=== PATIENT | female | born 1950 | race Two or more races ===

== ENCOUNTER → 2018-03-08 | Outpatient (CLI) | payer MEDICARE | END | disposition home or self-care (01) | LOC: MAMMO 09:37 | DX: Z12.31 Encounter for screening mammogram for malignant neoplasm of breast (principal) | CPT/HCPCS: 77063; 77067 ==

== ENCOUNTER → 2018-04-09 | Outpatient (CLI) | payer MEDICARE ==
[2018-04-09] MEDS: REGADENOSON 0.4 MG/5 ML DISP.SYRIN. IV (09:55)
== END | disposition home or self-care (01) ==
LOC: NM 07:47
DX: I08.1 Rheumatic disorders of both mitral and tricuspid valves (principal); I27.20 Pulmonary hypertension, unspecified; I10 Essential (primary) hypertension; E11.9 Type 2 diabetes mellitus without complications; I73.9 Peripheral vascular disease, unspecified
CPT/HCPCS: 78452; 93017; 93306; 93925; 96374; 96375; 96376; A9500; J2785

== ENCOUNTER 2020-05-18 08:32 | Inpatient (IN) | payer MEDICARE ==
[~2020-05-18] VITALS: Ht 152.4 cm; Wt 82.6 kg
[2020-05-18 09:06] LABS: BASO % 0 % (0-3); EOS # 0.1 x10^3/uL (0.0-0.7); EOS % 1 % (0-3); HEMATOCRIT 28.6 % (36.0-47.0); HEMOGLOBIN 9.5 g/dL (12.0-15.5); LYMPH # 0.8 x10^3/uL (1.0-4.8); LYMPH % 7 % (24-48); MEAN CORPUSCULAR HEMOGLOBIN 28 pg (25-35); MEAN CORPUSCULAR HGB CONC 33 g/dL (31-37); MEAN CORPUSCULAR VOLUME 84 fL (79-100); MONO # 0.7 x10^3/uL (0.0-1.1); MONO % 7 % (0-9); NEUT # 8.8 x10^3/uL (1.8-7.7); NEUT % 85 % (31-73); PLATELET COUNT 230 x10^3/uL (140-400); RED CELL DISTRIBUTION WIDTH 16.3 % (11.5-14.5); WHITE BLOOD COUNT 10.4 x10^3/uL (4.0-11.0)
[2020-05-18 09:10] LABS: CALCIUM 8.6 mg/dL (8.5-10.1); CREATININE 1.2 mg/dL (0.6-1.0); GFR 44.7; POTASSIUM 3.5 mmol/L (3.5-5.1)
[2020-05-18 09:11] LABS: BILIRUBIN,URINE NEGATIVE (NEG); CLARITY,URINE CLEAR; COLOR,URINE YELLOW; NITRITE,URINE NEGATIVE (NEG); PROTEIN,URINE 30 mg/dL (NEG-TRACE); UROBILINOGEN,URINE 0.2 mg/dL (0.2 mg/dL)
[2020-05-18] MEDS ORDERED: cefTRIAXone IV Push 1 GM VIAL. IVP ONE (09:15)
[2020-05-18] MEDS ORDERED: IV NORMAL SALINE 1000ML BAG 1,000 ML IV ONE (09:15)
[2020-05-18 09:16] LABS: PROTHROMBIN TIME PATIENT 14.7 SEC (11.7-14.0)
[2020-05-18 09:17] LABS: BARBITURATES NEG (NEG); BENZODIAZEPINES NEG (NEG); CANNABINOIDS NEG (NEG); COCAINE NEG (NEG); METHADONE NEG (NEG); OPIATES NEG (NEG); PHENCYCLIDINE NEG (NEG)
[2020-05-18 09:19] LABS: AMPHETAMINE/METHAMPHETAMINE NEG (NEG)
[2020-05-18 09:20] LABS: ALBUMIN 2.3 g/dL (3.4-5.0); ALBUMIN/GLOBULIN RATIO 0.5 (1.0-1.7); TOTAL BILIRUBIN 0.4 mg/dL (0.2-1.0); TOTAL PROTEIN 6.9 g/dL (6.4-8.2)
--- NOTE | 2020-05-18 09:23 | RAD ---
PORTABLE CHEST 1V History: Altered mental status. CVA / Spl. Instructions: / History: Comparison: None. Findings: Multifocal interstitial and alveolar opacities. Small left pleural effusion. No pneumothorax. Normal heart size. Impression: 1. Multifocal interstitial and alveolar opacities, may represent multifocal pneumonia including viral pneumonia or pulmonary edema. 2. Small left pleural effusion. Electronically signed by: Mikel Betancur DO (05/18/2020 9:20 AM) [id number]
--- NOTE | 2020-05-18 09:28 | RAD ---
CT HEAD WO CONTRAST History: Reason: altered mental status Comparison: None. Technique: Noncontrast CT imaging was performed of the head. Exposure: One or more of the following individualized dose reduction techniques were utilized for this examination: 1. Automated exposure control 2. Adjustment of the mA and/or kV according to patient size 3. Use of iterative reconstruction technique. Findings: No intracranial hemorrhage. No mass effect. No hydrocephalus. Mild foci of decreased attenuation within the hemispheric white matter, most often due to chronic microvascular ischemia. Imaged orbits are unremarkable. Tiny left sphenoid fluid. Mastoid air cells are clear. No acute calvarial fracture. Impression: 1. No acute intracranial hemorrhage. 2. Hypoattenuation within the left external capsule, may relate to prior insult although age indeterminate. If persistent concern for acute ischemia, MRI can better evaluate. 3. Mild sequelae of chronic microvascular ischemia. Electronically signed by: Mikel Betancur DO (05/18/2020 9:25 AM) [id number]
[2020-05-18 09:32] LABS: AMORPHOUS SEDIMENT,UR PRESENT /HPF; BACTERIA,URINE 0 /HPF (0-FEW); RBC,URINE 0 /HPF (0-2); SQUAMOUS EPITHELIAL CELL,UR FEW /LPF
--- NOTE | 2020-05-18 09:39 | PHYS DOC ---
Past Medical History Past Medical History: Diabetes-Type II, Hypertension Past Surgical History: Other Additional Past Surgical Histo: UNKNOWN SURGICAL HISTORY Smoking Status: Never Smoker Alcohol Use: None General Adult EDM: Chief Complaint: ALTERED MENTAL STATUS HPI: HPI: Patient is a 70-year-old female who presents via EMS this morning secondary to being unresponsive. Apparently the patient was last known normal approximately 9 PM last night. Her son called this morning and she did not respond therefore when checked on her and she was unresponsive. EMS arrived and noted that her blood sugar was 17. Patient is unable to provide any history given her altered mental status. [] Review of Systems: Review of Systems: Review of systems is unobtainable secondary to altered mental status [] Heart Score: Risk Factors: Risk Factors: DM, Current or recent (<one month) smoker, HTN, HLP, family history of CAD, obesity. Risk Scores: Score 0 - 3: 2.5% MACE over next 6 weeks - Discharge Home Score 4 - 6: 20.3% MACE over next 6 weeks - Admit for Clinical Observation Score 7 - 10: 72.7% MACE over next 6 weeks - Early Invasive Strategies Current Medications: Current Medications Medications (Trade) Dose Ordered Sig/Nini Start Time Stop Time Status Last Admin Dose Admin Ceftriaxone Sodium (Rocephin) 1 gm 1X ONCE 05/18/20 09:15 05/18/20 09:16 DC 05/18/20 09:28 1 GM Sodium Chloride 1,000 ml @ 1,000 mls/hr 1X ONCE 05/18/20 09:15 05/18/20 10:14 05/18/20 09:29 1,000 MLS/HR Allergies: Allergies: Allergies Coded Allergies Type Severity Reaction Last Updated Verified No Known Drug Allergies 04/09/18 No Physical Exam: PE: Constitutional: Well developed, well nourished, no acute distress, non-toxic appearance. [] HENT: Normocephalic, atraumatic, bilateral external ears normal, oropharynx moist, no oral exudates, nose normal. [] Eyes: PERRLA, EOMI, conjunctiva normal, no discharge. [] Neck: Normal range of motion, no tenderness, supple, no stridor. [] Cardiovascular:Heart rate regular rhythm, no murmur [] Lungs & Thorax: Bilateral breath sounds clear to auscultation [] Abdomen: Bowel sounds normal, soft, no tenderness, no masses, no pulsatile masses. [] Skin: Warm, dry, no erythema, no rash. [] Back: No tenderness, no CVA tenderness. [] Extremities: No tenderness, no cyanosis, no clubbing, ROM intact, no edema. [] Neurologic: Alert and oriented X 3, normal motor function, normal sensory function, no focal deficits noted. [] Psychologic: Affect normal, judgement normal, mood normal. [] Current Patient Data: Labs: Laboratory Tests Test 05/18/20 08:40 05/18/20 08:50 White Blood Count 10.4 x10^3/uL (4.0-11.0) Red Blood Count 3.40 x10^6/uL (3.50-5.40) L Hemoglobin 9.5 g/dL (12.0-15.5) L Hematocrit 28.6 % (36.0-47.0) L Mean Corpuscular Volume 84 fL (79-100) Mean Corpuscular Hemoglobin 28 pg (25-35) Mean Corpuscular Hemoglobin Concent 33 g/dL (31-37) Red Cell Distribution Width 16.3 % (11.5-14.5) H Platelet Count 230 x10^3/uL (140-400) Neutrophils (%) (Auto) 85 % (31-73) H Lymphocytes (%) (Auto) 7 % (24-48) L Monocytes (%) (Auto) 7 % (0-9) Eosinophils (%) (Auto) 1 % (0-3) Basophils (%) (Auto) 0 % (0-3) Neutrophils # (Auto) 8.8 x10^3/uL (1.8-7.7) H Lymphocytes # (Auto) 0.8 x10^3/uL (1.0-4.8) L Monocytes # (Auto) 0.7 x10^3/uL (0.0-1.1) Eosinophils # (Auto) 0.1 x10^3/uL (0.0-0.7) Basophils # (Auto) 0.0 x10^3/uL (0.0-0.2) Platelet Estimate Pending Prothrombin Time 14.7 SEC (11.7-14.0) H Prothrombin Time INR 1.2 (0.8-1.1) H Activated Partial Thromboplast Time 37 SEC (24-38) Sodium Level 138 mmol/L (136-145) Potassium Level 3.5 mmol/L (3.5-5.1) Chloride Level 104 mmol/L (98-107) Carbon Dioxide Level 22 mmol/L (21-32) Anion Gap 12 (6-14) Blood Urea Nitrogen 40 mg/dL (7-20) H Creatinine 1.2 mg/dL (0.6-1.0) H Estimated GFR (Cockcroft-Gault) 44.7 BUN/Creatinine Ratio 33 (6-20) H Glucose Level 130 mg/dL (70-99) H Lactic Acid Level 0.9 mmol/L (0.4-2.0) Calcium Level 8.6 mg/dL (8.5-10.1) Magnesium Level 2.0 mg/dL (1.8-2.4) Total Bilirubin 0.4 mg/dL (0.2-1.0) Aspartate Amino Transferase (AST) 93 U/L (15-37) H Alanine Aminotransferase (ALT) 54 U/L (14-59) Alkaline Phosphatase 383 U/L (46-116) H Ammonia < 10 mcmol/L (11-34) L Creatine Kinase 45 U/L (26-192) Troponin I Quantitative < 0.017 ng/mL (0.000-0.055) Total Protein 6.9 g/dL (6.4-8.2) Albumin 2.3 g/dL (3.4-5.0) L Albumin/Globulin Ratio 0.5 (1.0-1.7) L Thyroid Stimulating Hormone (TSH) 0.188 uIU/mL (0.358-3.74) L Ethyl Alcohol Level < 10 mg/dL (0-10) Urine Collection Type U cath Urine Color Yellow Urine Clarity Clear Urine pH 5.0 (<5.0-8.0) Urine Specific [place] 1.020 (1.000-1.030) Urine Protein 30 mg/dL (NEG-TRACE) Urine Glucose (UA) Negative mg/dL (NEG) Urine Ketones (Stick) Negative mg/dL (NEG) Urine Blood Negative (NEG) Urine Nitrite Negative (NEG) Urine Bilirubin Negative (NEG) Urine Urobilinogen Dipstick 0.2 mg/dL (0.2 mg/dL) Urine Leukocyte Esterase Small (NEG) Urine RBC 0 /HPF (0-2) Urine WBC 1-4 /HPF (0-4) Urine Squamous Epithelial Cells Few /LPF Urine Amorphous Sediment Present /HPF Urine Bacteria 0 /HPF (0-FEW) Urine Mucus Mod /LPF Urine Opiates Screen Neg (NEG) Urine Methadone Screen Neg (NEG) Urine Barbiturates Neg (NEG) Urine Phencyclidine Screen Neg (NEG) Urine Amphetamine/Methamphetamine Neg (NEG) Urine Benzodiazepines Screen Neg (NEG) Urine Cocaine Screen Neg (NEG) Urine Cannabinoids Screen Neg (NEG) Urine Ethyl Alcohol Neg (NEG) Laboratory Tests 05/18/20 08:40 Laboratory Tests 05/18/20 08:40 Vital Signs: Vital Signs Date Time Temp Pulse Resp B/P (MAP) Pulse Ox O2 Delivery O2 Flow Rate FiO2 05/18/20 09:00 91.3 54 20 114/48 (70) 90 Room Air 91.3 EKG: EKG: [EKG: Normal sinus rhythm rate of [address]-T changes] Radiology/Procedures: Radiology/Procedures: []PROCEDURE: CT HEAD WO CONTRAST CT HEAD WO CONTRAST History: Reason: altered mental status Comparison: None. Technique: Noncontrast CT imaging was performed of the head. Exposure: One or more of the following individualized dose reduction techniques were utilized for this examination: 1. Automated exposure control 2. Adjustment of the mA and/or kV according to patient size 3. Use of iterative reconstruction technique. Findings: No intracranial hemorrhage. No mass effect. No hydrocephalus. Mild foci of decreased attenuation within the hemispheric white matter, most often due to chronic microvascular ischemia. Imaged orbits are unremarkable. Tiny left sphenoid fluid. Mastoid air cells are clear. No acute calvarial fracture. Impression: 1. No acute intracranial hemorrhage. 2. Hypoattenuation within the left external capsule, may relate to prior insult although age indeterminate. If persistent concern for acute ischemia, MRI can better evaluate. 3. Mild sequelae of chronic microvascular ischemia. Course & Med Decision Making: Course & Med Decision Making Pertinent Labs and Imaging studies reviewed. (See chart for details) [ED course: Evaluation reveals a 70-year-old female with altered mental status and hypoglycemia. EMS did give her an amp of D50 in route and her blood sugar on arrival here was in the 160s and slowly her mental status returned. Of note, her core temperature was 91 so a bear hugger was placed.] Dragon Disclaimer: Dragon Disclaimer: This electronic medical record was generated, in whole or in part, using a voice recognition dictation system. Departure Departure Impression: Primary Impression: Altered mental status Qualified Codes: R41.82 - Altered mental status, unspecified Additional Impressions: Hypoglycemia Hypothermia Qualified Codes: T68.XXXA - Hypothermia, initial encounter Disposition: ADMITTED INPATIENT Condition: GUARDED Referrals: GISSELLE EDMONDS MD (PCP) Justicifation of Admission Dx: Justifications for Admission: Justification of Admission Dx: Yes Diabetic Urgency: Diabetic Urgency LISA VELARDE DO May 18, 2020 09:39
[2020-05-18] MEDS ORDERED: ONDANSETRON PF 4 MG/2 ML VIAL. IV PRN ×2 (10:15→16:30)
[2020-05-18] MEDS ORDERED: ACETAMINOPHEN 325 MG TABLET. PO PRN (10:15)
[2020-05-18 10:17] LABS: % BANDS 3 % (0-9); % EOS 1 % (0-5); % LYMPHS 7 % (24-48); % MONOS 4 % (0-10); % SEGS 85 % (35-66); NUCLEATED RBC 1; PLT ESTIMATE ADEQUATE (ADEQUATE)
--- NOTE | 2020-05-18 10:21 | EKG ---
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
[2020-05-18 10:22] LABS: POLYCHROMASIA SLIGHT
--- NOTE | 2020-05-18 10:23 | PDOC1 ---
History and Physical Date of Admission Date of Admission DATE: 05/18/20 TIME: 10:23 Identification/Chief Complaint Chief Complaint SEEN IN ER WITH HYPOTHERMIA, HYPOGLYCEMIA 70-year-old female who presents via EMS this morning secondary to being unresponsive. last known normal approximately 9 PM last night. Her son called this morning and she did not respond therefore when checked on her and she was unresponsive. EMS arrived and noted that her blood sugar was 17. //unable to provide any history given her altered mental status. [ Past Medical History Past Medical History Past Medical History Past Medical History Past Medical History: Diabetes-Type II, Hypertension Past Surgical History: Other Additional Past Surgical Histo: UNKNOWN SURGICAL HISTORY Smoking Status: Never Smoker Alcohol Use: None fhx obesity Family History Family History: Hypertension Social History Smoke: No ALCOHOL: none Drugs: None Current Problem List Problem List Problems Medical Problems: (1) Altered mental status Status: Acute (2) Hypoglycemia Status: Acute (3) Hypothermia Status: Acute Current Medications Current Medications Current Medications Sodium Chloride 1,000 ml @ 1,000 mls/hr 1X ONCE IV Last administered on 05/18/20at 09:29; Start 05/18/20 at 09:15; Stop 05/18/20 at 10:14; Status DC Ceftriaxone Sodium (Rocephin) 1 gm 1X ONCE IVP Last administered on 05/18/20at 09:28; Start 05/18/20 at 09:15; Stop 05/18/20 at 09:16; Status DC Ondansetron HCl (Zofran) 4 mg PRN Q8HRS PRN IV NAUSEA/VOMITING; Start 05/18/20 at 10:15; Stop 05/19/20 at 10:14 Acetaminophen (Tylenol) 650 mg PRN Q4HRS PRN PO FEVER > 100.3'F; Start 05/18/20 at 10:15; Stop 05/19/20 at 10:14 Allergies Allergies: Coded Allergies: No Known Drug Allergies (Unverified , 04/09/18) Physical Exam Physical Exam HENT: Normocephalic, atraumatic, bilateral external ears normal, oropharynx moist, no oral exudates, nose normal. [] Eyes: PERRLA, EOMI, conjunctiva normal, no discharge. [] Neck: Normal range of motion, no tenderness, supple, no stridor. [] Cardiovascular:Heart rate regular rhythm, no murmur [] Lungs & Thorax: Bilateral breath sounds clear to auscultation [] Abdomen: Bowel sounds normal, soft, no tenderness, no masses, no pulsatile masses. [] Skin: Warm, dry, no erythema, no rash. [] Back: No tenderness, no CVA tenderness. [] General: Cooperative, No acute distress HEENT: EOMI, Mucous membr. moist/pink Abdomen: Soft Neuro: Normal speech, Cranial nerves 3-12 NL Psych/Mental Status: Mood NL Vitals Vitals Vital Signs Date Time Temp Pulse Resp B/P (MAP) Pulse Ox O2 Delivery O2 Flow Rate FiO2 05/18/20 09:00 91.3 54 20 114/48 (70) 90 Room Air 91.3 Labs Labs Laboratory Tests Test 05/18/20 08:40 05/18/20 08:50 White Blood Count 10.4 x10^3/uL (4.0-11.0) Red Blood Count 3.40 x10^6/uL (3.50-5.40) Hemoglobin 9.5 g/dL (12.0-15.5) Hematocrit 28.6 % (36.0-47.0) Mean Corpuscular Volume 84 fL (79-100) Mean Corpuscular Hemoglobin 28 pg (25-35) Mean Corpuscular Hemoglobin Concent 33 g/dL (31-37) Red Cell Distribution Width 16.3 % (11.5-14.5) Platelet Count 230 x10^3/uL (140-400) Neutrophils (%) (Auto) 85 % (31-73) Lymphocytes (%) (Auto) 7 % (24-48) Monocytes (%) (Auto) 7 % (0-9) Eosinophils (%) (Auto) 1 % (0-3) Basophils (%) (Auto) 0 % (0-3) Neutrophils # (Auto) 8.8 x10^3/uL (1.8-7.7) Lymphocytes # (Auto) 0.8 x10^3/uL (1.0-4.8) Monocytes # (Auto) 0.7 x10^3/uL (0.0-1.1) Eosinophils # (Auto) 0.1 x10^3/uL (0.0-0.7) Basophils # (Auto) 0.0 x10^3/uL (0.0-0.2) Segmented Neutrophils % 85 % (35-66) Band Neutrophils % 3 % (0-9) Lymphocytes % 7 % (24-48) Monocytes % 4 % (0-10) Eosinophils % 1 % (0-5) Nucleated Red Blood Cells 1 Dohle Bodies Few Platelet Estimate Adequate (ADEQUATE) Polychromasia Slight Prothrombin Time 14.7 SEC (11.7-14.0) Prothromb Time International Ratio 1.2 (0.8-1.1) Activated Partial Thromboplast Time 37 SEC (24-38) Sodium Level 138 mmol/L (136-145) Potassium Level 3.5 mmol/L (3.5-5.1) Chloride Level 104 mmol/L (98-107) Carbon Dioxide Level 22 mmol/L (21-32) Anion Gap 12 (6-14) Blood Urea Nitrogen 40 mg/dL (7-20) Creatinine 1.2 mg/dL (0.6-1.0) Estimated GFR (Cockcroft-Gault) 44.7 BUN/Creatinine Ratio 33 (6-20) Glucose Level 130 mg/dL (70-99) Lactic Acid Level 0.9 mmol/L (0.4-2.0) Calcium Level 8.6 mg/dL (8.5-10.1) Magnesium Level 2.0 mg/dL (1.8-2.4) Total Bilirubin 0.4 mg/dL (0.2-1.0) Aspartate Amino Transf (AST/SGOT) 93 U/L (15-37) Alanine Aminotransferase (ALT/SGPT) 54 U/L (14-59) Alkaline Phosphatase 383 U/L (46-116) Ammonia < 10 mcmol/L (11-34) Creatine Kinase 45 U/L (26-192) Troponin I Quantitative < 0.017 ng/mL (0.000-0.055) Total Protein 6.9 g/dL (6.4-8.2) Albumin 2.3 g/dL (3.4-5.0) Albumin/Globulin Ratio 0.5 (1.0-1.7) Thyroid Stimulating Hormone (TSH) 0.188 uIU/mL (0.358-3.74) Ethyl Alcohol Level < 10 mg/dL (0-10) Urine Collection Type U cath Urine Color Yellow Urine Clarity Clear Urine pH 5.0 (<5.0-8.0) Urine Specific [place] 1.020 (1.000-1.030) Urine Protein 30 mg/dL (NEG-TRACE) Urine Glucose (UA) Negative mg/dL (NEG) Urine Ketones (Stick) Negative mg/dL (NEG) Urine Blood Negative (NEG) Urine Nitrite Negative (NEG) Urine Bilirubin Negative (NEG) Urine Urobilinogen Dipstick 0.2 mg/dL (0.2 mg/dL) Urine Leukocyte Esterase Small (NEG) Urine RBC 0 /HPF (0-2) Urine WBC 1-4 /HPF (0-4) Urine Squamous Epithelial Cells Few /LPF Urine Amorphous Sediment Present /HPF Urine Bacteria 0 /HPF (0-FEW) Urine Mucus Mod /LPF Urine Opiates Screen Neg (NEG) Urine Methadone Screen Neg (NEG) Urine Barbiturates Neg (NEG) Urine Phencyclidine Screen Neg (NEG) Urine Amphetamine/Methamphetamine Neg (NEG) Urine Benzodiazepines Screen Neg (NEG) Urine Cocaine Screen Neg (NEG) Urine Cannabinoids Screen Neg (NEG) Urine Ethyl Alcohol Neg (NEG) Laboratory Tests Test 05/18/20 08:40 05/18/20 08:50 White Blood Count 10.4 x10^3/uL (4.0-11.0) Red Blood Count 3.40 x10^6/uL (3.50-5.40) Hemoglobin 9.5 g/dL (12.0-15.5) Hematocrit 28.6 % (36.0-47.0) Mean Corpuscular Volume 84 fL (79-100) Mean Corpuscular Hemoglobin 28 pg (25-35) Mean Corpuscular Hemoglobin Concent 33 g/dL (31-37) Red Cell Distribution Width 16.3 % (11.5-14.5) Platelet Count 230 x10^3/uL (140-400) Neutrophils (%) (Auto) 85 % (31-73) Lymphocytes (%) (Auto) 7 % (24-48) Monocytes (%) (Auto) 7 % (0-9) Eosinophils (%) (Auto) 1 % (0-3) Basophils (%) (Auto) 0 % (0-3) Neutrophils # (Auto) 8.8 x10^3/uL (1.8-7.7) Lymphocytes # (Auto) 0.8 x10^3/uL (1.0-4.8) Monocytes # (Auto) 0.7 x10^3/uL (0.0-1.1) Eosinophils # (Auto) 0.1 x10^3/uL (0.0-0.7) Basophils # (Auto) 0.0 x10^3/uL (0.0-0.2) Segmented Neutrophils % 85 % (35-66) Band Neutrophils % 3 % (0-9) Lymphocytes % 7 % (24-48) Monocytes % 4 % (0-10) Eosinophils % 1 % (0-5) Nucleated Red Blood Cells 1 Dohle Bodies Few Platelet Estimate Adequate (ADEQUATE) Polychromasia Slight Prothrombin Time 14.7 SEC (11.7-14.0) Prothromb Time International Ratio 1.2 (0.8-1.1) Activated Partial Thromboplast Time 37 SEC (24-38) Sodium Level 138 mmol/L (136-145) Potassium Level 3.5 mmol/L (3.5-5.1) Chloride Level 104 mmol/L (98-107) Carbon Dioxide Level 22 mmol/L (21-32) Anion Gap 12 (6-14) Blood Urea Nitrogen 40 mg/dL (7-20) Creatinine 1.2 mg/dL (0.6-1.0) Estimated GFR (Cockcroft-Gault) 44.7 BUN/Creatinine Ratio 33 (6-20) Glucose Level 130 mg/dL (70-99) Lactic Acid Level 0.9 mmol/L (0.4-2.0) Calcium Level 8.6 mg/dL (8.5-10.1) Magnesium Level 2.0 mg/dL (1.8-2.4) Total Bilirubin 0.4 mg/dL (0.2-1.0) Aspartate Amino Transf (AST/SGOT) 93 U/L (15-37) Alanine Aminotransferase (ALT/SGPT) 54 U/L (14-59) Alkaline Phosphatase 383 U/L (46-116) Ammonia < 10 mcmol/L (11-34) Creatine Kinase 45 U/L (26-192) Troponin I Quantitative < 0.017 ng/mL (0.000-0.055) Total Protein 6.9 g/dL (6.4-8.2) Albumin 2.3 g/dL (3.4-5.0) Albumin/Globulin Ratio 0.5 (1.0-1.7) Thyroid Stimulating Hormone (TSH) 0.188 uIU/mL (0.358-3.74) Ethyl Alcohol Level < 10 mg/dL (0-10) Urine Collection Type U cath Urine Color Yellow Urine Clarity Clear Urine pH 5.0 (<5.0-8.0) Urine Specific [place] 1.020 (1.000-1.030) Urine Protein 30 mg/dL (NEG-TRACE) Urine Glucose (UA) Negative mg/dL (NEG) Urine Ketones (Stick) Negative mg/dL (NEG) Urine Blood Negative (NEG) Urine Nitrite Negative (NEG) Urine Bilirubin Negative (NEG) Urine Urobilinogen Dipstick 0.2 mg/dL (0.2 mg/dL) Urine Leukocyte Esterase Small (NEG) Urine RBC 0 /HPF (0-2) Urine WBC 1-4 /HPF (0-4) Urine Squamous Epithelial Cells Few /LPF Urine Amorphous Sediment Present /HPF Urine Bacteria 0 /HPF (0-FEW) Urine Mucus Mod /LPF Urine Opiates Screen Neg (NEG) Urine Methadone Screen Neg (NEG) Urine Barbiturates Neg (NEG) Urine Phencyclidine Screen Neg (NEG) Urine Amphetamine/Methamphetamine Neg (NEG) Urine Benzodiazepines Screen Neg (NEG) Urine Cocaine Screen Neg (NEG) Urine Cannabinoids Screen Neg (NEG) Urine Ethyl Alcohol Neg (NEG) Images Images PORTABLE CHEST 1V History: Altered mental status. CVA / Spl. Instructions: / History: Comparison: None. Findings: Multifocal interstitial and alveolar opacities. Small left pleural effusion. No pneumothorax. Normal heart size. Impression: 1. Multifocal interstitial and alveolar opacities, may represent multifocal pneumonia including viral pneumonia or pulmonary edema. 2. Small left pleural effusion. Electronically signed by: Mikel Betancur DO (05/18/2020 9:20 AM) [id number] CT HEAD WO CONTRAST History: Reason: altered mental status Comparison: None. Technique: Noncontrast CT imaging was performed of the head. Exposure: One or more of the following individualized dose reduction techniques were utilized for this examination: 1. Automated exposure control 2. Adjustment of the mA and/or kV according to patient size 3. Use of iterative reconstruction technique. Findings: No intracranial hemorrhage. No mass effect. No hydrocephalus. Mild foci of decreased attenuation within the hemispheric white matter, most often due to chronic microvascular ischemia. Imaged orbits are unremarkable. Tiny left sphenoid fluid. Mastoid air cells are clear. No acute calvarial fracture. Impression: 1. No acute intracranial hemorrhage. 2. Hypoattenuation within the left external capsule, may relate to prior insult although age indeterminate. If persistent concern for acute ischemia, MRI can better evaluate. 3. Mild sequelae of chronic microvascular ischemia. Electronically signed by: Mikel Betancur DO (05/18/2020 9:25 AM) [id number] VTE Prophylaxis Ordered VTE Prophylaxis Devices: Yes VTE Pharmacological Prophylaxi: Yes Assessment/Plan Assessment/Plan Impression: 1. ALTERED MENTAL STATUS sec to severe hypoglycemia No acute intracranial hemorrhage. 2. Hypoattenuation within the left external capsule, may relate to prior insult although age indeterminate. If persistent concern for acute ischemia, MRI can better evaluate. 3. Mild sequelae of chronic microvascular ischemia. 4. acute metabolic encephalopathy, IMPROVING 5. hypothermia 6. JAKE 7. Multifocal interstitial and alveolar opacities, may represent multifocal pneumonia including viral pneumonia or pulmonary edema. 8. SEVERE protein-caloric malnutrition plan admit icu bed hypoglycemia protocol warm patient neurology consult IV FLUID SUPPORT COVID 19 SCREEN PULM CONSULT 44 MIN CC TIME Justicifation of Admission Dx: Justifications for Admission: Justification of Admission Dx: Yes Altered Mental Status: Altered Mental Status Diabetic Urgency: Diabetic Urgency Comments: admitted with severe hypoglycemia, hypothermia, severe, possible covid-19 SHIVA GILLILAND MD May 18, 2020 10:23
[2020-05-18] MEDS ORDERED: SODIUM PHOSPHATES 19/7GM 133 ML ENEMA. PR PRN (16:30)
[2020-05-18] MEDS ORDERED: ALBUTEROL SULFATE 2.5 MG/3 ML NEBU. NEB PRN (16:30)
[2020-05-18] MEDS ORDERED: 0.9 % SODIUM CHLORIDE 10 ML DISP.SYRIN. IV PRN (16:30)
[2020-05-18] MEDS ORDERED: ACETAMINOPHEN 650 MG SUPP.RECT. PR PRN (16:30)
--- NOTE | 2020-05-18 16:33 | PDOC2 ---
NEUROLOGY CONSULT Date of Admission Date of Admission DATE: 05/18/20 TIME: 16:28 Reason for Consult Reason for Consult: altered mental status, old stroke Referring Physician Referring Physician: Dr. Merlos Source Source: Chart review, Patient History of Present Illness History of Present Illness Patient is a 70-year-old right-handed female admitted with altered mental status found to have hypothermia, temperature 91, and hypoglycemia, sugar level 17. Bud collins is feeling fine now. She does not know what happened to her. She was last seen normal last night. There is no history of stroke, seizure, or head injury. Past Medical History Cardiovascular: HTN Endocrine: Diabetes Past Surgical History Past Surgical History: No pertinent history Family History Family History: DM Social History Social History , retired, no alcohol or tobacco Current Medications Current Medications Current Medications Sodium Chloride 1,000 ml @ 1,000 mls/hr 1X ONCE IV Last administered on 05/18/20at 09:29; Start 05/18/20 at 09:15; Stop 05/18/20 at 10:14; Status DC Ceftriaxone Sodium (Rocephin) 1 gm 1X ONCE IVP Last administered on 05/18/20at 09:28; Start 05/18/20 at 09:15; Stop 05/18/20 at 09:16; Status DC Ondansetron HCl (Zofran) 4 mg PRN Q8HRS PRN IV NAUSEA/VOMITING; Start 05/18/20 at 10:15; Stop 05/18/20 at 16:24; Status DC Acetaminophen (Tylenol) 650 mg PRN Q4HRS PRN PO FEVER > 100.3'F; Start 05/18/20 at 10:15; Stop 05/18/20 at 16:24; Status DC Ceftriaxone Sodium (Rocephin) 1 gm Q24H IVP ; Start 05/19/20 at 09:00 Sodium Chloride (Normal Saline Flush) 3 ml QSHIFT PRN IV AFTER MEDS AND BLOOD DRAWS; Start 05/18/20 at 16:30 Sodium Chloride 1,000 ml @ 85 mls/hr [id number] IV ; Start 05/18/20 at 16:20 Ondansetron HCl (Zofran) 4 mg PRN Q4HRS PRN IV NAUSEA/VOMITING; Start 05/18/20 at 16:30 Acetaminophen (Tylenol) 650 mg PRN Q4HRS PRN PO TEMP OVER 100.4F OR MILD PAIN; Start 05/18/20 at 16:30 Acetaminophen (Tylenol Supp) 650 mg PRN Q4HRS PRN AL TEMP OVER 100.4F OR MILD PAIN; Start 05/18/20 at 16:30 Sodium Monofluorophosphate (Fleet Adult) 133 ml PRN DAILY PRN AL CONSTIPATION; Start 05/18/20 at 16:30 Docusate Sodium (Colace) 100 mg PRN BID PRN PO HARD STOOLS; Start 05/18/20 at 16:30 Albuterol Sulfate (Ventolin Neb Soln) 2.5 mg PRN Q4HRS PRN NEB SHORTNESS OF BREATH; Start 05/18/20 at 16:30 Guaifenesin (Robitussin) 200 mg PRN Q4HRS PRN PO COUGH; Start 05/18/20 at 16:30 Enoxaparin Sodium (Lovenox 40mg Syringe) 40 mg Q24H SQ ; Start 05/18/20 at 17:00 Allergies Allergies: Coded Allergies: No Known Drug Allergies (Unverified , 04/09/18) ROS Review of System Negative for fever, chills, weight loss, shortness of breath, chest pain, indigestion, hematochezia, melena, and dysuria. Full 14-point review of systems is negative. Physical Exam Physical Examination General: Well-developed, well-nourished female in no acute distress HEENT: Normocephalic andatraumatic. Temporal arteriespulsatile and nontender. Neck: Supple without bruit, no meningismus Musculoskeletal: Stability:see neurologic. Gait exam:see neurologic. Tone:see neurologi c.Strength:see neurologic. Neurological: Mental Status:intact, orientation, memory, attention span/concentration, language, fund of knowledge normal, speaks only [place], is only 1 day off on the date. Cranial Nerves:Pupils equal and reactive to light, extraocular movements areintact, visual silvestre are full to confrontation. Facial sensation is normal. There is no facial asymmetry. Vestibulo-ocular reflex is intact. Palate elevates and tongue protrudes in midline. All other cranial related problems are negative except as mentioned before.Reflexes:2+ and symmetric with flexor plantar responses. Motor:5/5 strength with normal tone and bulk. Coordination:Finger-nose finger and [id number] testing are normal. Rapid alternating movements and fine finger movements are intact. Gait:Not tested. Sensory:Normal pinprick, vibration, light touch, proprioception. Vitals VITALS Vital Signs Date Time Temp Pulse Resp B/P (MAP) Pulse Ox O2 Delivery O2 Flow Rate FiO2 05/18/20 16:16 98.3 98.3 05/18/20 15:00 72 18 95 05/18/20 09:00 114/48 (70) Room Air Labs Labs Laboratory Tests Test 05/18/20 08:36 05/18/20 08:40 05/18/20 08:50 Glucose (Fingerstick) 115 mg/dL (70-99) White Blood Count 10.4 x10^3/uL (4.0-11.0) Red Blood Count 3.40 x10^6/uL (3.50-5.40) Hemoglobin 9.5 g/dL (12.0-15.5) Hematocrit 28.6 % (36.0-47.0) Mean Corpuscular Volume 84 fL (79-100) Mean Corpuscular Hemoglobin 28 pg (25-35) Mean Corpuscular Hemoglobin Concent 33 g/dL (31-37) Red Cell Distribution Width 16.3 % (11.5-14.5) Platelet Count 230 x10^3/uL (140-400) Neutrophils (%) (Auto) 85 % (31-73) Lymphocytes (%) (Auto) 7 % (24-48) Monocytes (%) (Auto) 7 % (0-9) Eosinophils (%) (Auto) 1 % (0-3) Basophils (%) (Auto) 0 % (0-3) Neutrophils # (Auto) 8.8 x10^3/uL (1.8-7.7) Lymphocytes # (Auto) 0.8 x10^3/uL (1.0-4.8) Monocytes # (Auto) 0.7 x10^3/uL (0.0-1.1) Eosinophils # (Auto) 0.1 x10^3/uL (0.0-0.7) Basophils # (Auto) 0.0 x10^3/uL (0.0-0.2) Segmented Neutrophils % 85 % (35-66) Band Neutrophils % 3 % (0-9) Lymphocytes % 7 % (24-48) Monocytes % 4 % (0-10) Eosinophils % 1 % (0-5) Nucleated Red Blood Cells 1 Dohle Bodies Few Platelet Estimate Adequate (ADEQUATE) Polychromasia Slight Prothrombin Time 14.7 SEC (11.7-14.0) Prothromb Time International Ratio 1.2 (0.8-1.1) Activated Partial Thromboplast Time 37 SEC (24-38) Sodium Level 138 mmol/L (136-145) Potassium Level 3.5 mmol/L (3.5-5.1) Chloride Level 104 mmol/L (98-107) Carbon Dioxide Level 22 mmol/L (21-32) Anion Gap 12 (6-14) Blood Urea Nitrogen 40 mg/dL (7-20) Creatinine 1.2 mg/dL (0.6-1.0) Estimated GFR (Cockcroft-Gault) 44.7 BUN/Creatinine Ratio 33 (6-20) Glucose Level 130 mg/dL (70-99) Lactic Acid Level 0.9 mmol/L (0.4-2.0) Calcium Level 8.6 mg/dL (8.5-10.1) Magnesium Level 2.0 mg/dL (1.8-2.4) Total Bilirubin 0.4 mg/dL (0.2-1.0) Aspartate Amino Transf (AST/SGOT) 93 U/L (15-37) Alanine Aminotransferase (ALT/SGPT) 54 U/L (14-59) Alkaline Phosphatase 383 U/L (46-116) Ammonia < 10 mcmol/L (11-34) Creatine Kinase 45 U/L (26-192) Troponin I Quantitative < 0.017 ng/mL (0.000-0.055) Total Protein 6.9 g/dL (6.4-8.2) Albumin 2.3 g/dL (3.4-5.0) Albumin/Globulin Ratio 0.5 (1.0-1.7) Thyroid Stimulating Hormone (TSH) 0.188 uIU/mL (0.358-3.74) Ethyl Alcohol Level < 10 mg/dL (0-10) Urine Collection Type U cath Urine Color Yellow Urine Clarity Clear Urine pH 5.0 (<5.0-8.0) Urine Specific [place] 1.020 (1.000-1.030) Urine Protein 30 mg/dL (NEG-TRACE) Urine Glucose (UA) Negative mg/dL (NEG) Urine Ketones (Stick) Negative mg/dL (NEG) Urine Blood Negative (NEG) Urine Nitrite Negative (NEG) Urine Bilirubin Negative (NEG) Urine Urobilinogen Dipstick 0.2 mg/dL (0.2 mg/dL) Urine Leukocyte Esterase Small (NEG) Urine RBC 0 /HPF (0-2) Urine WBC 1-4 /HPF (0-4) Urine Squamous Epithelial Cells Few /LPF Urine Amorphous Sediment Present /HPF Urine Bacteria 0 /HPF (0-FEW) Urine Mucus Mod /LPF Urine Opiates Screen Neg (NEG) Urine Methadone Screen Neg (NEG) Urine Barbiturates Neg (NEG) Urine Phencyclidine Screen Neg (NEG) Urine Amphetamine/Methamphetamine Neg (NEG) Urine Benzodiazepines Screen Neg (NEG) Urine Cocaine Screen Neg (NEG) Urine Cannabinoids Screen Neg (NEG) Urine Ethyl Alcohol Neg (NEG) Laboratory Tests Test 05/18/20 08:36 05/18/20 08:40 05/18/20 08:50 Glucose (Fingerstick) 115 mg/dL (70-99) White Blood Count 10.4 x10^3/uL (4.0-11.0) Red Blood Count 3.40 x10^6/uL (3.50-5.40) Hemoglobin 9.5 g/dL (12.0-15.5) Hematocrit 28.6 % (36.0-47.0) Mean Corpuscular Volume 84 fL (79-100) Mean Corpuscular Hemoglobin 28 pg (25-35) Mean Corpuscular Hemoglobin Concent 33 g/dL (31-37) Red Cell Distribution Width 16.3 % (11.5-14.5) Platelet Count 230 x10^3/uL (140-400) Neutrophils (%) (Auto) 85 % (31-73) Lymphocytes (%) (Auto) 7 % (24-48) Monocytes (%) (Auto) 7 % (0-9) Eosinophils (%) (Auto) 1 % (0-3) Basophils (%) (Auto) 0 % (0-3) Neutrophils # (Auto) 8.8 x10^3/uL (1.8-7.7) Lymphocytes # (Auto) 0.8 x10^3/uL (1.0-4.8) Monocytes # (Auto) 0.7 x10^3/uL (0.0-1.1) Eosinophils # (Auto) 0.1 x10^3/uL (0.0-0.7) Basophils # (Auto) 0.0 x10^3/uL (0.0-0.2) Segmented Neutrophils % 85 % (35-66) Band Neutrophils % 3 % (0-9) Lymphocytes % 7 % (24-48) Monocytes % 4 % (0-10) Eosinophils % 1 % (0-5) Nucleated Red Blood Cells 1 Dohle Bodies Few Platelet Estimate Adequate (ADEQUATE) Polychromasia Slight Prothrombin Time 14.7 SEC (11.7-14.0) Prothromb Time International Ratio 1.2 (0.8-1.1) Activated Partial Thromboplast Time 37 SEC (24-38) Sodium Level 138 mmol/L (136-145) Potassium Level 3.5 mmol/L (3.5-5.1) Chloride Level 104 mmol/L (98-107) Carbon Dioxide Level 22 mmol/L (21-32) Anion Gap 12 (6-14) Blood Urea Nitrogen 40 mg/dL (7-20) Creatinine 1.2 mg/dL (0.6-1.0) Estimated GFR (Cockcroft-Gault) 44.7 BUN/Creatinine Ratio 33 (6-20) Glucose Level 130 mg/dL (70-99) Lactic Acid Level 0.9 mmol/L (0.4-2.0) Calcium Level 8.6 mg/dL (8.5-10.1) Magnesium Level 2.0 mg/dL (1.8-2.4) Total Bilirubin 0.4 mg/dL (0.2-1.0) Aspartate Amino Transf (AST/SGOT) 93 U/L (15-37) Alanine Aminotransferase (ALT/SGPT) 54 U/L (14-59) Alkaline Phosphatase 383 U/L (46-116) Ammonia < 10 mcmol/L (11-34) Creatine Kinase 45 U/L (26-192) Troponin I Quantitative < 0.017 ng/mL (0.000-0.055) Total Protein 6.9 g/dL (6.4-8.2) Albumin 2.3 g/dL (3.4-5.0) Albumin/Globulin Ratio 0.5 (1.0-1.7) Thyroid Stimulating Hormone (TSH) 0.188 uIU/mL (0.358-3.74) Ethyl Alcohol Level < 10 mg/dL (0-10) Urine Collection Type U cath Urine Color Yellow Urine Clarity Clear Urine pH 5.0 (<5.0-8.0) Urine Specific [place] 1.020 (1.000-1.030) Urine Protein 30 mg/dL (NEG-TRACE) Urine Glucose (UA) Negative mg/dL (NEG) Urine Ketones (Stick) Negative mg/dL (NEG) Urine Blood Negative (NEG) Urine Nitrite Negative (NEG) Urine Bilirubin Negative (NEG) Urine Urobilinogen Dipstick 0.2 mg/dL (0.2 mg/dL) Urine Leukocyte Esterase Small (NEG) Urine RBC 0 /HPF (0-2) Urine WBC 1-4 /HPF (0-4) Urine Squamous Epithelial Cells Few /LPF Urine Amorphous Sediment Present /HPF Urine Bacteria 0 /HPF (0-FEW) Urine Mucus Mod /LPF Urine Opiates Screen Neg (NEG) Urine Methadone Screen Neg (NEG) Urine Barbiturates Neg (NEG) Urine Phencyclidine Screen Neg (NEG) Urine Amphetamine/Methamphetamine Neg (NEG) Urine Benzodiazepines Screen Neg (NEG) Urine Cocaine Screen Neg (NEG) Urine Cannabinoids Screen Neg (NEG) Urine Ethyl Alcohol Neg (NEG) Images Images CT HEAD WO CONTRAST History: Reason: altered mental status Comparison: None. Technique: Noncontrast CT imaging was performed of the head. Exposure: One or more of the following individualized dose reduction techniques were utilized for this examination: 1. Automated exposure control 2. Adjustment of the mA and/or kV according to patient size 3. Use of iterative reconstruction technique. Findings: No intracranial hemorrhage. No mass effect. No hydrocephalus. Mild foci of decreased attenuation within the hemispheric white matter, most often due to chronic microvascular ischemia. Imaged orbits are unremarkable. Tiny left sphenoid fluid. Mastoid air cells are clear. No acute calvarial fracture. Impression: 1. No acute intracranial hemorrhage. 2. Hypoattenuation within the left external capsule, may relate to prior insult although age indeterminate. If persistent concern for acute ischemia, MRI can better evaluate. 3. Mild sequelae of chronic microvascular ischemia. Assessment/Plan Assessment/Plan Impression: Encephalopathy due to hypoglycemia and hypothermia, no evidence of any acute stroke, the CT finding is not clinically relevant and does not merit any additional attention especially with her lack of symptoms and normal examination. Moreover, this would be expected in someone who has had hypertension and diabetes for several years. Recommendations: Aspirin and statin when able to take orally safely Treat hypoglycemia and hypothermia as has already been done. No additional neurological studies needed. Thank you for letting me help with the patient's care. DARREL CASTRO MD May 18, 2020 16:33
[2020-05-18 16:45] VITALS: BP 135/69
[2020-05-18] MEDS ORDERED: ASPI-886 PO (17:31)
[2020-05-18] MEDS ORDERED: LISI1TAB20 PO (17:31)
[2020-05-18] MEDS ORDERED: METO50TA6 PO (17:31)
[2020-05-18] MEDS ORDERED: HYDR100T24 PO (17:31)
[2020-05-18] MEDS ORDERED: ROSU10TA26 PO (17:31)
[2020-05-18] MEDS ORDERED: POTA10TA6 PO (17:37)
[2020-05-18] MEDS ORDERED: PIOG45TA40 PO (17:37)
[2020-05-18] MEDS ORDERED: OMEP20CA16 PO (17:37)
[2020-05-18] MEDS ORDERED: DICL75TA PO (17:37)
[2020-05-18] MEDS ORDERED: METF10007 PO (17:37)
[2020-05-18] MEDS: IV NORMAL SALINE 1000ML BAG 1,000 ML IV SCH (18:33)
[2020-05-18] MEDS: ENOXAPARIN 40 MG/0.4 ML SYRINGE. SQ SCH (18:34)
[2020-05-18 19:00] VITALS: BP 136/63
[2020-05-18 23:00] VITALS: BP 142/62
[2020-05-18] MEDS: ACETAMINOPHEN 325 MG TABLET. PO PRN (23:20)
[2020-05-19 03:00] VITALS: BP 128/58
[2020-05-19 04:55] LABS: BASO % 0 % (0-3); EOS % 0 % (0-3); HEMATOCRIT 27.2 % (36.0-47.0); HEMOGLOBIN 9.1 g/dL (12.0-15.5); LYMPH % 7 % (24-48); MEAN CORPUSCULAR HEMOGLOBIN 27 pg (25-35); MEAN CORPUSCULAR HGB CONC 33 g/dL (31-37); MEAN CORPUSCULAR VOLUME 82 fL (79-100); MONO # 0.8 x10^3/uL (0.0-1.1); MONO % 5 % (0-9); NEUT # 12.8 x10^3/uL (1.8-7.7); NEUT % 88 % (31-73); PLATELET COUNT 266 x10^3/uL (140-400); RED BLOOD COUNT 3.31 x10^6/uL (3.50-5.40); WHITE BLOOD COUNT 14.6 x10^3/uL (4.0-11.0)
[2020-05-19 05:21] LABS: ALBUMIN 1.9 g/dL (3.4-5.0); ALBUMIN/GLOBULIN RATIO 0.4 (1.0-1.7); CALCIUM 8.2 mg/dL (8.5-10.1); GFR 55.1; POTASSIUM 3.6 mmol/L (3.5-5.1); TOTAL BILIRUBIN 0.4 mg/dL (0.2-1.0); TOTAL PROTEIN 6.3 g/dL (6.4-8.2)
[2020-05-19] MEDS: IV NORMAL SALINE 1000ML BAG 1,000 ML IV SCH ×3 (05:42→21:28)
[2020-05-19 07:00] VITALS: BP_SYST 114; BP_SYST 136; BP_DIAS 56; BP_DIAS 58
[2020-05-19] MEDS: cefTRIAXone IV Push 1 GM VIAL. IVP SCH (08:01)
[2020-05-19] MEDS: ACETAMINOPHEN 325 MG TABLET. PO PRN (08:36)
--- NOTE | 2020-05-19 09:20 | NUR ---
SW following. Discussed with RN, pt from home alone, AMS has cleared. COVID-19 test pending, pt is on 4L oxygen, which she does not use at home. SW will continue to follow.
[2020-05-19 09:41] LABS: C-REACTIVE PROTEIN 308.1 mg/L (0-3.3)
--- NOTE | 2020-05-19 10:06 | PDOC ---
PROGRESS NOTES Assessment Problems Medical Problems: (1) Altered mental status Status: Acute (2) Hypoglycemia Status: Acute (3) Hypothermia Status: Acute Encephalopathy due to hypoglycemia and hypothermia, no evidence of any acute stroke, the CT finding is not clinically relevant and does not merit any additional attention especially with her lack of symptoms and normal examination. Moreover, this would be expected in someone who has had hypertension and diabetes for several years. Plan Aspirin and statin Treat hypoglycemia and hypothermia as has already been done. No additional neurological studies needed. Okay for discharge Follow-up with neurology as needed Subjective No complaints Objective Vital Signs Date Time Temp Pulse Resp B/P (MAP) Pulse Ox O2 Delivery O2 Flow Rate FiO2 05/19/20 07:00 102.4 108 20 136/58 (84) 90 Nasal Cannula 2.0 102.4 Intake and Output 05/19/20 07:00 Intake Total 0 ml Balance 0 ml Intake Oral 0 ml # Voids 3 PHYSICAL EXAM Alert. Oriented to time, place and person. Speaks only [place]. PERRL. EOMI. CN: no focal findings. Muscle tone: normal. Muscle strength: 5/5 DTR: 2+ Plantar reflex: flexor Gait: not examined in bed. Sensory exam: no abnormal findings. No cerebellar signs elicited. Review of Relevant I have reviewed the following items kavya (where applicable) has been applied. Labs Laboratory Tests Test 05/18/20 08:36 05/18/20 08:40 05/18/20 08:50 05/19/20 00:31 Glucose (Fingerstick) 115 mg/dL (70-99) 69 mg/dL (70-99) White Blood Count 10.4 x10^3/uL (4.0-11.0) Red Blood Count 3.40 x10^6/uL (3.50-5.40) Hemoglobin 9.5 g/dL (12.0-15.5) Hematocrit 28.6 % (36.0-47.0) Mean Corpuscular Volume 84 fL (79-100) Mean Corpuscular Hemoglobin 28 pg (25-35) Mean Corpuscular Hemoglobin Concent 33 g/dL (31-37) Red Cell Distribution Width 16.3 % (11.5-14.5) Platelet Count 230 x10^3/uL (140-400) Neutrophils (%) (Auto) 85 % (31-73) Lymphocytes (%) (Auto) 7 % (24-48) Monocytes (%) (Auto) 7 % (0-9) Eosinophils (%) (Auto) 1 % (0-3) Basophils (%) (Auto) 0 % (0-3) Neutrophils # (Auto) 8.8 x10^3/uL (1.8-7.7) Lymphocytes # (Auto) 0.8 x10^3/uL (1.0-4.8) Monocytes # (Auto) 0.7 x10^3/uL (0.0-1.1) Eosinophils # (Auto) 0.1 x10^3/uL (0.0-0.7) Basophils # (Auto) 0.0 x10^3/uL (0.0-0.2) Segmented Neutrophils % 85 % (35-66) Band Neutrophils % 3 % (0-9) Lymphocytes % 7 % (24-48) Monocytes % 4 % (0-10) Eosinophils % 1 % (0-5) Nucleated Red Blood Cells 1 Dohle Bodies Few Platelet Estimate Adequate (ADEQUATE) Polychromasia Slight Prothrombin Time 14.7 SEC (11.7-14.0) Prothromb Time International Ratio 1.2 (0.8-1.1) Activated Partial Thromboplast Time 37 SEC (24-38) Sodium Level 138 mmol/L (136-145) Potassium Level 3.5 mmol/L (3.5-5.1) Chloride Level 104 mmol/L (98-107) Carbon Dioxide Level 22 mmol/L (21-32) Anion Gap 12 (6-14) Blood Urea Nitrogen 40 mg/dL (7-20) Creatinine 1.2 mg/dL (0.6-1.0) Estimated GFR (Cockcroft-Gault) 44.7 BUN/Creatinine Ratio 33 (6-20) Glucose Level 130 mg/dL (70-99) Lactic Acid Level 0.9 mmol/L (0.4-2.0) Calcium Level 8.6 mg/dL (8.5-10.1) Magnesium Level 2.0 mg/dL (1.8-2.4) Total Bilirubin 0.4 mg/dL (0.2-1.0) Aspartate Amino Transf (AST/SGOT) 93 U/L (15-37) Alanine Aminotransferase (ALT/SGPT) 54 U/L (14-59) Alkaline Phosphatase 383 U/L (46-116) Ammonia < 10 mcmol/L (11-34) Creatine Kinase 45 U/L (26-192) Troponin I Quantitative < 0.017 ng/mL (0.000-0.055) Total Protein 6.9 g/dL (6.4-8.2) Albumin 2.3 g/dL (3.4-5.0) Albumin/Globulin Ratio 0.5 (1.0-1.7) Thyroid Stimulating Hormone (TSH) 0.188 uIU/mL (0.358-3.74) Ethyl Alcohol Level < 10 mg/dL (0-10) Urine Collection Type U cath Urine Color Yellow Urine Clarity Clear Urine pH 5.0 (<5.0-8.0) Urine Specific [place] 1.020 (1.000-1.030) Urine Protein 30 mg/dL (NEG-TRACE) Urine Glucose (UA) Negative mg/dL (NEG) Urine Ketones (Stick) Negative mg/dL (NEG) Urine Blood Negative (NEG) Urine Nitrite Negative (NEG) Urine Bilirubin Negative (NEG) Urine Urobilinogen Dipstick 0.2 mg/dL (0.2 mg/dL) Urine Leukocyte Esterase Small (NEG) Urine RBC 0 /HPF (0-2) Urine WBC 1-4 /HPF (0-4) Urine Squamous Epithelial Cells Few /LPF Urine Amorphous Sediment Present /HPF Urine Bacteria 0 /HPF (0-FEW) Urine Mucus Mod /LPF Urine Opiates Screen Neg (NEG) Urine Methadone Screen Neg (NEG) Urine Barbiturates Neg (NEG) Urine Phencyclidine Screen Neg (NEG) Urine Amphetamine/Methamphetamine Neg (NEG) Urine Benzodiazepines Screen Neg (NEG) Urine Cocaine Screen Neg (NEG) Urine Cannabinoids Screen Neg (NEG) Urine Ethyl Alcohol Neg (NEG) Test 05/19/20 01:10 05/19/20 03:45 05/19/20 08:08 Glucose (Fingerstick) 130 mg/dL (70-99) 134 mg/dL (70-99) White Blood Count 14.6 x10^3/uL (4.0-11.0) Red Blood Count 3.31 x10^6/uL (3.50-5.40) Hemoglobin 9.1 g/dL (12.0-15.5) Hematocrit 27.2 % (36.0-47.0) Mean Corpuscular Volume 82 fL (79-100) Mean Corpuscular Hemoglobin 27 pg (25-35) Mean Corpuscular Hemoglobin Concent 33 g/dL (31-37) Red Cell Distribution Width 16.0 % (11.5-14.5) Platelet Count 266 x10^3/uL (140-400) Neutrophils (%) (Auto) 88 % (31-73) Lymphocytes (%) (Auto) 7 % (24-48) Monocytes (%) (Auto) 5 % (0-9) Eosinophils (%) (Auto) 0 % (0-3) Basophils (%) (Auto) 0 % (0-3) Neutrophils # (Auto) 12.8 x10^3/uL (1.8-7.7) Lymphocytes # (Auto) 1.0 x10^3/uL (1.0-4.8) Monocytes # (Auto) 0.8 x10^3/uL (0.0-1.1) Eosinophils # (Auto) 0.0 x10^3/uL (0.0-0.7) Basophils # (Auto) 0.0 x10^3/uL (0.0-0.2) Sodium Level 138 mmol/L (136-145) Potassium Level 3.6 mmol/L (3.5-5.1) Chloride Level 105 mmol/L (98-107) Carbon Dioxide Level 20 mmol/L (21-32) Anion Gap 13 (6-14) Blood Urea Nitrogen 23 mg/dL (7-20) Creatinine 1.0 mg/dL (0.6-1.0) Estimated GFR (Cockcroft-Gault) 55.1 BUN/Creatinine Ratio 23 (6-20) Glucose Level 119 mg/dL (70-99) Calcium Level 8.2 mg/dL (8.5-10.1) Ferritin 130 ng/mL (8-252) Total Bilirubin 0.4 mg/dL (0.2-1.0) Aspartate Amino Transf (AST/SGOT) 56 U/L (15-37) Alanine Aminotransferase (ALT/SGPT) 38 U/L (14-59) Alkaline Phosphatase 362 U/L (46-116) C-Reactive Protein, Quantitative 308.1 mg/L (0-3.3) Total Protein 6.3 g/dL (6.4-8.2) Albumin 1.9 g/dL (3.4-5.0) Albumin/Globulin Ratio 0.4 (1.0-1.7) Thyroid Stimulating Hormone (TSH) 0.111 uIU/mL (0.358-3.74) Laboratory Tests Test 05/19/20 00:31 05/19/20 01:10 05/19/20 03:45 05/19/20 08:08 Glucose (Fingerstick) 69 mg/dL (70-99) 130 mg/dL (70-99) 134 mg/dL (70-99) White Blood Count 14.6 x10^3/uL (4.0-11.0) Red Blood Count 3.31 x10^6/uL (3.50-5.40) Hemoglobin 9.1 g/dL (12.0-15.5) Hematocrit 27.2 % (36.0-47.0) Mean Corpuscular Volume 82 fL (79-100) Mean Corpuscular Hemoglobin 27 pg (25-35) Mean Corpuscular Hemoglobin Concent 33 g/dL (31-37) Red Cell Distribution Width 16.0 % (11.5-14.5) Platelet Count 266 x10^3/uL (140-400) Neutrophils (%) (Auto) 88 % (31-73) Lymphocytes (%) (Auto) 7 % (24-48) Monocytes (%) (Auto) 5 % (0-9) Eosinophils (%) (Auto) 0 % (0-3) Basophils (%) (Auto) 0 % (0-3) Neutrophils # (Auto) 12.8 x10^3/uL (1.8-7.7) Lymphocytes # (Auto) 1.0 x10^3/uL (1.0-4.8) Monocytes # (Auto) 0.8 x10^3/uL (0.0-1.1) Eosinophils # (Auto) 0.0 x10^3/uL (0.0-0.7) Basophils # (Auto) 0.0 x10^3/uL (0.0-0.2) Sodium Level 138 mmol/L (136-145) Potassium Level 3.6 mmol/L (3.5-5.1) Chloride Level 105 mmol/L (98-107) Carbon Dioxide Level 20 mmol/L (21-32) Anion Gap 13 (6-14) Blood Urea Nitrogen 23 mg/dL (7-20) Creatinine 1.0 mg/dL (0.6-1.0) Estimated GFR (Cockcroft-Gault) 55.1 BUN/Creatinine Ratio 23 (6-20) Glucose Level 119 mg/dL (70-99) Calcium Level 8.2 mg/dL (8.5-10.1) Ferritin 130 ng/mL (8-252) Total Bilirubin 0.4 mg/dL (0.2-1.0) Aspartate Amino Transf (AST/SGOT) 56 U/L (15-37) Alanine Aminotransferase (ALT/SGPT) 38 U/L (14-59) Alkaline Phosphatase 362 U/L (46-116) C-Reactive Protein, Quantitative 308.1 mg/L (0-3.3) Total Protein 6.3 g/dL (6.4-8.2) Albumin 1.9 g/dL (3.4-5.0) Albumin/Globulin Ratio 0.4 (1.0-1.7) Thyroid Stimulating Hormone (TSH) 0.111 uIU/mL (0.358-3.74) Microbiology 05/18/20 Blood Culture - Preliminary, Resulted NO GROWTH AFTER 1 DAY Medications Current Medications Sodium Chloride 1,000 ml @ 1,000 mls/hr 1X ONCE IV Last administered on 05/18/20at 09:29; Start 05/18/20 at 09:15; Stop 05/18/20 at 10:14; Status DC Ceftriaxone Sodium (Rocephin) 1 gm 1X ONCE IVP Last administered on 05/18/20at 09:28; Start 05/18/20 at 09:15; Stop 05/18/20 at 09:16; Status DC Ondansetron HCl (Zofran) 4 mg PRN Q8HRS PRN IV NAUSEA/VOMITING; Start 05/18/20 at 10:15; Stop 05/18/20 at 16:24; Status DC Acetaminophen (Tylenol) 650 mg PRN Q4HRS PRN PO FEVER > 100.3'F; Start 05/18/20 at 10:15; Stop 05/18/20 at 16:24; Status DC Ceftriaxone Sodium (Rocephin) 1 gm Q24H IVP Last administered on 05/19/20at 08:01; Start 05/19/20 at 09:00 Sodium Chloride (Normal Saline Flush) 3 ml QSHIFT PRN IV AFTER MEDS AND BLOOD DRAWS; Start 05/18/20 at 16:30 Sodium Chloride 1,000 ml @ 85 mls/hr [id number] IV Last administered on 05/19/20at 05:42; Start 05/18/20 at 16:20 Ondansetron HCl (Zofran) 4 mg PRN Q4HRS PRN IV NAUSEA/VOMITING; Start 05/18/20 at 16:30 Acetaminophen (Tylenol) 650 mg PRN Q4HRS PRN PO TEMP OVER 100.4F OR MILD PAIN Last administered on 05/19/20at 08:36; Start 05/18/20 at 16:30 Acetaminophen (Tylenol Supp) 650 mg PRN Q4HRS PRN [place] TEMP OVER 100.4F OR MILD PAIN; Start 05/18/20 at 16:30 Sodium Monofluorophosphate (Fleet Adult) 133 ml PRN DAILY PRN [place] CONSTIPATION; Start 05/18/20 at 16:30 Docusate Sodium (Colace) 100 mg PRN BID PRN PO HARD STOOLS; Start 05/18/20 at 16:30 Albuterol Sulfate (Ventolin Neb Soln) 2.5 mg PRN Q4HRS PRN NEB SHORTNESS OF BREATH; Start 05/18/20 at 16:30 Guaifenesin (Robitussin) 200 mg PRN Q4HRS PRN PO COUGH; Start 05/18/20 at 16:30 Enoxaparin Sodium (Lovenox 40mg Syringe) 40 mg Q24H SQ Last administered on 05/18/20at 18:34; Start 05/18/20 at 17:00 Aspirin (Ecotrin) 81 mg DAILY PO ; Start 05/19/20 at 09:00 Metoprolol Tartrate (Lopressor) 50 mg BID PO ; Start 05/19/20 at 09:00 Diclofenac Sodium (Voltaren) 75 mg BID PO ; Start 05/19/20 at 10:00 Hydralazine HCl (Apresoline) 100 mg BID PO ; Start 05/19/20 at 09:00 Lisinopril (Prinivil) 20 mg DAILY PO ; Start 05/19/20 at 10:00 Pantoprazole Sodium (Protonix) 40 mg DAILYAC PO ; Start 05/19/20 at 10:00 Atorvastatin Calcium (Lipitor) 40 mg QHS PO ; Start 05/19/20 at 21:00 Hydrochlorothiazide (Hydrodiuril) 25 mg DAILY PO ; Start 05/19/20 at 10:00 Active Scripts Active Reported Actos (Pioglitazone Hcl) 45 Mg Tablet 1 Tab PO DAILY 30 Days Diclofenac Sodium 75 Mg Tablet.dr 1 Tab PO BID Klor-Con 10 (Potassium Chloride) 10 Meq Tablet.er 1 Tab PO DAILY 30 Days Metformin Hcl 1,000 Mg Tablet 1,000 Mg PO BIDWMEALS Omeprazole 20 Mg Capsule.dr 1 Cap PO DAILY Lisinopril-Hctz 20-25 Mg Tab (Lisinopril/Hydrochlorothiazide) 1 Each Tablet 1 Tab PO DAILY Aspirin Ec (Aspirin) 81 Mg Tablet.dr 1 Tab PO DAILY Hydralazine Hcl 100 Mg Tablet 1 Tab PO BID Metoprolol Tartrate 50 Mg Tablet 1 Tab PO BID Rosuvastatin Calcium 10 Mg Tablet 10 Mg PO DAILY Vitals/I & O Vital Sign - Last 24 Hours 05/18/20 05/18/20 05/18/20 05/18/20 11:00 12:00 13:00 14:00 Pulse 58 62 62 64 Resp 18 18 18 18 Pulse Ox 95 98 98 95 05/18/20 05/18/20 05/18/20 05/18/20 15:00 16:16 16:45 16:45 Temp 98.3 98.8 98.3 98.8 Pulse 72 90 Resp 18 19 B/P (MAP) 135/69 (91) Pulse Ox 95 91 O2 Delivery Room Air Nasal Cannula O2 Flow Rate 2.0 05/18/20 05/18/20 05/18/20 05/18/20 19:00 20:00 22:55 23:00 Temp 101.5 102.7 101.5 102.7 Pulse 101 107 Resp 22 18 B/P (MAP) 136/63 (87) 142/62 (88) Pulse Ox 91 94 90 O2 Delivery Room Air O2 Flow Rate 2.0 05/19/20 05/19/20 03:00 07:00 Temp 99.7 102.4 99.7 102.4 Pulse 83 108 Resp 16 20 B/P (MAP) 128/58 (81) 136/58 (84) Pulse Ox 91 90 O2 Delivery Nasal Cannula O2 Flow Rate 2.0 Intake and Output 05/18/20 05/18/20 05/19/20 15:00 23:00 07:00 Intake Total 0 ml Balance 0 ml Justicifation of Admission Dx: Justifications for Admission: Justification of Admission Dx: Yes Altered Mental Status: Altered Mental Status DARREL CASTRO MD May 19, 2020 10:06
[2020-05-19] MEDS: PANTOPRAZOLE 40 MG TABLET.DR. PO SCH (10:23)
[2020-05-19] MEDS: ASPIRIN ENTERIC COATED 81 MG TABLET.DR. PO SCH (10:24)
[2020-05-19] MEDS: DICLOFENAC SODIUM 25 MG TABLET.DR PO SCH ×2 (10:24→21:26)
[2020-05-19] MEDS: LISINOPRIL 20 MG TABLET PO SCH (10:25)
[2020-05-19] MEDS: hydroCHLOROthiazide 25 MG TABLET PO SCH (10:25)
[2020-05-19] MEDS: METOPROLOL TART IMMED RELEASE 50 MG TABLET. PO SCH ×2 (10:26→21:27)
[2020-05-19 11:00] VITALS: BP 149/66
--- NOTE | 2020-05-19 11:42 | CONS ---
DATE OF CONSULTATION: PULMONARY CONSULTATION ATTENDING PHYSICIAN: Brent Merlos MD REASON FOR CONSULTATION: Pneumonia, hypoxia. HISTORY OF PRESENT ILLNESS: The patient is an 70-year-old female who does not speak Bulgarian. She was brought into the hospital with altered mental status. The patient has been seen by Neurology. Her blood sugar was 17. She also had been having fevers with T-max of 102.7 on admission. Chest x-ray revealed bilateral multifocal infiltrates. She is under COVID isolation. Due to language barrier, I am unable to obtain much history from the patient. PAST MEDICAL HISTORY: Significant for type 2 diabetes, hypertension. PAST SURGICAL HISTORY: None. ALLERGIES: None. SOCIAL HISTORY: Nonsmoker. MEDICATIONS: Reviewed as listed in the MRAD including antibiotics. REVIEW OF SYSTEMS: Unable to obtain from the patient. PHYSICAL EXAMINATION: GENERAL: She is in no obvious respiratory distress. Pulse ox 90% on 2 liters. VITAL SIGNS: T-max of 102.7. NECK: Supple. LUNGS: Clear. CARDIOVASCULAR: With a regular rate. ABDOMEN: Soft, obese. EXTREMITIES: With no pitting edema. LABORATORY DATA: Reviewed. White cell count 14.6, hemoglobin 9.1, and platelets are 266. BUN 23, creatinine 1.0. IMPRESSION: 1. Acute hypoxic respiratory failure secondary to highly suspected COVID-19 pneumonia. 2. Abnormal chest x-ray with bilateral infiltrates suggesting COVID pneumonia. 3. Fever 102, likely related to COVID pneumonia. Need to rule out other sources of infection as well. 4. Hypoglycemic encephalopathy, resolved. 5. Severe protein-calorie malnutrition. 6. Mild azotemia. RECOMMENDATIONS: 1. Discussed with RN. We will continue present oxygen at 2 liters, keep saturation 92 and above. 2. COVID-19 isolation. 3. If COVID positive, then we will consider plasma/remdesivir. 4. Monitor clinical parameters of systemic inflammation if COVID positive. 5. Follow Neurology recommendations. 6. Continue empiric antibiotics. 7. Discussed with RN. We will follow along with you. DAMION WELLS MD DR: CORDELL/enedina JOB#: [id number] / [id number]
[2020-05-19] MEDS ORDERED: DEXTROSE 50% 25 GM / 50ML DISP.SYRIN. IV PRN (14:15)
[2020-05-19 15:00] VITALS: BP 118/56
--- NOTE | 2020-05-19 15:09 | PDOC ---
PROGRESS NOTES Chief Complaint Chief Complaint ASSESSMENT Acute hypoxic respiratory failure secondary to Suspected COVID-19pneumonia. Abnormal chest x-ray FEVER Hypoglycemic encephalopathy Severe protein-calorie malnutrition. DM2 PLAN follow on covid unit await covid test follow blood cultures monitor inflammatory markers apprec neuro and pulm supplemental 02 Continue empiric antibiotics. check a1c, start SSI as sugars now elevated. holding home diabetic meds dvt ppx History of Present Illness History of Present Illness doing well. wants to eat. remains febrile however. Vitals Vitals Vital Signs Date Time Temp Pulse Resp B/P (MAP) Pulse Ox O2 Delivery O2 Flow Rate FiO2 05/19/20 11:00 100.1 94 22 149/66 (93) 92 Nasal Cannula 4.0 100.1 Physical Exam General: Cooperative, No acute distress Abdomen: Soft Labs LABS Laboratory Tests Test 05/19/20 00:31 05/19/20 01:10 05/19/20 03:45 05/19/20 08:08 Glucose (Fingerstick) 69 mg/dL (70-99) 130 mg/dL (70-99) 134 mg/dL (70-99) White Blood Count 14.6 x10^3/uL (4.0-11.0) Red Blood Count 3.31 x10^6/uL (3.50-5.40) Hemoglobin 9.1 g/dL (12.0-15.5) Hematocrit 27.2 % (36.0-47.0) Mean Corpuscular Volume 82 fL (79-100) Mean Corpuscular Hemoglobin 27 pg (25-35) Mean Corpuscular Hemoglobin Concent 33 g/dL (31-37) Red Cell Distribution Width 16.0 % (11.5-14.5) Platelet Count 266 x10^3/uL (140-400) Neutrophils (%) (Auto) 88 % (31-73) Lymphocytes (%) (Auto) 7 % (24-48) Monocytes (%) (Auto) 5 % (0-9) Eosinophils (%) (Auto) 0 % (0-3) Basophils (%) (Auto) 0 % (0-3) Neutrophils # (Auto) 12.8 x10^3/uL (1.8-7.7) Lymphocytes # (Auto) 1.0 x10^3/uL (1.0-4.8) Monocytes # (Auto) 0.8 x10^3/uL (0.0-1.1) Eosinophils # (Auto) 0.0 x10^3/uL (0.0-0.7) Basophils # (Auto) 0.0 x10^3/uL (0.0-0.2) Sodium Level 138 mmol/L (136-145) Potassium Level 3.6 mmol/L (3.5-5.1) Chloride Level 105 mmol/L (98-107) Carbon Dioxide Level 20 mmol/L (21-32) Anion Gap 13 (6-14) Blood Urea Nitrogen 23 mg/dL (7-20) Creatinine 1.0 mg/dL (0.6-1.0) Estimated GFR (Cockcroft-Gault) 55.1 BUN/Creatinine Ratio 23 (6-20) Glucose Level 119 mg/dL (70-99) Calcium Level 8.2 mg/dL (8.5-10.1) Ferritin 130 ng/mL (8-252) Total Bilirubin 0.4 mg/dL (0.2-1.0) Aspartate Amino Transf (AST/SGOT) 56 U/L (15-37) Alanine Aminotransferase (ALT/SGPT) 38 U/L (14-59) Alkaline Phosphatase 362 U/L (46-116) C-Reactive Protein, Quantitative 308.1 mg/L (0-3.3) Total Protein 6.3 g/dL (6.4-8.2) Albumin 1.9 g/dL (3.4-5.0) Albumin/Globulin Ratio 0.4 (1.0-1.7) Thyroid Stimulating Hormone (TSH) 0.111 uIU/mL (0.358-3.74) Test 05/19/20 11:50 Glucose (Fingerstick) 288 mg/dL (70-99) Assessment and Plan Assessmemt and Plan Problems Medical Problems: (1) Altered mental status Status: Acute (2) Hypoglycemia Status: Acute (3) Hypothermia Status: Acute Comment Review of Relevant I have reviewed the following items kavya (where applicable) has been applied. Labs Laboratory Tests Test 05/18/20 08:36 05/18/20 08:40 05/18/20 08:50 05/18/20 10:00 Glucose (Fingerstick) 115 mg/dL (70-99) White Blood Count 10.4 x10^3/uL (4.0-11.0) Red Blood Count 3.40 x10^6/uL (3.50-5.40) Hemoglobin 9.5 g/dL (12.0-15.5) Hematocrit 28.6 % (36.0-47.0) Mean Corpuscular Volume 84 fL (79-100) Mean Corpuscular Hemoglobin 28 pg (25-35) Mean Corpuscular Hemoglobin Concent 33 g/dL (31-37) Red Cell Distribution Width 16.3 % (11.5-14.5) Platelet Count 230 x10^3/uL (140-400) Neutrophils (%) (Auto) 85 % (31-73) Lymphocytes (%) (Auto) 7 % (24-48) Monocytes (%) (Auto) 7 % (0-9) Eosinophils (%) (Auto) 1 % (0-3) Basophils (%) (Auto) 0 % (0-3) Neutrophils # (Auto) 8.8 x10^3/uL (1.8-7.7) Lymphocytes # (Auto) 0.8 x10^3/uL (1.0-4.8) Monocytes # (Auto) 0.7 x10^3/uL (0.0-1.1) Eosinophils # (Auto) 0.1 x10^3/uL (0.0-0.7) Basophils # (Auto) 0.0 x10^3/uL (0.0-0.2) Segmented Neutrophils % 85 % (35-66) Band Neutrophils % 3 % (0-9) Lymphocytes % 7 % (24-48) Monocytes % 4 % (0-10) Eosinophils % 1 % (0-5) Nucleated Red Blood Cells 1 Dohle Bodies Few Platelet Estimate Adequate (ADEQUATE) Polychromasia Slight Prothrombin Time 14.7 SEC (11.7-14.0) Prothromb Time International Ratio 1.2 (0.8-1.1) Activated Partial Thromboplast Time 37 SEC (24-38) Sodium Level 138 mmol/L (136-145) Potassium Level 3.5 mmol/L (3.5-5.1) Chloride Level 104 mmol/L (98-107) Carbon Dioxide Level 22 mmol/L (21-32) Anion Gap 12 (6-14) Blood Urea Nitrogen 40 mg/dL (7-20) Creatinine 1.2 mg/dL (0.6-1.0) Estimated GFR (Cockcroft-Gault) 44.7 BUN/Creatinine Ratio 33 (6-20) Glucose Level 130 mg/dL (70-99) Lactic Acid Level 0.9 mmol/L (0.4-2.0) Calcium Level 8.6 mg/dL (8.5-10.1) Magnesium Level 2.0 mg/dL (1.8-2.4) Total Bilirubin 0.4 mg/dL (0.2-1.0) Aspartate Amino Transf (AST/SGOT) 93 U/L (15-37) Alanine Aminotransferase (ALT/SGPT) 54 U/L (14-59) Alkaline Phosphatase 383 U/L (46-116) Ammonia < 10 mcmol/L (11-34) Creatine Kinase 45 U/L (26-192) Troponin I Quantitative < 0.017 ng/mL (0.000-0.055) Total Protein 6.9 g/dL (6.4-8.2) Albumin 2.3 g/dL (3.4-5.0) Albumin/Globulin Ratio 0.5 (1.0-1.7) Thyroid Stimulating Hormone (TSH) 0.188 uIU/mL (0.358-3.74) Ethyl Alcohol Level < 10 mg/dL (0-10) Urine Collection Type U cath Urine Color Yellow Urine Clarity Clear Urine pH 5.0 (<5.0-8.0) Urine Specific [place] 1.020 (1.000-1.030) Urine Protein 30 mg/dL (NEG-TRACE) Urine Glucose (UA) Negative mg/dL (NEG) Urine Ketones (Stick) Negative mg/dL (NEG) Urine Blood Negative (NEG) Urine Nitrite Negative (NEG) Urine Bilirubin Negative (NEG) Urine Urobilinogen Dipstick 0.2 mg/dL (0.2 mg/dL) Urine Leukocyte Esterase Small (NEG) Urine RBC 0 /HPF (0-2) Urine WBC 1-4 /HPF (0-4) Urine Squamous Epithelial Cells Few /LPF Urine Amorphous Sediment Present /HPF Urine Bacteria 0 /HPF (0-FEW) Urine Mucus Mod /LPF Urine Opiates Screen Neg (NEG) Urine Methadone Screen Neg (NEG) Urine Barbiturates Neg (NEG) Urine Phencyclidine Screen Neg (NEG) Urine Amphetamine/Methamphetamine Neg (NEG) Urine Benzodiazepines Screen Neg (NEG) Urine Cocaine Screen Neg (NEG) Urine Cannabinoids Screen Neg (NEG) Urine Ethyl Alcohol Neg (NEG) Coronavirus (COVID-19)(PCR) Not detected (NOT DETECT.) Test 05/19/20 00:31 05/19/20 01:10 05/19/20 03:45 05/19/20 08:08 Glucose (Fingerstick) 69 mg/dL (70-99) 130 mg/dL (70-99) 134 mg/dL (70-99) White Blood Count 14.6 x10^3/uL (4.0-11.0) Red Blood Count 3.31 x10^6/uL (3.50-5.40) Hemoglobin 9.1 g/dL (12.0-15.5) Hematocrit 27.2 % (36.0-47.0) Mean Corpuscular Volume 82 fL (79-100) Mean Corpuscular Hemoglobin 27 pg (25-35) Mean Corpuscular Hemoglobin Concent 33 g/dL (31-37) Red Cell Distribution Width 16.0 % (11.5-14.5) Platelet Count 266 x10^3/uL (140-400) Neutrophils (%) (Auto) 88 % (31-73) Lymphocytes (%) (Auto) 7 % (24-48) Monocytes (%) (Auto) 5 % (0-9) Eosinophils (%) (Auto) 0 % (0-3) Basophils (%) (Auto) 0 % (0-3) Neutrophils # (Auto) 12.8 x10^3/uL (1.8-7.7) Lymphocytes # (Auto) 1.0 x10^3/uL (1.0-4.8) Monocytes # (Auto) 0.8 x10^3/uL (0.0-1.1) Eosinophils # (Auto) 0.0 x10^3/uL (0.0-0.7) Basophils # (Auto) 0.0 x10^3/uL (0.0-0.2) Sodium Level 138 mmol/L (136-145) Potassium Level 3.6 mmol/L (3.5-5.1) Chloride Level 105 mmol/L (98-107) Carbon Dioxide Level 20 mmol/L (21-32) Anion Gap 13 (6-14) Blood Urea Nitrogen 23 mg/dL (7-20) Creatinine 1.0 mg/dL (0.6-1.0) Estimated GFR (Cockcroft-Gault) 55.1 BUN/Creatinine Ratio 23 (6-20) Glucose Level 119 mg/dL (70-99) Calcium Level 8.2 mg/dL (8.5-10.1) Ferritin 130 ng/mL (8-252) Total Bilirubin 0.4 mg/dL (0.2-1.0) Aspartate Amino Transf (AST/SGOT) 56 U/L (15-37) Alanine Aminotransferase (ALT/SGPT) 38 U/L (14-59) Alkaline Phosphatase 362 U/L (46-116) C-Reactive Protein, Quantitative 308.1 mg/L (0-3.3) Total Protein 6.3 g/dL (6.4-8.2) Albumin 1.9 g/dL (3.4-5.0) Albumin/Globulin Ratio 0.4 (1.0-1.7) Thyroid Stimulating Hormone (TSH) 0.111 uIU/mL (0.358-3.74) Test 05/19/20 11:50 Glucose (Fingerstick) 288 mg/dL (70-99) Laboratory Tests Test 05/19/20 00:31 05/19/20 01:10 05/19/20 03:45 05/19/20 08:08 Glucose (Fingerstick) 69 mg/dL (70-99) 130 mg/dL (70-99) 134 mg/dL (70-99) White Blood Count 14.6 x10^3/uL (4.0-11.0) Red Blood Count 3.31 x10^6/uL (3.50-5.40) Hemoglobin 9.1 g/dL (12.0-15.5) Hematocrit 27.2 % (36.0-47.0) Mean Corpuscular Volume 82 fL (79-100) Mean Corpuscular Hemoglobin 27 pg (25-35) Mean Corpuscular Hemoglobin Concent 33 g/dL (31-37) Red Cell Distribution Width 16.0 % (11.5-14.5) Platelet Count 266 x10^3/uL (140-400) Neutrophils (%) (Auto) 88 % (31-73) Lymphocytes (%) (Auto) 7 % (24-48) Monocytes (%) (Auto) 5 % (0-9) Eosinophils (%) (Auto) 0 % (0-3) Basophils (%) (Auto) 0 % (0-3) Neutrophils # (Auto) 12.8 x10^3/uL (1.8-7.7) Lymphocytes # (Auto) 1.0 x10^3/uL (1.0-4.8) Monocytes # (Auto) 0.8 x10^3/uL (0.0-1.1) Eosinophils # (Auto) 0.0 x10^3/uL (0.0-0.7) Basophils # (Auto) 0.0 x10^3/uL (0.0-0.2) Sodium Level 138 mmol/L (136-145) Potassium Level 3.6 mmol/L (3.5-5.1) Chloride Level 105 mmol/L (98-107) Carbon Dioxide Level 20 mmol/L (21-32) Anion Gap 13 (6-14) Blood Urea Nitrogen 23 mg/dL (7-20) Creatinine 1.0 mg/dL (0.6-1.0) Estimated GFR (Cockcroft-Gault) 55.1 BUN/Creatinine Ratio 23 (6-20) Glucose Level 119 mg/dL (70-99) Calcium Level 8.2 mg/dL (8.5-10.1) Ferritin 130 ng/mL (8-252) Total Bilirubin 0.4 mg/dL (0.2-1.0) Aspartate Amino Transf (AST/SGOT) 56 U/L (15-37) Alanine Aminotransferase (ALT/SGPT) 38 U/L (14-59) Alkaline Phosphatase 362 U/L (46-116) C-Reactive Protein, Quantitative 308.1 mg/L (0-3.3) Total Protein 6.3 g/dL (6.4-8.2) Albumin 1.9 g/dL (3.4-5.0) Albumin/Globulin Ratio 0.4 (1.0-1.7) Thyroid Stimulating Hormone (TSH) 0.111 uIU/mL (0.358-3.74) Test 05/19/20 11:50 Glucose (Fingerstick) 288 mg/dL (70-99) Microbiology 05/18/20 Urine Culture - Final, Complete 05/18/20 Blood Culture - Preliminary, Resulted NO GROWTH AFTER 1 DAY Medications Current Medications Sodium Chloride 1,000 ml @ 1,000 mls/hr 1X ONCE IV Last administered on 05/18/20at 09:29; Start 05/18/20 at 09:15; Stop 05/18/20 at 10:14; Status DC Ceftriaxone Sodium (Rocephin) 1 gm 1X ONCE IVP Last administered on 05/18/20at 09:28; Start 05/18/20 at 09:15; Stop 05/18/20 at 09:16; Status DC Ondansetron HCl (Zofran) 4 mg PRN Q8HRS PRN IV NAUSEA/VOMITING; Start 05/18/20 at 10:15; Stop 05/18/20 at 16:24; Status DC Acetaminophen (Tylenol) 650 mg PRN Q4HRS PRN PO FEVER > 100.3'F; Start 05/18/20 at 10:15; Stop 05/18/20 at 16:24; Status DC Ceftriaxone Sodium (Rocephin) 1 gm Q24H IVP Last administered on 05/19/20at 08:01; Start 05/19/20 at 09:00 Sodium Chloride (Normal Saline Flush) 3 ml QSHIFT PRN IV AFTER MEDS AND BLOOD DRAWS; Start 05/18/20 at 16:30 Sodium Chloride 1,000 ml @ 85 mls/hr [id number] IV Last administered on 05/19/20at 14:57; Start 05/18/20 at 16:20 Ondansetron HCl (Zofran) 4 mg PRN Q4HRS PRN IV NAUSEA/VOMITING; Start 05/18/20 at 16:30 Acetaminophen (Tylenol) 650 mg PRN Q4HRS PRN PO TEMP OVER 100.4F OR MILD PAIN Last administered on 05/19/20at 08:36; Start 05/18/20 at 16:30 Acetaminophen (Tylenol Supp) 650 mg PRN Q4HRS PRN RI TEMP OVER 100.4F OR MILD PAIN; Start 05/18/20 at 16:30 Sodium Monofluorophosphate (Fleet Adult) 133 ml PRN DAILY PRN RI CONSTIPATION; Start 05/18/20 at 16:30 Docusate Sodium (Colace) 100 mg PRN BID PRN PO HARD STOOLS; Start 05/18/20 at 16:30 Albuterol Sulfate (Ventolin Neb Soln) 2.5 mg PRN Q4HRS PRN NEB SHORTNESS OF BREATH; Start 05/18/20 at 16:30 Guaifenesin (Robitussin) 200 mg PRN Q4HRS PRN PO COUGH; Start 05/18/20 at 16:30 Enoxaparin Sodium (Lovenox 40mg Syringe) 40 mg Q24H SQ Last administered on 05/18/20at 18:34; Start 05/18/20 at 17:00 Aspirin (Ecotrin) 81 mg DAILY PO Last administered on 05/19/20at 10:24; Start 05/19/20 at 09:00 Metoprolol Tartrate (Lopressor) 50 mg BID PO Last administered on 05/19/20at 10:26; Start 05/19/20 at 09:00 Diclofenac Sodium (Voltaren) 75 mg BID PO Last administered on 05/19/20at 10:24; Start 05/19/20 at 10:00 Hydralazine HCl (Apresoline) 100 mg BID PO Last administered on 05/19/20at 10:25; Start 05/19/20 at 09:00 Lisinopril (Prinivil) 20 mg DAILY PO Last administered on 05/19/20at 10:25; Start 05/19/20 at 10:00 Pantoprazole Sodium (Protonix) 40 mg DAILYAC PO Last administered on 05/19/20at 10:23; Start 05/19/20 at 10:00 Atorvastatin Calcium (Lipitor) 40 mg QHS PO ; Start 05/19/20 at 21:00 Hydrochlorothiazide (Hydrodiuril) 25 mg DAILY PO Last administered on 05/19/20at 10:25; Start 05/19/20 at 10:00 Lactobacillus Rhamnosus (Culturelle) 1 cap BID PO ; Start 05/19/20 at 21:00 Insulin Human Lispro (HumaLOG) 0-7 UNITS TIDWMEALS SQ ; Start 05/19/20 at 17:00 Dextrose (Dextrose 50%-Water Syringe) 12.5 gm PRN Q15MIN PRN IV SEE COMMENTS; Start 05/19/20 at 14:15 Active Scripts Active Reported Actos (Pioglitazone Hcl) 45 Mg Tablet 1 Tab PO DAILY 30 Days Diclofenac Sodium 75 Mg Tablet.dr 1 Tab PO BID Klor-Con 10 (Potassium Chloride) 10 Meq Tablet.er 1 Tab PO DAILY 30 Days Metformin Hcl 1,000 Mg Tablet 1,000 Mg PO BIDWMEALS Omeprazole 20 Mg Capsule. 1 Cap PO DAILY Lisinopril-Hctz 20-25 Mg Tab (Lisinopril/Hydrochlorothiazide) 1 Each Tablet 1 T ab PO DAILY Aspirin Ec (Aspirin) 81 Mg Tablet.dr 1 Tab PO DAILY Hydralazine Hcl 100 Mg Tablet 1 Tab PO BID Metoprolol Tartrate 50 Mg Tablet 1 Tab PO BID Rosuvastatin Calcium 10 Mg Tablet 10 Mg PO DAILY Vitals/I & O Vital Sign - Last 24 Hours 05/18/20 05/18/20 05/18/20 05/18/20 16:16 16:45 16:45 19:00 Temp 98.3 98.8 101.5 98.3 98.8 101.5 Pulse 90 101 Resp 19 22 B/P (MAP) 135/69 (91) 136/63 (87) Pulse Ox 91 91 O2 Delivery Room Air Nasal Cannula O2 Flow Rate 2.0 05/18/20 05/18/20 05/18/20 05/19/20 20:00 22:55 23:00 03:00 Temp 102.7 99.7 102.7 99.7 Pulse 107 83 Resp 18 16 B/P (MAP) 142/62 (88) 128/58 (81) Pulse Ox 94 90 91 O2 Delivery Room Air O2 Flow Rate 2.0 05/19/20 05/19/20 05/19/20 05/19/20 07:00 08:00 10:25 10:25 Temp 102.4 102.4 Pulse 108 108 108 Resp 20 B/P (MAP) 136/58 (84) 136/58 136/58 Pulse Ox 90 O2 Delivery Nasal Cannula Nasal Cannula O2 Flow Rate 2.0 4.0 05/19/20 05/19/20 10:26 11:00 Temp 100.1 100.1 Pulse 108 94 Resp 22 B/P (MAP) 136/58 149/66 (93) Pulse Ox 92 O2 Delivery Nasal Cannula O2 Flow Rate 4.0 Intake and Output 05/18/20 05/18/20 05/19/20 15:00 23:00 07:00 Intake Total 0 ml Balance 0 ml SUYAPA MCCORMICK MD May 19, 2020 15:09
--- NOTE | 2020-05-19 15:38 | NUR ---
Notified Dr. Gao of negative COVID 19 result, this nurse was instructed to reswab patient due to high suspicion for COVID 19.
[2020-05-19] MEDS: ENOXAPARIN 40 MG/0.4 ML SYRINGE. SQ SCH (16:06)
[2020-05-19] MEDS: INSULIN LISPRO 300 UNITS/3 ML VIAL. SQ SCH (17:18)
[2020-05-19 19:00] VITALS: BP 115/56
[2020-05-19] MEDS: ATORVASTATIN CALCIUM 40 MG TABLET. PO SCH (21:27)
[2020-05-19] MEDS: LACTOBACILLUS RHAMNOSUS GG 1 CAPSULE. PO SCH (21:27)
[2020-05-19 23:00] VITALS: BP 129/62
[2020-05-20 03:00] VITALS: BP 116/56
[2020-05-20 05:25] LABS: BASO # 0.1 x10^3/uL (0.0-0.2); BASO % 0 % (0-3); EOS # 0.1 x10^3/uL (0.0-0.7); EOS % 1 % (0-3); HEMOGLOBIN 8.7 g/dL (12.0-15.5); LYMPH # 1.1 x10^3/uL (1.0-4.8); LYMPH % 8 % (24-48); MEAN CORPUSCULAR HEMOGLOBIN 27 pg (25-35); MEAN CORPUSCULAR HGB CONC 33 g/dL (31-37); MEAN CORPUSCULAR VOLUME 82 fL (79-100); MONO % 7 % (0-9); NEUT # 11.8 x10^3/uL (1.8-7.7); NEUT % 84 % (31-73); PLATELET COUNT 251 x10^3/uL (140-400); RED BLOOD COUNT 3.16 x10^6/uL (3.50-5.40); RED CELL DISTRIBUTION WIDTH 16.3 % (11.5-14.5); WHITE BLOOD COUNT 14.2 x10^3/uL (4.0-11.0)
[2020-05-20 05:48] LABS: ALBUMIN 1.8 g/dL (3.4-5.0); CALCIUM 7.5 mg/dL (8.5-10.1); DIRECT BILIRUBIN 0.2 mg/dL (0.0-0.2); GFR 55.1; POTASSIUM 3.5 mmol/L (3.5-5.1); TOTAL BILIRUBIN 0.3 mg/dL (0.2-1.0); TOTAL PROTEIN 6.2 g/dL (6.4-8.2)
[2020-05-20 07:30] VITALS: BP 149/68
[2020-05-20 08:30] LABS: FREE T4 1.54 ng/dL (0.76-1.46)
[2020-05-20] MEDS: ACETAMINOPHEN 325 MG TABLET. PO PRN ×2 (08:37→23:02)
[2020-05-20] MEDS: ASPIRIN ENTERIC COATED 81 MG TABLET.DR. PO SCH (08:37)
[2020-05-20] MEDS: LISINOPRIL 20 MG TABLET PO SCH (08:37)
[2020-05-20] MEDS: LACTOBACILLUS RHAMNOSUS GG 1 CAPSULE. PO SCH ×2 (08:38→20:14)
[2020-05-20] MEDS: hydroCHLOROthiazide 25 MG TABLET PO SCH (08:38)
[2020-05-20] MEDS: DICLOFENAC SODIUM 25 MG TABLET.DR PO SCH ×2 (08:38→20:14)
[2020-05-20] MEDS: METOPROLOL TART IMMED RELEASE 50 MG TABLET. PO SCH ×2 (08:38→20:14)
[2020-05-20] MEDS: cefTRIAXone IV Push 1 GM VIAL. IVP SCH (08:39)
[2020-05-20] MEDS: PANTOPRAZOLE 40 MG TABLET.DR. PO SCH (08:41)
--- NOTE | 2020-05-20 09:40 | NUR ---
Nursing: Head Baker telephone used for morning assessment and medication pass. Patient [place] speaking. #[phone]
--- NOTE | 2020-05-20 09:42 | PDOC ---
PROGRESS NOTES Chief Complaint Chief Complaint ASSESSMENT Acute hypoxic respiratory failure secondary to Suspected COVID-19pneumonia, inital test negative Abnormal chest x-ray FEVER, resolved Hyperthyroidism likely Graves Dz Hypoglycemic encephalopathy, resolved Severe protein-calorie malnutrition. DM2, a1c on admission 7% HTN PLAN follow on covid unit. consider repeat test given abnormal cxr follow blood cultures monitor inflammatory markers supplemental 02 Continue empiric antibiotics. continue home BP meds T4 elevated, TSH low. check TSI. HR stable. already on BB therapy. start methimazole. refer to outpatient endocrine at discharge SSI. holding home diabetic meds. a1c only 7% dvt ppx apprec neuro and pulm History of Present Illness History of Present Illness feels better today. no fever today so far Vitals Vitals Vital Signs Date Time Temp Pulse Resp B/P (MAP) Pulse Ox O2 Delivery O2 Flow Rate FiO2 05/20/20 08:39 70 05/20/20 03:00 97.6 16 116/56 (76) 91 Nasal Cannula 4.0 97.6 Physical Exam General: Cooperative, No acute distress Abdomen: Soft Labs LABS Laboratory Tests Test 05/19/20 11:50 05/19/20 15:20 05/19/20 16:11 05/19/20 20:44 Glucose (Fingerstick) 288 mg/dL (70-99) 304 mg/dL (70-99) 237 mg/dL (70-99) Coronavirus (COVID-19)(PCR) Not detected (NOT DETECT.) Test 05/20/20 04:55 05/20/20 08:51 White Blood Count 14.2 x10^3/uL (4.0-11.0) Red Blood Count 3.16 x10^6/uL (3.50-5.40) Hemoglobin 8.7 g/dL (12.0-15.5) Hematocrit 26.0 % (36.0-47.0) Mean Corpuscular Volume 82 fL (79-100) Mean Corpuscular Hemoglobin 27 pg (25-35) Mean Corpuscular Hemoglobin Concent 33 g/dL (31-37) Red Cell Distribution Width 16.3 % (11.5-14.5) Platelet Count 251 x10^3/uL (140-400) Neutrophils (%) (Auto) 84 % (31-73) Lymphocytes (%) (Auto) 8 % (24-48) Monocytes (%) (Auto) 7 % (0-9) Eosinophils (%) (Auto) 1 % (0-3) Basophils (%) (Auto) 0 % (0-3) Neutrophils # (Auto) 11.8 x10^3/uL (1.8-7.7) Lymphocytes # (Auto) 1.1 x10^3/uL (1.0-4.8) Monocytes # (Auto) 1.0 x10^3/uL (0.0-1.1) Eosinophils # (Auto) 0.1 x10^3/uL (0.0-0.7) Basophils # (Auto) 0.1 x10^3/uL (0.0-0.2) Sodium Level 141 mmol/L (136-145) Potassium Level 3.5 mmol/L (3.5-5.1) Chloride Level 107 mmol/L (98-107) Carbon Dioxide Level 21 mmol/L (21-32) Anion Gap 13 (6-14) Blood Urea Nitrogen 31 mg/dL (7-20) Creatinine 1.0 mg/dL (0.6-1.0) Estimated GFR (Cockcroft-Gault) 55.1 Glucose Level 237 mg/dL (70-99) Calcium Level 7.5 mg/dL (8.5-10.1) Total Bilirubin 0.3 mg/dL (0.2-1.0) Direct Bilirubin 0.2 mg/dL (0.0-0.2) Aspartate Amino Transf (AST/SGOT) 28 U/L (15-37) Alanine Aminotransferase (ALT/SGPT) 32 U/L (14-59) Alkaline Phosphatase 306 U/L (46-116) Total Protein 6.2 g/dL (6.4-8.2) Albumin 1.8 g/dL (3.4-5.0) Free Thyroxine 1.54 ng/dL (0.76-1.46) Free Triiodothyronine (T3) pg/mL < 0.50 pg/mL (2.18-3.98) Glucose (Fingerstick) 190 mg/dL (70-99) Assessment and Plan Assessmemt and Plan Problems Medical Problems: (1) Altered mental status Status: Acute (2) Hypoglycemia Status: Acute (3) Hypothermia Status: Acute Comment Review of Relevant I have reviewed the following items kavya (where applicable) has been applied. Labs Laboratory Tests Test 05/18/20 10:00 05/19/20 00:31 05/19/20 01:10 05/19/20 03:45 Coronavirus (COVID-19)(PCR) Not detected (NOT DETECT.) Glucose (Fingerstick) 69 mg/dL (70-99) 130 mg/dL (70-99) White Blood Count 14.6 x10^3/uL (4.0-11.0) Red Blood Count 3.31 x10^6/uL (3.50-5.40) Hemoglobin 9.1 g/dL (12.0-15.5) Hematocrit 27.2 % (36.0-47.0) Mean Corpuscular Volume 82 fL (79-100) Mean Corpuscular Hemoglobin 27 pg (25-35) Mean Corpuscular Hemoglobin Concent 33 g/dL (31-37) Red Cell Distribution Width 16.0 % (11.5-14.5) Platelet Count 266 x10^3/uL (140-400) Neutrophils (%) (Auto) 88 % (31-73) Lymphocytes (%) (Auto) 7 % (24-48) Monocytes (%) (Auto) 5 % (0-9) Eosinophils (%) (Auto) 0 % (0-3) Basophils (%) (Auto) 0 % (0-3) Neutrophils # (Auto) 12.8 x10^3/uL (1.8-7.7) Lymphocytes # (Auto) 1.0 x10^3/uL (1.0-4.8) Monocytes # (Auto) 0.8 x10^3/uL (0.0-1.1) Eosinophils # (Auto) 0.0 x10^3/uL (0.0-0.7) Basophils # (Auto) 0.0 x10^3/uL (0.0-0.2) Sodium Level 138 mmol/L (136-145) Potassium Level 3.6 mmol/L (3.5-5.1) Chloride Level 105 mmol/L (98-107) Carbon Dioxide Level 20 mmol/L (21-32) Anion Gap 13 (6-14) Blood Urea Nitrogen 23 mg/dL (7-20) Creatinine 1.0 mg/dL (0.6-1.0) Estimated GFR (Cockcroft-Gault) 55.1 BUN/Creatinine Ratio 23 (6-20) Glucose Level 119 mg/dL (70-99) Hemoglobin A1c 7.0 % (4.8-5.6) Calcium Level 8.2 mg/dL (8.5-10.1) Ferritin 130 ng/mL (8-252) Total Bilirubin 0.4 mg/dL (0.2-1.0) Aspartate Amino Transf (AST/SGOT) 56 U/L (15-37) Alanine Aminotransferase (ALT/SGPT) 38 U/L (14-59) Alkaline Phosphatase 362 U/L (46-116) C-Reactive Protein, Quantitative 308.1 mg/L (0-3.3) Total Protein 6.3 g/dL (6.4-8.2) Albumin 1.9 g/dL (3.4-5.0) Albumin/Globulin Ratio 0.4 (1.0-1.7) Thyroid Stimulating Hormone (TSH) 0.111 uIU/mL (0.358-3.74) Test 05/19/20 08:08 05/19/20 11:50 05/19/20 15:20 05/19/20 16:11 Glucose (Fingerstick) 134 mg/dL (70-99) 288 mg/dL (70-99) 304 mg/dL (70-99) Coronavirus (COVID-19)(PCR) Not detected (NOT DETECT.) Test 05/19/20 20:44 05/20/20 04:55 05/20/20 08:51 Glucose (Fingerstick) 237 mg/dL (70-99) 190 mg/dL (70-99) White Blood Count 14.2 x10^3/uL (4.0-11.0) Red Blood Count 3.16 x10^6/uL (3.50-5.40) Hemoglobin 8.7 g/dL (12.0-15.5) Hematocrit 26.0 % (36.0-47.0) Mean Corpuscular Volume 82 fL (79-100) Mean Corpuscular Hemoglobin 27 pg (25-35) Mean Corpuscular Hemoglobin Concent 33 g/dL (31-37) Red Cell Distribution Width 16.3 % (11.5-14.5) Platelet Count 251 x10^3/uL (140-400) Neutrophils (%) (Auto) 84 % (31-73) Lymphocytes (%) (Auto) 8 % (24-48) Monocytes (%) (Auto) 7 % (0-9) Eosinophils (%) (Auto) 1 % (0-3) Basophils (%) (Auto) 0 % (0-3) Neutrophils # (Auto) 11.8 x10^3/uL (1.8-7.7) Lymphocytes # (Auto) 1.1 x10^3/uL (1.0-4.8) Monocytes # (Auto) 1.0 x10^3/uL (0.0-1.1) Eosinophils # (Auto) 0.1 x10^3/uL (0.0-0.7) Basophils # (Auto) 0.1 x10^3/uL (0.0-0.2) Sodium Level 141 mmol/L (136-145) Potassium Level 3.5 mmol/L (3.5-5.1) Chloride Level 107 mmol/L (98-107) Carbon Dioxide Level 21 mmol/L (21-32) Anion Gap 13 (6-14) Blood Urea Nitrogen 31 mg/dL (7-20) Creatinine 1.0 mg/dL (0.6-1.0) Estimated GFR (Cockcroft-Gault) 55.1 Glucose Level 237 mg/dL (70-99) Calcium Level 7.5 mg/dL (8.5-10.1) Total Bilirubin 0.3 mg/dL (0.2-1.0) Direct Bilirubin 0.2 mg/dL (0.0-0.2) Aspartate Amino Transf (AST/SGOT) 28 U/L (15-37) Alanine Aminotransferase (ALT/SGPT) 32 U/L (14-59) Alkaline Phosphatase 306 U/L (46-116) Total Protein 6.2 g/dL (6.4-8.2) Albumin 1.8 g/dL (3.4-5.0) Free Thyroxine 1.54 ng/dL (0.76-1.46) Free Triiodothyronine (T3) pg/mL < 0.50 pg/mL (2.18-3.98) Laboratory Tests Test 05/19/20 11:50 05/19/20 15:20 05/19/20 16:11 05/19/20 20:44 Glucose (Fingerstick) 288 mg/dL (70-99) 304 mg/dL (70-99) 237 mg/dL (70-99) Coronavirus (COVID-19)(PCR) Not detected (NOT DETECT.) Test 05/20/20 04:55 05/20/20 08:51 White Blood Count 14.2 x10^3/uL (4.0-11.0) Red Blood Count 3.16 x10^6/uL (3.50-5.40) Hemoglobin 8.7 g/dL (12.0-15.5) Hematocrit 26.0 % (36.0-47.0) Mean Corpuscular Volume 82 fL (79-100) Mean Corpuscular Hemoglobin 27 pg (25-35) Mean Corpuscular Hemoglobin Concent 33 g/dL (31-37) Red Cell Distribution Width 16.3 % (11.5-14.5) Platelet Count 251 x10^3/uL (140-400) Neutrophils (%) (Auto) 84 % (31-73) Lymphocytes (%) (Auto) 8 % (24-48) Monocytes (%) (Auto) 7 % (0-9) Eosinophils (%) (Auto) 1 % (0-3) Basophils (%) (Auto) 0 % (0-3) Neutrophils # (Auto) 11.8 x10^3/uL (1.8-7.7) Lymphocytes # (Auto) 1.1 x10^3/uL (1.0-4.8) Monocytes # (Auto) 1.0 x10^3/uL (0.0-1.1) Eosinophils # (Auto) 0.1 x10^3/uL (0.0-0.7) Basophils # (Auto) 0.1 x10^3/uL (0.0-0.2) Sodium Level 141 mmol/L (136-145) Potassium Level 3.5 mmol/L (3.5-5.1) Chloride Level 107 mmol/L (98-107) Carbon Dioxide Level 21 mmol/L (21-32) Anion Gap 13 (6-14) Blood Urea Nitrogen 31 mg/dL (7-20) Creatinine 1.0 mg/dL (0.6-1.0) Estimated GFR (Cockcroft-Gault) 55.1 Glucose Level 237 mg/dL (70-99) Calcium Level 7.5 mg/dL (8.5-10.1) Total Bilirubin 0.3 mg/dL (0.2-1.0) Direct Bilirubin 0.2 mg/dL (0.0-0.2) Aspartate Amino Transf (AST/SGOT) 28 U/L (15-37) Alanine Aminotransferase (ALT/SGPT) 32 U/L (14-59) Alkaline Phosphatase 306 U/L (46-116) Total Protein 6.2 g/dL (6.4-8.2) Albumin 1.8 g/dL (3.4-5.0) Free Thyroxine 1.54 ng/dL (0.76-1.46) Free Triiodothyronine (T3) pg/mL < 0.50 pg/mL (2.18-3.98) Glucose (Fingerstick) 190 mg/dL (70-99) Microbiology 05/18/20 Urine Culture - Final, Complete 05/18/20 Blood Culture - Preliminary, Resulted NO GROWTH AFTER 2 DAYS Medications Current Medications Sodium Chloride 1,000 ml @ 1,000 mls/hr 1X ONCE IV Last administered on 05/18/20at 09:29; Start 05/18/20 at 09:15; Stop 05/18/20 at 10:14; Status DC Ceftriaxone Sodium (Rocephin) 1 gm 1X ONCE IVP Last administered on 05/18/20at 09:28; Start 05/18/20 at 09:15; Stop 05/18/20 at 09:16; Status DC Ondansetron HCl (Zofran) 4 mg PRN Q8HRS PRN IV NAUSEA/VOMITING; Start 05/18/20 at 10:15; Stop 05/18/20 at 16:24; Status DC Acetaminophen (Tylenol) 650 mg PRN Q4HRS PRN PO FEVER > 100.3'F; Start 05/18/20 at 10:15; Stop 05/18/20 at 16:24; Status DC Ceftriaxone Sodium (Rocephin) 1 gm Q24H IVP Last administered on 05/20/20at 08:39; Start 05/19/20 at 09:00 Sodium Chloride (Normal Saline Flush) 3 ml QSHIFT PRN IV AFTER MEDS AND BLOOD DRAWS; Start 05/18/20 at 16:30 Sodium Chloride 1,000 ml @ 85 mls/hr [id number] IV Last administered on 05/19/20at 21:28; Start 05/18/20 at 16:20 Ondansetron HCl (Zofran) 4 mg PRN Q4HRS PRN IV NAUSEA/VOMITING; Start 05/18/20 at 16:30 Acetaminophen (Tylenol) 650 mg PRN Q4HRS PRN PO TEMP OVER 100.4F OR MILD PAIN Last administered on 05/20/20at 08:37; Start 05/18/20 at 16:30 Acetaminophen (Tylenol Supp) 650 mg PRN Q4HRS PRN CA TEMP OVER 100.4F OR MILD PAIN; Start 05/18/20 at 16:30 Sodium Monofluorophosphate (Fleet Adult) 133 ml PRN DAILY PRN CA CONSTIPATION; Start 05/18/20 at 16:30 Docusate Sodium (Colace) 100 mg PRN BID PRN PO HARD STOOLS; Start 05/18/20 at 16:30 Albuterol Sulfate (Ventolin Neb Soln) 2.5 mg PRN Q4HRS PRN NEB SHORTNESS OF BREATH; Start 05/18/20 at 16:30 Guaifenesin (Robitussin) 200 mg PRN Q4HRS PRN PO COUGH; Start 05/18/20 at 16:30 Enoxaparin Sodium (Lovenox 40mg Syringe) 40 mg Q24H SQ Last administered on 05/19/20at 16:06; Start 05/18/20 at 17:00 Aspirin (Ecotrin) 81 mg DAILY PO Last administered on 05/20/20at 08:37; Start 05/19/20 at 09:00 Metoprolol Tartrate (Lopressor) 50 mg BID PO Last administered on 05/20/20at 08:38; Start 05/19/20 at 09:00 Diclofenac Sodium (Voltaren) 75 mg BID PO Last administered on 05/20/20at 08:38; Start 05/19/20 at 10:00 Hydralazine HCl (Apresoline) 100 mg BID PO Last administered on 05/20/20at 08:39; Start 05/19/20 at 09:00 Lisinopril (Prinivil) 20 mg DAILY PO Last administered on 05/20/20at 08:37; Start 05/19/20 at 10:00 Pantoprazole Sodium (Protonix) 40 mg DAILYAC PO Last administered on 05/20/20at 08:41; Start 05/19/20 at 10:00 Atorvastatin Calcium (Lipitor) 40 mg QHS PO Last administered on 05/19/20at 21:27; Start 05/19/20 at 21:00 Hydrochlorothiazide (Hydrodiuril) 25 mg DAILY PO Last administered on 05/20/20at 08:38; Start 05/19/20 at 10:00 Lactobacillus Rhamnosus (Culturelle) 1 cap BID PO Last administered on 05/20/20at 08:38; Start 05/19/20 at 21:00 Insulin Human Lispro (HumaLOG) 0-7 UNITS TIDWMEALS SQ Last administered on 05/19/20at 17:18; Start 05/19/20 at 17:00 Dextrose (Dextrose 50%-Water Syringe) 12.5 gm PRN Q15MIN PRN IV SEE COMMENTS; Start 05/19/20 at 14:15 Active Scripts Active Reported Actos (Pioglitazone Hcl) 45 Mg Tablet 1 Tab PO DAILY 30 Days Diclofenac Sodium 75 Mg Tablet.dr 1 Tab PO BID Klor-Con 10 (Potassium Chloride) 10 Meq Tablet.er 1 Tab PO DAILY 30 Days Metformin Hcl 1,000 Mg Tablet 1,000 Mg PO BIDWMEALS Omeprazole 20 Mg Capsule.dr 1 Cap PO DAILY Lisinopril-Hctz 20-25 Mg Tab (Lisinopril/Hydrochlorothiazide) 1 Each Tablet 1 Tab PO DAILY Aspirin Ec (Aspirin) 81 Mg Tablet.dr 1 Tab PO DAILY Hydralazine Hcl 100 Mg Tablet 1 Tab PO BID Metoprolol Tartrate 50 Mg Tablet 1 Tab PO BID Rosuvastatin Calcium 10 Mg Tablet 10 Mg PO DAILY Vitals/I & O Vital Sign - Last 24 Hours 05/19/20 05/19/20 05/19/20 05/19/20 10:25 10:25 10:26 11:00 Temp 100.1 100.1 Pulse 108 108 108 94 Resp 22 B/P (MAP) 136/58 136/58 136/58 149/66 (93) Pulse Ox 92 O2 Delivery Nasal Cannula O2 Flow Rate 4.0 05/19/20 05/19/20 05/19/20 05/19/20 15:00 19:00 20:00 21:26 Temp 98.6 98.0 98.6 98.0 Pulse 71 68 68 Resp 20 20 B/P (MAP) 118/56 (76) 115/56 (75) 115/56 Pulse Ox 92 93 O2 Delivery Nasal Cannula Nasal Cannula Nasal Cannula O2 Flow Rate 4.0 4.0 4.0 05/19/20 05/19/20 05/20/20 05/20/20 21:27 23:00 03:00 08:37 Temp 98.3 97.6 98.3 97.6 Pulse 68 67 52 70 Resp 20 16 B/P (MAP) 115/56 129/62 (84) 116/56 (76) Pulse Ox 91 91 O2 Delivery Nasal Cannula Nasal Cannula O2 Flow Rate 4.0 4.0 05/20/20 05/20/20 08:38 08:39 Pulse 70 70 Intake and Output 05/19/20 05/19/20 05/20/20 15:00 23:00 07:00 Intake Total 300 ml 290 ml 0 ml Balance 300 ml 290 ml 0 ml SUYAPA MCCORMICK MD May 20, 2020 09:42
[2020-05-20] MEDS: INSULIN LISPRO 300 UNITS/3 ML VIAL. SQ SCH ×3 (09:50→17:36)
[2020-05-20] MEDS: methIMAzole 10 MG TABLET PO SCH ×2 (10:28→20:15)
[2020-05-20 10:37] VITALS: BP 148/66
--- NOTE | 2020-05-20 10:56 | PDOC ---
PULMONARY PROGRESS NOTES Subjective Patient feels better not more short of Vitals Vital Signs Date Time Temp Pulse Resp B/P (MAP) Pulse Ox O2 Delivery O2 Flow Rate FiO2 05/20/20 10:37 97.6 73 20 148/66 (93) 91 Nasal Cannula 4.0 97.6 ROS: No Nausea, No Chest Pain, No Abdominal Pain, No Increase Cough Lungs: Clear Cardiovascular: S1 Abdomen: Soft Neuro Exam: Alert Extremities: No Edema Skin: Warm Labs Laboratory Tests Test 05/19/20 00:31 05/19/20 01:10 05/19/20 03:45 05/19/20 08:08 Glucose (Fingerstick) 69 mg/dL (70-99) 130 mg/dL (70-99) 134 mg/dL (70-99) White Blood Count 14.6 x10^3/uL (4.0-11.0) Red Blood Count 3.31 x10^6/uL (3.50-5.40) Hemoglobin 9.1 g/dL (12.0-15.5) Hematocrit 27.2 % (36.0-47.0) Mean Corpuscular Volume 82 fL (79-100) Mean Corpuscular Hemoglobin 27 pg (25-35) Mean Corpuscular Hemoglobin Concent 33 g/dL (31-37) Red Cell Distribution Width 16.0 % (11.5-14.5) Platelet Count 266 x10^3/uL (140-400) Neutrophils (%) (Auto) 88 % (31-73) Lymphocytes (%) (Auto) 7 % (24-48) Monocytes (%) (Auto) 5 % (0-9) Eosinophils (%) (Auto) 0 % (0-3) Basophils (%) (Auto) 0 % (0-3) Neutrophils # (Auto) 12.8 x10^3/uL (1.8-7.7) Lymphocytes # (Auto) 1.0 x10^3/uL (1.0-4.8) Monocytes # (Auto) 0.8 x10^3/uL (0.0-1.1) Eosinophils # (Auto) 0.0 x10^3/uL (0.0-0.7) Basophils # (Auto) 0.0 x10^3/uL (0.0-0.2) Sodium Level 138 mmol/L (136-145) Potassium Level 3.6 mmol/L (3.5-5.1) Chloride Level 105 mmol/L (98-107) Carbon Dioxide Level 20 mmol/L (21-32) Anion Gap 13 (6-14) Blood Urea Nitrogen 23 mg/dL (7-20) Creatinine 1.0 mg/dL (0.6-1.0) Estimated GFR (Cockcroft-Gault) 55.1 BUN/Creatinine Ratio 23 (6-20) Glucose Level 119 mg/dL (70-99) Hemoglobin A1c 7.0 % (4.8-5.6) Calcium Level 8.2 mg/dL (8.5-10.1) Ferritin 130 ng/mL (8-252) Total Bilirubin 0.4 mg/dL (0.2-1.0) Aspartate Amino Transf (AST/SGOT) 56 U/L (15-37) Alanine Aminotransferase (ALT/SGPT) 38 U/L (14-59) Alkaline Phosphatase 362 U/L (46-116) C-Reactive Protein, Quantitative 308.1 mg/L (0-3.3) Total Protein 6.3 g/dL (6.4-8.2) Albumin 1.9 g/dL (3.4-5.0) Albumin/Globulin Ratio 0.4 (1.0-1.7) Thyroid Stimulating Hormone (TSH) 0.111 uIU/mL (0.358-3.74) Test 05/19/20 11:50 05/19/20 15:20 05/19/20 16:11 05/19/20 20:44 Glucose (Fingerstick) 288 mg/dL (70-99) 304 mg/dL (70-99) 237 mg/dL (70-99) Coronavirus (COVID-19)(PCR) Not detected (NOT DETECT.) Test 05/20/20 04:55 05/20/20 08:51 White Blood Count 14.2 x10^3/uL (4.0-11.0) Red Blood Count 3.16 x10^6/uL (3.50-5.40) Hemoglobin 8.7 g/dL (12.0-15.5) Hematocrit 26.0 % (36.0-47.0) Mean Corpuscular Volume 82 fL (79-100) Mean Corpuscular Hemoglobin 27 pg (25-35) Mean Corpuscular Hemoglobin Concent 33 g/dL (31-37) Red Cell Distribution Width 16.3 % (11.5-14.5) Platelet Count 251 x10^3/uL (140-400) Neutrophils (%) (Auto) 84 % (31-73) Lymphocytes (%) (Auto) 8 % (24-48) Monocytes (%) (Auto) 7 % (0-9) Eosinophils (%) (Auto) 1 % (0-3) Basophils (%) (Auto) 0 % (0-3) Neutrophils # (Auto) 11.8 x10^3/uL (1.8-7.7) Lymphocytes # (Auto) 1.1 x10^3/uL (1.0-4.8) Monocytes # (Auto) 1.0 x10^3/uL (0.0-1.1) Eosinophils # (Auto) 0.1 x10^3/uL (0.0-0.7) Basophils # (Auto) 0.1 x10^3/uL (0.0-0.2) Sodium Level 141 mmol/L (136-145) Potassium Level 3.5 mmol/L (3.5-5.1) Chloride Level 107 mmol/L (98-107) Carbon Dioxide Level 21 mmol/L (21-32) Anion Gap 13 (6-14) Blood Urea Nitrogen 31 mg/dL (7-20) Creatinine 1.0 mg/dL (0.6-1.0) Estimated GFR (Cockcroft-Gault) 55.1 Glucose Level 237 mg/dL (70-99) Calcium Level 7.5 mg/dL (8.5-10.1) Total Bilirubin 0.3 mg/dL (0.2-1.0) Direct Bilirubin 0.2 mg/dL (0.0-0.2) Aspartate Amino Transf (AST/SGOT) 28 U/L (15-37) Alanine Aminotransferase (ALT/SGPT) 32 U/L (14-59) Alkaline Phosphatase 306 U/L (46-116) Total Protein 6.2 g/dL (6.4-8.2) Albumin 1.8 g/dL (3.4-5.0) Free Thyroxine 1.54 ng/dL (0.76-1.46) Free Triiodothyronine (T3) pg/mL < 0.50 pg/mL (2.18-3.98) Glucose (Fingerstick) 190 mg/dL (70-99) Laboratory Tests Test 05/19/20 11:50 05/19/20 15:20 05/19/20 16:11 05/19/20 20:44 Glucose (Fingerstick) 288 mg/dL (70-99) 304 mg/dL (70-99) 237 mg/dL (70-99) Coronavirus (COVID-19)(PCR) Not detected (NOT DETECT.) Test 05/20/20 04:55 05/20/20 08:51 White Blood Count 14.2 x10^3/uL (4.0-11.0) Red Blood Count 3.16 x10^6/uL (3.50-5.40) Hemoglobin 8.7 g/dL (12.0-15.5) Hematocrit 26.0 % (36.0-47.0) Mean Corpuscular Volume 82 fL (79-100) Mean Corpuscular Hemoglobin 27 pg (25-35) Mean Corpuscular Hemoglobin Concent 33 g/dL (31-37) Red Cell Distribution Width 16.3 % (11.5-14.5) Platelet Count 251 x10^3/uL (140-400) Neutrophils (%) (Auto) 84 % (31-73) Lymphocytes (%) (Auto) 8 % (24-48) Monocytes (%) (Auto) 7 % (0-9) Eosinophils (%) (Auto) 1 % (0-3) Basophils (%) (Auto) 0 % (0-3) Neutrophils # (Auto) 11.8 x10^3/uL (1.8-7.7) Lymphocytes # (Auto) 1.1 x10^3/uL (1.0-4.8) Monocytes # (Auto) 1.0 x10^3/uL (0.0-1.1) Eosinophils # (Auto) 0.1 x10^3/uL (0.0-0.7) Basophils # (Auto) 0.1 x10^3/uL (0.0-0.2) Sodium Level 141 mmol/L (136-145) Potassium Level 3.5 mmol/L (3.5-5.1) Chloride Level 107 mmol/L (98-107) Carbon Dioxide Level 21 mmol/L (21-32) Anion Gap 13 (6-14) Blood Urea Nitrogen 31 mg/dL (7-20) Creatinine 1.0 mg/dL (0.6-1.0) Estimated GFR (Cockcroft-Gault) 55.1 Glucose Level 237 mg/dL (70-99) Calcium Level 7.5 mg/dL (8.5-10.1) Total Bilirubin 0.3 mg/dL (0.2-1.0) Direct Bilirubin 0.2 mg/dL (0.0-0.2) Aspartate Amino Transf (AST/SGOT) 28 U/L (15-37) Alanine Aminotransferase (ALT/SGPT) 32 U/L (14-59) Alkaline Phosphatase 306 U/L (46-116) Total Protein 6.2 g/dL (6.4-8.2) Albumin 1.8 g/dL (3.4-5.0) Free Thyroxine 1.54 ng/dL (0.76-1.46) Free Triiodothyronine (T3) pg/mL < 0.50 pg/mL (2.18-3.98) Glucose (Fingerstick) 190 mg/dL (70-99) Medications Active Scripts Medications Dose Route/Sig Max Daily Dose Days Date Category Actos (Pioglitazone Hcl) 45 Mg Tablet 1 Tab PO DAILY 30 05/18/20 Reported Diclofenac Sodium 75 Mg Tablet.dr 1 Tab PO BID 05/18/20 Reported Klor-Con 10 (Potassium Chloride) 10 Meq Tablet.er 1 Tab PO DAILY 30 05/18/20 Reported Metformin Hcl 1,000 Mg Tablet 1,000 Mg PO BIDWMEALS 05/18/20 Reported Omeprazole 20 Mg Capsule.dr 1 Cap PO DAILY 05/18/20 Reported Lisinopril-Hctz 20-25 Mg Tab (Lisinopril/Hydrochlorothiazide) 1 Each Tablet 1 Tab PO DAILY 05/18/20 Reported Aspirin Ec (Aspirin) 81 Mg Tablet.dr 1 Tab PO DAILY 05/18/20 Reported Hydralazine Hcl 100 Mg Tablet 1 Tab PO BID 05/18/20 Reported Metoprolol Tartrate 50 Mg Tablet 1 Tab PO BID 05/18/20 Reported Rosuvastatin Calcium 10 Mg Tablet 10 Mg PO DAILY 05/18/20 Reported Impression . IMPRESSION: 1. Acute hypoxic respiratory failure 2. Abnormal chest x-ray with bilateral infiltrates 3. Fever 102, 4. Hypoglycemic encephalopathy, resolved. 5. Severe protein-calorie malnutrition. 6. Mild azotemia. 7. SARS-CoV-2 negative x2 Plan . SARS-CoV-2 negative x2 transfer out of isolation Empiric antibiotics Oxygen supplementation KING WHITTINGTON MD May 20, 2020 10:56
--- NOTE | 2020-05-20 10:58 | NUR ---
Nursing: Covid result negative. Spoke with Dr. Gonzales and Dr. Borden. Ok to transfer patient to telemetry floor.
[2020-05-20 15:00] VITALS: BP 163/74
[2020-05-20] MEDS: IV NORMAL SALINE 1000ML BAG 1,000 ML IV SCH (15:19)
[2020-05-20] MEDS: ENOXAPARIN 40 MG/0.4 ML SYRINGE. SQ SCH (15:20)
--- NOTE | 2020-05-20 17:20 | NUR ---
SW following. Coordinated care with RN and reviewed chart. Pt from home alone with 4l 02. Pt does not have 02 at home. Pt has had two COVID tests and both are negative. SW reviewed PT/OT notes and the plan is for pt to discharge home independent. Pt is on IV Rocephin. SW to continue following.
[2020-05-20 19:35] VITALS: BP 149/61
[2020-05-20] MEDS: ATORVASTATIN CALCIUM 40 MG TABLET. PO SCH (20:14)
[2020-05-20 23:15] VITALS: BP 132/62
[2020-05-21] VITALS (8 sets, daily range): BP systolic 118–158; BP diastolic 51–73
[2020-05-21] MEDS: IV NORMAL SALINE 1000ML BAG 1,000 ML IV SCH ×2 (03:48→15:55)
[2020-05-21] MEDS: INSULIN GLARGINE SYRINGE. SQ SCH (09:00)
[2020-05-21] MEDS: ASPIRIN ENTERIC COATED 81 MG TABLET.DR. PO SCH (09:14)
[2020-05-21] MEDS: DICLOFENAC SODIUM 25 MG TABLET.DR PO SCH ×2 (09:15→21:12)
[2020-05-21] MEDS: PANTOPRAZOLE 40 MG TABLET.DR. PO SCH (09:15)
[2020-05-21] MEDS: methIMAzole 10 MG TABLET PO SCH ×2 (09:15→21:10)
[2020-05-21] MEDS: LACTOBACILLUS RHAMNOSUS GG 1 CAPSULE. PO SCH ×2 (09:15→21:12)
[2020-05-21] MEDS: hydroCHLOROthiazide 25 MG TABLET PO SCH (09:15)
[2020-05-21] MEDS: METOPROLOL TART IMMED RELEASE 50 MG TABLET. PO SCH (09:16)
[2020-05-21] MEDS: LISINOPRIL 20 MG TABLET PO SCH (09:16)
--- NOTE | 2020-05-21 09:30 | RAD ---
EXAM: Chest, single view. HISTORY: Pneumonia. COMPARISON: 05/18/2020 FINDINGS: A frontal view of the chest obtained. There has been slight interval increase in partially consolidated multifocal infiltrate and small left greater than right pleural effusions. There is a stable cardiac silhouette. There is no pneumothorax. IMPRESSION: Slight interval increase in partially consolidated multifocal infiltrate and small left greater than right pleural effusions. Electronically signed by: Winifred Chen MD (05/21/2020 9:27 AM) [id number]
--- NOTE | 2020-05-21 09:39 | PDOC ---
PULMONARY PROGRESS NOTES Subjective Patient feels better not more short of Vitals Vital Signs Date Time Temp Pulse Resp B/P (MAP) Pulse Ox O2 Delivery O2 Flow Rate FiO2 05/21/20 09:16 73 139/54 05/21/20 07:46 97.9 18 93 Nasal Cannula 4.0 97.9 ROS: No Nausea, No Chest Pain, No Abdominal Pain, No Increase Cough Lungs: Clear Cardiovascular: S1 Abdomen: Soft Neuro Exam: Alert Extremities: No Edema Skin: Warm Labs Laboratory Tests Test 05/19/20 11:50 05/19/20 15:20 05/19/20 16:11 05/19/20 20:44 Glucose (Fingerstick) 288 mg/dL (70-99) 304 mg/dL (70-99) 237 mg/dL (70-99) Coronavirus (COVID-19)(PCR) Not detected (NOT DETECT.) Test 05/20/20 04:55 05/20/20 08:51 05/20/20 12:17 05/20/20 17:14 White Blood Count 14.2 x10^3/uL (4.0-11.0) Red Blood Count 3.16 x10^6/uL (3.50-5.40) Hemoglobin 8.7 g/dL (12.0-15.5) Hematocrit 26.0 % (36.0-47.0) Mean Corpuscular Volume 82 fL (79-100) Mean Corpuscular Hemoglobin 27 pg (25-35) Mean Corpuscular Hemoglobin Concent 33 g/dL (31-37) Red Cell Distribution Width 16.3 % (11.5-14.5) Platelet Count 251 x10^3/uL (140-400) Neutrophils (%) (Auto) 84 % (31-73) Lymphocytes (%) (Auto) 8 % (24-48) Monocytes (%) (Auto) 7 % (0-9) Eosinophils (%) (Auto) 1 % (0-3) Basophils (%) (Auto) 0 % (0-3) Neutrophils # (Auto) 11.8 x10^3/uL (1.8-7.7) Lymphocytes # (Auto) 1.1 x10^3/uL (1.0-4.8) Monocytes # (Auto) 1.0 x10^3/uL (0.0-1.1) Eosinophils # (Auto) 0.1 x10^3/uL (0.0-0.7) Basophils # (Auto) 0.1 x10^3/uL (0.0-0.2) Sodium Level 141 mmol/L (136-145) Potassium Level 3.5 mmol/L (3.5-5.1) Chloride Level 107 mmol/L (98-107) Carbon Dioxide Level 21 mmol/L (21-32) Anion Gap 13 (6-14) Blood Urea Nitrogen 31 mg/dL (7-20) Creatinine 1.0 mg/dL (0.6-1.0) Estimated GFR (Cockcroft-Gault) 55.1 Glucose Level 237 mg/dL (70-99) Calcium Level 7.5 mg/dL (8.5-10.1) Total Bilirubin 0.3 mg/dL (0.2-1.0) Direct Bilirubin 0.2 mg/dL (0.0-0.2) Aspartate Amino Transf (AST/SGOT) 28 U/L (15-37) Alanine Aminotransferase (ALT/SGPT) 32 U/L (14-59) Alkaline Phosphatase 306 U/L (46-116) Total Protein 6.2 g/dL (6.4-8.2) Albumin 1.8 g/dL (3.4-5.0) Free Thyroxine 1.54 ng/dL (0.76-1.46) Free Triiodothyronine (T3) pg/mL < 0.50 pg/mL (2.18-3.98) Glucose (Fingerstick) 190 mg/dL (70-99) 272 mg/dL (70-99) 264 mg/dL (70-99) Test 05/20/20 20:45 05/21/20 07:22 Glucose (Fingerstick) 316 mg/dL (70-99) 260 mg/dL (70-99) Laboratory Tests Test 05/20/20 12:17 05/20/20 17:14 05/20/20 20:45 05/21/20 07:22 Glucose (Fingerstick) 272 mg/dL (70-99) 264 mg/dL (70-99) 316 mg/dL (70-99) 260 mg/dL (70-99) Medications Active Scripts Medications Dose Route/Sig Max Daily Dose Days Date Category Actos (Pioglitazone Hcl) 45 Mg Tablet 1 Tab PO DAILY 30 05/18/20 Reported Diclofenac Sodium 75 Mg Tablet.dr 1 Tab PO BID 05/18/20 Reported Klor-Con 10 (Potassium Chloride) 10 Meq Tablet.er 1 Tab PO DAILY 30 05/18/20 Reported Metformin Hcl 1,000 Mg Tablet 1,000 Mg PO BIDWMEALS 05/18/20 Reported Omeprazole 20 Mg Capsule.dr 1 Cap PO DAILY 05/18/20 Reported Lisinopril-Hctz 20-25 Mg Tab (Lisinopril/Hydrochlorothiazide) 1 Each Tablet 1 Tab PO DAILY 05/18/20 Reported Aspirin Ec (Aspirin) 81 Mg Tablet.dr 1 Tab PO DAILY 05/18/20 Reported Hydralazine Hcl 100 Mg Tablet 1 Tab PO BID 05/18/20 Reported Metoprolol Tartrate 50 Mg Tablet 1 Tab PO BID 05/18/20 Reported Rosuvastatin Calcium 10 Mg Tablet 10 Mg PO DAILY 05/18/20 Reported Impression . IMPRESSION: 1. Acute hypoxic respiratory failure 2. Abnormal chest x-ray with bilateral infiltrates 3. Fever 102, 4. Hypoglycemic encephalopathy, resolved. 5. Severe protein-calorie malnutrition. 6. Mild azotemia. 7. SARS-CoV-2 negative x2 Plan . Spoke with family will continue current support SARS-CoV-2 negative x2 Empiric antibiotics Oxygen supplementation KING WHITTINGTON MD May 21, 2020 09:39
[2020-05-21] MEDS: INSULIN LISPRO 300 UNITS/3 ML VIAL. SQ SCH ×3 (09:44→17:00)
--- NOTE | 2020-05-21 10:14 | PDOC ---
PROGRESS NOTES Assessment Problems Medical Problems: (1) Altered mental status Status: Acute (2) Hypoglycemia Status: Acute (3) Hypothermia Status: Acute Encephalopathy due to hypoglycemia and hypothermia, no evidence of any acute stroke, the CT finding is not clinically relevant and does not merit any additional attention especially with her lack of symptoms and normal examination. Moreover, this would be expected in someone who has had hypertension and diabetes for several years. Ruled out for COVID Plan Aspirin and statin Treat hypoglycemia and hypothermia as has already been done. No additional neurological studies needed. Okay for discharge Follow-up with neurology as needed Neurology signs off Subjective No complaints, wants to go home Objective Vital Signs Date Time Temp Pulse Resp B/P (MAP) Pulse Ox O2 Delivery O2 Flow Rate FiO2 05/21/20 09:16 73 139/54 05/21/20 08:30 Nasal Cannula 4.0 05/21/20 07:46 97.9 18 93 97.9 Intake and Output 05/21/20 07:00 Intake Total 450 ml Balance 450 ml Intake Oral 450 ml # Voids 5 # Bowel Movements 1 PHYSICAL EXAM Alert. Oriented to time, place and person. Speaks only Malay. PERRL. EOMI. CN: no focal findings. Muscle tone: normal. Muscle strength: 5/5 DTR: 2+ Plantar reflex: flexor Gait: not examined in bed. Sensory exam: no abnormal findings. No cerebellar signs elicited. Review of Relevant I have reviewed the following items kavya (where applicable) has been applied. Labs Laboratory Tests Test 05/19/20 11:50 05/19/20 15:20 05/19/20 16:11 05/19/20 20:44 Glucose (Fingerstick) 288 mg/dL (70-99) 304 mg/dL (70-99) 237 mg/dL (70-99) Coronavirus (COVID-19)(PCR) Not detected (NOT DETECT.) Test 05/20/20 04:55 05/20/20 08:51 05/20/20 12:17 05/20/20 17:14 White Blood Count 14.2 x10^3/uL (4.0-11.0) Red Blood Count 3.16 x10^6/uL (3.50-5.40) Hemoglobin 8.7 g/dL (12.0-15.5) Hematocrit 26.0 % (36.0-47.0) Mean Corpuscular Volume 82 fL (79-100) Mean Corpuscular Hemoglobin 27 pg (25-35) Mean Corpuscular Hemoglobin Concent 33 g/dL (31-37) Red Cell Distribution Width 16.3 % (11.5-14.5) Platelet Count 251 x10^3/uL (140-400) Neutrophils (%) (Auto) 84 % (31-73) Lymphocytes (%) (Auto) 8 % (24-48) Monocytes (%) (Auto) 7 % (0-9) Eosinophils (%) (Auto) 1 % (0-3) Basophils (%) (Auto) 0 % (0-3) Neutrophils # (Auto) 11.8 x10^3/uL (1.8-7.7) Lymphocytes # (Auto) 1.1 x10^3/uL (1.0-4.8) Monocytes # (Auto) 1.0 x10^3/uL (0.0-1.1) Eosinophils # (Auto) 0.1 x10^3/uL (0.0-0.7) Basophils # (Auto) 0.1 x10^3/uL (0.0-0.2) Sodium Level 141 mmol/L (136-145) Potassium Level 3.5 mmol/L (3.5-5.1) Chloride Level 107 mmol/L (98-107) Carbon Dioxide Level 21 mmol/L (21-32) Anion Gap 13 (6-14) Blood Urea Nitrogen 31 mg/dL (7-20) Creatinine 1.0 mg/dL (0.6-1.0) Estimated GFR (Cockcroft-Gault) 55.1 Glucose Level 237 mg/dL (70-99) Calcium Level 7.5 mg/dL (8.5-10.1) Total Bilirubin 0.3 mg/dL (0.2-1.0) Direct Bilirubin 0.2 mg/dL (0.0-0.2) Aspartate Amino Transf (AST/SGOT) 28 U/L (15-37) Alanine Aminotransferase (ALT/SGPT) 32 U/L (14-59) Alkaline Phosphatase 306 U/L (46-116) Total Protein 6.2 g/dL (6.4-8.2) Albumin 1.8 g/dL (3.4-5.0) Free Thyroxine 1.54 ng/dL (0.76-1.46) Free Triiodothyronine (T3) pg/mL < 0.50 pg/mL (2.18-3.98) Glucose (Fingerstick) 190 mg/dL (70-99) 272 mg/dL (70-99) 264 mg/dL (70-99) Test 05/20/20 20:45 05/21/20 07:22 Glucose (Fingerstick) 316 mg/dL (70-99) 260 mg/dL (70-99) Laboratory Tests Test 05/20/20 12:17 05/20/20 17:14 05/20/20 20:45 05/21/20 07:22 Glucose (Fingerstick) 272 mg/dL (70-99) 264 mg/dL (70-99) 316 mg/dL (70-99) 260 mg/dL (70-99) Microbiology 05/18/20 Urine Culture - Final, Complete 05/18/20 Blood Culture - Preliminary, Resulted NO GROWTH AFTER 3 DAYS Medications Current Medications Sodium Chloride 1,000 ml @ 1,000 mls/hr 1X ONCE IV Last administered on 05/18/20at 09:29; Start 05/18/20 at 09:15; Stop 05/18/20 at 10:14; Status DC Ceftriaxone Sodium (Rocephin) 1 gm 1X ONCE IVP Last administered on 05/18/20at 09:28; Start 05/18/20 at 09:15; Stop 05/18/20 at 09:16; Status DC Ondansetron HCl (Zofran) 4 mg PRN Q8HRS PRN IV NAUSEA/VOMITING; Start 05/18/20 at 10:15; Stop 05/18/20 at 16:24; Status DC Acetaminophen (Tylenol) 650 mg PRN Q4HRS PRN PO FEVER > 100.3'F; Start 05/18/20 at 10:15; Stop 05/18/20 at 16:24; Status DC Ceftriaxone Sodium (Rocephin) 1 gm Q24H IVP Last administered on 05/20/20at 08 :39; Start 05/19/20 at 09:00 Sodium Chloride (Normal Saline Flush) 3 ml QSHIFT PRN IV AFTER MEDS AND BLOOD DRAWS; Start 05/18/20 at 16:30 Sodium Chloride 1,000 ml @ 85 mls/hr [id number] IV Last administered on 05/21/20at 03:48; Start 05/18/20 at 16:20 Ondansetron HCl (Zofran) 4 mg PRN Q4HRS PRN IV NAUSEA/VOMITING; Start 05/18/20 at 16:30 Acetaminophen (Tylenol) 650 mg PRN Q4HRS PRN PO TEMP OVER 100.4F OR MILD PAIN Last administered on 05/20/20at 23:02; Start 05/18/20 at 16:30 Acetaminophen (Tylenol Supp) 650 mg PRN Q4HRS PRN [place] TEMP OVER 100.4F OR MILD PAIN; Start 05/18/20 at 16:30 Sodium Monofluorophosphate (Fleet Adult) 133 ml PRN DAILY PRN [place] CONSTIPATION; Start 05/18/20 at 16:30 Docusate Sodium (Colace) 100 mg PRN BID PRN PO HARD STOOLS; Start 05/18/20 at 16:30 Albuterol Sulfate (Ventolin Neb Soln) 2.5 mg PRN Q4HRS PRN NEB SHORTNESS OF BREATH; Start 05/18/20 at 16:30 Guaifenesin (Robitussin) 200 mg PRN Q4HRS PRN PO COUGH; Start 05/18/20 at 16:30 Enoxaparin Sodium (Lovenox 40mg Syringe) 40 mg Q24H SQ Last administered on 05/20/20at 15:20; Start 05/18/20 at 17:00 Aspirin (Ecotrin) 81 mg DAILY PO Last administered on 05/21/20at 09:14; Start 05/19/20 at 09:00 Metoprolol Tartrate (Lopressor) 50 mg BID PO Last administered on 05/21/20at 09:16; Start 05/19/20 at 09:00 Diclofenac Sodium (Voltaren) 75 mg BID PO Last administered on 05/21/20at 09:15; Start 05/19/20 at 10:00 Hydralazine HCl (Apresoline) 100 mg BID PO Last administered on 05/21/20at 09:15; Start 05/19/20 at 09:00 Lisinopril (Prinivil) 20 mg DAILY PO Last administered on 05/21/20at 09:16; Start 05/19/20 at 10:00 Pantoprazole Sodium (Protonix) 40 mg DAILYAC PO Last administered on 05/21/20 09:15; Start 05/19/20 at 10:00 Atorvastatin Calcium (Lipitor) 40 mg QHS PO Last administered on 05/20/20 20: 14; Start 05/19/20 at 21:00 Hydrochlorothiazide (Hydrodiuril) 25 mg DAILY PO Last administered on 05/21/20 09:15; Start 05/19/20 at 10:00 Lactobacillus Rhamnosus (Culturelle) 1 cap BID PO Last administered on 05/21/20 09:15; Start 05/19/20 at 21:00 Insulin Human Lispro (HumaLOG) 0-7 UNITS TIDWMEALS SQ Last administered on 05/21/20at 09:44; Start 05/19/20 at 17:00 Dextrose (Dextrose 50%-Water Syringe) 12.5 gm PRN Q15MIN PRN IV SEE COMMENTS; Start 05/19/20 at 14:15 Methimazole (Tapazole) 5 mg BID PO Last administered on 05/21/20at 09:15; Start 05/20/20 at 10:00 Insulin Glargine (Lantus Syringe) 5 unit DAILY SQ Last administered on 05/21/20at 09:00; Start 05/21/20 at 09:00 Active Scripts Active Reported Actos (Pioglitazone Hcl) 45 Mg Tablet 1 Tab PO DAILY 30 Days Diclofenac Sodium 75 Mg Tablet.dr 1 Tab PO BID Klor-Con 10 (Potassium Chloride) 10 Meq Tablet.er 1 Tab PO DAILY 30 Days Metformin Hcl 1,000 Mg Tablet 1,000 Mg PO BIDWMEALS Omeprazole 20 Mg Capsule.dr 1 Cap PO DAILY Lisinopril-Hctz 20-25 Mg Tab (Lisinopril/Hydrochlorothiazide) 1 Each Tablet 1 Tab PO DAILY Aspirin Ec (Aspirin) 81 Mg Tablet.dr 1 Tab PO DAILY Hydralazine Hcl 100 Mg Tablet 1 Tab PO BID Metoprolol Tartrate 50 Mg Tablet 1 Tab PO BID Rosuvastatin Calcium 10 Mg Tablet 10 Mg PO DAILY Vitals/I & O Vital Sign - Last 24 Hours 05/20/20 05/20/20 05/20/20 05/20/20 10:37 15:00 19:35 20:00 Temp 97.6 97.5 98.9 97.6 97.5 98.9 Pulse 73 54 86 Resp 20 16 16 B/P (MAP) 148/66 (93) 163/74 (103) 149/61 (90) Pulse Ox 91 97 89 O2 Delivery Nasal Cannula Nasal Cannula Nasal Cannula Nasal Cannula O2 Flow Rate 4.0 4.0 4.0 4.0 05/20/20 05/20/20 05/20/20 05/21/20 20:13 20:14 23:15 03:51 Temp 101.5 99.6 101.5 99.6 Pulse 86 86 78 73 Resp 16 16 B/P (MAP) 149/61 149/61 132/62 (85) 118/53 (74) Pulse Ox 90 90 O2 Delivery Nasal Cannula Nasal Cannula O2 Flow Rate 4.0 4.0 05/21/20 05/21/20 05/21/20 05/21/20 07:46 08:30 09:15 09:16 Temp 97.9 97.9 Pulse 73 73 73 Resp 18 B/P (MAP) 139/54 (82) 139/54 139/54 Pulse Ox 93 O2 Delivery Nasal Cannula Nasal Cannula O2 Flow Rate 4.0 4.0 05/21/20 09:16 Pulse 73 B/P (MAP) 139/54 Intake and Output 05/20/20 05/20/20 05/21/20 15:00 23:00 07:00 Intake Total 250 ml 200 ml Balance 250 ml 200 ml Justicifation of Admission Dx: Justifications for Admission: Justification of Admission Dx: Yes Altered Mental Status: Altered Mental Status DARREL CASTRO MD May 21, 2020 10:14
[2020-05-21] MEDS: cefTRIAXone IV Push 1 GM VIAL. IVP SCH (11:21)
--- NOTE | 2020-05-21 11:52 | PDOC ---
PROGRESS NOTES Chief Complaint Chief Complaint ASSESSMENT Acute hypoxic respiratory failure secondary to multifocal infiltrate/pleural effusions FEVER Hyperthyroidism likely Graves Dz Hypoglycemic encephalopathy, resolved Severe protein-calorie malnutrition. DM2, a1c on admission 7% HTN PLAN repeat cxr: IMPRESSION: Slight interval increase in partially consolidated multifocal infiltrate and small left greater than right pleural effusions. sars cov 2 - x2 follow blood cultures supplemental 02 Continue empiric antibiotics. continue home BP meds T4 elevated, TSH low. check TSI. HR stable. already on BB therapy. start methimazole. refer to outpatient endocrine at discharge SSI. holding home diabetic meds. a1c only 7% dvt ppx apprec neuro and pulm History of Present Illness History of Present Illness feels better today. no fever today so far Vitals Vitals Vital Signs Date Time Temp Pulse Resp B/P (MAP) Pulse Ox O2 Delivery O2 Flow Rate FiO2 05/21/20 11:44 98.4 69 18 145/64 (91) 86 Nasal Cannula 4.0 98.4 Physical Exam General: Cooperative, No acute distress Lungs: Clear Abdomen: Soft Labs LABS Laboratory Tests Test 05/20/20 12:17 05/20/20 17:14 05/20/20 20:45 05/21/20 07:22 Glucose (Fingerstick) 272 mg/dL (70-99) 264 mg/dL (70-99) 316 mg/dL (70-99) 260 mg/dL (70-99) Test 05/21/20 11:11 Glucose (Fingerstick) 234 mg/dL (70-99) Assessment and Plan Assessmemt and Plan Problems Medical Problems: (1) Altered mental status Status: Acute (2) Hypoglycemia Status: Acute (3) Hypothermia Status: Acute Comment Review of Relevant I have reviewed the following items kavya (where applicable) has been applied. Labs Laboratory Tests Test 05/19/20 15:20 05/19/20 16:11 05/19/20 20:44 05/20/20 04:55 Coronavirus (COVID-19)(PCR) Not detected (NOT DETECT.) Glucose (Fingerstick) 304 mg/dL (70-99) 237 mg/dL (70-99) White Blood Count 14.2 x10^3/uL (4.0-11.0) Red Blood Count 3.16 x10^6/uL (3.50-5.40) Hemoglobin 8.7 g/dL (12.0-15.5) Hematocrit 26.0 % (36.0-47.0) Mean Corpuscular Volume 82 fL (79-100) Mean Corpuscular Hemoglobin 27 pg (25-35) Mean Corpuscular Hemoglobin Concent 33 g/dL (31-37) Red Cell Distribution Width 16.3 % (11.5-14.5) Platelet Count 251 x10^3/uL (140-400) Neutrophils (%) (Auto) 84 % (31-73) Lymphocytes (%) (Auto) 8 % (24-48) Monocytes (%) (Auto) 7 % (0-9) Eosinophils (%) (Auto) 1 % (0-3) Basophils (%) (Auto) 0 % (0-3) Neutrophils # (Auto) 11.8 x10^3/uL (1.8-7.7) Lymphocytes # (Auto) 1.1 x10^3/uL (1.0-4.8) Monocytes # (Auto) 1.0 x10^3/uL (0.0-1.1) Eosinophils # (Auto) 0.1 x10^3/uL (0.0-0.7) Basophils # (Auto) 0.1 x10^3/uL (0.0-0.2) Sodium Level 141 mmol/L (136-145) Potassium Level 3.5 mmol/L (3.5-5.1) Chloride Level 107 mmol/L (98-107) Carbon Dioxide Level 21 mmol/L (21-32) Anion Gap 13 (6-14) Blood Urea Nitrogen 31 mg/dL (7-20) Creatinine 1.0 mg/dL (0.6-1.0) Estimated GFR (Cockcroft-Gault) 55.1 Glucose Level 237 mg/dL (70-99) Calcium Level 7.5 mg/dL (8.5-10.1) Total Bilirubin 0.3 mg/dL (0.2-1.0) Direct Bilirubin 0.2 mg/dL (0.0-0.2) Aspartate Amino Transf (AST/SGOT) 28 U/L (15-37) Alanine Aminotransferase (ALT/SGPT) 32 U/L (14-59) Alkaline Phosphatase 306 U/L (46-116) Total Protein 6.2 g/dL (6.4-8.2) Albumin 1.8 g/dL (3.4-5.0) Free Thyroxine 1.54 ng/dL (0.76-1.46) Free Triiodothyronine (T3) pg/mL < 0.50 pg/mL (2.18-3.98) Test 05/20/20 08:51 05/20/20 12:17 05/20/20 17:14 05/20/20 20:45 Glucose (Fingerstick) 190 mg/dL (70-99) 272 mg/dL (70-99) 264 mg/dL (70-99) 316 mg/dL (70-99) Test 05/21/20 07:22 05/21/20 11:11 Glucose (Fingerstick) 260 mg/dL (70-99) 234 mg/dL (70-99) Laboratory Tests Test 05/20/20 12:17 05/20/20 17:14 05/20/20 20:45 05/21/20 07:22 Glucose (Fingerstick) 272 mg/dL (70-99) 264 mg/dL (70-99) 316 mg/dL (70-99) 260 mg/dL (70-99) Test 05/21/20 11:11 Glucose (Fingerstick) 234 mg/dL (70-99) Microbiology 05/18/20 Urine Culture - Final, Complete 05/18/20 Blood Culture - Preliminary, Resulted NO GROWTH AFTER 3 DAYS Medications Current Medications Sodium Chloride 1,000 ml @ 1,000 mls/hr 1X ONCE IV Last administered on 05/18/20at 09:29; Start 05/18/20 at 09:15; Stop 05/18/20 at 10:14; Status DC Ceftriaxone Sodium (Rocephin) 1 gm 1X ONCE IVP Last administered on 05/18/20at 09:28; Start 05/18/20 at 09:15; Stop 05/18/20 at 09:16; Status DC Ondansetron HCl (Zofran) 4 mg PRN Q8HRS PRN IV NAUSEA/VOMITING; Start 05/18/20 at 10:15; Stop 05/18/20 at 16:24; Status DC Acetaminophen (Tylenol) 650 mg PRN Q4HRS PRN PO FEVER > 100.3'F; Start 05/18/20 at 10:15; Stop 05/18/20 at 16:24; Status DC Ceftriaxone Sodium (Rocephin) 1 gm Q24H IVP Last administered on 05/21/20at 11:21; Start 05/19/20 at 09:00 Sodium Chloride (Normal Saline Flush) 3 ml QSHIFT PRN IV AFTER MEDS AND BLOOD DRAWS; Start 05/18/20 at 16:30 Sodium Chloride 1,000 ml @ 85 mls/hr [id number] IV Last administered on 05/21/20at 03:48; Start 05/18/20 at 16:20 Ondansetron HCl (Zofran) 4 mg PRN Q4HRS PRN IV NAUSEA/VOMITING; Start 05/18/20 at 16:30 Acetaminophen (Tylenol) 650 mg PRN Q4HRS PRN PO TEMP OVER 100.4F OR MILD PAIN Last administered on 05/20/20at 23:02; Start 05/18/20 at 16:30 Acetaminophen (Tylenol Supp) 650 mg PRN Q4HRS PRN [place] TEMP OVER 100.4F OR MILD PAIN; Start 05/18/20 at 16:30 Sodium Monofluorophosphate (Fleet Adult) 133 ml PRN DAILY PRN [place] CONSTIPATION; Start 05/18/20 at 16:30 Docusate Sodium (Colace) 100 mg PRN BID PRN PO HARD STOOLS; Start 05/18/20 at 16:30 Albuterol Sulfate (Ventolin Neb Soln) 2.5 mg PRN Q4HRS PRN NEB SHORTNESS OF BREATH; Start 05/18/20 at 16:30 Guaifenesin (Robitussin) 200 mg PRN Q4HRS PRN PO COUGH; Start 05/18/20 at 16:30 Enoxaparin Sodium (Lovenox 40mg Syringe) 40 mg Q24H SQ Last administered on 05/20/20at 15:20; Start 05/18/20 at 17:00 Aspirin (Ecotrin) 81 mg DAILY PO Last administered on 05/21/20at 09:14; Start 05/19/20 at 09:00 Metoprolol Tartrate (Lopressor) 50 mg BID PO Last administered on 05/21/20at 09:16; Start 05/19/20 at 09:00 Diclofenac Sodium (Voltaren) 75 mg BID PO Last administered on 05/21/20 09:15; Start 05/19/20 at 10:00 Hydralazine HCl (Apresoline) 100 mg BID PO Last administered on 05/21/20 09:15; Start 05/19/20 at 09:00 Lisinopril (Prinivil) 20 mg DAILY PO Last administered on 05/21/20 09:16; Start 05/19/20 at 10:00 Pantoprazole Sodium (Protonix) 40 mg DAILYAC PO Last administered on 05/21/20 09:15; Start 05/19/20 at 10:00 Atorvastatin Calcium (Lipitor) 40 mg QHS PO Last administered on 05/20/20 20:14; Start 05/19/20 at 21:00 Hydrochlorothiazide (Hydrodiuril) 25 mg DAILY PO Last administered on 05/21/20 09:15; Start 05/19/20 at 10:00 Lactobacillus Rhamnosus (Culturelle) 1 cap BID PO Last administered on 05/21/20 09:15; Start 05/19/20 at 21:00 Insulin Human Lispro (HumaLOG) 0-7 UNITS TIDWMEALS SQ Last administered on 05/21/20 11:40; Start 05/19/20 at 17:00 Dextrose (Dextrose 50%-Water Syringe) 12.5 gm PRN Q15MIN PRN IV SEE COMMENTS; Start 05/19/20 at 14:15 Methimazole (Tapazole) 5 mg BID PO Last administered on 05/21/20 09:15; Start 05/20/20 at 10:00 Insulin Glargine (Lantus Syringe) 5 unit DAILY SQ Last administered on 05/21/20at 09:00; Start 05/21/20 at 09:00 Active Scripts Active Reported Actos (Pioglitazone Hcl) 45 Mg Tablet 1 Tab PO DAILY 30 Days Diclofenac Sodium 75 Mg Tablet.dr 1 Tab PO BID Klor-Con 10 (Potassium Chloride) 10 Meq Tablet.er 1 Tab PO DAILY 30 Days Metformin Hcl 1,000 Mg Tablet 1,000 Mg PO BIDWMEALS Omeprazole 20 Mg Capsule.dr 1 Cap PO DAILY Lisinopril-Hctz 20-25 Mg Tab (Lisinopril/Hydrochlorothiazide) 1 Each Tablet 1 Tab PO DAILY Aspirin Ec (Aspirin) 81 Mg Tablet.dr 1 Tab PO DAILY Hydralazine Hcl 100 Mg Tablet 1 Tab PO BID Metoprolol Tartrate 50 Mg Tablet 1 Tab PO BID Rosuvastatin Calcium 10 Mg Tablet 10 Mg PO DAILY Vitals/I & O Vital Sign - Last 24 Hours 05/20/20 05/20/20 05/20/20 05/20/20 15:00 19:35 20:00 20:13 Temp 97.5 98.9 97.5 98.9 Pulse 54 86 86 Resp 16 16 B/P (MAP) 163/74 (103) 149/61 (90) 149/61 Pulse Ox 97 89 O2 Delivery Nasal Cannula Nasal Cannula Nasal Cannula O2 Flow Rate 4.0 4.0 4.0 05/20/20 05/20/20 05/21/20 05/21/20 20:14 23:15 03:51 07:46 Temp 101.5 99.6 97.9 101.5 99.6 97.9 Pulse 86 78 73 73 Resp 16 16 18 B/P (MAP) 149/61 132/62 (85) 118/53 (74) 139/54 (82) Pulse Ox 90 90 93 O2 Delivery Nasal Cannula Nasal Cannula Nasal Cannula O2 Flow Rate 4.0 4.0 4.0 05/21/20 05/21/20 05/21/20 05/21/20 08:30 09:15 09:16 09:16 Pulse 73 73 73 B/P (MAP) 139/54 139/54 139/54 O2 Delivery Nasal Cannula O2 Flow Rate 4.0 05/21/20 11:44 Temp 98.4 98.4 Pulse 69 Resp 18 B/P (MAP) 145/64 (91) Pulse Ox 86 O2 Delivery Nasal Cannula O2 Flow Rate 4.0 Intake and Output 05/20/20 05/20/20 05/21/20 15:00 23:00 07:00 Intake Total 250 ml 200 ml Balance 250 ml 200 ml SUYAPA MCCORMICK MD May 21, 2020 11:52
--- NOTE | 2020-05-21 12:03 | NUR ---
SW following. Coordinated care with RN and reviewed chart. Discharge remains home when stable. Pt hypoxic today and going for a chest x-ray. Pt has a fever and is not ready for discharge. Pt on 4l 02. 02 setup will be needed if pt requires 02 at discharge. SW to continue following.
[2020-05-21] MEDS: DOXYCYCLINE HYCLATE 100 MG TABLET PO SCH ×2 (15:56→21:12)
[2020-05-21] MEDS: ENOXAPARIN 40 MG/0.4 ML SYRINGE. SQ SCH (15:56)
--- NOTE | 2020-05-21 15:59 | NUR ---
Patient is hypoxic : O2 Sat 86-89 with 4L NC ; Oxygen increased to 8L simple mask - O2 increased 92-93% . Patient HR 48-55 Sinus Jerry. Currently SR, BP 125/[address] Gonzales. Orders received. RT Q4 Treatments, ABG, Hold Lisinopril, Metoprolol and Hydralazine.
[2020-05-21 16:40] LABS: BASE EXCESS ABG -2 mmol/L (-3-3); HCO3 ABG 22 mmol/L (21-28); PCO2 ABG 33 mmHg (35-46); PO2 ABG 63 mmHg (65-108); SAT O2 ABG 92 % (92-99)
[2020-05-21 16:42] LABS: FIO2 ABG 8 lpm mask
[2020-05-21] MEDS ORDERED: FUROSEMIDE 20 MG/2 ML VIAL. IVP ONE (17:00)
--- NOTE | 2020-05-21 18:15 | NUR ---
Pt transferred to room 106 from 6S via bed and oxygen. Pt assisted to the ICU bed and connected to monitoring equipment. Pt is in SR, placed on vapotherm with oxygen at 25L and FiO2 at 100%. O2 sats are now up to 95%. Head of bed elevated and call light with in reach.
[2020-05-21] MEDS: STERILE WATER for RESP 1,000 ML BAG. INH PRN (18:18)
[2020-05-21] MEDS: ALBUTEROL SULFATE 2.5 MG/3 ML NEBU. NEB SCH ×2 (20:09→23:55)
[2020-05-21] MEDS: ACETAMINOPHEN 325 MG TABLET. PO PRN (21:10)
[2020-05-21] MEDS: ATORVASTATIN CALCIUM 40 MG TABLET. PO SCH (21:12)
[2020-05-22] VITALS (20 sets, daily range): BP systolic 124–170; BP diastolic 54–77
[2020-05-22] MEDS: ALBUTEROL SULFATE 2.5 MG/3 ML NEBU. NEB SCH ×6 (04:00→23:17)
[2020-05-22] MEDS: STERILE WATER for RESP 1,000 ML BAG. INH PRN (05:23)
[2020-05-22 05:28] LABS: BASO # 0.1 x10^3/uL (0.0-0.2); BASO % 1 % (0-3); EOS # 0.2 x10^3/uL (0.0-0.7); EOS % 1 % (0-3); HEMATOCRIT 24.2 % (36.0-47.0); HEMOGLOBIN 8.1 g/dL (12.0-15.5); LYMPH # 1.6 x10^3/uL (1.0-4.8); LYMPH % 13 % (24-48); MEAN CORPUSCULAR HEMOGLOBIN 27 pg (25-35); MEAN CORPUSCULAR HGB CONC 33 g/dL (31-37); MEAN CORPUSCULAR VOLUME 81 fL (79-100); MONO # 0.9 x10^3/uL (0.0-1.1); MONO % 8 % (0-9); NEUT # 9.8 x10^3/uL (1.8-7.7); NEUT % 78 % (31-73); PLATELET COUNT 263 x10^3/uL (140-400); RED BLOOD COUNT 2.99 x10^6/uL (3.50-5.40); RED CELL DISTRIBUTION WIDTH 16.3 % (11.5-14.5); WHITE BLOOD COUNT 12.5 x10^3/uL (4.0-11.0)
[2020-05-22 05:59] LABS: ALBUMIN 1.7 g/dL (3.4-5.0); CALCIUM 7.3 mg/dL (8.5-10.1); CREATININE 0.8 mg/dL (0.6-1.0); DIRECT BILIRUBIN 0.3 mg/dL (0.0-0.2); GFR 71.3; POTASSIUM 3.1 mmol/L (3.5-5.1); TOTAL BILIRUBIN 0.4 mg/dL (0.2-1.0); TOTAL PROTEIN 6.3 g/dL (6.4-8.2)
[2020-05-22] MEDS: PANTOPRAZOLE 40 MG TABLET.DR. PO SCH (06:01)
[2020-05-22] MEDS: IV NORMAL SALINE 1000ML BAG 1,000 ML IV SCH ×2 (06:08→19:32)
[2020-05-22] MEDS: INSULIN LISPRO 300 UNITS/3 ML VIAL. SQ SCH ×3 (08:19→17:22)
[2020-05-22 08:59] LABS: BASE EXCESS ABG 0 mmol/L (-3-3); HCO3 ABG 24 mmol/L (21-28); PCO2 ABG 34 mmHg (35-46); PO2 ABG 82 mmHg (65-108); SAT O2 ABG 95 % (92-99)
[2020-05-22] MEDS ORDERED: VANCOMYCIN 2 GM in IV NORMAL SALINE 500ML BAG 500 ML IV ONE (09:00)
[2020-05-22] MEDS: LACTOBACILLUS RHAMNOSUS GG 1 CAPSULE. PO SCH ×2 (09:02→20:26)
[2020-05-22] MEDS: ASPIRIN ENTERIC COATED 81 MG TABLET.DR. PO SCH (09:03)
[2020-05-22] MEDS: DICLOFENAC SODIUM 25 MG TABLET.DR PO SCH ×2 (09:04→20:27)
[2020-05-22] MEDS: DOXYCYCLINE HYCLATE 100 MG TABLET PO SCH ×2 (09:04→20:26)
[2020-05-22] MEDS: hydroCHLOROthiazide 25 MG TABLET PO SCH (09:04)
[2020-05-22 09:05] LABS: FIO2 ABG vapotherm 25 lpm
[2020-05-22] MEDS: methIMAzole 10 MG TABLET PO SCH ×2 (09:05→20:26)
[2020-05-22] MEDS: cefTRIAXone IV Push 1 GM VIAL. IVP SCH (09:05)
[2020-05-22] MEDS: INSULIN GLARGINE SYRINGE. SQ SCH ×2 (09:15→21:26)
[2020-05-22] MEDS: VANCOMYCIN PER PHARMACY MC PRN (09:20)
--- NOTE | 2020-05-22 09:24 | NUR ---
Pharmacy Vancomycin Dosing Note S:Consulted to monitor and dose vancomycin started 05/22/20. O:DANDRE ROCKWELL is a 70 year old F with Bacteremia. Height: 5 feet, 0 inches Weight: 86.0 kg Dosing Weight: Actual Other Antibiotics: ceftriaxone 1 gm q24h LABS: Last BUN: 19 Last Creatinine: 0.8 Creatinine Clearance: 52 mL/min Last WBC: 12.5 Last Procalcitonin: -- Tmax (past 24 hours): 99.6 Microbiology: 05/18: blood cx: gram positive cocci in clusers (1/2 bottles) 05/18: urine cx: No growth final I/O: 550 / -- (5 voids) Drug Levels: Last dose given 05/22/20 at 0905 Vancomycin Dosing: Loading Dose: 2000 mg x1 Dosing Weight: Actual Target Trough: 15-20 A: Based on: patient's age, weight and renal function. P: 1. Begin vancomycin 1.25 gm q24h starting after initial vancomycin 2 gm loading dose. 2. Follow up Trough level on 05/24/20 at 0830 3. Pharmacy will continue to monitor, follow and adjust therapy as needed. JESE ZAMORA RPH, 05/22/20 [id number]
--- NOTE | 2020-05-22 11:07 | PDOC ---
PULMONARY PROGRESS NOTES Subjective Patient feels better, still having some intermittent shortness of breath off Vapo therm on 10 liters N/C Romanian speaking only, family at bedside Vitals Vital Signs Date Time Temp Pulse Resp B/P (MAP) Pulse Ox O2 Delivery O2 Flow Rate FiO2 05/22/20 09:42 82 26 140/71 (94) 92 Nasal Cannula 10.0 05/22/20 07:43 99.6 99.6 ROS: No Nausea, No Chest Pain, No Abdominal Pain, No Increase Cough General: Alert, Oriented X4 Lungs: Clear Cardiovascular: S1, S2 Abdomen: Soft Neuro Exam: Alert Extremities: Other (+1 BLE edema and +@ RUE ) Skin: Warm Labs Laboratory Tests Test 05/20/20 12:17 05/20/20 17:14 05/20/20 20:45 05/21/20 07:22 Glucose (Fingerstick) 272 mg/dL (70-99) 264 mg/dL (70-99) 316 mg/dL (70-99) 260 mg/dL (70-99) Test 05/21/20 11:11 05/21/20 16:30 05/21/20 16:38 05/21/20 22:15 Glucose (Fingerstick) 234 mg/dL (70-99) 255 mg/dL (70-99) 244 mg/dL (70-99) O2 Saturation 92 % (92-99) Arterial Blood pH 7.44 (7.35-7.45) Arterial Blood pCO2 at Patient Temp 33 mmHg (35-46) Arterial Blood pO2 at Patient Temp 63 mmHg (65-108) Arterial Blood HCO3 22 mmol/L (21-28) Arterial Blood Base Excess -2 mmol/L (-3-3) FiO2 8 lpm mask Test 05/22/20 05:08 05/22/20 08:50 White Blood Count 12.5 x10^3/uL (4.0-11.0) Red Blood Count 2.99 x10^6/uL (3.50-5.40) Hemoglobin 8.1 g/dL (12.0-15.5) Hematocrit 24.2 % (36.0-47.0) Mean Corpuscular Volume 81 fL (79-100) Mean Corpuscular Hemoglobin 27 pg (25-35) Mean Corpuscular Hemoglobin Concent 33 g/dL (31-37) Red Cell Distribution Width 16.3 % (11.5-14.5) Platelet Count 263 x10^3/uL (140-400) Neutrophils (%) (Auto) 78 % (31-73) Lymphocytes (%) (Auto) 13 % (24-48) Monocytes (%) (Auto) 8 % (0-9) Eosinophils (%) (Auto) 1 % (0-3) Basophils (%) (Auto) 1 % (0-3) Neutrophils # (Auto) 9.8 x10^3/uL (1.8-7.7) Lymphocytes # (Auto) 1.6 x10^3/uL (1.0-4.8) Monocytes # (Auto) 0.9 x10^3/uL (0.0-1.1) Eosinophils # (Auto) 0.2 x10^3/uL (0.0-0.7) Basophils # (Auto) 0.1 x10^3/uL (0.0-0.2) Sodium Level 142 mmol/L (136-145) Potassium Level 3.1 mmol/L (3.5-5.1) Chloride Level 106 mmol/L (98-107) Carbon Dioxide Level 25 mmol/L (21-32) Anion Gap 11 (6-14) Blood Urea Nitrogen 19 mg/dL (7-20) Creatinine 0.8 mg/dL (0.6-1.0) Estimated GFR (Cockcroft-Gault) 71.3 Glucose Level 239 mg/dL (70-99) Calcium Level 7.3 mg/dL (8.5-10.1) Total Bilirubin 0.4 mg/dL (0.2-1.0) Direct Bilirubin 0.3 mg/dL (0.0-0.2) Aspartate Amino Transf (AST/SGOT) 54 U/L (15-37) Alanine Aminotransferase (ALT/SGPT) 42 U/L (14-59) Alkaline Phosphatase 416 U/L (46-116) Total Protein 6.3 g/dL (6.4-8.2) Albumin 1.7 g/dL (3.4-5.0) O2 Saturation 95 % (92-99) Arterial Blood pH 7.46 (7.35-7.45) Arterial Blood pCO2 at Patient Temp 34 mmHg (35-46) Arterial Blood pO2 at Patient Temp 82 mmHg (65-108) Arterial Blood HCO3 24 mmol/L (21-28) Arterial Blood Base Excess 0 mmol/L (-3-3) FiO2 vapotherm 25 lpm Laboratory Tests Test 05/21/20 11:11 05/21/20 16:30 05/21/20 16:38 05/21/20 22:15 Glucose (Fingerstick) 234 mg/dL (70-99) 255 mg/dL (70-99) 244 mg/dL (70-99) O2 Saturation 92 % (92-99) Arterial Blood pH 7.44 (7.35-7.45) Arterial Blood pCO2 at Patient Temp 33 mmHg (35-46) Arterial Blood pO2 at Patient Temp 63 mmHg (65-108) Arterial Blood HCO3 22 mmol/L (21-28) Arterial Blood Base Excess -2 mmol/L (-3-3) FiO2 8 lpm mask Test 05/22/20 05:08 05/22/20 08:50 White Blood Count 12.5 x10^3/uL (4.0-11.0) Red Blood Count 2.99 x10^6/uL (3.50-5.40) Hemoglobin 8.1 g/dL (12.0-15.5) Hematocrit 24.2 % (36.0-47.0) Mean Corpuscular Volume 81 fL (79-100) Mean Corpuscular Hemoglobin 27 pg (25-35) Mean Corpuscular Hemoglobin Concent 33 g/dL (31-37) Red Cell Distribution Width 16.3 % (11.5-14.5) Platelet Count 263 x10^3/uL (140-400) Neutrophils (%) (Auto) 78 % (31-73) Lymphocytes (%) (Auto) 13 % (24-48) Monocytes (%) (Auto) 8 % (0-9) Eosinophils (%) (Auto) 1 % (0-3) Basophils (%) (Auto) 1 % (0-3) Neutrophils # (Auto) 9.8 x10^3/uL (1.8-7.7) Lymphocytes # (Auto) 1.6 x10^3/uL (1.0-4.8) Monocytes # (Auto) 0.9 x10^3/uL (0.0-1.1) Eosinophils # (Auto) 0.2 x10^3/uL (0.0-0.7) Basophils # (Auto) 0.1 x10^3/uL (0.0-0.2) Sodium Level 142 mmol/L (136-145) Potassium Level 3.1 mmol/L (3.5-5.1) Chloride Level 106 mmol/L (98-107) Carbon Dioxide Level 25 mmol/L (21-32) Anion Gap 11 (6-14) Blood Urea Nitrogen 19 mg/dL (7-20) Creatinine 0.8 mg/dL (0.6-1.0) Estimated GFR (Cockcroft-Gault) 71.3 Glucose Level 239 mg/dL (70-99) Calcium Level 7.3 mg/dL (8.5-10.1) Total Bilirubin 0.4 mg/dL (0.2-1.0) Direct Bilirubin 0.3 mg/dL (0.0-0.2) Aspartate Amino Transf (AST/SGOT) 54 U/L (15-37) Alanine Aminotransferase (ALT/SGPT) 42 U/L (14-59) Alkaline Phosphatase 416 U/L (46-116) Total Protein 6.3 g/dL (6.4-8.2) Albumin 1.7 g/dL (3.4-5.0) O2 Saturation 95 % (92-99) Arterial Blood pH 7.46 (7.35-7.45) Arterial Blood pCO2 at Patient Temp 34 mmHg (35-46) Arterial Blood pO2 at Patient Temp 82 mmHg (65-108) Arterial Blood HCO3 24 mmol/L (21-28) Arterial Blood Base Excess 0 mmol/L (-3-3) FiO2 vapotherm 25 lpm Medications Active Scripts Medications Dose Route/Sig Max Daily Dose Days Date Category Actos (Pioglitazone Hcl) 45 Mg Tablet 1 Tab PO DAILY 05/18/20 Reported Diclofenac Sodium 75 Mg Tablet.dr 1 Tab PO BID 05/18/20 Reported Klor-Con 10 (Potassium Chloride) 10 Meq Tablet.er 1 Tab PO DAILY 30 05/18/20 Reported Metformin Hcl 1,000 Mg Tablet 1,000 Mg PO BIDWMEALS 05/18/20 Reported Omeprazole 20 Mg Capsule.dr 1 Cap PO DAILY 05/18/20 Reported Lisinopril-Hctz 20-25 Mg Tab (Lisinopril/Hydrochlorothiazide) 1 Each Tablet 1 Tab PO DAILY 05/18/20 Reported Aspirin Ec (Aspirin) 81 Mg Tablet.dr 1 Tab PO DAILY 05/18/20 Reported Hydralazine Hcl 100 Mg Tablet 1 Tab PO BID 05/18/20 Reported Metoprolol Tartrate 50 Mg Tablet 1 Tab PO BID 05/18/20 Reported Rosuvastatin Calcium 10 Mg Tablet 10 Mg PO DAILY 05/18/20 Reported Comments CXR- IMPRESSION: Slight interval increase in partially consolidated multifocal infiltrate and small left greater than right pleural effusions. Impression . IMPRESSION: 1. Acute hypoxic respiratory failure --improving 2. Abnormal chest x-ray with bilateral infiltrates 3. Fever 102, --improving 4. Hypoglycemic encephalopathy, resolved. 5. Severe protein-calorie malnutrition. 6. Mild azotemia. 7. SARS-CoV-2 negative x2 Plan . Supplemental oxygen to keep sats above 92%, now off vapotherm on 10 liters N/C Contiue ABX SARS-CoV-2 negative x2 DM per IM HTN per IM Fever- low grade overnight and this am-- Tylenol PRN PT/OT D/W RN CC time 30 minutes KING WHITTINGTON MD May 22, 2020 11:07
[2020-05-22] MEDS: methylPREDNISolone SOD SUCC PF 125 MG/2 ML VIAL. IV SCH ×2 (14:18→21:27)
[2020-05-22] MEDS: ENOXAPARIN 40 MG/0.4 ML SYRINGE. SQ SCH (17:20)
[2020-05-22] MEDS: ATORVASTATIN CALCIUM 40 MG TABLET. PO SCH (20:27)
[2020-05-22] MEDS: guaiFENesin ORAL 200 MG/10 ML LIQUID. PO PRN (20:27)
[2020-05-23] VITALS (20 sets, daily range): BP systolic 139–173; BP diastolic 61–80
[2020-05-23 04:38] LABS: CREATININE 0.8 mg/dL (0.6-1.0); GFR 71.3
[2020-05-23] MEDS: ALBUTEROL SULFATE 2.5 MG/3 ML NEBU. NEB SCH ×6 (04:45→23:49)
[2020-05-23] MEDS: IV NORMAL SALINE 1000ML BAG 1,000 ML IV SCH ×2 (05:44→17:51)
--- NOTE | 2020-05-23 05:45 | RAD ---
AP chest. HISTORY: Short of breath AP view was taken of the chest. There are diffuse bilateral infiltrates. Heart is upper normal in size. There is a possible left effusion. IMPRESSION: 1. Persistent infiltrates with little change. Electronically signed by: Kody Almazan MD (05/23/2020 5:42 AM) [id number]
[2020-05-23] MEDS: methylPREDNISolone SOD SUCC PF 125 MG/2 ML VIAL. IV SCH ×3 (06:25→20:59)
[2020-05-23] MEDS: VANCOMYCIN PER PHARMACY MC PRN (07:36)
[2020-05-23] MEDS: PANTOPRAZOLE 40 MG TABLET.DR. PO SCH (07:54)
[2020-05-23] MEDS: INSULIN LISPRO 300 UNITS/3 ML VIAL. SQ SCH ×3 (07:58→17:22)
[2020-05-23] MEDS: DICLOFENAC SODIUM 25 MG TABLET.DR PO SCH ×2 (08:58→19:58)
[2020-05-23] MEDS: LACTOBACILLUS RHAMNOSUS GG 1 CAPSULE. PO SCH ×2 (08:59→19:58)
[2020-05-23] MEDS: hydroCHLOROthiazide 25 MG TABLET PO SCH (08:59)
[2020-05-23] MEDS: ASPIRIN ENTERIC COATED 81 MG TABLET.DR. PO SCH (08:59)
[2020-05-23] MEDS: DOXYCYCLINE HYCLATE 100 MG TABLET PO SCH ×2 (08:59→19:58)
[2020-05-23] MEDS: cefTRIAXone IV Push 1 GM VIAL. IVP SCH (09:00)
[2020-05-23] MEDS ORDERED: VANCOMYCIN 1.25 GM in IV NORMAL SALINE 250ML 250 ML IV SCH (09:00)
[2020-05-23] MEDS: methIMAzole 10 MG TABLET PO SCH ×2 (09:00→19:58)
[2020-05-23] MEDS: INSULIN GLARGINE SYRINGE. SQ SCH ×2 (09:11→20:11)
--- NOTE | 2020-05-23 10:08 | PDOC ---
PULMONARY PROGRESS NOTES Subjective Patient feeling good today, reports SOB , denies increase in cough Nursing report overnight hypoxia and now back on Vapotherm 16 L and 100% Vitals Vital Signs Date Time Temp Pulse Resp B/P (MAP) Pulse Ox O2 Delivery O2 Flow Rate FiO2 05/23/20 08:45 96 35 156/63 (94) 96 Nasal Cannula 16.0 05/23/20 06:45 98.2 98.2 ROS: No Nausea, No Chest Pain, No Abdominal Pain, No Increase Cough General: Alert, Oriented X4 Lungs: Clear Cardiovascular: S1, S2 Abdomen: Soft Neuro Exam: Alert Extremities: Other (+1 BLE edema and +@ RUE ) Skin: Warm Labs Laboratory Tests Test 05/21/20 11:11 05/21/20 16:30 05/21/20 16:38 05/21/20 22:15 Glucose (Fingerstick) 234 mg/dL (70-99) 255 mg/dL (70-99) 244 mg/dL (70-99) O2 Saturation 92 % (92-99) Arterial Blood pH 7.44 (7.35-7.45) Arterial Blood pCO2 at Patient Temp 33 mmHg (35-46) Arterial Blood pO2 at Patient Temp 63 mmHg (65-108) Arterial Blood HCO3 22 mmol/L (21-28) Arterial Blood Base Excess -2 mmol/L (-3-3) FiO2 8 lpm mask Test 05/22/20 05:08 05/22/20 08:50 05/22/20 11:21 05/22/20 17:02 White Blood Count 12.5 x10^3/uL (4.0-11.0) Red Blood Count 2.99 x10^6/uL (3.50-5.40) Hemoglobin 8.1 g/dL (12.0-15.5) Hematocrit 24.2 % (36.0-47.0) Mean Corpuscular Volume 81 fL (79-100) Mean Corpuscular Hemoglobin 27 pg (25-35) Mean Corpuscular Hemoglobin Concent 33 g/dL (31-37) Red Cell Distribution Width 16.3 % (11.5-14.5) Platelet Count 263 x10^3/uL (140-400) Neutrophils (%) (Auto) 78 % (31-73) Lymphocytes (%) (Auto) 13 % (24-48) Monocytes (%) (Auto) 8 % (0-9) Eosinophils (%) (Auto) 1 % (0-3) Basophils (%) (Auto) 1 % (0-3) Neutrophils # (Auto) 9.8 x10^3/uL (1.8-7.7) Lymphocytes # (Auto) 1.6 x10^3/uL (1.0-4.8) Monocytes # (Auto) 0.9 x10^3/uL (0.0-1.1) Eosinophils # (Auto) 0.2 x10^3/uL (0.0-0.7) Basophils # (Auto) 0.1 x10^3/uL (0.0-0.2) Sodium Level 142 mmol/L (136-145) Potassium Level 3.1 mmol/L (3.5-5.1) Chloride Level 106 mmol/L (98-107) Carbon Dioxide Level 25 mmol/L (21-32) Anion Gap 11 (6-14) Blood Urea Nitrogen 19 mg/dL (7-20) Creatinine 0.8 mg/dL (0.6-1.0) Estimated GFR (Cockcroft-Gault) 71.3 Glucose Level 239 mg/dL (70-99) Calcium Level 7.3 mg/dL (8.5-10.1) Total Bilirubin 0.4 mg/dL (0.2-1.0) Direct Bilirubin 0.3 mg/dL (0.0-0.2) Aspartate Amino Transf (AST/SGOT) 54 U/L (15-37) Alanine Aminotransferase (ALT/SGPT) 42 U/L (14-59) Alkaline Phosphatase 416 U/L (46-116) Total Protein 6.3 g/dL (6.4-8.2) Albumin 1.7 g/dL (3.4-5.0) O2 Saturation 95 % (92-99) Arterial Blood pH 7.46 (7.35-7.45) Arterial Blood pCO2 at Patient Temp 34 mmHg (35-46) Arterial Blood pO2 at Patient Temp 82 mmHg (65-108) Arterial Blood HCO3 24 mmol/L (21-28) Arterial Blood Base Excess 0 mmol/L (-3-3) FiO2 vapotherm 25 lpm Glucose (Fingerstick) 281 mg/dL (70-99) 309 mg/dL (70-99) Test 05/22/20 20:34 05/23/20 03:45 05/23/20 07:53 Glucose (Fingerstick) 371 mg/dL (70-99) 314 mg/dL (70-99) Creatinine 0.8 mg/dL (0.6-1.0) Estimated GFR (Cockcroft-Gault) 71.3 Laboratory Tests Test 05/22/20 11:21 05/22/20 17:02 05/22/20 20:34 05/23/20 03:45 Glucose (Fingerstick) 281 mg/dL (70-99) 309 mg/dL (70-99) 371 mg/dL (70-99) Creatinine 0.8 mg/dL (0.6-1.0) Estimated GFR (Cockcroft-Gault) 71.3 Test 05/23/20 07:53 Glucose (Fingerstick) 314 mg/dL (70-99) Medications Active Scripts Medications Dose Route/Sig Max Daily Dose Days Date Category Actos (Pioglitazone Hcl) 45 Mg Tablet 1 Tab PO DAILY 30 05/18/20 Reported Diclofenac Sodium 75 Mg Tablet.dr 1 Tab PO BID 05/18/20 Reported Klor-Con 10 (Potassium Chloride) 10 Meq Tablet.er 1 Tab PO DAILY 30 05/18/20 Reported Metformin Hcl 1,000 Mg Tablet 1,000 Mg PO BIDWMEALS 05/18/20 Reported Omeprazole 20 Mg Capsule.dr 1 Cap PO DAILY 05/18/20 Reported Lisinopril-Hctz 20-25 Mg Tab (Lisinopril/Hydrochlorothiazide) 1 Each Tablet 1 Tab PO DAILY 05/18/20 Reported Aspirin Ec (Aspirin) 81 Mg Tablet.dr 1 Tab PO DAILY 05/18/20 Reported Hydralazine Hcl 100 Mg Tablet 1 Tab PO BID 05/18/20 Reported Metoprolol Tartrate 50 Mg Tablet 1 Tab PO BID 05/18/20 Reported Rosuvastatin Calcium 10 Mg Tablet 10 Mg PO DAILY 05/18/20 Reported Comments CXR 05/23/2020 IMPRESSION: 1. Persistent infiltrates with little change. Impression . IMPRESSION: 1. Acute hypoxic respiratory failure, back on vapotherm 15 L and 100% 2. Abnormal chest x-ray with bilateral infiltrates-- no change in CXR reviewed 3. Fever 102, --improving 4. Hypoglycemic encephalopathy, resolved. 5. Severe protein-calorie malnutrition. 6. Mild azotemia. 7. SARS-CoV-2 negative x2 Plan . Supplemental oxygen to keep sats above 92%, back on vapotherm 15L and 100% , wean FI02 as tolerated continue ABX SARS-CoV-2 negative x2 DM per IM HTN per IM Fever- --Tylenol PRN PT/OT D/W RN CC time 30 minutes KING WHITTINGTON MD May 23, 2020 10:08
[2020-05-23] MEDS: POTASSIUM CHLORIDE 20 MEQ TABLET.ER. PO SCH ×3 (10:34→14:58)
[2020-05-23] MEDS: METOPROLOL TART IMMED RELEASE 50 MG TABLET. PO SCH ×2 (10:35→19:59)
[2020-05-23] MEDS: LISINOPRIL 20 MG TABLET PO SCH (10:36)
[2020-05-23] MEDS: STERILE WATER for RESP 1,000 ML BAG. INH PRN (16:26)
[2020-05-23] MEDS: ENOXAPARIN 40 MG/0.4 ML SYRINGE. SQ SCH (17:21)
[2020-05-23] MEDS: ATORVASTATIN CALCIUM 40 MG TABLET. PO SCH (19:59)
[2020-05-23] MEDS: guaiFENesin ORAL 200 MG/10 ML LIQUID. PO PRN (20:00)
[2020-05-24] VITALS (23 sets, daily range): BP systolic 125–176; BP diastolic 61–88
[2020-05-24] MEDS: ALBUTEROL SULFATE 2.5 MG/3 ML NEBU. NEB SCH ×6 (04:10→23:44)
[2020-05-24] MEDS: methylPREDNISolone SOD SUCC PF 125 MG/2 ML VIAL. IV SCH ×3 (05:23→22:21)
[2020-05-24] MEDS: IV NORMAL SALINE 1000ML BAG 1,000 ML IV SCH ×2 (05:23→18:31)
[2020-05-24] MEDS: PANTOPRAZOLE 40 MG TABLET.DR. PO SCH (05:23)
[2020-05-24 05:49] LABS: CREATININE 0.9 mg/dL (0.6-1.0); GFR 62.3
--- NOTE | 2020-05-24 08:33 | PDOC ---
PROGRESS NOTES Assessment Problems Medical Problems: (1) Altered mental status Status: Acute (2) Hypoglycemia Status: Acute (3) Hypothermia Status: Acute Encephalopathy due to hypoglycemia and hypothermia, no evidence of any acute stroke, the CT finding is not clinically relevant and does not merit any additional attention especially with her lack of symptoms and normal examination. Moreover, this would be expected in someone who has had hypertension and diabetes for several years. Ruled out for COVID, has pulmonary infiltrate Plan No additional neurological studies needed. I had signed off, but given critical illness, I will keep an eye on her with you Subjective No complaints Objective Vital Signs Date Time Temp Pulse Resp B/P (MAP) Pulse Ox O2 Delivery O2 Flow Rate FiO2 05/24/20 08:00 97 VAPOTHERM 14.0 05/24/20 07:15 98.5 84 148/71 (96) 98.5 05/24/20 06:00 23 Intake and Output 05/24/20 07:00 Intake Total 2230 ml Output Total 475 ml Balance 1755 ml Intake Oral 960 ml IV Total 1270 ml Output Urine Total 475 ml # Voids 5 # Bowel Movements 3 PHYSICAL EXAM Alert. Oriented to time, place and person. Speaks only Belgian. PERRL. EOMI. CN: no focal findings. Muscle tone: normal. Muscle strength: 5/5 DTR: 2+ Plantar reflex: flexor Gait: not examined in bed. Sensory exam: no abnormal findings. No cerebellar signs elicited. Review of Relevant I have reviewed the following items kavya (where applicable) has been applied. Labs Laboratory Tests Test 05/22/20 08:50 05/22/20 11:21 05/22/20 17:02 05/22/20 20:34 O2 Saturation 95 % (92-99) Arterial Blood pH 7.46 (7.35-7.45) Arterial Blood pCO2 at Patient Temp 34 mmHg (35-46) Arterial Blood pO2 at Patient Temp 82 mmHg (65-108) Arterial Blood HCO3 24 mmol/L (21-28) Arterial Blood Base Excess 0 mmol/L (-3-3) FiO2 vapotherm 25 lpm Glucose (Fingerstick) 281 mg/dL (70-99) 309 mg/dL (70-99) 371 mg/dL (70-99) Test 05/23/20 03:45 05/23/20 07:53 05/23/20 12:05 05/23/20 16:51 Creatinine 0.8 mg/dL (0.6-1.0) Estimated GFR (Cockcroft-Gault) 71.3 Glucose (Fingerstick) 314 mg/dL (70-99) 363 mg/dL (70-99) 379 mg/dL (70-99) Test 05/23/20 20:06 05/24/20 04:15 Glucose (Fingerstick) 374 mg/dL (70-99) Creatinine 0.9 mg/dL (0.6-1.0) Estimated GFR (Cockcroft-Gault) 62.3 Laboratory Tests Test 05/23/20 12:05 05/23/20 16:51 05/23/20 20:06 05/24/20 04:15 Glucose (Fingerstick) 363 mg/dL (70-99) 379 mg/dL (70-99) 374 mg/dL (70-99) Creatinine 0.9 mg/dL (0.6-1.0) Estimated GFR (Cockcroft-Gault) 62.3 Microbiology 05/18/20 Urine Culture - Final, Complete 05/18/20 Blood Culture - Final, Complete Medications Current Medications Sodium Chloride 1,000 ml @ 1,000 mls/hr 1X ONCE IV Last administered on 05/18/20at 09:29; Start 05/18/20 at 09:15; Stop 05/18/20 at 10:14; Status DC Ceftriaxone Sodium (Rocephin) 1 gm 1X ONCE IVP Last administered on 05/18/20at 09:28; Start 05/18/20 at 09:15; Stop 05/18/20 at 09:16; Status DC Ondansetron HCl (Zofran) 4 mg PRN Q8HRS PRN IV NAUSEA/VOMITING; Start 05/18/20 at 10:15; Stop 05/18/20 at 16:24; Status DC Acetaminophen (Tylenol) 650 mg PRN Q4HRS PRN PO FEVER > 100.3'F; Start 05/18/20 at 10:15; Stop 05/18/20 at 16:24; Status DC Ceftriaxone Sodium (Rocephin) 1 gm Q24H IVP Last administered on 05/23/20at 09:00; Start 05/19/20 at 09:00 Sodium Chloride (Normal Saline Flush) 3 ml QSHIFT PRN IV AFTER MEDS AND BLOOD DRAWS; Start 05/18/20 at 16:30 Sodium Chloride 1,000 ml @ 85 mls/hr [id number] IV Last administered on 05/24/20at 05:23; Start 05/18/20 at 16:20 Ondansetron HCl (Zofran) 4 mg PRN Q4HRS PRN IV NAUSEA/VOMITING; Start 05/18/20 at 16:30 Acetaminophen (Tylenol) 650 mg PRN Q4HRS PRN PO TEMP OVER 100.4F OR MILD PAIN Last administered on 05/21/20at 21:10; Start 05/18/20 at 16:30 Acetaminophen (Tylenol Supp) 650 mg PRN Q4HRS PRN OR TEMP OVER 100.4F OR MILD PAIN; Start 05/18/20 at 16:30 Sodium Monofluorophosphate (Fleet Adult) 133 ml PRN DAILY PRN OR CONSTIPATION; Start 05/18/20 at 16:30 Docusate Sodium (Colace) 100 mg PRN BID PRN PO HARD STOOLS; Start 05/18/20 at 16:30 Albuterol Sulfate (Ventolin Neb Soln) 2.5 mg PRN Q4HRS PRN NEB SHORTNESS OF BREATH Last administered on 05/21/20at 18:14; Start 05/18/20 at 16:30 Guaifenesin (Robitussin) 200 mg PRN Q4HRS PRN PO COUGH Last administered on 05/23/20at 20:00; Start 05/18/20 at 16:30 Enoxaparin Sodium (Lovenox 40mg Syringe) 40 mg Q24H SQ Last administered on 05/23/20at 17:21; Start 05/18/20 at 17:00 Aspirin (Ecotrin) 81 mg DAILY PO Last administered on 05/23/20at 08:59; Start 05/19/20 at 09:00 Metoprolol Tartrate (Lopressor) 50 mg BID PO Last administered on 05/21/20at 09:16; Start 05/19/20 at 09:00; Stop 05/21/20 at 15:45; Status DC Diclofenac Sodium (Voltaren) 75 mg BID PO Last administered on 05/23/20at 19:58; Start 05/19/20 at 10:00 Hydralazine HCl (Apresoline) 100 mg BID PO Last administered on 05/21/20 09:15; Start 05/19/20 at 09:00; Stop 05/21/20 at 15:45; Status DC Lisinopril (Prinivil) 20 mg DAILY PO Last administered on 05/21/20at 09:16; Start 05/19/20 at 10:00; Stop 05/21/20 at 15:45; Status DC Pantoprazole Sodium (Protonix) 40 mg DAILYAC PO Last administered on 05/24/20at 05:23; Start 05/19/20 at 10:00 Atorvastatin Calcium (Lipitor) 40 mg QHS PO Last administered on 05/23/20at 19:59; Start 05/19/20 at 21:00 Hydrochlorothiazide (Hydrodiuril) 25 mg DAILY PO Last administered on 05/23/20at 08:59; Start 05/19/20 at 10:00; Stop 05/23/20 at 10:22; Status DC Lactobacillus Rhamnosus (Culturelle) 1 cap BID PO Last administered on 05/23/20at 19:58; Start 05/19/20 at 21:00 Insulin Human Lispro (HumaLOG) 0-7 UNITS TIDWMEALS SQ Last administered on 05/23/20at 17:22; Start 05/19/20 at 17:00 Dextrose (Dextrose 50%-Water Syringe) 12.5 gm PRN Q15MIN PRN IV SEE COMMENTS; Start 05/19/20 at 14:15 Methimazole (Tapazole) 5 mg BID PO Last administered on 05/23/20at 19:58; Start 05/20/20 at 10:00 Insulin Glargine (Lantus Syringe) 5 unit DAILY SQ Last administered on 05/22/20at 09:15; Start 05/21/20 at 09:00; Stop 05/22/20 at 21:05; Status DC Doxycycline Hyclate (Vibra-Tab) 100 mg BID PO Last administered on 05/23/20at 19:58; Start 05/21/20 at 15:00 Furosemide (Lasix) 20 mg 1X ONCE IVP Last administered on 05/21/20at 17:05; Start 05/21/20 at 17:00; Stop 05/21/20 at 17:01; Status DC Sterile Water (WATER for RESP) 1,000 ml CONT PRN INH VIA VAPOTHERM DEVICE Last administered on 05/23/20at 16:26; Start 05/21/20 at 17:15 Albuterol Sulfate (Ventolin Neb Soln) 2.5 mg Q4HRS NEB Last administered on 05/24/20at 08:19; Start 05/21/20 at 20:00 Vancomycin HCl (Vanco Per Pharmacy) 1 each PRN DAILY PRN MC SEE COMMENTS Last administered on 05/23/20at 07:36; Start 05/22/20 at 09:00 Vancomycin HCl 2 gm/Sodium Chloride 500 ml @ 250 mls/hr 1X ONCE IV Last administered on 05/22/20at 09:05; Start 05/22/20 at 09:00; Stop 05/22/20 at 10:59; Status DC Vancomycin HCl 1.25 gm/Sodium Chloride 250 ml @ 167 mls/hr Q24H IV Last admi nistered on 05/23/20at 09:00; Start 05/23/20 at 09:00 Vancomycin HCl (Vancomycin Trough Level) 1 each 1X ONCE MC ; Start 05/24/20 at 08:30; Stop 05/24/20 at 08:31 Methylprednisolone Sodium Succinate (SOLU-Medrol 125MG VIAL) 80 mg Q8HRS IV Last administered on 05/24/20at 05:23; Start 05/22/20 at 14:00 Insulin Glargine (Lantus Syringe) 10 unit BID SQ Last administered on 05/23/20at 09:11; Start 05/22/20 at 21:00; Stop 05/23/20 at 20:17; Status DC Metoprolol Tartrate (Lopressor) 50 mg BID PO Last administered on 05/23/20at 19:59; Start 05/23/20 at 10:30 Hydrochlorothiazide (Microzide) 12.5 mg DAILY PO ; Start 05/24/20 at 09:00 Potassium Chloride (Klor-Con) 40 meq Q2H PO Last administered on 05/23/20at 14:58; Start 05/23/20 at 10:30; Stop 05/23/20 at 14:31; Status DC Lisinopril (Prinivil) 40 mg DAILY PO Last administered on 6/28/20at 10:36; Start 05/23/20 at 10:30 Hydralazine HCl (Apresoline) 100 mg BID PO Last administered on 05/23/20at 19:59; Start 05/23/20 at 10:30 Insulin Glargine (Lantus Syringe) 10 unit BID SQ Last administered on 05/23/20at 20:11; Start 05/23/20 at 21:00 Active Scripts Active Reported Actos (Pioglitazone Hcl) 45 Mg Tablet 1 Tab PO DAILY 30 Days Diclofenac Sodium 75 Mg Tablet.dr 1 Tab PO BID Klor-Con 10 (Potassium Chloride) 10 Meq Tablet.er 1 Tab PO DAILY 30 Days Metformin Hcl 1,000 Mg Tablet 1,000 Mg PO BIDWMEALS Omeprazole 20 Mg Capsule.dr 1 Cap PO DAILY Lisinopril-Hctz 20-25 Mg Tab (Lisinopril/Hydrochlorothiazide) 1 Each Tablet 1 Tab PO DAILY Aspirin Ec (Aspirin) 81 Mg Tablet.dr 1 Tab PO DAILY Hydralazine Hcl 100 Mg Tablet 1 Tab PO BID Metoprolol Tartrate 50 Mg Tablet 1 Tab PO BID Rosuvastatin Calcium 10 Mg Tablet 10 Mg PO DAILY Vitals/I & O Vital Sign - Last 24 Hours 05/23/20 05/23/20 05/23/20 05/23/20 08:45 09:45 10:35 10:36 Pulse 96 92 85 85 Resp 35 37 B/P (MAP) 156/63 (94) 165/73 (103) 165/73 165/73 Pulse Ox 96 96 O2 Delivery Nasal Cannula Nasal Cannula O2 Flow Rate 16.0 16.0 05/23/20 05/23/20 05/23/20 05/23/20 10:36 10:53 12:39 13:00 Temp 98.4 97.9 98.4 97.9 Pulse 85 85 87 Resp 33 22 B/P (MAP) 165/73 167/80 (109) 147/67 (93) Pulse Ox 95 95 98 O2 Delivery Nasal Cannula VAPOTHERM vapotherm O2 Flow Rate 16.0 16.0 16.0 05/23/20 05/23/20 05/23/20 05/23/20 15:00 16:00 16:55 17:00 Temp 98.9 97.9 97.9 98.9 97.9 97.9 Pulse 78 69 69 Resp 30 24 26 B/P (MAP) 141/61 (87) 149/68 (95) 156/78 (104) Pulse Ox 96 96 97 100 O2 Delivery vapotherm vapotherm VAPOTHERM vapotherm O2 Flow Rate 16.0 16.0 16.0 16.0 05/23/20 05/23/20 05/23/20 05/23/20 18:00 19:05 19:38 19:45 Temp 97.9 97.5 97.9 97.5 Pulse 85 75 Resp 24 20 B/P (MAP) 146/64 (91) 146/66 (92) Pulse Ox 97 99 100 O2 Delivery vapotherm vapotherm Nasal Cannula VAPOTHERM O2 Flow Rate 16.0 16.0 16.0 14.0 05/23/20 05/23/20 05/23/20 05/23/20 19:55 19:59 19:59 20:55 Temp 97.0 97.3 97.0 97.3 Pulse 72 72 72 69 Resp 21 23 B/P (MAP) 145/71 (95) 145/71 145/71 149/63 (91) Pulse Ox 97 93 O2 Delivery vapotherm vapotherm O2 Flow Rate 16.0 14.0 05/23/20 05/23/20 05/23/20 05/23/20 22:00 22:56 23:01 23:50 Temp 97.7 98.0 97.7 98.0 Pulse 64 62 Resp 22 20 B/P (MAP) 146/62 (90) 139/68 (91) Pulse Ox 98 97 100 O2 Delivery vapotherm Nasal Cannula vapotherm Nasal Cannula O2 Flow Rate 14.0 14.0 14.0 14.0 05/24/20 05/24/20 05/24/20 05/24/20 00:01 00:55 02:00 02:53 Pulse 57 60 66 66 Resp 24 22 24 23 B/P (MAP) 155/65 (95) 137/61 (86) 135/63 (87) 145/66 (92) Pulse Ox 99 96 95 96 O2 Delivery vapotherm vapotherm vapotherm vapotherm O2 Flow Rate 14.0 14.0 14.0 14.0 05/24/20 05/24/20 05/24/20 05/24/20 04:01 04:10 05:00 06:00 Temp 97.6 97.0 97.6 97.0 Pulse 58 63 55 Resp 24 24 23 B/P (MAP) 153/75 (101) 155/75 (101) 148/71 (96) Pulse Ox 95 95 93 95 O2 Delivery vapotherm VAPOTHERM vapotherm vapotherm O2 Flow Rate 14.0 14.0 14.0 14.0 05/24/20 05/24/20 07:15 08:00 Temp 98.5 98.5 Pulse 84 B/P (MAP) 148/71 (96) Pulse Ox 95 97 O2 Delivery Nasal Cannula VAPOTHERM O2 Flow Rate 14.0 14.0 Intake and Output 05/23/20 05/23/20 05/24/20 15:00 23:00 07:00 Intake Total 250 ml 1740 ml 240 ml Output Total 475 ml Balance 250 ml 1265 ml 240 ml Justicifation of Admission Dx: Justifications for Admission: Justification of Admission Dx: Yes Altered Mental Status: Altered Mental Status DARREL CASTRO MD May 24, 2020 08:33
[2020-05-24] MEDS: DOXYCYCLINE HYCLATE 100 MG TABLET PO SCH ×2 (09:07→21:16)
[2020-05-24] MEDS: ASPIRIN ENTERIC COATED 81 MG TABLET.DR. PO SCH (09:07)
[2020-05-24] MEDS: DICLOFENAC SODIUM 25 MG TABLET.DR PO SCH ×2 (09:08→21:13)
[2020-05-24] MEDS: methIMAzole 10 MG TABLET PO SCH ×2 (09:08→21:15)
[2020-05-24] MEDS: LISINOPRIL 20 MG TABLET PO SCH (09:08)
[2020-05-24] MEDS: hydroCHLOROthiazide 12.5 MG CAPSULE PO SCH (09:08)
[2020-05-24] MEDS: cefTRIAXone IV Push 1 GM VIAL. IVP SCH (09:09)
[2020-05-24] MEDS: METOPROLOL TART IMMED RELEASE 50 MG TABLET. PO SCH ×2 (09:09→21:15)
[2020-05-24] MEDS: LACTOBACILLUS RHAMNOSUS GG 1 CAPSULE. PO SCH ×2 (09:09→21:14)
[2020-05-24] MEDS: INSULIN LISPRO 300 UNITS/3 ML VIAL. SQ SCH ×3 (09:13→17:00)
[2020-05-24] MEDS: INSULIN GLARGINE SYRINGE. SQ SCH ×2 (09:14→21:17)
--- NOTE | 2020-05-24 09:15 | PDOC ---
PROGRESS NOTES Chief Complaint Chief Complaint ASSESSMENT Acute hypoxic respiratory failure secondary to multifocal infiltrate/pleural effusions FEVER BLOOD CULTURE Final GRAM POSITIVE COCCI IN CLUSTERS Hyperthyroidism likely Graves Dz Hypoglycemic encephalopathy, IMPROVING Severe protein-calorie malnutrition. DM2, a1c on admission 7% HTN PLAN repeat cxr: IMPRESSION: Slight interval increase in partially consolidated multifocal infiltrate and small left greater than right pleural effusions. IV VANC, PO DOXY sars cov 2 - x2 follow blood cultures supplemental 02 Continue empiric antibiotics. continue home BP meds T4 elevated, TSH low. check TSI. HR stable. already on BB therapy. start methimazole. refer to outpatient endocrine at discharge SSI. holding home diabetic meds. a1c only 7% dvt ppx apprec neuro and pulm consult ID PT/OT DENIES PAIN //ID CONSULT, PROCALCITONIN 33 MIN CC TIME History of Present Illness History of Present Illness feels better today. no fever today so far BLOOD CULTURE Final GRAM POSITIVE COCCI IN CLUSTERS THYROID SONO Vitals Vitals Vital Signs Date Time Temp Pulse Resp B/P (MAP) Pulse Ox O2 Delivery O2 Flow Rate FiO2 05/24/20 08:00 97 VAPOTHERM 14.0 05/24/20 07:15 98.5 84 148/71 (96) 98.5 05/24/20 06:00 23 Physical Exam General: Alert, Cooperative, No acute distress Heart: Regular rate, Normal S1, Normal S2, No murmurs Lungs: Clear Abdomen: Normal bowel sounds, Soft, No tenderness, No hepatosplenomegaly Labs LABS CT HEAD WO CONTRAST History: Reason: altered mental status Comparison: None. Technique: Noncontrast CT imaging was performed of the head. Exposure: One or more of the following individualized dose reduction techniques were utilized for this examination: 1. Automated exposure control 2. Adjustment of the mA and/or kV according to patient size 3. Use of iterative reconstruction technique. Findings: No intracranial hemorrhage. No mass effect. No hydrocephalus. Mild foci of decreased attenuation within the hemispheric white matter, most often due to chronic microvascular ischemia. Imaged orbits are unremarkable. Tiny left sphenoid fluid. Mastoid air cells are clear. No acute calvarial fracture. Impression: 1. No acute intracranial hemorrhage. 2. Hypoattenuation within the left external capsule, may relate to prior insult although age indeterminate. If persistent concern for acute ischemia, MRI can better evaluate. 3. Mild sequelae of chronic microvascular ischemia. Electronically signed by: Mikel Betancur DO (05/18/2020 9:25 AM) [id number] DICTATED and SIGNED BY: MIKEL BETANCUR DO DATE: 05/18/20924 AP chest. HISTORY: Short of breath AP view was taken of the chest. There are diffuse bilateral infiltrates. Heart is upper normal in size. There is a possible left effusion. IMPRESSION: 1. Persistent infiltrates with little change. Electronically signed by: Kody Almazan MD (05/23/2020 5:42 AM) [id number] DICTATED and SIGNED BY: KODY ALMAZAN MD Procedure Result BLOOD CULTURE Final GRAM POSITIVE COCCI IN CLUSTERS 1 SET DRAWN, 1 OF 2 POSITIVE CALLED TO EMANUEL MORGAN RN IN ICU BY Maite CAMPBELL, 05/22/20,0800 SPECIMEN SENDING TO [facility] FOR FURTHER WORK UP Laboratory Tests Test 05/23/20 12:05 05/23/20 16:51 05/23/20 20:06 05/24/20 04:15 Glucose (Fingerstick) 363 mg/dL (70-99) 379 mg/dL (70-99) 374 mg/dL (70-99) Creatinine 0.9 mg/dL (0.6-1.0) Estimated GFR (Cockcroft-Gault) 62.3 Test 05/24/20 08:38 Glucose (Fingerstick) 334 mg/dL (70-99) Assessment and Plan Assessmemt and Plan Problems Medical Problems: (1) Altered mental status Status: Acute (2) Hypoglycemia Status: Acute (3) Hypothermia Status: Acute Comment Review of Relevant I have reviewed the following items kavya (where applicable) has been applied. Labs Laboratory Tests Test 05/22/20 11:21 05/22/20 17:02 05/22/20 20:34 05/23/20 03:45 Glucose (Fingerstick) 281 mg/dL (70-99) 309 mg/dL (70-99) 371 mg/dL (70-99) Creatinine 0.8 mg/dL (0.6-1.0) Estimated GFR (Cockcroft-Gault) 71.3 Test 05/23/20 07:53 05/23/20 12:05 05/23/20 16:51 05/23/20 20:06 Glucose (Fingerstick) 314 mg/dL (70-99) 363 mg/dL (70-99) 379 mg/dL (70-99) 374 mg/dL (70-99) Test 05/24/20 04:15 05/24/20 08:38 Creatinine 0.9 mg/dL (0.6-1.0) Estimated GFR (Cockcroft-Gault) 62.3 Glucose (Fingerstick) 334 mg/dL (70-99) Laboratory Tests Test 05/23/20 12:05 05/23/20 16:51 05/23/20 20:06 05/24/20 04:15 Glucose (Fingerstick) 363 mg/dL (70-99) 379 mg/dL (70-99) 374 mg/dL (70-99) Creatinine 0.9 mg/dL (0.6-1.0) Estimated GFR (Cockcroft-Gault) 62.3 Test 05/24/20 08:38 Glucose (Fingerstick) 334 mg/dL (70-99) Microbiology 05/18/20 Urine Culture - Final, Complete 05/18/20 Blood Culture - Final, Complete Medications Current Medications Sodium Chloride 1,000 ml @ 1,000 mls/hr 1X ONCE IV Last administered on 05/18/20at 09:29; Start 05/18/20 at 09:15; Stop 05/18/20 at 10:14; Status DC Ceftriaxone Sodium (Rocephin) 1 gm 1X ONCE IVP Last administered on 05/18/20at 09:28; Start 05/18/20 at 09:15; Stop 05/18/20 at 09:16; Status DC Ondansetron HCl (Zofran) 4 mg PRN Q8HRS PRN IV NAUSEA/VOMITING; Start 05/18/20 at 10:15; Stop 05/18/20 at 16:24; Status DC Acetaminophen (Tylenol) 650 mg PRN Q4HRS PRN PO FEVER > 100.3'F; Start 05/18/20 at 10:15; Stop 05/18/20 at 16:24; Status DC Ceftriaxone Sodium (Rocephin) 1 gm Q24H IVP Last administered on 05/23/20at 09:00; Start 05/19/20 at 09:00 Sodium Chloride (Normal Saline Flush) 3 ml QSHIFT PRN IV AFTER MEDS AND BLOOD DRAWS; Start 05/18/20 at 16:30 Sodium Chloride 1,000 ml @ 85 mls/hr [id number] IV Last administered on 05/24/20at 05:23; Start 05/18/20 at 16:20 Ondansetron HCl (Zofran) 4 mg PRN Q4HRS PRN IV NAUSEA/VOMITING; Start 05/18/20 at 16:30 Acetaminophen (Tylenol) 650 mg PRN Q4HRS PRN PO TEMP OVER 100.4F OR MILD PAIN Last administered on 05/21/20at 21:10; Start 05/18/20 at 16:30 Acetaminophen (Tylenol Supp) 650 mg PRN Q4HRS PRN ND TEMP OVER 100.4F OR MILD PAIN; Start 05/18/20 at 16:30 Sodium Monofluorophosphate (Fleet Adult) 133 ml PRN DAILY PRN ND CONSTIPATION; Start 05/18/20 at 16:30 Docusate Sodium (Colace) 100 mg PRN BID PRN PO HARD STOOLS; Start 05/18/20 at 16:30 Albuterol Sulfate (Ventolin Neb Soln) 2.5 mg PRN Q4HRS PRN NEB SHORTNESS OF BREATH Last administered on 05/21/20at 18:14; Start 05/18/20 at 16:30 Guaifenesin (Robitussin) 200 mg PRN Q4HRS PRN PO COUGH Last administered on 05/23/20 20:00; Start 05/18/20 at 16:30 Enoxaparin Sodium (Lovenox 40mg Syringe) 40 mg Q24H SQ Last administered on 05/23/20 17:21; Start 05/18/20 at 17:00 Aspirin (Ecotrin) 81 mg DAILY PO Last administered on 05/23/20 08:59; Start 05/19/20 at 09:00 Metoprolol Tartrate (Lopressor) 50 mg BID PO Last administered on 05/21/20 09:16; Start 05/19/20 at 09:00; Stop 05/21/20 at 15:45; Status DC Diclofenac Sodium (Voltaren) 75 mg BID PO Last administered on 05/23/20 19:58; Start 05/19/20 at 10:00 Hydralazine HCl (Apresoline) 100 mg BID PO Last administered on 05/21/20 09:15; Start 05/19/20 at 09:00; Stop 05/21/20 at 15:45; Status DC Lisinopril (Prinivil) 20 mg DAILY PO Last administered on 05/21/20 09:16; Start 05/19/20 at 10:00; Stop 05/21/20 at 15:45; Status DC Pantoprazole Sodium (Protonix) 40 mg DAILYAC PO Last administered on 05/24/20 05:23; Start 05/19/20 at 10:00 Atorvastatin Calcium (Lipitor) 40 mg QHS PO Last administered on 05/23/20 19:59; Start 05/19/20 at 21:00 Hydrochlorothiazide (Hydrodiuril) 25 mg DAILY PO Last administered on 05/23/20 08:59; Start 05/19/20 at 10:00; Stop 05/23/20 at 10:22; Status DC Lactobacillus Rhamnosus (Culturelle) 1 cap BID PO Last administered on 6/28/20at 19:58; Start 05/19/20 at 21:00 Insulin Human Lispro (HumaLOG) 0-7 UNITS TIDWMEALS SQ Last administered on 05/23/20at 17:22; Start 05/19/20 at 17:00 Dextrose (Dextrose 50%-Water Syringe) 12.5 gm PRN Q15MIN PRN IV SEE COMMENTS; Start 05/19/20 at 14:15 Methimazole (Tapazole) 5 mg BID PO Last administered on 05/23/20at 19:58; Start 05/20/20 at 10:00 Insulin Glargine (Lantus Syringe) 5 unit DAILY SQ Last administered on 04/27 09:15; Start 05/21/20 at 09:00; Stop 05/22/20 at 21:05; Status DC Doxycycline Hyclate (Vibra-Tab) 100 mg BID PO Last administered on 05/23/20 19:58; Start 05/21/20 at 15:00 Furosemide (Lasix) 20 mg 1X ONCE IVP Last administered on 05/21/20at 17:05; Start 05/21/20 at 17:00; Stop 05/21/20 at 17:01; Status DC Sterile Water (WATER for RESP) 1,000 ml CONT PRN INH VIA VAPOTHERM DEVICE Last administered on 05/23/20 16:26; Start 05/21/20 at 17:15 Albuterol Sulfate (Ventolin Neb Soln) 2.5 mg Q4HRS NEB Last administered on 05/24/20at 08:19; Start 05/21/20 at 20:00 Vancomycin HCl (Vanco Per Pharmacy) 1 each PRN DAILY PRN MC SEE COMMENTS Last administered on 05/23/20at 07:36; Start 05/22/20 at 09:00 Vancomycin HCl 2 gm/Sodium Chloride 500 ml @ 250 mls/hr 1X ONCE IV Last administered on 05/22/20at 09:05; Start 05/22/20 at 09:00; Stop 05/22/20 at 10:59; Status DC Vancomycin HCl 1.25 gm/Sodium Chloride 250 ml @ 167 mls/hr Q24H IV Last administered on 05/23/20at 09:00; Start 05/23/20 at 09:00 Vancomycin HCl (Vancomycin Trough Level) 1 each 1X ONCE MC ; Start 05/24/20 at 08:30; Stop 05/24/20 at 08:31; Status DC Methylprednisolone Sodium Succinate (SOLU-Medrol 125MG VIAL) 80 mg Q8HRS IV Last administered on 05/24/20at 05:23; Start 05/22/20 at 14:00 Insulin Glargine (Lantus Syringe) 10 unit BID SQ Last administered on 05/23/20at 09:11; Start 05/22/20 at 21:00; Stop 05/23/20 at 20:17; Status DC Metoprolol Tartrate (Lopressor) 50 mg BID PO Last administered on 05/23/20at 19:59; Start 05/23/20 at 10:30 Hydrochlorothiazide (Microzide) 12.5 mg DAILY PO ; Start 05/24/20 at 09:00 Potassium Chloride (Klor-Con) 40 meq Q2H PO Last administered on 05/23/20at 14:58; Start 05/23/20 at 10:30; Stop 05/23/20 at 14:31; Status DC Lisinopril (Prinivil) 40 mg DAILY PO Last administered on 05/23/20at 10:36; Start 05/23/20 at 10:30 Hydralazine HCl (Apresoline) 100 mg BID PO Last administered on 05/23/20at 19:59; Start 05/23/20 at 10:30 Insulin Glargine (Lantus Syringe) 10 unit BID SQ Last administered on 05/23/20at 20:11; Start 05/23/20 at 21:00 Active Scripts Active Reported Actos (Pioglitazone Hcl) 45 Mg Tablet 1 Tab PO DAILY 30 Days Diclofenac Sodium 75 Mg Tablet.dr 1 Tab PO BID Klor-Con 10 (Potassium Chloride) 10 Meq Tablet.er 1 Tab PO DAILY 30 Days Metformin Hcl 1,000 Mg Tablet 1,000 Mg PO BIDWMEALS Omeprazole 20 Mg Capsule.dr 1 Cap PO DAILY Lisinopril-Hctz 20-25 Mg Tab (Lisinopril/Hydrochlorothiazide) 1 Each Tablet 1 Tab PO DAILY Aspirin Ec (Aspirin) 81 Mg Tablet.dr 1 Tab PO DAILY Hydralazine Hcl 100 Mg Tablet 1 Tab PO BID Metoprolol Tartrate 50 Mg Tablet 1 Tab PO BID Rosuvastatin Calcium 10 Mg Tablet 10 Mg PO DAILY Vitals/I & O Vital Sign - Last 24 Hours 05/23/20 05/23/20 05/23/20 05/23/20 09:45 10:35 10:36 10:36 Pulse 92 85 85 85 Resp 37 B/P (MAP) 165/73 (103) 165/73 165/73 165/73 Pulse Ox 96 O2 Delivery Nasal Cannula O2 Flow Rate 16.0 05/23/20 05/23/20 05/23/20 05/23/20 10:53 12:39 13:00 15:00 Temp 98.4 97.9 98.9 98.4 97.9 98.9 Pulse 85 87 78 Resp 33 22 30 B/P (MAP) 167/80 (109) 147/67 (93) 141/61 (87) Pulse Ox 95 95 98 96 O2 Delivery Nasal Cannula VAPOTHERM vapotherm vapotherm O2 Flow Rate 16.0 16.0 16.0 16.0 05/23/20 05/23/20 05/23/20 05/23/20 16:00 16:55 17:00 18:00 Temp 97.9 97.9 97.9 97.9 97.9 97.9 Pulse 69 69 85 Resp 24 26 24 B/P (MAP) 149/68 (95) 156/78 (104) 146/64 (91) Pulse Ox 96 97 100 97 O2 Delivery vapotherm VAPOTHERM vapotherm vapotherm O2 Flow Rate 16.0 16.0 16.0 16.0 05/23/20 05/23/20 05/23/20 05/23/20 19:05 19:38 19:45 19:55 Temp 97.5 97.0 97.5 97.0 Pulse 75 72 Resp 20 21 B/P (MAP) 146/66 (92) 145/71 (95) Pulse Ox 99 100 97 O2 Delivery vapotherm Nasal Cannula VAPOTHERM vapotherm O2 Flow Rate 16.0 16.0 14.0 16.0 05/23/20 05/23/20 05/23/20 05/23/20 19:59 19:59 20:55 22:00 Temp 97.3 97.7 97.3 97.7 Pulse 72 72 69 64 Resp 23 22 B/P (MAP) 145/71 145/71 149/63 (91) 146/62 (90) Pulse Ox 93 98 O2 Delivery vapotherm vapotherm O2 Flow Rate 14.0 14.0 05/23/20 05/23/20 05/23/20 05/24/20 22:56 23:01 23:50 00:01 Temp 98.0 98.0 Pulse 62 57 Resp 20 24 B/P (MAP) 139/68 (91) 155/65 (95) Pulse Ox 97 100 99 O2 Delivery Nasal Cannula vapotherm Nasal Cannula vapotherm O2 Flow Rate 14.0 14.0 14.0 14.0 05/24/20 05/24/20 05/24/20 05/24/20 00:55 02:00 02:53 04:01 Pulse 60 66 66 58 Resp 22 24 23 24 B/P (MAP) 137/61 (86) 135/63 (87) 145/66 (92) 153/75 (101) Pulse Ox 96 95 96 95 O2 Delivery vapotherm vapotherm vapotherm vapotherm O2 Flow Rate 14.0 14.0 14.0 14.0 05/24/20 05/24/20 05/24/20 05/24/20 04:10 05:00 06:00 07:15 Temp 97.6 97.0 98.5 97.6 97.0 98.5 Pulse 63 55 84 Resp 24 23 B/P (MAP) 155/75 (101) 148/71 (96) 148/71 (96) Pulse Ox 95 93 95 95 O2 Delivery VAPOTHERM vapotherm vapotherm Nasal Cannula O2 Flow Rate 14.0 14.0 14.0 14.0 05/24/20 08:00 Pulse Ox 97 O2 Delivery VAPOTHERM O2 Flow Rate 14.0 Intake and Output 05/23/20 05/23/20 05/24/20 15:00 23:00 07:00 Intake Total 250 ml 1740 ml 240 ml Output Total 475 ml Balance 250 ml 1265 ml 240 ml SHIVA GILLILAND MD May 24, 2020 09:15
[2020-05-24 09:49] LABS: VANC TR 6.6 mcg/mL (10.0-20.0)
[2020-05-24] MEDS: VANCOMYCIN PER PHARMACY MC PRN ×2 (10:17→10:26)
[2020-05-24] MEDS: VANCOMYCIN 1.25 GM in IV NORMAL SALINE 250ML 250 ML IV SCH ×2 (10:22→22:30)
--- NOTE | 2020-05-24 10:26 | NUR ---
Pharmacy Vancomycin Dosing Note S:Consulted to monitor and dose vancomycin started 05/22/20. O:DANDRE ROCKWELL is a 70 year old F with Bacteremia . Height: 5 feet, 0 inches Weight: 86.0 kg Lindsay Body Weight: 183.50 Adjusted Body Weight: 144.50 Dosing Weight: Actual Other Antibiotics: ceftriaxone 1 gm q24h LABS: Last BUN: 19 Last Creatinine: 0.9 Creatinine Clearance: 52 mL/min Last WBC: 12.5 Last Procalcitonin: -- Tmax (past 24 hours): 98.5 Microbiology: 05/18: blood cx: gram positive cocci in clusers (1/2 bottles) 05/18: urine cx: No growth final I/O: 2230/ -- (5 voids) Drug Levels: Last Trough level: 6.6 on 05/24/20 at 0840 Last dose given 05/23/20 at 0905 Vancomycin Dosing: Loading Dose: 2000 mg x1 Dosing Weight: Actual Target Trough: 15-20 A: Based on: LOW TROUGH, P: 1. INITIATE NEW DOSE OF Vancomycin 1250 mg IV q12h 2. Follow up Trough level on 05/25/20 at 2200 3. Pharmacy will continue to monitor, follow and adjust therapy as needed. [facility], 05/24/20 [id number]
--- NOTE | 2020-05-24 11:15 | NUR ---
SS following up with discharge planning. SS reviewed pt chart and discussed with pt RN. Pt transferred to ICU for respiratory needs. Pt on Vapotherm. Pt is from home and is currently on IV Vancomycin and Rocephin. PT/OT had recommended home independent. Pt COVID19 negative. SS will continue to follow for discharge planning.
--- NOTE | 2020-05-24 12:20 | PDOC ---
PULMONARY PROGRESS NOTES Subjective Patient feels better cough minimally productive Vitals Vital Signs Date Time Temp Pulse Resp B/P (MAP) Pulse Ox O2 Delivery O2 Flow Rate FiO2 05/24/20 11:00 80 165/79 (107) 100 Nasal Cannula 14.0 05/24/20 09:22 98.2 17 98.2 ROS: No Nausea, No Chest Pain, No Abdominal Pain, No Increase Cough General: Alert, Oriented X4 Lungs: Clear Cardiovascular: S1, S2 Abdomen: Soft Neuro Exam: Alert Extremities: Other (+1 BLE edema and +@ RUE ) Skin: Warm Labs Laboratory Tests Test 05/22/20 17:02 05/22/20 20:34 05/23/20 03:45 05/23/20 07:53 Glucose (Fingerstick) 309 mg/dL (70-99) 371 mg/dL (70-99) 314 mg/dL (70-99) Creatinine 0.8 mg/dL (0.6-1.0) Estimated GFR (Cockcroft-Gault) 71.3 Test 05/23/20 12:05 05/23/20 16:51 05/23/20 20:06 05/24/20 04:15 Glucose (Fingerstick) 363 mg/dL (70-99) 379 mg/dL (70-99) 374 mg/dL (70-99) Creatinine 0.9 mg/dL (0.6-1.0) Estimated GFR (Cockcroft-Gault) 62.3 Test 05/24/20 08:38 05/24/20 08:40 Glucose (Fingerstick) 334 mg/dL (70-99) Vancomycin Level Trough 6.6 mcg/mL (10.0-20.0) Vancomycin Last Dose Date 05/23/20 Vancomycin Last Dose Time 0900 Laboratory Tests Test 05/23/20 16:51 05/23/20 20:06 05/24/20 04:15 05/24/20 08:38 Glucose (Fingerstick) 379 mg/dL (70-99) 374 mg/dL (70-99) 334 mg/dL (70-99) Creatinine 0.9 mg/dL (0.6-1.0) Estimated GFR (Cockcroft-Gault) 62.3 Test 05/24/20 08:40 Vancomycin Level Trough 6.6 mcg/mL (10.0-20.0) Vancomycin Last Dose Date 05/23/20 Vancomycin Last Dose Time 0900 Medications Active Scripts Medications Dose Route/Sig Max Daily Dose Days Date Category Actos (Pioglitazone Hcl) 45 Mg Tablet 1 Tab PO DAILY 30 05/18/20 Reported Diclofenac Sodium 75 Mg Tablet.dr 1 Tab PO BID 05/18/20 Reported Klor-Con 10 (Potassium Chloride) 10 Meq Tablet.er 1 Tab PO DAILY 30 05/18/20 Reported Metformin Hcl 1,000 Mg Tablet 1,000 Mg PO BIDWMEALS 05/18/20 Reported Omeprazole 20 Mg Capsule.dr 1 Cap PO DAILY 05/18/20 Reported Lisinopril-Hctz 20-25 Mg Tab (Lisinopril/Hydrochlorothiazide) 1 Each Tablet 1 Tab PO DAILY 05/18/20 Reported Aspirin Ec (Aspirin) 81 Mg Tablet.dr 1 Tab PO DAILY 05/18/20 Reported Hydralazine Hcl 100 Mg Tablet 1 Tab PO BID 05/18/20 Reported Metoprolol Tartrate 50 Mg Tablet 1 Tab PO BID 05/18/20 Reported Rosuvastatin Calcium 10 Mg Tablet 10 Mg PO DAILY 05/18/20 Reported Comments CXR 05/23/2020 IMPRESSION: 1. Persistent infiltrates with little change. Impression . IMPRESSION: 1. Acute hypoxic respiratory failure 2. Abnormal chest x-ray with bilateral infiltrates- 3. Fever, improved 4. Hypoglycemic encephalopathy, resolved. 5. Severe protein-calorie malnutrition. 6. Mild azotemia. 7. SARS-CoV-2 negative x2 Plan . Spoke with RT, trial of nasal cannula oxygen Transfer out of the intensive care unit continue ABX SARS-CoV-2 negative x2 DM per IM HTN per IM Fever- --Tylenol PRN PT/OT D/W RN CC time 30 minutes KING WHITTINGTON MD May 24, 2020 12:20
--- NOTE | 2020-05-24 12:26 | PDOC ---
Provider Note Provider Note Pt seen and examined ID consult dictated [id number] Thank you Justicifation of Admission Dx: Justifications for Admission: Justification of Admission Dx: Yes Altered Mental Status: Altered Mental Status MARYBETH REDMOND MD May 24, 2020 12:26
--- NOTE | 2020-05-24 12:55 | CONS ---
DATE OF CONSULTATION: REFERRING PHYSICIAN: Dr. Merlos. REASON FOR CONSULTATION: Pneumonia. HISTORY OF PRESENT ILLNESS: A 70-year-old female who does not speak Korean was brought to the ER on 05/18/2020 secondary to being unresponsive. Blood sugar was found around 17. Due to language barrier, I am not able to obtain much history from the patient. The patient also had hypothermia, hypoglycemia. Subsequently, the patient felt well. Neurology had evaluated the patient. The patient earlier was on 2 liters of oxygen by nasal cannula. T-max was 102.7. COVID-19 was suspected due to acute hypoxic respiratory failure with abnormal chest x-ray showing bilateral infiltrates. COVID was negative x 2. Pulmonary was consulted. The patient has been on ceftriaxone and doxycycline. Blood cultures returned positive for gram-positive cocci in clusters. The patient was started on IV vancomycin. ID consult has been requested for further assistance. The patient remains on Vapotherm, 100% FiO2, remains afebrile. Says has some shortness of breath, but no worsening. No increase in cough. No headache, sore throat, nausea, vomiting, diarrhea, abdominal pain. Does have swelling in both upper and lower extremity. PAST MEDICAL HISTORY: Diabetes, hypertension. PAST SURGICAL HISTORY: None. ALLERGIES: None. SOCIAL HISTORY: Nonsmoker. CURRENT MEDICATION: IV vancomycin, Rocephin and doxycycline. REVIEW OF SYSTEMS: Limited, but negative except for above. PHYSICAL EXAMINATION: VITAL SIGNS: Temperature 98.2, pulse 80, respiratory rate 17, blood pressure 165/79, oxygen saturation 100% FiO2 with 14 liters. HEENT: Anicteric. Pupils equal, reactive, on high flow oxygen. NECK: Supple. LUNGS: Clear. HEART: S1, S2. ABDOMEN: Soft, bowel sounds present, nontender, nondistended. EXTREMITIES: Bilateral lower and upper extremity edema. DERMATOLOGIC: Warm, dry. No generalized rash. NEUROLOGIC: Alert and oriented x 3, grossly nonfocal. PSYCHIATRIC: Cooperative. LABORATORY DATA: WBC 12.5, hemoglobin 8.1, hematocrit 24.2, platelets 263. Creatinine 0.9. Last CMP noted, AST 54, ALT 42, alkaline phosphatase 416, total bilirubin 0.4, total protein 6.3. COVID-19 negative on 05/18/2020 and 05/19/2020. IMAGING: Chest x-ray, persistent infiltrates with little change. IMPRESSION: 1. Acute hypoxic respiratory failure secondary to highly suspected COVID-19 pneumonia. COVID-19 negative on 05/18/2020 and 05/19/2020. 2. Fever on admission, again reported last night per team, 3. Leukocytosis, on steroids. 4. Hypoglycemic encephalopathy, resolved. 5. Diabetes. 6. Hypertension. 7. Severe protein-calorie malnutrition. 8. Gram-positive cocci bacteremia, 05/18/2020, 1 out of 2 bottles, ID and NELDA still pending at this time, could be a contaminant. RECOMMENDATIONS: 1. Continue empiric IV vancomycin. 2. Change ceftriaxone to Zosyn. 3. Continue empiric doxycycline. 4. Follow up GPC in blood cultures. 5. Continue supportive care. Discussed with RN Thank you for allowing me to participate in this patient's care. If you have any questions, do not hesitate to contact me. MARYBETH REDMOND MD DR: KIRSTEN/enedina JOB#: [id number] / [id number] GRAYSON
[2020-05-24] MEDS ORDERED: INSULIN LISPRO 300 UNITS/3 ML VIAL. SQ ONE ×2 (17:30→22:00)
[2020-05-24] MEDS: ENOXAPARIN 40 MG/0.4 ML SYRINGE. SQ SCH (17:58)
[2020-05-24] MEDS: PIPERACILLIN/TAZOBACTAM 3.375 GM in IV NORMAL SALINE 50ML 50 ML IV SCH (18:31)
--- NOTE | 2020-05-24 20:05 | RAD ---
Neck soft tissue ultrasound HISTORY: Thyroid nodule. FINDINGS: Right thyroid lobe measures 5.4 x 3.0 x 2.6 cm. Left thyroid lobe measures 4.4 x 2.6 x 2.2 cm. Isthmus thickness 1.1 cm. Right thyroid lobe 0.5 cm wider than tall solid and cystic anechoic nodule per ACR criteria this is TI RADS 1, benign. No additional thyroid nodules. No thyroid calcifications. IMPRESSION: No suspicious abnormality. See above. Electronically signed by: Rylan Licea MD (05/24/2020 8:02 PM) [facility]
[2020-05-24] MEDS ORDERED: INSULIN GLARGINE SYRINGE. SQ SCH (21:00)
[2020-05-24] MEDS: ATORVASTATIN CALCIUM 40 MG TABLET. PO SCH (21:14)
[2020-05-24] MEDS ORDERED: INSULIN LISPRO 300 UNITS/3 ML VIAL. SQ SCH (21:30)
[2020-05-25] VITALS (21 sets, daily range): BP systolic 86–203; BP diastolic 58–86
[2020-05-25] MEDS: PIPERACILLIN/TAZOBACTAM 3.375 GM in IV NORMAL SALINE 50ML 50 ML IV SCH ×4 (00:26→17:23)
[2020-05-25] MEDS: methylPREDNISolone SOD SUCC PF 125 MG/2 ML VIAL. IV SCH ×3 (06:11→22:21)
--- NOTE | 2020-05-25 08:08 | PDOC ---
PULMONARY PROGRESS NOTES Subjective Patient feels better cough minimally productive Vitals Vital Signs Date Time Temp Pulse Resp B/P (MAP) Pulse Ox O2 Delivery O2 Flow Rate FiO2 05/25/20 07:00 97.8 54 168/78 (108) 95 Nasal Cannula 5.0 97.8 05/25/20 06:00 24 ROS: No Nausea, No Chest Pain, No Abdominal Pain, No Increase Cough General: Alert, Oriented X4 Lungs: Clear Cardiovascular: S1, S2 Abdomen: Soft Neuro Exam: Alert Extremities: Other (+1 BLE edema and +@ RUE ) Skin: Warm Labs Laboratory Tests Test 05/23/20 12:05 05/23/20 16:51 05/23/20 20:06 05/24/20 04:15 Glucose (Fingerstick) 363 mg/dL (70-99) 379 mg/dL (70-99) 374 mg/dL (70-99) Creatinine 0.9 mg/dL (0.6-1.0) Estimated GFR (Cockcroft-Gault) 62.3 Test 05/24/20 08:38 05/24/20 08:40 05/24/20 12:16 05/24/20 17:21 Glucose (Fingerstick) 334 mg/dL (70-99) 315 mg/dL (70-99) 398 mg/dL (70-99) Procalcitonin 0.36 ng/mL (0.00-0.10) Vancomycin Level Trough 6.6 mcg/mL (10.0-20.0) Vancomycin Last Dose Date 05/23/20 Vancomycin Last Dose Time 0900 Test 05/24/20 21:10 05/24/20 22:33 05/25/20 07:18 Glucose (Fingerstick) 411 mg/dL (70-99) 348 mg/dL (70-99) 293 mg/dL (70-99) Laboratory Tests Test 05/24/20 08:38 05/24/20 08:40 05/24/20 12:16 05/24/20 17:21 Glucose (Fingerstick) 334 mg/dL (70-99) 315 mg/dL (70-99) 398 mg/dL (70-99) Procalcitonin 0.36 ng/mL (0.00-0.10) Vancomycin Level Trough 6.6 mcg/mL (10.0-20.0) Vancomycin Last Dose Date 05/23/20 Vancomycin Last Dose Time 0900 Test 05/24/20 21:10 05/24/20 22:33 05/25/20 07:18 Glucose (Fingerstick) 411 mg/dL (70-99) 348 mg/dL (70-99) 293 mg/dL (70-99) Medications Active Scripts Medications Dose Route/Sig Max Daily Dose Days Date Category Actos (Pioglitazone Hcl) 45 Mg Tablet 1 Tab PO DAILY 30 05/18/20 Reported Diclofenac Sodium 75 Mg Tablet.dr 1 Tab PO BID 05/18/20 Reported Klor-Con 10 (Potassium Chloride) 10 Meq Tablet.er 1 Tab PO DAILY 30 05/18/20 Reported Metformin Hcl 1,000 Mg Tablet 1,000 Mg PO BIDWMEALS 05/18/20 Reported Omeprazole 20 Mg Capsule.dr 1 Cap PO DAILY 05/18/20 Reported Lisinopril-Hctz 20-25 Mg Tab (Lisinopril/Hydrochlorothiazide) 1 Each Tablet 1 Tab PO DAILY 05/18/20 Reported Aspirin Ec (Aspirin) 81 Mg Tablet.dr 1 Tab PO DAILY 05/18/20 Reported Hydralazine Hcl 100 Mg Tablet 1 Tab PO BID 05/18/20 Reported Metoprolol Tartrate 50 Mg Tablet 1 Tab PO BID 05/18/20 Reported Rosuvastatin Calcium 10 Mg Tablet 10 Mg PO DAILY 05/18/20 Reported Comments CXR 05/23/2020 IMPRESSION: 1. Persistent infiltrates with little change. Impression . IMPRESSION: 1. Acute hypoxic respiratory failure 2. Abnormal chest x-ray with bilateral infiltrates- 3. Fever, improved 4. Hypoglycemic encephalopathy, resolved. 5. Severe protein-calorie malnutrition. 6. Mild azotemia. 7. SARS-CoV-2 negative x2 Plan . Patient respiratory status is compensated see below Transfer out of the intensive care unit continue ABX SARS-CoV-2 negative x2 DM per IM HTN per IM Fever- --Tylenol PRN PT/OT D/W RN CC time 30 minutes KING WHITTINGTON MD May 25, 2020 08:08
[2020-05-25] MEDS: LISINOPRIL 20 MG TABLET PO SCH (08:14)
[2020-05-25] MEDS: DICLOFENAC SODIUM 25 MG TABLET.DR PO SCH (08:14)
[2020-05-25] MEDS: ASPIRIN ENTERIC COATED 81 MG TABLET.DR. PO SCH (08:15)
[2020-05-25] MEDS: methIMAzole 10 MG TABLET PO SCH (08:15)
[2020-05-25] MEDS: hydroCHLOROthiazide 12.5 MG CAPSULE PO SCH (08:15)
[2020-05-25] MEDS: DOXYCYCLINE HYCLATE 100 MG TABLET PO SCH ×2 (08:16→22:17)
[2020-05-25] MEDS: LACTOBACILLUS RHAMNOSUS GG 1 CAPSULE. PO SCH ×2 (08:16→22:17)
[2020-05-25] MEDS: METOPROLOL TART IMMED RELEASE 50 MG TABLET. PO SCH ×2 (08:16→22:19)
[2020-05-25] MEDS: PANTOPRAZOLE 40 MG TABLET.DR. PO SCH (08:16)
[2020-05-25] MEDS: INSULIN LISPRO 300 UNITS/3 ML VIAL. SQ SCH ×3 (08:19→17:16)
[2020-05-25] MEDS: INSULIN GLARGINE SYRINGE. SQ SCH (08:19)
--- NOTE | 2020-05-25 08:22 | PDOC ---
Infectious Disease Note Subjective: Subjective Pt feels better on Nasal O2 cough and sob improving no fevers,n/v/d d/w rn Vital Signs: Vital Signs Vital Signs Date Time Temp Pulse Resp B/P (MAP) Pulse Ox O2 Delivery O2 Flow Rate FiO2 05/25/20 08:16 54 168/78 05/25/20 07:00 97.8 95 Nasal Cannula 5.0 97.8 05/25/20 06:00 24 Physical Exam: PHYSICAL EXAM HEENT: Anicteric. Pupils equal, reactive, on high flow oxygen. NECK: Supple. LUNGS: Clear. HEART: S1, S2. ABDOMEN: Soft, bowel sounds present, nontender, nondistended. EXTREMITIES: Bilateral lower and upper extremity edema. DERMATOLOGIC: Warm, dry. No generalized rash. NEUROLOGIC: Alert and oriented x 3, grossly nonfocal. PSYCHIATRIC: Cooperative. Medications: Inpatient Meds: Current Medications Medications (Trade) Dose Ordered Sig/Nini Start Time Stop Time Status Last Admin Dose Admin Acetaminophen (Tylenol Supp) 650 mg PRN Q4HRS PRN 05/18/20 16:30 Acetaminophen (Tylenol) 650 mg PRN Q4HRS PRN 05/18/20 16:30 05/21/20 21:10 650 MG Albuterol Sulfate (Ventolin Neb Soln) 2.5 mg Q4HRS 05/21/20 20:00 05/24/20 23:44 2.5 MG Aspirin (Ecotrin) 81 mg DAILY 05/19/20 09:00 05/25/20 08:15 81 MG Atorvastatin Calcium (Lipitor) 40 mg QHS 05/19/20 21:00 05/24/20 21:14 40 MG Ceftriaxone Sodium (Rocephin) 1 gm Q24H 05/19/20 09:00 05/24/20 18:10 DC 05/24/20 09:09 1 GM Dextrose (Dextrose 50%-Water Syringe) 12.5 gm PRN Q15MIN PRN 05/19/20 14:15 Diclofenac Sodium (Voltaren) 75 mg BID 05/19/20 10:00 05/25/20 08:14 75 MG Docusate Sodium (Colace) 100 mg PRN BID PRN 05/18/20 16:30 Doxycycline Hyclate (Vibra-Tab) 100 mg BID 05/21/20 15:00 05/25/20 08:16 100 MG Enoxaparin Sodium (Lovenox 40mg Syringe) 40 mg Q24H 05/18/20 17:00 05/24/20 17:58 40 MG Furosemide (Lasix) 20 mg 1X ONCE 05/21/20 17:00 05/21/20 17:01 DC 05/21/20 17:05 20 MG Guaifenesin (Robitussin) 200 mg PRN Q4HRS PRN 05/18/20 16:30 05/23/20 20:00 200 MG Hydralazine HCl (Apresoline) 100 mg BID 05/23/20 10:30 05/25/20 08:15 100 MG Hydrochlorothiazide (Hydrodiuril) 25 mg DAILY 05/19/20 10:00 05/23/20 10:22 DC 05/23/20 08:59 25 MG Hydrochlorothiazide (Microzide) 12.5 mg DAILY 05/24/20 09:00 05/25/20 08:15 12.5 MG Insulin Glargine (Lantus Syringe) 15 unit BID 05/24/20 21:00 05/25/20 08:19 15 UNIT Insulin Human Lispro (HumaLOG) 11 units 1X ONCE 05/24/20 22:00 05/24/20 22:01 DC 05/24/20 22:25 11 UNITS Lactobacillus Rhamnosus (Culturelle) 1 cap BID 05/19/20 21:00 05/25/20 08:16 1 CAP Lisinopril (Prinivil) 40 mg DAILY 05/23/20 10:30 05/25/20 08:14 40 MG Methimazole (Tapazole) 5 mg BID 05/20/20 10:00 05/25/20 08:15 5 MG Methylprednisolone Sodium Succinate (SOLU-Medrol 125MG VIAL) 80 mg Q8HRS 05/22/20 14:00 05/25/20 06:11 80 MG Metoprolol Tartrate (Lopressor) 50 mg BID 05/23/20 10:30 05/25/20 08:16 50 MG Ondansetron HCl (Zofran) 4 mg PRN Q4HRS PRN 05/18/20 16:30 Pantoprazole Sodium (Protonix) 40 mg DAILYAC 05/19/20 10:00 05/25/20 08:16 40 MG Piperacillin Sod/ Tazobactam Sod 3.375 gm/Sodium Chloride 50 ml @ 100 mls/hr Q6HRS 05/24/20 18:30 05/25/20 06:21 100 MLS/HR Potassium Chloride (Klor-Con) 40 meq Q2H 05/23/20 10:30 05/23/20 14:31 DC 05/23/20 14:58 40 MEQ Sodium Monofluorophosphate (Fleet Adult) 133 ml PRN DAILY PRN 05/18/20 16:30 Sodium Chloride 1,000 ml @ 85 mls/hr [id number] 05/18/20 16:20 05/24/20 18:31 85 MLS/HR Sodium Chloride (Normal Saline Flush) 3 ml QSHIFT PRN 05/18/20 16:30 Sterile Water (WATER for RESP) 1,000 ml CONT PRN 05/21/20 17:15 05/23/20 16:26 1,000 ML Vancomycin HCl (Vanco Per Pharmacy) 1 each PRN DAILY PRN 05/22/20 09:00 05/24/20 10:26 1 EACH Vancomycin HCl (Vancomycin Trough Level) 1 each 1X ONCE 05/25/20 22:00 05/25/20 22:01 Vancomycin HCl 1.25 gm/Sodium Chloride 250 ml @ 167 mls/hr Q12H 05/24/20 10:30 05/24/20 22:30 167 MLS/HR Vancomycin HCl 2 gm/Sodium Chloride 500 ml @ 250 mls/hr 1X ONCE 05/22/20 09:00 05/22/20 10:59 DC 05/22/20 09:05 250 MLS/HR Labs: Lab Laboratory Tests Test 05/24/20 08:38 05/24/20 08:40 05/24/20 12:16 05/24/20 17:21 Glucose (Fingerstick) 334 mg/dL (70-99) 315 mg/dL (70-99) 398 mg/dL (70-99) Procalcitonin 0.36 ng/mL (0.00-0.10) Vancomycin Level Trough 6.6 mcg/mL (10.0-20.0) Vancomycin Last Dose Date 05/23/20 Vancomycin Last Dose Time 0900 Test 05/24/20 21:10 05/24/20 22:33 05/25/20 07:18 Glucose (Fingerstick) 411 mg/dL (70-99) 348 mg/dL (70-99) 293 mg/dL (70-99) Objective: Assessment: 1. Acute hypoxic respiratory failure secondary to highly suspected COVID-19 pneumonia. COVID-19 negative on 05/18/2020 and 05/19/2020. 2. Fever on admission, again reported last night per team, now resolved 3. Leukocytosis, on steroids. 4. Hypoglycemic encephalopathy, resolved. 5. Diabetes. 6. Hypertension. 7. Severe protein-calorie malnutrition. 8. Gram-positive cocci bacteremia, 05/18/2020, 1 out of 2 bottles, ID and NELDA still pending at this time, could be a contaminant. 9. CHF Plan: Plan of Care : 1. Continue empiric IV vancomycin.Monitor renal func closely 2. Cont Zosyn. 3. Continue empiric doxycycline. 4. Follow up GPC in blood cultures. 5. sputum for cult 6. Continue supportive care MARYBETH REDMOND MD May 25, 2020 08:22
[2020-05-25] MEDS: ALBUTEROL SULFATE 2.5 MG/3 ML NEBU. NEB SCH ×5 (08:36→20:26)
--- NOTE | 2020-05-25 09:22 | PDOC ---
PROGRESS NOTES Chief Complaint Chief Complaint ASSESSMENT Acute hypoxic respiratory failure secondary to multifocal infiltrate/pleural effusions FEVER BLOOD CULTURE Final GRAM POSITIVE COCCI IN CLUSTERS Hyperthyroidism likely Graves Dz Hypoglycemic encephalopathy, IMPROVING Severe protein-calorie malnutrition. DM2, a1c on admission 7%, uncontrolled, insulin adjusted HTN PLAN repeat cxr: IMPRESSION: Slight interval increase in partially consolidated multifocal infiltrate and small left greater than right pleural effusions. IV VANC, PO DOXY sars cov 2 - x2 follow blood cultures supplemental 02 Continue empiric antibiotics. continue home BP meds T4 elevated, TSH low. check TSI. HR stable. already on BB therapy. start methimazole. refer to outpatient endocrine at discharge No suspicious abnormality. on thyroid sono 05/24 SSI. holding home diabetic meds. a1c only 7% dvt ppx apprec neuro and pulm consult ID PT/OT 05/25 DENIES PAIN //ID CONSULT, PROCALCITONIN=.[phone] MIN CC TIME History of Present Illness History of Present Illness feels better today. no fever today so far BLOOD CULTURE Final GRAM POSITIVE COCCI IN CLUSTERS Gram-positive cocci bacteremia, 05/18/2020, 1 out of 2 bottles, ID and NELDA pending ? contaminant. THYROID SONO Vitals Vitals Vital Signs Date Time Temp Pulse Resp B/P (MAP) Pulse Ox O2 Delivery O2 Flow Rate FiO2 05/25/20 08:39 96 Nasal Cannula 5.0 05/25/20 08:16 54 168/78 05/25/20 07:00 97.8 97.8 05/25/20 06:00 24 Physical Exam Physical Exam HEENT: Anicteric. Pupils equal, reactive, on high flow oxygen. NECK: Supple. LUNGS: Clear. HEART: S1, S2. ABDOMEN: Soft, bowel sounds present, nontender, nondistended. EXTREMITIES: Bilateral lower and upper extremity edema. DERMATOLOGIC: Warm, dry. No generalized rash. NEUROLOGIC: Alert and oriented x 3, grossly nonfocal. PSYCHIATRIC: Cooperative. 1. Acute hypoxic respiratory failure secondary to highly suspected COVID-19 pneumonia. COVID-19 negative on 05/18/2020 and 05/19/2020. 2. Fever on admission, again reported last night per team, 3. Leukocytosis, on steroids. 4. Hypoglycemic encephalopathy, resolved. 5. Diabetes. 6. Hypertension. 7. Severe protein-calorie malnutrition. 8. Gram-positive cocci bacteremia, 05/18/2020, 1 out of 2 bottles, ID and NELDA still pending at this time, could be a contaminant. RECOMMENDATIONS: 1. Continue empiric IV vancomycin. 2. Change ceftriaxone to Zosyn. 3. Continue empiric doxycycline. 4. Follow up GPC in blood cultures. 5. Continue supportive care General: Alert, Cooperative, No acute distress Heart: Regular rate, Normal S1, Normal S2, No murmurs Lungs: Clear Abdomen: Normal bowel sounds, Soft, No tenderness, No hepatosplenomegaly Labs LABS Neck soft tissue ultrasound HISTORY: Thyroid nodule. FINDINGS: Right thyroid lobe measures 5.4 x 3.0 x 2.6 cm. Left thyroid lobe measures 4.4 x 2.6 x 2.2 cm. Isthmus thickness 1.1 cm. Right thyroid lobe 0.5 cm wider than tall solid and cystic anechoic nodule per ACR criteria this is TI RADS 1, benign. No additional thyroid nodules. No thyroid calcifications. IMPRESSION: No suspicious abnormality. See above. Electronically signed by: Marlena Licea MD (05/24/2020 8:02 PM) [facility] [place] DICTATED and SIGNED BY: MARLENA LICEA MD DATE: 05/24/202001 Laboratory Tests Test 05/24/20 12:16 05/24/20 17:21 05/24/20 21:10 05/24/20 22:33 Glucose (Fingerstick) 315 mg/dL (70-99) 398 mg/dL (70-99) 411 mg/dL (70-99) 348 mg/dL (70-99) Test 05/25/20 07:18 Glucose (Fingerstick) 293 mg/dL (70-99) Assessment and Plan Assessmemt and Plan Problems Medical Problems: (1) Altered mental status Status: Acute (2) Hypoglycemia Status: Acute (3) Hypothermia Status: Acute Comment Review of Relevant I have reviewed the following items kavya (where applicable) has been applied. Labs Laboratory Tests Test 05/23/20 12:05 05/23/20 16:51 05/23/20 20:06 05/24/20 04:15 Glucose (Fingerstick) 363 mg/dL (70-99) 379 mg/dL (70-99) 374 mg/dL (70-99) Creatinine 0.9 mg/dL (0.6-1.0) Estimated GFR (Cockcroft-Gault) 62.3 Test 05/24/20 08:38 05/24/20 08:40 05/24/20 12:16 05/24/20 17:21 Glucose (Fingerstick) 334 mg/dL (70-99) 315 mg/dL (70-99) 398 mg/dL (70-99) Procalcitonin 0.36 ng/mL (0.00-0.10) Vancomycin Level Trough 6.6 mcg/mL (10.0-20.0) Vancomycin Last Dose Date 05/23/20 Vancomycin Last Dose Time 0900 Test 05/24/20 21:10 05/24/20 22:33 05/25/20 07:18 Glucose (Fingerstick) 411 mg/dL (70-99) 348 mg/dL (70-99) 293 mg/dL (70-99) Laboratory Tests Test 05/24/20 12:16 05/24/20 17:21 05/24/20 21:10 05/24/20 22:33 Glucose (Fingerstick) 315 mg/dL (70-99) 398 mg/dL (70-99) 411 mg/dL (70-99) 348 mg/dL (70-99) Test 05/25/20 07:18 Glucose (Fingerstick) 293 mg/dL (70-99) Microbiology 05/18/20 Urine Culture - Final, Complete 05/18/20 Blood Culture - Final, Complete Medications Current Medications Sodium Chloride 1,000 ml @ 1,000 mls/hr 1X ONCE IV Last administered on 05/18/20at 09:29; Start 05/18/20 at 09:15; Stop 05/18/20 at 10:14; Status DC Ceftriaxone Sodium (Rocephin) 1 gm 1X ONCE IVP Last administered on 05/18/20at 09:28; Start 05/18/20 at 09:15; Stop 05/18/20 at 09:16; Status DC Ondansetron HCl (Zofran) 4 mg PRN Q8HRS PRN IV NAUSEA/VOMITING; Start 05/18/20 at 10:15; Stop 05/18/20 at 16:24; Status DC Acetaminophen (Tylenol) 650 mg PRN Q4HRS PRN PO FEVER > 100.3'F; Start 05/18/20 at 10:15; Stop 05/18/20 at 16:24; Status DC Ceftriaxone Sodium (Rocephin) 1 gm Q24H IVP Last administered on 05/24/20at 09:09; Start 05/19/20 at 09:00; Stop 05/24/20 at 18:10; Status DC Sodium Chloride (Normal Saline Flush) 3 ml QSHIFT PRN IV AFTER MEDS AND BLOOD DRAWS; Start 05/18/20 at 16:30 Sodium Chloride 1,000 ml @ 85 mls/hr [id number] IV Last administered on 05/24/20at 18:31; Start 05/18/20 at 16:20 Ondansetron HCl (Zofran) 4 mg PRN Q4HRS PRN IV NAUSEA/VOMITING; Start 05/18/20 at 16:30 Acetaminophen (Tylenol) 650 mg PRN Q4HRS PRN PO TEMP OVER 100.4F OR MILD PAIN Last administered on 05/21/20at 21:10; Start 05/18/20 at 16:30 Acetaminophen (Tylenol Supp) 650 mg PRN Q4HRS PRN MT TEMP OVER 100.4F OR MILD PAIN; Start 05/18/20 at 16:30 Sodium Monofluorophosphate (Fleet Adult) 133 ml PRN DAILY PRN MT CONSTIPATION; Start 05/18/20 at 16:30 Docusate Sodium (Colace) 100 mg PRN BID PRN PO HARD STOOLS; Start 05/18/20 at 16:30 Albuterol Sulfate (Ventolin Neb Soln) 2.5 mg PRN Q4HRS PRN NEB SHORTNESS OF BREATH Last administered on 05/21/20at 18:14; Start 05/18/20 at 16:30 Guaifenesin (Robitussin) 200 mg PRN Q4HRS PRN PO COUGH Last administered on 05/23/20at 20:00; Start 05/18/20 at 16:30 Enoxaparin Sodium (Lovenox 40mg Syringe) 40 mg Q24H SQ Last administered on 05/24/20at 17:58; Start 05/18/20 at 17:00 Aspirin (Ecotrin) 81 mg DAILY PO Last administered on 05/25/20at 08:15; Start 05/19/20 at 09:00 Metoprolol Tartrate (Lopressor) 50 mg BID PO Last administered on 05/21/20 09:16; Start 05/19/20 at 09:00; Stop 05/21/20 at 15:45; Status DC Diclofenac Sodium (Voltaren) 75 mg BID PO Last administered on 05/25/20at 08:14; Start 05/19/20 at 10:00 Hydralazine HCl (Apresoline) 100 mg BID PO Last administered on 05/21/20at 09:15; Start 05/19/20 at 09:00; Stop 05/21/20 at 15:45; Status DC Lisinopril (Prinivil) 20 mg DAILY PO Last administered on 05/21/20 09:16; Start 05/19/20 at 10:00; Stop 05/21/20 at 15:45; Status DC Pantoprazole Sodium (Protonix) 40 mg DAILYAC PO Last administered on 05/25/20 08:16; Start 05/19/20 at 10:00 Atorvastatin Calcium (Lipitor) 40 mg QHS PO Last administered on 05/24/20at 21:14; Start 05/19/20 at 21:00 Hydrochlorothiazide (Hydrodiuril) 25 mg DAILY PO Last administered on 05/23/20at 08:59; Start 05/19/20 at 10:00; Stop 05/23/20 at 10:22; Status DC Lactobacillus Rhamnosus (Culturelle) 1 cap BID PO Last administered on 05/25/20at 08:16; Start 05/19/20 at 21:00 Insulin Human Lispro (HumaLOG) 0-7 UNITS TIDWMEALS SQ Last administered on 05/25/20at 08:19; Start 05/19/20 at 17:00 Dextrose (Dextrose 50%-Water Syringe) 12.5 gm PRN Q15MIN PRN IV SEE COMMENTS; Start 05/19/20 at 14:15 Methimazole (Tapazole) 5 mg BID PO Last administered on 05/25/20at 08:15; Start 05/20/20 at 10:00 Insulin Glargine (Lantus Syringe) 5 unit DAILY SQ Last administered on 05/22/20at 09:15; Start 05/21/20 at 09:00; Stop 05/22/20 at 21:05; Status DC Doxycycline Hyclate (Vibra-Tab) 100 mg BID PO Last administered on 05/25/20at 08:16; Start 05/21/20 at 15:00 Furosemide (Lasix) 20 mg 1X ONCE IVP Last administered on 05/21/20at 17:05; Start 05/21/20 at 17:00; Stop 05/21/20 at 17:01; Status DC Sterile Water (WATER for RESP) 1,000 ml CONT PRN INH VIA VAPOTHERM DEVICE Last administered on 05/23/20at 16:26; Start 05/21/20 at 17:15 Albuterol Sulfate (Ventolin Neb Soln) 2.5 mg Q4HRS NEB Last administered on 05/25/20at 08:36; Start 05/21/20 at 20:00 Vancomycin HCl (Vanco Per Pharmacy) 1 each PRN DAILY PRN MC SEE COMMENTS Last administered on 05/24/20at 10:26; Start 05/22/20 at 09:00 Vancomycin HCl 2 gm/Sodium Chloride 500 ml @ 250 mls/hr 1X ONCE IV Last administered on 05/22/20at 09:05; Start 05/22/20 at 09:00; Stop 05/22/20 at 10:59; Status DC Vancomycin HCl 1.25 gm/Sodium Chloride 250 ml @ 167 mls/hr Q24H IV Last administered on 05/23/20at 09:00; Start 05/23/20 at 09:00; Stop 05/24/20 at 10:05; Status DC Vancomycin HCl (Vancomycin Trough Level) 1 each 1X ONCE MC ; Start 05/24/20 at 08:30; Stop 05/24/20 at 08:31; Status DC Methylprednisolone Sodium Succinate (SOLU-Medrol 125MG VIAL) 80 mg Q8HRS IV Last administered on 05/25/20at 06:11; Start 05/22/20 at 14:00 Insulin Glargine (Lantus Syringe) 10 unit BID SQ Last administered on 05/23/20at 09:11; Start 05/22/20 at 21:00; Stop 05/23/20 at 20:17; Status DC Metoprolol Tartrate (Lopressor) 50 mg BID PO Last administered on 05/25/20at 08:16; Start 05/23/20 at 10:30 Hydrochlorothiazide (Microzide) 12.5 mg DAILY PO Last administered on 05/25/20at 08:15; Start 05/24/20 at 09:00 Potassium Chloride (Klor-Con) 40 meq Q2H PO Last administered on 05/23/20at 14:58; Start 05/23/20 at 10:30; Stop 05/23/20 at 14:31; Status DC Lisinopril (Prinivil) 40 mg DAILY PO Last administered on 05/25/20at 08:14; Start 05/23/20 at 10:30 Hydralazine HCl (Apresoline) 100 mg BID PO Last administered on 05/25/20at 08:15; Start 05/23/20 at 10:30 Insulin Glargine (Lantus Syringe) 10 unit BID SQ Last administered on 05/24/20at 09:14; Start 05/23/20 at 21:00; Stop 05/24/20 at 11:28; Status DC Vancomycin HCl 1.25 gm/Sodium Chloride 250 ml @ 167 mls/hr Q12H IV Last administered on 05/24/20at 22:30; Start 05/24/20 at 10:30 Vancomycin HCl (Vancomycin Trough Level) 1 each 1X ONCE MC ; Start 05/25/20 at 22:00; Stop 05/25/20 at 22:01 Insulin Glargine (Lantus Syringe) 12 unit BID SQ ; Start 05/24/20 at 21:00; Stop 05/24/20 at 17:27; Status DC Insulin Glargine (Lantus Syringe) 15 unit BID SQ Last administered on 05/25/20at 08:19; Start 05/24/20 at 21:00 Insulin Human Lispro (HumaLOG) 7 units 1X ONCE SQ Last administered on 05/24/20at 18:01; Start 05/24/20 at 17:30; Stop 05/24/20 at 17:31; Status DC Piperacillin Sod/ Tazobactam Sod 3.375 gm/Sodium Chloride 50 ml @ 100 mls/hr Q6HRS IV Last administered on 05/25/20at 06:21; Start 05/24/20 at 18:30 Insulin Human Lispro (HumaLOG) 11 units 1X SQ ; Start 05/24/20 at 21:30; Status Cancel Insulin Human Lispro (HumaLOG) 11 units 1X ONCE SQ Last administered on 05/24/20at 22:25; Start 05/24/20 at 22:00; Stop 05/24/20 at 22:01; Status DC Active Scripts Active Reported Actos (Pioglitazone Hcl) 45 Mg Tablet 1 Tab PO DAILY 30 Days Diclofenac Sodium 75 Mg Tablet. 1 Tab PO BID Klor-Con 10 (Potassium Chloride) 10 Meq Tablet.er 1 Tab PO DAILY 30 Days Metformin Hcl 1,000 Mg Tablet 1,000 Mg PO BIDWMEALS Omeprazole 20 Mg Capsule. 1 Cap PO DAILY Lisinopril-Hctz 20-25 Mg Tab (Lisinopril/Hydrochlorothiazide) 1 Each Tablet 1 Tab PO DAILY Aspirin Ec (Aspirin) 81 Mg Tablet. 1 Tab PO DAILY Hydralazine Hcl 100 Mg Tablet 1 Tab PO BID Metoprolol Tartrate 50 Mg Tablet 1 Tab PO BID Rosuvastatin Calcium 10 Mg Tablet 10 Mg PO DAILY Vitals/I & O Vital Sign - Last 24 Hours 05/24/20 05/24/20 05/24/20 05/24/20 10:00 11:00 12:00 12:56 Pulse 66 80 62 B/P (MAP) 159/69 (99) 165/79 (107) 164/68 (100) Pulse Ox 100 100 100 96 O2 Delivery Nasal Cannula Nasal Cannula Nasal Cannula VAPOTHERM O2 Flow Rate 14.0 14.0 14.0 14.0 05/24/20 05/24/20 05/24/20 05/24/20 13:32 14:30 15:15 16:27 Temp 98.8 98.8 Pulse 77 82 75 75 B/P (MAP) 141/88 (105) 146/64 (91) 161/66 (97) 148/73 (98) Pulse Ox 97 97 99 93 O2 Delivery Nasal Cannula Nasal Cannula Nasal Cannula Nasal Cannula O2 Flow Rate 14.0 14.0 14.0 5.0 05/24/20 05/24/20 05/24/20 05/24/20 17:00 17:08 18:00 20:00 Pulse 60 72 B/P (MAP) 164/76 (105) 147/77 (100) Pulse Ox 97 96 95 O2 Delivery Nasal Cannula Nasal Cannula Nasal Cannula Nasal Cannula O2 Flow Rate 5.0 5.0 5.0 5.0 05/24/20 05/24/20 05/24/20 05/24/20 20:00 20:15 21:00 21:14 Temp 97.8 97.8 Pulse 54 62 64 Resp 30 27 B/P (MAP) 176/78 (110) 168/77 (107) 168/77 Pulse Ox 95 96 95 O2 Delivery Nasal Cannula Nasal Cannula Nasal Cannula O2 Flow Rate 5.0 5.0 5.0 05/24/20 05/24/20 05/24/20 05/24/20 21:15 22:00 23:00 23:43 Pulse 66 54 48 Resp 27 33 B/P (MAP) 168/77 163/73 (103) 151/81 (104) Pulse Ox 96 96 96 O2 Delivery Nasal Cannula Nasal Cannula Nasal Cannula O2 Flow Rate 5.0 5.0 5.0 05/25/20 05/25/20 05/25/20 05/25/20 00:01 01:00 02:00 03:00 Pulse 52 52 46 60 Resp 21 35 22 B/P (MAP) 152/71 (98) 146/71 (96) 163/64 (97) 154/79 (104) Pulse Ox 93 93 93 96 O2 Delivery Nasal Cannula Nasal Cannula Nasal Cannula Nasal Cannula O2 Flow Rate 5.0 5.0 5.0 5.0 05/25/20 05/25/20 05/25/20 05/25/20 04:00 05:00 06:00 07:00 Temp 98.0 97.8 98.0 97.8 Pulse 60 70 54 54 Resp 25 22 24 B/P (MAP) 169/78 (108) 167/64 (98) 162/58 (92) 168/78 (108) Pulse Ox 92 22 22 95 O2 Delivery Nasal Cannula Nasal Cannula Nasal Cannula Nasal Cannula O2 Flow Rate 5.0 5.0 5.0 5.0 05/25/20 05/25/20 05/25/20 05/25/20 08:00 08:00 08:14 08:15 Pulse 78 54 54 B/P (MAP) 156/82 (106) 168/78 168/78 Pulse Ox 95 O2 Delivery Nasal Cannula Nasal Cannula O2 Flow Rate 5.0 5.0 05/25/20 05/25/20 08:16 08:39 Pulse 54 B/P (MAP) 168/78 Pulse Ox 96 O2 Delivery Nasal Cannula O2 Flow Rate 5.0 Intake and Output 6/05/24/20 05/25/20 15:00 23:00 07:00 Intake Total 720 ml 910 ml Output Total 1 ml Balance 720 ml 910 ml -1 ml SHIVA GILLLIAND MD May 25, 2020 09:22
[2020-05-25] MEDS: VANCOMYCIN 1.25 GM in IV NORMAL SALINE 250ML 250 ML IV SCH (09:59)
[2020-05-25] MEDS ORDERED: FUROSEMIDE 20 MG/2 ML VIAL. IVP ONE (10:00)
[2020-05-25 10:19] LABS: BASO % 0 % (0-3); EOS % 0 % (0-3); HEMATOCRIT 25.2 % (36.0-47.0); HEMOGLOBIN 8.3 g/dL (12.0-15.5); LYMPH # 0.5 x10^3/uL (1.0-4.8); LYMPH % 4 % (24-48); MEAN CORPUSCULAR HEMOGLOBIN 27 pg (25-35); MEAN CORPUSCULAR HGB CONC 33 g/dL (31-37); MEAN CORPUSCULAR VOLUME 82 fL (79-100); MONO # 0.4 x10^3/uL (0.0-1.1); MONO % 3 % (0-9); NEUT % 93 % (31-73); PLATELET COUNT 297 x10^3/uL (140-400); RED BLOOD COUNT 3.08 x10^6/uL (3.50-5.40); RED CELL DISTRIBUTION WIDTH 16.4 % (11.5-14.5)
[2020-05-25] MEDS ORDERED: MIDAZOLAM HCL/PF 2 MG/2 ML VIAL. IV ONE (10:30)
[2020-05-25] MEDS ORDERED: fentaNYL PF VIAL 100 MCG/2 ML VIAL IM ONE (10:30)
[2020-05-25 11:02] LABS: ALBUMIN 2.1 g/dL (3.4-5.0); ALBUMIN/GLOBULIN RATIO 0.5 (1.0-1.7); CALCIUM 7.2 mg/dL (8.5-10.1); GFR 55.1; POTASSIUM 3.5 mmol/L (3.5-5.1); TOTAL BILIRUBIN 0.7 mg/dL (0.2-1.0); TOTAL PROTEIN 6.6 g/dL (6.4-8.2)
--- NOTE | 2020-05-25 11:02 | NUR ---
SS following up with discharge planning. SS reviewed pt chart and discussed with pt RN. Pt is currently on IV Zosyn and Vancomycin and now on 5L NC of oxygen. PT/OT recommended home on 05/22/2020. Per RN, pt will transfer to another floor today. SS will continue to follow for discharge planning.
[2020-05-25] MEDS: VANCOMYCIN PER PHARMACY MC PRN ×2 (11:07→23:52)
[2020-05-25] MEDS: ENOXAPARIN 40 MG/0.4 ML SYRINGE. SQ SCH (16:18)
[2020-05-25] MEDS: hydrALAZINE 20 MG/ML VIAL. IVP PRN (16:19)
[2020-05-25] MEDS: ATORVASTATIN CALCIUM 40 MG TABLET. PO SCH (22:17)
[2020-05-25 22:29] LABS: VANC TR 17.7 mcg/mL (10.0-20.0)
--- NOTE | 2020-05-25 23:53 | NUR ---
Pharmacy Vancomycin Dosing Note S: Consulted to monitor and dose vancomycin started 05/22/20. O: DANDRE ROCKWELL is a 70 year old F with Bacteremia, . Other Antibiotics: ceftriaxone 1 gm q24h LABS: Last BUN: 28 Last Creatinine: 1.0 Creatinine Clearance: 52 mL/min Last WBC: 14 Last Procalcitonin: 0.36 Tmax (past 24 hours): 98.0 Microbiology: 05/18: blood cx: gram positive cocci in clusers (1/2 bottles) 05/18: urine cx: No growth final I/O: 1630/1 (5 voids) Drug Levels: Last Trough level: 17.7 on 05/25/20 at 2200 Last dose given 05/25/20 at 0959 Vancomycin Dosing: Dosing Weight: Actual Target Trough: 15-20 A: Based on: Trough,Actual Wt and CrCl P: 1. 05/25/20 2230 Continue Vancomycin 1250 mg IV q12h 2. Follow up Trough level in 5 to 7 days as needed 3. Pharmacy will continue to monitor, follow and adjust therapy as needed. TITA MARSHALL RPH, 05/25/20 2353 Signed: 05/25/20 at 2355 by TITA MARSHALL RPH PHA
[2020-05-26] VITALS (7 sets, daily range): BP systolic 149–200; BP diastolic 67–84
[2020-05-26] MEDS: VANCOMYCIN 1.25 GM in IV NORMAL SALINE 250ML 250 ML IV SCH ×3 (00:05→21:24)
[2020-05-26] MEDS: DICLOFENAC SODIUM 25 MG TABLET.DR PO SCH ×3 (00:07→21:18)
[2020-05-26] MEDS: methIMAzole 10 MG TABLET PO SCH ×3 (00:07→21:19)
[2020-05-26] MEDS: INSULIN GLARGINE SYRINGE. SQ SCH ×3 (00:08→21:31)
[2020-05-26] MEDS: ALBUTEROL SULFATE 2.5 MG/3 ML NEBU. NEB SCH ×6 (00:33→20:01)
[2020-05-26] MEDS: PIPERACILLIN/TAZOBACTAM 3.375 GM in IV NORMAL SALINE 50ML 50 ML IV SCH ×4 (00:40→17:51)
[2020-05-26] MEDS: hydrALAZINE 20 MG/ML VIAL. IVP PRN (02:28)
[2020-05-26 03:43] LABS: CALCIUM 7.5 mg/dL (8.5-10.1); CREATININE 0.9 mg/dL (0.6-1.0); GFR 62.3; POTASSIUM 3.2 mmol/L (3.5-5.1)
[2020-05-26] MEDS: methylPREDNISolone SOD SUCC PF 125 MG/2 ML VIAL. IV SCH ×3 (06:08→21:21)
--- NOTE | 2020-05-26 08:13 | PDOC ---
Infectious Disease Note Subjective: Subjective Pt tx out of ICU on Nasal O2 3-4 L/NC cough and sob improving no fevers,n/v/d Vital Signs: Vital Signs Vital Signs Date Time Temp Pulse Resp B/P (MAP) Pulse Ox O2 Delivery O2 Flow Rate FiO2 05/26/20 07:58 91 Nasal Cannula 4.0 05/26/20 07:20 98.0 71 20 176/73 (107) 98.0 Physical Exam: PHYSICAL EXAM GEN Alert HEENT: Anicteric. Pupils equal, reactive, on nasal O2 NECK: Supple. LUNGS: Clear. HEART: S1, S2. ABDOMEN: Soft, bowel sounds present, nontender, nondistended. EXTREMITIES: Bilateral lower and upper extremity edema. DERMATOLOGIC: Warm, dry. No generalized rash. NEUROLOGIC: Alert and oriented x 3, grossly nonfocal. PSYCHIATRIC: Cooperative. Medications: Inpatient Meds: Current Medications Medications (Trade) Dose Ordered Sig/Nini Start Time Stop Time Status Last Admin Dose Admin Acetaminophen (Tylenol Supp) 650 mg PRN Q4HRS PRN 05/18/20 16:30 Acetaminophen (Tylenol) 650 mg PRN Q4HRS PRN 05/18/20 16:30 05/21/20 21:10 650 MG Albuterol Sulfate (Ventolin Neb Soln) 2.5 mg Q4HRS 05/21/20 20:00 05/26/20 07:58 2.5 MG Aspirin (Ecotrin) 81 mg DAILY 05/19/20 09:00 05/25/20 08:15 81 MG Atorvastatin Calcium (Lipitor) 40 mg QHS 05/19/20 21:00 05/25/20 22:17 40 MG Ceftriaxone Sodium (Rocephin) 1 gm Q24H 05/19/20 09:00 05/24/20 18:10 DC 05/24/20 09:09 1 GM Dextrose (Dextrose 50%-Water Syringe) 12.5 gm PRN Q15MIN PRN 05/19/20 14:15 Diclofenac Sodium (Voltaren) 75 mg BID 05/19/20 10:00 05/26/20 00:07 75 MG Docusate Sodium (Colace) 100 mg PRN BID PRN 05/18/20 16:30 Doxycycline Hyclate (Vibra-Tab) 100 mg BID 05/21/20 15:00 05/25/20 22:17 100 MG Enoxaparin Sodium (Lovenox 40mg Syringe) 40 mg Q24H 05/18/20 17:00 05/25/20 16:18 40 MG Fentanyl Citrate (Fentanyl 2ml Vial) 50 mcg 1X ONCE 05/25/20 10:30 05/25/20 10:31 Cancel Furosemide (Lasix) 20 mg 1X ONCE 05/25/20 10:00 05/25/20 10:01 DC 05/25/20 11:12 20 MG Guaifenesin (Robitussin) 200 mg PRN Q4HRS PRN 05/18/20 16:30 05/23/20 20:00 200 MG Hydralazine HCl (Apresoline Inj) 10 mg PRN Q4HRS PRN 05/25/20 16:15 05/26/20 02:28 10 MG Hydralazine HCl (Apresoline) 100 mg BID 05/23/20 10:30 05/25/20 22:19 100 MG Hydrochlorothiazide (Hydrodiuril) 25 mg DAILY 05/19/20 10:00 05/23/20 10:22 DC 05/23/20 08:59 25 MG Hydrochlorothiazide (Microzide) 12.5 mg DAILY 05/24/20 09:00 05/25/20 08:15 12.5 MG Insulin Glargine (Lantus Syringe) 18 unit BID 05/25/20 21:00 05/26/20 00:08 18 UNIT Insulin Human Lispro (HumaLOG) 11 units 1X ONCE 05/24/20 22:00 05/24/20 22:01 DC 05/24/20 22:25 11 UNITS Lactobacillus Rhamnosus (Culturelle) 1 cap BID 05/19/20 21:00 05/25/20 22:17 1 CAP Lisinopril (Prinivil) 40 mg DAILY 05/23/20 10:30 05/25/20 08:14 40 MG Methimazole (Tapazole) 5 mg BID 05/20/20 10:00 05/26/20 00:07 5 MG Methylprednisolone Sodium Succinate (SOLU-Medrol 125MG VIAL) 80 mg Q8HRS 05/22/20 14:00 05/26/20 06:08 80 MG Metoprolol Tartrate (Lopressor) 50 mg BID 05/23/20 10:30 05/25/20 22:19 50 MG Midazolam HCl (Versed) 2 mg 1X ONCE 05/25/20 10:30 05/25/20 10:31 Cancel Ondansetron HCl (Zofran) 4 mg PRN Q4HRS PRN 05/18/20 16:30 Pantoprazole Sodium (Protonix) 40 mg DAILYAC 05/19/20 10:00 05/25/20 08:16 40 MG Piperacillin Sod/ Tazobactam Sod 3.375 gm/Sodium Chloride 50 ml @ 100 mls/hr Q6HRS 05/24/20 18:30 05/26/20 06:09 100 MLS/HR Potassium Chloride (Klor-Con) 40 meq Q2H 05/23/20 10:30 05/23/20 14:31 DC 05/23/20 14:58 40 MEQ Sodium Monofluorophosphate (Fleet Adult) 133 ml PRN DAILY PRN 05/18/20 16:30 Sodium Chloride 1,000 ml @ 85 mls/hr [id number] 05/18/20 16:20 05/25/20 09:44 DC 05/24/20 18:31 85 MLS/HR Sodium Chloride (Normal Saline Flush) 3 ml QSHIFT PRN 05/18/20 16:30 Sterile Water (WATER for RESP) 1,000 ml CONT PRN 05/21/20 17:15 05/23/20 16:26 1,000 ML Vancomycin HCl (Vanco Per Pharmacy) 1 each PRN DAILY PRN 05/22/20 09:00 05/25/20 23:52 1 EACH Vancomycin HCl (Vancomycin Trough Level) 1 each 1X ONCE 05/25/20 22:00 05/25/20 22:01 DC 05/25/20 22:00 1 EACH Vancomycin HCl 1.25 gm/Sodium Chloride 250 ml @ 167 mls/hr Q12H 05/24/20 10:30 05/26/20 00:05 167 MLS/HR Vancomycin HCl 2 gm/Sodium Chloride 500 ml @ 250 mls/hr 1X ONCE 05/22/20 09:00 05/22/20 10:59 DC 05/22/20 09:05 250 MLS/HR Labs: Lab Laboratory Tests Test 05/25/20 10:10 05/25/20 11:37 05/25/20 16:52 05/25/20 20:57 White Blood Count 14.0 x10^3/uL (4.0-11.0) Red Blood Count 3.08 x10^6/uL (3.50-5.40) Hemoglobin 8.3 g/dL (12.0-15.5) Hematocrit 25.2 % (36.0-47.0) Mean Corpuscular Volume 82 fL (79-100) Mean Corpuscular Hemoglobin 27 pg (25-35) Mean Corpuscular Hemoglobin Concent 33 g/dL (31-37) Red Cell Distribution Width 16.4 % (11.5-14.5) Platelet Count 297 x10^3/uL (140-400) Neutrophils (%) (Auto) 93 % (31-73) Lymphocytes (%) (Auto) 4 % (24-48) Monocytes (%) (Auto) 3 % (0-9) Eosinophils (%) (Auto) 0 % (0-3) Basophils (%) (Auto) 0 % (0-3) Neutrophils # (Auto) 13.0 x10^3/uL (1.8-7.7) Lymphocytes # (Auto) 0.5 x10^3/uL (1.0-4.8) Monocytes # (Auto) 0.4 x10^3/uL (0.0-1.1) Eosinophils # (Auto) 0.0 x10^3/uL (0.0-0.7) Basophils # (Auto) 0.0 x10^3/uL (0.0-0.2) Sodium Level 144 mmol/L (136-145) Potassium Level 3.5 mmol/L (3.5-5.1) Chloride Level 108 mmol/L (98-107) Carbon Dioxide Level 27 mmol/L (21-32) Anion Gap 9 (6-14) Blood Urea Nitrogen 28 mg/dL (7-20) Creatinine 1.0 mg/dL (0.6-1.0) Estimated GFR (Cockcroft-Gault) 55.1 BUN/Creatinine Ratio 28 (6-20) Glucose Level 421 mg/dL (70-99) Calcium Level 7.2 mg/dL (8.5-10.1) Total Bilirubin 0.7 mg/dL (0.2-1.0) Aspartate Amino Transf (AST/SGOT) 100 U/L (15-37) Alanine Aminotransferase (ALT/SGPT) 67 U/L (14-59) Alkaline Phosphatase 379 U/L (46-116) Total Protein 6.6 g/dL (6.4-8.2) Albumin 2.1 g/dL (3.4-5.0) Albumin/Globulin Ratio 0.5 (1.0-1.7) Glucose (Fingerstick) 363 mg/dL (70-99) 319 mg/dL (70-99) 355 mg/dL (70-99) Test 05/25/20 22:09 05/26/20 03:00 05/26/20 06:43 Vancomycin Level Trough 17.7 mcg/mL (10.0-20.0) Vancomycin Last Dose Date 05/25/20 Vancomycin Last Dose Time 1030 Sodium Level 146 mmol/L (136-145) Potassium Level 3.2 mmol/L (3.5-5.1) Chloride Level 107 mmol/L (98-107) Carbon Dioxide Level 30 mmol/L (21-32) Anion Gap 9 (6-14) Blood Urea Nitrogen 25 mg/dL (7-20) Creatinine 0.9 mg/dL (0.6-1.0) Estimated GFR (Cockcroft-Gault) 62.3 Glucose Level 388 mg/dL (70-99) Calcium Level 7.5 mg/dL (8.5-10.1) Glucose (Fingerstick) 363 mg/dL (70-99) Objective: Assessment: 1. Acute hypoxic respiratory failure secondary to highly suspected COVID-19 pneumonia. COVID-19 negative on 05/18/2020 and 05/19/2020. 2. Fever on admission, again reported last night per team, now resolved 3. Leukocytosis, on steroids. 4. Hypoglycemic encephalopathy, resolved. 5. Diabetes. 6. Hypertension. 7. Severe protein-calorie malnutrition. 8. Gram-positive cocci bacteremia, 05/18/2020, 1 out of 2 bottles, ID and NELDA still pending at this time, could be a contaminant. 9. CHF Plan: Plan of Care : 1. Continue empiric IV vancomycin.Monitor renal func closely Vanc trough around 17 2. Cont Zosyn. 3. Continue empiric doxycycline. 4. Follow up GPC in blood cultures. 5. f/u cults 6. Continue supportive care MARYBETH REDMOND MD May 26, 2020 08:12
[2020-05-26] MEDS: LACTOBACILLUS RHAMNOSUS GG 1 CAPSULE. PO SCH ×2 (08:25→21:18)
[2020-05-26] MEDS: LISINOPRIL 20 MG TABLET PO SCH (08:25)
[2020-05-26] MEDS: PANTOPRAZOLE 40 MG TABLET.DR. PO SCH (08:25)
[2020-05-26] MEDS: hydroCHLOROthiazide 12.5 MG CAPSULE PO SCH (08:26)
[2020-05-26] MEDS: ASPIRIN ENTERIC COATED 81 MG TABLET.DR. PO SCH (08:26)
[2020-05-26] MEDS: DOXYCYCLINE HYCLATE 100 MG TABLET PO SCH ×2 (08:26→21:19)
[2020-05-26] MEDS: METOPROLOL TART IMMED RELEASE 50 MG TABLET. PO SCH ×2 (08:26→21:20)
--- NOTE | 2020-05-26 08:37 | PDOC ---
PULMONARY PROGRESS NOTES Subjective Patient feels better cough minimally productive Vitals Vital Signs Date Time Temp Pulse Resp B/P (MAP) Pulse Ox O2 Delivery O2 Flow Rate FiO2 05/26/20 07:58 91 Nasal Cannula 4.0 05/26/20 07:20 98.0 71 20 176/73 (107) 98.0 ROS: No Nausea, No Chest Pain, No Abdominal Pain, No Increase Cough General: Alert, Oriented X4 Lungs: Clear Cardiovascular: S1, S2 Abdomen: Soft Neuro Exam: Alert Extremities: Other (+1 BLE edema and +@ RUE ) Skin: Warm Labs Laboratory Tests Test 05/24/20 08:38 05/24/20 08:40 05/24/20 12:16 05/24/20 17:21 Glucose (Fingerstick) 334 mg/dL (70-99) 315 mg/dL (70-99) 398 mg/dL (70-99) Procalcitonin 0.36 ng/mL (0.00-0.10) Vancomycin Level Trough 6.6 mcg/mL (10.0-20.0) Vancomycin Last Dose Date 05/23/20 Vancomycin Last Dose Time 0900 Test 05/24/20 21:10 05/24/20 22:33 05/25/20 07:18 05/25/20 10:10 Glucose (Fingerstick) 411 mg/dL (70-99) 348 mg/dL (70-99) 293 mg/dL (70-99) White Blood Count 14.0 x10^3/uL (4.0-11.0) Red Blood Count 3.08 x10^6/uL (3.50-5.40) Hemoglobin 8.3 g/dL (12.0-15.5) Hematocrit 25.2 % (36.0-47.0) Mean Corpuscular Volume 82 fL (79-100) Mean Corpuscular Hemoglobin 27 pg (25-35) Mean Corpuscular Hemoglobin Concent 33 g/dL (31-37) Red Cell Distribution Width 16.4 % (11.5-14.5) Platelet Count 297 x10^3/uL (140-400) Neutrophils (%) (Auto) 93 % (31-73) Lymphocytes (%) (Auto) 4 % (24-48) Monocytes (%) (Auto) 3 % (0-9) Eosinophils (%) (Auto) 0 % (0-3) Basophils (%) (Auto) 0 % (0-3) Neutrophils # (Auto) 13.0 x10^3/uL (1.8-7.7) Lymphocytes # (Auto) 0.5 x10^3/uL (1.0-4.8) Monocytes # (Auto) 0.4 x10^3/uL (0.0-1.1) Eosinophils # (Auto) 0.0 x10^3/uL (0.0-0.7) Basophils # (Auto) 0.0 x10^3/uL (0.0-0.2) Sodium Level 144 mmol/L (136-145) Potassium Level 3.5 mmol/L (3.5-5.1) Chloride Level 108 mmol/L (98-107) Carbon Dioxide Level 27 mmol/L (21-32) Anion Gap 9 (6-14) Blood Urea Nitrogen 28 mg/dL (7-20) Creatinine 1.0 mg/dL (0.6-1.0) Estimated GFR (Cockcroft-Gault) 55.1 BUN/Creatinine Ratio 28 (-20) Glucose Level 421 mg/dL (70-99) Calcium Level 7.2 mg/dL (8.5-10.1) Total Bilirubin 0.7 mg/dL (0.2-1.0) Aspartate Amino Transf (AST/SGOT) 100 U/L (15-37) Alanine Aminotransferase (ALT/SGPT) 67 U/L (14-59) Alkaline Phosphatase 379 U/L (46-116) Total Protein 6.6 g/dL (6.4-8.2) Albumin 2.1 g/dL (3.4-5.0) Albumin/Globulin Ratio 0.5 (1.0-1.7) Test 05/25/20 11:37 05/25/20 16:52 05/25/20 20:57 05/25/20 22:09 Glucose (Fingerstick) 363 mg/dL (70-99) 319 mg/dL (70-99) 355 mg/dL (70-99) Vancomycin Level Trough 17.7 mcg/mL (10.0-20.0) Vancomycin Last Dose Date 05/25/20 Vancomycin Last Dose Time 1030 Test 05/26/20 03:00 05/26/20 06:43 Sodium Level 146 mmol/L (136-145) Potassium Level 3.2 mmol/L (3.5-5.1) Chloride Level 107 mmol/L (98-107) Carbon Dioxide Level 30 mmol/L (21-32) Anion Gap 9 (6-14) Blood Urea Nitrogen 25 mg/dL (7-20) Creatinine 0.9 mg/dL (0.6-1.0) Estimated GFR (Cockcroft-Gault) 62.3 Glucose Level 388 mg/dL (70-99) Calcium Level 7.5 mg/dL (8.5-10.1) Glucose (Fingerstick) 363 mg/dL (70-99) Laboratory Tests Test 05/25/20 10:10 05/25/20 11:37 05/25/20 16:52 05/25/20 20:57 White Blood Count 14.0 x10^3/uL (4.0-11.0) Red Blood Count 3.08 x10^6/uL (3.50-5.40) Hemoglobin 8.3 g/dL (12.0-15.5) Hematocrit 25.2 % (36.0-47.0) Mean Corpuscular Volume 82 fL (79-100) Mean Corpuscular Hemoglobin 27 pg (25-35) Mean Corpuscular Hemoglobin Concent 33 g/dL (31-37) Red Cell Distribution Width 16.4 % (11.5-14.5) Platelet Count 297 x10^3/uL (140-400) Neutrophils (%) (Auto) 93 % (31-73) Lymphocytes (%) (Auto) 4 % (24-48) Monocytes (%) (Auto) 3 % (0-9) Eosinophils (%) (Auto) 0 % (0-3) Basophils (%) (Auto) 0 % (0-3) Neutrophils # (Auto) 13.0 x10^3/uL (1.8-7.7) Lymphocytes # (Auto) 0.5 x10^3/uL (1.0-4.8) Monocytes # (Auto) 0.4 x10^3/uL (0.0-1.1) Eosinophils # (Auto) 0.0 x10^3/uL (0.0-0.7) Basophils # (Auto) 0.0 x10^3/uL (0.0-0.2) Sodium Level 144 mmol/L (136-145) Potassium Level 3.5 mmol/L (3.5-5.1) Chloride Level 108 mmol/L (98-107) Carbon Dioxide Level 27 mmol/L (21-32) Anion Gap 9 (6-14) Blood Urea Nitrogen 28 mg/dL (7-20) Creatinine 1.0 mg/dL (0.6-1.0) Estimated GFR (Cockcroft-Gault) 55.1 BUN/Creatinine Ratio 28 (6-20) Glucose Level 421 mg/dL (70-99) Calcium Level 7.2 mg/dL (8.5-10.1) Total Bilirubin 0.7 mg/dL (0.2-1.0) Aspartate Amino Transf (AST/SGOT) 100 U/L (15-37) Alanine Aminotransferase (ALT/SGPT) 67 U/L (14-59) Alkaline Phosphatase 379 U/L (46-116) Total Protein 6.6 g/dL (6.4-8.2) Albumin 2.1 g/dL (3.4-5.0) Albumin/Globulin Ratio 0.5 (1.0-1.7) Glucose (Fingerstick) 363 mg/dL (70-99) 319 mg/dL (70-99) 355 mg/dL (70-99) Test 05/25/20 22:09 05/26/20 03:00 05/26/20 06:43 Vancomycin Level Trough 17.7 mcg/mL (10.0-20.0) Vancomycin Last Dose Date 05/25/20 Vancomycin Last Dose Time 1030 Sodium Level 146 mmol/L (136-145) Potassium Level 3.2 mmol/L (3.5-5.1) Chloride Level 107 mmol/L (98-107) Carbon Dioxide Level 30 mmol/L (21-32) Anion Gap 9 (6-14) Blood Urea Nitrogen 25 mg/dL (7-20) Creatinine 0.9 mg/dL (0.6-1.0) Estimated GFR (Cockcroft-Gault) 62.3 Glucose Level 388 mg/dL (70-99) Calcium Level 7.5 mg/dL (8.5-10.1) Glucose (Fingerstick) 363 mg/dL (70-99) Medications Active Scripts Medications Dose Route/Sig Max Daily Dose Days Date Category Actos (Pioglitazone Hcl) 45 Mg Tablet 1 Tab PO DAILY 30 05/18/20 Reported Diclofenac Sodium 75 Mg Tablet.dr 1 Tab PO BID 05/18/20 Reported Klor-Con 10 (Potassium Chloride) 10 Meq Tablet.er 1 Tab PO DAILY 30 05/18/20 Reported Metformin Hcl 1,000 Mg Tablet 1,000 Mg PO BIDWMEALS 05/18/20 Reported Omeprazole 20 Mg Capsule.dr 1 Cap PO DAILY 05/18/20 Reported Lisinopril-Hctz 20-25 Mg Tab (Lisinopril/Hydrochlorothiazide) 1 Each Tablet 1 Tab PO DAILY 05/18/20 Reported Aspirin Ec (Aspirin) 81 Mg Tablet.dr 1 Tab PO DAILY 05/18/20 Reported Hydralazine Hcl 100 Mg Tablet 1 Tab PO BID 05/18/20 Reported Metoprolol Tartrate 50 Mg Tablet 1 Tab PO BID 05/18/20 Reported Rosuvastatin Calcium 10 Mg Tablet 10 Mg PO DAILY 05/18/20 Reported Comments CXR 05/23/2020 IMPRESSION: 1. Persistent infiltrates with little change. Impression . IMPRESSION: 1. Acute hypoxic respiratory failure 2. Abnormal chest x-ray with bilateral infiltrates- 3. Fever, improved 4. Hypoglycemic encephalopathy, resolved. 5. Severe protein-calorie malnutrition. 6. Mild azotemia. 7. SARS-CoV-2 negative x2 8. Bacteremia Plan . Follow-up on blood cultures Up to chair Antibiotics per ID SARS-CoV-2 negative x2 DM per IM HTN per IM Fever- --Tylenol PRN PT/OT KING WHITTINGTON MD May 26, 2020 08:37
[2020-05-26] MEDS: INSULIN LISPRO 300 UNITS/3 ML VIAL. SQ SCH ×3 (08:38→17:57)
--- NOTE | 2020-05-26 11:08 | PDOC ---
PROGRESS NOTES Assessment Problems Medical Problems: (1) Altered mental status Status: Acute (2) Hypoglycemia Status: Acute (3) Hypothermia Status: Acute Encephalopathy due to hypoglycemia and hypothermia, no evidence of any acute stroke, the CT finding is not clinically relevant and does not merit any additional attention especially with her lack of symptoms and normal examination. Moreover, this would be expected in someone who has had hypertension and diabetes for several years. Ruled out for COVID, has pulmonary infiltrate Plan No additional neurological studies needed. I had signed off, but given critical illness, I will keep an eye on her with you Defer management of pedal edema to primary service Subjective Complains of pedal edema Objective Vital Signs Date Time Temp Pulse Resp B/P (MAP) Pulse Ox O2 Delivery O2 Flow Rate FiO2 05/26/20 10:12 98.5 76 20 165/69 (101) 91 Nasal Cannula 3.0 98.5 Intake and Output 05/26/20 07:00 Intake Total 1250 ml Output Total 300 ml Balance 950 ml Intake Oral 1250 ml Output Urine Total 300 ml # Voids 4 # Bowel Movements 1 PHYSICAL EXAM Alert. Oriented to time, place and person. Speaks only A[place]. PERRL. EOMI. CN: no focal findings. Muscle tone: normal. Muscle strength: 5/5 DTR: 2+ Plantar reflex: flexor Gait: not examined in bed. Sensory exam: no abnormal findings. No cerebellar signs elicited. Review of Relevant I have reviewed the following items kavya (where applicable) has been applied. Labs Laboratory Tests Test 05/24/20 12:16 05/24/20 17:21 05/24/20 21:10 05/24/20 22:33 Glucose (Fingerstick) 315 mg/dL (70-99) 398 mg/dL (70-99) 411 mg/dL (70-99) 348 mg/dL (70-99) Test 05/25/20 07:18 05/25/20 10:10 05/25/20 11:37 05/25/20 16:52 Glucose (Fingerstick) 293 mg/dL (70-99) 363 mg/dL (70-99) 319 mg/dL (70-99) White Blood Count 14.0 x10^3/uL (4.0-11.0) Red Blood Count 3.08 x10^6/uL (3.50-5.40) Hemoglobin 8.3 g/dL (12.0-15.5) Hematocrit 25.2 % (36.0-47.0) Mean Corpuscular Volume 82 fL (79-100) Mean Corpuscular Hemoglobin 27 pg (25-35) Mean Corpuscular Hemoglobin Concent 33 g/dL (31-37) Red Cell Distribution Width 16.4 % (11.5-14.5) Platelet Count 297 x10^3/uL (140-400) Neutrophils (%) (Auto) 93 % (31-73) Lymphocytes (%) (Auto) 4 % (24-48) Monocytes (%) (Auto) 3 % (0-9) Eosinophils (%) (Auto) 0 % (0-3) Basophils (%) (Auto) 0 % (0-3) Neutrophils # (Auto) 13.0 x10^3/uL (1.8-7.7) Lymphocytes # (Auto) 0.5 x10^3/uL (1.0-4.8) Monocytes # (Auto) 0.4 x10^3/uL (0.0-1.1) Eosinophils # (Auto) 0.0 x10^3/uL (0.0-0.7) Basophils # (Auto) 0.0 x10^3/uL (0.0-0.2) Sodium Level 144 mmol/L (136-145) Potassium Level 3.5 mmol/L (3.5-5.1) Chloride Level 108 mmol/L (98-107) Carbon Dioxide Level 27 mmol/L (21-32) Anion Gap 9 (6-14) Blood Urea Nitrogen 28 mg/dL (7-20) Creatinine 1.0 mg/dL (0.6-1.0) Estimated GFR (Cockcroft-Gault) 55.1 BUN/Creatinine Ratio 28 (6-20) Glucose Level 421 mg/dL (70-99) Calcium Level 7.2 mg/dL (8.5-10.1) Total Bilirubin 0.7 mg/dL (0.2-1.0) Aspartate Amino Transf (AST/SGOT) 100 U/L (15-37) Alanine Aminotransferase (ALT/SGPT) 67 U/L (14-59) Alkaline Phosphatase 379 U/L (46-116) Total Protein 6.6 g/dL (6.4-8.2) Albumin 2.1 g/dL (3.4-5.0) Albumin/Globulin Ratio 0.5 (1.0-1.7) Test 05/25/20 20:57 05/25/20 22:09 05/26/20 03:00 05/26/20 06:43 Glucose (Fingerstick) 355 mg/dL (70-99) 363 mg/dL (70-99) Vancomycin Level Trough 17.7 mcg/mL (10.0-20.0) Vancomycin Last Dose Date 05/25/20 Vancomycin Last Dose Time 1030 Sodium Level 146 mmol/L (136-145) Potassium Level 3.2 mmol/L (3.5-5.1) Chloride Level 107 mmol/L (98-107) Carbon Dioxide Level 30 mmol/L (21-32) Anion Gap 9 (6-14) Blood Urea Nitrogen 25 mg/dL (7-20) Creatinine 0.9 mg/dL (0.6-1.0) Estimated GFR (Cockcroft-Gault) 62.3 Glucose Level 388 mg/dL (70-99) Calcium Level 7.5 mg/dL (8.5-10.1) Laboratory Tests Test 05/25/20 11:37 05/25/20 16:52 05/25/20 20:57 05/25/20 22:09 Glucose (Fingerstick) 363 mg/dL (70-99) 319 mg/dL (70-99) 355 mg/dL (70-99) Vancomycin Level Trough 17.7 mcg/mL (10.0-20.0) Vancomycin Last Dose Date 05/25/20 Vancomycin Last Dose Time 1030 Test 05/26/20 03:00 05/26/20 06:43 Sodium Level 146 mmol/L (136-145) Potassium Level 3.2 mmol/L (3.5-5.1) Chloride Level 107 mmol/L (98-107) Carbon Dioxide Level 30 mmol/L (21-32) Anion Gap 9 (6-14) Blood Urea Nitrogen 25 mg/dL (7-20) Creatinine 0.9 mg/dL (0.6-1.0) Estimated GFR (Cockcroft-Gault) 62.3 Glucose Level 388 mg/dL (70-99) Calcium Level 7.5 mg/dL (8.5-10.1) Glucose (Fingerstick) 363 mg/dL (70-99) Microbiology 05/24/20 Blood Culture - Preliminary, Resulted NO GROWTH AFTER 1 DAY 05/18/20 Urine Culture - Final, Complete Medications Current Medications Sodium Chloride 1,000 ml @ 1,000 mls/hr 1X ONCE IV Last administered on 05/18/20at 09:29; Start 05/18/20 at 09:15; Stop 05/18/20 at 10:14; Status DC Ceftriaxone Sodium (Rocephin) 1 gm 1X ONCE IVP Last administered on 05/18/20at 09:28; Start 05/18/20 at 09:15; Stop 05/18/20 at 09:16; Status DC Ondansetron HCl (Zofran) 4 mg PRN Q8HRS PRN IV NAUSEA/VOMITING; Start 05/18/20 at 10:15; Stop 05/18/20 at 16:24; Status DC Acetaminophen (Tylenol) 650 mg PRN Q4HRS PRN PO FEVER > 100.3'F; Start 05/18/20 at 10:15; Stop 05/18/20 at 16:24; Status DC Ceftriaxone Sodium (Rocephin) 1 gm Q24H IVP Last administered on 05/24/20at 09:09; Start 05/19/20 at 09:00; Stop 05/24/20 at 18:10; Status DC Sodium Chloride (Normal Saline Flush) 3 ml QSHIFT PRN IV AFTER MEDS AND BLOOD DRAWS; Start 05/18/20 at 16:30 Sodium Chloride 1,000 ml @ 85 mls/hr [id number] IV Last administered on 05/24/20at 18:31; Start 05/18/20 at 16:20; Stop 05/25/20 at 09:44; Status DC Ondansetron HCl (Zofran) 4 mg PRN Q4HRS PRN IV NAUSEA/VOMITING; Start 05/18/20 at 16:30 Acetaminophen (Tylenol) 650 mg PRN Q4HRS PRN PO TEMP OVER 100.4F OR MILD PAIN Last administered on 05/21/20at 21:10; Start 05/18/20 at 16:30 Acetaminophen (Tylenol Supp) 650 mg PRN Q4HRS PRN [place] TEMP OVER 100.4F OR MILD PAIN; Start 05/18/20 at 16:30 Sodium Monofluorophosphate (Fleet Adult) 133 ml PRN DAILY PRN [place] CONSTIPATION; Start 05/18/20 at 16:30 Docusate Sodium (Colace) 100 mg PRN BID PRN PO HARD STOOLS; Start 05/18/20 at 16:30 Albuterol Sulfate (Ventolin Neb Soln) 2.5 mg PRN Q4HRS PRN NEB SHORTNESS OF BREATH Last administered on 05/21/20at 18:14; Start 05/18/20 at 16:30 Guaifenesin (Robitussin) 200 mg PRN Q4HRS PRN PO COUGH Last administered on 05/23/20at 20:00; Start 05/18/20 at 16:30 Enoxaparin Sodium (Lovenox 40mg Syringe) 40 mg Q24H SQ Last administered on 05/25/20at 16:18; Start 05/18/20 at 17:00 Aspirin (Ecotrin) 81 mg DAILY PO Last administered on 05/26/20at 08:26; Start 05/19/20 at 09:00 Metoprolol Tartrate (Lopressor) 50 mg BID PO Last administered on 05/21/20at 09:16; Start 05/19/20 at 09:00; Stop 05/21/20 at 15:45; Status DC Diclofenac Sodium (Voltaren) 75 mg BID PO Last administered on 05/26/20at 00:07; Start 05/19/20 at 10:00 Hydralazine HCl (Apresoline) 100 mg BID PO Last administered on 05/21/20at 09:15; Start 05/19/20 at 09:00; Stop 05/21/20 at 15:45; Status DC Lisinopril (Prinivil) 20 mg DAILY PO Last administered on 05/21/20at 09:16; Start 05/19/20 at 10:00; Stop 05/21/20 at 15:45; Status DC Pantoprazole Sodium (Protonix) 40 mg DAILYAC PO Last administered on 05/26/20at 08:25; Start 05/19/20 at 10:00 Atorvastatin Calcium (Lipitor) 40 mg QHS PO Last administered on 05/25/20at 22:17; Start 05/19/20 at 21:00 Hydrochlorothiazide (Hydrodiuril) 25 mg DAILY PO Last administered on 05/23/20 08:59; Start 05/19/20 at 10:00; Stop 05/23/20 at 10:22; Status DC Lactobacillus Rhamnosus (Culturelle) 1 cap BID PO Last administered on 05/26/20 08:25; Start 05/19/20 at 21:00 Insulin Human Lispro (HumaLOG) 0-7 UNITS TIDWMEALS SQ Last administered on 05/26/20at 08:38; Start 05/19/20 at 17:00 Dextrose (Dextrose 50%-Water Syringe) 12.5 gm PRN Q15MIN PRN IV SEE COMMENTS; Start 05/19/20 at 14:15 Methimazole (Tapazole) 5 mg BID PO Last administered on 05/26/20 08:24; Start 05/20/20 at 10:00 Insulin Glargine (Lantus Syringe) 5 unit DAILY SQ Last administered on 05/22/20at 09:15; Start 05/21/20 at 09:00; Stop 05/22/20 at 21:05; Status DC Doxycycline Hyclate (Vibra-Tab) 100 mg BID PO Last administered on 05/26/20 08:26; Start 05/21/20 at 15:00 Furosemide (Lasix) 20 mg 1X ONCE IVP Last administered on 05/21/20at 17:05; Start 05/21/20 at 17:00; Stop 05/21/20 at 17:01; Status DC Sterile Water (WATER for RESP) 1,000 ml CONT PRN INH VIA VAPOTHERM DEVICE Last administered on 05/23/20at 16:26; Start 05/21/20 at 17:15 Albuterol Sulfate (Ventolin Neb Soln) 2.5 mg Q4HRS NEB Last administered on 05/26/20at 07:58; Start 05/21/20 at 20:00 Vancomycin HCl (Vanco Per Pharmacy) 1 each PRN DAILY PRN MC SEE COMMENTS Last administered on 05/25/20at 23:52; Start 05/22/20 at 09:00 Vancomycin HCl 2 gm/Sodium Chloride 500 ml @ 250 mls/hr 1X ONCE IV Last administered on 05/22/20at 09:05; Start 05/22/20 at 09:00; Stop 05/22/20 at 10:59; Status DC Vancomycin HCl 1.25 gm/Sodium Chloride 250 ml @ 167 mls/hr Q24H IV Last administered on 05/23/20at 09:00; Start 05/23/20 at 09:00; Stop 05/24/20 at 10:05; Status DC Vancomycin HCl (Vancomycin Trough Level) 1 each 1X ONCE MC Last administered on 05/24/20at 08:30; Start 05/24/20 at 08:30; Stop 05/24/20 at 08:31; Status DC Methylprednisolone Sodium Succinate (SOLU-Medrol 125MG VIAL) 80 mg Q8HRS IV Last administered on 05/26/20at 06:08; Start 05/22/20 at 14:00 Insulin Glargine (Lantus Syringe) 10 unit BID SQ Last administered on 05/23/20at 09:11; Start 05/22/20 at 21:00; Stop 05/23/20 at 20:17; Status DC Metoprolol Tartrate (Lopressor) 50 mg BID PO Last administered on 05/26/20at 08:26; Start 05/23/20 at 10:30 Hydrochlorothiazide (Microzide) 12.5 mg DAILY PO Last administered on 05/26/20at 08:26; Start 05/24/20 at 09:00 Potassium Chloride (Klor-Con) 40 meq Q2H PO Last administered on 05/23/20at 14:58; Start 05/23/20 at 10:30; Stop 05/23/20 at 14:31; Status DC Lisinopril (Prinivil) 40 mg DAILY PO Last administered on 05/26/20at 08:25; Start 05/23/20 at 10:30 Hydralazine HCl (Apresoline) 100 mg BID PO Last administered on 05/26/20at 08:26; Start 05/23/20 at 10:30 Insulin Glargine (Lantus Syringe) 10 unit BID SQ Last administered on 05/24/20at 09:14; Start 05/23/20 at 21:00; Stop 05/24/20 at 11:28; Status DC Vancomycin HCl 1.25 gm/Sodium Chloride 250 ml @ 167 mls/hr Q12H IV Last administered on 05/26/20at 00:05; Start 05/24/20 at 10:30 Vancomycin HCl (Vancomycin Trough Level) 1 each 1X ONCE MC Last administered on 05/25/20at 22:00; Start 05/25/20 at 22:00; Stop 05/25/20 at 22:01; Status DC Insulin Glargine (Lantus Syringe) 12 unit BID SQ ; Start 05/24/20 at 21:00; Stop 05/24/20 at 17:27; Status DC Insulin Glargine (Lantus Syringe) 15 unit BID SQ Last administered on 05/25/20at 08:19; Start 05/24/20 at 21:00; Stop 05/25/20 at 09:47; Status DC Insulin Human Lispro (HumaLOG) 7 units 1X ONCE SQ Last administered on 05/24/20at 18:01; Start 05/24/20 at 17:30; Stop 05/24/20 at 17:31; Status DC Piperacillin Sod/ Tazobactam Sod 3.375 gm/Sodium Chloride 50 ml @ 100 mls/hr Q6HRS IV Last administered on 05/26/20at 06:09; Start 05/24/20 at 18:30 Insulin Human Lispro (HumaLOG) 11 units 1X SQ ; Start 05/24/20 at 21:30; Status Cancel Insulin Human Lispro (HumaLOG) 11 units 1X ONCE SQ Last administered on 05/24/20at 22:25; Start 05/24/20 at 22:00; Stop 05/24/20 at 22:01; Status DC Furosemide (Lasix) 20 mg 1X ONCE IVP Last administered on 05/25/20at 11:12; Start 05/25/20 at 10:00; Stop 05/25/20 at 10:01; Status DC Insulin Glargine (Lantus Syringe) 18 unit BID SQ Last administered on 05/26/20at 08:37; Start 05/25/20 at 21:00 Midazolam HCl (Versed) 2 mg 1X ONCE IV ; Start 05/25/20 at 10:30; Stop 05/25/20 at 10:31; Status Cancel Fentanyl Citrate (Fentanyl 2ml Vial) 50 mcg 1X ONCE IM ; Start 05/25/20 at 10:30; Stop 05/25/20 at 10:31; Status Cancel Hydralazine HCl (Apresoline Inj) 10 mg PRN Q4HRS PRN IVP ELEVATED BP, SEE COMMENTS Last administered on 05/26/20at 02:28; Start 05/25/20 at 16:15 Active Scripts Active Reported Actos (Pioglitazone Hcl) 45 Mg Tablet 1 Tab PO DAILY 30 Days Diclofenac Sodium 75 Mg Tablet. 1 Tab PO BID Klor-Con 10 (Potassium Chloride) 10 Meq Tablet.er 1 Tab PO DAILY 30 Days Metformin Hcl 1,000 Mg Tablet 1,000 Mg PO BIDWMEALS Omeprazole 20 Mg Capsule. 1 Cap PO DAILY Lisinopril-Hctz 20-25 Mg Tab (Lisinopril/Hydrochlorothiazide) 1 Each Tablet 1 Tab PO DAILY Aspirin Ec (Aspirin) 81 Mg Tablet.dr 1 Tab PO DAILY Hydralazine Hcl 100 Mg Tablet 1 Tab PO BID Metoprolol Tartrate 50 Mg Tablet 1 Tab PO BID Rosuvastatin Calcium 10 Mg Tablet 10 Mg PO DAILY Vitals/I & O Vital Sign - Last 24 Hours 05/25/20 05/25/20 05/25/20 05/25/20 11:15 11:49 12:32 13:20 Temp 98.5 98.5 Pulse 78 72 72 Resp 18 B/P (MAP) 150/69 (96) 168/78 (108) 157/76 (103) Pulse Ox 96 97 97 97 O2 Delivery Nasal Cannula Nasal Cannula Nasal Cannula Nasal Cannula O2 Flow Rate 5.0 5.0 5.0 5.0 05/25/20 05/25/20 05/25/20 05/25/20 14:00 15:00 15:57 16:00 Temp 98.7 98.7 Pulse 72 50 50 Resp 20 B/P (MAP) 168/76 (106) 171/82 (111) 86/82 (83) Pulse Ox 97 95 98 95 O2 Delivery Nasal Cannula Nasal Cannula Nasal Cannula Nasal Cannula O2 Flow Rate 5.0 3.0 5.0 3.0 05/25/20 05/25/20 05/25/20 05/25/20 16:19 17:00 18:10 19:35 Temp 98.4 98.5 98.4 98.5 Pulse 50 63 84 52 Resp 20 20 18 B/P (MAP) 171/96 132/62 (85) 160/71 (100) 183/74 (110) Pulse Ox 95 92 95 O2 Delivery Nasal Cannula Nasal Cannula Nasal Cannula O2 Flow Rate 3.0 3.0 3.0 05/25/20 05/25/20 05/25/20 05/25/20 20:00 20:27 22:19 22:19 Pulse 70 60 B/P (MAP) 203/86 203/86 Pulse Ox 96 O2 Delivery Nasal Cannula Nasal Cannula O2 Flow Rate 3.0 4.0 05/25/20 05/26/20 05/26/20 05/26/20 22:37 00:15 00:32 02:28 Temp 97.9 97.9 Pulse 87 72 72 Resp 20 B/P (MAP) 203/86 (125) 181/77 (111) 181/77 Pulse Ox 90 94 O2 Delivery Nasal Cannula Nasal Cannula O2 Flow Rate 3.0 4.0 05/26/20 05/26/20 05/26/20 05/26/20 02:30 07:20 07:58 08:00 Temp 98.4 98.0 98.4 98.0 Pulse 76 71 Resp 20 20 B/P (MAP) 200/84 (122) 176/73 (107) Pulse Ox 93 91 91 O2 Delivery Nasal Cannula Nasal Cannula Nasal Cannula Nasal Cannula O2 Flow Rate 3.0 3.0 4.0 4.0 05/26/20 05/26/20 05/26/20 05/26/20 08:25 08:26 08:26 10:12 Temp 98.5 98.5 Pulse 71 71 71 76 Resp 20 B/P (MAP) 176/73 176/73 176/73 165/69 (101) Pulse Ox 91 O2 Delivery Nasal Cannula O2 Flow Rate 3.0 Intake and Output 05/25/20 05/25/20 05/26/20 15:00 23:00 07:00 Intake Total 600 ml 350 ml 300 ml Output Total 300 ml Balance 300 ml 350 ml 300 ml Justicifation of Admission Dx: Justifications for Admission: Justification of Admission Dx: Yes Altered Mental Status: Altered Mental Status DARREL CASTRO MD May 26, 2020 11:08
--- NOTE | 2020-05-26 11:31 | NUR ---
SS following up with discharge planning. SS reviewed pt chart and discussed with pt RN. Pt transferred up from ICU. Pt currently on 4 Liters of oxygen. Pt on IV Zosyn and Vancomycin. PT/OT reordered. On 05/22/2020, PT recommended home. Pt has no home oxygen. SS will continue to follow for discharge planning.
--- NOTE | 2020-05-26 15:11 | PDOC ---
PROGRESS NOTES Chief Complaint Chief Complaint Acute hypoxic respiratory failure secondary to multifocal infiltrate/pleural effusions sepsis Hyperthyroidism likely Graves Dz Hypoglycemic encephalopathy, IMPROVING Severe protein-calorie malnutrition. DM2, HTN History of Present Illness History of Present Illness feels better today. no fever today so far BLOOD CULTURE Final GRAM POSITIVE COCCI IN CLUSTERS Gram-positive cocci bacteremia, 05/18/2020, 1 out of 2 bottles, ID and NELDA p ending ? contaminant. repeat cxr: IMPRESSION: Slight interval increase in partially consolidated multifocal m PT/OT Vitals Vitals Vital Signs Date Time Temp Pulse Resp B/P (MAP) Pulse Ox O2 Delivery O2 Flow Rate FiO2 05/26/20 14:02 98.3 57 20 158/70 (99) 95 Nasal Cannula 6.0 98.3 Physical Exam Physical Exam GEN Alert HEENT: Anicteric. Pupils equal, reactive, on nasal O2 NECK: Supple. LUNGS: Clear. HEART: S1, S2. ABDOMEN: Soft, bowel sounds present, nontender, nondistended. EXTREMITIES: Bilateral lower and upper extremity edema. DERMATOLOGIC: Warm, dry. No generalized rash. NEUROLOGIC: Alert and oriented x 3, grossly nonfocal. PSYCHIATRIC: Cooperative. General: Alert, Cooperative, No acute distress Heart: Regular rate, Normal S1, Normal S2, No murmurs Lungs: Clear Abdomen: Normal bowel sounds, Soft, No tenderness, No hepatosplenomegaly Labs LABS Laboratory Tests Test 05/25/20 16:52 05/25/20 20:57 05/25/20 22:09 05/26/20 03:00 Glucose (Fingerstick) 319 mg/dL (70-99) 355 mg/dL (70-99) Vancomycin Level Trough 17.7 mcg/mL (10.0-20.0) Vancomycin Last Dose Date 05/25/20 Vancomycin Last Dose Time 1030 Sodium Level 146 mmol/L (136-145) Potassium Level 3.2 mmol/L (3.5-5.1) Chloride Level 107 mmol/L (98-107) Carbon Dioxide Level 30 mmol/L (21-32) Anion Gap 9 (6-14) Blood Urea Nitrogen 25 mg/dL (7-20) Creatinine 0.9 mg/dL (0.6-1.0) Estimated GFR (Cockcroft-Gault) 62.3 Glucose Level 388 mg/dL (70-99) Calcium Level 7.5 mg/dL (8.5-10.1) Test 05/26/20 06:43 05/26/20 11:24 Glucose (Fingerstick) 363 mg/dL (70-99) 336 mg/dL (70-99) Assessment and Plan Assessmemt and Plan Problems Medical Problems: (1) Altered mental status Status: Acute (2) Hypoglycemia Status: Acute (3) Hypothermia Status: Acute Comment Review of Relevant I have reviewed the following items kavya (where applicable) has been applied. Labs Laboratory Tests Test 05/24/20 17:21 05/24/20 21:10 05/24/20 22:33 05/25/20 07:18 Glucose (Fingerstick) 398 mg/dL (70-99) 411 mg/dL (70-99) 348 mg/dL (70-99) 293 mg/dL (70-99) Test 05/25/20 10:10 05/25/20 11:37 05/25/20 16:52 05/25/20 20:57 White Blood Count 14.0 x10^3/uL (4.0-11.0) Red Blood Count 3.08 x10^6/uL (3.50-5.40) Hemoglobin 8.3 g/dL (12.0-15.5) Hematocrit 25.2 % (36.0-47.0) Mean Corpuscular Volume 82 fL (79-100) Mean Corpuscular Hemoglobin 27 pg (25-35) Mean Corpuscular Hemoglobin Concent 33 g/dL (31-37) Red Cell Distribution Width 16.4 % (11.5-14.5) Platelet Count 297 x10^3/uL (140-400) Neutrophils (%) (Auto) 93 % (31-73) Lymphocytes (%) (Auto) 4 % (24-48) Monocytes (%) (Auto) 3 % (0-9) Eosinophils (%) (Auto) 0 % (0-3) Basophils (%) (Auto) 0 % (0-3) Neutrophils # (Auto) 13.0 x10^3/uL (1.8-7.7) Lymphocytes # (Auto) 0.5 x10^3/uL (1.0-4.8) Monocytes # (Auto) 0.4 x10^3/uL (0.0-1.1) Eosinophils # (Auto) 0.0 x10^3/uL (0.0-0.7) Basophils # (Auto) 0.0 x10^3/uL (0.0-0.2) Sodium Level 144 mmol/L (136-145) Potassium Level 3.5 mmol/L (3.5-5.1) Chloride Level 108 mmol/L (98-107) Carbon Dioxide Level 27 mmol/L (21-32) Anion Gap 9 (6-14) Blood Urea Nitrogen 28 mg/dL (7-20) Creatinine 1.0 mg/dL (0.6-1.0) Estimated GFR (Cockcroft-Gault) 55.1 BUN/Creatinine Ratio 28 (6-20) Glucose Level 421 mg/dL (70-99) Calcium Level 7.2 mg/dL (8.5-10.1) Total Bilirubin 0.7 mg/dL (0.2-1.0) Aspartate Amino Transf (AST/SGOT) 100 U/L (15-37) Alanine Aminotransferase (ALT/SGPT) 67 U/L (14-59) Alkaline Phosphatase 379 U/L (46-116) Total Protein 6.6 g/dL (6.4-8.2) Albumin 2.1 g/dL (3.4-5.0) Albumin/Globulin Ratio 0.5 (1.0-1.7) Glucose (Fingerstick) 363 mg/dL (70-99) 319 mg/dL (70-99) 355 mg/dL (70-99) Test 05/25/20 22:09 05/26/20 03:00 05/26/20 06:43 05/26/20 11:24 Vancomycin Level Trough 17.7 mcg/mL (10.0-20.0) Vancomycin Last Dose Date 05/25/20 Vancomycin Last Dose Time 1030 Sodium Level 146 mmol/L (136-145) Potassium Level 3.2 mmol/L (3.5-5.1) Chloride Level 107 mmol/L (98-107) Carbon Dioxide Level 30 mmol/L (21-32) Anion Gap 9 (6-14) Blood Urea Nitrogen 25 mg/dL (7-20) Creatinine 0.9 mg/dL (0.6-1.0) Estimated GFR (Cockcroft-Gault) 62.3 Glucose Level 388 mg/dL (70-99) Calcium Level 7.5 mg/dL (8.5-10.1) Glucose (Fingerstick) 363 mg/dL (70-99) 336 mg/dL (70-99) Laboratory Tests Test 05/25/20 16:52 05/25/20 20:57 05/25/20 22:09 05/26/20 03:00 Glucose (Fingerstick) 319 mg/dL (70-99) 355 mg/dL (70-99) Vancomycin Level Trough 17.7 mcg/mL (10.0-20.0) Vancomycin Last Dose Date 05/25/20 Vancomycin Last Dose Time 1030 Sodium Level 146 mmol/L (136-145) Potassium Level 3.2 mmol/L (3.5-5.1) Chloride Level 107 mmol/L (98-107) Carbon Dioxide Level 30 mmol/L (21-32) Anion Gap 9 (6-14) Blood Urea Nitrogen 25 mg/dL (7-20) Creatinine 0.9 mg/dL (0.6-1.0) Estimated GFR (Cockcroft-Gault) 62.3 Glucose Level 388 mg/dL (70-99) Calcium Level 7.5 mg/dL (8.5-10.1) Test 05/26/20 06:43 05/26/20 11:24 Glucose (Fingerstick) 363 mg/dL (70-99) 336 mg/dL (70-99) Microbiology 05/24/20 Blood Culture - Preliminary, Resulted NO GROWTH AFTER 2 DAYS 05/18/20 Urine Culture - Final, Complete Medications Current Medications Sodium Chloride 1,000 ml @ 1,000 mls/hr 1X ONCE IV Last administered on 05/18/20at 09:29; Start 05/18/20 at 09:15; Stop 05/18/20 at 10:14; Status DC Ceftriaxone Sodium (Rocephin) 1 gm 1X ONCE IVP Last administered on 05/18/20at 09:28; Start 05/18/20 at 09:15; Stop 05/18/20 at 09:16; Status DC Ondansetron HCl (Zofran) 4 mg PRN Q8HRS PRN IV NAUSEA/VOMITING; Start 05/18/20 at 10:15; Stop 05/18/20 at 16:24; Status DC Acetaminophen (Tylenol) 650 mg PRN Q4HRS PRN PO FEVER > 100.3'F; Start 05/18/20 at 10:15; Stop 05/18/20 at 16:24; Status DC Ceftriaxone Sodium (Rocephin) 1 gm Q24H IVP Last administered on 05/24/20at 09:09; Start 05/19/20 at 09:00; Stop 05/24/20 at 18:10; Status DC Sodium Chloride (Normal Saline Flush) 3 ml QSHIFT PRN IV AFTER MEDS AND BLOOD DRAWS; Start 05/18/20 at 16:30 Sodium Chloride 1,000 ml @ 85 mls/hr [id number] IV Last administered on 05/24/20at 18:31; Start 05/18/20 at 16:20; Stop 05/25/20 at 09:44; Status DC Ondansetron HCl (Zofran) 4 mg PRN Q4HRS PRN IV NAUSEA/VOMITING; Start 05/18/20 at 16:30 Acetaminophen (Tylenol) 650 mg PRN Q4HRS PRN PO TEMP OVER 100.4F OR MILD PAIN Last administered on 05/21/20at 21:10; Start 05/18/20 at 16:30 Acetaminophen (Tylenol Supp) 650 mg PRN Q4HRS PRN ME TEMP OVER 100.4F OR MILD PAIN; Start 05/18/20 at 16:30 Sodium Monofluorophosphate (Fleet Adult) 133 ml PRN DAILY PRN ME CONSTIPATION; Start 05/18/20 at 16:30 Docusate Sodium (Colace) 100 mg PRN BID PRN PO HARD STOOLS; Start 05/18/20 at 16:30 Albuterol Sulfate (Ventolin Neb Soln) 2.5 mg PRN Q4HRS PRN NEB SHORTNESS OF BREATH Last administered on 05/21/20at 18:14; Start 05/18/20 at 16:30 Guaifenesin (Robitussin) 200 mg PRN Q4HRS PRN PO COUGH Last administered on 05/23/20at 20:00; Start 05/18/20 at 16:30 Enoxaparin Sodium (Lovenox 40mg Syringe) 40 mg Q24H SQ Last administered on 05/25/20at 16:18; Start 6/23/20 at 17:00 Aspirin (Ecotrin) 81 mg DAILY PO Last administered on 05/26/20 08:26; Start 05/19/20 at 09:00 Metoprolol Tartrate (Lopressor) 50 mg BID PO Last administered on 05/21/20at 09:16; Start 05/19/20 at 09:00; Stop 05/21/20 at 15:45; Status DC Diclofenac Sodium (Voltaren) 75 mg BID PO Last administered on 05/26/20at 11:34; Start 05/19/20 at 10:00 Hydralazine HCl (Apresoline) 100 mg BID PO Last administered on 05/21/20at 09:15; Start 05/19/20 at 09:00; Stop 05/21/20 at 15:45; Status DC Lisinopril (Prinivil) 20 mg DAILY PO Last administered on 05/21/20at 09:16; Start 05/19/20 at 10:00; Stop 05/21/20 at 15:45; Status DC Pantoprazole Sodium (Protonix) 40 mg DAILYAC PO Last administered on 05/26/20at 08:25; Start 05/19/20 at 10:00 Atorvastatin Calcium (Lipitor) 40 mg QHS PO Last administered on 05/25/20at 22:17; Start 05/19/20 at 21:00 Hydrochlorothiazide (Hydrodiuril) 25 mg DAILY PO Last administered on 05/23/20at 08:59; Start 05/19/20 at 10:00; Stop 05/23/20 at 10:22; Status DC Lactobacillus Rhamnosus (Culturelle) 1 cap BID PO Last administered on 05/26/20at 08:25; Start 05/19/20 at 21:00 Insulin Human Lispro (HumaLOG) 0-7 UNITS TIDWMEALS SQ Last administered on 05/26/20at 12:37; Start 05/19/20 at 17:00 Dextrose (Dextrose 50%-Water Syringe) 12.5 gm PRN Q15MIN PRN IV SEE COMMENTS; Start 05/19/20 at 14:15 Methimazole (Tapazole) 5 mg BID PO Last administered on 05/26/20at 08:24; Start 05/20/20 at 10:00 Insulin Glargine (Lantus Syringe) 5 unit DAILY SQ Last administered on 05/22/20at 09:15; Start 05/21/20 at 09:00; Stop 05/22/20 at 21:05; Status DC Doxycycline Hyclate (Vibra-Tab) 100 mg BID PO Last administered on 05/26/20at 08:26; Start 05/21/20 at 15:00 Furosemide (Lasix) 20 mg 1X ONCE IVP Last administered on 05/21/20at 17:05; Start 05/21/20 at 17:00; Stop 05/21/20 at 17:01; Status DC Sterile Water (WATER for RESP) 1,000 ml CONT PRN INH VIA VAPOTHERM DEVICE Last administered on 05/23/20at 16:26; Start 05/21/20 at 17:15 Albuterol Sulfate (Ventolin Neb Soln) 2.5 mg Q4HRS NEB Last administered on 05/26/20at 11:49; Start 05/21/20 at 20:00 Vancomycin HCl (Vanco Per Pharmacy) 1 each PRN DAILY PRN MC SEE COMMENTS Last administered on 05/25/20at 23:52; Start 05/22/20 at 09:00 Vancomycin HCl 2 gm/Sodium Chloride 500 ml @ 250 mls/hr 1X ONCE IV Last administered on 05/22/20at 09:05; Start 05/22/20 at 09:00; Stop 05/22/20 at 10:59; Status DC Vancomycin HCl 1.25 gm/Sodium Chloride 250 ml @ 167 mls/hr Q24H IV Last administered on 05/23/20at 09:00; Start 05/23/20 at 09:00; Stop 05/24/20 at 10:05; Status DC Vancomycin HCl (Vancomycin Trough Level) 1 each 1X ONCE MC Last administered on 05/24/20at 08:30; Start 05/24/20 at 08:30; Stop 05/24/20 at 08:31; Status DC Methylprednisolone Sodium Succinate (SOLU-Medrol 125MG VIAL) 80 mg Q8HRS IV Last administered on 05/26/20at 13:29; Start 05/22/20 at 14:00 Insulin Glargine (Lantus Syringe) 10 unit BID SQ Last administered on 05/23/20at 09:11; Start 05/22/20 at 21:00; Stop 05/23/20 at 20:17; Status DC Metoprolol Tartrate (Lopressor) 50 mg BID PO Last administered on 05/26/20 08:26; Start 05/23/20 at 10:30 Hydrochlorothiazide (Microzide) 12.5 mg DAILY PO Last administered on 05/26/20at 08:26; Start 05/24/20 at 09:00 Potassium Chloride (Klor-Con) 40 meq Q2H PO Last administered on 05/23/20at 14:58; Start 05/23/20 at 10:30; Stop 05/23/20 at 14:31; Status DC Lisinopril (Prinivil) 40 mg DAILY PO Last administered on 05/26/20at 08:25; Start 05/23/20 at 10:30 Hydralazine HCl (Apresoline) 100 mg BID PO Last administered on 05/26/20at 08:26; Start 05/23/20 at 10:30 Insulin Glargine (Lantus Syringe) 10 unit BID SQ Last administered on 05/24/20at 09:14; Start 05/23/20 at 21:00; Stop 05/24/20 at 11:28; Status DC Vancomycin HCl 1.25 gm/Sodium Chloride 250 ml @ 167 mls/hr Q12H IV Last admini stered on 05/26/20at 11:32; Start 05/24/20 at 10:30 Vancomycin HCl (Vancomycin Trough Level) 1 each 1X ONCE MC Last administered on 05/25/20at 22:00; Start 05/25/20 at 22:00; Stop 05/25/20 at 22:01; Status DC Insulin Glargine (Lantus Syringe) 12 unit BID SQ ; Start 05/24/20 at 21:00; Stop 05/24/20 at 17:27; Status DC Insulin Glargine (Lantus Syringe) 15 unit BID SQ Last administered on 05/25/20at 08:19; Start 05/24/20 at 21:00; Stop 05/25/20 at 09:47; Status DC Insulin Human Lispro (HumaLOG) 7 units 1X ONCE SQ Last administered on 05/24/20at 18:01; Start 05/24/20 at 17:30; Stop 05/24/20 at 17:31; Status DC Piperacillin Sod/ Tazobactam Sod 3.375 gm/Sodium Chloride 50 ml @ 100 mls/hr Q6HRS IV Last administered on 05/26/20at 13:29; Start 05/24/20 at 18:30 Insulin Human Lispro (HumaLOG) 11 units 1X SQ ; Start 05/24/20 at 21:30; Status Cancel Insulin Human Lispro (HumaLOG) 11 units 1X ONCE SQ Last administered on 05/24/20at 22:25; Start 05/24/20 at 22:00; Stop 05/24/20 at 22:01; Status DC Furosemide (Lasix) 20 mg 1X ONCE IVP Last administered on 05/25/20at 11:12; Start 05/25/20 at 10:00; Stop 05/25/20 at 10:01; Status DC Insulin Glargine (Lantus Syringe) 18 unit BID SQ Last administered on 05/26/20at 08:37; Start 05/25/20 at 21:00 Midazolam HCl (Versed) 2 mg 1X ONCE IV ; Start 05/25/20 at 10:30; Stop 05/25/20 at 10:31; Status Cancel Fentanyl Citrate (Fentanyl 2ml Vial) 50 mcg 1X ONCE IM ; Start 05/25/20 at 10:30; Stop 05/25/20 at 10:31; Status Cancel Hydralazine HCl (Apresoline Inj) 10 mg PRN Q4HRS PRN IVP ELEVATED BP, SEE COMMENTS Last administered on 05/26/20at 02:28; Start 05/25/20 at 16:15 Active Scripts Active Reported Actos (Pioglitazone Hcl) 45 Mg Tablet 1 Tab PO DAILY 30 Days Diclofenac Sodium 75 Mg Tablet. 1 Tab PO BID Klor-Con 10 (Potassium Chloride) 10 Meq Tablet.er 1 Tab PO DAILY 30 Days Metformin Hcl 1,000 Mg Tablet 1,000 Mg PO BIDWMEALS Omeprazole 20 Mg Capsule. 1 Cap PO DAILY Lisinopril-Hctz 20-25 Mg Tab (Lisinopril/Hydrochlorothiazide) 1 Each Tablet 1 Ta b PO DAILY Aspirin Ec (Aspirin) 81 Mg Tablet. 1 Tab PO DAILY Hydralazine Hcl 100 Mg Tablet 1 Tab PO BID Metoprolol Tartrate 50 Mg Tablet 1 Tab PO BID Rosuvastatin Calcium 10 Mg Tablet 10 Mg PO DAILY Vitals/I & O Vital Sign - Last 24 Hours 05/25/20 05/25/20 05/25/20 05/25/20 15:57 16:00 16:19 17:00 Pulse 50 50 63 Resp 20 B/P (MAP) 86/82 (83) 171/96 132/62 (85) Pulse Ox 98 95 95 O2 Delivery Nasal Cannula Nasal Cannula Nasal Cannula O2 Flow Rate 5.0 3.0 3.0 05/25/20 05/25/20 05/25/20 05/25/20 18:10 19:35 20:00 20:27 Temp 98.4 98.5 98.4 98.5 Pulse 84 52 Resp 20 18 B/P (MAP) 160/71 (100) 183/74 (110) Pulse Ox 92 95 96 O2 Delivery Nasal Cannula Nasal Cannula Nasal Cannula Nasal Cannula O2 Flow Rate 3.0 3.0 3.0 4.0 05/25/20 05/25/20 05/25/20 05/26/20 22:19 22:19 22:37 00:15 Temp 97.9 97.9 Pulse 70 60 87 72 Resp 20 B/P (MAP) 203/86 203/86 203/86 (125) 181/77 (111) Pulse Ox 90 O2 Delivery Nasal Cannula O2 Flow Rate 3.0 05/26/20 05/26/20 05/26/20 05/26/20 00:32 02:28 02:30 07:20 Temp 98.4 98.0 98.4 98.0 Pulse 72 76 71 Resp 20 20 B/P (MAP) 181/77 200/84 (122) 176/73 (107) Pulse Ox 94 93 91 O2 Delivery Nasal Cannula Nasal Cannula Nasal Cannula O2 Flow Rate 4.0 3.0 3.0 05/26/20 05/26/20 05/26/20 05/26/20 07:58 08:00 08:25 08:26 Pulse 71 71 B/P (MAP) 176/73 176/73 Pulse Ox 91 O2 Delivery Nasal Cannula Nasal Cannula O2 Flow Rate 4.0 4.0 05/26/20 05/26/20 05/26/20 05/26/20 08:26 10:12 11:49 14:02 Temp 98.5 98.3 98.5 98.3 Pulse 71 76 57 Resp 20 B/P (MAP) 176/73 165/69 (101) 158/70 (99) Pulse Ox 91 91 95 O2 Delivery Nasal Cannula Nasal Cannula Nasal Cannula O2 Flow Rate 3.0 5.0 6.0 Intake and Output 05/25/20 05/25/20 05/26/20 15:00 23:00 07:00 Intake Total 600 ml 350 ml 300 ml Output Total 300 ml Balance 300 ml 350 ml 300 ml SAMUEL BHATIA MD May 26, 2020 15:11
[2020-05-26] MEDS: ENOXAPARIN 40 MG/0.4 ML SYRINGE. SQ SCH (17:51)
[2020-05-26] MEDS ORDERED: POTASSIUM CHLORIDE 20 MEQ TABLET.ER. PO ONE (18:30)
--- NOTE | 2020-05-26 19:45 | NUR ---
Pt in bed assessment completed vss call light in reach bed alarm set will resume care and continue to monitor pt.
[2020-05-26] MEDS: ATORVASTATIN CALCIUM 40 MG TABLET. PO SCH (21:19)
[2020-05-27] VITALS (7 sets, daily range): BP systolic 167–190; BP diastolic 58–87
[2020-05-27] MEDS: PIPERACILLIN/TAZOBACTAM 3.375 GM in IV NORMAL SALINE 50ML 50 ML IV SCH ×4 (00:28→17:25)
[2020-05-27] MEDS: hydrALAZINE 20 MG/ML VIAL. IVP PRN (00:35)
[2020-05-27] MEDS: ALBUTEROL SULFATE 2.5 MG/3 ML NEBU. NEB SCH ×6 (04:00→20:00)
[2020-05-27] MEDS: methylPREDNISolone SOD SUCC PF 125 MG/2 ML VIAL. IV SCH ×2 (06:04→18:38)
[2020-05-27] MEDS: PANTOPRAZOLE 40 MG TABLET.DR. PO SCH (06:05)
[2020-05-27] MEDS: LACTOBACILLUS RHAMNOSUS GG 1 CAPSULE. PO SCH ×2 (08:18→20:43)
[2020-05-27] MEDS: methIMAzole 10 MG TABLET PO SCH ×2 (08:18→20:44)
[2020-05-27] MEDS: DICLOFENAC SODIUM 25 MG TABLET.DR PO SCH ×2 (08:19→20:43)
[2020-05-27] MEDS: ASPIRIN ENTERIC COATED 81 MG TABLET.DR. PO SCH (08:20)
[2020-05-27] MEDS: LISINOPRIL 20 MG TABLET PO SCH (08:20)
[2020-05-27] MEDS: METOPROLOL TART IMMED RELEASE 50 MG TABLET. PO SCH ×2 (08:20→20:46)
[2020-05-27] MEDS: hydroCHLOROthiazide 12.5 MG CAPSULE PO SCH (08:20)
[2020-05-27] MEDS: DOXYCYCLINE HYCLATE 100 MG TABLET PO SCH ×2 (08:20→20:44)
[2020-05-27] MEDS: VANCOMYCIN 1.25 GM in IV NORMAL SALINE 250ML 250 ML IV SCH (08:21)
[2020-05-27] MEDS: INSULIN LISPRO 300 UNITS/3 ML VIAL. SQ SCH ×3 (08:32→17:00)
[2020-05-27] MEDS: INSULIN GLARGINE SYRINGE. SQ SCH ×2 (08:33→20:54)
--- NOTE | 2020-05-27 09:32 | PDOC ---
PULMONARY PROGRESS NOTES Subjective Patient feels better cough minimally productive Vitals Vital Signs Date Time Temp Pulse Resp B/P (MAP) Pulse Ox O2 Delivery O2 Flow Rate FiO2 05/27/20 08:40 91 Nasal Cannula 5.0 05/27/20 08:20 56 190/81 05/27/20 07:00 98.0 18 98.0 ROS: No Nausea, No Chest Pain, No Abdominal Pain, No Increase Cough General: Alert, Oriented X4 Lungs: Clear Cardiovascular: S1, S2 Abdomen: Soft Neuro Exam: Alert Extremities: Other (+1 BLE edema and +@ RUE ) Skin: Warm Labs Laboratory Tests Test 05/25/20 10:10 05/25/20 11:37 05/25/20 16:52 05/25/20 20:57 White Blood Count 14.0 x10^3/uL (4.0-11.0) Red Blood Count 3.08 x10^6/uL (3.50-5.40) Hemoglobin 8.3 g/dL (12.0-15.5) Hematocrit 25.2 % (36.0-47.0) Mean Corpuscular Volume 82 fL (79-100) Mean Corpuscular Hemoglobin 27 pg (25-35) Mean Corpuscular Hemoglobin Concent 33 g/dL (31-37) Red Cell Distribution Width 16.4 % (11.5-14.5) Platelet Count 297 x10^3/uL (140-400) Neutrophils (%) (Auto) 93 % (31-73) Lymphocytes (%) (Auto) 4 % (24-48) Monocytes (%) (Auto) 3 % (0-9) Eosinophils (%) (Auto) 0 % (0-3) Basophils (%) (Auto) 0 % (0-3) Neutrophils # (Auto) 13.0 x10^3/uL (1.8-7.7) Lymphocytes # (Auto) 0.5 x10^3/uL (1.0-4.8) Monocytes # (Auto) 0.4 x10^3/uL (0.0-1.1) Eosinophils # (Auto) 0.0 x10^3/uL (0.0-0.7) Basophils # (Auto) 0.0 x10^3/uL (0.0-0.2) Sodium Level 144 mmol/L (136-145) Potassium Level 3.5 mmol/L (3.5-5.1) Chloride Level 108 mmol/L (98-107) Carbon Dioxide Level 27 mmol/L (21-32) Anion Gap 9 (6-14) Blood Urea Nitrogen 28 mg/dL (7-20) Creatinine 1.0 mg/dL (0.6-1.0) Estimated GFR (Cockcroft-Gault) 55.1 BUN/Creatinine Ratio 28 (6-20) Glucose Level 421 mg/dL (70-99) Calcium Level 7.2 mg/dL (8.5-10.1) Total Bilirubin 0.7 mg/dL (0.2-1.0) Aspartate Amino Transf (AST/SGOT) 100 U/L (15-37) Alanine Aminotransferase (ALT/SGPT) 67 U/L (14-59) Alkaline Phosphatase 379 U/L (46-116) Total Protein 6.6 g/dL (6.4-8.2) Albumin 2.1 g/dL (3.4-5.0) Albumin/Globulin Ratio 0.5 (1.0-1.7) Glucose (Fingerstick) 363 mg/dL (70-99) 319 mg/dL (70-99) 355 mg/dL (70-99) Test 05/25/20 22:09 05/26/20 03:00 05/26/20 06:43 05/26/20 11:24 Vancomycin Level Trough 17.7 mcg/mL (10.0-20.0) Vancomycin Last Dose Date 05/25/20 Vancomycin Last Dose Time 1030 Sodium Level 146 mmol/L (136-145) Potassium Level 3.2 mmol/L (3.5-5.1) Chloride Level 107 mmol/L (98-107) Carbon Dioxide Level 30 mmol/L (21-32) Anion Gap 9 (6-14) Blood Urea Nitrogen 25 mg/dL (7-20) Creatinine 0.9 mg/dL (0.6-1.0) Estimated GFR (Cockcroft-Gault) 62.3 Glucose Level 388 mg/dL (70-99) Calcium Level 7.5 mg/dL (8.5-10.1) Glucose (Fingerstick) 363 mg/dL (70-99) 336 mg/dL (70-99) Test 05/26/20 16:32 05/26/20 21:17 05/27/20 07:56 Glucose (Fingerstick) 248 mg/dL (70-99) 265 mg/dL (70-99) 292 mg/dL (70-99) Laboratory Tests Test 05/26/20 11:24 05/26/20 16:32 05/26/20 21:17 05/27/20 07:56 Glucose (Fingerstick) 336 mg/dL (70-99) 248 mg/dL (70-99) 265 mg/dL (70-99) 292 mg/dL (70-99) Medications Active Scripts Medications Dose Route/Sig Max Daily Dose Days Date Category Actos (Pioglitazone Hcl) 45 Mg Tablet 1 Tab PO DAILY 30 05/18/20 Reported Diclofenac Sodium 75 Mg Tablet.dr 1 Tab PO BID 05/18/20 Reported Klor-Con 10 (Potassium Chloride) 10 Meq Tablet.er 1 Tab PO DAILY 30 05/18/20 Reported Metformin Hcl 1,000 Mg Tablet 1,000 Mg PO BIDWMEALS 05/18/20 Reported Omeprazole 20 Mg Capsule.dr 1 Cap PO DAILY 05/18/20 Reported Lisinopril-Hctz 20-25 Mg Tab (Lisinopril/Hydrochlorothiazide) 1 Each Tablet 1 Tab PO DAILY 05/18/20 Reported Aspirin Ec (Aspirin) 81 Mg Tablet.dr 1 Tab PO DAILY 05/18/20 Reported Hydralazine Hcl 100 Mg Tablet 1 Tab PO BID 05/18/20 Reported Metoprolol Tartrate 50 Mg Tablet 1 Tab PO BID 05/18/20 Reported Rosuvastatin Calcium 10 Mg Tablet 10 Mg PO DAILY 05/18/20 Reported Comments CXR 05/23/2020 IMPRESSION: 1. Persistent infiltrates with little change. Impression . IMPRESSION: 1. Acute hypoxic respiratory failure 2. Abnormal chest x-ray with bilateral infiltrates- 3. Fever, improved 4. Hypoglycemic encephalopathy, resolved. 5. Severe protein-calorie malnutrition. 6. Mild azotemia. 7. SARS-CoV-2 negative x2 8. Negative blood cultures Plan . From my standpoint of view okay to discharge in the a.m. 6-minute walk ordered Will defer to infectious disease regarding antibiotic Up to chair SARS-CoV-2 negative x2 DM per IM HTN per IM Fever- --Tylenol PRN PT/OT KING WHITTINGTON MD May 27, 2020 09:32
--- NOTE | 2020-05-27 11:15 | PDOC ---
Infectious Disease Note Subjective Subjective Feeling good No fevers last 24 hrs O2 5L ROS ROS as mentioned above Vital Sign Vital Signs Vital Signs Date Time Temp Pulse Resp B/P (MAP) Pulse Ox O2 Delivery O2 Flow Rate FiO2 05/27/20 08:40 91 Nasal Cannula 5.0 05/27/20 08:20 56 190/81 05/27/20 07:00 98.0 18 98.0 Physical Exam PHYSICAL EXAM GENERAL: Reclining in the chair, alert, smiled, in NAD HEENT: Pupils equal, reactive, Oral cavity pink/moist. No lesions seen. NECK: Supple. LUNGS: Soft expiratory wheeze right lower lobe; no accessory muscle use HEART: S1, S2. ABDOMEN: Soft, bowel sounds present, nontender, nondistended. EXTREMITIES: Trace edema lower extremities bilaterally DERMATOLOGIC: Warm, dry. No generalized rash. NEUROLOGIC: Alert, responds appropriately PSYCHIATRIC: Cooperative. Labs Lab Laboratory Tests Test 05/26/20 11:24 05/26/20 16:32 05/26/20 21:17 05/27/20 07:56 Glucose (Fingerstick) 336 mg/dL (70-99) 248 mg/dL (70-99) 265 mg/dL (70-99) 292 mg/dL (70-99) Micro 05/18 BLOOD CULTURE LC Final Final GRAM POSITIVE COCCI FINAL ID= [MICROCOCCUS SPECIES] UNABLE TO GROW FOR SUSCEPTIBILITY TESTING MICRO CHARGES MICROCOCCUS SPECIES 05/24. BLOOD CULTURE Preliminary NO GROWTH AFTER 2 DAYS 05/26. Sputum GRAM STAIN EVALUATION Final Final This specimen is of good quality and is acceptable for routine bacterial culture. Culture results to follow. GRAM POSITIVE COCCI:FEW SQUAMOUS EPI CELL:FEW PMN (WBCs):MODERATE YEAST:MODERATE RESPIRATORY CULTURE PENDING Objective Assessment Acute hypoxic respiratory failure secondary pneumonia. [facility] - COVID-19 negative on 05/18/2020 and 05/19/2020. Fever on admission, again reported last night per team, now resolved Leukocytosis, on steroids. Hypoglycemic encephalopathy, resolved. Diabetes. Hypertension. Severe protein-calorie malnutrition. Gram-positive cocci bacteremia, 05/18/2020, 1 out of 2 bottles, ID MICROCOCCUS SPECIES, likely a contaminant. CHF Plan Plan of Care Zosyn, 05/24 Doxycycline, 05/19 vancomycin, 05/22 per pharmacy protocol. Trough 17.7 was on 05/25. Monitor renal function closely f/u cults Maintain aspiration precautions Supportive care D/c Vanc. WBC increase with steroid ,was decreasing prior to steroids and clinically improving with lower trough Attending Co-Sign Attending Co-Sign The patient was seen and interviewed as well as examined at the bedside. The chart was reviewed. The case was discussed. Agree with the plan of care. CESAR DENIS APRN May 27, 2020 11:15 CHERRY MARCANO MD May 27, 2020 16:30
[2020-05-27 12:20] LABS: BASO % 0 % (0-3); EOS % 0 % (0-3); HEMOGLOBIN 8.4 g/dL (12.0-15.5); LYMPH # 0.5 x10^3/uL (1.0-4.8); LYMPH % 2 % (24-48); MEAN CORPUSCULAR HEMOGLOBIN 28 pg (25-35); MEAN CORPUSCULAR HGB CONC 34 g/dL (31-37); MEAN CORPUSCULAR VOLUME 82 fL (79-100); MONO # 0.7 x10^3/uL (0.0-1.1); MONO % 4 % (0-9); NEUT # 18.5 x10^3/uL (1.8-7.7); NEUT % 94 % (31-73); PLATELET COUNT 359 x10^3/uL (140-400); RED BLOOD COUNT 3.03 x10^6/uL (3.50-5.40); RED CELL DISTRIBUTION WIDTH 16.4 % (11.5-14.5); WHITE BLOOD COUNT 19.7 x10^3/uL (4.0-11.0)
[2020-05-27 12:38] LABS: ALBUMIN 2.2 g/dL (3.4-5.0); ALBUMIN/GLOBULIN RATIO 0.5 (1.0-1.7); CALCIUM 7.5 mg/dL (8.5-10.1); CREATININE 1.1 mg/dL (0.6-1.0); GFR 49.4; POTASSIUM 3.5 mmol/L (3.5-5.1); TOTAL BILIRUBIN 0.7 mg/dL (0.2-1.0); TOTAL PROTEIN 6.3 g/dL (6.4-8.2)
[2020-05-27 12:44] LABS: % BANDS 2 % (0-9); % LYMPHS 3 % (24-48); % MONOS 1 % (0-10); % SEGS 94 % (35-66)
[2020-05-27 12:45] LABS: PLT ESTIMATE ADEQUATE (ADEQUATE); POLYCHROMASIA PRESENT
[2020-05-27 12:48] LABS: TARGET CELLS OCC
--- NOTE | 2020-05-27 12:51 | NUR ---
SS following up with discharge planning. SS reviewed pt chart and discussed with pt RN. Pt is currently requiring oxygen. Pt is on IV Vancomycin and Zosyn. Pt declined PT/OT on 05/26/2020 and OT recommended home today. Pt has no home oxygen at home and will need 6 minute walk prior to discharge. Pt COVID19 negative. Possible discharge to home over the weekend. SS will continue to follow for discharge planning.
--- NOTE | 2020-05-27 15:50 | PDOC ---
PROGRESS NOTES Chief Complaint Chief Complaint Acute hypoxic respiratory failure secondary to multifocal infiltrate/pleural effusions sepsis Hyperthyroidism likely Graves Dz Hypoglycemic encephalopathy, IMPROVING Severe protein-calorie malnutrition. DM2, HTN History of Present Illness History of Present Illness 05/27, decrease the steroid dose, breathign easier, may be able to transition to PO soon cont IV abx, ID following, doing well no event increase lantus for high blood sugar, decreasing the steroid will also help feels better today. no fever today so far BLOOD CULTURE Final GRAM POSITIVE COCCI IN CLUSTERS Gram-positive cocci bacteremia, 05/18/2020, 1 out of 2 bottles, ID and NELDA pending ? contaminant. repeat cxr: IMPRESSION: Slight interval increase in partially consolidated multifocal m PT/OT Vitals Vitals Vital Signs Date Time Temp Pulse Resp B/P (MAP) Pulse Ox O2 Delivery O2 Flow Rate FiO2 05/27/20 14:41 97.7 54 16 167/58 (94) 96 Nasal Cannula 5.0 97.7 Physical Exam Physical Exam GENERAL: Reclining in the chair, alert, smiled, in NAD HEENT: Pupils equal, reactive, Oral cavity pink/moist. No lesions seen. NECK: Supple. LUNGS: Soft expiratory wheeze right lower lobe; no accessory muscle use HEART: S1, S2. ABDOMEN: Soft, bowel sounds present, nontender, nondistended. EXTREMITIES: Trace edema lower extremities bilaterally DERMATOLOGIC: Warm, dry. No generalized rash. NEUROLOGIC: Alert, responds appropriately PSYCHIATRIC: Cooperative. General: Alert, Cooperative, No acute distress Heart: Regular rate, Normal S1, Normal S2, No murmurs Lungs: Clear Abdomen: Normal bowel sounds, Soft, No tenderness, No hepatosplenomegaly Labs LABS Laboratory Tests Test 05/26/20 16:32 05/26/20 21:17 05/27/20 07:56 05/27/20 12:10 Glucose (Fingerstick) 248 mg/dL (70-99) 265 mg/dL (70-99) 292 mg/dL (70-99) White Blood Count 19.7 x10^3/uL (4.0-11.0) Red Blood Count 3.03 x10^6/uL (3.50-5.40) Hemoglobin 8.4 g/dL (12.0-15.5) Hematocrit 25.0 % (36.0-47.0) Mean Corpuscular Volume 82 fL (79-100) Mean Corpuscular Hemoglobin 28 pg (25-35) Mean Corpuscular Hemoglobin Concent 34 g/dL (31-37) Red Cell Distribution Width 16.4 % (11.5-14.5) Platelet Count 359 x10^3/uL (140-400) Neutrophils (%) (Auto) 94 % (31-73) Lymphocytes (%) (Auto) 2 % (24-48) Monocytes (%) (Auto) 4 % (0-9) Eosinophils (%) (Auto) 0 % (0-3) Basophils (%) (Auto) 0 % (0-3) Neutrophils # (Auto) 18.5 x10^3/uL (1.8-7.7) Lymphocytes # (Auto) 0.5 x10^3/uL (1.0-4.8) Monocytes # (Auto) 0.7 x10^3/uL (0.0-1.1) Eosinophils # (Auto) 0.0 x10^3/uL (0.0-0.7) Basophils # (Auto) 0.0 x10^3/uL (0.0-0.2) Segmented Neutrophils % 94 % (35-66) Band Neutrophils % 2 % (0-9) Lymphocytes % 3 % (24-48) Monocytes % 1 % (0-10) Platelet Estimate Adequate (ADEQUATE) Polychromasia Present Basophilic Stippling Present Target Cells Occ Sodium Level 144 mmol/L (136-145) Potassium Level 3.5 mmol/L (3.5-5.1) Chloride Level 105 mmol/L (98-107) Carbon Dioxide Level 33 mmol/L (21-32) Anion Gap 6 (6-14) Blood Urea Nitrogen 23 mg/dL (7-20) Creatinine 1.1 mg/dL (0.6-1.0) Estimated GFR (Cockcroft-Gault) 49.4 BUN/Creatinine Ratio 21 (6-20) Glucose Level 308 mg/dL (70-99) Calcium Level 7.5 mg/dL (8.5-10.1) Total Bilirubin 0.7 mg/dL (0.2-1.0) Aspartate Amino Transf (AST/SGOT) 57 U/L (15-37) Alanine Aminotransferase (ALT/SGPT) 64 U/L (14-59) Alkaline Phosphatase 279 U/L (46-116) Total Protein 6.3 g/dL (6.4-8.2) Albumin 2.2 g/dL (3.4-5.0) Albumin/Globulin Ratio 0.5 (1.0-1.7) Test 05/27/20 12:11 Glucose (Fingerstick) 278 mg/dL (70-99) Assessment and Plan Assessmemt and Plan Problems Medical Problems: (1) Altered mental status Status: Acute (2) Hypoglycemia Status: Acute (3) Hypothermia Status: Acute Comment Review of Relevant I have reviewed the following items kavya (where applicable) has been applied. Labs Laboratory Tests Test 05/25/20 16:52 05/25/20 20:57 05/25/20 22:09 05/26/20 03:00 Glucose (Fingerstick) 319 mg/dL (70-99) 355 mg/dL (70-99) Vancomycin Level Trough 17.7 mcg/mL (10.0-20.0) Vancomycin Last Dose Date 05/25/20 Vancomycin Last Dose Time 1030 Sodium Level 146 mmol/L (136-145) Potassium Level 3.2 mmol/L (3.5-5.1) Chloride Level 107 mmol/L (98-107) Carbon Dioxide Level 30 mmol/L (21-32) Anion Gap 9 (6-14) Blood Urea Nitrogen 25 mg/dL (-20) Creatinine 0.9 mg/dL (0.6-1.0) Estimated GFR (Cockcroft-Gault) 62.3 Glucose Level 388 mg/dL (70-99) Calcium Level 7.5 mg/dL (8.5-10.1) Test 05/26/20 06:43 05/26/20 11:24 05/26/20 16:32 05/26/20 21:17 Glucose (Fingerstick) 363 mg/dL (70-99) 336 mg/dL (70-99) 248 mg/dL (70-99) 265 mg/dL (70-99) Test 05/27/20 07:56 05/27/20 12:10 05/27/20 12:11 Glucose (Fingerstick) 292 mg/dL (70-99) 278 mg/dL (70-99) White Blood Count 19.7 x10^3/uL (4.0-11.0) Red Blood Count 3.03 x10^6/uL (3.50-5.40) Hemoglobin 8.4 g/dL (12.0-15.5) Hematocrit 25.0 % (36.0-47.0) Mean Corpuscular Volume 82 fL (79-100) Mean Corpuscular Hemoglobin 28 pg (25-35) Mean Corpuscular Hemoglobin Concent 34 g/dL (31-37) Red Cell Distribution Width 16.4 % (11.5-14.5) Platelet Count 359 x10^3/uL (140-400) Neutrophils (%) (Auto) 94 % (31-73) Lymphocytes (%) (Auto) 2 % (24-48) Monocytes (%) (Auto) 4 % (0-9) Eosinophils (%) (Auto) 0 % (0-3) Basophils (%) (Auto) 0 % (0-3) Neutrophils # (Auto) 18.5 x10^3/uL (1.8-7.7) Lymphocytes # (Auto) 0.5 x10^3/uL (1.0-4.8) Monocytes # (Auto) 0.7 x10^3/uL (0.0-1.1) Eosinophils # (Auto) 0.0 x10^3/uL (0.0-0.7) Basophils # (Auto) 0.0 x10^3/uL (0.0-0.2) Segmented Neutrophils % 94 % (35-66) Band Neutrophils % 2 % (0-9) Lymphocytes % 3 % (24-48) Monocytes % 1 % (0-10) Platelet Estimate Adequate (ADEQUATE) Polychromasia Present Basophilic Stippling Present Target Cells Occ Sodium Level 144 mmol/L (136-145) Potassium Level 3.5 mmol/L (3.5-5.1) Chloride Level 105 mmol/L (98-107) Carbon Dioxide Level 33 mmol/L (21-32) Anion Gap 6 (6-14) Blood Urea Nitrogen 23 mg/dL (7-20) Creatinine 1.1 mg/dL (0.6-1.0) Estimated GFR (Cockcroft-Gault) 49.4 BUN/Creatinine Ratio 21 (6-20) Glucose Level 308 mg/dL (70-99) Calcium Level 7.5 mg/dL (8.5-10.1) Total Bilirubin 0.7 mg/dL (0.2-1.0) Aspartate Amino Transf (AST/SGOT) 57 U/L (15-37) Alanine Aminotransferase (ALT/SGPT) 64 U/L (14-59) Alkaline Phosphatase 279 U/L (46-116) Total Protein 6.3 g/dL (6.4-8.2) Albumin 2.2 g/dL (3.4-5.0) Albumin/Globulin Ratio 0.5 (1.0-1.7) Laboratory Tests Test 05/26/20 16:32 05/26/20 21:17 05/27/20 07:56 05/27/20 12:10 Glucose (Fingerstick) 248 mg/dL (70-99) 265 mg/dL (70-99) 292 mg/dL (70-99) White Blood Count 19.7 x10^3/uL (4.0-11.0) Red Blood Count 3.03 x10^6/uL (3.50-5.40) Hemoglobin 8.4 g/dL (12.0-15.5) Hematocrit 25.0 % (36.0-47.0) Mean Corpuscular Volume 82 fL (79-100) Mean Corpuscular Hemoglobin 28 pg (25-35) Mean Corpuscular Hemoglobin Concent 34 g/dL (31-37) Red Cell Distribution Width 16.4 % (11.5-14.5) Platelet Count 359 x10^3/uL (140-400) Neutrophils (%) (Auto) 94 % (31-73) Lymphocytes (%) (Auto) 2 % (24-48) Monocytes (%) (Auto) 4 % (0-9) Eosinophils (%) (Auto) 0 % (0-3) Basophils (%) (Auto) 0 % (0-3) Neutrophils # (Auto) 18.5 x10^3/uL (1.8-7.7) Lymphocytes # (Auto) 0.5 x10^3/uL (1.0-4.8) Monocytes # (Auto) 0.7 x10^3/uL (0.0-1.1) Eosinophils # (Auto) 0.0 x10^3/uL (0.0-0.7) Basophils # (Auto) 0.0 x10^3/uL (0.0-0.2) Segmented Neutrophils % 94 % (35-66) Band Neutrophils % 2 % (0-9) Lymphocytes % 3 % (24-48) Monocytes % 1 % (0-10) Platelet Estimate Adequate (ADEQUATE) Polychromasia Present Basophilic Stippling Present Target Cells Occ Sodium Level 144 mmol/L (136-145) Potassium Level 3.5 mmol/L (3.5-5.1) Chloride Level 105 mmol/L (98-107) Carbon Dioxide Level 33 mmol/L (21-32) Anion Gap 6 (6-14) Blood Urea Nitrogen 23 mg/dL (7-20) Creatinine 1.1 mg/dL (0.6-1.0) Estimated GFR (Cockcroft-Gault) 49.4 BUN/Creatinine Ratio 21 (-20) Glucose Level 308 mg/dL (70-99) Calcium Level 7.5 mg/dL (8.5-10.1) Total Bilirubin 0.7 mg/dL (0.2-1.0) Aspartate Amino Transf (AST/SGOT) 57 U/L (15-37) Alanine Aminotransferase (ALT/SGPT) 64 U/L (14-59) Alkaline Phosphatase 279 U/L (46-116) Total Protein 6.3 g/dL (6.4-8.2) Albumin 2.2 g/dL (3.4-5.0) Albumin/Globulin Ratio 0.5 (1.0-1.7) Test 05/27/20 12:11 Glucose (Fingerstick) 278 mg/dL (70-99) Microbiology 05/26/20 Gram Stain Evaluation - Final, Resulted 05/26/20 Respiratory Culture - Preliminary, Resulted 05/24/20 Blood Culture - Preliminary, Resulted NO GROWTH AFTER 3 DAYS 05/18/20 Urine Culture - Final, Complete Medications Current Medications Sodium Chloride 1,000 ml @ 1,000 mls/hr 1X ONCE IV Last administered on 05/18/20at 09:29; Start 05/18/20 at 09:15; Stop 05/18/20 at 10:14; Status DC Ceftriaxone Sodium (Rocephin) 1 gm 1X ONCE IVP Last administered on 05/18/20at 09:28; Start 05/18/20 at 09:15; Stop 05/18/20 at 09:16; Status DC Ondansetron HCl (Zofran) 4 mg PRN Q8HRS PRN IV NAUSEA/VOMITING; Start 05/18/20 at 10:15; Stop 05/18/20 at 16:24; Status DC Acetaminophen (Tylenol) 650 mg PRN Q4HRS PRN PO FEVER > 100.3'F; Start 05/18/20 at 10:15; Stop 05/18/20 at 16:24; Status DC Ceftriaxone Sodium (Rocephin) 1 gm Q24H IVP Last administered on 05/24/20at 0 9:09; Start 05/19/20 at 09:00; Stop 05/24/20 at 18:10; Status DC Sodium Chloride (Normal Saline Flush) 3 ml QSHIFT PRN IV AFTER MEDS AND BLOOD DRAWS; Start 05/18/20 at 16:30 Sodium Chloride 1,000 ml @ 85 mls/hr [id number] IV Last administered on 05/24/20at 18:31; Start 05/18/20 at 16:20; Stop 05/25/20 at 09:44; Status DC Ondansetron HCl (Zofran) 4 mg PRN Q4HRS PRN IV NAUSEA/VOMITING; Start 05/18/20 at 16:30 Acetaminophen (Tylenol) 650 mg PRN Q4HRS PRN PO TEMP OVER 100.4F OR MILD PAIN Last administered on 05/21/20at 21:10; Start 05/18/20 at 16:30 Acetaminophen (Tylenol Supp) 650 mg PRN Q4HRS PRN [place] TEMP OVER 100.4F OR MILD PAIN; Start 05/18/20 at 16:30 Sodium Monofluorophosphate (Fleet Adult) 133 ml PRN DAILY PRN [place] CONSTIPATION; Start 05/18/20 at 16:30 Docusate Sodium (Colace) 100 mg PRN BID PRN PO HARD STOOLS; Start 05/18/20 at 16:30 Albuterol Sulfate (Ventolin Neb Soln) 2.5 mg PRN Q4HRS PRN NEB SHORTNESS OF BREATH Last administered on 05/21/20at 18:14; Start 05/18/20 at 16:30 Guaifenesin (Robitussin) 200 mg PRN Q4HRS PRN PO COUGH Last administered on 05/23/20at 20:00; Start 05/18/20 at 16:30 Enoxaparin Sodium (Lovenox 40mg Syringe) 40 mg Q24H SQ Last administered on 05/26/20at 17:51; Start 05/18/20 at 17:00 Aspirin (Ecotrin) 81 mg DAILY PO Last administered on 05/27/20at 08:20; Start 05/19/20 at 09:00 Metoprolol Tartrate (Lopressor) 50 mg BID PO Last administered on 05/21/20at 09: 16; Start 05/19/20 at 09:00; Stop 05/21/20 at 15:45; Status DC Diclofenac Sodium (Voltaren) 75 mg BID PO Last administered on 05/27/20 08:19; Start 05/19/20 at 10:00 Hydralazine HCl (Apresoline) 100 mg BID PO Last administered on 05/21/20at 09:15; Start 05/19/20 at 09:00; Stop 05/21/20 at 15:45; Status DC Lisinopril (Prinivil) 20 mg DAILY PO Last administered on 05/21/20at 09:16; Start 05/19/20 at 10:00; Stop 05/21/20 at 15:45; Status DC Pantoprazole Sodium (Protonix) 40 mg DAILYAC PO Last administered on 05/27/20at 06:05; Start 05/19/20 at 10:00 Atorvastatin Calcium (Lipitor) 40 mg QHS PO Last administered on 05/26/20at 21:19; Start 05/19/20 at 21:00 Hydrochlorothiazide (Hydrodiuril) 25 mg DAILY PO Last administered on 05/23/20at 08:59; Start 05/19/20 at 10:00; Stop 05/23/20 at 10:22; Status DC Lactobacillus Rhamnosus (Culturelle) 1 cap BID PO Last administered on 05/27/20at 08:18; Start 05/19/20 at 21:00 Insulin Human Lispro (HumaLOG) 0-7 UNITS TIDWMEALS SQ Last administered on 05/27/20at 12:26; Start 05/19/20 at 17:00 Dextrose (Dextrose 50%-Water Syringe) 12.5 gm PRN Q15MIN PRN IV SEE COMMENTS; Start 05/19/20 at 14:15 Methimazole (Tapazole) 5 mg BID PO Last administered on 05/27/20 08:18; Start 05/20/20 at 10:00 Insulin Glargine (Lantus Syringe) 5 unit DAILY SQ Last administered on 05/22/20at 09:15; Start 05/21/20 at 09:00; Stop 05/22/20 at 21:05; Status DC Doxycycline Hyclate (Vibra-Tab) 100 mg BID PO Last administered on 05/27/20at 08:20; Start 05/21/20 at 15:00 Furosemide (Lasix) 20 mg 1X ONCE IVP Last administered on 05/21/20at 17:05; Start 05/21/20 at 17:00; Stop 05/21/20 at 17:01; Status DC Sterile Water (WATER for RESP) 1,000 ml CONT PRN INH VIA VAPOTHERM DEVICE Last administered on 05/23/20at 16:26; Start 05/21/20 at 17:15 Albuterol Sulfate (Ventolin Neb Soln) 2.5 mg Q4HRS NEB Last administered on 05/27/20at 12:04; Start 05/21/20 at 20:00 Vancomycin HCl (Vanco Per Pharmacy) 1 each PRN DAILY PRN MC SEE COMMENTS Last administered on 05/25/20at 23:52; Start 05/22/20 at 09:00 Vancomycin HCl 2 gm/Sodium Chloride 500 ml @ 250 mls/hr 1X ONCE IV Last administered on 05/22/20at 09:05; Start 05/22/20 at 09:00; Stop 05/22/20 at 10:5 9; Status DC Vancomycin HCl 1.25 gm/Sodium Chloride 250 ml @ 167 mls/hr Q24H IV Last administered on 05/23/20at 09:00; Start 05/23/20 at 09:00; Stop 05/24/20 at 10:05; Status DC Vancomycin HCl (Vancomycin Trough Level) 1 each 1X ONCE MC Last administered on 05/24/20at 08:30; Start 05/24/20 at 08:30; Stop 05/24/20 at 08:31; Status DC Methylprednisolone Sodium Succinate (SOLU-Medrol 125MG VIAL) 80 mg Q8HRS IV Last administered on 05/27/20 06:04; Start 05/22/20 at 14:00; Stop 05/27/20 at 12:02; Status DC Insulin Glargine (Lantus Syringe) 10 unit BID SQ Last administered on 05/23/20at 09:11; Start 05/22/20 at 21:00; Stop 05/23/20 at 20:17; Status DC Metoprolol Tartrate (Lopressor) 50 mg BID PO Last administered on 05/27/20at 08:20; Start 05/23/20 at 10:30 Hydrochlorothiazide (Microzide) 12.5 mg DAILY PO Last administered on 05/27/20 08:20; Start 05/24/20 at 09:00 Potassium Chloride (Klor-Con) 40 meq Q2H PO Last administered on 05/23/20at 14:58; Start 05/23/20 at 10:30; Stop 05/23/20 at 14:31; Status DC Lisinopril (Prinivil) 40 mg DAILY PO Last administered on 05/27/20at 08:20; Start 05/23/20 at 10:30 Hydralazine HCl (Apresoline) 100 mg BID PO Last administered on 05/27/20 08:19; Start 05/23/20 at 10:30 Insulin Glargine (Lantus Syringe) 10 unit BID SQ Last administered on 05/24/20at 09:14; Start 05/23/20 at 21:00; Stop 05/24/20 at 11:28; Status DC Vancomycin HCl 1.25 gm/Sodium Chloride 250 ml @ 167 mls/hr Q12H IV Last administered on 05/27/20at 08:21; Start 05/24/20 at 10:30 Vancomycin HCl (Vancomycin Trough Level) 1 each 1X ONCE MC Last administered on 05/25/20at 22:00; Start 05/25/20 at 22:00; Stop 05/25/20 at 22:01; Status DC Insulin Glargine (Lantus Syringe) 12 unit BID SQ ; Start 05/24/20 at 21:00; Stop 05/24/20 at 17:27; Status DC Insulin Glargine (Lantus Syringe) 15 unit BID SQ Last administered on 05/25/20at 08:19; Start 05/24/20 at 21:00; Stop 05/25/20 at 09:47; Status DC Insulin Human Lispro (HumaLOG) 7 units 1X ONCE SQ Last administered on 05/24/20at 18:01; Start 05/24/20 at 17:30; Stop 05/24/20 at 17:31; Status DC Piperacillin Sod/ Tazobactam Sod 3.375 gm/Sodium Chloride 50 ml @ 100 mls/hr Q6HRS IV Last administered on 05/27/20at 12:21; Start 05/24/20 at 18:30 Insulin Human Lispro (HumaLOG) 11 units 1X SQ ; Start 05/24/20 at 21:30; Status Cancel Insulin Human Lispro (HumaLOG) 11 units 1X ONCE SQ Last administered on 05/24/20at 22:25; Start 05/24/20 at 22:00; Stop 05/24/20 at 22:01; Status DC Furosemide (Lasix) 20 mg 1X ONCE IVP Last administered on 05/25/20at 11:12; Start 05/25/20 at 10:00; Stop 05/25/20 at 10:01; Status DC Insulin Glargine (Lantus Syringe) 18 unit BID SQ Last administered on 05/27/20at 08:33; Start 05/25/20 at 21:00; Stop 05/27/20 at 12:00; Status DC Midazolam HCl (Versed) 2 mg 1X ONCE IV ; Start 05/25/20 at 10:30; Stop 05/25/20 at 10:31; Status Cancel Fentanyl Citrate (Fentanyl 2ml Vial) 50 mcg 1X ONCE IM ; Start 05/25/20 at 10:30; Stop 05/25/20 at 10:31; Status Cancel Hydralazine HCl (Apresoline Inj) 10 mg PRN Q4HRS PRN IVP ELEVATED BP, SEE COMMENTS Last administered on 05/27/20at 00:35; Start 05/25/20 at 16:15 Potassium Chloride (Klor-Con) 40 meq 1X ONCE PO Last administered on 05/26/20at 18:43; Start 05/26/20 at 18:30; Stop 05/26/20 at 18:31; Status DC Insulin Glargine (Lantus Syringe) 22 unit BID SQ ; Start 05/27/20 at 21:00 Methylprednisolone Sodium Succinate (SOLU-Medrol 125MG VIAL) 40 mg Q12HR IV ; Start 05/27/20 at 19:00; Stop 06/03/20 at 03:00 Active Scripts Active Reported Actos (Pioglitazone Hcl) 45 Mg Tablet 1 Tab PO DAILY 30 Days Diclofenac Sodium 75 Mg Tablet.dr Elias Tab PO BID Klor-Con 10 (Potassium Chloride) 10 Meq Tablet.er 1 Tab PO DAILY 30 Days Metformin Hcl 1,000 Mg Tablet 1,000 Mg PO BIDWMEALS Omeprazole 20 Mg Capsule. 1 Cap PO DAILY Lisinopril-Hctz 20-25 Mg Tab (Lisinopril/Hydrochlorothiazide) 1 Each Tablet 1 Tab PO DAILY Aspirin Ec (Aspirin) 81 Mg Tablet. 1 Tab PO DAILY Hydralazine Hcl 100 Mg Tablet 1 Tab PO BID Metoprolol Tartrate 50 Mg Tablet 1 Tab PO BID Rosuvastatin Calcium 10 Mg Tablet 10 Mg PO DAILY Vitals/I & O Vital Sign - Last 24 Hours 05/26/20 05/26/20 05/26/20 05/26/20 18:24 19:45 19:45 21:20 Temp 97.7 97.7 Pulse 73 52 Resp 20 B/P (MAP) 149/67 (94) Pulse Ox 92 95 O2 Delivery Nasal Cannula Nasal Cannula Nasal Cannula O2 Flow Rate 6.0 6.0 5.0 05/26/20 05/26/20 05/27/20 05/27/20 21:20 23:00 00:05 00:32 Temp 99.0 99.0 Pulse 52 70 51 Resp 18 B/P (MAP) 149/67 180/76 (110) 178/87 (117) Pulse Ox 93 O2 Delivery Nasal Cannula Nasal Cannula O2 Flow Rate 5.0 5.0 05/27/20 05/27/20 05/27/20 05/27/20 00:35 03:00 07:00 08:00 Temp 98.0 98.0 98.0 98.0 Pulse 52 57 56 Resp 18 18 B/P (MAP) 178/87 179/79 (112) 190/81 (117) Pulse Ox 4 91 O2 Delivery Nasal Cannula Nasal Cannula Nasal Cannula O2 Flow Rate 5.0 6.0 5.0 05/27/20 05/27/20 05/27/20 05/27/20 08:19 08:20 08:20 08:40 Pulse 56 56 56 B/P (MAP) 190/81 190/81 190/81 Pulse Ox 91 O2 Delivery Nasal Cannula O2 Flow Rate 5.0 05/27/20 05/27/20 05/27/20 11:00 12:05 14:41 Temp 98.0 97.7 98.0 97.7 Pulse 59 54 Resp 16 16 B/P (MAP) 178/60 (99) 167/58 (94) Pulse Ox 95 91 96 O2 Delivery Nasal Cannula Nasal Cannula Nasal Cannula O2 Flow Rate 5.0 5.0 5.0 Intake and Output 05/26/20 05/26/20 05/27/20 15:00 23:00 07:00 Intake Total 600 ml 500 ml 200 ml Balance 600 ml 500 ml 200 ml Justicifation of Admission Dx: Justifications for Admission: Justification of Admission Dx: Yes Altered Mental Status: Altered Mental Status SAMUEL BHATIA MD May 27, 2020 15:50
[2020-05-27] MEDS: NYSTATIN 100,000 UNITS/ML 5 ML ORAL.SUSP. SWSW SCH ×2 (17:00→20:45)
[2020-05-27] MEDS: ENOXAPARIN 40 MG/0.4 ML SYRINGE. SQ SCH (17:25)
[2020-05-27] MEDS ORDERED: INSULIN LISPRO 300 UNITS/3 ML VIAL. SQ ONE (17:30)
[2020-05-27] MEDS: ATORVASTATIN CALCIUM 40 MG TABLET. PO SCH (20:43)
[2020-05-28] MEDS: PIPERACILLIN/TAZOBACTAM 3.375 GM in IV NORMAL SALINE 50ML 50 ML IV SCH ×3 (00:14→12:09)
[2020-05-28 02:00] VITALS: BP 168/69
[2020-05-28] MEDS: ALBUTEROL SULFATE 2.5 MG/3 ML NEBU. NEB SCH ×6 (04:00→19:04)
[2020-05-28] MEDS: PANTOPRAZOLE 40 MG TABLET.DR. PO SCH (06:18)
[2020-05-28 07:00] VITALS: BP 180/77
--- NOTE | 2020-05-28 07:00 | NUR ---
Pt bladder scanned and shown to have 920 mL in bladder, this nurse put in a straight cath and remove 900 mL of urine
[2020-05-28] MEDS: INSULIN LISPRO 300 UNITS/3 ML VIAL. SQ SCH ×3 (07:45→17:20)
[2020-05-28] MEDS: NYSTATIN 100,000 UNITS/ML 5 ML ORAL.SUSP. SWSW SCH ×4 (08:51→20:59)
[2020-05-28] MEDS: DICLOFENAC SODIUM 25 MG TABLET.DR PO SCH ×2 (08:52→21:01)
[2020-05-28] MEDS: LACTOBACILLUS RHAMNOSUS GG 1 CAPSULE. PO SCH ×2 (08:52→21:02)
[2020-05-28] MEDS: methylPREDNISolone SOD SUCC PF 125 MG/2 ML VIAL. IV SCH (08:52)
[2020-05-28] MEDS: METOPROLOL TART IMMED RELEASE 50 MG TABLET. PO SCH ×2 (08:53→21:02)
[2020-05-28] MEDS: methIMAzole 10 MG TABLET PO SCH ×2 (08:53→21:00)
[2020-05-28] MEDS: ASPIRIN ENTERIC COATED 81 MG TABLET.DR. PO SCH (08:53)
[2020-05-28] MEDS: DOXYCYCLINE HYCLATE 100 MG TABLET PO SCH (08:53)
[2020-05-28] MEDS: LISINOPRIL 20 MG TABLET PO SCH (08:53)
[2020-05-28] MEDS: hydroCHLOROthiazide 12.5 MG CAPSULE PO SCH (08:57)
--- NOTE | 2020-05-28 08:58 | PDOC ---
PULMONARY PROGRESS NOTES Subjective Patient feels better cough minimally productive Vitals Vital Signs Date Time Temp Pulse Resp B/P (MAP) Pulse Ox O2 Delivery O2 Flow Rate FiO2 05/28/20 08:12 96 Nasal Cannula 5.0 05/28/20 07:00 98.1 60 16 180/77 (111) 98.1 ROS: No Nausea, No Chest Pain, No Abdominal Pain, No Increase Cough General: Alert, Oriented X4 Lungs: Clear Cardiovascular: S1, S2 Abdomen: Soft Neuro Exam: Alert Extremities: Other (+1 BLE edema and +@ RUE ) Skin: Warm Labs Laboratory Tests Test 05/26/20 11:24 05/26/20 16:32 05/26/20 21:17 05/27/20 07:56 Glucose (Fingerstick) 336 mg/dL (70-99) 248 mg/dL (70-99) 265 mg/dL (70-99) 292 mg/dL (70-99) Test 05/27/20 12:10 05/27/20 12:11 05/27/20 17:08 05/27/20 20:15 White Blood Count 19.7 x10^3/uL (4.0-11.0) Red Blood Count 3.03 x10^6/uL (3.50-5.40) Hemoglobin 8.4 g/dL (12.0-15.5) Hematocrit 25.0 % (36.0-47.0) Mean Corpuscular Volume 82 fL (79-100) Mean Corpuscular Hemoglobin 28 pg (25-35) Mean Corpuscular Hemoglobin Concent 34 g/dL (31-37) Red Cell Distribution Width 16.4 % (11.5-14.5) Platelet Count 359 x10^3/uL (140-400) Neutrophils (%) (Auto) 94 % (31-73) Lymphocytes (%) (Auto) 2 % (24-48) Monocytes (%) (Auto) 4 % (0-9) Eosinophils (%) (Auto) 0 % (0-3) Basophils (%) (Auto) 0 % (0-3) Neutrophils # (Auto) 18.5 x10^3/uL (1.8-7.7) Lymphocytes # (Auto) 0.5 x10^3/uL (1.0-4.8) Monocytes # (Auto) 0.7 x10^3/uL (0.0-1.1) Eosinophils # (Auto) 0.0 x10^3/uL (0.0-0.7) Basophils # (Auto) 0.0 x10^3/uL (0.0-0.2) Segmented Neutrophils % 94 % (35-66) Band Neutrophils % 2 % (0-9) Lymphocytes % 3 % (24-48) Monocytes % 1 % (0-10) Platelet Estimate Adequate (ADEQUATE) Polychromasia Present Basophilic Stippling Present Target Cells Occ Sodium Level 144 mmol/L (136-145) Potassium Level 3.5 mmol/L (3.5-5.1) Chloride Level 105 mmol/L (98-107) Carbon Dioxide Level 33 mmol/L (21-32) Anion Gap 6 (6-14) Blood Urea Nitrogen 23 mg/dL (7-20) Creatinine 1.1 mg/dL (0.6-1.0) Estimated GFR (Cockcroft-Gault) 49.4 BUN/Creatinine Ratio 21 (6-20) Glucose Level 308 mg/dL (70-99) Calcium Level 7.5 mg/dL (8.5-10.1) Total Bilirubin 0.7 mg/dL (0.2-1.0) Aspartate Amino Transf (AST/SGOT) 57 U/L (15-37) Alanine Aminotransferase (ALT/SGPT) 64 U/L (14-59) Alkaline Phosphatase 279 U/L (46-116) Total Protein 6.3 g/dL (6.4-8.2) Albumin 2.2 g/dL (3.4-5.0) Albumin/Globulin Ratio 0.5 (1.0-1.7) Glucose (Fingerstick) 278 mg/dL (70-99) 390 mg/dL (70-99) 264 mg/dL (70-99) Test 05/28/20 07:20 Glucose (Fingerstick) 145 mg/dL (70-99) Laboratory Tests Test 05/27/20 12:10 05/27/20 12:11 05/27/20 17:08 05/27/20 20:15 White Blood Count 19.7 x10^3/uL (4.0-11.0) Red Blood Count 3.03 x10^6/uL (3.50-5.40) Hemoglobin 8.4 g/dL (12.0-15.5) Hematocrit 25.0 % (36.0-47.0) Mean Corpuscular Volume 82 fL (79-100) Mean Corpuscular Hemoglobin 28 pg (25-35) Mean Corpuscular Hemoglobin Concent 34 g/dL (31-37) Red Cell Distribution Width 16.4 % (11.5-14.5) Platelet Count 359 x10^3/uL (140-400) Neutrophils (%) (Auto) 94 % (31-73) Lymphocytes (%) (Auto) 2 % (24-48) Monocytes (%) (Auto) 4 % (0-9) Eosinophils (%) (Auto) 0 % (0-3) Basophils (%) (Auto) 0 % (0-3) Neutrophils # (Auto) 18.5 x10^3/uL (1.8-7.7) Lymphocytes # (Auto) 0.5 x10^3/uL (1.0-4.8) Monocytes # (Auto) 0.7 x10^3/uL (0.0-1.1) Eosinophils # (Auto) 0.0 x10^3/uL (0.0-0.7) Basophils # (Auto) 0.0 x10^3/uL (0.0-0.2) Segmented Neutrophils % 94 % (35-66) Band Neutrophils % 2 % (0-9) Lymphocytes % 3 % (24-48) Monocytes % 1 % (0-10) Platelet Estimate Adequate (ADEQUATE) Polychromasia Present Basophilic Stippling Present Target Cells Occ Sodium Level 144 mmol/L (136-145) Potassium Level 3.5 mmol/L (3.5-5.1) Chloride Level 105 mmol/L (98-107) Carbon Dioxide Level 33 mmol/L (21-32) Anion Gap 6 (6-14) Blood Urea Nitrogen 23 mg/dL (7-20) Creatinine 1.1 mg/dL (0.6-1.0) Estimated GFR (Cockcroft-Gault) 49.4 BUN/Creatinine Ratio 21 (6-20) Glucose Level 308 mg/dL (70-99) Calcium Level 7.5 mg/dL (8.5-10.1) Total Bilirubin 0.7 mg/dL (0.2-1.0) Aspartate Amino Transf (AST/SGOT) 57 U/L (15-37) Alanine Aminotransferase (ALT/SGPT) 64 U/L (14-59) Alkaline Phosphatase 279 U/L (46-116) Total Protein 6.3 g/dL (6.4-8.2) Albumin 2.2 g/dL (3.4-5.0) Albumin/Globulin Ratio 0.5 (1.0-1.7) Glucose (Fingerstick) 278 mg/dL (70-99) 390 mg/dL (70-99) 264 mg/dL (70-99) Test 05/28/20 07:20 Glucose (Fingerstick) 145 mg/dL (70-99) Medications Active Scripts Medications Dose Route/Sig Max Daily Dose Days Date Category Actos (Pioglitazone Hcl) 45 Mg Tablet 1 Tab PO DAILY 30 05/18/20 Reported Diclofenac Sodium 75 Mg Tablet.dr 1 Tab PO BID 05/18/20 Reported Klor-Con 10 (Potassium Chloride) 10 Meq Tablet.er 1 Tab PO DAILY 30 05/18/20 Reported Metformin Hcl 1,000 Mg Tablet 1,000 Mg PO BIDWMEALS 05/18/20 Reported Omeprazole 20 Mg Capsule.dr 1 Cap PO DAILY 05/18/20 Reported Lisinopril-Hctz 20-25 Mg Tab (Lisinopril/Hydrochlorothiazide) 1 Each Tablet 1 Tab PO DAILY 05/18/20 Reported Aspirin Ec (Aspirin) 81 Mg Tablet.dr 1 Tab PO DAILY 05/18/20 Reported Hydralazine Hcl 100 Mg Tablet 1 Tab PO BID 05/18/20 Reported Metoprolol Tartrate 50 Mg Tablet 1 Tab PO BID 05/18/20 Reported Rosuvastatin Calcium 10 Mg Tablet 10 Mg PO DAILY 05/18/20 Reported Comments CXR 05/23/2020 IMPRESSION: 1. Persistent infiltrates with little change. Impression . IMPRESSION: 1. Acute hypoxic respiratory failure 2. Abnormal chest x-ray with bilateral infiltrates- 3. Fever, improved 4. Hypoglycemic encephalopathy, resolved. 5. Severe protein-calorie malnutrition. 6. Mild azotemia. 7. SARS-CoV-2 negative x2 8. Negative blood cultures Plan . Spoke with RN, possible discharge later today or tomorrow From my standpoint of view okay to discharge in the a.m. 6-minute walk ordered to be performed Will defer to infectious disease regarding antibiotic Up to chair SARS-CoV-2 negative x2 DM per IM HTN per IM Fever- --Tylenol PRN PT/OT KING WHITTINGTON MD May 28, 2020 08:58
[2020-05-28] MEDS: INSULIN GLARGINE SYRINGE. SQ SCH ×2 (09:20→21:11)
--- NOTE | 2020-05-28 10:05 | PDOC ---
Infectious Disease Note Subjective Subjective Feels good ate 100% of her breakfast No fevers last 48 hrs No increase work of breathing Remains onO2 5L Denies chills ROS ROS as mentioned above Vital Sign Vital Signs Vital Signs Date Time Temp Pulse Resp B/P (MAP) Pulse Ox O2 Delivery O2 Flow Rate FiO2 05/28/20 09:12 60 180/77 05/28/20 08:12 96 Nasal Cannula 5.0 05/28/20 07:00 98.1 16 98.1 Physical Exam PHYSICAL EXAM GENERAL: Propped up in bed, alert, smiling HEENT: Pupils equal, reactive, Oral cavity pink, moist, + thrush NECK: Supple. LUNGS: CTAB, no accessory muscle use HEART: S1, S2. regular ABDOMEN: Soft, bowel sounds present, nontender, nondistended. EXTREMITIES: Trace edema lower extremities bilaterally DERMATOLOGIC: Warm, dry. No generalized rash. NEUROLOGIC: Alert, responds appropriately PSYCHIATRIC: Cooperative. Labs Lab Laboratory Tests Test 05/27/20 12:10 05/27/20 12:11 05/27/20 17:08 05/27/20 20:15 White Blood Count 19.7 x10^3/uL (4.0-11.0) Red Blood Count 3.03 x10^6/uL (3.50-5.40) Hemoglobin 8.4 g/dL (12.0-15.5) Hematocrit 25.0 % (36.0-47.0) Mean Corpuscular Volume 82 fL (79-100) Mean Corpuscular Hemoglobin 28 pg (25-35) Mean Corpuscular Hemoglobin Concent 34 g/dL (31-37) Red Cell Distribution Width 16.4 % (11.5-14.5) Platelet Count 359 x10^3/uL (140-400) Neutrophils (%) (Auto) 94 % (31-73) Lymphocytes (%) (Auto) 2 % (24-48) Monocytes (%) (Auto) 4 % (0-9) Eosinophils (%) (Auto) 0 % (0-3) Basophils (%) (Auto) 0 % (0-3) Neutrophils # (Auto) 18.5 x10^3/uL (1.8-7.7) Lymphocytes # (Auto) 0.5 x10^3/uL (1.0-4.8) Monocytes # (Auto) 0.7 x10^3/uL (0.0-1.1) Eosinophils # (Auto) 0.0 x10^3/uL (0.0-0.7) Basophils # (Auto) 0.0 x10^3/uL (0.0-0.2) Segmented Neutrophils % 94 % (35-66) Band Neutrophils % 2 % (0-9) Lymphocytes % 3 % (24-48) Monocytes % 1 % (0-10) Platelet Estimate Adequate (ADEQUATE) Polychromasia Present Basophilic Stippling Present Target Cells Occ Sodium Level 144 mmol/L (136-145) Potassium Level 3.5 mmol/L (3.5-5.1) Chloride Level 105 mmol/L (98-107) Carbon Dioxide Level 33 mmol/L (21-32) Anion Gap 6 (6-14) Blood Urea Nitrogen 23 mg/dL (7-20) Creatinine 1.1 mg/dL (0.6-1.0) Estimated GFR (Cockcroft-Gault) 49.4 BUN/Creatinine Ratio 21 (-20) Glucose Level 308 mg/dL (70-99) Calcium Level 7.5 mg/dL (8.5-10.1) Total Bilirubin 0.7 mg/dL (0.2-1.0) Aspartate Amino Transf (AST/SGOT) 57 U/L (15-37) Alanine Aminotransferase (ALT/SGPT) 64 U/L (14-59) Alkaline Phosphatase 279 U/L (46-116) Total Protein 6.3 g/dL (6.4-8.2) Albumin 2.2 g/dL (3.4-5.0) Albumin/Globulin Ratio 0.5 (1.0-1.7) Glucose (Fingerstick) 278 mg/dL (70-99) 390 mg/dL (70-99) 264 mg/dL (70-99) Test 05/28/20 07:20 Glucose (Fingerstick) 145 mg/dL (70-99) Micro 05/18 BLOOD CULTURE LC Final Final GRAM POSITIVE COCCI FINAL ID= [MICROCOCCUS SPECIES] UNABLE TO GROW FOR SUSCEPTIBILITY TESTING MICRO CHARGES MICROCOCCUS SPECIES 05/24. BLOOD CULTURE Preliminary NO GROWTH AFTER 3 DAYS 05/26. RESPIRATORY CULTURE Preliminary Preliminary MODERATE Mixed upper respiratory gerri on 05/27/20 at 1115 Objective Assessment Acute hypoxic respiratory failure secondary pneumonia. Resp gerri - COVID-19 negative on 05/18/2020 and 05/19/2020. Fever on admission, again reported last night per team, now resolved Leukocytosis, on steroids. Hypoglycemic encephalopathy, resolved. Diabetes. Hypertension. Severe protein-calorie malnutrition. Gram-positive cocci bacteremia, 05/18/2020, 1 out of 2 bottles, ID MICROCOCCUS SPECIES, likely a contaminant. CHF Thrush Plan Plan of Care Zosyn, 05/24 Doxycycline, 05/19 Nystatin SWSW, 05/27 off vancomycin BC neg to date Maintain aspiration precautions Supportive care PT/OT D/w nursing D/c Doxy and dose Augmentin for 3 days D/w family - clinically much better on 3.5 liters Hypoxia per pulm - IV steroids Glucose per primary Attending Co-Sign Attending Co-Sign The patient was seen and interviewed as well as examined at the bedside. The chart was reviewed. The case was discussed. Agree with the plan of care. CESAR DENIS APRN May 28, 2020 10:05 CHERRY MARCANO MD May 28, 2020 15:03
[2020-05-28 10:49] VITALS: BP 155/65
--- NOTE | 2020-05-28 13:46 | PDOC ---
PROGRESS NOTES Chief Complaint Chief Complaint Acute hypoxic respiratory failure secondary to multifocal infiltrate/pleural effusions sepsis Hyperthyroidism likely Graves Dz Hypoglycemic encephalopathy, IMPROVING Severe protein-calorie malnutrition. DM2, HTN History of Present Illness History of Present Illness 05/28 urinary retention, required straight cath today, cont current IV abx, PULm and ID following 05/27, decreased the steroid dose, breathign easier, may be able to transition to PO soon cont IV abx, ID following, doing well no event increase lantus for high blood sugar, decreasing the steroid will also help Vitals Vitals Vital Signs Date Time Temp Pulse Resp B/P (MAP) Pulse Ox O2 Delivery O2 Flow Rate FiO2 05/28/20 11:33 93 Nasal Cannula 5.0 05/28/20 10:49 98.8 71 16 155/65 (95) 98.8 Physical Exam Physical Exam GENERAL: Propped up in bed, alert, smiling HEENT: Pupils equal, reactive, Oral cavity pink, moist, + thrush NECK: Supple. LUNGS: CTAB, no accessory muscle use HEART: S1, S2. regular ABDOMEN: Soft, bowel sounds present, nontender, nondistended. EXTREMITIES: Trace edema lower extremities bilaterally DERMATOLOGIC: Warm, dry. No generalized rash. NEUROLOGIC: Alert, responds appropriately PSYCHIATRIC: Cooperative. General: Alert, Cooperative, No acute distress Heart: Regular rate, Normal S1, Normal S2, No murmurs Lungs: Clear Abdomen: Normal bowel sounds, Soft, No tenderness, No hepatosplenomegaly Labs LABS Laboratory Tests Test 05/27/20 17:08 05/27/20 20:15 05/28/20 07:20 05/28/20 11:37 Glucose (Fingerstick) 390 mg/dL (70-99) 264 mg/dL (70-99) 145 mg/dL (70-99) 204 mg/dL (70-99) Assessment and Plan Assessmemt and Plan Problems Medical Problems: (1) Altered mental status Status: Acute (2) Hypoglycemia Status: Acute (3) Hypothermia Status: Acute Comment Review of Relevant I have reviewed the following items kavya (where applicable) has been applied. Labs Laboratory Tests Test 05/26/20 16:32 05/26/20 21:17 05/27/20 07:56 05/27/20 12:10 Glucose (Fingerstick) 248 mg/dL (70-99) 265 mg/dL (70-99) 292 mg/dL (70-99) White Blood Count 19.7 x10^3/uL (4.0-11.0) Red Blood Count 3.03 x10^6/uL (3.50-5.40) Hemoglobin 8.4 g/dL (12.0-15.5) Hematocrit 25.0 % (36.0-47.0) Mean Corpuscular Volume 82 fL (79-100) Mean Corpuscular Hemoglobin 28 pg (25-35) Mean Corpuscular Hemoglobin Concent 34 g/dL (31-37) Red Cell Distribution Width 16.4 % (11.5-14.5) Platelet Count 359 x10^3/uL (140-400) Neutrophils (%) (Auto) 94 % (31-73) Lymphocytes (%) (Auto) 2 % (24-48) Monocytes (%) (Auto) 4 % (0-9) Eosinophils (%) (Auto) 0 % (0-3) Basophils (%) (Auto) 0 % (0-3) Neutrophils # (Auto) 18.5 x10^3/uL (1.8-7.7) Lymphocytes # (Auto) 0.5 x10^3/uL (1.0-4.8) Monocytes # (Auto) 0.7 x10^3/uL (0.0-1.1) Eosinophils # (Auto) 0.0 x10^3/uL (0.0-0.7) Basophils # (Auto) 0.0 x10^3/uL (0.0-0.2) Segmented Neutrophils % 94 % (35-66) Band Neutrophils % 2 % (0-9) Lymphocytes % 3 % (24-48) Monocytes % 1 % (0-10) Platelet Estimate Adequate (ADEQUATE) Polychromasia Present Basophilic Stippling Present Target Cells Occ Sodium Level 144 mmol/L (136-145) Potassium Level 3.5 mmol/L (3.5-5.1) Chloride Level 105 mmol/L (98-107) Carbon Dioxide Level 33 mmol/L (21-32) Anion Gap 6 (6-14) Blood Urea Nitrogen 23 mg/dL (7-20) Creatinine 1.1 mg/dL (0.6-1.0) Estimated GFR (Cockcroft-Gault) 49.4 BUN/Creatinine Ratio 21 (6-20) Glucose Level 308 mg/dL (70-99) Calcium Level 7.5 mg/dL (8.5-10.1) Total Bilirubin 0.7 mg/dL (0.2-1.0) Aspartate Amino Transf (AST/SGOT) 57 U/L (15-37) Alanine Aminotransferase (ALT/SGPT) 64 U/L (14-59) Alkaline Phosphatase 279 U/L (46-116) Total Protein 6.3 g/dL (6.4-8.2) Albumin 2.2 g/dL (3.4-5.0) Albumin/Globulin Ratio 0.5 (1.0-1.7) Test 05/27/20 12:11 05/27/20 17:08 05/27/20 20:15 05/28/20 07:20 Glucose (Fingerstick) 278 mg/dL (70-99) 390 mg/dL (70-99) 264 mg/dL (70-99) 145 mg/dL (70-99) Test 05/28/20 11:37 Glucose (Fingerstick) 204 mg/dL (70-99) Laboratory Tests Test 05/27/20 17:08 05/27/20 20:15 05/28/20 07:20 05/28/20 11:37 Glucose (Fingerstick) 390 mg/dL (70-99) 264 mg/dL (70-99) 145 mg/dL (70-99) 204 mg/dL (70-99) Microbiology 05/26/20 Gram Stain Evaluation - Final, Complete 05/26/20 Respiratory Culture - Final, Complete 05/24/20 Blood Culture - Preliminary, Resulted NO GROWTH AFTER 4 DAYS 05/18/20 Urine Culture - Final, Complete Medications Current Medications Sodium Chloride 1,000 ml @ 1,000 mls/hr 1X ONCE IV Last administered on 05/18/20at 09:29; Start 05/18/20 at 09:15; Stop 05/18/20 at 10:14; Status DC Ceftriaxone Sodium (Rocephin) 1 gm 1X ONCE IVP Last administered on 05/18/20at 09:28; Start 05/18/20 at 09:15; Stop 05/18/20 at 09:16; Status DC Ondansetron HCl (Zofran) 4 mg PRN Q8HRS PRN IV NAUSEA/VOMITING; Start 05/18/20 at 10:15; Stop 05/18/20 at 16:24; Status DC Acetaminophen (Tylenol) 650 mg PRN Q4HRS PRN PO FEVER > 100.3'F; Start 05/18/20 at 10:15; Stop 05/18/20 at 16:24; Status DC Ceftriaxone Sodium (Rocephin) 1 gm Q24H IVP Last administered on 05/24/20at 09:09; Start 05/19/20 at 09:00; Stop 05/24/20 at 18:10; Status DC Sodium Chloride (Normal Saline Flush) 3 ml QSHIFT PRN IV AFTER MEDS AND BLOOD DRAWS; Start 05/18/20 at 16:30 Sodium Chloride 1,000 ml @ 85 mls/hr [id number] IV Last administered on 05/24/20at 18:31; Start 05/18/20 at 16:20; Stop 05/25/20 at 09:44; Status DC Ondansetron HCl (Zofran) 4 mg PRN Q4HRS PRN IV NAUSEA/VOMITING; Start 05/18/20 at 16:30 Acetaminophen (Tylenol) 650 mg PRN Q4HRS PRN PO TEMP OVER 100.4F OR MILD PAIN Last administered on 05/21/20at 21:10; Start 05/18/20 at 16:30 Acetaminophen (Tylenol Supp) 650 mg PRN Q4HRS PRN ND TEMP OVER 100.4F OR MILD PAIN; Start 05/18/20 at 16:30 Sodium Monofluorophosphate (Fleet Adult) 133 ml PRN DAILY PRN ND CONSTIPATION; Start 05/18/20 at 16:30 Docusate Sodium (Colace) 100 mg PRN BID PRN PO HARD STOOLS; Start 05/18/20 at 16:30 Albuterol Sulfate (Ventolin Neb Soln) 2.5 mg PRN Q4HRS PRN NEB SHORTNESS OF BREATH Last administered on 05/21/20at 18:14; Start 05/18/20 at 16:30 Guaifenesin (Robitussin) 200 mg PRN Q4HRS PRN PO COUGH Last administered on 05/23/20at 20:00; Start 05/18/20 at 16:30 Enoxaparin Sodium (Lovenox 40mg Syringe) 40 mg Q24H SQ Last administered on 05/27/20 17:25; Start 05/18/20 at 17:00 Aspirin (Ecotrin) 81 mg DAILY PO Last administered on 05/28/20 08:53; Start 05/19/20 at 09:00 Metoprolol Tartrate (Lopressor) 50 mg BID PO Last administered on 05/21/20 09:16; Start 05/19/20 at 09:00; Stop 05/21/20 at 15:45; Status DC Diclofenac Sodium (Voltaren) 75 mg BID PO Last administered on 05/28/20 08:52; Start 05/19/20 at 10:00 Hydralazine HCl (Apresoline) 100 mg BID PO Last administered on 05/21/20 09:15; Start 05/19/20 at 09:00; Stop 05/21/20 at 15:45; Status DC Lisinopril (Prinivil) 20 mg DAILY PO Last administered on 05/21/20at 09:16; Start 05/19/20 at 10:00; Stop 05/21/20 at 15:45; Status DC Pantoprazole Sodium (Protonix) 40 mg DAILYAC PO Last administered on 05/28/20 06:18; Start 05/19/20 at 10:00 Atorvastatin Calcium (Lipitor) 40 mg QHS PO Last administered on 05/27/20at 20:43; Start 05/19/20 at 21:00 Hydrochlorothiazide (Hydrodiuril) 25 mg DAILY PO Last administered on 05/23/20at 08:59; Start 05/19/20 at 10:00; Stop 05/23/20 at 10:22; Status DC Lactobacillus Rhamnosus (Culturelle) 1 cap BID PO Last administered on 05/28/20 08:52; Start 05/19/20 at 21:00 Insulin Human Lispro (HumaLOG) 0-7 UNITS TIDWMEALS SQ Last administered on 05/28/20at 12:16; Start 05/19/20 at 17:00 Dextrose (Dextrose 50%-Water Syringe) 12.5 gm PRN Q15MIN PRN IV SEE COMMENTS; Start 05/19/20 at 14:15 Methimazole (Tapazole) 5 mg BID PO Last administered on 05/28/20 08:53; Start 05/20/20 at 10:00 Insulin Glargine (Lantus Syringe) 5 unit DAILY SQ Last administered on at 09:15; Start 05/21/20 at 09:00; Stop 05/22/20 at 21:05; Status DC Doxycycline Hyclate (Vibra-Tab) 100 mg BID PO Last administered on 05/28/20 08:53; Start 05/21/20 at 15:00 Furosemide (Lasix) 20 mg 1X ONCE IVP Last administered on 05/21/20 17:05; Start 05/21/20 at 17:00; Stop 05/21/20 at 17:01; Status DC Sterile Water (WATER for RESP) 1,000 ml CONT PRN INH VIA VAPOTHERM DEVICE Last administered on 05/23/20at 16:26; Start 05/21/20 at 17:15 Albuterol Sulfate (Ventolin Neb Soln) 2.5 mg Q4HRS NEB Last administered on 05/28/20at 11:32; Start 05/21/20 at 20:00 Vancomycin HCl (Vanco Per Pharmacy) 1 each PRN DAILY PRN MC SEE COMMENTS Last administered on 05/25/20at 23:52; Start 05/22/20 at 09:00; Stop 05/27/20 at 16:29; Status DC Vancomycin HCl 2 gm/Sodium Chloride 500 ml @ 250 mls/hr 1X ONCE IV Last administered on 05/22/20at 09:05; Start 05/22/20 at 09:00; Stop 05/22/20 at 10:59; Status DC Vancomycin HCl 1.25 gm/Sodium Chloride 250 ml @ 167 mls/hr Q24H IV Last administered on 05/23/20at 09:00; Start 05/23/20 at 09:00; Stop 05/24/20 at 10:05; Status DC Vancomycin HCl (Vancomycin Trough Level) 1 each 1X ONCE MC Last administered on 05/24/20at 08:30; Start 05/24/20 at 08:30; Stop 05/24/20 at 08:31; Status DC Methylprednisolone Sodium Succinate (SOLU-Medrol 125MG VIAL) 80 mg Q8HRS IV Last administered on 05/27/20at 06:04; Start 05/22/20 at 14:00; Stop 05/27/20 at 12:02; Status DC Insulin Glargine (Lantus Syringe) 10 unit BID SQ Last administered on 05/23/20at 09:11; Start 05/22/20 at 21:00; Stop 05/23/20 at 20:17; Status DC Metoprolol Tartrate (Lopressor) 50 mg BID PO Last administered on 05/28/20 08:53; Start 05/23/20 at 10:30 Hydrochlorothiazide (Microzide) 12.5 mg DAILY PO Last administered on 05/28/20 08:57; Start 05/24/20 at 09:00 Potassium Chloride (Klor-Con) 40 meq Q2H PO Last administered on 05/23/20 14:58; Start 05/23/20 at 10:30; Stop 05/23/20 at 14:31; Status DC Lisinopril (Prinivil) 40 mg DAILY PO Last administered on 05/28/20 08:53; Start 05/23/20 at 10:30 Hydralazine HCl (Apresoline) 100 mg BID PO Last administered on 05/28/20 09:12; Start 05/23/20 at 10:30 Insulin Glargine (Lantus Syringe) 10 unit BID SQ Last administered on 05/24/20at 09:14; Start 05/23/20 at 21:00; Stop 05/24/20 at 11:28; Status DC Vancomycin HCl 1.25 gm/Sodium Chloride 250 ml @ 167 mls/hr Q12H IV Last administered on 05/27/20 08:21; Start 05/24/20 at 10:30; Stop 05/27/20 at 16:26; Status DC Vancomycin HCl (Vancomycin Trough Level) 1 each 1X ONCE MC Last administered on 05/25/20at 22:00; Start 05/25/20 at 22:00; Stop 05/25/20 at 22:01; Status DC Insulin Glargine (Lantus Syringe) 12 unit BID SQ ; Start 05/24/20 at 21:00; Stop 05/24/20 at 17:27; Status DC Insulin Glargine (Lantus Syringe) 15 unit BID SQ Last administered on 05/25/20at 08:19; Start 05/24/20 at 21:00; Stop 05/25/20 at 09:47; Status DC Insulin Human Lispro (HumaLOG) 7 units 1X ONCE SQ Last administered on 05/24/20at 18:01; Start 05/24/20 at 17:30; Stop 05/24/20 at 17:31; Status DC Piperacillin Sod/ Tazobactam Sod 3.375 gm/Sodium Chloride 50 ml @ 100 mls/hr Q6HRS IV Last administered on 05/28/20at 12:09; Start 05/24/20 at 18:30 Insulin Human Lispro (HumaLOG) 11 units 1X SQ ; Start 05/24/20 at 21:30; Status Cancel Insulin Human Lispro (HumaLOG) 11 units 1X ONCE SQ Last administered on 05/24/20at 22:25; Start 05/24/20 at 22:00; Stop 05/24/20 at 22:01; Status DC Furosemide (Lasix) 20 mg 1X ONCE IVP Last administered on 05/25/20at 11:12; Start 05/25/20 at 10:00; Stop 05/25/20 at 10:01; Status DC Insulin Glargine (Lantus Syringe) 18 unit BID SQ Last administered on 05/27/20at 08:33; Start 05/25/20 at 21:00; Stop 05/27/20 at 12:00; Status DC Midazolam HCl (Versed) 2 mg 1X ONCE IV ; Start 05/25/20 at 10:30; Stop 05/25/20 at 10:31; Status Cancel Fentanyl Citrate (Fentanyl 2ml Vial) 50 mcg 1X ONCE IM ; Start 05/25/20 at 10:30; Stop 05/25/20 at 10:31; Status Cancel Hydralazine HCl (Apresoline Inj) 10 mg PRN Q4HRS PRN IVP ELEVATED BP, SEE COMMENTS Last administered on 05/27/20at 00:35; Start 05/25/20 at 16:15 Potassium Chloride (Klor-Con) 40 meq 1X ONCE PO Last administered on 05/26/20at 18:43; Start 05/26/20 at 18:30; Stop 05/26/20 at 18:31; Status DC Insulin Glargine (Lantus Syringe) 22 unit BID SQ Last administered on 7/3/20at 09:20; Start 05/27/20 at 21:00 Methylprednisolone Sodium Succinate (SOLU-Medrol 125MG VIAL) 40 mg Q12HR IV Last administered on 05/28/20at 08:52; Start 05/27/20 at 19:00; Stop 05/28/20 at 13:37; Status DC Nystatin (Nystatin Oral Susp) 5 ml [id number] Last administered on 05/28/20at 12:13; Start 05/27/20 at 17:00 Insulin Human Lispro (HumaLOG) 20 units 1X ONCE SQ Last administered on 05/27/20at 17:32; Start 05/27/20 at 17:30; Stop 05/27/20 at 17:31; Status DC Methylprednisolone Sodium Succinate (SOLU-Medrol 40MG VIAL) 40 mg Q12HR IV ; Start 05/28/20 at 21:00; Stop 06/03/20 at 03:00 Active Scripts Active Reported Actos (Pioglitazone Hcl) 45 Mg Tablet 1 Tab PO DAILY 30 Days Diclofenac Sodium 75 Mg Tablet.dr 1 Tab PO BID Klor-Con 10 (Potassium Chloride) 10 Meq Tablet.er 1 Tab PO DAILY 30 Days Metformin Hcl 1,000 Mg Tablet 1,000 Mg PO BIDWMEALS Omeprazole 20 Mg Capsule.dr 1 Cap PO DAILY Lisinopril-Hctz 20-25 Mg Tab (Lisinopril/Hydrochlorothiazide) 1 Each Tablet 1 Tab PO DAILY Aspirin Ec (Aspirin) 81 Mg Tablet.dr 1 Tab PO DAILY Hydralazine Hcl 100 Mg Tablet 1 Tab PO BID Metoprolol Tartrate 50 Mg Tablet 1 Tab PO BID Rosuvastatin Calcium 10 Mg Tablet 10 Mg PO DAILY Vitals/I & O Vital Sign - Last 24 Hours 05/27/20 05/27/20 05/27/20 05/27/20 14:41 16:07 19:06 19:30 Temp 97.7 97.7 97.7 97.7 Pulse 54 64 Resp 16 16 B/P (MAP) 167/58 (94) 176/72 (106) Pulse Ox 96 97 O2 Delivery Nasal Cannula Nasal Cannula Nasal Cannula Nasal Cannula O2 Flow Rate 5.0 5.0 5.0 5.0 05/27/20 05/27/20 05/27/20 05/27/20 20:10 20:45 20:46 22:05 Temp 97.8 97.8 Pulse 64 64 61 Resp 16 B/P (MAP) 176/72 176/72 176/70 (105) Pulse Ox 97 O2 Delivery Nasal Cannula Nasal Cannula O2 Flow Rate 5.0 98.0 05/28/20 05/28/20 05/28/20 05/28/20 00:49 02:00 04:19 07:00 Temp 97.4 98.1 97.4 98.1 Pulse 51 60 Resp 16 16 B/P (MAP) 168/69 (102) 180/77 (111) Pulse Ox 96 91 O2 Delivery Nasal Cannula Nasal Cannula Nasal Cannula O2 Flow Rate 5.0 5.0 5.0 5.0 05/28/20 05/28/20 05/28/20 05/28/20 08:00 08:12 08:53 08:53 Pulse 60 60 B/P (MAP) 180/77 180/77 Pulse Ox 96 O2 Delivery Nasal Cannula Nasal Cannula O2 Flow Rate 5.0 5.0 05/28/20 05/28/20 05/28/20 09:12 10:49 11:33 Temp 98.8 98.8 Pulse 60 71 Resp 16 B/P (MAP) 180/77 155/65 (95) Pulse Ox 90 93 O2 Delivery Nasal Cannula Nasal Cannula O2 Flow Rate 5.0 5.0 Intake and Output 05/27/20 05/27/20 05/28/20 15:00 23:00 07:00 Intake Total 360 ml 480 ml 450 ml Output Total 0 ml Balance 360 ml 480 ml 450 ml Justicifation of Admission Dx: Justifications for Admission: Justification of Admission Dx: Yes Altered Mental Status: Altered Mental Status SAMUEL BHATIA MD May 28, 2020 13:45
[2020-05-28 15:00] VITALS: BP 150/55
[2020-05-28] MEDS: ENOXAPARIN 40 MG/0.4 ML SYRINGE. SQ SCH (17:16)
--- NOTE | 2020-05-28 18:41 | NUR ---
Pt bladder scanned and found to have 300 mL in bladder put in a straight cath and removed 325 mL Addendum: 05/28/20 at 1842 by CLAY PARIKH RN RN Amended: Links added.
[2020-05-28 19:05] VITALS: BP 187/75
[2020-05-28] MEDS: methylPREDNISolone SOD SUCC PF 40 MG/ML VIAL. IV SCH (21:00)
[2020-05-28] MEDS: AMOXICILLIN/K CLAV 875/125MG TABLET. PO SCH (21:00)
[2020-05-28] MEDS: ATORVASTATIN CALCIUM 40 MG TABLET. PO SCH (21:04)
[2020-05-28 23:45] VITALS: BP 186/80
[2020-05-29] VITALS (7 sets, daily range): BP systolic 136–192; BP diastolic 54–84
[2020-05-29] MEDS: hydrALAZINE 20 MG/ML VIAL. IVP PRN ×2 (00:09→11:06)
[2020-05-29] MEDS: ALBUTEROL SULFATE 2.5 MG/3 ML NEBU. NEB SCH ×7 (00:27→23:06)
--- NOTE | 2020-05-29 03:15 | NUR ---
Patient had greater then 485 in bladder and patient refused straight cath and maldonado placed. Assisted patient to bedside commode and had 150 urine output. Educated patient that needed to remove urine by straight cath or by maldonado placement and refused. Educated patient on risk and encouraged fluids.
[2020-05-29] MEDS: INSULIN LISPRO 300 UNITS/3 ML VIAL. SQ SCH ×3 (08:00→17:29)
[2020-05-29] MEDS: methIMAzole 10 MG TABLET PO SCH ×2 (08:11→20:29)
[2020-05-29] MEDS: METOPROLOL TART IMMED RELEASE 50 MG TABLET. PO SCH ×2 (08:12→20:30)
[2020-05-29] MEDS: ASPIRIN ENTERIC COATED 81 MG TABLET.DR. PO SCH (08:12)
[2020-05-29] MEDS: PANTOPRAZOLE 40 MG TABLET.DR. PO SCH (08:12)
[2020-05-29] MEDS: DICLOFENAC SODIUM 25 MG TABLET.DR PO SCH ×2 (08:13→20:30)
[2020-05-29] MEDS: LACTOBACILLUS RHAMNOSUS GG 1 CAPSULE. PO SCH ×2 (08:13→20:30)
[2020-05-29] MEDS: LISINOPRIL 20 MG TABLET PO SCH (08:13)
[2020-05-29] MEDS: hydroCHLOROthiazide 12.5 MG CAPSULE PO SCH (08:14)
[2020-05-29] MEDS: NYSTATIN 100,000 UNITS/ML 5 ML ORAL.SUSP. SWSW SCH ×4 (08:15→20:28)
[2020-05-29] MEDS: AMOXICILLIN/K CLAV 875/125MG TABLET. PO SCH ×2 (08:15→20:30)
[2020-05-29] MEDS: methylPREDNISolone SOD SUCC PF 40 MG/ML VIAL. IV SCH ×2 (08:16→20:31)
[2020-05-29] MEDS: INSULIN GLARGINE SYRINGE. SQ SCH ×2 (08:24→20:35)
--- NOTE | 2020-05-29 09:36 | PDOC ---
PULMONARY PROGRESS NOTES Subjective Patient sitting EOB, feels better today, remains on N/C oxygen nursing reports decreased U/O Vitals Vital Signs Date Time Temp Pulse Resp B/P (MAP) Pulse Ox O2 Delivery O2 Flow Rate FiO2 05/29/20 08:14 71 183/77 05/29/20 07:48 98.1 20 90 Nasal Cannula 5.0 98.1 ROS: No Nausea, No Chest Pain, No Abdominal Pain, No Increase Cough General: Alert, Oriented X4 Lungs: Clear Cardiovascular: S1, S2 Abdomen: Soft Neuro Exam: Alert Extremities: Other (+1 BLE edema and +@ RUE ) Skin: Warm Labs Laboratory Tests Test 05/27/20 12:10 05/27/20 12:11 05/27/20 17:08 05/27/20 20:15 White Blood Count 19.7 x10^3/uL (4.0-11.0) Red Blood Count 3.03 x10^6/uL (3.50-5.40) Hemoglobin 8.4 g/dL (12.0-15.5) Hematocrit 25.0 % (36.0-47.0) Mean Corpuscular Volume 82 fL (79-100) Mean Corpuscular Hemoglobin 28 pg (25-35) Mean Corpuscular Hemoglobin Concent 34 g/dL (31-37) Red Cell Distribution Width 16.4 % (11.5-14.5) Platelet Count 359 x10^3/uL (140-400) Neutrophils (%) (Auto) 94 % (31-73) Lymphocytes (%) (Auto) 2 % (24-48) Monocytes (%) (Auto) 4 % (0-9) Eosinophils (%) (Auto) 0 % (0-3) Basophils (%) (Auto) 0 % (0-3) Neutrophils # (Auto) 18.5 x10^3/uL (1.8-7.7) Lymphocytes # (Auto) 0.5 x10^3/uL (1.0-4.8) Monocytes # (Auto) 0.7 x10^3/uL (0.0-1.1) Eosinophils # (Auto) 0.0 x10^3/uL (0.0-0.7) Basophils # (Auto) 0.0 x10^3/uL (0.0-0.2) Segmented Neutrophils % 94 % (35-66) Band Neutrophils % 2 % (0-9) Lymphocytes % 3 % (24-48) Monocytes % 1 % (0-10) Platelet Estimate Adequate (ADEQUATE) Polychromasia Present Basophilic Stippling Present Target Cells Occ Sodium Level 144 mmol/L (136-145) Potassium Level 3.5 mmol/L (3.5-5.1) Chloride Level 105 mmol/L (98-107) Carbon Dioxide Level 33 mmol/L (21-32) Anion Gap 6 (6-14) Blood Urea Nitrogen 23 mg/dL (7-20) Creatinine 1.1 mg/dL (0.6-1.0) Estimated GFR (Cockcroft-Gault) 49.4 BUN/Creatinine Ratio 21 (6-20) Glucose Level 308 mg/dL (70-99) Calcium Level 7.5 mg/dL (8.5-10.1) Total Bilirubin 0.7 mg/dL (0.2-1.0) Aspartate Amino Transf (AST/SGOT) 57 U/L (15-37) Alanine Aminotransferase (ALT/SGPT) 64 U/L (14-59) Alkaline Phosphatase 279 U/L (46-116) Total Protein 6.3 g/dL (6.4-8.2) Albumin 2.2 g/dL (3.4-5.0) Albumin/Globulin Ratio 0.5 (1.0-1.7) Glucose (Fingerstick) 278 mg/dL (70-99) 390 mg/dL (70-99) 264 mg/dL (70-99) Test 05/28/20 07:20 05/28/20 11:37 05/28/20 17:02 05/28/20 20:35 Glucose (Fingerstick) 145 mg/dL (70-99) 204 mg/dL (70-99) 230 mg/dL (70-99) 235 mg/dL (70-99) Test 05/29/20 07:04 Glucose (Fingerstick) 146 mg/dL (70-99) Laboratory Tests Test 05/28/20 11:37 05/28/20 17:02 05/28/20 20:35 05/29/20 07:04 Glucose (Fingerstick) 204 mg/dL (70-99) 230 mg/dL (70-99) 235 mg/dL (70-99) 146 mg/dL (70-99) Medications Active Scripts Medications Dose Route/Sig Max Daily Dose Days Date Category Actos (Pioglitazone Hcl) 45 Mg Tablet 1 Tab PO DAILY 30 05/18/20 Reported Diclofenac Sodium 75 Mg Tablet.dr 1 Tab PO BID 05/18/20 Reported Klor-Con 10 (Potassium Chloride) 10 Meq Tablet.er 1 Tab PO DAILY 30 05/18/20 Reported Metformin Hcl 1,000 Mg Tablet 1,000 Mg PO BIDWMEALS 05/18/20 Reported Omeprazole 20 Mg Capsule.dr 1 Cap PO DAILY 05/18/20 Reported Lisinopril-Hctz 20-25 Mg Tab (Lisinopril/Hydrochlorothiazide) 1 Each Tablet 1 Tab PO DAILY 05/18/20 Reported Aspirin Ec (Aspirin) 81 Mg Tablet.dr 1 Tab PO DAILY 05/18/20 Reported Hydralazine Hcl 100 Mg Tablet 1 Tab PO BID 05/18/20 Reported Metoprolol Tartrate 50 Mg Tablet 1 Tab PO BID 05/18/20 Reported Rosuvastatin Calcium 10 Mg Tablet 10 Mg PO DAILY 05/18/20 Reported Comments CXR 05/23/2020 IMPRESSION: 1. Persistent infiltrates with little change. Impression . IMPRESSION: 1. Acute hypoxic respiratory failure--improved 2. Abnormal chest x-ray with bilateral infiltrates-improved 3. Fever, resolved 4. Hypoglycemic encephalopathy, resolved. 5. Severe protein-calorie malnutrition. 6. Mild azotemia. 7. SARS-CoV-2 negative x2 8. Negative blood cultures Plan . Stable from pulmonary standpoint Taper steroids ABX per ID Up to chair TID and as tolerated SARS-CoV-2 negative x2 DM per IM HTN per IM PT/OT D/W KING MONTALVO MD May 29, 2020 09:36
--- NOTE | 2020-05-29 11:44 | PDOC ---
PROGRESS NOTES Chief Complaint Chief Complaint Acute hypoxic respiratory failure secondary to multifocal infiltrate/pleural effusions sepsis Hyperthyroidism likely Graves Dz Hypoglycemic encephalopathy, IMPROVING Severe protein-calorie malnutrition. DM2, HTN History of Present Illness History of Present Illness 05/29, 6 min wlk, 4 liters at rest, 10 with exertion, on 5 liters now BP too high, PRN hydralazine given, will add norvasc to mult-agent BP 05/28 urinary retention, required straight cath today, cont current IV abx, PULm and ID following 05/27, decreased the steroid dose, breathign easier, may be able to transition to PO soon cont IV abx, ID following, doing well no event increase lantus for high blood sugar, decreasing the steroid will also help Vitals Vitals Vital Signs Date Time Temp Pulse Resp B/P (MAP) Pulse Ox O2 Delivery O2 Flow Rate FiO2 05/29/20 11:14 91 Nasal Cannula 4.0 05/29/20 11:06 62 188/76 05/29/20 10:55 97.8 20 97.8 Physical Exam Physical Exam GENERAL: Propped up in bed, alert, smiling HEENT: Pupils equal, reactive, Oral cavity pink, moist, + thrush NECK: Supple. LUNGS: CTAB, no accessory muscle use HEART: S1, S2. regular ABDOMEN: Soft, bowel sounds present, nontender, nondistended. EXTREMITIES: Trace edema lower extremities bilaterally DERMATOLOGIC: Warm, dry. No generalized rash. NEUROLOGIC: Alert, responds appropriately PSYCHIATRIC: Cooperative. General: Alert, Cooperative, No acute distress Heart: Regular rate, Normal S1, Normal S2, No murmurs Lungs: Clear Abdomen: Normal bowel sounds, Soft, No tenderness, No hepatosplenomegaly Labs LABS Laboratory Tests Test 05/28/20 17:02 05/28/20 20:35 05/29/20 07:04 05/29/20 11:39 Glucose (Fingerstick) 230 mg/dL (70-99) 235 mg/dL (70-99) 146 mg/dL (70-99) 255 mg/dL (70-99) Assessment and Plan Assessmemt and Plan Problems Medical Problems: (1) Altered mental status Status: Acute (2) Hypoglycemia Status: Acute (3) Hypothermia Status: Acute Comment Review of Relevant I have reviewed the following items kavya (where applicable) has been applied. Labs Laboratory Tests Test 05/27/20 12:10 05/27/20 12:11 05/27/20 17:08 05/27/20 20:15 White Blood Count 19.7 x10^3/uL (4.0-11.0) Red Blood Count 3.03 x10^6/uL (3.50-5.40) Hemoglobin 8.4 g/dL (12.0-15.5) Hematocrit 25.0 % (36.0-47.0) Mean Corpuscular Volume 82 fL (79-100) Mean Corpuscular Hemoglobin 28 pg (25-35) Mean Corpuscular Hemoglobin Concent 34 g/dL (31-37) Red Cell Distribution Width 16.4 % (11.5-14.5) Platelet Count 359 x10^3/uL (140-400) Neutrophils (%) (Auto) 94 % (31-73) Lymphocytes (%) (Auto) 2 % (24-48) Monocytes (%) (Auto) 4 % (0-9) Eosinophils (%) (Auto) 0 % (0-3) Basophils (%) (Auto) 0 % (0-3) Neutrophils # (Auto) 18.5 x10^3/uL (1.8-7.7) Lymphocytes # (Auto) 0.5 x10^3/uL (1.0-4.8) Monocytes # (Auto) 0.7 x10^3/uL (0.0-1.1) Eosinophils # (Auto) 0.0 x10^3/uL (0.0-0.7) Basophils # (Auto) 0.0 x10^3/uL (0.0-0.2) Segmented Neutrophils % 94 % (35-66) Band Neutrophils % 2 % (0-9) Lymphocytes % 3 % (24-48) Monocytes % 1 % (0-10) Platelet Estimate Adequate (ADEQUATE) Polychromasia Present Basophilic Stippling Present Target Cells Occ Sodium Level 144 mmol/L (136-145) Potassium Level 3.5 mmol/L (3.5-5.1) Chloride Level 105 mmol/L (98-107) Carbon Dioxide Level 33 mmol/L (21-32) Anion Gap 6 (6-14) Blood Urea Nitrogen 23 mg/dL (7-20) Creatinine 1.1 mg/dL (0.6-1.0) Estimated GFR (Cockcroft-Gault) 49.4 BUN/Creatinine Ratio 21 (6-20) Glucose Level 308 mg/dL (70-99) Calcium Level 7.5 mg/dL (8.5-10.1) Total Bilirubin 0.7 mg/dL (0.2-1.0) Aspartate Amino Transf (AST/SGOT) 57 U/L (15-37) Alanine Aminotransferase (ALT/SGPT) 64 U/L (14-59) Alkaline Phosphatase 279 U/L (46-116) Total Protein 6.3 g/dL (6.4-8.2) Albumin 2.2 g/dL (3.4-5.0) Albumin/Globulin Ratio 0.5 (1.0-1.7) Glucose (Fingerstick) 278 mg/dL (70-99) 390 mg/dL (70-99) 264 mg/dL (70-99) Test 05/28/20 07:20 05/28/20 11:37 05/28/20 17:02 05/28/20 20:35 Glucose (Fingerstick) 145 mg/dL (70-99) 204 mg/dL (70-99) 230 mg/dL (70-99) 235 mg/dL (70-99) Test 05/29/20 07:04 05/29/20 11:39 Glucose (Fingerstick) 146 mg/dL (70-99) 255 mg/dL (70-99) Laboratory Tests Test 05/28/20 17:02 05/28/20 20:35 05/29/20 07:04 05/29/20 11:39 Glucose (Fingerstick) 230 mg/dL (70-99) 235 mg/dL (70-99) 146 mg/dL (70-99) 255 mg/dL (70-99) Microbiology 05/26/20 Gram Stain Evaluation - Final, Complete 05/26/20 Respiratory Culture - Final, Complete 05/24/20 Blood Culture - Preliminary, Resulted NO GROWTH AFTER 4 DAYS 05/18/20 Urine Culture - Final, Complete Medications Current Medications Sodium Chloride 1,000 ml @ 1,000 mls/hr 1X ONCE IV Last administered on 04/27 02/12at 09:29; Start 05/18/20 at 09:15; Stop 05/18/20 at 10:14; Status DC Ceftriaxone Sodium (Rocephin) 1 gm 1X ONCE IVP Last administered on 05/18/20at 09:28; Start 05/18/20 at 09:15; Stop 05/18/20 at 09:16; Status DC Ondansetron HCl (Zofran) 4 mg PRN Q8HRS PRN IV NAUSEA/VOMITING; Start 05/18/20 at 10:15; Stop 05/18/20 at 16:24; Status DC Acetaminophen (Tylenol) 650 mg PRN Q4HRS PRN PO FEVER > 100.3'F; Start 05/18/20 at 10:15; Stop 05/18/20 at 16:24; Status DC Ceftriaxone Sodium (Rocephin) 1 gm Q24H IVP Last administered on 05/24/20at 09:09; Start 05/19/20 at 09:00; Stop 05/24/20 at 18:10; Status DC Sodium Chloride (Normal Saline Flush) 3 ml QSHIFT PRN IV AFTER MEDS AND BLOOD DRAWS; Start 05/18/20 at 16:30 Sodium Chloride 1,000 ml @ 85 mls/hr [id number] IV Last administered on 05/24/20at 18:31; Start 05/18/20 at 16:20; Stop 05/25/20 at 09:44; Status DC Ondansetron HCl (Zofran) 4 mg PRN Q4HRS PRN IV NAUSEA/VOMITING; Start 05/18/20 at 16:30 Acetaminophen (Tylenol) 650 mg PRN Q4HRS PRN PO TEMP OVER 100.4F OR MILD PAIN Last administered on 05/21/20at 21:10; Start 05/18/20 at 16:30 Acetaminophen (Tylenol Supp) 650 mg PRN Q4HRS PRN OK TEMP OVER 100.4F OR MILD PAIN; Start 05/18/20 at 16:30 Sodium Monofluorophosphate (Fleet Adult) 133 ml PRN DAILY PRN OK CONSTIPATION; Start 05/18/20 at 16:30 Docusate Sodium (Colace) 100 mg PRN BID PRN PO HARD STOOLS; Start 05/18/20 at 16:30 Albuterol Sulfate (Ventolin Neb Soln) 2.5 mg PRN Q4HRS PRN NEB SHORTNESS OF BREATH Last administered on 05/21/20 18:14; Start 05/18/20 at 16:30 Guaifenesin (Robitussin) 200 mg PRN Q4HRS PRN PO COUGH Last administered on 05/23/20 20:00; Start 05/18/20 at 16:30 Enoxaparin Sodium (Lovenox 40mg Syringe) 40 mg Q24H SQ Last administered on 05/28/20 17:16; Start 05/18/20 at 17:00 Aspirin (Ecotrin) 81 mg DAILY PO Last administered on 05/29/20 08:12; Start 05/19/20 at 09:00 Metoprolol Tartrate (Lopressor) 50 mg BID PO Last administered on 05/21/20 09:16; Start 05/19/20 at 09:00; Stop 05/21/20 at 15:45; Status DC Diclofenac Sodium (Voltaren) 75 mg BID PO Last administered on 05/29/20 08:13; Start 05/19/20 at 10:00 Hydralazine HCl (Apresoline) 100 mg BID PO Last administered on 05/21/20 09:15; Start 05/19/20 at 09:00; Stop 05/21/20 at 15:45; Status DC Lisinopril (Prinivil) 20 mg DAILY PO Last administered on 05/21/20 09:16; Start 05/19/20 at 10:00; Stop 05/21/20 at 15:45; Status DC Pantoprazole Sodium (Protonix) 40 mg DAILYAC PO Last administered on 05/29/20 08:12; Start 05/19/20 at 10:00 Atorvastatin Calcium (Lipitor) 40 mg QHS PO Last administered on 05/28/20 21:04; Start 05/19/20 at 21:00 Hydrochlorothiazide (Hydrodiuril) 25 mg DAILY PO Last administered on 05/23/20 08:59; Start 05/19/20 at 10:00; Stop 05/23/20 at 10:22; Status DC Lactobacillus Rhamnosus (Culturelle) 1 cap BID PO Last administered on 05/29/20 08:13; Start 05/19/20 at 21:00 Insulin Human Lispro (HumaLOG) 0-7 UNITS TIDWMEALS SQ Last administered on 05/28/20at 17:20; Start 05/19/20 at 17:00 Dextrose (Dextrose 50%-Water Syringe) 12.5 gm PRN Q15MIN PRN IV SEE COMMENTS; Start 05/19/20 at 14:15 Methimazole (Tapazole) 5 mg BID PO Last administered on 05/29/20at 08:11; Start 05/20/20 at 10:00 Insulin Glargine (Lantus Syringe) 5 unit DAILY SQ Last administered on 05/22/20at 09:15; Start 05/21/20 at 09:00; Stop 05/22/20 at 21:05; Status DC Doxycycline Hyclate (Vibra-Tab) 100 mg BID PO Last administered on 05/28/20at 08:53; Start 05/21/20 at 15:00; Stop 05/28/20 at 15:02; Status DC Furosemide (Lasix) 20 mg 1X ONCE IVP Last administered on 05/21/20 17:05; Start 05/21/20 at 17:00; Stop 05/21/20 at 17:01; Status DC Sterile Water (WATER for RESP) 1,000 ml CONT PRN INH VIA VAPOTHERM DEVICE Last administered on 05/23/20 16:26; Start 05/21/20 at 17:15 Albuterol Sulfate (Ventolin Neb Soln) 2.5 mg Q4HRS NEB Last administered on 05/29/20at 11:14; Start 05/21/20 at 20:00 Vancomycin HCl (Vanco Per Pharmacy) 1 each PRN DAILY PRN MC SEE COMMENTS Last administered on 05/25/20at 23:52; Start 05/22/20 at 09:00; Stop 05/27/20 at 16:29; Status DC Vancomycin HCl 2 gm/Sodium Chloride 500 ml @ 250 mls/hr 1X ONCE IV Last administered on 05/22/20at 09:05; Start 05/22/20 at 09:00; Stop 05/22/20 at 10:59; Status DC Vancomycin HCl 1.25 gm/Sodium Chloride 250 ml @ 167 mls/hr Q24H IV Last administered on 05/23/20at 09:00; Start 05/23/20 at 09:00; Stop 05/24/20 at 10:05; Status DC Vancomycin HCl (Vancomycin Trough Level) 1 each 1X ONCE MC Last administered on 05/24/20 08:30; Start 05/24/20 at 08:30; Stop 05/24/20 at 08:31; Status DC Methylprednisolone Sodium Succinate (SOLU-Medrol 125MG VIAL) 80 mg Q8HRS IV Last administered on 05/27/20 06:04; Start 05/22/20 at 14:00; Stop 05/27/20 at 12:02; Status DC Insulin Glargine (Lantus Syringe) 10 unit BID SQ Last administered on 05/23/20at 09:11; Start 05/22/20 at 21:00; Stop 05/23/20 at 20:17; Status DC Metoprolol Tartrate (Lopressor) 50 mg BID PO Last administered on 05/29/20 08:12; Start 05/23/20 at 10:30 Hydrochlorothiazide (Microzide) 12.5 mg DAILY PO Last administered on 05/29/20 08:14; Start 05/24/20 at 09:00 Potassium Chloride (Klor-Con) 40 meq Q2H PO Last administered on 05/23/20at 14:58; Start 05/23/20 at 10:30; Stop 05/23/20 at 14:31; Status DC Lisinopril (Prinivil) 40 mg DAILY PO Last administered on 05/29/20 08:13; Start 05/23/20 at 10:30 Hydralazine HCl (Apresoline) 100 mg BID PO Last administered on 05/29/20 08:14; Start 05/23/20 at 10:30 Insulin Glargine (Lantus Syringe) 10 unit BID SQ Last administered on 05/24/20at 09:14; Start 05/23/20 at 21:00; Stop 05/24/20 at 11:28; Status DC Vancomycin HCl 1.25 gm/Sodium Chloride 250 ml @ 167 mls/hr Q12H IV Last administered on 05/27/20 08:21; Start 05/24/20 at 10:30; Stop 05/27/20 at 16:26; Status DC Vancomycin HCl (Vancomycin Trough Level) 1 each 1X ONCE MC Last administered on 05/25/20at 22:00; Start 05/25/20 at 22:00; Stop 05/25/20 at 22:01; Status DC Insulin Glargine (Lantus Syringe) 12 unit BID SQ ; Start 05/24/20 at 21:00; Stop 05/24/20 at 17:27; Status DC Insulin Glargine (Lantus Syringe) 15 unit BID SQ Last administered on 05/25/20at 08:19; Start 05/24/20 at 21:00; Stop 05/25/20 at 09:47; Status DC Insulin Human Lispro (HumaLOG) 7 units 1X ONCE SQ Last administered on 05/24/20at 18:01; Start 05/24/20 at 17:30; Stop 05/24/20 at 17:31; Status DC Piperacillin Sod/ Tazobactam Sod 3.375 gm/Sodium Chloride 50 ml @ 100 mls/hr Q6HRS IV Last administered on 05/28/20at 12:09; Start 05/24/20 at 18:30; Stop 05/28/20 at 15:01; Status DC Insulin Human Lispro (HumaLOG) 11 units 1X SQ ; Start 05/24/20 at 21:30; Status Cancel Insulin Human Lispro (HumaLOG) 11 units 1X ONCE SQ Last administered on 05/24/20at 22:25; Start 05/24/20 at 22:00; Stop 05/24/20 at 22:01; Status DC Furosemide (Lasix) 20 mg 1X ONCE IVP Last administered on 05/25/20at 11:12; Start 05/25/20 at 10:00; Stop 05/25/20 at 10:01; Status DC Insulin Glargine (Lantus Syringe) 18 unit BID SQ Last administered on 05/27/20at 08:33; Start 05/25/20 at 21:00; Stop 05/27/20 at 12:00; Status DC Midazolam HCl (Versed) 2 mg 1X ONCE IV ; Start 05/25/20 at 10:30; Stop 05/25/20 at 10:31; Status Cancel Fentanyl Citrate (Fentanyl 2ml Vial) 50 mcg 1X ONCE IM ; Start 05/25/20 at 10:30; Stop 05/25/20 at 10:31; Status Cancel Hydralazine HCl (Apresoline Inj) 10 mg PRN Q4HRS PRN IVP ELEVATED BP, SEE COMMENTS Last administered on 05/29/20at 11:06; Start 05/25/20 at 16:15 Potassium Chloride (Klor-Con) 40 meq 1X ONCE PO Last administered on 05/26/20at 18:43; Start 05/26/20 at 18:30; Stop 05/26/20 at 18:31; Status DC Insulin Glargine (Lantus Syringe) 22 unit BID SQ Last administered on 05/29/20at 08:24; Start 05/27/20 at 21:00 Methylprednisolone Sodium Succinate (SOLU-Medrol 125MG VIAL) 40 mg Q12HR IV Last administered on 05/28/20at 08:52; Start 05/27/20 at 19:00; Stop 05/28/20 at 13:37; Status DC Nystatin (Nystatin Oral Susp) 5 ml [id number] Last administered on 05/29/20at 08:15; Start 05/27/20 at 17:00 Insulin Human Lispro (HumaLOG) 20 units 1X ONCE SQ Last administered on 05/27/20at 17:32; Start 05/27/20 at 17:30; Stop 05/27/20 at 17:31; Status DC Methylprednisolone Sodium Succinate (SOLU-Medrol 40MG VIAL) 40 mg Q12HR IV Last administered on 05/29/20at 08:16; Start 05/28/20 at 21:00; Stop 06/03/20 at 03:00 Amoxicillin/ Clavulanate Potassium (Augmentin 875/ 125mg) 1 tab BID PO Last administered on 05/29/20at 08:15; Start 05/28/20 at 21:00 Active Scripts Active Reported Actos (Pioglitazone Hcl) 45 Mg Tablet 1 Tab PO DAILY 30 Days Diclofenac Sodium 75 Mg Tablet. 1 Tab PO BID Klor-Con 10 (Potassium Chloride) 10 Meq Tablet.er 1 Tab PO DAILY 30 Days Metformin Hcl 1,000 Mg Tablet 1,000 Mg PO BIDWMEALS Omeprazole 20 Mg Capsule. 1 Cap PO DAILY Lisinopril-Hctz 20-25 Mg Tab (Lisinopril/Hydrochlorothiazide) 1 Each Tablet 1 Tab PO DAILY Aspirin Ec (Aspirin) 81 Mg Tablet. 1 Tab PO DAILY Hydralazine Hcl 100 Mg Tablet 1 Tab PO BID Metoprolol Tartrate 50 Mg Tablet 1 Tab PO BID Rosuvastatin Calcium 10 Mg Tablet 10 Mg PO DAILY Vitals/I & O Vital Sign - Last 24 Hours 05/28/20 05/28/20 05/28/20 05/28/20 15:00 15:25 19:05 19:05 Temp 98.4 97.7 98.4 97.7 Pulse 63 76 Resp 16 24 B/P (MAP) 150/55 (86) 187/75 (112) Pulse Ox 96 96 93 93 O2 Delivery Nasal Cannula Nasal Cannula Nasal Cannula Nasal Cannula O2 Flow Rate 5.0 4.0 3.5 4.0 05/28/20 05/28/20 05/28/20 05/28/20 20:00 21:00 21:02 23:45 Temp 98.2 98.2 Pulse 62 76 78 Resp 24 B/P (MAP) 187/75 187/75 186/80 (115) Pulse Ox 94 O2 Delivery Nasal Cannula Nasal Cannula O2 Flow Rate 4.0 3.5 05/29/20 05/29/20 05/29/20 05/29/20 00:01 00:09 02:45 07:48 Temp 97.9 98.1 97.9 98.1 Pulse 51 61 65 Resp 22 20 B/P (MAP) 186/80 192/76 (114) 183/77 (112) Pulse Ox 88 91 90 O2 Delivery Nasal Cannula Nasal Cannula Nasal Cannula O2 Flow Rate 3.0 3.5 5.0 05/29/20 05/29/20 05/29/20 05/29/20 08:00 08:12 08:13 08:14 Pulse 71 71 71 B/P (MAP) 183/77 183/77 183/77 O2 Delivery Nasal Cannula O2 Flow Rate 4.0 05/29/20 05/29/20 05/29/20 10:55 11:06 11:14 Temp 97.8 97.8 Pulse 59 62 Resp 20 B/P (MAP) 188/76 (113) 188/76 Pulse Ox 91 91 O2 Delivery Nasal Cannula Nasal Cannula O2 Flow Rate 5.0 4.0 Intake and Output 05/28/20 05/28/20 05/29/20 15:00 23:00 07:00 Intake Total 398 ml 100 ml Output Total 975 ml 1150 ml 150 ml Balance -577 ml -1150 ml -50 ml Justicifation of Admission Dx: Justifications for Admission: Justification of Admission Dx: Yes Altered Mental Status: Altered Mental Status SAMUEL BHATIA MD May 29, 2020 11:44
[2020-05-29] MEDS ORDERED: FUROSEMIDE 20 MG TABLET PO ONE (12:30)
[2020-05-29] MEDS ORDERED: POTASSIUM CHLORIDE 20 MEQ TABLET.ER. PO ONE (12:30)
[2020-05-29] MEDS: amLODIPine BESYLATE 5 MG TABLET PO SCH (12:40)
--- NOTE | 2020-05-29 13:02 | RAD ---
PORTABLE CHEST 1V Clinical History: Reason: hypoxia / Spl. Instructions: / History: Technique: AP view of the chest was obtained at 05/29/2020 12:10 PM. Comparison: May 23, 2020. Findings: The heart is normal size. The pulmonary vessels appear somewhat cephalized and congested and there is patchy opacities as well as perihilar linear opacities throughout the lungs. Impression: Moderate bilateral infiltrates could be secondary to atypical pneumonia or CHF. This appears similar to the prior study although there is improved aeration of the left lung base. Electronically signed by: Jonathan Mensah III, MD (05/29/2020 12:59 PM) [id number]
[2020-05-29] MEDS: ENOXAPARIN 40 MG/0.4 ML SYRINGE. SQ SCH (17:25)
[2020-05-29] MEDS: ATORVASTATIN CALCIUM 40 MG TABLET. PO SCH (20:30)
[2020-05-30] VITALS (16 sets, daily range): BP systolic 111–160; BP diastolic 44–82
[2020-05-30] MEDS: ALBUTEROL SULFATE 2.5 MG/3 ML NEBU. NEB SCH ×5 (03:11→20:00)
[2020-05-30 06:28] LABS: PCO2 ABG 47 mmHg (35-46); PO2 ABG 51 mmHg (65-108)
[2020-05-30 06:29] LABS: BASE EXCESS ABG 8 mmol/L (-3-3); FIO2 ABG 50; HCO3 ABG 32 mmol/L (21-28); SAT O2 ABG 84 % (92-99)
--- NOTE | 2020-05-30 07:29 | NUR ---
Pt was put on bipap following ABG that showed a sp02 of 84%. In addition, following the ABG she had an markedly increased work of breathing along with a rate in the mid 30's.
[2020-05-30 07:32] LABS: BASO % 0 % (0-3); EOS % 0 % (0-3); HEMATOCRIT 26.8 % (36.0-47.0); HEMOGLOBIN 8.6 g/dL (12.0-15.5); LYMPH # 0.3 x10^3/uL (1.0-4.8); LYMPH % 2 % (24-48); MEAN CORPUSCULAR HEMOGLOBIN 27 pg (25-35); MEAN CORPUSCULAR HGB CONC 32 g/dL (31-37); MEAN CORPUSCULAR VOLUME 84 fL (79-100); MONO # 0.4 x10^3/uL (0.0-1.1); MONO % 3 % (0-9); NEUT # 14.7 x10^3/uL (1.8-7.7); NEUT % 95 % (31-73); PLATELET COUNT 331 x10^3/uL (140-400); RED BLOOD COUNT 3.21 x10^6/uL (3.50-5.40); RED CELL DISTRIBUTION WIDTH 16.9 % (11.5-14.5); WHITE BLOOD COUNT 15.5 x10^3/uL (4.0-11.0)
[2020-05-30 07:48] LABS: ALBUMIN/GLOBULIN RATIO 0.5 (1.0-1.7); CALCIUM 7.9 mg/dL (8.5-10.1); CREATININE 0.8 mg/dL (0.6-1.0); GFR 71.3; POTASSIUM 4.1 mmol/L (3.5-5.1); TOTAL BILIRUBIN 0.7 mg/dL (0.2-1.0); TOTAL PROTEIN 6.3 g/dL (6.4-8.2)
[2020-05-30] MEDS: INSULIN LISPRO 300 UNITS/3 ML VIAL. SQ SCH ×3 (08:00→17:00)
[2020-05-30] MEDS: methIMAzole 10 MG TABLET PO SCH ×2 (08:31→20:41)
[2020-05-30] MEDS: LACTOBACILLUS RHAMNOSUS GG 1 CAPSULE. PO SCH ×2 (08:31→20:41)
[2020-05-30] MEDS: hydroCHLOROthiazide 12.5 MG CAPSULE PO SCH (08:32)
[2020-05-30] MEDS: METOPROLOL TART IMMED RELEASE 50 MG TABLET. PO SCH ×3 (08:32→20:40)
[2020-05-30] MEDS: DICLOFENAC SODIUM 25 MG TABLET.DR PO SCH ×2 (08:32→20:40)
[2020-05-30] MEDS: AMOXICILLIN/K CLAV 875/125MG TABLET. PO SCH ×2 (08:33→20:39)
[2020-05-30] MEDS: ASPIRIN ENTERIC COATED 81 MG TABLET.DR. PO SCH (08:33)
[2020-05-30] MEDS: amLODIPine BESYLATE 5 MG TABLET PO SCH (08:33)
[2020-05-30] MEDS: methylPREDNISolone SOD SUCC PF 40 MG/ML VIAL. IV SCH (08:34)
[2020-05-30] MEDS: NYSTATIN 100,000 UNITS/ML 5 ML ORAL.SUSP. SWSW SCH ×4 (08:34→20:39)
[2020-05-30] MEDS: LISINOPRIL 20 MG TABLET PO SCH (08:34)
[2020-05-30] MEDS: PANTOPRAZOLE 40 MG TABLET.DR. PO SCH (08:34)
[2020-05-30] MEDS: INSULIN GLARGINE SYRINGE. SQ SCH ×2 (08:48→20:44)
--- NOTE | 2020-05-30 10:49 | PDOC ---
Infectious Disease Note Subjective Subjective Increase SOA after using the commode. Now on BiPAP FiO2 60% c/o work of breathing No cough/F/C/aches ROS ROS as mentioned above Vital Sign Vital Signs Vital Signs Date Time Temp Pulse Resp B/P (MAP) Pulse Ox O2 Delivery O2 Flow Rate FiO2 05/30/20 09:22 95 BiPAP/CPAP 05/30/20 08:34 55 160/73 05/30/20 07:00 98.9 24 98.9 05/30/20 03:12 5.0 Physical Exam PHYSICAL EXAM GENERAL: Propped up in bed, alert, calm HEENT: On BiPAP NECK: Supple. LUNGS: Diminished aeration bases, HEART: S1, S2. regular ABDOMEN: Obese, soft, nontender EXTREMITIES: 1+ edema lower extremities bilaterally. No cyanosis DERMATOLOGIC: Warm, dry. No generalized rash. NEUROLOGIC: Alert, responds appropriately Labs Lab Laboratory Tests Test 05/29/20 11:39 05/29/20 16:33 05/29/20 20:29 05/30/20 05:58 Glucose (Fingerstick) 255 mg/dL (70-99) 263 mg/dL (70-99) 157 mg/dL (70-99) O2 Saturation 84 % (92-99) Arterial Blood pH 7.46 (7.35-7.45) Arterial Blood pCO2 at Patient Temp 47 mmHg (35-46) Arterial Blood pO2 at Patient Temp 51 mmHg (65-108) Arterial Blood HCO3 32 mmol/L (21-28) Arterial Blood Base Excess 8 mmol/L (-3-3) FiO2 50 Test 05/30/20 06:40 05/30/20 07:14 White Blood Count 15.5 x10^3/uL (4.0-11.0) Red Blood Count 3.21 x10^6/uL (3.50-5.40) Hemoglobin 8.6 g/dL (12.0-15.5) Hematocrit 26.8 % (36.0-47.0) Mean Corpuscular Volume 84 fL (79-100) Mean Corpuscular Hemoglobin 27 pg (25-35) Mean Corpuscular Hemoglobin Concent 32 g/dL (31-37) Red Cell Distribution Width 16.9 % (11.5-14.5) Platelet Count 331 x10^3/uL (140-400) Neutrophils (%) (Auto) 95 % (31-73) Lymphocytes (%) (Auto) 2 % (24-48) Monocytes (%) (Auto) 3 % (0-9) Eosinophils (%) (Auto) 0 % (0-3) Basophils (%) (Auto) 0 % (0-3) Neutrophils # (Auto) 14.7 x10^3/uL (1.8-7.7) Lymphocytes # (Auto) 0.3 x10^3/uL (1.0-4.8) Monocytes # (Auto) 0.4 x10^3/uL (0.0-1.1) Eosinophils # (Auto) 0.0 x10^3/uL (0.0-0.7) Basophils # (Auto) 0.0 x10^3/uL (0.0-0.2) Sodium Level 139 mmol/L (136-145) Potassium Level 4.1 mmol/L (3.5-5.1) Chloride Level 100 mmol/L (98-107) Carbon Dioxide Level 34 mmol/L (21-32) Anion Gap 5 (6-14) Blood Urea Nitrogen 19 mg/dL (7-20) Creatinine 0.8 mg/dL (0.6-1.0) Estimated GFR (Cockcroft-Gault) 71.3 BUN/Creatinine Ratio 24 (6-20) Glucose Level 121 mg/dL (70-99) Calcium Level 7.9 mg/dL (8.5-10.1) Total Bilirubin 0.7 mg/dL (0.2-1.0) Aspartate Amino Transf (AST/SGOT) 45 U/L (15-37) Alanine Aminotransferase (ALT/SGPT) 59 U/L (14-59) Alkaline Phosphatase 245 U/L (46-116) Total Protein 6.3 g/dL (6.4-8.2) Albumin 2.0 g/dL (3.4-5.0) Albumin/Globulin Ratio 0.5 (1.0-1.7) Glucose (Fingerstick) 103 mg/dL (70-99) Micro 05/18 BLOOD CULTURE LC Final Final GRAM POSITIVE COCCI FINAL ID= [MICROCOCCUS SPECIES] UNABLE TO GROW FOR SUSCEPTIBILITY TESTING MICRO CHARGES MICROCOCCUS SPECIES 05/24. BLOOD CULTURE Preliminary NO GROWTH AFTER 5 DAYS 05/26. RESPIRATORY CULTURE Preliminary Preliminary MODERATE Mixed upper respiratory gerri on 05/27/20 at 1115 Objective Assessment Acute hypoxic respiratory failure Pneumonia. sputum cx: Resp gerri. Off vanc/Zosyn/doxy. - COVID-19 negative on 05/18/2020 and 05/19/2020. Fever - now resolved Leukocytosis, on steroids. CHF Hypoglycemic encephalopathy, resolved. Diabetes. Hypertension. Severe protein-calorie malnutrition. Gram-positive cocci bacteremia, 05/18/2020, 1 out of 2 bottles, ID MICROCOCCUS SPECIES, likely a contaminant. Thrush Plan Plan of Care cxr Await pulm follow-up Steriods Augmentin till 05/31 off vanc, Zosyn and doxycycline Nystatin SWSW, 05/27 BC neg Maintain aspiration precautions Supportive care D/w family at bedside D/w nursing Patient discussed in detail with SERGEANT OF CORRECTIONS. Chart reviewed in detail. Above plan co- formulated and agreed upon with SERGEANT OF CORRECTIONS on 05/29/2020 CESAR DENIS APRN May 30, 2020 10:49 JOANNE ROMERO MD May 30, 2020 19:39
--- NOTE | 2020-05-30 11:10 | PDOC ---
PULMONARY PROGRESS NOTES Subjective Patient experienced hypoxia/dyspnea early this morning after getting up to the commode continued to have profound hypoxia despite nonrebreather and was placed on BiPAP at 60% Patient reports increased shortness of breath denies increased cough Family at bedside Vitals Vital Signs Date Time Temp Pulse Resp B/P (MAP) Pulse Ox O2 Delivery O2 Flow Rate FiO2 05/30/20 09:22 95 BiPAP/CPAP 05/30/20 09:00 55 160/73 05/30/20 07:00 98.9 24 98.9 05/30/20 03:12 5.0 Comments Slovak-speaking only ROS: No Nausea, No Chest Pain, No Abdominal Pain General: Alert, Oriented X4 Lungs: Clear Cardiovascular: S1, S2 Abdomen: Soft Neuro Exam: Alert Extremities: Other (+2 BLE ) Skin: Warm Labs Laboratory Tests Test 05/28/20 11:37 05/28/20 17:02 05/28/20 20:35 05/29/20 07:04 Glucose (Fingerstick) 204 mg/dL (70-99) 230 mg/dL (70-99) 235 mg/dL (70-99) 146 mg/dL (70-99) Test 05/29/20 11:39 05/29/20 16:33 05/29/20 20:29 05/30/20 05:58 Glucose (Fingerstick) 255 mg/dL (70-99) 263 mg/dL (70-99) 157 mg/dL (70-99) O2 Saturation 84 % (92-99) Arterial Blood pH 7.46 (7.35-7.45) Arterial Blood pCO2 at Patient Temp 47 mmHg (35-46) Arterial Blood pO2 at Patient Temp 51 mmHg (65-108) Arterial Blood HCO3 32 mmol/L (21-28) Arterial Blood Base Excess 8 mmol/L (-3-3) FiO2 50 Test 05/30/20 06:40 05/30/20 07:14 White Blood Count 15.5 x10^3/uL (4.0-11.0) Red Blood Count 3.21 x10^6/uL (3.50-5.40) Hemoglobin 8.6 g/dL (12.0-15.5) Hematocrit 26.8 % (36.0-47.0) Mean Corpuscular Volume 84 fL (79-100) Mean Corpuscular Hemoglobin 27 pg (25-35) Mean Corpuscular Hemoglobin Concent 32 g/dL (31-37) Red Cell Distribution Width 16.9 % (11.5-14.5) Platelet Count 331 x10^3/uL (140-400) Neutrophils (%) (Auto) 95 % (31-73) Lymphocytes (%) (Auto) 2 % (24-48) Monocytes (%) (Auto) 3 % (0-9) Eosinophils (%) (Auto) 0 % (0-3) Basophils (%) (Auto) 0 % (0-3) Neutrophils # (Auto) 14.7 x10^3/uL (1.8-7.7) Lymphocytes # (Auto) 0.3 x10^3/uL (1.0-4.8) Monocytes # (Auto) 0.4 x10^3/uL (0.0-1.1) Eosinophils # (Auto) 0.0 x10^3/uL (0.0-0.7) Basophils # (Auto) 0.0 x10^3/uL (0.0-0.2) Sodium Level 139 mmol/L (136-145) Potassium Level 4.1 mmol/L (3.5-5.1) Chloride Level 100 mmol/L (98-107) Carbon Dioxide Level 34 mmol/L (21-32) Anion Gap 5 (6-14) Blood Urea Nitrogen 19 mg/dL (7-20) Creatinine 0.8 mg/dL (0.6-1.0) Estimated GFR (Cockcroft-Gault) 71.3 BUN/Creatinine Ratio 24 (6-20) Glucose Level 121 mg/dL (70-99) Calcium Level 7.9 mg/dL (8.5-10.1) Total Bilirubin 0.7 mg/dL (0.2-1.0) Aspartate Amino Transf (AST/SGOT) 45 U/L (15-37) Alanine Aminotransferase (ALT/SGPT) 59 U/L (14-59) Alkaline Phosphatase 245 U/L (46-116) Total Protein 6.3 g/dL (6.4-8.2) Albumin 2.0 g/dL (3.4-5.0) Albumin/Globulin Ratio 0.5 (1.0-1.7) Glucose (Fingerstick) 103 mg/dL (70-99) Laboratory Tests Test 05/29/20 11:39 05/29/20 16:33 05/29/20 20:29 05/30/20 05:58 Glucose (Fingerstick) 255 mg/dL (70-99) 263 mg/dL (70-99) 157 mg/dL (70-99) O2 Saturation 84 % (92-99) Arterial Blood pH 7.46 (7.35-7.45) Arterial Blood pCO2 at Patient Temp 47 mmHg (35-46) Arterial Blood pO2 at Patient Temp 51 mmHg (65-108) Arterial Blood HCO3 32 mmol/L (21-28) Arterial Blood Base Excess 8 mmol/L (-3-3) FiO2 50 Test 05/30/20 06:40 05/30/20 07:14 White Blood Count 15.5 x10^3/uL (4.0-11.0) Red Blood Count 3.21 x10^6/uL (3.50-5.40) Hemoglobin 8.6 g/dL (12.0-15.5) Hematocrit 26.8 % (36.0-47.0) Mean Corpuscular Volume 84 fL (79-100) Mean Corpuscular Hemoglobin 27 pg (25-35) Mean Corpuscular Hemoglobin Concent 32 g/dL (31-37) Red Cell Distribution Width 16.9 % (11.5-14.5) Platelet Count 331 x10^3/uL (140-400) Neutrophils (%) (Auto) 95 % (31-73) Lymphocytes (%) (Auto) 2 % (24-48) Monocytes (%) (Auto) 3 % (0-9) Eosinophils (%) (Auto) 0 % (0-3) Basophils (%) (Auto) 0 % (0-3) Neutrophils # (Auto) 14.7 x10^3/uL (1.8-7.7) Lymphocytes # (Auto) 0.3 x10^3/uL (1.0-4.8) Monocytes # (Auto) 0.4 x10^3/uL (0.0-1.1) Eosinophils # (Auto) 0.0 x10^3/uL (0.0-0.7) Basophils # (Auto) 0.0 x10^3/uL (0.0-0.2) Sodium Level 139 mmol/L (136-145) Potassium Level 4.1 mmol/L (3.5-5.1) Chloride Level 100 mmol/L (98-107) Carbon Dioxide Level 34 mmol/L (21-32) Anion Gap 5 (6-14) Blood Urea Nitrogen 19 mg/dL (7-20) Creatinine 0.8 mg/dL (0.6-1.0) Estimated GFR (Cockcroft-Gault) 71.3 BUN/Creatinine Ratio 24 (6-20) Glucose Level 121 mg/dL (70-99) Calcium Level 7.9 mg/dL (8.5-10.1) Total Bilirubin 0.7 mg/dL (0.2-1.0) Aspartate Amino Transf (AST/SGOT) 45 U/L (15-37) Alanine Aminotransferase (ALT/SGPT) 59 U/L (14-59) Alkaline Phosphatase 245 U/L (46-116) Total Protein 6.3 g/dL (6.4-8.2) Albumin 2.0 g/dL (3.4-5.0) Albumin/Globulin Ratio 0.5 (1.0-1.7) Glucose (Fingerstick) 103 mg/dL (70-99) Medications Active Scripts Medications Dose Route/Sig Max Daily Dose Days Date Category Actos (Pioglitazone Hcl) 45 Mg Tablet 1 Tab PO DAILY 30 05/18/20 Reported Diclofenac Sodium 75 Mg Tablet.dr 1 Tab PO BID 05/18/20 Reported Klor-Con 10 (Potassium Chloride) 10 Meq Tablet.er 1 Tab PO DAILY 30 05/18/20 Reported Metformin Hcl 1,000 Mg Tablet 1,000 Mg PO BIDWMEALS 05/18/20 Reported Omeprazole 20 Mg Capsule.dr 1 Cap PO DAILY 05/18/20 Reported Lisinopril-Hctz 20-25 Mg Tab (Lisinopril/Hydrochlorothiazide) 1 Each Tablet 1 Tab PO DAILY 05/18/20 Reported Aspirin Ec (Aspirin) 81 Mg Tablet.dr 1 Tab PO DAILY 05/18/20 Reported Hydralazine Hcl 100 Mg Tablet 1 Tab PO BID 05/18/20 Reported Metoprolol Tartrate 50 Mg Tablet 1 Tab PO BID 05/18/20 Reported Rosuvastatin Calcium 10 Mg Tablet 10 Mg PO DAILY 05/18/20 Reported Comments CXR : Impression: Moderate bilateral infiltrates could be secondary to atypical pneumonia or CHF. This appears similar to the prior study although there is improved aeration of the left lung base. Impression . IMPRESSION: 1. Acute hypoxic respiratory failure--worsening now on BIPAP 2. Abnormal chest x-ray/ARDS 3. Fever, resolved 4. Hypoglycemic encephalopathy, resolved. 5. Severe protein-calorie malnutrition. 6. Mild azotemia. 7. SARS-CoV-2 negative x2 8. Negative blood cultures 9. Possible Boop 10. Negative CT angiogram for PE Impression: 1. No evidence of pulmonary embolism. 2. Mild left effusion and moderate bilateral infiltrates right worse than left. This could be ARDS or pulmonary edema or atypical pneumonia. Plan . 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 lackey, and infectious disease service, CT reviewed Increase steroid, I do not think she needs additional antibiotics Continue BiPAP at current settings 60%, obtain chest x-ray and ABG Diuresis cont.steroids ABX per ID SARS-CoV-2 negative x2 DM per IM HTN per IM PT/OT D/W RN and RT KING WHITTINGTON MD May 30, 2020 11:10
[2020-05-30] MEDS ORDERED: FUROSEMIDE 40 MG/4 ML VIAL. IVP ONE (11:15)
--- NOTE | 2020-05-30 11:23 | RAD ---
Examination: CHEST AP ONLY History: Reason: hypoxia / Spl. Instructions: / History: Comparison: 05/29/2020 Portable Chest X-ray Exam. Findings: AP portable upright frontal view of the chest was obtained. Heart size is borderline. Pulmonary vasculature is mildly congested. Diffuse interstitial edema and/or infiltrates are noted. No pneumothorax. No significant pleural effusions. Bony structures unremarkable. IMPRESSION: No significant change in pulmonary aeration. Electronically signed by: Jagdeep Hager MD (05/30/2020 11:20 AM) [id number]
[2020-05-30 11:46] LABS: BASE EXCESS ABG 10 mmol/L (-3-3); HCO3 ABG 34 mmol/L (21-28); PCO2 ABG 43 mmHg (35-46); PO2 ABG 55 mmHg (65-108); SAT O2 ABG 89 % (92-99)
[2020-05-30 11:47] LABS: FIO2 ABG 60
[2020-05-30] MEDS ORDERED: IOHEXOL 350 MG/ML 100 ML VIAL. IV ONE (12:00)
[2020-05-30] MEDS ORDERED: CONTRAST GIVEN. MC PRN (12:15)
--- NOTE | 2020-05-30 13:01 | RAD ---
CTA Chest with contrast: Clinical History: Reason: hypoxia / Spl. Instructions. Axial helical images of the chest were obtained after the administration of 100 cc of IV Omni 350 and timed appropriately for a pulmonary arterial study. Conventional axial reconstruction was performed in addition to coronal, sagittal and bilateral oblique MIP (maximum intensity projection). This study was ordered to detect possible pulmonary embolism. There are no filling defects to suggest pulmonary embolism. The more peripheral subsegmental pulmonary arteries are not well opacified limiting our sensitivity for small peripheral pulmonary emboli. 2 there is a small left effusion. There is moderate patchy and groundglass opacities throughout the lungs bilaterally right worse than left. There is no mediastinal or hilar lymphadenopathy. The thoracic aorta appears normal. Impression: 1. No evidence of pulmonary embolism. 2. Mild left effusion and moderate bilateral infiltrates right worse than left. This could be ARDS or pulmonary edema or atypical pneumonia. PQRS Compliance Statement: One or more of the following individualized dose reduction techniques were utilized for this examination: 1. Automated exposure control 2. Adjustment of the mA and/or kV according to patient size 3. Use of iterative reconstruction technique Electronically signed by: Jonathan Mensah III, MD (05/30/2020 12:58 PM) [id number]
--- NOTE | 2020-05-30 14:00 | NUR ---
[facility] transfer but switched to Vapotherm 40L/100%. Galan catheter placed and 1300ml immediately returned. Pt resting comfortably in bed. Nystatin non administered due to pt being on bipap upon transfer.
[2020-05-30] MEDS: STERILE WATER for RESP 1,000 ML BAG. INH PRN ×2 (14:45→22:34)
--- NOTE | 2020-05-30 16:26 | PDOC ---
PROGRESS NOTES Chief Complaint Chief Complaint Acute hypoxic respiratory failure secondary to multifocal infiltrate/pleural effusions sepsis Hyperthyroidism likely Graves Dz Hypoglycemic encephalopathy, IMPROVING Severe protein-calorie malnutrition. DM2, HTN urinary retention, pain, History of Present Illness History of Present Illness 05/30 transfer to ICU for hypoxia, consider ARDS, BOOP pulm following urinary retention, maldonado placed, had been striaight cath, then unable, 1300 + fluid out from maldonado 05/29, 6 min wlk, 4 liters at rest, 10 with exertion, on 5 liters now BP too high, PRN hydralazine given, will add norvasc to mult-agent BP 05/28 urinary retention, required straight cath today, cont current IV abx, PULm and ID following 05/27, decreased the steroid dose, breathign easier, may be able to transition to PO soon cont IV abx, ID following, doing well no event increase lantus for high blood sugar, decreasing the steroid will also help Vitals Vitals Vital Signs Date Time Temp Pulse Resp B/P (MAP) Pulse Ox O2 Delivery O2 Flow Rate FiO2 05/30/20 15:53 40.0 05/30/20 15:07 98 VAPOTHERM 05/30/20 14:30 54 24 141/77 (98) 05/30/20 13:00 98.6 98.6 Physical Exam Physical Exam GENERAL: Propped up in bed, alert, calm HEENT: On BiPAP NECK: Supple. LUNGS: Diminished aeration bases, HEART: S1, S2. regular ABDOMEN: Obese, soft, nontender EXTREMITIES: 1+ edema lower extremities bilaterally. No cyanosis DERMATOLOGIC: Warm, dry. No generalized rash. NEUROLOGIC: Alert, responds appropriately General: Alert, Cooperative, No acute distress Heart: Regular rate, Normal S1, Normal S2, No murmurs Lungs: Clear Abdomen: Normal bowel sounds, Soft, No tenderness, No hepatosplenomegaly Labs LABS Laboratory Tests Test 05/29/20 16:33 05/29/20 20:29 05/30/20 05:58 05/30/20 06:40 Glucose (Fingerstick) 263 mg/dL (70-99) 157 mg/dL (70-99) O2 Saturation 84 % (92-99) Arterial Blood pH 7.46 (7.35-7.45) Arterial Blood pCO2 at Patient Temp 47 mmHg (35-46) Arterial Blood pO2 at Patient Temp 51 mmHg (65-108) Arterial Blood HCO3 32 mmol/L (21-28) Arterial Blood Base Excess 8 mmol/L (-3-3) FiO2 50 White Blood Count 15.5 x10^3/uL (4.0-11.0) Red Blood Count 3.21 x10^6/uL (3.50-5.40) Hemoglobin 8.6 g/dL (12.0-15.5) Hematocrit 26.8 % (36.0-47.0) Mean Corpuscular Volume 84 fL (79-100) Mean Corpuscular Hemoglobin 27 pg (25-35) Mean Corpuscular Hemoglobin Concent 32 g/dL (31-37) Red Cell Distribution Width 16.9 % (11.5-14.5) Platelet Count 331 x10^3/uL (140-400) Neutrophils (%) (Auto) 95 % (31-73) Lymphocytes (%) (Auto) 2 % (24-48) Monocytes (%) (Auto) 3 % (0-9) Eosinophils (%) (Auto) 0 % (0-3) Basophils (%) (Auto) 0 % (0-3) Neutrophils # (Auto) 14.7 x10^3/uL (1.8-7.7) Lymphocytes # (Auto) 0.3 x10^3/uL (1.0-4.8) Monocytes # (Auto) 0.4 x10^3/uL (0.0-1.1) Eosinophils # (Auto) 0.0 x10^3/uL (0.0-0.7) Basophils # (Auto) 0.0 x10^3/uL (0.0-0.2) D-Dimer (Shu) 1.77 ug/mlFEU (0.00-0.50) Sodium Level 139 mmol/L (136-145) Potassium Level 4.1 mmol/L (3.5-5.1) Chloride Level 100 mmol/L (98-107) Carbon Dioxide Level 34 mmol/L (21-32) Anion Gap 5 (6-14) Blood Urea Nitrogen 19 mg/dL (7-20) Creatinine 0.8 mg/dL (0.6-1.0) Estimated GFR (Cockcroft-Gault) 71.3 BUN/Creatinine Ratio 24 (6-20) Glucose Level 121 mg/dL (70-99) Calcium Level 7.9 mg/dL (8.5-10.1) Total Bilirubin 0.7 mg/dL (0.2-1.0) Aspartate Amino Transf (AST/SGOT) 45 U/L (15-37) Alanine Aminotransferase (ALT/SGPT) 59 U/L (14-59) Alkaline Phosphatase 245 U/L (46-116) Total Protein 6.3 g/dL (6.4-8.2) Albumin 2.0 g/dL (3.4-5.0) Albumin/Globulin Ratio 0.5 (1.0-1.7) Test 05/30/20 07:14 05/30/20 11:41 05/30/20 12:19 Glucose (Fingerstick) 103 mg/dL (70-99) 72 mg/dL (70-99) O2 Saturation 89 % (92-99) Arterial Blood pH 7.52 (7.35-7.45) Arterial Blood pCO2 at Patient Temp 43 mmHg (35-46) Arterial Blood pO2 at Patient Temp 55 mmHg (65-108) Arterial Blood HCO3 34 mmol/L (21-28) Arterial Blood Base Excess 10 mmol/L (-3-3) FiO2 60 Assessment and Plan Assessmemt and Plan Problems Medical Problems: (1) Altered mental status Status: Acute (2) Hypoglycemia Status: Acute (3) Hypothermia Status: Acute Comment Review of Relevant I have reviewed the following items kavya (where applicable) has been applied. Labs Laboratory Tests Test 05/28/20 17:02 05/28/20 20:35 05/29/20 07:04 05/29/20 11:39 Glucose (Fingerstick) 230 mg/dL (70-99) 235 mg/dL (70-99) 146 mg/dL (70-99) 255 mg/dL (70-99) Test 05/29/20 16:33 05/29/20 20:29 05/30/20 05:58 05/30/20 06:40 Glucose (Fingerstick) 263 mg/dL (70-99) 157 mg/dL (70-99) O2 Saturation 84 % (92-99) Arterial Blood pH 7.46 (7.35-7.45) Arterial Blood pCO2 at Patient Temp 47 mmHg (35-46) Arterial Blood pO2 at Patient Temp 51 mmHg (65-108) Arterial Blood HCO3 32 mmol/L (21-28) Arterial Blood Base Excess 8 mmol/L (-3-3) FiO2 50 White Blood Count 15.5 x10^3/uL (4.0-11.0) Red Blood Count 3.21 x10^6/uL (3.50-5.40) Hemoglobin 8.6 g/dL (12.0-15.5) Hematocrit 26.8 % (36.0-47.0) Mean Corpuscular Volume 84 fL (79-100) Mean Corpuscular Hemoglobin 27 pg (25-35) Mean Corpuscular Hemoglobin Concent 32 g/dL (31-37) Red Cell Distribution Width 16.9 % (11.5-14.5) Platelet Count 331 x10^3/uL (140-400) Neutrophils (%) (Auto) 95 % (31-73) Lymphocytes (%) (Auto) 2 % (24-48) Monocytes (%) (Auto) 3 % (0-9) Eosinophils (%) (Auto) 0 % (0-3) Basophils (%) (Auto) 0 % (0-3) Neutrophils # (Auto) 14.7 x10^3/uL (1.8-7.7) Lymphocytes # (Auto) 0.3 x10^3/uL (1.0-4.8) Monocytes # (Auto) 0.4 x10^3/uL (0.0-1.1) Eosinophils # (Auto) 0.0 x10^3/uL (0.0-0.7) Basophils # (Auto) 0.0 x10^3/uL (0.0-0.2) D-Dimer (Shu) 1.77 ug/mlFEU (0.00-0.50) Sodium Level 139 mmol/L (136-145) Potassium Level 4.1 mmol/L (3.5-5.1) Chloride Level 100 mmol/L (98-107) Carbon Dioxide Level 34 mmol/L (21-32) Anion Gap 5 (6-14) Blood Urea Nitrogen 19 mg/dL (7-20) Creatinine 0.8 mg/dL (0.6-1.0) Estimated GFR (Cockcroft-Gault) 71.3 BUN/Creatinine Ratio 24 (6-20) Glucose Level 121 mg/dL (70-99) Calcium Level 7.9 mg/dL (8.5-10.1) Total Bilirubin 0.7 mg/dL (0.2-1.0) Aspartate Amino Transf (AST/SGOT) 45 U/L (15-37) Alanine Aminotransferase (ALT/SGPT) 59 U/L (14-59) Alkaline Phosphatase 245 U/L (46-116) Total Protein 6.3 g/dL (6.4-8.2) Albumin 2.0 g/dL (3.4-5.0) Albumin/Globulin Ratio 0.5 (1.0-1.7) Test 05/30/20 07:14 05/30/20 11:41 05/30/20 12:19 Glucose (Fingerstick) 103 mg/dL (70-99) 72 mg/dL (70-99) O2 Saturation 89 % (92-99) Arterial Blood pH 7.52 (7.35-7.45) Arterial Blood pCO2 at Patient Temp 43 mmHg (35-46) Arterial Blood pO2 at Patient Temp 55 mmHg (65-108) Arterial Blood HCO3 34 mmol/L (21-28) Arterial Blood Base Excess 10 mmol/L (-3-3) FiO2 60 Laboratory Tests Test 05/29/20 16:33 05/29/20 20:29 05/30/20 05:58 05/30/20 06:40 Glucose (Fingerstick) 263 mg/dL (70-99) 157 mg/dL (70-99) O2 Saturation 84 % (92-99) Arterial Blood pH 7.46 (7.35-7.45) Arterial Blood pCO2 at Patient Temp 47 mmHg (35-46) Arterial Blood pO2 at Patient Temp 51 mmHg (65-108) Arterial Blood HCO3 32 mmol/L (21-28) Arterial Blood Base Excess 8 mmol/L (-3-3) FiO2 50 White Blood Count 15.5 x10^3/uL (4.0-11.0) Red Blood Count 3.21 x10^6/uL (3.50-5.40) Hemoglobin 8.6 g/dL (12.0-15.5) Hematocrit 26.8 % (36.0-47.0) Mean Corpuscular Volume 84 fL (79-100) Mean Corpuscular Hemoglobin 27 pg (25-35) Mean Corpuscular Hemoglobin Concent 32 g/dL (31-37) Red Cell Distribution Width 16.9 % (11.5-14.5) Platelet Count 331 x10^3/uL (140-400) Neutrophils (%) (Auto) 95 % (31-73) Lymphocytes (%) (Auto) 2 % (24-48) Monocytes (%) (Auto) 3 % (0-9) Eosinophils (%) (Auto) 0 % (0-3) Basophils (%) (Auto) 0 % (0-3) Neutrophils # (Auto) 14.7 x10^3/uL (1.8-7.7) Lymphocytes # (Auto) 0.3 x10^3/uL (1.0-4.8) Monocytes # (Auto) 0.4 x10^3/uL (0.0-1.1) Eosinophils # (Auto) 0.0 x10^3/uL (0.0-0.7) Basophils # (Auto) 0.0 x10^3/uL (0.0-0.2) D-Dimer (Shu) 1.77 ug/mlFEU (0.00-0.50) Sodium Level 139 mmol/L (136-145) Potassium Level 4.1 mmol/L (3.5-5.1) Chloride Level 100 mmol/L (98-107) Carbon Dioxide Level 34 mmol/L (21-32) Anion Gap 5 (6-14) Blood Urea Nitrogen 19 mg/dL (7-20) Creatinine 0.8 mg/dL (0.6-1.0) Estimated GFR (Cockcroft-Gault) 71.3 BUN/Creatinine Ratio 24 (6-20) Glucose Level 121 mg/dL (70-99) Calcium Level 7.9 mg/dL (8.5-10.1) Total Bilirubin 0.7 mg/dL (0.2-1.0) Aspartate Amino Transf (AST/SGOT) 45 U/L (15-37) Alanine Aminotransferase (ALT/SGPT) 59 U/L (14-59) Alkaline Phosphatase 245 U/L (46-116) Total Protein 6.3 g/dL (6.4-8.2) Albumin 2.0 g/dL (3.4-5.0) Albumin/Globulin Ratio 0.5 (1.0-1.7) Test 05/30/20 07:14 05/30/20 11:41 05/30/20 12:19 Glucose (Fingerstick) 103 mg/dL (70-99) 72 mg/dL (70-99) O2 Saturation 89 % (92-99) Arterial Blood pH 7.52 (7.35-7.45) Arterial Blood pCO2 at Patient Temp 43 mmHg (35-46) Arterial Blood pO2 at Patient Temp 55 mmHg (65-108) Arterial Blood HCO3 34 mmol/L (21-28) Arterial Blood Base Excess 10 mmol/L (-3-3) FiO2 60 Microbiology 05/26/20 Gram Stain Evaluation - Final, Complete 05/26/20 Respiratory Culture - Final, Complete 05/24/20 Blood Culture - Final, Complete NO GROWTH AFTER 5 DAYS 05/18/20 Urine Culture - Final, Complete Medications Current Medications Sodium Chloride 1,000 ml @ 1,000 mls/hr 1X ONCE IV Last administered on 05/18/20at 09:29; Start 05/18/20 at 09:15; Stop 05/18/20 at 10:14; Status DC Ceftriaxone Sodium (Rocephin) 1 gm 1X ONCE IVP Last administered on 05/18/20at 09:28; Start 05/18/20 at 09:15; Stop 05/18/20 at 09:16; Status DC Ondansetron HCl (Zofran) 4 mg PRN Q8HRS PRN IV NAUSEA/VOMITING; Start 05/18/20 at 10:15; Stop 05/18/20 at 16:24; Status DC Acetaminophen (Tylenol) 650 mg PRN Q4HRS PRN PO FEVER > 100.3'F; Start 05/18/20 at 10:15; Stop 05/18/20 at 16:24; Status DC Ceftriaxone Sodium (Rocephin) 1 gm Q24H IVP Last administered on 05/24/20at 09:09; Start 05/19/20 at 09:00; Stop 05/24/20 at 18:10; Status DC Sodium Chloride (Normal Saline Flush) 3 ml QSHIFT PRN IV AFTER MEDS AND BLOOD DRAWS; Start 05/18/20 at 16:30 Sodium Chloride 1,000 ml @ 85 mls/hr [id number] IV Last administered on 05/24/20at 18:31; Start 05/18/20 at 16:20; Stop 05/25/20 at 09:44; Status DC Ondansetron HCl (Zofran) 4 mg PRN Q4HRS PRN IV NAUSEA/VOMITING; Start 05/18/20 at 16:30 Acetaminophen (Tylenol) 650 mg PRN Q4HRS PRN PO TEMP OVER 100.4F OR MILD PAIN Last administered on 05/21/20at 21:10; Start 05/18/20 at 16:30 Acetaminophen (Tylenol Supp) 650 mg PRN Q4HRS PRN [place] TEMP OVER 100.4F OR MILD PAIN; Start 05/18/20 at 16:30 Sodium Monofluorophosphate (Fleet Adult) 133 ml PRN DAILY PRN [place] CONSTIPATION; Start 05/18/20 at 16:30 Docusate Sodium (Colace) 100 mg PRN BID PRN PO HARD STOOLS; Start 05/18/20 at 16:30 Albuterol Sulfate (Ventolin Neb Soln) 2.5 mg PRN Q4HRS PRN NEB SHORTNESS OF BREATH Last administered on 05/21/20at 18:14; Start 05/18/20 at 16:30 Guaifenesin (Robitussin) 200 mg PRN Q4HRS PRN PO COUGH Last administered on 05/23/20at 20:00; Start 05/18/20 at 16:30 Enoxaparin Sodium (Lovenox 40mg Syringe) 40 mg Q24H SQ Last administered on 05/29/20at 17:25; Start 05/18/20 at 17:00 Aspirin (Ecotrin) 81 mg DAILY PO Last administered on 05/30/20 08:33; Start 05/19/20 at 09:00 Metoprolol Tartrate (Lopressor) 50 mg BID PO Last administered on 05/21/20at 09:16; Start 05/19/20 at 09:00; Stop 05/21/20 at 15:45; Status DC Diclofenac Sodium (Voltaren) 75 mg BID PO Last administered on 05/30/20at 08:32; Start 05/19/20 at 10:00 Hydralazine HCl (Apresoline) 100 mg BID PO Last administered on 05/21/20 09:15; Start 05/19/20 at 09:00; Stop 05/21/20 at 15:45; Status DC Lisinopril (Prinivil) 20 mg DAILY PO Last administered on 05/21/20 09:16; Start 05/19/20 at 10:00; Stop 05/21/20 at 15:45; Status DC Pantoprazole Sodium (Protonix) 40 mg DAILYAC PO Last administered on 05/30/20 08:34; Start 05/19/20 at 10:00 Atorvastatin Calcium (Lipitor) 40 mg QHS PO Last administered on 05/29/20 20:30; Start 05/19/20 at 21:00 Hydrochlorothiazide (Hydrodiuril) 25 mg DAILY PO Last administered on 05/23/20 08:59; Start 05/19/20 at 10:00; Stop 05/23/20 at 10:22; Status DC Lactobacillus Rhamnosus (Culturelle) 1 cap BID PO Last administered on 05/30/20 08:31; Start 05/19/20 at 21:00 Insulin Human Lispro (HumaLOG) 0-7 UNITS TIDWMEALS SQ Last administered on 05/29/20 17:29; Start 05/19/20 at 17:00 Dextrose (Dextrose 50%-Water Syringe) 12.5 gm PRN Q15MIN PRN IV SEE COMMENTS; Start 05/19/20 at 14:15 Methimazole (Tapazole) 5 mg BID PO Last administered on 05/30/20 08:31; Start 05/20/20 at 10:00 Insulin Glargine (Lantus Syringe) 5 unit DAILY SQ Last administered on 05/22/20at 09:15; Start 05/21/20 at 09:00; Stop 05/22/20 at 21:05; Status DC Doxycycline Hyclate (Vibra-Tab) 100 mg BID PO Last administered on 05/28/20 08:53; Start 05/21/20 at 15:00; Stop 05/28/20 at 15:02; Status DC Furosemide (Lasix) 20 mg 1X ONCE IVP Last administered on 05/21/20at 17:05; Start 05/21/20 at 17:00; Stop 05/21/20 at 17:01; Status DC Sterile Water (WATER for RESP) 1,000 ml CONT PRN INH VIA VAPOTHERM DEVICE Last administered on 05/23/20 16:26; Start 05/21/20 at 17:15; Stop 05/30/20 at 12:58; Status DC Albuterol Sulfate (Ventolin Neb Soln) 2.5 mg Q4HRS NEB Last administered on 05/30/20at 15:45; Start 05/21/20 at 20:00 Vancomycin HCl (Vanco Per Pharmacy) 1 each PRN DAILY PRN MC SEE COMMENTS Last administered on 05/25/20at 23:52; Start 05/22/20 at 09:00; Stop 05/27/20 at 16:29; Status DC Vancomycin HCl 2 gm/Sodium Chloride 500 ml @ 250 mls/hr 1X ONCE IV Last administered on 05/22/20at 09:05; Start 05/22/20 at 09:00; Stop 05/22/20 at 10:59; Status DC Vancomycin HCl 1.25 gm/Sodium Chloride 250 ml @ 167 mls/hr Q24H IV Last administered on 05/23/20at 09:00; Start 05/23/20 at 09:00; Stop 05/24/20 at 10:05; Status DC Vancomycin HCl (Vancomycin Trough Level) 1 each 1X ONCE MC Last administered on 05/24/20at 08:30; Start 05/24/20 at 08:30; Stop 05/24/20 at 08:31; Status DC Methylprednisolone Sodium Succinate (SOLU-Medrol 125MG VIAL) 80 mg Q8HRS IV Last administered on 05/27/20at 06:04; Start 05/22/20 at 14:00; Stop 05/27/20 at 12:02; Status DC Insulin Glargine (Lantus Syringe) 10 unit BID SQ Last administered on 05/23/20at 09:11; Start 05/22/20 at 21:00; Stop 05/23/20 at 20:17; Status DC Metoprolol Tartrate (Lopressor) 50 mg BID PO Last administered on 05/29/20at 20:30; Start 05/23/20 at 10:30 Hydrochlorothiazide (Microzide) 12.5 mg DAILY PO Last administered on 05/30/20at 08:32; Start 05/24/20 at 09:00 Potassium Chloride (Klor-Con) 40 meq Q2H PO Last administered on 05/23/20at 14:58; Start 05/23/20 at 10:30; Stop 05/23/20 at 14:31; Status DC Lisinopril (Prinivil) 40 mg DAILY PO Last administered on 05/30/20at 08:34; Start 05/23/20 at 10:30 Hydralazine HCl (Apresoline) 100 mg BID PO Last administered on 05/30/20at 08:33; Start 05/23/20 at 10:30 Insulin Glargine (Lantus Syringe) 10 unit BID SQ Last administered on 05/24/20at 09:14; Start 05/23/20 at 21:00; Stop 05/24/20 at 11:28; Status DC Vancomycin HCl 1.25 gm/Sodium Chloride 250 ml @ 167 mls/hr Q12H IV Last administered on 05/27/20at 08:21; Start 05/24/20 at 10:30; Stop 05/27/20 at 16:26; Status DC Vancomycin HCl (Vancomycin Trough Level) 1 each 1X ONCE MC Last administered on 05/25/20at 22:00; Start 05/25/20 at 22:00; Stop 05/25/20 at 22:01; Status DC Insulin Glargine (Lantus Syringe) 12 unit BID SQ ; Start 05/24/20 at 21:00; Stop 05/24/20 at 17:27; Status DC Insulin Glargine (Lantus Syringe) 15 unit BID SQ Last administered on 05/25/20at 08:19; Start 05/24/20 at 21:00; Stop 05/25/20 at 09:47; Status DC Insulin Human Lispro (HumaLOG) 7 units 1X ONCE SQ Last administered on 05/24/20at 18:01; Start 05/24/20 at 17:30; Stop 05/24/20 at 17:31; Status DC Piperacillin Sod/ Tazobactam Sod 3.375 gm/Sodium Chloride 50 ml @ 100 mls/hr Q6HRS IV Last administered on 05/28/20at 12:09; Start 05/24/20 at 18:30; Stop 05/28/20 at 15:01; Status DC Insulin Human Lispro (HumaLOG) 11 units 1X SQ ; Start 05/24/20 at 21:30; Status Cancel Insulin Human Lispro (HumaLOG) 11 units 1X ONCE SQ Last administered on 05/24/20at 22:25; Start 05/24/20 at 22:00; Stop 05/24/20 at 22:01; Status DC Furosemide (Lasix) 20 mg 1X ONCE IVP Last administered on 05/25/20at 11:12; Start 05/25/20 at 10:00; Stop 05/25/20 at 10:01; Status DC Insulin Glargine (Lantus Syringe) 18 unit BID SQ Last administered on 05/27/20at 08:33; Start 05/25/20 at 21:00; Stop 05/27/20 at 12:00; Status DC Midazolam HCl (Versed) 2 mg 1X ONCE IV ; Start 05/25/20 at 10:30; Stop 05/25/20 at 10:31; Status Cancel Fentanyl Citrate (Fentanyl 2ml Vial) 50 mcg 1X ONCE IM ; Start 05/25/20 at 10:30; Stop 05/25/20 at 10:31; Status Cancel Hydralazine HCl (Apresoline Inj) 10 mg PRN Q4HRS PRN IVP ELEVATED BP, SEE COMMENTS Last administered on 05/29/20at 11:06; Start 05/25/20 at 16:15 Potassium Chloride (Klor-Con) 40 meq 1X ONCE PO Last administered on 05/26/20at 18:43; Start 05/26/20 at 18:30; Stop 05/26/20 at 18:31; Status DC Insulin Glargine (Lantus Syringe) 22 unit BID SQ Last administered on 05/29/20at 08:24; Start 05/27/20 at 21:00; Stop 05/29/20 at 12:14; Status DC Methylprednisolone Sodium Succinate (SOLU-Medrol 125MG VIAL) 40 mg Q12HR IV Last administered on 05/28/20at 08:52; Start 05/27/20 at 19:00; Stop 05/28/20 at 13:37; Status DC Nystatin (Nystatin Oral Susp) 5 ml [id number] Last administered on 05/30/20at 08:34; Start 05/27/20 at 17:00 Insulin Human Lispro (HumaLOG) 20 units 1X ONCE SQ Last administered on 05/27/20at 17:32; Start 05/27/20 at 17:30; Stop 05/27/20 at 17:31; Status DC Methylprednisolone Sodium Succinate (SOLU-Medrol 40MG VIAL) 40 mg Q12HR IV Last administered on 05/30/20at 08:34; Start 05/28/20 at 21:00; Stop 05/30/20 at 14:10; Status DC Amoxicillin/ Clavulanate Potassium (Augmentin 875/ 125mg) 1 tab BID PO Last administered on 05/30/20at 08:33; Start 05/28/20 at 21:00; Stop 05/31/20 at 21:01 Amlodipine Besylate (Norvasc) 2.5 mg DAILY PO Last administered on 05/30/20at 08 :33; Start 05/29/20 at 11:45 Furosemide (Lasix) 20 mg 1X ONCE PO Last administered on 05/29/20at 12:40; Start 05/29/20 at 12:30; Stop 05/29/20 at 12:31; Status DC Potassium Chloride (Klor-Con) 20 meq 1X ONCE PO Last administered on 05/29/20at 12:40; Start 05/29/20 at 12:30; Stop 05/29/20 at 12:31; Status DC Insulin Glargine (Lantus Syringe) 25 unit BID SQ Last administered on 05/30/20at 08:48; Start 05/29/20 at 21:00 Furosemide (Lasix) 40 mg 1X ONCE IVP Last administered on 05/30/20at 11:47; Start 05/30/20 at 11:15; Stop 05/30/20 at 11:16; Status DC Iohexol (Omnipaque 350 Mg/ml) 100 ml 1X ONCE IV Last administered on 05/30/20at 12:00; Start 05/30/20 at 12:00; Stop 05/30/20 at 12:01; Status DC Info (CONTRAST GIVEN -- Rx MONITORING) 1 each PRN DAILY PRN MC SEE COMMENTS; Start 05/30/20 at 12:15; Stop 06/01/20 at 12:14 Sterile Water (WATER for RESP) 1,000 ml CONT PRN INH VIA VAPOTHERM DEVICE Last administered on 05/30/20at 14:45; Start 05/30/20 at 13:00 Methylprednisolone Sodium Succinate (SOLU-Medrol 125MG VIAL) 125 mg Q12HR IV ; Start 05/30/20 at 14:15 Active Scripts Active Reported Actos (Pioglitazone Hcl) 45 Mg Tablet 1 Tab PO DAILY 30 Days Diclofenac Sodium 75 Mg Tablet. 1 Tab PO BID Klor-Con 10 (Potassium Chloride) 10 Meq Tablet.er 1 Tab PO DAILY 30 Days Metformin Hcl 1,000 Mg Tablet 1,000 Mg PO BIDWMEALS Omeprazole 20 Mg Capsule. 1 Cap PO DAILY Lisinopril-Hctz 20-25 Mg Tab (Lisinopril/Hydrochlorothiazide) 1 Each Tablet 1 Tab PO DAILY Aspirin Ec (Aspirin) 81 Mg Tablet.dr 1 Tab PO DAILY Hydralazine Hcl 100 Mg Tablet 1 Tab PO BID Metoprolol Tartrate 50 Mg Tablet 1 Tab PO BID Rosuvastatin Calcium 10 Mg Tablet 10 Mg PO DAILY Vitals/I & O Vital Sign - Last 24 Hours 05/29/20 05/29/20 05/29/20 05/29/20 19:01 19:14 19:40 20:30 Temp 98.3 98.3 Pulse 60 60 Resp 16 B/P (MAP) 157/54 (88) 157/54 Pulse Ox 94 91 O2 Delivery Nasal Cannula Nasal Cannula Nasal Cannula O2 Flow Rate 5.0 5.0 5.0 05/29/20 05/29/20 05/29/20 05/30/20 20:30 22:54 23:07 03:09 Temp 98.8 98.4 98.8 98.4 Pulse 60 61 60 Resp 16 24 B/P (MAP) 157/54 141/84 (103) 153/68 (96) Pulse Ox 86 95 91 O2 Delivery Nasal Cannula Nasal Cannula Nasal Cannula O2 Flow Rate 5.0 5.0 6.5 05/30/20 05/30/20 05/30/20 05/30/20 03:12 07:00 07:02 07:57 Temp 98.9 98.9 Pulse 55 Resp 24 B/P (MAP) 160/73 (102) Pulse Ox 92 96 92 97 O2 Delivery Nasal Cannula BiPAP/CPAP BiPAP/CPAP BiPAP/CPAP O2 Flow Rate 5.0 05/30/20 05/30/20 05/30/20 05/30/20 08:00 08:33 08:33 08:34 Pulse 55 55 55 B/P (MAP) 160/73 160/73 160/73 O2 Delivery Bi-pap 05/30/20 05/30/20 05/30/20 05/30/20 09:00 09:22 11:00 11:40 Temp 98.6 98.6 Pulse 55 65 Resp 24 B/P (MAP) 160/73 133/58 (83) Pulse Ox 95 93 94 O2 Delivery BiPAP/CPAP BiPAP/CPAP BiPAP/CPAP 05/30/20 05/30/20 05/30/20 05/30/20 12:00 13:00 13:23 13:30 Temp 98.6 98.6 Pulse 62 64 Resp 24 24 B/P (MAP) 157/66 (96) 159/55 (89) Pulse Ox 95 96 92 92 O2 Delivery BiPAP/CPAP BiPAP/CPAP VAPOTHERM Vapotherm O2 Flow Rate 40.0 40.0 05/30/20 05/30/20 05/30/20 05/30/20 14:00 14:30 15:07 15:53 Pulse 56 54 Resp 24 24 B/P (MAP) 158/79 (105) 141/77 (98) Pulse Ox 97 97 98 O2 Delivery Vapotherm Vapotherm VAPOTHERM O2 Flow Rate 40.0 40.0 40.0 40.0 Intake and Output 05/29/20 05/29/20 05/30/20 15:00 23:00 07:00 Intake Total 360 ml 200 ml Output Total 75 ml 300 ml 300 ml Balance 285 ml -300 ml -100 ml Justicifation of Admission Dx: Justifications for Admission: Justification of Admission Dx: Yes Altered Mental Status: Altered Mental Status SAMUEL BHATIA MD May 30, 2020 16:25
[2020-05-30] MEDS: ENOXAPARIN 40 MG/0.4 ML SYRINGE. SQ SCH (17:19)
[2020-05-30] MEDS: methylPREDNISolone SOD SUCC PF 125 MG/2 ML VIAL. IV SCH ×2 (17:19→20:39)
[2020-05-30] MEDS: ACETAMINOPHEN 325 MG TABLET. PO PRN (20:09)
[2020-05-30] MEDS: ATORVASTATIN CALCIUM 40 MG TABLET. PO SCH (20:41)
[2020-05-31] VITALS (24 sets, daily range): BP systolic 114–156; BP diastolic 41–77
[2020-05-31] MEDS: ALBUTEROL SULFATE 2.5 MG/3 ML NEBU. NEB SCH ×4 (04:00→12:00)
[2020-05-31 05:29] LABS: BASO % 0 % (0-3); EOS % 0 % (0-3); HEMATOCRIT 27.6 % (36.0-47.0); HEMOGLOBIN 8.8 g/dL (12.0-15.5); LYMPH # 0.2 x10^3/uL (1.0-4.8); LYMPH % 2 % (24-48); MEAN CORPUSCULAR HEMOGLOBIN 27 pg (25-35); MEAN CORPUSCULAR HGB CONC 32 g/dL (31-37); MEAN CORPUSCULAR VOLUME 83 fL (79-100); MONO # 0.3 x10^3/uL (0.0-1.1); MONO % 3 % (0-9); NEUT # 10.5 x10^3/uL (1.8-7.7); NEUT % 95 % (31-73); PLATELET COUNT 321 x10^3/uL (140-400); RED BLOOD COUNT 3.32 x10^6/uL (3.50-5.40)
[2020-05-31 05:45] LABS: CALCIUM 7.5 mg/dL (8.5-10.1); CREATININE 0.9 mg/dL (0.6-1.0); GFR 62.3; POTASSIUM 3.7 mmol/L (3.5-5.1)
--- NOTE | 2020-05-31 06:08 | NUR ---
Shift note: At 0230 patient saturation began to drop on vapotherm 40L 100%. Attempted nonrebreather at 100%, patient saturation climbed to 95-99%. Attempted to place patient back on vapotherm about 2 hours later to gain ability to speak/eat/ drink easier, saturations stayed at about 95%. At 0540, saturation began to drop to 84%, attempted nonreabreather again, but patient could not recover. Saturations dropped as low as 77%. Bipap at bedside placed back on patient with Fio2 at 90%. Patient saturations recovered back to 97-99% range. RT notified of situation with bipap as patient is still covid pending. RT ordered ABGs for this AM.
--- NOTE | 2020-05-31 07:52 | PDOC ---
Infectious Disease Note Subjective Subjective Increase SOA after using the commode. Now on BiPAP FiO2 60% No cough/F/C/aches/nausea Vital Sign Vital Signs Vital Signs Date Time Temp Pulse Resp B/P (MAP) Pulse Ox O2 Delivery O2 Flow Rate FiO2 05/31/20 06:00 54 28 114/62 (79) 98 BiPAP/CPAP 05/31/20 05:40 40.0 05/31/20 04:00 98.4 98.4 Physical Exam PHYSICAL EXAM GENERAL: Propped up in bed, alert, calm - appears comfortable HEENT: On BiPAP NECK: Supple. LUNGS: Diminished aeration bases, HEART: S1, S2. regular ABDOMEN: Obese, soft, nontender EXTREMITIES: 1+ edema lower extremities bilaterally. No cyanosis DERMATOLOGIC: Warm, dry. No generalized rash. NEUROLOGIC: Alert, responds appropriately Labs Lab Laboratory Tests Test 05/30/20 11:41 05/30/20 12:19 05/30/20 17:23 05/30/20 20:38 O2 Saturation 89 % (92-99) Arterial Blood pH 7.52 (7.35-7.45) Arterial Blood pCO2 at Patient Temp 43 mmHg (35-46) Arterial Blood pO2 at Patient Temp 55 mmHg (65-108) Arterial Blood HCO3 34 mmol/L (21-28) Arterial Blood Base Excess 10 mmol/L (-3-3) FiO2 60 Glucose (Fingerstick) 72 mg/dL (70-99) 101 mg/dL (70-99) 232 mg/dL (70-99) Test 05/31/20 05:05 White Blood Count 11.0 x10^3/uL (4.0-11.0) Red Blood Count 3.32 x10^6/uL (3.50-5.40) Hemoglobin 8.8 g/dL (12.0-15.5) Hematocrit 27.6 % (36.0-47.0) Mean Corpuscular Volume 83 fL (79-100) Mean Corpuscular Hemoglobin 27 pg (25-35) Mean Corpuscular Hemoglobin Concent 32 g/dL (31-37) Red Cell Distribution Width 17.0 % (11.5-14.5) Platelet Count 321 x10^3/uL (140-400) Neutrophils (%) (Auto) 95 % (31-73) Lymphocytes (%) (Auto) 2 % (24-48) Monocytes (%) (Auto) 3 % (0-9) Eosinophils (%) (Auto) 0 % (0-3) Basophils (%) (Auto) 0 % (0-3) Neutrophils # (Auto) 10.5 x10^3/uL (1.8-7.7) Lymphocytes # (Auto) 0.2 x10^3/uL (1.0-4.8) Monocytes # (Auto) 0.3 x10^3/uL (0.0-1.1) Eosinophils # (Auto) 0.0 x10^3/uL (0.0-0.7) Basophils # (Auto) 0.0 x10^3/uL (0.0-0.2) Sodium Level 142 mmol/L (136-145) Potassium Level 3.7 mmol/L (3.5-5.1) Chloride Level 100 mmol/L (98-107) Carbon Dioxide Level 36 mmol/L (21-32) Anion Gap 6 (6-14) Blood Urea Nitrogen 23 mg/dL (7-20) Creatinine 0.9 mg/dL (0.6-1.0) Estimated GFR (Cockcroft-Gault) 62.3 Glucose Level 269 mg/dL (70-99) Calcium Level 7.5 mg/dL (8.5-10.1) Micro CT Scan 05/30Impression: 1. No evidence of pulmonary embolism. 2. Mild left effusion and moderate bilateral infiltrates right worse than left. This could be ARDS or pulmonary edema or atypical pneumonia. Microbiology 05/26/20 Gram Stain Evaluation - Final, Complete 05/26/20 Respiratory Culture - Final, Complete 05/24/20 Blood Culture - Final, Complete NO GROWTH AFTER 5 DAYS 05/18/20 Urine Culture - Final, Complete Objective Assessment Acute hypoxic respiratory failure - on Bipap Pneumonia. sputum cx: Resp gerri. Off vanc/Zosyn/doxy. On Augmentin through today - COVID-19 negative on 05/18/2020 and 05/19/2020. Fever - now resolved Leukocytosis, on steroids. CHF Hypoglycemic encephalopathy, resolved. Diabetes. Hypertension. Severe protein-calorie malnutrition. Gram-positive cocci bacteremia, 05/18/2020, 1 out of 2 bottles, ID MICROCOCCUS SPECIES, likely a contaminant. Plan Plan of Care Steroids per pulm Augmentin till 05/31 Nystatin SWSW, 05/27 BC neg Maintain aspiration precautions Supportive care D/w nursing CHERRY MARCANO MD May 31, 2020 07:52
[2020-05-31] MEDS: INSULIN LISPRO 300 UNITS/3 ML VIAL. SQ SCH ×3 (08:13→17:08)
--- NOTE | 2020-05-31 09:00 | NUR ---
patient put high flow oxygen for breakfast; desat to 78%.
--- NOTE | 2020-05-31 09:02 | PDOC ---
PULMONARY PROGRESS NOTES Subjective Patient requires high flow oxygen and BiPAP at time Vitals Vital Signs Date Time Temp Pulse Resp B/P (MAP) Pulse Ox O2 Delivery O2 Flow Rate FiO2 05/31/20 08:00 69 24 156/57 (90) 93 BiPAP/CPAP 05/31/20 07:00 98.0 98.0 05/31/20 05:40 40.0 Comments Turkish-speaking only ROS: No Nausea, No Chest Pain, No Abdominal Pain General: Alert, Oriented X4 Lungs: Clear Cardiovascular: S1, S2 Abdomen: Soft Neuro Exam: Alert Extremities: Other (+2 BLE ) Skin: Warm Labs Laboratory Tests Test 05/29/20 11:39 05/29/20 16:33 05/29/20 20:29 05/30/20 05:58 Glucose (Fingerstick) 255 mg/dL (70-99) 263 mg/dL (70-99) 157 mg/dL (70-99) O2 Saturation 84 % (92-99) Arterial Blood pH 7.46 (7.35-7.45) Arterial Blood pCO2 at Patient Temp 47 mmHg (35-46) Arterial Blood pO2 at Patient Temp 51 mmHg (65-108) Arterial Blood HCO3 32 mmol/L (21-28) Arterial Blood Base Excess 8 mmol/L (-3-3) FiO2 50 Test 05/30/20 06:40 05/30/20 07:14 05/30/20 11:41 05/30/20 12:19 White Blood Count 15.5 x10^3/uL (4.0-11.0) Red Blood Count 3.21 x10^6/uL (3.50-5.40) Hemoglobin 8.6 g/dL (12.0-15.5) Hematocrit 26.8 % (36.0-47.0) Mean Corpuscular Volume 84 fL (79-100) Mean Corpuscular Hemoglobin 27 pg (25-35) Mean Corpuscular Hemoglobin Concent 32 g/dL (31-37) Red Cell Distribution Width 16.9 % (11.5-14.5) Platelet Count 331 x10^3/uL (140-400) Neutrophils (%) (Auto) 95 % (31-73) Lymphocytes (%) (Auto) 2 % (24-48) Monocytes (%) (Auto) 3 % (0-9) Eosinophils (%) (Auto) 0 % (0-3) Basophils (%) (Auto) 0 % (0-3) Neutrophils # (Auto) 14.7 x10^3/uL (1.8-7.7) Lymphocytes # (Auto) 0.3 x10^3/uL (1.0-4.8) Monocytes # (Auto) 0.4 x10^3/uL (0.0-1.1) Eosinophils # (Auto) 0.0 x10^3/uL (0.0-0.7) Basophils # (Auto) 0.0 x10^3/uL (0.0-0.2) D-Dimer (Shu) 1.77 ug/mlFEU (0.00-0.50) Sodium Level 139 mmol/L (136-145) Potassium Level 4.1 mmol/L (3.5-5.1) Chloride Level 100 mmol/L (98-107) Carbon Dioxide Level 34 mmol/L (21-32) Anion Gap 5 (6-14) Blood Urea Nitrogen 19 mg/dL (7-20) Creatinine 0.8 mg/dL (0.6-1.0) Estimated GFR (Cockcroft-Gault) 71.3 BUN/Creatinine Ratio 24 (6-20) Glucose Level 121 mg/dL (70-99) Calcium Level 7.9 mg/dL (8.5-10.1) Total Bilirubin 0.7 mg/dL (0.2-1.0) Aspartate Amino Transf (AST/SGOT) 45 U/L (15-37) Alanine Aminotransferase (ALT/SGPT) 59 U/L (14-59) Alkaline Phosphatase 245 U/L (46-116) Total Protein 6.3 g/dL (6.4-8.2) Albumin 2.0 g/dL (3.4-5.0) Albumin/Globulin Ratio 0.5 (1.0-1.7) Glucose (Fingerstick) 103 mg/dL (70-99) 72 mg/dL (70-99) O2 Saturation 89 % (92-99) Arterial Blood pH 7.52 (7.35-7.45) Arterial Blood pCO2 at Patient Temp 43 mmHg (35-46) Arterial Blood pO2 at Patient Temp 55 mmHg (65-108) Arterial Blood HCO3 34 mmol/L (21-28) Arterial Blood Base Excess 10 mmol/L (-3-3) FiO2 60 Test 05/30/20 17:23 05/30/20 20:38 05/31/20 05:05 Glucose (Fingerstick) 101 mg/dL (70-99) 232 mg/dL (70-99) White Blood Count 11.0 x10^3/uL (4.0-11.0) Red Blood Count 3.32 x10^6/uL (3.50-5.40) Hemoglobin 8.8 g/dL (12.0-15.5) Hematocrit 27.6 % (36.0-47.0) Mean Corpuscular Volume 83 fL (79-100) Mean Corpuscular Hemoglobin 27 pg (25-35) Mean Corpuscular Hemoglobin Concent 32 g/dL (31-37) Red Cell Distribution Width 17.0 % (11.5-14.5) Platelet Count 321 x10^3/uL (140-400) Neutrophils (%) (Auto) 95 % (31-73) Lymphocytes (%) (Auto) 2 % (24-48) Monocytes (%) (Auto) 3 % (0-9) Eosinophils (%) (Auto) 0 % (0-3) Basophils (%) (Auto) 0 % (0-3) Neutrophils # (Auto) 10.5 x10^3/uL (1.8-7.7) Lymphocytes # (Auto) 0.2 x10^3/uL (1.0-4.8) Monocytes # (Auto) 0.3 x10^3/uL (0.0-1.1) Eosinophils # (Auto) 0.0 x10^3/uL (0.0-0.7) Basophils # (Auto) 0.0 x10^3/uL (0.0-0.2) Sodium Level 142 mmol/L (136-145) Potassium Level 3.7 mmol/L (3.5-5.1) Chloride Level 100 mmol/L (98-107) Carbon Dioxide Level 36 mmol/L (21-32) Anion Gap 6 (6-14) Blood Urea Nitrogen 23 mg/dL (7-20) Creatinine 0.9 mg/dL (0.6-1.0) Estimated GFR (Cockcroft-Gault) 62.3 Glucose Level 269 mg/dL (70-99) Calcium Level 7.5 mg/dL (8.5-10.1) Laboratory Tests Test 05/30/20 11:41 05/30/20 12:19 05/30/20 17:23 05/30/20 20:38 O2 Saturation 89 % (92-99) Arterial Blood pH 7.52 (7.35-7.45) Arterial Blood pCO2 at Patient Temp 43 mmHg (35-46) Arterial Blood pO2 at Patient Temp 55 mmHg (65-108) Arterial Blood HCO3 34 mmol/L (21-28) Arterial Blood Base Excess 10 mmol/L (-3-3) FiO2 60 Glucose (Fingerstick) 72 mg/dL (70-99) 101 mg/dL (70-99) 232 mg/dL (70-99) Test 05/31/20 05:05 White Blood Count 11.0 x10^3/uL (4.0-11.0) Red Blood Count 3.32 x10^6/uL (3.50-5.40) Hemoglobin 8.8 g/dL (12.0-15.5) Hematocrit 27.6 % (36.0-47.0) Mean Corpuscular Volume 83 fL (79-100) Mean Corpuscular Hemoglobin 27 pg (25-35) Mean Corpuscular Hemoglobin Concent 32 g/dL (31-37) Red Cell Distribution Width 17.0 % (11.5-14.5) Platelet Count 321 x10^3/uL (140-400) Neutrophils (%) (Auto) 95 % (31-73) Lymphocytes (%) (Auto) 2 % (24-48) Monocytes (%) (Auto) 3 % (0-9) Eosinophils (%) (Auto) 0 % (0-3) Basophils (%) (Auto) 0 % (0-3) Neutrophils # (Auto) 10.5 x10^3/uL (1.8-7.7) Lymphocytes # (Auto) 0.2 x10^3/uL (1.0-4.8) Monocytes # (Auto) 0.3 x10^3/uL (0.0-1.1) Eosinophils # (Auto) 0.0 x10^3/uL (0.0-0.7) Basophils # (Auto) 0.0 x10^3/uL (0.0-0.2) Sodium Level 142 mmol/L (136-145) Potassium Level 3.7 mmol/L (3.5-5.1) Chloride Level 100 mmol/L (98-107) Carbon Dioxide Level 36 mmol/L (21-32) Anion Gap 6 (6-14) Blood Urea Nitrogen 23 mg/dL (7-20) Creatinine 0.9 mg/dL (0.6-1.0) Estimated GFR (Cockcroft-Gault) 62.3 Glucose Level 269 mg/dL (70-99) Calcium Level 7.5 mg/dL (8.5-10.1) Medications Active Scripts Medications Dose Route/Sig Max Daily Dose Days Date Category Actos (Pioglitazone Hcl) 45 Mg Tablet 1 Tab PO DAILY 30 05/18/20 Reported Diclofenac Sodium 75 Mg Tablet.dr 1 Tab PO BID 05/18/20 Reported Klor-Con 10 (Potassium Chloride) 10 Meq Tablet.er 1 Tab PO DAILY 30 05/18/20 Reported Metformin Hcl 1,000 Mg Tablet 1,000 Mg PO BIDWMEALS 05/18/20 Reported Omeprazole 20 Mg Capsule.dr 1 Cap PO DAILY 05/18/20 Reported Lisinopril-Hctz 20-25 Mg Tab (Lisinopril/Hydrochlorothiazide) 1 Each Tablet 1 Tab PO DAILY 05/18/20 Reported Aspirin Ec (Aspirin) 81 Mg Tablet.dr 1 Tab PO DAILY 05/18/20 Reported Hydralazine Hcl 100 Mg Tablet 1 Tab PO BID 05/18/20 Reported Metoprolol Tartrate 50 Mg Tablet 1 Tab PO BID 05/18/20 Reported Rosuvastatin Calcium 10 Mg Tablet 10 Mg PO DAILY 05/18/20 Reported Comments CXR : Impression: Moderate bilateral infiltrates could be secondary to atypical pneumonia or CHF. This appears similar to the prior study although there is improved aeration of the left lung base. Impression . IMPRESSION: 1. Acute hypoxic respiratory failure--worsening now on BIPAP 2. Abnormal chest x-ray/ARDS 3. Fever, resolved 4. Hypoglycemic encephalopathy, resolved. 5. Severe protein-calorie malnutrition. 6. Mild azotemia. 7. SARS-CoV-2 negative x2 8. Negative blood cultures 9. Possible Boop 10. Negative CT angiogram for PE 11. Acute lung injury Impression: 1. No evidence of pulmonary embolism. 2. Mild left effusion and moderate bilateral infiltrates right worse than left. This could be ARDS or pulmonary edema or atypical pneumonia. Plan . Discussed with Dr. Little from infectious disease continue current support Discussed with daughter on the phone answer the whole of her questions, informed her that she had acute lung injury which will improve with time and support with steroids and oxygen Increase steroid, I do not think she needs additional antibiotics Continue BiPAP at current settings 60%, obtain chest x-ray and ABG Diuresis ABX per ID SARS-CoV-2 negative x2 repeat test pending DM per IM HTN per IM PT/OT D/W RN and RT KING WHITTINGTON MD May 31, 2020 09:02
[2020-05-31 09:06] LABS: BASE EXCESS ABG 9 mmol/L (-3-3); HCO3 ABG 32 mmol/L (21-28); PCO2 ABG 36 mmHg (35-46); PO2 ABG 73 mmHg (65-108); SAT O2 ABG 94 % (92-99)
--- NOTE | 2020-05-31 09:44 | PDOC ---
PROGRESS NOTES Assessment Problems Medical Problems: (1) Altered mental status Status: Acute (2) Hypoglycemia Status: Acute (3) Hypothermia Status: Acute Encephalopathy due to hypoglycemia and hypothermia, no evidence of any acute stroke, the CT finding is not clinically relevant and does not merit any additional attention especially with her lack of symptoms and normal examination. Moreover, this would be expected in someone who has had hypertension and diabetes for several years. Ruled out for COVID, has pulmonary infiltrate, under treatment for pneumonia Plan No additional neurological studies needed. I had signed off, but given critical illness, I will keep an eye on her with you and follow at intervals Subjective Denies pain Objective Vital Signs Date Time Temp Pulse Resp B/P (MAP) Pulse Ox O2 Delivery O2 Flow Rate FiO2 05/31/20 08:49 88 BiPAP/CPAP 05/31/20 08:00 69 24 156/57 (90) 05/31/20 07:00 98.0 98.0 05/31/20 05:40 40.0 Intake and Output 05/31/20 07:00 Intake Total 500 ml Output Total 4335 ml Balance -3835 ml Intake Oral 500 ml Output Urine Total 4335 ml PHYSICAL EXAM Alert. Oriented to time, place and person. Speaks only Lithuanian. PERRL. EOMI. CN: no focal findings. Muscle tone: normal. Muscle strength: 5/5 DTR: 2+ Plantar reflex: flexor Gait: not examined in bed. Sensory exam: no abnormal findings. No cerebellar signs elicited. Review of Relevant I have reviewed the following items kavya (where applicable) has been applied. Labs Laboratory Tests Test 05/29/20 11:39 05/29/20 16:33 05/29/20 20:29 05/30/20 05:58 Glucose (Fingerstick) 255 mg/dL (70-99) 263 mg/dL (70-99) 157 mg/dL (70-99) O2 Saturation 84 % (92-99) Arterial Blood pH 7.46 (7.35-7.45) Arterial Blood pCO2 at Patient Temp 47 mmHg (35-46) Arterial Blood pO2 at Patient Temp 51 mmHg (65-108) Arterial Blood HCO3 32 mmol/L (21-28) Arterial Blood Base Excess 8 mmol/L (-3-3) FiO2 50 Test 05/30/20 06:40 05/30/20 07:14 05/30/20 11:41 05/30/20 12:19 White Blood Count 15.5 x10^3/uL (4.0-11.0) Red Blood Count 3.21 x10^6/uL (3.50-5.40) Hemoglobin 8.6 g/dL (12.0-15.5) Hematocrit 26.8 % (36.0-47.0) Mean Corpuscular Volume 84 fL (79-100) Mean Corpuscular Hemoglobin 27 pg (25-35) Mean Corpuscular Hemoglobin Concent 32 g/dL (31-37) Red Cell Distribution Width 16.9 % (11.5-14.5) Platelet Count 331 x10^3/uL (140-400) Neutrophils (%) (Auto) 95 % (31-73) Lymphocytes (%) (Auto) 2 % (24-48) Monocytes (%) (Auto) 3 % (0-9) Eosinophils (%) (Auto) 0 % (0-3) Basophils (%) (Auto) 0 % (0-3) Neutrophils # (Auto) 14.7 x10^3/uL (1.8-7.7) Lymphocytes # (Auto) 0.3 x10^3/uL (1.0-4.8) Monocytes # (Auto) 0.4 x10^3/uL (0.0-1.1) Eosinophils # (Auto) 0.0 x10^3/uL (0.0-0.7) Basophils # (Auto) 0.0 x10^3/uL (0.0-0.2) D-Dimer (Shu) 1.77 ug/mlFEU (0.00-0.50) Sodium Level 139 mmol/L (136-145) Potassium Level 4.1 mmol/L (3.5-5.1) Chloride Level 100 mmol/L (98-107) Carbon Dioxide Level 34 mmol/L (21-32) Anion Gap 5 (6-14) Blood Urea Nitrogen 19 mg/dL (7-20) Creatinine 0.8 mg/dL (0.6-1.0) Estimated GFR (Cockcroft-Gault) 71.3 BUN/Creatinine Ratio 24 (6-20) Glucose Level 121 mg/dL (70-99) Calcium Level 7.9 mg/dL (8.5-10.1) Total Bilirubin 0.7 mg/dL (0.2-1.0) Aspartate Amino Transf (AST/SGOT) 45 U/L (15-37) Alanine Aminotransferase (ALT/SGPT) 59 U/L (14-59) Alkaline Phosphatase 245 U/L (46-116) Total Protein 6.3 g/dL (6.4-8.2) Albumin 2.0 g/dL (3.4-5.0) Albumin/Globulin Ratio 0.5 (1.0-1.7) Glucose (Fingerstick) 103 mg/dL (70-99) 72 mg/dL (70-99) O2 Saturation 89 % (92-99) Arterial Blood pH 7.52 (7.35-7.45) Arterial Blood pCO2 at Patient Temp 43 mmHg (35-46) Arterial Blood pO2 at Patient Temp 55 mmHg (65-108) Arterial Blood HCO3 34 mmol/L (21-28) Arterial Blood Base Excess 10 mmol/L (-3-3) FiO2 60 Test 05/30/20 17:23 05/30/20 20:38 05/31/20 05:05 Glucose (Fingerstick) 101 mg/dL (70-99) 232 mg/dL (70-99) White Blood Count 11.0 x10^3/uL (4.0-11.0) Red Blood Count 3.32 x10^6/uL (3.50-5.40) Hemoglobin 8.8 g/dL (12.0-15.5) Hematocrit 27.6 % (36.0-47.0) Mean Corpuscular Volume 83 fL (79-100) Mean Corpuscular Hemoglobin 27 pg (25-35) Mean Corpuscular Hemoglobin Concent 32 g/dL (31-37) Red Cell Distribution Width 17.0 % (11.5-14.5) Platelet Count 321 x10^3/uL (140-400) Neutrophils (%) (Auto) 95 % (31-73) Lymphocytes (%) (Auto) 2 % (24-48) Monocytes (%) (Auto) 3 % (0-9) Eosinophils (%) (Auto) 0 % (0-3) Basophils (%) (Auto) 0 % (0-3) Neutrophils # (Auto) 10.5 x10^3/uL (1.8-7.7) Lymphocytes # (Auto) 0.2 x10^3/uL (1.0-4.8) Monocytes # (Auto) 0.3 x10^3/uL (0.0-1.1) Eosinophils # (Auto) 0.0 x10^3/uL (0.0-0.7) Basophils # (Auto) 0.0 x10^3/uL (0.0-0.2) Sodium Level 142 mmol/L (136-145) Potassium Level 3.7 mmol/L (3.5-5.1) Chloride Level 100 mmol/L (98-107) Carbon Dioxide Level 36 mmol/L (21-32) Anion Gap 6 (6-14) Blood Urea Nitrogen 23 mg/dL (7-20) Creatinine 0.9 mg/dL (0.6-1.0) Estimated GFR (Cockcroft-Gault) 62.3 Glucose Level 269 mg/dL (70-99) Calcium Level 7.5 mg/dL (8.5-10.1) Laboratory Tests Test 05/30/20 11:41 05/30/20 12:19 05/30/20 17:23 05/30/20 20:38 O2 Saturation 89 % (92-99) Arterial Blood pH 7.52 (7.35-7.45) Arterial Blood pCO2 at Patient Temp 43 mmHg (35-46) Arterial Blood pO2 at Patient Temp 55 mmHg (65-108) Arterial Blood HCO3 34 mmol/L (21-28) Arterial Blood Base Excess 10 mmol/L (-3-3) FiO2 60 Glucose (Fingerstick) 72 mg/dL (70-99) 101 mg/dL (70-99) 232 mg/dL (70-99) Test 05/31/20 05:05 White Blood Count 11.0 x10^3/uL (4.0-11.0) Red Blood Count 3.32 x10^6/uL (3.50-5.40) Hemoglobin 8.8 g/dL (12.0-15.5) Hematocrit 27.6 % (36.0-47.0) Mean Corpuscular Volume 83 fL (79-100) Mean Corpuscular Hemoglobin 27 pg (25-35) Mean Corpuscular Hemoglobin Concent 32 g/dL (31-37) Red Cell Distribution Width 17.0 % (11.5-14.5) Platelet Count 321 x10^3/uL (140-400) Neutrophils (%) (Auto) 95 % (31-73) Lymphocytes (%) (Auto) 2 % (24-48) Monocytes (%) (Auto) 3 % (0-9) Eosinophils (%) (Auto) 0 % (0-3) Basophils (%) (Auto) 0 % (0-3) Neutrophils # (Auto) 10.5 x10^3/uL (1.8-7.7) Lymphocytes # (Auto) 0.2 x10^3/uL (1.0-4.8) Monocytes # (Auto) 0.3 x10^3/uL (0.0-1.1) Eosinophils # (Auto) 0.0 x10^3/uL (0.0-0.7) Basophils # (Auto) 0.0 x10^3/uL (0.0-0.2) Sodium Level 142 mmol/L (136-145) Potassium Level 3.7 mmol/L (3.5-5.1) Chloride Level 100 mmol/L (98-107) Carbon Dioxide Level 36 mmol/L (21-32) Anion Gap 6 (6-14) Blood Urea Nitrogen 23 mg/dL (7-20) Creatinine 0.9 mg/dL (0.6-1.0) Estimated GFR (Cockcroft-Gault) 62.3 Glucose Level 269 mg/dL (70-99) Calcium Level 7.5 mg/dL (8.5-10.1) Microbiology 05/26/20 Gram Stain Evaluation - Final, Complete 05/26/20 Respiratory Culture - Final, Complete 05/24/20 Blood Culture - Final, Complete NO GROWTH AFTER 5 DAYS 05/18/20 Urine Culture - Final, Complete Medications Current Medications Sodium Chloride 1,000 ml @ 1,000 mls/hr 1X ONCE IV Last administered on 05/18/20at 09:29; Start 05/18/20 at 09:15; Stop 05/18/20 at 10:14; Status DC Ceftriaxone Sodium (Rocephin) 1 gm 1X ONCE IVP Last administered on 05/18/20at 09:28; Start 05/18/20 at 09:15; Stop 05/18/20 at 09:16; Status DC Ondansetron HCl (Zofran) 4 mg PRN Q8HRS PRN IV NAUSEA/VOMITING; Start 05/18/20 at 10:15; Stop 05/18/20 at 16:24; Status DC Acetaminophen (Tylenol) 650 mg PRN Q4HRS PRN PO FEVER > 100.3'F; Start 05/18/20 at 10:15; Stop 05/18/20 at 16:24; Status DC Ceftriaxone Sodium (Rocephin) 1 gm Q24H IVP Last administered on 05/24/20at 09:09; Start 05/19/20 at 09:00; Stop 05/24/20 at 18:10; Status DC Sodium Chloride (Normal Saline Flush) 3 ml QSHIFT PRN IV AFTER MEDS AND BLOOD DRAWS; Start 05/18/20 at 16:30 Sodium Chloride 1,000 ml @ 85 mls/hr [id number] IV Last administered on 05/24/20at 18:31; Start 05/18/20 at 16:20; Stop 05/25/20 at 09:44; Status DC Ondansetron HCl (Zofran) 4 mg PRN Q4HRS PRN IV NAUSEA/VOMITING; Start 05/18/20 at 16:30 Acetaminophen (Tylenol) 650 mg PRN Q4HRS PRN PO TEMP OVER 100.4F OR MILD PAIN Last administered on 05/30/20at 20:09; Start 05/18/20 at 16:30 Acetaminophen (Tylenol Supp) 650 mg PRN Q4HRS PRN OR TEMP OVER 100.4F OR MILD PAIN; Start 05/18/20 at 16:30 Sodium Monofluorophosphate (Fleet Adult) 133 ml PRN DAILY PRN OR CONSTIPATION; Start 05/18/20 at 16:30 Docusate Sodium (Colace) 100 mg PRN BID PRN PO HARD STOOLS; Start 05/18/20 at 16:30 Albuterol Sulfate (Ventolin Neb Soln) 2.5 mg PRN Q4HRS PRN NEB SHORTNESS OF BREATH Last administered on 05/21/20at 18:14; Start 05/18/20 at 16:30 Guaifenesin (Robitussin) 200 mg PRN Q4HRS PRN PO COUGH Last administered on 6/28/20at 20:00; Start 05/18/20 at 16:30 Enoxaparin Sodium (Lovenox 40mg Syringe) 40 mg Q24H SQ Last administered on 05/30/20 17:19; Start 05/18/20 at 17:00 Aspirin (Ecotrin) 81 mg DAILY PO Last administered on 05/30/20 08:33; Start 05/19/20 at 09:00 Metoprolol Tartrate (Lopressor) 50 mg BID PO Last administered on 05/21/20 09:16; Start 05/19/20 at 09:00; Stop 05/21/20 at 15:45; Status DC Diclofenac Sodium (Voltaren) 75 mg BID PO Last administered on 05/30/20 20:40; Start 05/19/20 at 10:00 Hydralazine HCl (Apresoline) 100 mg BID PO Last administered on 05/21/20 09:1 5; Start 05/19/20 at 09:00; Stop 05/21/20 at 15:45; Status DC Lisinopril (Prinivil) 20 mg DAILY PO Last administered on 05/21/20 09:16; Start 05/19/20 at 10:00; Stop 05/21/20 at 15:45; Status DC Pantoprazole Sodium (Protonix) 40 mg DAILYAC PO Last administered on 05/30/20 08:34; Start 05/19/20 at 10:00 Atorvastatin Calcium (Lipitor) 40 mg QHS PO Last administered on 05/30/20 20:41; Start 05/19/20 at 21:00 Hydrochlorothiazide (Hydrodiuril) 25 mg DAILY PO Last administered on 05/23/20 08:59; Start 05/19/20 at 10:00; Stop 05/23/20 at 10:22; Status DC Lactobacillus Rhamnosus (Culturelle) 1 cap BID PO Last administered on 05/30/20 20:41; Start 05/19/20 at 21:00 Insulin Human Lispro (HumaLOG) 0-7 UNITS TIDWMEALS SQ Last administered on 05/31/20 08:13; Start 05/19/20 at 17:00 Dextrose (Dextrose 50%-Water Syringe) 12.5 gm PRN Q15MIN PRN IV SEE COMMENTS; Start 05/19/20 at 14:15 Methimazole (Tapazole) 5 mg BID PO Last administered on 05/30/20at 20:41; Start 05/20/20 at 10:00 Insulin Glargine (Lantus Syringe) 5 unit DAILY SQ Last administered on 05/22/20at 09:15; Start 05/21/20 at 09:00; Stop 05/22/20 at 21:05; Status DC Doxycycline Hyclate (Vibra-Tab) 100 mg BID PO Last administered on 05/28/20at 08:53; Start 05/21/20 at 15:00; Stop 05/28/20 at 15:02; Status DC Furosemide (Lasix) 20 mg 1X ONCE IVP Last administered on 05/21/20at 17:05; Start 05/21/20 at 17:00; Stop 05/21/20 at 17:01; Status DC Sterile Water (WATER for RESP) 1,000 ml CONT PRN INH VIA VAPOTHERM DEVICE Last administered on 05/23/20at 16:26; Start 05/21/20 at 17:15; Stop 05/30/20 at 12:58; Status DC Albuterol Sulfate (Ventolin Neb Soln) 2.5 mg Q4HRS NEB Last administered on 05/30/20at 15:45; Start 05/21/20 at 20:00 Vancomycin HCl (Vanco Per Pharmacy) 1 each PRN DAILY PRN MC SEE COMMENTS Last administered on 05/25/20at 23:52; Start 05/22/20 at 09:00; Stop 05/27/20 at 16:29; Status DC Vancomycin HCl 2 gm/Sodium Chloride 500 ml @ 250 mls/hr 1X ONCE IV Last administered on 05/22/20at 09:05; Start 05/22/20 at 09:00; Stop 05/22/20 at 10:59; Status DC Vancomycin HCl 1.25 gm/Sodium Chloride 250 ml @ 167 mls/hr Q24H IV Last administered on 05/23/20at 09:00; Start 05/23/20 at 09:00; Stop 05/24/20 at 10:05; Status DC Vancomycin HCl (Vancomycin Trough Level) 1 each 1X ONCE MC Last administered on 05/24/20at 08:30; Start 05/24/20 at 08:30; Stop 05/24/20 at 08:31; Status DC Methylprednisolone Sodium Succinate (SOLU-Medrol 125MG VIAL) 80 mg Q8HRS IV Last administered on 05/27/20at 06:04; Start 05/22/20 at 14:00; Stop 05/27/20 at 12:02; Status DC Insulin Glargine (Lantus Syringe) 10 unit BID SQ Last administered on 05/23/20at 09:11; Start 05/22/20 at 21:00; Stop 05/23/20 at 20:17; Status DC Metoprolol Tartrate (Lopressor) 50 mg BID PO Last administered on 05/30/20at 20:40; Start 05/23/20 at 10:30 Hydrochlorothiazide (Microzide) 12.5 mg DAILY PO Last administered on 05/30/20at 08:32; Start 05/24/20 at 09:00 Potassium Chloride (Klor-Con) 40 meq Q2H PO Last administered on 05/23/20at 14:58; Start 05/23/20 at 10:30; Stop 05/23/20 at 14:31; Status DC Lisinopril (Prinivil) 40 mg DAILY PO Last administered on 05/30/20at 08:34; Start 05/23/20 at 10:30 Hydralazine HCl (Apresoline) 100 mg BID PO Last administered on 05/30/20at 20:41; Start 05/23/20 at 10:30 Insulin Glargine (Lantus Syringe) 10 unit BID SQ Last administered on 05/24/20at 09:14; Start 05/23/20 at 21:00; Stop 05/24/20 at 11:28; Status DC Vancomycin HCl 1.25 gm/Sodium Chloride 250 ml @ 167 mls/hr Q12H IV Last administered on 05/27/20at 08:21; Start 05/24/20 at 10:30; Stop 05/27/20 at 16:26; Status DC Vancomycin HCl (Vancomycin Trough Level) 1 each 1X ONCE MC Last administered on 05/25/20at 22:00; Start 05/25/20 at 22:00; Stop 05/25/20 at 22:01; Status DC Insulin Glargine (Lantus Syringe) 12 unit BID SQ ; Start 05/24/20 at 21:00; Stop 05/24/20 at 17:27; Status DC Insulin Glargine (Lantus Syringe) 15 unit BID SQ Last administered on 05/25/20at 08:19; Start 05/24/20 at 21:00; Stop 05/25/20 at 09:47; Status DC Insulin Human Lispro (HumaLOG) 7 units 1X ONCE SQ Last administered on 05/24/20at 18:01; Start 05/24/20 at 17:30; Stop 05/24/20 at 17:31; Status DC Piperacillin Sod/ Tazobactam Sod 3.375 gm/Sodium Chloride 50 ml @ 100 mls/hr Q6HRS IV Last administered on 05/28/20at 12:09; Start 05/24/20 at 18:30; Stop 05/28/20 at 15:01; Status DC Insulin Human Lispro (HumaLOG) 11 units 1X SQ ; Start 05/24/20 at 21:30; Status Cancel Insulin Human Lispro (HumaLOG) 11 units 1X ONCE SQ Last administered on 05/24/20at 22:25; Start 05/24/20 at 22:00; Stop 05/24/20 at 22:01; Status DC Furosemide (Lasix) 20 mg 1X ONCE IVP Last administered on 05/25/20at 11:12; Start 05/25/20 at 10:00; Stop 05/25/20 at 10:01; Status DC Insulin Glargine (Lantus Syringe) 18 unit BID SQ Last administered on 05/27/20at 08:33; Start 05/25/20 at 21:00; Stop 05/27/20 at 12:00; Status DC Midazolam HCl (Versed) 2 mg 1X ONCE IV ; Start 05/25/20 at 10:30; Stop 05/25/20 at 10:31; Status Cancel Fentanyl Citrate (Fentanyl 2ml Vial) 50 mcg 1X ONCE IM ; Start 05/25/20 at 10:30; Stop 05/25/20 at 10:31; Status Cancel Hydralazine HCl (Apresoline Inj) 10 mg PRN Q4HRS PRN IVP ELEVATED BP, SEE COMMENTS Last administered on 05/29/20at 11:06; Start 05/25/20 at 16:15 Potassium Chloride (Klor-Con) 40 meq 1X ONCE PO Last administered on 05/26/20at 18:43; Start 05/26/20 at 18:30; Stop 05/26/20 at 18:31; Status DC Insulin Glargine (Lantus Syringe) 22 unit BID SQ Last administered on 05/29/20 08:24; Start 05/27/20 at 21:00; Stop 05/29/20 at 12:14; Status DC Methylprednisolone Sodium Succinate (SOLU-Medrol 125MG VIAL) 40 mg Q12HR IV Last administered on 05/28/20 08:52; Start 05/27/20 at 19:00; Stop 05/28/20 at 13:37; Status DC Nystatin (Nystatin Oral Susp) 5 ml [id number] Last administered on 05/30/20 20:39; Start 05/27/20 at 17:00 Insulin Human Lispro (HumaLOG) 20 units 1X ONCE SQ Last administered on 05/27/20at 17:32; Start 05/27/20 at 17:30; Stop 05/27/20 at 17:31; Status DC Methylprednisolone Sodium Succinate (SOLU-Medrol 40MG VIAL) 40 mg Q12HR IV Last administered on 05/30/20 08:34; Start 05/28/20 at 21:00; Stop 05/30/20 at 14:10; Status DC Amoxicillin/ Clavulanate Potassium (Augmentin 875/ 125mg) 1 tab BID PO Last administered on 05/30/20 20:39; Start 05/28/20 at 21:00; Stop 05/31/20 at 21:01 Amlodipine Besylate (Norvasc) 2.5 mg DAILY PO Last administered on 05/30/20 08:33; Start 05/29/20 at 11:45 Furosemide (Lasix) 20 mg 1X ONCE PO Last administered on 05/29/20 12:40; Start 05/29/20 at 12:30; Stop 05/29/20 at 12:31; Status DC Potassium Chloride (Klor-Con) 20 meq 1X ONCE PO Last administered on 05/29/20at 12:40; Start 05/29/20 at 12:30; Stop 05/29/20 at 12:31; Status DC Insulin Glargine (Lantus Syringe) 25 unit BID SQ Last administered on 05/30/20at 20:44; Start 05/29/20 at 21:00 Furosemide (Lasix) 40 mg 1X ONCE IVP Last administered on 05/30/20at 11:47; Start 05/30/20 at 11:15; Stop 05/30/20 at 11:16; Status DC Iohexol (Omnipaque 350 Mg/ml) 100 ml 1X ONCE IV Last administered on 05/30/20at 12:00; Start 05/30/20 at 12:00; Stop 05/30/20 at 12:01; Status DC Info (CONTRAST GIVEN -- Rx MONITORING) 1 each PRN DAILY PRN MC SEE COMMENTS; Start 05/30/20 at 12:15; Stop 06/01/20 at 12:14 Sterile Water (WATER for RESP) 1,000 ml CONT PRN INH VIA VAPOTHERM DEVICE Last administered on 05/30/20at 22:34; Start 05/30/20 at 13:00 Methylprednisolone Sodium Succinate (SOLU-Medrol 125MG VIAL) 125 mg Q12HR IV Last administered on 05/30/20at 20:39; Start 05/30/20 at 14:15 Active Scripts Active Reported Actos (Pioglitazone Hcl) 45 Mg Tablet 1 Tab PO DAILY 30 Days Diclofenac Sodium 75 Mg Tablet.dr 1 Tab PO BID Klor-Con 10 (Potassium Chloride) 10 Meq Tablet.er 1 Tab PO DAILY 30 Days Metformin Hcl 1,000 Mg Tablet 1,000 Mg PO BIDWMEALS Omeprazole 20 Mg Capsule.dr 1 Cap PO DAILY Lisinopril-Hctz 20-25 Mg Tab (Lisinopril/Hydrochlorothiazide) 1 Each Tablet 1 Tab PO DAILY Aspirin Ec (Aspirin) 81 Mg Tablet.dr 1 Tab PO DAILY Hydralazine Hcl 100 Mg Tablet 1 Tab PO BID Metoprolol Tartrate 50 Mg Tablet 1 Tab PO BID Rosuvastatin Calcium 10 Mg Tablet 10 Mg PO DAILY Vitals/I & O Vital Sign - Last 24 Hours 05/30/20 05/30/20 05/30/20 05/30/20 11:00 11:40 12:00 13:00 Temp 98.6 98.6 98.6 98.6 Pulse 65 62 Resp 24 24 B/P (MAP) 133/58 (83) 157/66 (96) Pulse Ox 93 94 95 96 O2 Delivery BiPAP/CPAP BiPAP/CPAP BiPAP/CPAP BiPAP/CPAP 05/30/20 05/30/20 05/30/20 05/30/20 13:23 13:30 14:00 14:30 Pulse 64 56 54 Resp 24 24 24 B/P (MAP) 159/55 (89) 158/79 (105) 141/77 (98) Pulse Ox 92 92 97 97 O2 Delivery VAPOTHERM Vapotherm Vapotherm Vapotherm O2 Flow Rate 40.0 40.0 40.0 40.0 05/30/20 05/30/20 05/30/20 05/30/20 15:00 15:07 15:53 16:00 Temp 97.5 97.5 Pulse 58 72 Resp 28 28 B/P (MAP) 148/57 (87) 111/46 (67) Pulse Ox 97 98 97 O2 Delivery Vapotherm VAPOTHERM Vapotherm O2 Flow Rate 40.0 40.0 40.0 40.0 05/30/20 05/30/20 05/30/20 05/30/20 17:00 18:00 19:00 20:00 Temp 98.4 98.4 Pulse 68 77 82 69 Resp 34 24 22 28 B/P (MAP) 135/52 (79) 152/59 (90) 138/82 (100) 128/53 (78) Pulse Ox 93 94 92 94 O2 Delivery Vapotherm Vapotherm Vapotherm Vapotherm O2 Flow Rate 40.0 40.0 40.0 40.0 05/30/20 05/30/20 05/30/20 05/30/20 20:00 20:11 20:40 20:41 Pulse 67 67 B/P (MAP) 156/58 156/58 Pulse Ox 94 O2 Delivery Nasal Cannula VAPOTHERM O2 Flow Rate 40.0 40.0 05/30/20 05/30/20 05/30/20 05/30/20 21:00 22:00 23:00 23:44 Pulse 80 60 60 Resp 26 30 28 B/P (MAP) 156/58 (90) 140/53 (82) 133/44 (73) Pulse Ox 94 92 94 90 O2 Delivery Vapotherm Vapotherm Vapotherm VAPOTHERM O2 Flow Rate 40.0 40.0 40.0 40.0 05/30/20 05/31/20 05/31/20 05/31/20 23:50 00:01 01:00 02:00 Temp 97.8 97.8 Pulse 62 61 61 Resp 30 32 28 B/P (MAP) 125/57 (79) 117/48 (71) 140/56 (84) Pulse Ox 89 95 92 O2 Delivery Nasal Cannula Vapotherm Vapotherm Vapotherm O2 Flow Rate 40.0 40.0 40.0 40.0 05/31/20 05/31/20 05/31/20 05/31/20 02:45 03:00 04:00 04:00 Temp 98.4 98.4 Pulse 61 55 Resp 28 26 B/P (MAP) 141/59 (86) 136/47 (76) Pulse Ox 85 95 98 O2 Delivery Vapotherm NonRebreather Mask Non-Rebreather NonRebreather Mask O2 Flow Rate 40.0 15.0 15.0 15.0 05/31/20 05/31/20 05/31/20 05/31/20 05:00 05:40 06:00 07:00 Temp 98.0 98.0 Pulse 49 54 50 Resp 28 28 24 B/P (MAP) 156/59 (91) 114/62 (79) 155/77 (103) Pulse Ox 95 81 98 99 O2 Delivery Vapotherm Vapotherm BiPAP/CPAP BiPAP/CPAP O2 Flow Rate 40.0 40.0 05/31/20 05/31/20 05/31/20 08:00 08:00 08:49 Pulse 69 Resp 24 B/P (MAP) 156/57 (90) Pulse Ox 93 88 O2 Delivery Bi-pap BiPAP/CPAP BiPAP/CPAP Intake and Output 05/30/20 05/30/20 05/31/20 15:00 23:00 07:00 Intake Total 150 ml 350 ml Output Total 1300 ml 2640 ml 395 ml Balance -1150 ml -2290 ml -395 ml Justicifation of Admission Dx: Justifications for Admission: Justification of Admission Dx: Yes Altered Mental Status: Altered Mental Status DARREL CASTRO MD May 31, 2020 09:44
[2020-05-31] MEDS: NYSTATIN 100,000 UNITS/ML 5 ML ORAL.SUSP. SWSW SCH ×4 (11:04→19:52)
[2020-05-31] MEDS: methylPREDNISolone SOD SUCC PF 125 MG/2 ML VIAL. IV SCH ×2 (11:04→19:52)
[2020-05-31] MEDS: ASPIRIN ENTERIC COATED 81 MG TABLET.DR. PO SCH (11:05)
[2020-05-31] MEDS: DICLOFENAC SODIUM 25 MG TABLET.DR PO SCH ×2 (11:05→19:53)
[2020-05-31] MEDS: LISINOPRIL 20 MG TABLET PO SCH (11:05)
[2020-05-31] MEDS: AMOXICILLIN/K CLAV 875/125MG TABLET. PO SCH ×2 (11:05→19:53)
[2020-05-31] MEDS: amLODIPine BESYLATE 5 MG TABLET PO SCH (11:06)
[2020-05-31] MEDS: PANTOPRAZOLE 40 MG TABLET.DR. PO SCH (11:06)
[2020-05-31] MEDS: LACTOBACILLUS RHAMNOSUS GG 1 CAPSULE. PO SCH ×2 (11:07→19:53)
[2020-05-31] MEDS: hydroCHLOROthiazide 12.5 MG CAPSULE PO SCH (11:11)
[2020-05-31] MEDS: METOPROLOL TART IMMED RELEASE 50 MG TABLET. PO SCH ×2 (11:11→21:00)
[2020-05-31] MEDS: INSULIN GLARGINE SYRINGE. SQ SCH ×2 (11:20→19:55)
[2020-05-31 11:33] LABS: FIO2 ABG 90
[2020-05-31] MEDS: methIMAzole 10 MG TABLET PO SCH ×2 (11:42→19:53)
--- NOTE | 2020-05-31 11:58 | NUR ---
SS following up with discharge planning. SS reviewed pt chart and discussed with pt RN. Pt now on BIPAP. Pt on PO antibiotics. PT/OT recommended residential unit over the weekend. Pt COVID19 negative x2. Third COVID19 test ordered and is currently pending. SS will continue to follow for discharge planning.
--- NOTE | 2020-05-31 12:30 | NUR ---
patient put on nasal cannula high flow at 15 lpm and non-rebreather mask for lunch. Desat to 78%. Recovered quickly once bipap put back on patient.
[2020-05-31] MEDS: ENOXAPARIN 40 MG/0.4 ML SYRINGE. SQ SCH (17:03)
--- NOTE | 2020-05-31 18:12 | NUR ---
Patient placed on High flow o2 and nonrebreather mask during dinner; pulse ox down to 78% and patient breathing heavier. Returned back to bipap and patient recovered over 15 minutes to pulse ox 91%
--- NOTE | 2020-05-31 18:40 | NUR ---
oxygen increased to 100% on bipap since patient was not maintaining 90+ sats; continued to maintain 86% when asleep.
[2020-05-31] MEDS: ATORVASTATIN CALCIUM 40 MG TABLET. PO SCH (19:54)
[2020-06-01] VITALS (24 sets, daily range): BP systolic 106–158; BP diastolic 42–99
--- NOTE | 2020-06-01 07:23 | PDOC ---
Infectious Disease Note Subjective Subjective Increase SOA after using the commode. Now on BiPAP FiO2 No cough/F/C/aches/nausea Feels better ROS ROS o/w neg Vital Sign Vital Signs Vital Signs Date Time Temp Pulse Resp B/P (MAP) Pulse Ox O2 Delivery O2 Flow Rate FiO2 06/01/20 06:20 52 151/53 (85) 97 BiPAP/CPAP 06/01/20 05:38 37 06/01/20 00:21 15.0 05/31/20 23:00 98.5 98.5 Physical Exam PHYSICAL EXAM GENERAL: Propped up in bed, alert, calm - appears comfortable HEENT: On BiPAP NECK: Supple. LUNGS: Diminished aeration bases, HEART: S1, S2. regular ABDOMEN: Obese, soft, nontender : Galan in place EXTREMITIES: trace edema lower extremities bilaterally. No cyanosis DERMATOLOGIC: Warm, dry. No generalized rash. NEUROLOGIC: Alert, responds appropriately Labs Lab Laboratory Tests Test 05/31/20 08:50 05/31/20 12:17 05/31/20 17:06 05/31/20 19:59 O2 Saturation 94 % (92-99) Arterial Blood pH 7.57 (7.35-7.45) Arterial Blood pCO2 at Patient Temp 36 mmHg (35-46) Arterial Blood pO2 at Patient Temp 73 mmHg (65-108) Arterial Blood HCO3 32 mmol/L (21-28) Arterial Blood Base Excess 9 mmol/L (-3-3) FiO2 90 Glucose (Fingerstick) 243 mg/dL (70-99) 284 mg/dL (70-99) 214 mg/dL (70-99) Micro CT Scan 05/30Impression: 1. No evidence of pulmonary embolism. 2. Mild left effusion and moderate bilateral infiltrates right worse than left. This could be ARDS or pulmonary edema or atypical pneumonia. Microbiology 05/26/20 Gram Stain Evaluation - Final, Complete 05/26/20 Respiratory Culture - Final, Complete 05/24/20 Blood Culture - Final, Complete NO GROWTH AFTER 5 DAYS 05/18/20 Urine Culture - Final, Complete Objective Assessment COVID + 05/30 - COVID-19 negative on 05/18/2020 and 05/19/2020. Acute hypoxic respiratory failure - on Bipap Pneumonia. sputum cx: Resp gerri. Off vanc/Zosyn/doxy. Off Augmentin Fever - now resolved Leukocytosis, on steroids. CHF Hypoglycemic encephalopathy, resolved. Diabetes. Hypertension. Severe protein-calorie malnutrition. Gram-positive cocci bacteremia, 05/18/2020, 1 out of 2 bottles, ID MICROCOCCUS SPECIES, likely a contaminant. Plan Plan of Care Steroids per pulm May benefit from Remdesivir/plasma but defer to Pulm off abx CMP/LDH/CRP in am Nystatin SWSW, 05/27 BC neg Maintain aspiration precautions Supportive care D/w nursing CHERRY MARCANO MD Jun 01, 2020 07:23
[2020-06-01] MEDS: LISINOPRIL 20 MG TABLET PO SCH (07:50)
[2020-06-01] MEDS: LACTOBACILLUS RHAMNOSUS GG 1 CAPSULE. PO SCH ×2 (07:51→21:02)
[2020-06-01] MEDS: methylPREDNISolone SOD SUCC PF 125 MG/2 ML VIAL. IV SCH ×2 (07:51→21:02)
[2020-06-01] MEDS: hydroCHLOROthiazide 12.5 MG CAPSULE PO SCH (07:51)
[2020-06-01] MEDS: DICLOFENAC SODIUM 25 MG TABLET.DR PO SCH ×2 (07:51→21:01)
[2020-06-01] MEDS: NYSTATIN 100,000 UNITS/ML 5 ML ORAL.SUSP. SWSW SCH ×4 (07:51→21:02)
[2020-06-01] MEDS: METOPROLOL TART IMMED RELEASE 50 MG TABLET. PO SCH ×2 (07:51→21:03)
[2020-06-01] MEDS: PANTOPRAZOLE 40 MG TABLET.DR. PO SCH (07:51)
[2020-06-01] MEDS: ASPIRIN ENTERIC COATED 81 MG TABLET.DR. PO SCH (07:52)
[2020-06-01] MEDS: methIMAzole 10 MG TABLET PO SCH ×2 (07:52→21:01)
[2020-06-01] MEDS: amLODIPine BESYLATE 5 MG TABLET PO SCH (07:53)
[2020-06-01] MEDS: INSULIN GLARGINE SYRINGE. SQ SCH ×2 (08:13→21:04)
[2020-06-01] MEDS: INSULIN LISPRO 300 UNITS/3 ML VIAL. SQ SCH ×3 (08:13→16:44)
[2020-06-01 08:33] LABS: BASE EXCESS ABG 11 mmol/L (-3-3); HCO3 ABG 35 mmol/L (21-28); PCO2 ABG 46 mmHg (35-46); PO2 ABG 72 mmHg (65-108); SAT O2 ABG 94 % (92-99)
--- NOTE | 2020-06-01 08:46 | PDOC ---
PULMONARY PROGRESS NOTES Subjective Patient on BiPAP this morning, I spoke with her, she is not more short of air. Vitals Vital Signs Date Time Temp Pulse Resp B/P (MAP) Pulse Ox O2 Delivery O2 Flow Rate FiO2 06/01/20 07:53 52 151/53 06/01/20 06:20 97 BiPAP/CPAP 06/01/20 05:38 37 06/01/20 00:21 15.0 05/31/20 23:00 98.5 98.5 ROS: No Nausea, No Chest Pain, No Abdominal Pain General: Alert, Oriented X4 Lungs: Clear Cardiovascular: S1, S2 Abdomen: Soft Neuro Exam: Alert Extremities: Other (+2 BLE ) Skin: Warm Labs Laboratory Tests Test 05/30/20 11:41 05/30/20 12:19 05/30/20 14:43 05/30/20 17:23 O2 Saturation 89 % (92-99) Arterial Blood pH 7.52 (7.35-7.45) Arterial Blood pCO2 at Patient Temp 43 mmHg (35-46) Arterial Blood pO2 at Patient Temp 55 mmHg (65-108) Arterial Blood HCO3 34 mmol/L (21-28) Arterial Blood Base Excess 10 mmol/L (-3-3) FiO2 60 Glucose (Fingerstick) 72 mg/dL (70-99) 101 mg/dL (70-99) Coronavirus (COVID-19)(PCR) Detected (NOT DETECT.) Test 05/30/20 20:38 05/31/20 05:05 05/31/20 08:50 05/31/20 12:17 Glucose (Fingerstick) 232 mg/dL (70-99) 243 mg/dL (70-99) White Blood Count 11.0 x10^3/uL (4.0-11.0) Red Blood Count 3.32 x10^6/uL (3.50-5.40) Hemoglobin 8.8 g/dL (12.0-15.5) Hematocrit 27.6 % (36.0-47.0) Mean Corpuscular Volume 83 fL (79-100) Mean Corpuscular Hemoglobin 27 pg (25-35) Mean Corpuscular Hemoglobin Concent 32 g/dL (31-37) Red Cell Distribution Width 17.0 % (11.5-14.5) Platelet Count 321 x10^3/uL (140-400) Neutrophils (%) (Auto) 95 % (31-73) Lymphocytes (%) (Auto) 2 % (24-48) Monocytes (%) (Auto) 3 % (0-9) Eosinophils (%) (Auto) 0 % (0-3) Basophils (%) (Auto) 0 % (0-3) Neutrophils # (Auto) 10.5 x10^3/uL (1.8-7.7) Lymphocytes # (Auto) 0.2 x10^3/uL (1.0-4.8) Monocytes # (Auto) 0.3 x10^3/uL (0.0-1.1) Eosinophils # (Auto) 0.0 x10^3/uL (0.0-0.7) Basophils # (Auto) 0.0 x10^3/uL (0.0-0.2) Sodium Level 142 mmol/L (136-145) Potassium Level 3.7 mmol/L (3.5-5.1) Chloride Level 100 mmol/L (98-107) Carbon Dioxide Level 36 mmol/L (21-32) Anion Gap 6 (6-14) Blood Urea Nitrogen 23 mg/dL (7-20) Creatinine 0.9 mg/dL (0.6-1.0) Estimated GFR (Cockcroft-Gault) 62.3 Glucose Level 269 mg/dL (70-99) Calcium Level 7.5 mg/dL (8.5-10.1) O2 Saturation 94 % (92-99) Arterial Blood pH 7.57 (7.35-7.45) Arterial Blood pCO2 at Patient Temp 36 mmHg (35-46) Arterial Blood pO2 at Patient Temp 73 mmHg (65-108) Arterial Blood HCO3 32 mmol/L (21-28) Arterial Blood Base Excess 9 mmol/L (-3-3) FiO2 90 Test 05/31/20 17:06 05/31/20 19:59 06/01/20 08:01 Glucose (Fingerstick) 284 mg/dL (70-99) 214 mg/dL (70-99) 180 mg/dL (70-99) Laboratory Tests Test 05/31/20 08:50 05/31/20 12:17 05/31/20 17:06 05/31/20 19:59 O2 Saturation 94 % (92-99) Arterial Blood pH 7.57 (7.35-7.45) Arterial Blood pCO2 at Patient Temp 36 mmHg (35-46) Arterial Blood pO2 at Patient Temp 73 mmHg (65-108) Arterial Blood HCO3 32 mmol/L (21-28) Arterial Blood Base Excess 9 mmol/L (-3-3) FiO2 90 Glucose (Fingerstick) 243 mg/dL (70-99) 284 mg/dL (70-99) 214 mg/dL (70-99) Test 06/01/20 08:01 Glucose (Fingerstick) 180 mg/dL (70-99) Medications Active Scripts Medications Dose Route/Sig Max Daily Dose Days Date Category Actos (Pioglitazone Hcl) 45 Mg Tablet 1 Tab PO DAILY 30 05/18/20 Reported Diclofenac Sodium 75 Mg Tablet.dr 1 Tab PO BID 05/18/20 Reported Klor-Con 10 (Potassium Chloride) 10 Meq Tablet.er 1 Tab PO DAILY 30 05/18/20 Reported Metformin Hcl 1,000 Mg Tablet 1,000 Mg PO BIDWMEALS 05/18/20 Reported Omeprazole 20 Mg Capsule.dr 1 Cap PO DAILY 05/18/20 Reported Lisinopril-Hctz 20-25 Mg Tab (Lisinopril/Hydrochlorothiazide) 1 Each Tablet 1 Tab PO DAILY 05/18/20 Reported Aspirin Ec (Aspirin) 81 Mg Tablet.dr 1 Tab PO DAILY 05/18/20 Reported Hydralazine Hcl 100 Mg Tablet 1 Tab PO BID 05/18/20 Reported Metoprolol Tartrate 50 Mg Tablet 1 Tab PO BID 05/18/20 Reported Rosuvastatin Calcium 10 Mg Tablet 10 Mg PO DAILY 05/18/20 Reported Comments CXR : Impression: Moderate bilateral infiltrates could be secondary to atypical pneumonia or CHF. This appears similar to the prior study although there is improved aeration of the left lung base. Impression . IMPRESSION: 1. Acute hypoxic respiratory failure--worsening now on BIPAP 2. Abnormal chest x-ray/ARDS 3. Fever, resolved 4. Hypoglycemic encephalopathy, resolved. 5. Severe protein-calorie malnutrition. 6. Mild azotemia. 7. SARS-CoV-2 negative x2, May 18, May 19 8. Negative blood cultures 9. Possible Boop 10. Negative CT angiogram for PE 11. Acute lung injury 11. SARS-CoV-2 positive on 05/31 Impression: 1. No evidence of pulmonary embolism. 2. Mild left effusion and moderate bilateral infiltrates right worse than left. This could be ARDS or pulmonary edema or atypical pneumonia. Plan . Repeat d-dimer SARS COVID 2, reported positive from 05/31, considering current patients status, will initiate Remdesivir Discussed with daughter on the phone, 05/31 answer the whole of her questions, informed her that she had acute lung injury which will improve with time and support with steroids and oxygen Increase steroid, I do not think she needs additional antibiotics ABG noted Diuresis ABX per ID DM per IM HTN per IM PT/OT DVT prophylaxis Lovenox twice daily D/W RN and RT KING WHITTINGTON MD Jun 01, 2020 08:46
--- NOTE | 2020-06-01 08:46 | PDOC ---
PROGRESS NOTES Chief Complaint Chief Complaint late entry, PT seen 7.6, cortney, discussed with RN, then computers went down Acute hypoxic respiratory failure secondary to multifocal infiltrate/pleural effusions sepsis Hyperthyroidism likely Graves Dz Hypoglycemic encephalopathy, IMPROVING Severe protein-calorie malnutrition. DM2, HTN urinary retention, pain, History of Present Illness History of Present Illness 05/31, still hypoxia, some dyspena, on bipap transfer to ICU for hypoxia, consider ARDS, BOOP pulm following urinary retention, maldonado placed, had been striaight cath, then unable, 1300 + fluid out from maldonado 05/29, 6 min wlk, 4 liters at rest, 10 with exertion, on 5 liters now BP too high, PRN hydralazine given, will add norvasc to mult-agent BP 05/28 urinary retention, required straight cath today, cont current IV abx, PULm and ID following 05/27, decreased the steroid dose, breathign easier, may be able to transition to PO soon cont IV abx, ID following, doing well no event increase lantus for high blood sugar, decreasing the steroid will also help Vitals Vitals Vital Signs Date Time Temp Pulse Resp B/P (MAP) Pulse Ox O2 Delivery O2 Flow Rate FiO2 06/01/20 07:53 52 151/53 06/01/20 06:20 97 BiPAP/CPAP 06/01/20 05:38 37 06/01/20 00:21 15.0 05/31/20 23:00 98.5 98.5 Physical Exam Physical Exam GENERAL: Propped up in bed, alert, calm - appears comfortable HEENT: On BiPAP NECK: Supple. LUNGS: Diminished aeration bases, HEART: S1, S2. regular ABDOMEN: Obese, soft, nontender : Maldonado in place EXTREMITIES: trace edema lower extremities bilaterally. No cyanosis DERMATOLOGIC: Warm, dry. No generalized rash. NEUROLOGIC: Alert, responds appropriately General: Alert, Cooperative, No acute distress Heart: Regular rate, Normal S1, Normal S2, No murmurs Lungs: Clear Abdomen: Normal bowel sounds, Soft, No tenderness, No hepatosplenomegaly Labs LABS Laboratory Tests Test 05/31/20 08:50 05/31/20 12:17 05/31/20 17:06 05/31/20 19:59 O2 Saturation 94 % (92-99) Arterial Blood pH 7.57 (7.35-7.45) Arterial Blood pCO2 at Patient Temp 36 mmHg (35-46) Arterial Blood pO2 at Patient Temp 73 mmHg (65-108) Arterial Blood HCO3 32 mmol/L (21-28) Arterial Blood Base Excess 9 mmol/L (-3-3) FiO2 90 Glucose (Fingerstick) 243 mg/dL (70-99) 284 mg/dL (70-99) 214 mg/dL (70-99) Test 06/01/20 08:01 Glucose (Fingerstick) 180 mg/dL (70-99) Assessment and Plan Assessmemt and Plan Problems Medical Problems: (1) Altered mental status Status: Acute (2) Hypoglycemia Status: Acute (3) Hypothermia Status: Acute Comment Review of Relevant I have reviewed the following items kavya (where applicable) has been applied. Labs Laboratory Tests Test 05/30/20 11:41 05/30/20 12:19 05/30/20 14:43 05/30/20 17:23 O2 Saturation 89 % (92-99) Arterial Blood pH 7.52 (7.35-7.45) Arterial Blood pCO2 at Patient Temp 43 mmHg (35-46) Arterial Blood pO2 at Patient Temp 55 mmHg (65-108) Arterial Blood HCO3 34 mmol/L (21-28) Arterial Blood Base Excess 10 mmol/L (-3-3) FiO2 60 Glucose (Fingerstick) 72 mg/dL (70-99) 101 mg/dL (70-99) Coronavirus (COVID-19)(PCR) Detected (NOT DETECT.) Test 05/30/20 20:38 05/31/20 05:05 05/31/20 08:50 05/31/20 12:17 Glucose (Fingerstick) 232 mg/dL (70-99) 243 mg/dL (70-99) White Blood Count 11.0 x10^3/uL (4.0-11.0) Red Blood Count 3.32 x10^6/uL (3.50-5.40) Hemoglobin 8.8 g/dL (12.0-15.5) Hematocrit 27.6 % (36.0-47.0) Mean Corpuscular Volume 83 fL (79-100) Mean Corpuscular Hemoglobin 27 pg (25-35) Mean Corpuscular Hemoglobin Concent 32 g/dL (31-37) Red Cell Distribution Width 17.0 % (11.5-14.5) Platelet Count 321 x10^3/uL (140-400) Neutrophils (%) (Auto) 95 % (31-73) Lymphocytes (%) (Auto) 2 % (24-48) Monocytes (%) (Auto) 3 % (0-9) Eosinophils (%) (Auto) 0 % (0-3) Basophils (%) (Auto) 0 % (0-3) Neutrophils # (Auto) 10.5 x10^3/uL (1.8-7.7) Lymphocytes # (Auto) 0.2 x10^3/uL (1.0-4.8) Monocytes # (Auto) 0.3 x10^3/uL (0.0-1.1) Eosinophils # (Auto) 0.0 x10^3/uL (0.0-0.7) Basophils # (Auto) 0.0 x10^3/uL (0.0-0.2) Sodium Level 142 mmol/L (136-145) Potassium Level 3.7 mmol/L (3.5-5.1) Chloride Level 100 mmol/L (98-107) Carbon Dioxide Level 36 mmol/L (21-32) Anion Gap 6 (6-14) Blood Urea Nitrogen 23 mg/dL (7-20) Creatinine 0.9 mg/dL (0.6-1.0) Estimated GFR (Cockcroft-Gault) 62.3 Glucose Level 269 mg/dL (70-99) Calcium Level 7.5 mg/dL (8.5-10.1) O2 Saturation 94 % (92-99) Arterial Blood pH 7.57 (7.35-7.45) Arterial Blood pCO2 at Patient Temp 36 mmHg (35-46) Arterial Blood pO2 at Patient Temp 73 mmHg (65-108) Arterial Blood HCO3 32 mmol/L (21-28) Arterial Blood Base Excess 9 mmol/L (-3-3) FiO2 90 Test 05/31/20 17:06 05/31/20 19:59 06/01/20 08:01 Glucose (Fingerstick) 284 mg/dL (70-99) 214 mg/dL (70-99) 180 mg/dL (70-99) Laboratory Tests Test 05/31/20 08:50 05/31/20 12:17 05/31/20 17:06 05/31/20 19:59 O2 Saturation 94 % (92-99) Arterial Blood pH 7.57 (7.35-7.45) Arterial Blood pCO2 at Patient Temp 36 mmHg (35-46) Arterial Blood pO2 at Patient Temp 73 mmHg (65-108) Arterial Blood HCO3 32 mmol/L (21-28) Arterial Blood Base Excess 9 mmol/L (-3-3) FiO2 90 Glucose (Fingerstick) 243 mg/dL (70-99) 284 mg/dL (70-99) 214 mg/dL (70-99) Test 06/01/20 08:01 Glucose (Fingerstick) 180 mg/dL (70-99) Microbiology 05/26/20 Gram Stain Evaluation - Final, Complete 05/26/20 Respiratory Culture - Final, Complete 05/24/20 Blood Culture - Final, Complete NO GROWTH AFTER 5 DAYS 05/18/20 Urine Culture - Final, Complete Medications Current Medications Sodium Chloride 1,000 ml @ 1,000 mls/hr 1X ONCE IV Last administered on 05/18/20at 09:29; Start 05/18/20 at 09:15; Stop 05/18/20 at 10:14; Status DC Ceftriaxone Sodium (Rocephin) 1 gm 1X ONCE IVP Last administered on 05/18/20at 09:28; Start 05/18/20 at 09:15; Stop 05/18/20 at 09:16; Status DC Ondansetron HCl (Zofran) 4 mg PRN Q8HRS PRN IV NAUSEA/VOMITING; Start 05/18/20 at 10:15; Stop 05/18/20 at 16:24; Status DC Acetaminophen (Tylenol) 650 mg PRN Q4HRS PRN PO FEVER > 100.3'F; Start 05/18/20 at 10:15; Stop 05/18/20 at 16:24; Status DC Ceftriaxone Sodium (Rocephin) 1 gm Q24H IVP Last administered on 05/24/20at 09:09; Start 05/19/20 at 09:00; Stop 05/24/20 at 18:10; Status DC Sodium Chloride (Normal Saline Flush) 3 ml QSHIFT PRN IV AFTER MEDS AND BLOOD DRAWS; Start 05/18/20 at 16:30 Sodium Chloride 1,000 ml @ 85 mls/hr [id number] IV Last administered on 05/24/20at 18:31; Start 05/18/20 at 16:20; Stop 05/25/20 at 09:44; Status DC Ondansetron HCl (Zofran) 4 mg PRN Q4HRS PRN IV NAUSEA/VOMITING; Start 05/18/20 at 16:30 Acetaminophen (Tylenol) 650 mg PRN Q4HRS PRN PO TEMP OVER 100.4F OR MILD PAIN Last administered on 05/30/20at 20:09; Start 05/18/20 at 16:30 Acetaminophen (Tylenol Supp) 650 mg PRN Q4HRS PRN NV TEMP OVER 100.4F OR MILD PAIN; Start 05/18/20 at 16:30 Sodium Monofluorophosphate (Fleet Adult) 133 ml PRN DAILY PRN NV CONSTIPATION; Start 05/18/20 at 16:30 Docusate Sodium (Colace) 100 mg PRN BID PRN PO HARD STOOLS; Start 05/18/20 at 16:30 Albuterol Sulfate (Ventolin Neb Soln) 2.5 mg PRN Q4HRS PRN NEB SHORTNESS OF BREATH Last administered on 05/21/20at 18:14; Start 05/18/20 at 16:30; Stop 05/31/20 at 16:19; Status DC Guaifenesin (Robitussin) 200 mg PRN Q4HRS PRN PO COUGH Last administered on 05/23/20at 20:00; Start 05/18/20 at 16:30 Enoxaparin Sodium (Lovenox 40mg Syringe) 40 mg Q24H SQ Last administered on 05/31/20at 17:03; Start 05/18/20 at 17:00 Aspirin (Ecotrin) 81 mg DAILY PO Last administered on 06/01/20at 07:52; Start 05/19/20 at 09:00 Metoprolol Tartrate (Lopressor) 50 mg BID PO Last administered on 05/21/20at 09:16; Start 05/19/20 at 09:00; Stop 05/21/20 at 15:45; Status DC Diclofenac Sodium (Voltaren) 75 mg BID PO Last administered on 06/01/20at 07:51; Start 6/24/20 at 10:00 Hydralazine HCl (Apresoline) 100 mg BID PO Last administered on 05/21/20 09:15; Start 05/19/20 at 09:00; Stop 05/21/20 at 15:45; Status DC Lisinopril (Prinivil) 20 mg DAILY PO Last administered on 05/21/20at 09:16; Start 05/19/20 at 10:00; Stop 05/21/20 at 15:45; Status DC Pantoprazole Sodium (Protonix) 40 mg DAILYAC PO Last administered on 06/01/20 07:51; Start 05/19/20 at 10:00 Atorvastatin Calcium (Lipitor) 40 mg QHS PO Last administered on 05/31/20 19:54; Start 05/19/20 at 21:00 Hydrochlorothiazide (Hydrodiuril) 25 mg DAILY PO Last administered on 05/23/20at 08:59; Start 05/19/20 at 10:00; Stop 05/23/20 at 10:22; Status DC Lactobacillus Rhamnosus (Culturelle) 1 cap BID PO Last administered on 06/01/20at 07:51; Start 05/19/20 at 21:00 Insulin Human Lispro (HumaLOG) 0-7 UNITS TIDWMEALS SQ Last administered on 06/01/20 08:13; Start 05/19/20 at 17:00 Dextrose (Dextrose 50%-Water Syringe) 12.5 gm PRN Q15MIN PRN IV SEE COMMENTS; Start 05/19/20 at 14:15 Methimazole (Tapazole) 5 mg BID PO Last administered on 06/01/20at 07:52; Start 05/20/20 at 10:00 Insulin Glargine (Lantus Syringe) 5 unit DAILY SQ Last administered on 05/22/20at 09:15; Start 05/21/20 at 09:00; Stop 05/22/20 at 21:05; Status DC Doxycycline Hyclate (Vibra-Tab) 100 mg BID PO Last administered on 05/28/20 08:53; Start 05/21/20 at 15:00; Stop 05/28/20 at 15:02; Status DC Furosemide (Lasix) 20 mg 1X ONCE IVP Last administered on 05/21/20at 17:05; Start 05/21/20 at 17:00; Stop 05/21/20 at 17:01; Status DC Sterile Water (WATER for RESP) 1,000 ml CONT PRN INH VIA VAPOTHERM DEVICE Last administered on 05/23/20at 16:26; Start 05/21/20 at 17:15; Stop 05/30/20 at 12:58; Status DC Albuterol Sulfate (Ventolin Neb Soln) 2.5 mg Q4HRS NEB Last administered on 05/30/20at 15:45; Start 05/21/20 at 20:00; Stop 05/31/20 at 16:19; Status DC Vancomycin HCl (Vanco Per Pharmacy) 1 each PRN DAILY PRN MC SEE COMMENTS Last administered on 05/25/20at 23:52; Start 05/22/20 at 09:00; Stop 05/27/20 at 16:29; Status DC Vancomycin HCl 2 gm/Sodium Chloride 500 ml @ 250 mls/hr 1X ONCE IV Last administered on 05/22/20at 09:05; Start 05/22/20 at 09:00; Stop 05/22/20 at 10:59 ; Status DC Vancomycin HCl 1.25 gm/Sodium Chloride 250 ml @ 167 mls/hr Q24H IV Last administered on 05/23/20at 09:00; Start 05/23/20 at 09:00; Stop 05/24/20 at 10:05; Status DC Vancomycin HCl (Vancomycin Trough Level) 1 each 1X ONCE MC Last administered on 05/24/20at 08:30; Start 05/24/20 at 08:30; Stop 05/24/20 at 08:31; Status DC Methylprednisolone Sodium Succinate (SOLU-Medrol 125MG VIAL) 80 mg Q8HRS IV Last administered on 05/27/20at 06:04; Start 05/22/20 at 14:00; Stop 05/27/20 at 12:02; Status DC Insulin Glargine (Lantus Syringe) 10 unit BID SQ Last administered on 05/23/20at 09:11; Start 05/22/20 at 21:00; Stop 05/23/20 at 20:17; Status DC Metoprolol Tartrate (Lopressor) 50 mg BID PO Last administered on 06/01/20at 07:51; Start 05/23/20 at 10:30 Hydrochlorothiazide (Microzide) 12.5 mg DAILY PO Last administered on 06/01/20 07:51; Start 05/24/20 at 09:00 Potassium Chloride (Klor-Con) 40 meq Q2H PO Last administered on 05/23/20at 14:58; Start 05/23/20 at 10:30; Stop 05/23/20 at 14:31; Status DC Lisinopril (Prinivil) 40 mg DAILY PO Last administered on 06/01/20 07:50; Start 05/23/20 at 10:30 Hydralazine HCl (Apresoline) 100 mg BID PO Last administered on 06/01/20 07:52; Start 05/23/20 at 10:30 Insulin Glargine (Lantus Syringe) 10 unit BID SQ Last administered on 05/24/20at 09:14; Start 05/23/20 at 21:00; Stop 05/24/20 at 11:28; Status DC Vancomycin HCl 1.25 gm/Sodium Chloride 250 ml @ 167 mls/hr Q12H IV Last administered on 05/27/20at 08:21; Start 05/24/20 at 10:30; Stop 05/27/20 at 16:26; Status DC Vancomycin HCl (Vancomycin Trough Level) 1 each 1X ONCE MC Last administered on 05/25/20at 22:00; Start 05/25/20 at 22:00; Stop 05/25/20 at 22:01; Status DC Insulin Glargine (Lantus Syringe) 12 unit BID SQ ; Start 05/24/20 at 21:00; Stop 05/24/20 at 17:27; Status DC Insulin Glargine (Lantus Syringe) 15 unit BID SQ Last administered on 05/25/20at 08:19; Start 05/24/20 at 21:00; Stop 05/25/20 at 09:47; Status DC Insulin Human Lispro (HumaLOG) 7 units 1X ONCE SQ Last administered on 05/24/20at 18:01; Start 05/24/20 at 17:30; Stop 05/24/20 at 17:31; Status DC Piperacillin Sod/ Tazobactam Sod 3.375 gm/Sodium Chloride 50 ml @ 100 mls/hr Q6HRS IV Last administered on 05/28/20at 12:09; Start 05/24/20 at 18:30; Stop 05/28/20 at 15:01; Status DC Insulin Human Lispro (HumaLOG) 11 units 1X SQ ; Start 05/24/20 at 21:30; Status Cancel Insulin Human Lispro (HumaLOG) 11 units 1X ONCE SQ Last administered on 05/24/20at 22:25; Start 05/24/20 at 22:00; Stop 05/24/20 at 22:01; Status DC Furosemide (Lasix) 20 mg 1X ONCE IVP Last administered on 05/25/20at 11:12; Start 05/25/20 at 10:00; Stop 05/25/20 at 10:01; Status DC Insulin Glargine (Lantus Syringe) 18 unit BID SQ Last administered on 05/27/20at 08:33; Start 05/25/20 at 21:00; Stop 05/27/20 at 12:00; Status DC Midazolam HCl (Versed) 2 mg 1X ONCE IV ; Start 05/25/20 at 10:30; Stop 05/25/20 at 10:31; Status Cancel Fentanyl Citrate (Fentanyl 2ml Vial) 50 mcg 1X ONCE IM ; Start 05/25/20 at 10:30; Stop 05/25/20 at 10:31; Status Cancel Hydralazine HCl (Apresoline Inj) 10 mg PRN Q4HRS PRN IVP ELEVATED BP, SEE COMMENTS Last administered on 05/29/20at 11:06; Start 05/25/20 at 16:15 Potassium Chloride (Klor-Con) 40 meq 1X ONCE PO Last administered on 05/26/20at 18:43; Start 05/26/20 at 18:30; Stop 05/26/20 at 18:31; Status DC Insulin Glargine (Lantus Syringe) 22 unit BID SQ Last administered on 05/29/20at 08:24; Start 05/27/20 at 21:00; Stop 05/29/20 at 12:14; Status DC Methylprednisolone Sodium Succinate (SOLU-Medrol 125MG VIAL) 40 mg Q12HR IV Last administered on 05/28/20at 08:52; Start 05/27/20 at 19:00; Stop 05/28/20 at 13:37; Status DC Nystatin (Nystatin Oral Susp) 5 ml [id number] Last administered on 06/01/20at 07:51; Start 05/27/20 at 17:00 Insulin Human Lispro (HumaLOG) 20 units 1X ONCE SQ Last administered on 05/27/20 17:32; Start 05/27/20 at 17:30; Stop 05/27/20 at 17:31; Status DC Methylprednisolone Sodium Succinate (SOLU-Medrol 40MG VIAL) 40 mg Q12HR IV Last administered on 05/30/20at 08:34; Start 05/28/20 at 21:00; Stop 05/30/20 at 14:10; Status DC Amoxicillin/ Clavulanate Potassium (Augmentin 875/ 125mg) 1 tab BID PO Last administered on 05/31/20at 19:53; Start 05/28/20 at 21:00; Stop 05/31/20 at 21:01; Status DC Amlodipine Besylate (Norvasc) 2.5 mg DAILY PO Last administered on 06/01/20at 07:53; Start 05/29/20 at 11:45 Furosemide (Lasix) 20 mg 1X ONCE PO Last administered on 05/29/20at 12:40; Start 05/29/20 at 12:30; Stop 05/29/20 at 12:31; Status DC Potassium Chloride (Klor-Con) 20 meq 1X ONCE PO Last administered on 05/29/20at 12:40; Start 05/29/20 at 12:30; Stop 05/29/20 at 12:31; Status DC Insulin Glargine (Lantus Syringe) 25 unit BID SQ Last administered on 06/01/20at 08:13; Start 05/29/20 at 21:00 Furosemide (Lasix) 40 mg 1X ONCE IVP Last administered on 05/30/20at 11:47; Start 05/30/20 at 11:15; Stop 05/30/20 at 11:16; Status DC Iohexol (Omnipaque 350 Mg/ml) 100 ml 1X ONCE IV Last administered on 05/30/20at 12:00; Start 05/30/20 at 12:00; Stop 05/30/20 at 12:01; Status DC Info (CONTRAST GIVEN -- Rx MONITORING) 1 each PRN DAILY PRN MC SEE COMMENTS; Start 05/30/20 at 12:15; Stop 7/7/20 at 12:14 Sterile Water (WATER for RESP) 1,000 ml CONT PRN INH VIA VAPOTHERM DEVICE Last administered on 05/30/20at 22:34; Start 05/30/20 at 13:00 Methylprednisolone Sodium Succinate (SOLU-Medrol 125MG VIAL) 125 mg Q12HR IV Last administered on 06/01/20at 07:51; Start 05/30/20 at 14:15 Active Scripts Active Reported Actos (Pioglitazone Hcl) 45 Mg Tablet 1 Tab PO DAILY 30 Days Diclofenac Sodium 75 Mg Tablet.dr 1 Tab PO BID Klor-Con 10 (Potassium Chloride) 10 Meq Tablet.er 1 Tab PO DAILY 30 Days Metformin Hcl 1,000 Mg Tablet 1,000 Mg PO BIDWMEALS Omeprazole 20 Mg Capsule.dr 1 Cap PO DAILY Lisinopril-Hctz 20-25 Mg Tab (Lisinopril/Hydrochlorothiazide) 1 Each Tablet 1 Tab PO DAILY Aspirin Ec (Aspirin) 81 Mg Tablet.dr 1 Tab PO DAILY Hydralazine Hcl 100 Mg Tablet 1 Tab PO BID Metoprolol Tartrate 50 Mg Tablet 1 Tab PO BID Rosuvastatin Calcium 10 Mg Tablet 10 Mg PO DAILY Vitals/I & O Vital Sign - Last 24 Hours 05/31/20 05/31/20 05/31/20 05/31/20 08:49 09:00 10:00 11:00 Pulse 50 50 50 Resp 29 29 29 B/P (MAP) 125/50 (75) 145/62 (89) 143/61 (88) Pulse Ox 94 97 97 97 O2 Delivery BiPAP/CPAP BiPAP/CPAP BiPAP/CPAP BiPAP/CPAP 05/31/20 05/31/20 05/31/20 05/31/20 11:04 11:05 11:06 11:11 Pulse 69 69 69 54 B/P (MAP) 156/57 156/57 156/57 145/62 05/31/20 05/31/20 05/31/20 05/31/20 12:00 12:00 12:42 13:00 Temp 98.8 98.8 Pulse 50 50 Resp 29 29 B/P (MAP) 145/49 (81) 124/44 (70) Pulse Ox 97 94 97 O2 Delivery BiPAP/CPAP Bi-pap BiPAP/CPAP BiPAP/CPAP 05/31/20 05/31/20 05/31/20 05/31/20 14:00 15:00 16:00 16:00 Temp 98.0 98.0 Pulse 55 54 52 Resp 22 24 20 B/P (MAP) 124/44 (70) 134/43 (73) 133/41 (71) Pulse Ox 93 95 94 O2 Delivery BiPAP/CPAP BiPAP/CPAP Bi-pap BiPAP/CPAP 05/31/20 05/31/20 05/31/20 05/31/20 16:18 17:00 18:00 18:39 Pulse 53 47 Resp 28 32 32 B/P (MAP) 140/49 (79) 153/61 (91) Pulse Ox 94 92 87 86 O2 Delivery BiPAP/CPAP BiPAP/CPAP BiPAP/CPAP BiPAP/CPAP 05/31/20 05/31/20 05/31/20 05/31/20 19:00 19:41 19:53 20:00 Temp 98.5 98.5 Pulse 54 54 54 Resp 29 32 B/P (MAP) 127/52 (77) 153/61 153/58 (89) Pulse Ox 97 96 97 O2 Delivery BiPAP/CPAP BiPAP/CPAP BiPAP/CPAP 05/31/20 05/31/20 05/31/20 05/31/20 20:00 21:00 21:00 22:00 Pulse 54 53 53 Resp 31 36 B/P (MAP) 153/61 127/62 (83) 129/47 (74) Pulse Ox 91 93 O2 Delivery Bi-pap BiPAP/CPAP BiPAP/CPAP 05/31/20 05/31/20 06/01/20 06/01/20 23:00 23:06 00:21 00:26 Temp 98.5 98.5 Pulse 56 56 Resp 44 37 B/P (MAP) 132/ 135/48 (77) Pulse Ox 96 92 91 O2 Delivery BiPAP/CPAP BiPAP/CPAP Bi-pap BiPAP/CPAP O2 Flow Rate 15.0 06/01/20 06/01/20 06/01/20 06/01/20 01:35 02:11 03:02 03:05 Pulse 69 58 54 Resp 26 24 33 B/P (MAP) 115/42 (66) 133/48 (76) 137/52 (80) Pulse Ox 98 95 92 92 O2 Delivery BiPAP/CPAP BiPAP/CPAP BiPAP/CPAP BiPAP/CPAP 06/01/20 06/01/20 06/01/20 06/01/20 03:39 04:00 05:38 06:20 Pulse 53 56 52 Resp 26 37 B/P (MAP) 122/46 (71) 148/60 (89) 151/53 (85) Pulse Ox 92 98 97 O2 Delivery Bi-pap BiPAP/CPAP BiPAP/CPAP BiPAP/CPAP 06/01/20 06/01/20 06/01/20 06/01/20 07:50 07:51 07:52 07:53 Pulse 52 52 52 52 B/P (MAP) 151/53 151/53 151/53 151/53 Intake and Output 05/31/20 05/31/20 06/01/20 15:00 23:00 07:00 Intake Total 360 ml 270 ml Output Total 405 ml 330 ml 450 ml Balance -45 ml -60 ml -450 ml Justicifation of Admission Dx: Justifications for Admission: Justification of Admission Dx: Yes Altered Mental Status: Altered Mental Status SAMUEL BHATIA MD Jun 01, 2020 08:46
[2020-06-01 08:47] LABS: FIO2 ABG 100
--- NOTE | 2020-06-01 11:31 | NUR ---
SS following up with discharge planning. SS reviewed pt chart and discussed with pt RN. Pt COVID19 positive. Per RN, pt changing from BIPAP to vapotherm today. SS will continue to follow for discharge planning.
--- NOTE | 2020-06-01 14:18 | PDOC ---
PROGRESS NOTES Chief Complaint Chief Complaint late entry, PT seen 7.6, evmagdaleno, discussed with RN, then computers went down Acute hypoxic respiratory failure secondary to multifocal infiltrate/pleural effusions sepsis Hyperthyroidism likely Graves Dz Hypoglycemic encephalopathy, IMPROVING Severe protein-calorie malnutrition. DM2, HTN urinary retention, pain, History of Present Illness History of Present Illness 06/01, still hypoxia, some dyspena, on bipap COVID was pos declined over days until 2 days ago with hypxoa, 05/30 transfer to ICU for hypoxia, pulm following urinary retention, maldonado placed, had been striaight cath, Vitals Vitals Vital Signs Date Time Temp Pulse Resp B/P (MAP) Pulse Ox O2 Delivery O2 Flow Rate FiO2 06/01/20 14:00 52 26 137/50 (79) 100 BiPAP/CPAP 06/01/20 12:00 97.0 97.0 06/01/20 00:21 15.0 Physical Exam Physical Exam GENERAL: Propped up in bed, alert, calm - appears comfortable HEENT: On BiPAP NECK: Supple. LUNGS: Diminished aeration bases, HEART: S1, S2. regular ABDOMEN: Obese, soft, nontender : Maldonado in place EXTREMITIES: trace edema lower extremities bilaterally. No cyanosis DERMATOLOGIC: Warm, dry. No generalized rash. NEUROLOGIC: Alert, responds appropriately General: Alert, Cooperative, No acute distress Heart: Regular rate, Normal S1, Normal S2, No murmurs Lungs: Clear Abdomen: Normal bowel sounds, Soft, No tenderness, No hepatosplenomegaly Labs LABS Laboratory Tests Test 05/31/20 17:06 05/31/20 19:59 06/01/20 08:00 06/01/20 08:01 Glucose (Fingerstick) 284 mg/dL (70-99) 214 mg/dL (70-99) 180 mg/dL (70-99) O2 Saturation 94 % (92-99) Arterial Blood pH 7.50 (7.35-7.45) Arterial Blood pCO2 at Patient Temp 46 mmHg (35-46) Arterial Blood pO2 at Patient Temp 72 mmHg (65-108) Arterial Blood HCO3 35 mmol/L (21-28) Arterial Blood Base Excess 11 mmol/L (-3-3) FiO2 100 Test 06/01/20 12:19 Glucose (Fingerstick) 180 mg/dL (70-99) Assessment and Plan Assessmemt and Plan Problems Medical Problems: (1) Altered mental status Status: Acute (2) Hypoglycemia Status: Acute (3) Hypothermia Status: Acute Comment Review of Relevant I have reviewed the following items kavya (where applicable) has been applied. Labs Laboratory Tests Test 05/30/20 14:43 05/30/20 17:23 05/30/20 20:38 05/31/20 05:05 Coronavirus (COVID-19)(PCR) Detected (NOT DETECT.) Glucose (Fingerstick) 101 mg/dL (70-99) 232 mg/dL (70-99) White Blood Count 11.0 x10^3/uL (4.0-11.0) Red Blood Count 3.32 x10^6/uL (3.50-5.40) Hemoglobin 8.8 g/dL (12.0-15.5) Hematocrit 27.6 % (36.0-47.0) Mean Corpuscular Volume 83 fL (79-100) Mean Corpuscular Hemoglobin 27 pg (25-35) Mean Corpuscular Hemoglobin Concent 32 g/dL (31-37) Red Cell Distribution Width 17.0 % (11.5-14.5) Platelet Count 321 x10^3/uL (140-400) Neutrophils (%) (Auto) 95 % (31-73) Lymphocytes (%) (Auto) 2 % (24-48) Monocytes (%) (Auto) 3 % (0-9) Eosinophils (%) (Auto) 0 % (0-3) Basophils (%) (Auto) 0 % (0-3) Neutrophils # (Auto) 10.5 x10^3/uL (1.8-7.7) Lymphocytes # (Auto) 0.2 x10^3/uL (1.0-4.8) Monocytes # (Auto) 0.3 x10^3/uL (0.0-1.1) Eosinophils # (Auto) 0.0 x10^3/uL (0.0-0.7) Basophils # (Auto) 0.0 x10^3/uL (0.0-0.2) Sodium Level 142 mmol/L (136-145) Potassium Level 3.7 mmol/L (3.5-5.1) Chloride Level 100 mmol/L (98-107) Carbon Dioxide Level 36 mmol/L (21-32) Anion Gap 6 (6-14) Blood Urea Nitrogen 23 mg/dL (7-20) Creatinine 0.9 mg/dL (0.6-1.0) Estimated GFR (Cockcroft-Gault) 62.3 Glucose Level 269 mg/dL (70-99) Calcium Level 7.5 mg/dL (8.5-10.1) Test 05/31/20 08:50 05/31/20 12:17 05/31/20 17:06 05/31/20 19:59 O2 Saturation 94 % (92-99) Arterial Blood pH 7.57 (7.35-7.45) Arterial Blood pCO2 at Patient Temp 36 mmHg (35-46) Arterial Blood pO2 at Patient Temp 73 mmHg (65-108) Arterial Blood HCO3 32 mmol/L (21-28) Arterial Blood Base Excess 9 mmol/L (-3-3) FiO2 90 Glucose (Fingerstick) 243 mg/dL (70-99) 284 mg/dL (70-99) 214 mg/dL (70-99) Test 06/01/20 08:00 06/01/20 08:01 06/01/20 12:19 O2 Saturation 94 % (92-99) Arterial Blood pH 7.50 (7.35-7.45) Arterial Blood pCO2 at Patient Temp 46 mmHg (35-46) Arterial Blood pO2 at Patient Temp 72 mmHg (65-108) Arterial Blood HCO3 35 mmol/L (21-28) Arterial Blood Base Excess 11 mmol/L (-3-3) FiO2 100 Glucose (Fingerstick) 180 mg/dL (70-99) 180 mg/dL (70-99) Laboratory Tests Test 05/31/20 17:06 05/31/20 19:59 06/01/20 08:00 06/01/20 08:01 Glucose (Fingerstick) 284 mg/dL (70-99) 214 mg/dL (70-99) 180 mg/dL (70-99) O2 Saturation 94 % (92-99) Arterial Blood pH 7.50 (7.35-7.45) Arterial Blood pCO2 at Patient Temp 46 mmHg (35-46) Arterial Blood pO2 at Patient Temp 72 mmHg (65-108) Arterial Blood HCO3 35 mmol/L (21-28) Arterial Blood Base Excess 11 mmol/L (-3-3) FiO2 100 Test 06/01/20 12:19 Glucose (Fingerstick) 180 mg/dL (70-99) Microbiology 05/26/20 Gram Stain Evaluation - Final, Complete 05/26/20 Respiratory Culture - Final, Complete 05/24/20 Blood Culture - Final, Complete NO GROWTH AFTER 5 DAYS 05/18/20 Urine Culture - Final, Complete Medications Current Medications Sodium Chloride 1,000 ml @ 1,000 mls/hr 1X ONCE IV Last administered on 05/18/20at 09:29; Start 05/18/20 at 09:15; Stop 05/18/20 at 10:14; Status DC Ceftriaxone Sodium (Rocephin) 1 gm 1X ONCE IVP Last administered on 05/18/20at 09:28; Start 05/18/20 at 09:15; Stop 05/18/20 at 09:16; Status DC Ondansetron HCl (Zofran) 4 mg PRN Q8HRS PRN IV NAUSEA/VOMITING; Start 05/18/20 at 10:15; Stop 05/18/20 at 16:24; Status DC Acetaminophen (Tylenol) 650 mg PRN Q4HRS PRN PO FEVER > 100.3'F; Start 05/18/20 at 10:15; Stop 05/18/20 at 16:24; Status DC Ceftriaxone Sodium (Rocephin) 1 gm Q24H IVP Last administered on 05/24/20at 09:09; Start 05/19/20 at 09:00; Stop 05/24/20 at 18:10; Status DC Sodium Chloride (Normal Saline Flush) 3 ml QSHIFT PRN IV AFTER MEDS AND BLOOD DRAWS; Start 05/18/20 at 16:30 Sodium Chloride 1,000 ml @ 85 mls/hr [id number] IV Last administered on 05/24/20at 18:31; Start 05/18/20 at 16:20; Stop 05/25/20 at 09:44; Status DC Ondansetron HCl (Zofran) 4 mg PRN Q4HRS PRN IV NAUSEA/VOMITING; Start 05/18/20 at 16:30 Acetaminophen (Tylenol) 650 mg PRN Q4HRS PRN PO TEMP OVER 100.4F OR MILD PAIN Last administered on 05/30/20at 20:09; Start 05/18/20 at 16:30 Acetaminophen (Tylenol Supp) 650 mg PRN Q4HRS PRN TX TEMP OVER 100.4F OR MILD PAIN; Start 05/18/20 at 16:30 Sodium Monofluorophosphate (Fleet Adult) 133 ml PRN DAILY PRN TX CONSTIPATION; Start 05/18/20 at 16:30 Docusate Sodium (Colace) 100 mg PRN BID PRN PO HARD STOOLS; Start 05/18/20 at 16:30 Albuterol Sulfate (Ventolin Neb Soln) 2.5 mg PRN Q4HRS PRN NEB SHORTNESS OF BREATH Last administered on 05/21/20at 18:14; Start 05/18/20 at 16:30; Stop 05/31/20 at 16:19; Status DC Guaifenesin (Robitussin) 200 mg PRN Q4HRS PRN PO COUGH Last administered on 05/23/20at 20:00; Start 05/18/20 at 16:30 Enoxaparin Sodium (Lovenox 40mg Syringe) 40 mg Q24H SQ Last administered on 05/31/20at 17:03; Start 05/18/20 at 17:00; Stop 06/01/20 at 10:27; Status DC Aspirin (Ecotrin) 81 mg DAILY PO Last administered on 06/01/20at 07:52; Start 05/19/20 at 09:00 Metoprolol Tartrate (Lopressor) 50 mg BID PO Last administered on 05/21/20at 09:16; Start 05/19/20 at 09:00; Stop 05/21/20 at 15:45; Status DC Diclofenac Sodium (Voltaren) 75 mg BID PO Last administered on 06/01/20at 07:51; Start 05/19/20 at 10:00 Hydralazine HCl (Apresoline) 100 mg BID PO Last administered on 05/21/20at 09:15; Start 05/19/20 at 09:00; Stop 05/21/20 at 15:45; Status DC Lisinopril (Prinivil) 20 mg DAILY PO Last administered on 05/21/20at 09:16; Start 05/19/20 at 10:00; Stop 05/21/20 at 15:45; Status DC Pantoprazole Sodium (Protonix) 40 mg DAILYAC PO Last administered on 06/01/20 07:51; Start 05/19/20 at 10:00 Atorvastatin Calcium (Lipitor) 40 mg QHS PO Last administered on 05/31/20 19:54; Start 05/19/20 at 21:00 Hydrochlorothiazide (Hydrodiuril) 25 mg DAILY PO Last administered on 05/23/20 08:59; Start 05/19/20 at 10:00; Stop 05/23/20 at 10:22; Status DC Lactobacillus Rhamnosus (Culturelle) 1 cap BID PO Last administered on 06/01/20 07:51; Start 05/19/20 at 21:00 Insulin Human Lispro (HumaLOG) 0-7 UNITS TIDWMEALS SQ Last administered on 06/01/20 12:25; Start 05/19/20 at 17:00 Dextrose (Dextrose 50%-Water Syringe) 12.5 gm PRN Q15MIN PRN IV SEE COMMENTS; Start 05/19/20 at 14:15 Methimazole (Tapazole) 5 mg BID PO Last administered on 06/01/20 07:52; Start 05/20/20 at 10:00 Insulin Glargine (Lantus Syringe) 5 unit DAILY SQ Last administered on 05/22/20 09:15; Start 05/21/20 at 09:00; Stop 05/22/20 at 21:05; Status DC Doxycycline Hyclate (Vibra-Tab) 100 mg BID PO Last administered on 05/28/20 08:53; Start 05/21/20 at 15:00; Stop 05/28/20 at 15:02; Status DC Furosemide (Lasix) 20 mg 1X ONCE IVP Last administered on 05/21/20at 17:05; Start 05/21/20 at 17:00; Stop 05/21/20 at 17:01; Status DC Sterile Water (WATER for RESP) 1,000 ml CONT PRN INH VIA VAPOTHERM DEVICE Last administered on 05/23/20 16:26; Start 05/21/20 at 17:15; Stop 05/30/20 at 12:58; Status DC Albuterol Sulfate (Ventolin Neb Soln) 2.5 mg Q4HRS NEB Last administered on 05/30/20at 15:45; Start 05/21/20 at 20:00; Stop 05/31/20 at 16:19; Status DC Vancomycin HCl (Vanco Per Pharmacy) 1 each PRN DAILY PRN MC SEE COMMENTS Last administered on 05/25/20at 23:52; Start 05/22/20 at 09:00; Stop 05/27/20 at 16:29; Status DC Vancomycin HCl 2 gm/Sodium Chloride 500 ml @ 250 mls/hr 1X ONCE IV Last administered on 05/22/20at 09:05; Start 05/22/20 at 09:00; Stop 05/22/20 at 10:59; Status DC Vancomycin HCl 1.25 gm/Sodium Chloride 250 ml @ 167 mls/hr Q24H IV Last administered on 05/23/20at 09:00; Start 05/23/20 at 09:00; Stop 05/24/20 at 10:05; Status DC Vancomycin HCl (Vancomycin Trough Level) 1 each 1X ONCE MC Last administered on 05/24/20at 08:30; Start 05/24/20 at 08:30; Stop 05/24/20 at 08:31; Status DC Methylprednisolone Sodium Succinate (SOLU-Medrol 125MG VIAL) 80 mg Q8HRS IV Last administered on 05/27/20at 06:04; Start 05/22/20 at 14:00; Stop 05/27/20 at 12:02; Status DC Insulin Glargine (Lantus Syringe) 10 unit BID SQ Last administered on 05/23/20at 09:11; Start 05/22/20 at 21:00; Stop 05/23/20 at 20:17; Status DC Metoprolol Tartrate (Lopressor) 50 mg BID PO Last administered on 06/01/20at 07:51; Start 05/23/20 at 10:30 Hydrochlorothiazide (Microzide) 12.5 mg DAILY PO Last administered on 06/01/20at 07:51; Start 05/24/20 at 09:00 Potassium Chloride (Klor-Con) 40 meq Q2H PO Last administered on 05/23/20at 14:58; Start 05/23/20 at 10:30; Stop 05/23/20 at 14:31; Status DC Lisinopril (Prinivil) 40 mg DAILY PO Last administered on 06/01/20at 07:50; Start 05/23/20 at 10:30 Hydralazine HCl (Apresoline) 100 mg BID PO Last administered on 06/01/20at 07:52; Start 05/23/20 at 10:30 Insulin Glargine (Lantus Syringe) 10 unit BID SQ Last administered on 05/24/20at 09:14; Start 05/23/20 at 21:00; Stop 05/24/20 at 11:28; Status DC Vancomycin HCl 1.25 gm/Sodium Chloride 250 ml @ 167 mls/hr Q12H IV Last administered on 05/27/20at 08:21; Start 05/24/20 at 10:30; Stop 05/27/20 at 16:26; Status DC Vancomycin HCl (Vancomycin Trough Level) 1 each 1X ONCE MC Last administered o n 05/25/20at 22:00; Start 05/25/20 at 22:00; Stop 05/25/20 at 22:01; Status DC Insulin Glargine (Lantus Syringe) 12 unit BID SQ ; Start 05/24/20 at 21:00; Stop 05/24/20 at 17:27; Status DC Insulin Glargine (Lantus Syringe) 15 unit BID SQ Last administered on 05/25/20at 08:19; Start 05/24/20 at 21:00; Stop 05/25/20 at 09:47; Status DC Insulin Human Lispro (HumaLOG) 7 units 1X ONCE SQ Last administered on 05/24/20at 18:01; Start 05/24/20 at 17:30; Stop 05/24/20 at 17:31; Status DC Piperacillin Sod/ Tazobactam Sod 3.375 gm/Sodium Chloride 50 ml @ 100 mls/hr Q6HRS IV Last administered on 05/28/20at 12:09; Start 05/24/20 at 18:30; Stop 05/28/20 at 15:01; Status DC Insulin Human Lispro (HumaLOG) 11 units 1X SQ ; Start 05/24/20 at 21:30; Status Cancel Insulin Human Lispro (HumaLOG) 11 units 1X ONCE SQ Last administered on 05/24/20at 22:25; Start 05/24/20 at 22:00; Stop 05/24/20 at 22:01; Status DC Furosemide (Lasix) 20 mg 1X ONCE IVP Last administered on 05/25/20at 11:12; Start 05/25/20 at 10:00; Stop 05/25/20 at 10:01; Status DC Insulin Glargine (Lantus Syringe) 18 unit BID SQ Last administered on 05/27/20 08:33; Start 05/25/20 at 21:00; Stop 05/27/20 at 12:00; Status DC Midazolam HCl (Versed) 2 mg 1X ONCE IV ; Start 05/25/20 at 10:30; Stop 05/25/20 at 10:31; Status Cancel Fentanyl Citrate (Fentanyl 2ml Vial) 50 mcg 1X ONCE IM ; Start 05/25/20 at 10:30; Stop 05/25/20 at 10:31; Status Cancel Hydralazine HCl (Apresoline Inj) 10 mg PRN Q4HRS PRN IVP ELEVATED BP, SEE COMMENTS Last administered on 05/29/20at 11:06; Start 05/25/20 at 16:15 Potassium Chloride (Klor-Con) 40 meq 1X ONCE PO Last administered on 05/26/20at 18:43; Start 05/26/20 at 18:30; Stop 05/26/20 at 18:31; Status DC Insulin Glargine (Lantus Syringe) 22 unit BID SQ Last administered on 05/29/20at 08:24; Start 05/27/20 at 21:00; Stop 05/29/20 at 12:14; Status DC Methylprednisolone Sodium Succinate (SOLU-Medrol 125MG VIAL) 40 mg Q12HR IV Last administered on 05/28/20at 08:52; Start 05/27/20 at 19:00; Stop 05/28/20 at 13:37; Status DC Nystatin (Nystatin Oral Susp) 5 ml [id number] Last administered on 06/01/20at 07:51; Start 05/27/20 at 17:00 Insulin Human Lispro (HumaLOG) 20 units 1X ONCE SQ Last administered on 05/27/20at 17:32; Start 05/27/20 at 17:30; Stop 05/27/20 at 17:31; Status DC Methylprednisolone Sodium Succinate (SOLU-Medrol 40MG VIAL) 40 mg Q12HR IV Last administered on 05/30/20at 08:34; Start 05/28/20 at 21:00; Stop 05/30/20 at 14:10; Status DC Amoxicillin/ Clavulanate Potassium (Augmentin 875/ 125mg) 1 tab BID PO Last administered on 05/31/20at 19:53; Start 05/28/20 at 21:00; Stop 05/31/20 at 21:01; Status DC Amlodipine Besylate (Norvasc) 2.5 mg DAILY PO Last administered on 06/01/20at 07:53; Start 05/29/20 at 11:45 Furosemide (Lasix) 20 mg 1X ONCE PO Last administered on 05/29/20 12:40; Start 05/29/20 at 12:30; Stop 05/29/20 at 12:31; Status DC Potassium Chloride (Klor-Con) 20 meq 1X ONCE PO Last administered on 05/29/20at 12:40; Start 05/29/20 at 12:30; Stop 05/29/20 at 12:31; Status DC Insulin Glargine (Lantus Syringe) 25 unit BID SQ Last administered on 06/01/20at 08:13; Start 05/29/20 at 21:00 Furosemide (Lasix) 40 mg 1X ONCE IVP Last administered on 05/30/20at 11:47; Start 05/30/20 at 11:15; Stop 05/30/20 at 11:16; Status DC Iohexol (Omnipaque 350 Mg/ml) 100 ml 1X ONCE IV Last administered on 05/30/20at 12:00; Start 05/30/20 at 12:00; Stop 05/30/20 at 12:01; Status DC Info (CONTRAST GIVEN -- Rx MONITORING) 1 each PRN DAILY PRN MC SEE COMMENTS; Start 05/30/20 at 12:15; Stop 06/01/20 at 12:14; Status DC Sterile Water (WATER for RESP) 1,000 ml CONT PRN INH VIA VAPOTHERM DEVICE Last administered on 05/30/20at 22:34; Start 05/30/20 at 13:00 Methylprednisolone Sodium Succinate (SOLU-Medrol 125MG VIAL) 125 mg Q12HR IV Last administered on 06/01/20at 07:51; Start 05/30/20 at 14:15 Enoxaparin Sodium (Lovenox 40mg Syringe) 40 mg BID SQ ; Start 06/01/20 at 21:00 Active Scripts Active Reported Actos (Pioglitazone Hcl) 45 Mg Tablet 1 Tab PO DAILY 30 Days Diclofenac Sodium 75 Mg Tablet.dr 1 Tab PO BID Klor-Con 10 (Potassium Chloride) 10 Meq Tablet.er 1 Tab PO DAILY 30 Days Metformin Hcl 1,000 Mg Tablet 1,000 Mg PO BIDWMEALS Omeprazole 20 Mg Capsule. 1 Cap PO DAILY Lisinopril-Hctz 20-25 Mg Tab (Lisinopril/Hydrochlorothiazide) 1 Each Tablet 1 Tab PO DAILY Aspirin Ec (Aspirin) 81 Mg Tablet.dr 1 Tab PO DAILY Hydralazine Hcl 100 Mg Tablet 1 Tab PO BID Metoprolol Tartrate 50 Mg Tablet 1 Tab PO BID Rosuvastatin Calcium 10 Mg Tablet 10 Mg PO DAILY Vitals/I & O Vital Sign - Last 24 Hours 05/31/20 05/31/20 05/31/20 05/31/20 15:00 16:00 16:00 16:18 Temp 98.0 98.0 Pulse 54 52 Resp 24 20 B/P (MAP) 134/43 (73) 133/41 (71) Pulse Ox 95 94 94 O2 Delivery BiPAP/CPAP Bi-pap BiPAP/CPAP BiPAP/CPAP 05/31/20 05/31/20 05/31/20 05/31/20 17:00 18:00 18:39 19:00 Temp 98.5 98.5 Pulse 53 47 54 Resp 28 32 32 29 B/P (MAP) 140/49 (79) 153/61 (91) 127/52 (77) Pulse Ox 92 87 86 97 O2 Delivery BiPAP/CPAP BiPAP/CPAP BiPAP/CPAP BiPAP/CPAP 05/31/20 05/31/20 05/31/20 05/31/20 19:41 19:53 20:00 20:00 Pulse 54 54 Resp 32 B/P (MAP) 153/61 153/58 (89) Pulse Ox 96 97 O2 Delivery BiPAP/CPAP BiPAP/CPAP Bi-pap 05/31/20 05/31/20 05/31/20 05/31/20 21:00 21:00 22:00 23:00 Temp 98.5 98.5 Pulse 54 53 53 56 Resp 31 36 44 B/P (MAP) 153/61 127/62 (83) 129/47 (74) 132/ Pulse Ox 91 93 96 O2 Delivery BiPAP/CPAP BiPAP/CPAP BiPAP/CPAP 05/31/20 06/01/20 06/01/20 06/01/20 23:06 00:21 00:26 01:35 Pulse 56 69 Resp 37 26 B/P (MAP) 135/48 (77) 115/42 (66) Pulse Ox 92 91 98 O2 Delivery BiPAP/CPAP Bi-pap BiPAP/CPAP BiPAP/CPAP O2 Flow Rate 15.0 06/01/20 06/01/20 06/01/20 06/01/20 02:11 03:02 03:05 03:39 Pulse 58 54 Resp 24 33 B/P (MAP) 133/48 (76) 137/52 (80) Pulse Ox 95 92 92 O2 Delivery BiPAP/CPAP BiPAP/CPAP BiPAP/CPAP Bi-pap 06/01/20 06/01/20 06/01/20 06/01/20 04:00 05:38 06:20 07:00 Pulse 53 56 52 68 Resp 26 37 36 B/P (MAP) 122/46 (71) 148/60 (89) 151/53 (85) 146/61 (89) Pulse Ox 92 98 97 94 O2 Delivery BiPAP/CPAP BiPAP/CPAP BiPAP/CPAP BiPAP/CPAP 06/01/20 06/01/20 06/01/20 06/01/20 07:50 07:51 07:52 07:53 Pulse 52 52 52 52 B/P (MAP) 151/53 151/53 151/53 151/53 06/01/20 06/01/20 06/01/20 06/01/20 08:00 08:00 08:00 09:00 Temp 97.5 97.5 Pulse 80 47 Resp 37 26 B/P (MAP) 158/99 (118) 131/49 (76) Pulse Ox 98 91 98 O2 Delivery BiPAP/CPAP Bi-pap BiPAP/CPAP BiPAP/CPAP 06/01/20 06/01/20 06/01/20 06/01/20 10:00 11:00 11:57 12:00 Temp 97.0 97.0 Pulse 47 47 53 Resp 24 21 24 B/P (MAP) 121/52 (75) 127/48 (74) 119/49 (72) Pulse Ox 95 97 97 93 O2 Delivery BiPAP/CPAP BiPAP/CPAP BiPAP/CPAP BiPAP/CPAP 06/01/20 06/01/20 06/01/20 12:00 13:00 14:00 Pulse 47 52 Resp 25 26 B/P (MAP) 125/48 (73) 137/50 (79) Pulse Ox 98 100 O2 Delivery Bi-pap BiPAP/CPAP BiPAP/CPAP Intake and Output 05/31/20 05/31/20 06/01/20 15:00 23:00 07:00 Intake Total 360 ml 270 ml Output Total 405 ml 330 ml 450 ml Balance -45 ml -60 ml -450 ml Justicifation of Admission Dx: Justifications for Admission: Justification of Admission Dx: Yes Altered Mental Status: Altered Mental Status SAMUEL BHATIA MD Jun 01, 2020 14:18
[2020-06-01] MEDS ORDERED: NON FORMULARY ITEM 1 EA in IV NORMAL SALINE 250ML 210 ML IV ONE (16:30)
[2020-06-01] MEDS: ENOXAPARIN 40 MG/0.4 ML SYRINGE. SQ SCH (21:00)
[2020-06-01] MEDS: ATORVASTATIN CALCIUM 40 MG TABLET. PO SCH (21:02)
[2020-06-02] VITALS (24 sets, daily range): BP systolic 124–159; BP diastolic 40–78
[2020-06-02 06:33] LABS: ALBUMIN 1.9 g/dL (3.4-5.0); ALBUMIN/GLOBULIN RATIO 0.5 (1.0-1.7); C-REACTIVE PROTEIN 22.8 mg/L (0-3.3); CALCIUM 7.8 mg/dL (8.5-10.1); GFR 55.1; POTASSIUM 3.4 mmol/L (3.5-5.1); TOTAL BILIRUBIN 0.3 mg/dL (0.2-1.0); TOTAL PROTEIN 5.7 g/dL (6.4-8.2)
--- NOTE | 2020-06-02 07:45 | PDOC ---
Infectious Disease Note Subjective Subjective Increase SOA after using the commode. Remains on BiPAP No cough/F/C/aches/nausea Feels better Vital Sign Vital Signs Vital Signs Date Time Temp Pulse Resp B/P (MAP) Pulse Ox O2 Delivery O2 Flow Rate FiO2 06/02/20 07:00 58 28 152/52 (85) 96 BiPAP/CPAP 06/02/20 04:00 98.1 98.1 06/01/20 12:10 40.0 Physical Exam PHYSICAL EXAM GENERAL: Propped up in bed, alert, calm - appears comfortable HEENT: On BiPAP NECK: Supple. LUNGS: CTA HEART: S1, S2. regular ABDOMEN: Obese, soft, nontender : Galan in place EXTREMITIES: trace edema lower extremities bilaterally. No cyanosis DERMATOLOGIC: Warm, dry. No generalized rash. NEUROLOGIC: Alert, responds appropriately Labs Lab Laboratory Tests Test 06/01/20 08:00 06/01/20 08:01 06/01/20 12:19 06/01/20 16:39 O2 Saturation 94 % (92-99) Arterial Blood pH 7.50 (7.35-7.45) Arterial Blood pCO2 at Patient Temp 46 mmHg (35-46) Arterial Blood pO2 at Patient Temp 72 mmHg (65-108) Arterial Blood HCO3 35 mmol/L (21-28) Arterial Blood Base Excess 11 mmol/L (-3-3) FiO2 100 Glucose (Fingerstick) 180 mg/dL (70-99) 180 mg/dL (70-99) 104 mg/dL (70-99) Test 06/02/20 06:00 Sodium Level 145 mmol/L (136-145) Potassium Level 3.4 mmol/L (3.5-5.1) Chloride Level 106 mmol/L (98-107) Carbon Dioxide Level 34 mmol/L (21-32) Anion Gap 5 (6-14) Blood Urea Nitrogen 32 mg/dL (7-20) Creatinine 1.0 mg/dL (0.6-1.0) Estimated GFR (Cockcroft-Gault) 55.1 BUN/Creatinine Ratio 32 (6-20) Glucose Level 186 mg/dL (70-99) Calcium Level 7.8 mg/dL (8.5-10.1) Total Bilirubin 0.3 mg/dL (0.2-1.0) Aspartate Amino Transf (AST/SGOT) 39 U/L (15-37) Alanine Aminotransferase (ALT/SGPT) 38 U/L (14-59) Alkaline Phosphatase 215 U/L (46-116) Lactate Dehydrogenase 531 U/L (81-234) C-Reactive Protein, Quantitative 22.8 mg/L (0-3.3) Total Protein 5.7 g/dL (6.4-8.2) Albumin 1.9 g/dL (3.4-5.0) Albumin/Globulin Ratio 0.5 (1.0-1.7) Micro CT Scan 05/30Impression: 1. No evidence of pulmonary embolism. 2. Mild left effusion and moderate bilateral infiltrates right worse than left. This could be ARDS or pulmonary edema or atypical pneumonia. Microbiology 05/26/20 Gram Stain Evaluation - Final, Complete 05/26/20 Respiratory Culture - Final, Complete 05/24/20 Blood Culture - Final, Complete NO GROWTH AFTER 5 DAYS 05/18/20 Urine Culture - Final, Complete Objective Assessment COVID + 05/30 - COVID-19 negative on 05/18/2020 and 05/19/2020. Remdesivir started 06/01 Acute hypoxic respiratory failure - on Bipap Pneumonia. sputum cx: Resp gerri. Off vanc/Zosyn/doxy. Off Augmentin Fever - now resolved Leukocytosis, on steroids. CHF Hypoglycemic encephalopathy, resolved. Diabetes. Hypertension. Severe protein-calorie malnutrition. Gram-positive cocci bacteremia, 05/18/2020, 1 out of 2 bottles, ID MICROCOCCUS SPECIES, likely a contaminant. Plan Plan of Care Steroids/Remdesivir per pulm off abx Nystatin SWSW, 05/27 Maintain aspiration precautions Supportive care D/w nursing CHERRY MARCANO MD Jun 02, 2020 07:45
[2020-06-02] MEDS: ENOXAPARIN 40 MG/0.4 ML SYRINGE. SQ SCH ×2 (08:03→20:41)
[2020-06-02] MEDS: NYSTATIN 100,000 UNITS/ML 5 ML ORAL.SUSP. SWSW SCH ×4 (08:03→20:43)
[2020-06-02] MEDS: amLODIPine BESYLATE 5 MG TABLET PO SCH (08:03)
[2020-06-02] MEDS: hydroCHLOROthiazide 12.5 MG CAPSULE PO SCH (08:04)
[2020-06-02] MEDS: methIMAzole 10 MG TABLET PO SCH ×2 (08:04→20:59)
[2020-06-02] MEDS: DICLOFENAC SODIUM 25 MG TABLET.DR PO SCH ×2 (08:04→20:43)
[2020-06-02] MEDS: LACTOBACILLUS RHAMNOSUS GG 1 CAPSULE. PO SCH ×2 (08:04→20:43)
[2020-06-02] MEDS: methylPREDNISolone SOD SUCC PF 125 MG/2 ML VIAL. IV SCH ×2 (08:04→20:43)
[2020-06-02] MEDS: PANTOPRAZOLE 40 MG TABLET.DR. PO SCH (08:05)
[2020-06-02] MEDS: ASPIRIN ENTERIC COATED 81 MG TABLET.DR. PO SCH (08:06)
[2020-06-02] MEDS: LISINOPRIL 20 MG TABLET PO SCH (08:06)
[2020-06-02] MEDS: METOPROLOL TART IMMED RELEASE 50 MG TABLET. PO SCH ×2 (08:06→20:44)
[2020-06-02] MEDS: NON FORMULARY ITEM 1 EA in IV NORMAL SALINE 250ML 230 ML IV SCH (08:11)
[2020-06-02] MEDS: INSULIN GLARGINE SYRINGE. SQ SCH ×2 (08:12→21:04)
[2020-06-02 08:15] LABS: BASE EXCESS ABG 11 mmol/L (-3-3); HCO3 ABG 36 mmol/L (21-28); PCO2 ABG 50 mmHg (35-46); PO2 ABG 63 mmHg (65-108); SAT O2 ABG 90 % (92-99)
[2020-06-02] MEDS: INSULIN LISPRO 300 UNITS/3 ML VIAL. SQ SCH ×3 (08:16→17:50)
[2020-06-02 08:21] LABS: FIO2 ABG 80
--- NOTE | 2020-06-02 08:38 | PDOC ---
PULMONARY PROGRESS NOTES Subjective Patient seen, not more short of air. Off of BiPAP Vitals Vital Signs Date Time Temp Pulse Resp B/P (MAP) Pulse Ox O2 Delivery O2 Flow Rate FiO2 06/02/20 08:06 58 152/52 06/02/20 07:00 28 96 BiPAP/CPAP 06/02/20 04:00 98.1 98.1 06/01/20 12:10 40.0 ROS: No Nausea, No Chest Pain, No Abdominal Pain General: Alert, Oriented X4 Lungs: Clear Cardiovascular: S1, S2 Abdomen: Soft Neuro Exam: Alert Extremities: Other (+2 BLE ) Skin: Warm Labs Laboratory Tests Test 05/31/20 08:50 05/31/20 12:17 05/31/20 17:06 05/31/20 19:59 O2 Saturation 94 % (92-99) Arterial Blood pH 7.57 (7.35-7.45) Arterial Blood pCO2 at Patient Temp 36 mmHg (35-46) Arterial Blood pO2 at Patient Temp 73 mmHg (65-108) Arterial Blood HCO3 32 mmol/L (21-28) Arterial Blood Base Excess 9 mmol/L (-3-3) FiO2 90 Glucose (Fingerstick) 243 mg/dL (70-99) 284 mg/dL (70-99) 214 mg/dL (70-99) Test 06/01/20 08:00 06/01/20 08:01 06/01/20 12:19 06/01/20 16:39 O2 Saturation 94 % (92-99) Arterial Blood pH 7.50 (7.35-7.45) Arterial Blood pCO2 at Patient Temp 46 mmHg (35-46) Arterial Blood pO2 at Patient Temp 72 mmHg (65-108) Arterial Blood HCO3 35 mmol/L (21-28) Arterial Blood Base Excess 11 mmol/L (-3-3) FiO2 100 Glucose (Fingerstick) 180 mg/dL (70-99) 180 mg/dL (70-99) 104 mg/dL (70-99) Test 06/02/20 06:00 06/02/20 07:40 Sodium Level 145 mmol/L (136-145) Potassium Level 3.4 mmol/L (3.5-5.1) Chloride Level 106 mmol/L (98-107) Carbon Dioxide Level 34 mmol/L (21-32) Anion Gap 5 (6-14) Blood Urea Nitrogen 32 mg/dL (7-20) Creatinine 1.0 mg/dL (0.6-1.0) Estimated GFR (Cockcroft-Gault) 55.1 BUN/Creatinine Ratio 32 (6-20) Glucose Level 186 mg/dL (70-99) Calcium Level 7.8 mg/dL (8.5-10.1) Total Bilirubin 0.3 mg/dL (0.2-1.0) Aspartate Amino Transf (AST/SGOT) 39 U/L (15-37) Alanine Aminotransferase (ALT/SGPT) 38 U/L (14-59) Alkaline Phosphatase 215 U/L (46-116) Lactate Dehydrogenase 531 U/L (81-234) C-Reactive Protein, Quantitative 22.8 mg/L (0-3.3) Total Protein 5.7 g/dL (6.4-8.2) Albumin 1.9 g/dL (3.4-5.0) Albumin/Globulin Ratio 0.5 (1.0-1.7) O2 Saturation 90 % (92-99) Arterial Blood pH 7.47 (7.35-7.45) Arterial Blood pCO2 at Patient Temp 50 mmHg (35-46) Arterial Blood pO2 at Patient Temp 63 mmHg (65-108) Arterial Blood HCO3 36 mmol/L (21-28) Arterial Blood Base Excess 11 mmol/L (-3-3) FiO2 80 Laboratory Tests Test 06/01/20 12:19 06/01/20 16:39 06/02/20 06:00 06/02/20 07:40 Glucose (Fingerstick) 180 mg/dL (70-99) 104 mg/dL (70-99) Sodium Level 145 mmol/L (136-145) Potassium Level 3.4 mmol/L (3.5-5.1) Chloride Level 106 mmol/L (98-107) Carbon Dioxide Level 34 mmol/L (21-32) Anion Gap 5 (6-14) Blood Urea Nitrogen 32 mg/dL (7-20) Creatinine 1.0 mg/dL (0.6-1.0) Estimated GFR (Cockcroft-Gault) 55.1 BUN/Creatinine Ratio 32 (6-20) Glucose Level 186 mg/dL (70-99) Calcium Level 7.8 mg/dL (8.5-10.1) Total Bilirubin 0.3 mg/dL (0.2-1.0) Aspartate Amino Transf (AST/SGOT) 39 U/L (15-37) Alanine Aminotransferase (ALT/SGPT) 38 U/L (14-59) Alkaline Phosphatase 215 U/L (46-116) Lactate Dehydrogenase 531 U/L (81-234) C-Reactive Protein, Quantitative 22.8 mg/L (0-3.3) Total Protein 5.7 g/dL (6.4-8.2) Albumin 1.9 g/dL (3.4-5.0) Albumin/Globulin Ratio 0.5 (1.0-1.7) O2 Saturation 90 % (92-99) Arterial Blood pH 7.47 (7.35-7.45) Arterial Blood pCO2 at Patient Temp 50 mmHg (35-46) Arterial Blood pO2 at Patient Temp 63 mmHg (65-108) Arterial Blood HCO3 36 mmol/L (21-28) Arterial Blood Base Excess 11 mmol/L (-3-3) FiO2 80 Medications Active Scripts Medications Dose Route/Sig Max Daily Dose Days Date Category Actos (Pioglitazone Hcl) 45 Mg Tablet 1 Tab PO DAILY 30 05/18/20 Reported Diclofenac Sodium 75 Mg Tablet.dr 1 Tab PO BID 05/18/20 Reported Klor-Con 10 (Potassium Chloride) 10 Meq Tablet.er 1 Tab PO DAILY 30 05/18/20 Reported Metformin Hcl 1,000 Mg Tablet 1,000 Mg PO BIDWMEALS 05/18/20 Reported Omeprazole 20 Mg Capsule.dr 1 Cap PO DAILY 05/18/20 Reported Lisinopril-Hctz 20-25 Mg Tab (Lisinopril/Hydrochlorothiazide) 1 Each Tablet 1 Tab PO DAILY 05/18/20 Reported Aspirin Ec (Aspirin) 81 Mg Tablet.dr 1 Tab PO DAILY 05/18/20 Reported Hydralazine Hcl 100 Mg Tablet 1 Tab PO BID 05/18/20 Reported Metoprolol Tartrate 50 Mg Tablet 1 Tab PO BID 05/18/20 Reported Rosuvastatin Calcium 10 Mg Tablet 10 Mg PO DAILY 05/18/20 Reported Comments CXR : Impression: Moderate bilateral infiltrates could be secondary to atypical pneumonia or CHF. This appears similar to the prior study although there is improved aeration of the left lung base. Impression . IMPRESSION: 1. Acute hypoxic respiratory failure--worsening now on BIPAP 2. Abnormal chest x-ray/ARDS 3. Fever, resolved 4. Hypoglycemic encephalopathy, resolved. 5. Severe protein-calorie malnutrition. 6. Mild azotemia. 7. SARS-CoV-2 negative x2, May 18, May 19 8. Negative blood cultures 9. Possible Boop 10. Negative CT angiogram for PE 11. Acute lung injury 11. SARS-CoV-2 positive on 05/31 Impression: 1. No evidence of pulmonary embolism. 2. Mild left effusion and moderate bilateral infiltrates right worse than left. This could be ARDS or pulmonary edema or atypical pneumonia. Plan . Repeat d-dimer, pending Continue antiviral SARS COVID 2, reported positive from 05/31, considering current patients status, will initiate Remdesivir Discussed with daughter on the phone, 05/31 answer the whole of her questions, informed her that she had acute lung injury which will improve with time and support with steroids and oxygen Increase steroid, I do not think she needs additional antibiotics ABG noted Diuresis ABX per ID DM per IM HTN per IM PT/OT DVT prophylaxis Lovenox twice daily D/W RN and RT KING WHITTINGTON MD Jun 02, 2020 08:38
--- NOTE | 2020-06-02 12:50 | PDOC ---
PROGRESS NOTES Chief Complaint Chief Complaint Acute hypoxic respiratory failure secondary to multifocal infiltrate/pleural effusions Sepsis Hyperthyroidism likely Graves Dz Hypoglycemic encephalopathy, IMPROVING Severe protein-calorie malnutrition. DM2, HTN urinary retention, pain COVID + 05/30 - COVID-19 negative on 05/18/2020 and 05/19/2020. Remdesivir started 06/01 Pneumonia. sputum cx: Resp gerri. Off vanc/Zosyn/doxy. Off Augmentin CHF Severe protein-calorie malnutrition Gram-positive cocci bacteremia, 05/18/2020, 1 out of 2 bottles, ID MICROCOCCUS SPECIES, likely a contaminant. History of Present Illness History of Present Illness 05/30 transfer to ICU for hypoxia, urinary retention, maldonado placed, had been striaight cath, 06/01, still hypoxia, some dyspena, on bipap COVID was pos. Started on remdisivir Overnight afebrile, Increased shortness of breath after using toilet. On BIPAP overnight, transitioned to vapotherm. No cough/F/C/aches/nausea. Feels better. Family contacting nursing staff frequently. cc time 38 minutes Vitals Vitals Vital Signs Date Time Temp Pulse Resp B/P (MAP) Pulse Ox O2 Delivery O2 Flow Rate FiO2 06/02/20 12:00 98.1 91 26 133/45 (74) 91 vapor therm 98.1 06/02/20 11:19 40.0 Physical Exam Physical Exam GENERAL: Propped up in bed, alert, calm - appears comfortable HEENT: On BiPAP NECK: Supple. LUNGS: CTA HEART: S1, S2. regular ABDOMEN: Obese, soft, nontender : Maldonado in place EXTREMITIES: trace edema lower extremities bilaterally. No cyanosis DERMATOLOGIC: Warm, dry. No generalized rash. NEUROLOGIC: Alert, responds appropriately General: Alert, Cooperative, No acute distress Heart: Regular rate, Normal S1, Normal S2, No murmurs Lungs: Clear Abdomen: Normal bowel sounds, Soft, No tenderness, No hepatosplenomegaly Labs LABS Laboratory Tests Test 06/01/20 16:39 06/02/20 06:00 06/02/20 07:40 Glucose (Fingerstick) 104 mg/dL (70-99) Sodium Level 145 mmol/L (136-145) Potassium Level 3.4 mmol/L (3.5-5.1) Chloride Level 106 mmol/L (98-107) Carbon Dioxide Level 34 mmol/L (21-32) Anion Gap 5 (6-14) Blood Urea Nitrogen 32 mg/dL (7-20) Creatinine 1.0 mg/dL (0.6-1.0) Estimated GFR (Cockcroft-Gault) 55.1 BUN/Creatinine Ratio 32 (6-20) Glucose Level 186 mg/dL (70-99) Calcium Level 7.8 mg/dL (8.5-10.1) Total Bilirubin 0.3 mg/dL (0.2-1.0) Aspartate Amino Transf (AST/SGOT) 39 U/L (15-37) Alanine Aminotransferase (ALT/SGPT) 38 U/L (14-59) Alkaline Phosphatase 215 U/L (46-116) Lactate Dehydrogenase 531 U/L (81-234) C-Reactive Protein, Quantitative 22.8 mg/L (0-3.3) Total Protein 5.7 g/dL (6.4-8.2) Albumin 1.9 g/dL (3.4-5.0) Albumin/Globulin Ratio 0.5 (1.0-1.7) O2 Saturation 90 % (92-99) Arterial Blood pH 7.47 (7.35-7.45) Arterial Blood pCO2 at Patient Temp 50 mmHg (35-46) Arterial Blood pO2 at Patient Temp 63 mmHg (65-108) Arterial Blood HCO3 36 mmol/L (21-28) Arterial Blood Base Excess 11 mmol/L (-3-3) FiO2 80 Assessment and Plan Assessmemt and Plan Problems Medical Problems: (1) Altered mental status Status: Acute (2) Hypoglycemia Status: Acute (3) Hypothermia Status: Acute Comment Review of Relevant I have reviewed the following items kavya (where applicable) has been applied. Labs Laboratory Tests Test 05/31/20 17:06 05/31/20 19:59 06/01/20 08:00 06/01/20 08:01 Glucose (Fingerstick) 284 mg/dL (70-99) 214 mg/dL (70-99) 180 mg/dL (70-99) O2 Saturation 94 % (92-99) Arterial Blood pH 7.50 (7.35-7.45) Arterial Blood pCO2 at Patient Temp 46 mmHg (35-46) Arterial Blood pO2 at Patient Temp 72 mmHg (65-108) Arterial Blood HCO3 35 mmol/L (21-28) Arterial Blood Base Excess 11 mmol/L (-3-3) FiO2 100 Test 06/01/20 12:19 06/01/20 16:39 06/02/20 06:00 06/02/20 07:40 Glucose (Fingerstick) 180 mg/dL (70-99) 104 mg/dL (70-99) Sodium Level 145 mmol/L (136-145) Potassium Level 3.4 mmol/L (3.5-5.1) Chloride Level 106 mmol/L (98-107) Carbon Dioxide Level 34 mmol/L (21-32) Anion Gap 5 (6-14) Blood Urea Nitrogen 32 mg/dL (7-20) Creatinine 1.0 mg/dL (0.6-1.0) Estimated GFR (Cockcroft-Gault) 55.1 BUN/Creatinine Ratio 32 (6-20) Glucose Level 186 mg/dL (70-99) Calcium Level 7.8 mg/dL (8.5-10.1) Total Bilirubin 0.3 mg/dL (0.2-1.0) Aspartate Amino Transf (AST/SGOT) 39 U/L (15-37) Alanine Aminotransferase (ALT/SGPT) 38 U/L (14-59) Alkaline Phosphatase 215 U/L (46-116) Lactate Dehydrogenase 531 U/L (81-234) C-Reactive Protein, Quantitative 22.8 mg/L (0-3.3) Total Protein 5.7 g/dL (6.4-8.2) Albumin 1.9 g/dL (3.4-5.0) Albumin/Globulin Ratio 0.5 (1.0-1.7) O2 Saturation 90 % (92-99) Arterial Blood pH 7.47 (7.35-7.45) Arterial Blood pCO2 at Patient Temp 50 mmHg (35-46) Arterial Blood pO2 at Patient Temp 63 mmHg (65-108) Arterial Blood HCO3 36 mmol/L (21-28) Arterial Blood Base Excess 11 mmol/L (-3-3) FiO2 80 Laboratory Tests Test 06/01/20 16:39 06/02/20 06:00 06/02/20 07:40 Glucose (Fingerstick) 104 mg/dL (70-99) Sodium Level 145 mmol/L (136-145) Potassium Level 3.4 mmol/L (3.5-5.1) Chloride Level 106 mmol/L (98-107) Carbon Dioxide Level 34 mmol/L (21-32) Anion Gap 5 (6-14) Blood Urea Nitrogen 32 mg/dL (7-20) Creatinine 1.0 mg/dL (0.6-1.0) Estimated GFR (Cockcroft-Gault) 55.1 BUN/Creatinine Ratio 32 (6-20) Glucose Level 186 mg/dL (70-99) Calcium Level 7.8 mg/dL (8.5-10.1) Total Bilirubin 0.3 mg/dL (0.2-1.0) Aspartate Amino Transf (AST/SGOT) 39 U/L (15-37) Alanine Aminotransferase (ALT/SGPT) 38 U/L (14-59) Alkaline Phosphatase 215 U/L (46-116) Lactate Dehydrogenase 531 U/L (81-234) C-Reactive Protein, Quantitative 22.8 mg/L (0-3.3) Total Protein 5.7 g/dL (6.4-8.2) Albumin 1.9 g/dL (3.4-5.0) Albumin/Globulin Ratio 0.5 (1.0-1.7) O2 Saturation 90 % (92-99) Arterial Blood pH 7.47 (7.35-7.45) Arterial Blood pCO2 at Patient Temp 50 mmHg (35-46) Arterial Blood pO2 at Patient Temp 63 mmHg (65-108) Arterial Blood HCO3 36 mmol/L (21-28) Arterial Blood Base Excess 11 mmol/L (-3-3) FiO2 80 Microbiology 05/26/20 Gram Stain Evaluation - Final, Complete 05/26/20 Respiratory Culture - Final, Complete 05/24/20 Blood Culture - Final, Complete NO GROWTH AFTER 5 DAYS 05/18/20 Urine Culture - Final, Complete Medications Current Medications Sodium Chloride 1,000 ml @ 1,000 mls/hr 1X ONCE IV Last administered on 05/18/20at 09:29; Start 05/18/20 at 09:15; Stop 05/18/20 at 10:14; Status DC Ceftriaxone Sodium (Rocephin) 1 gm 1X ONCE IVP Last administered on 05/18/20at 09:28; Start 05/18/20 at 09:15; Stop 05/18/20 at 09:16; Status DC Ondansetron HCl (Zofran) 4 mg PRN Q8HRS PRN IV NAUSEA/VOMITING; Start 05/18/20 at 10:15; Stop 05/18/20 at 16:24; Status DC Acetaminophen (Tylenol) 650 mg PRN Q4HRS PRN PO FEVER > 100.3'F; Start 05/18/20 at 10:15; Stop 05/18/20 at 16:24; Status DC Ceftriaxone Sodium (Rocephin) 1 gm Q24H IVP Last administered on 05/24/20at 09:09; Start 05/19/20 at 09:00; Stop 05/24/20 at 18:10; Status DC Sodium Chloride (Normal Saline Flush) 3 ml QSHIFT PRN IV AFTER MEDS AND BLOOD DRAWS; Start 05/18/20 at 16:30 Sodium Chloride 1,000 ml @ 85 mls/hr [id number] IV Last administered on 05/24/20at 18:31; Start 05/18/20 at 16:20; Stop 05/25/20 at 09:44; Status DC Ondansetron HCl (Zofran) 4 mg PRN Q4HRS PRN IV NAUSEA/VOMITING; Start 05/18/20 at 16:30 Acetaminophen (Tylenol) 650 mg PRN Q4HRS PRN PO TEMP OVER 100.4F OR MILD PAIN Last administered on 05/30/20at 20:09; Start 05/18/20 at 16:30 Acetaminophen (Tylenol Supp) 650 mg PRN Q4HRS PRN [place] TEMP OVER 100.4F OR MILD PAIN; Start 05/18/20 at 16:30 Sodium Monofluorophosphate (Fleet Adult) 133 ml PRN DAILY PRN OH CONSTIPATION; Start 05/18/20 at 16:30 Docusate Sodium (Colace) 100 mg PRN BID PRN PO HARD STOOLS; Start 05/18/20 at 16:30 Albuterol Sulfate (Ventolin Neb Soln) 2.5 mg PRN Q4HRS PRN NEB SHORTNESS OF BREATH Last administered on 05/21/20at 18:14; Start 05/18/20 at 16:30; Stop 05/31/20 at 16:19; Status DC Guaifenesin (Robitussin) 200 mg PRN Q4HRS PRN PO COUGH Last administered on 05/23/20 20:00; Start 05/18/20 at 16:30 Enoxaparin Sodium (Lovenox 40mg Syringe) 40 mg Q24H SQ Last administered on 05/31/20 17:03; Start 05/18/20 at 17:00; Stop 06/01/20 at 10:27; Status DC Aspirin (Ecotrin) 81 mg DAILY PO Last administered on 06/02/20 08:06; Start 05/19/20 at 09:00 Metoprolol Tartrate (Lopressor) 50 mg BID PO Last administered on 05/21/20 09:16; Start 05/19/20 at 09:00; Stop 05/21/20 at 15:45; Status DC Diclofenac Sodium (Voltaren) 75 mg BID PO Last administered on 06/02/20 08:04; Start 05/19/20 at 10:00 Hydralazine HCl (Apresoline) 100 mg BID PO Last administered on 05/21/20at 09:15; Start 05/19/20 at 09:00; Stop 05/21/20 at 15:45; Status DC Lisinopril (Prinivil) 20 mg DAILY PO Last administered on 05/21/20 09:16; Start 05/19/20 at 10:00; Stop 05/21/20 at 15:45; Status DC Pantoprazole Sodium (Protonix) 40 mg DAILYAC PO Last administered on 06/02/20 08:05; Start 05/19/20 at 10:00 Atorvastatin Calcium (Lipitor) 40 mg QHS PO Last administered on 06/01/20 21:02; Start 05/19/20 at 21:00 Hydrochlorothiazide (Hydrodiuril) 25 mg DAILY PO Last administered on 05/23/20 08:59; Start 05/19/20 at 10:00; Stop 05/23/20 at 10:22; Status DC Lactobacillus Rhamnosus (Culturelle) 1 cap BID PO Last administered on 06/02/20 08:04; Start 05/19/20 at 21:00 Insulin Human Lispro (HumaLOG) 0-7 UNITS TIDWMEALS SQ Last administered on 12:26; Start 05/19/20 at 17:00 Dextrose (Dextrose 50%-Water Syringe) 12.5 gm PRN Q15MIN PRN IV SEE COMMENTS; Start 05/19/20 at 14:15 Methimazole (Tapazole) 5 mg BID PO Last administered on 06/02/20at 08:04; Start 05/20/20 at 10:00 Insulin Glargine (Lantus Syringe) 5 unit DAILY SQ Last administered on 05/22/20at 09:15; Start 05/21/20 at 09:00; Stop 05/22/20 at 21:05; Status DC Doxycycline Hyclate (Vibra-Tab) 100 mg BID PO Last administered on 05/28/20at 08:53; Start 05/21/20 at 15:00; Stop 05/28/20 at 15:02; Status DC Furosemide (Lasix) 20 mg 1X ONCE IVP Last administered on 05/21/20at 17:05; Start 05/21/20 at 17:00; Stop 05/21/20 at 17:01; Status DC Sterile Water (WATER for RESP) 1,000 ml CONT PRN INH VIA VAPOTHERM DEVICE Last administered on 05/23/20at 16:26; Start 05/21/20 at 17:15; Stop 05/30/20 at 12:58; Status DC Albuterol Sulfate (Ventolin Neb Soln) 2.5 mg Q4HRS NEB Last administered on 05/30/20at 15:45; Start 05/21/20 at 20:00; Stop 05/31/20 at 16:19; Status DC Vancomycin HCl (Vanco Per Pharmacy) 1 each PRN DAILY PRN MC SEE COMMENTS Last administered on 05/25/20at 23:52; Start 05/22/20 at 09:00; Stop 05/27/20 at 16:29; Status DC Vancomycin HCl 2 gm/Sodium Chloride 500 ml @ 250 mls/hr 1X ONCE IV Last administered on 05/22/20at 09:05; Start 05/22/20 at 09:00; Stop 05/22/20 at 10:59; Status DC Vancomycin HCl 1.25 gm/Sodium Chloride 250 ml @ 167 mls/hr Q24H IV Last adm inistered on 05/23/20at 09:00; Start 05/23/20 at 09:00; Stop 05/24/20 at 10:05; Status DC Vancomycin HCl (Vancomycin Trough Level) 1 each 1X ONCE MC Last administered on 05/24/20at 08:30; Start 05/24/20 at 08:30; Stop 05/24/20 at 08:31; Status DC Methylprednisolone Sodium Succinate (SOLU-Medrol 125MG VIAL) 80 mg Q8HRS IV Last administered on 05/27/20at 06:04; Start 05/22/20 at 14:00; Stop 05/27/20 at 12:02; Status DC Insulin Glargine (Lantus Syringe) 10 unit BID SQ Last administered on 05/23/20at 09:11; Start 05/22/20 at 21:00; Stop 05/23/20 at 20:17; Status DC Metoprolol Tartrate (Lopressor) 50 mg BID PO Last administered on 06/01/20at 21:03; Start 05/23/20 at 10:30 Hydrochlorothiazide (Microzide) 12.5 mg DAILY PO Last administered on 06/02/20at 08:04; Start 05/24/20 at 09:00 Potassium Chloride (Klor-Con) 40 meq Q2H PO Last administered on 05/23/20at 14:58; Start 05/23/20 at 10:30; Stop 05/23/20 at 14:31; Status DC Lisinopril (Prinivil) 40 mg DAILY PO Last administered on 06/01/20at 07:50; Start 05/23/20 at 10:30 Hydralazine HCl (Apresoline) 100 mg BID PO Last administered on 06/02/20at 08:03; Start 05/23/20 at 10:30 Insulin Glargine (Lantus Syringe) 10 unit BID SQ Last administered on 05/24/20at 09:14; Start 05/23/20 at 21:00; Stop 05/24/20 at 11:28; Status DC Vancomycin HCl 1.25 gm/Sodium Chloride 250 ml @ 167 mls/hr Q12H IV Last administered on 05/27/20at 08:21; Start 05/24/20 at 10:30; Stop 05/27/20 at 16:26; Status DC Vancomycin HCl (Vancomycin Trough Level) 1 each 1X ONCE MC Last administered on 05/25/20at 22:00; Start 05/25/20 at 22:00; Stop 05/25/20 at 22:01; Status DC Insulin Glargine (Lantus Syringe) 12 unit BID SQ ; Start 05/24/20 at 21:00; Stop 05/24/20 at 17:27; Status DC Insulin Glargine (Lantus Syringe) 15 unit BID SQ Last administered on 05/25/20at 08:19; Start 05/24/20 at 21:00; Stop 05/25/20 at 09:47; Status DC Insulin Human Lispro (HumaLOG) 7 units 1X ONCE SQ Last administered on 05/24/20at 18:01; Start 05/24/20 at 17:30; Stop 05/24/20 at 17:31; Status DC Piperacillin Sod/ Tazobactam Sod 3.375 gm/Sodium Chloride 50 ml @ 100 mls/hr Q6HRS IV Last administered on 05/28/20at 12:09; Start 05/24/20 at 18:30; Stop 05/28/20 at 15:01; Status DC Insulin Human Lispro (HumaLOG) 11 units 1X SQ ; Start 05/24/20 at 21:30; Status Cancel Insulin Human Lispro (HumaLOG) 11 units 1X ONCE SQ Last administered on 05/24/20at 22:25; Start 05/24/20 at 22:00; Stop 05/24/20 at 22:01; Status DC Furosemide (Lasix) 20 mg 1X ONCE IVP Last administered on 05/25/20at 11:12; Start 05/25/20 at 10:00; Stop 05/25/20 at 10:01; Status DC Insulin Glargine (Lantus Syringe) 18 unit BID SQ Last administered on 05/27/20at 08:33; Start 05/25/20 at 21:00; Stop 05/27/20 at 12:00; Status DC Midazolam HCl (Versed) 2 mg 1X ONCE IV ; Start 05/25/20 at 10:30; Stop 05/25/20 at 10:31; Status Cancel Fentanyl Citrate (Fentanyl 2ml Vial) 50 mcg 1X ONCE IM ; Start 05/25/20 at 10:30; Stop 05/25/20 at 10:31; Status Cancel Hydralazine HCl (Apresoline Inj) 10 mg PRN Q4HRS PRN IVP ELEVATED BP, SEE COMMENTS Last administered on 05/29/20at 11:06; Start 05/25/20 at 16:15 Potassium Chloride (Klor-Con) 40 meq 1X ONCE PO Last administered on 05/26/20at 18:43; Start 05/26/20 at 18:30; Stop 05/26/20 at 18:31; Status DC Insulin Glargine (Lantus Syringe) 22 unit BID SQ Last administered on 05/29/20at 08:24; Start 05/27/20 at 21:00; Stop 05/29/20 at 12:14; Status DC Methylprednisolone Sodium Succinate (SOLU-Medrol 125MG VIAL) 40 mg Q12HR IV Last administered on 05/28/20at 08:52; Start 05/27/20 at 19:00; Stop 05/28/20 at 13:37; Status DC Nystatin (Nystatin Oral Susp) 5 ml [id number] Last administered on 06/02/20 12:17; Start 05/27/20 at 17:00 Insulin Human Lispro (HumaLOG) 20 units 1X ONCE SQ Last administered on 05/27/20at 17:32; Start 05/27/20 at 17:30; Stop 05/27/20 at 17:31; Status DC Methylprednisolone Sodium Succinate (SOLU-Medrol 40MG VIAL) 40 mg Q12HR IV Last administered on 05/30/20 08:34; Start 05/28/20 at 21:00; Stop 05/30/20 at 14:10; Status DC Amoxicillin/ Clavulanate Potassium (Augmentin 875/ 125mg) 1 tab BID PO Last administered on 05/31/20at 19:53; Start 05/28/20 at 21:00; Stop 05/31/20 at 21:01; Status DC Amlodipine Besylate (Norvasc) 2.5 mg DAILY PO Last administered on 06/02/20 08:03; Start 05/29/20 at 11:45 Furosemide (Lasix) 20 mg 1X ONCE PO Last administered on 05/29/20 12:40; Start 05/29/20 at 12:30; Stop 05/29/20 at 12:31; Status DC Potassium Chloride (Klor-Con) 20 meq 1X ONCE PO Last administered on 05/29/20at 12:40; Start 05/29/20 at 12:30; Stop 05/29/20 at 12:31; Status DC Insulin Glargine (Lantus Syringe) 25 unit BID SQ Last administered on 06/02/20at 08:12; Start 05/29/20 at 21:00 Furosemide (Lasix) 40 mg 1X ONCE IVP Last administered on 05/30/20at 11:47; Start 05/30/20 at 11:15; Stop 05/30/20 at 11:16; Status DC Iohexol (Omnipaque 350 Mg/ml) 100 ml 1X ONCE IV Last administered on 05/30/20at 12:00; Start 05/30/20 at 12:00; Stop 05/30/20 at 12:01; Status DC Info (CONTRAST GIVEN -- Rx MONITORING) 1 each PRN DAILY PRN MC SEE COMMENTS; Start 05/30/20 at 12:15; Stop 06/01/20 at 12:14; Status DC Sterile Water (WATER for RESP) 1,000 ml CONT PRN INH VIA VAPOTHERM DEVICE Last administered on 05/30/20at 22:34; Start 05/30/20 at 13:00 Methylprednisolone Sodium Succinate (SOLU-Medrol 125MG VIAL) 125 mg Q12HR IV Last administered on 06/02/20at 08:04; Start 05/30/20 at 14:15 Enoxaparin Sodium (Lovenox 40mg Syringe) 40 mg BID SQ Last administered on 06/02/20at 08:03; Start 06/01/20 at 21:00 Non-Formulary Medication 1 ea/ Sodium Chloride 210 ml @ 210 mls/hr 1X ONCE IV Last administered on 06/01/20at 17:11; Start 06/01/20 at 16:30; Stop 06/01/20 at 17:29; Status DC Non-Formulary Medication 1 ea/ Sodium Chloride 230 ml @ 460 mls/hr DAILY IV Last administered on 06/02/20at 08:11; Start 06/02/20 at 09:00; Stop 06/05/20 at 09:29 Active Scripts Active Reported Actos (Pioglitazone Hcl) 45 Mg Tablet 1 Tab PO DAILY 30 Days Diclofenac Sodium 75 Mg Tablet.dr 1 Tab PO BID Klor-Con 10 (Potassium Chloride) 10 Meq Tablet.er 1 Tab PO DAILY 30 Days Metformin Hcl 1,000 Mg Tablet 1,000 Mg PO BIDWMEALS Omeprazole 20 Mg Capsule. 1 Cap PO DAILY Lisinopril-Hctz 20-25 Mg Tab (Lisinopril/Hydrochlorothiazide) 1 Each Tablet 1 Tab PO DAILY Aspirin Ec (Aspirin) 81 Mg Tablet. 1 Tab PO DAILY Hydralazine Hcl 100 Mg Tablet 1 Tab PO BID Metoprolol Tartrate 50 Mg Tablet 1 Tab PO BID Rosuvastatin Calcium 10 Mg Tablet 10 Mg PO DAILY Vitals/I & O Vital Sign - Last 24 Hours 06/01/20 06/01/20 06/01/20 06/01/20 13:00 14:00 15:00 15:34 Pulse 47 52 49 Resp 25 26 24 B/P (MAP) 125/48 (73) 137/50 (79) 137/60 (85) Pulse Ox 98 100 99 98 O2 Delivery BiPAP/CPAP BiPAP/CPAP BiPAP/CPAP BiPAP/CPAP 06/01/20 06/01/20 06/01/20 06/01/20 16:00 16:00 17:00 18:00 Temp 98.1 98.1 Pulse 51 46 50 Resp 25 23 27 B/P (MAP) 132/46 (74) 120/51 (74) 106/58 (74) Pulse Ox 99 97 99 O2 Delivery Bi-pap BiPAP/CPAP BiPAP/CPAP BiPAP/CPAP 06/01/20 06/01/20 06/01/20 06/01/20 18:17 19:00 20:00 20:00 Temp 98.1 98.1 Pulse 48 56 Resp 25 25 B/P (MAP) 137/49 (78) 132/45 (74) Pulse Ox 100 99 98 O2 Delivery BiPAP/CPAP BiPAP/CPAP Bi-pap BiPAP/CPAP 06/01/20 06/01/20 06/01/20 06/01/20 20:01 21:00 21:01 21:03 Pulse 55 56 56 Resp 25 B/P (MAP) 128/43 (71) 132/45 132/45 Pulse Ox 98 99 O2 Delivery BiPAP/CPAP BiPAP/CPAP 06/01/20 06/01/20 06/01/20 06/01/20 22:00 23:00 23:48 23:58 Pulse 55 55 Resp 25 25 B/P (MAP) 138/50 (79) 131/46 (74) Pulse Ox 96 96 99 O2 Delivery BiPAP/CPAP BiPAP/CPAP BiPAP/CPAP Bi-pap 06/02/20 06/02/20 06/02/20 06/02/20 00:03 01:00 02:00 03:00 Temp 98.2 98.2 Pulse 57 55 53 61 Resp 25 25 25 25 B/P (MAP) 139/47 (77) 134/45 (74) 141/63 (89) 159/60 (93) Pulse Ox 94 97 97 100 O2 Delivery BiPAP/CPAP BiPAP/CPAP BiPAP/CPAP BiPAP/CPAP 06/02/20 06/02/20 06/02/20 06/02/20 03:52 03:59 04:00 05:00 Temp 98.1 98.1 Pulse 54 55 Resp 25 25 B/P (MAP) 127/40 (69) 134/52 (79) Pulse Ox 98 93 93 O2 Delivery BiPAP/CPAP Bi-pap BiPAP/CPAP BiPAP/CPAP 06/02/20 06/02/20 06/02/20 06/02/20 06:00 07:00 07:40 08:00 Temp 98.7 98.7 Pulse 59 58 52 Resp 25 28 26 B/P (MAP) 142/59 (86) 152/52 (85) 156/64 (94) Pulse Ox 96 96 97 93 O2 Delivery BiPAP/CPAP BiPAP/CPAP BiPAP/CPAP BiPAP/CPAP 06/02/20 06/02/20 06/02/20 06/02/20 08:00 08:03 08:03 08:06 Pulse 58 58 58 B/P (MAP) 152/52 152/52 152/52 O2 Delivery Bi-pap 06/02/20 06/02/20 06/02/20 06/02/20 08:06 09:00 10:00 11:00 Pulse 58 88 62 65 Resp 38 31 30 B/P (MAP) 152/52 149/50 (83) 133/49 (77) 139/47 (77) Pulse Ox 88 91 94 O2 Delivery High Flow Nasal Cannula Vapotherm Vapor therm 06/02/20 06/02/20 06/02/20 11:19 12:00 12:00 Temp 98.1 98.1 Pulse 91 Resp 26 B/P (MAP) 133/45 (74) Pulse Ox 93 91 O2 Delivery VAPOTHERM Nasal Cannula vapor therm O2 Flow Rate 40.0 Intake and Output 06/01/20 06/01/20 06/02/20 15:00 23:00 07:00 Intake Total 75 ml 50 ml 120 ml Output Total 250 ml 350 ml 475 ml Balance -175 ml -300 ml -355 ml Justicifation of Admission Dx: Justifications for Admission: Justification of Admission Dx: Yes Altered Mental Status: Altered Mental Status REZA RUST MD Jun 02, 2020 12:50
--- NOTE | 2020-06-02 13:50 | NUR ---
SS following up with discharge planning. SS reviewed pt chart and discussed with pt RN. Pt COVID19 positive and currently on Vapotherm. SS contacted pt's family via phone and discussed discharge planning and LTACH referral. Pt's family agreeable to LTACH referral at [facility], ; fax [phone]. SS phoned and faxed referral. SS will await acceptance decision and insurance determination and will proceed accordingly.
--- NOTE | 2020-06-02 16:13 | NUR ---
SS following up with discharge planning. [facility] contacted SS stating that they are out of network with pt's insurance plan and declined pt. SS contacted [facility] and [facility] and both facilities are checking with there administration to see if exception can be made to accept pt. They reported that normally pt would need to be in the hospital for fourteen days from testing positive prior to being accepted but are checking. Both facilities reported that they would contact SS once administration has made a determination. SS will continue to follow for discharge planning.
[2020-06-02] MEDS: ATORVASTATIN CALCIUM 40 MG TABLET. PO SCH (20:44)
[2020-06-03] VITALS (24 sets, daily range): BP systolic 121–169; BP diastolic 41–106
--- NOTE | 2020-06-03 07:42 | PDOC ---
Infectious Disease Note Subjective Subjective Increase SOA after using the commode then transferred to ICU Remains on BiPAP overnight but Vapotherm during the day No cough/F/C/aches/nausea Feels better Vital Sign Vital Signs Vital Signs Date Time Temp Pulse Resp B/P (MAP) Pulse Ox O2 Delivery O2 Flow Rate FiO2 06/03/20 07:21 67 30 140/51 (80) 94 BiPAP/CPAP 06/03/20 04:00 97.9 97.9 06/02/20 15:25 40.0 Physical Exam PHYSICAL EXAM GENERAL: Propped up in bed, alert, calm - appears comfortable HEENT: On BiPAP NECK: Supple. LUNGS: CTA HEART: S1, S2. regular ABDOMEN: Obese, soft, nontender : Galan in place EXTREMITIES: trace edema lower extremities bilaterally. No cyanosis DERMATOLOGIC: Warm, dry. No generalized rash. NEUROLOGIC: Alert, responds appropriately Labs Lab Laboratory Tests Test 06/02/20 07:40 06/02/20 16:30 06/02/20 17:39 06/02/20 21:18 O2 Saturation 90 % (92-99) Arterial Blood pH 7.47 (7.35-7.45) Arterial Blood pCO2 at Patient Temp 50 mmHg (35-46) Arterial Blood pO2 at Patient Temp 63 mmHg (65-108) Arterial Blood HCO3 36 mmol/L (21-28) Arterial Blood Base Excess 11 mmol/L (-3-3) FiO2 80 D-Dimer (Shu) 2.08 ug/mlFEU (0.00-0.50) Glucose (Fingerstick) 153 mg/dL (70-99) 144 mg/dL (70-99) Micro CT Scan 05/30Impression: 1. No evidence of pulmonary embolism. 2. Mild left effusion and moderate bilateral infiltrates right worse than left. This could be ARDS or pulmonary edema or atypical pneumonia. Microbiology 05/26/20 Gram Stain Evaluation - Final, Complete 05/26/20 Respiratory Culture - Final, Complete 05/24/20 Blood Culture - Final, Complete NO GROWTH AFTER 5 DAYS 05/18/20 Urine Culture - Final, Complete Objective Assessment COVID + 05/30 - COVID-19 negative on 05/18/2020 and 05/19/2020. Remdesivir started 06/01 Acute hypoxic respiratory failure - on Bipap Pneumonia. sputum cx: Resp gerri. Off vanc/Zosyn/doxy. Off Augmentin Fever - now resolved Leukocytosis, on steroids. CHF Hypoglycemic encephalopathy, resolved. Diabetes. Hypertension. Severe protein-calorie malnutrition. Gram-positive cocci bacteremia, 05/18/2020, 1 out of 2 bottles, ID MICROCOCCUS SPECIES, likely a contaminant. Plan Plan of Care Steroids/Remdesivir per pulm off abx Nystatin SWSW, 05/27 Maintain aspiration precautions Supportive care ID to sign off D/w nursing CHERRY MARCANO MD Jun 03, 2020 07:42
[2020-06-03] MEDS: INSULIN LISPRO 300 UNITS/3 ML VIAL. SQ SCH ×3 (08:00→17:00)
[2020-06-03] MEDS ORDERED: POTASSIUM CHLORIDE 20 MEQ TABLET.ER. PO ONE (08:00)
--- NOTE | 2020-06-03 08:01 | PDOC ---
PROGRESS NOTES Chief Complaint Chief Complaint Acute hypoxic respiratory failure secondary to multifocal infiltrate/pleural effusions Sepsis Hyperthyroidism likely Graves Dz Hypoglycemic encephalopathy, IMPROVING Severe protein-calorie malnutrition. DM2, HTN urinary retention, pain COVID + 05/30 - COVID-19 negative on 05/18/2020 and 05/19/2020. Remdesivir started 06/01 Pneumonia. sputum cx: Resp egrri. Off vanc/Zosyn/doxy. Off Augmentin CHF Severe protein-calorie malnutrition Gram-positive cocci bacteremia, 05/18/2020, 1 out of 2 bottles, ID MICROCOCCUS SPECIES, likely a contaminant. History of Present Illness History of Present Illness 05/30 transfer to ICU for hypoxia, urinary retention, maldonado placed, had been striaight cath, 06/01, still hypoxia, some dyspena, on bipap COVID was pos. Started on remdisivir 06/02: Increased shortness of breath. On BIPAP overnight, transitioned to vapotherm. No cough/F/C/aches/nausea. Feels better. Family contacting nursing staff frequently. Afebrile. Still with increased inflammatory markers. Overall feels better. Required Vapotherm during the day was on BiPAP overnight. Sodium up to 150 today, ABG 7.51/40 , placed back on BiPAP, no complaints except she is very tired. cc time 38 minutes Vitals Vitals Vital Signs Date Time Temp Pulse Resp B/P (MAP) Pulse Ox O2 Delivery O2 Flow Rate FiO2 06/03/20 07:31 91 BiPAP/CPAP 06/03/20 07:21 67 30 140/51 (80) 06/03/20 04:00 97.9 97.9 06/02/20 15:25 40.0 Physical Exam Physical Exam GENERAL: Propped up in bed, alert, calm - appears comfortable HEENT: On BiPAP NECK: Supple. LUNGS: CTA HEART: S1, S2. regular ABDOMEN: Obese, soft, nontender : Maldonado in place EXTREMITIES: trace edema lower extremities bilaterally. No cyanosis DERMATOLOGIC: Warm, dry. No generalized rash. NEUROLOGIC: Alert, responds appropriately General: Alert, Cooperative, No acute distress Heart: Regular rate, Normal S1, Normal S2, No murmurs Lungs: Clear Abdomen: Normal bowel sounds, Soft, No tenderness, No hepatosplenomegaly Labs LABS Laboratory Tests Test 06/02/20 16:30 7/8/20 17:39 06/02/20 21:18 D-Dimer (Shu) 2.08 ug/mlFEU (0.00-0.50) Glucose (Fingerstick) 153 mg/dL (70-99) 144 mg/dL (70-99) Assessment and Plan Assessmemt and Plan Problems Medical Problems: (1) Altered mental status Status: Acute (2) Hypoglycemia Status: Acute (3) Hypothermia Status: Acute Comment Review of Relevant I have reviewed the following items kavya (where applicable) has been applied. Labs Laboratory Tests Test 06/01/20 08:01 06/01/20 12:19 06/01/20 16:39 06/02/20 06:00 Glucose (Fingerstick) 180 mg/dL (70-99) 180 mg/dL (70-99) 104 mg/dL (70-99) Sodium Level 145 mmol/L (136-145) Potassium Level 3.4 mmol/L (3.5-5.1) Chloride Level 106 mmol/L (98-107) Carbon Dioxide Level 34 mmol/L (21-32) Anion Gap 5 (6-14) Blood Urea Nitrogen 32 mg/dL (7-20) Creatinine 1.0 mg/dL (0.6-1.0) Estimated GFR (Cockcroft-Gault) 55.1 BUN/Creatinine Ratio 32 (6-20) Glucose Level 186 mg/dL (70-99) Calcium Level 7.8 mg/dL (8.5-10.1) Total Bilirubin 0.3 mg/dL (0.2-1.0) Aspartate Amino Transf (AST/SGOT) 39 U/L (15-37) Alanine Aminotransferase (ALT/SGPT) 38 U/L (14-59) Alkaline Phosphatase 215 U/L (46-116) Lactate Dehydrogenase 531 U/L (81-234) C-Reactive Protein, Quantitative 22.8 mg/L (0-3.3) Total Protein 5.7 g/dL (6.4-8.2) Albumin 1.9 g/dL (3.4-5.0) Albumin/Globulin Ratio 0.5 (1.0-1.7) Test 06/02/20 07:40 06/02/20 16:30 06/02/20 17:39 06/02/20 21:18 O2 Saturation 90 % (92-99) Arterial Blood pH 7.47 (7.35-7.45) Arterial Blood pCO2 at Patient Temp 50 mmHg (35-46) Arterial Blood pO2 at Patient Temp 63 mmHg (65-108) Arterial Blood HCO3 36 mmol/L (21-28) Arterial Blood Base Excess 11 mmol/L (-3-3) FiO2 80 D-Dimer (Shu) 2.08 ug/mlFEU (0.00-0.50) Glucose (Fingerstick) 153 mg/dL (70-99) 144 mg/dL (70-99) Laboratory Tests Test 06/02/20 16:30 06/02/20 17:39 06/02/20 21:18 D-Dimer (Shu) 2.08 ug/mlFEU (0.00-0.50) Glucose (Fingerstick) 153 mg/dL (70-99) 144 mg/dL (70-99) Microbiology 05/26/20 Gram Stain Evaluation - Final, Complete 05/26/20 Respiratory Culture - Final, Complete 05/24/20 Blood Culture - Final, Complete NO GROWTH AFTER 5 DAYS 05/18/20 Urine Culture - Final, Complete Medications Current Medications Sodium Chloride 1,000 ml @ 1,000 mls/hr 1X ONCE IV Last administered on 05/18/20at 09:29; Start 05/18/20 at 09:15; Stop 05/18/20 at 10:14; Status DC Ceftriaxone Sodium (Rocephin) 1 gm 1X ONCE IVP Last administered on 05/18/20at 09:28; Start 05/18/20 at 09:15; Stop 05/18/20 at 09:16; Status DC Ondansetron HCl (Zofran) 4 mg PRN Q8HRS PRN IV NAUSEA/VOMITING; Start 05/18/20 at 10:15; Stop 05/18/20 at 16:24; Status DC Acetaminophen (Tylenol) 650 mg PRN Q4HRS PRN PO FEVER > 100.3'F; Start 05/18/20 at 10:15; Stop 05/18/20 at 16:24; Status DC Ceftriaxone Sodium (Rocephin) 1 gm Q24H IVP Last administered on 05/24/20at 09:09; Start 6/24/20 at 09:00; Stop 05/24/20 at 18:10; Status DC Sodium Chloride (Normal Saline Flush) 3 ml QSHIFT PRN IV AFTER MEDS AND BLOOD DRAWS; Start 05/18/20 at 16:30 Sodium Chloride 1,000 ml @ 85 mls/hr [id number] IV Last administered on 05/24/20at 18:31; Start 05/18/20 at 16:20; Stop 05/25/20 at 09:44; Status DC Ondansetron HCl (Zofran) 4 mg PRN Q4HRS PRN IV NAUSEA/VOMITING; Start 05/18/20 at 16:30 Acetaminophen (Tylenol) 650 mg PRN Q4HRS PRN PO TEMP OVER 100.4F OR MILD PAIN Last administered on 05/30/20at 20:09; Start 05/18/20 at 16:30 Acetaminophen (Tylenol Supp) 650 mg PRN Q4HRS PRN [place] TEMP OVER 100.4F OR MILD PAIN; Start 05/18/20 at 16:30 Sodium Monofluorophosphate (Fleet Adult) 133 ml PRN DAILY PRN [place] CONSTIPATION; Start 05/18/20 at 16:30 Docusate Sodium (Colace) 100 mg PRN BID PRN PO HARD STOOLS; Start 05/18/20 at 16:30 Albuterol Sulfate (Ventolin Neb Soln) 2.5 mg PRN Q4HRS PRN NEB SHORTNESS OF BREATH Last administered on 05/21/20at 18:14; Start 05/18/20 at 16:30; Stop 05/31/20 at 16:19; Status DC Guaifenesin (Robitussin) 200 mg PRN Q4HRS PRN PO COUGH Last administered on 05/23/20at 20:00; Start 05/18/20 at 16:30 Enoxaparin Sodium (Lovenox 40mg Syringe) 40 mg Q24H SQ Last administered on 05/31/20at 17:03; Start 05/18/20 at 17:00; Stop 06/01/20 at 10:27; Status DC Aspirin (Ecotrin) 81 mg DAILY PO Last administered on 06/02/20at 08:06; Start 05/19/20 at 09:00 Metoprolol Tartrate (Lopressor) 50 mg BID PO Last administered on 6/26/20at 09:16; Start 05/19/20 at 09:00; Stop 05/21/20 at 15:45; Status DC Diclofenac Sodium (Voltaren) 75 mg BID PO Last administered on 06/02/20 20:43; Start 05/19/20 at 10:00 Hydralazine HCl (Apresoline) 100 mg BID PO Last administered on 05/21/20 09:15; Start 05/19/20 at 09:00; Stop 05/21/20 at 15:45; Status DC Lisinopril (Prinivil) 20 mg DAILY PO Last administered on 05/21/20 09:16; Start 05/19/20 at 10:00; Stop 05/21/20 at 15:45; Status DC Pantoprazole Sodium (Protonix) 40 mg DAILYAC PO Last administered on 06/02/20 08:05; Start 05/19/20 at 10:00 Atorvastatin Calcium (Lipitor) 40 mg QHS PO Last administered on 06/02/20 20:44; Start 05/19/20 at 21:00 Hydrochlorothiazide (Hydrodiuril) 25 mg DAILY PO Last administered on 05/23/20 08:59; Start 05/19/20 at 10:00; Stop 05/23/20 at 10:22; Status DC Lactobacillus Rhamnosus (Culturelle) 1 cap BID PO Last administered on 06/02/20 20:43; Start 05/19/20 at 21:00 Insulin Human Lispro (HumaLOG) 0-7 UNITS TIDWMEALS SQ Last administered on 06/02/20 17:50; Start 05/19/20 at 17:00 Dextrose (Dextrose 50%-Water Syringe) 12.5 gm PRN Q15MIN PRN IV SEE COMMENTS; Start 05/19/20 at 14:15 Methimazole (Tapazole) 5 mg BID PO Last administered on 06/02/20 20:59; Start 05/20/20 at 10:00 Insulin Glargine (Lantus Syringe) 5 unit DAILY SQ Last administered on 05/22/20 09:15; Start 05/21/20 at 09:00; Stop 05/22/20 at 21:05; Status DC Doxycycline Hyclate (Vibra-Tab) 100 mg BID PO Last administered on 7/3/20at 08:53; Start 05/21/20 at 15:00; Stop 05/28/20 at 15:02; Status DC Furosemide (Lasix) 20 mg 1X ONCE IVP Last administered on 05/21/20at 17:05; Start 05/21/20 at 17:00; Stop 05/21/20 at 17:01; Status DC Sterile Water (WATER for RESP) 1,000 ml CONT PRN INH VIA VAPOTHERM DEVICE Last administered on 05/23/20at 16:26; Start 05/21/20 at 17:15; Stop 05/30/20 at 12:58; Status DC Albuterol Sulfate (Ventolin Neb Soln) 2.5 mg Q4HRS NEB Last administered on 05/30/20at 15:45; Start 05/21/20 at 20:00; Stop 05/31/20 at 16:19; Status DC Vancomycin HCl (Vanco Per Pharmacy) 1 each PRN DAILY PRN MC SEE COMMENTS Last administered on 05/25/20at 23:52; Start 05/22/20 at 09:00; Stop 05/27/20 at 16:29; Status DC Vancomycin HCl 2 gm/Sodium Chloride 500 ml @ 250 mls/hr 1X ONCE IV Last administered on 05/22/20at 09:05; Start 05/22/20 at 09:00; Stop 05/22/20 at 10:59; Status DC Vancomycin HCl 1.25 gm/Sodium Chloride 250 ml @ 167 mls/hr Q24H IV Last administered on 05/23/20at 09:00; Start 05/23/20 at 09:00; Stop 05/24/20 at 10:05; Status DC Vancomycin HCl (Vancomycin Trough Level) 1 each 1X ONCE MC Last administered on 05/24/20at 08:30; Start 05/24/20 at 08:30; Stop 05/24/20 at 08:31; Status DC Methylprednisolone Sodium Succinate (SOLU-Medrol 125MG VIAL) 80 mg Q8HRS IV Last administered on 05/27/20at 06:04; Start 05/22/20 at 14:00; Stop 05/27/20 at 12:02; Status DC Insulin Glargine (Lantus Syringe) 10 unit BID SQ Last administered on 05/23/20at 09:11; Start 05/22/20 at 21:00; Stop 05/23/20 at 20:17; Status DC Metoprolol Tartrate (Lopressor) 50 mg BID PO Last administered on 06/01/20at 21:03; Start 05/23/20 at 10:30 Hydrochlorothiazide (Microzide) 12.5 mg DAILY PO Last administered on 06/02/20at 08:04; Start 05/24/20 at 09:00 Potassium Chloride (Klor-Con) 40 meq Q2H PO Last administered on 05/23/20at 14:58; Start 05/23/20 at 10:30; Stop 05/23/20 at 14:31; Status DC Lisinopril (Prinivil) 40 mg DAILY PO Last administered on 06/01/20at 07:50; Start 05/23/20 at 10:30 Hydralazine HCl (Apresoline) 100 mg BID PO Last administered on 06/02/20at 20:42; Start 05/23/20 at 10:30 Insulin Glargine (Lantus Syringe) 10 unit BID SQ Last administered on 05/24/20at 09:14; Start 05/23/20 at 21:00; Stop 05/24/20 at 11:28; Status DC Vancomycin HCl 1.25 gm/Sodium Chloride 250 ml @ 167 mls/hr Q12H IV Last administered on 05/27/20 08:21; Start 05/24/20 at 10:30; Stop 05/27/20 at 16:26; Status DC Vancomycin HCl (Vancomycin Trough Level) 1 each 1X ONCE MC Last administered on 05/25/20at 22:00; Start 05/25/20 at 22:00; Stop 05/25/20 at 22:01; Status DC Insulin Glargine (Lantus Syringe) 12 unit BID SQ ; Start 05/24/20 at 21:00; Stop 05/24/20 at 17:27; Status DC Insulin Glargine (Lantus Syringe) 15 unit BID SQ Last administered on 05/25/20at 08:19; Start 05/24/20 at 21:00; Stop 05/25/20 at 09:47; Status DC Insulin Human Lispro (HumaLOG) 7 units 1X ONCE SQ Last administered on 05/24/20at 18:01; Start 05/24/20 at 17:30; Stop 05/24/20 at 17:31; Status DC Piperacillin Sod/ Tazobactam Sod 3.375 gm/Sodium Chloride 50 ml @ 100 mls/hr Q6HRS IV Last administered on 05/28/20at 12:09; Start 05/24/20 at 18:30; Stop 05/28/20 at 15:01; Status DC Insulin Human Lispro (HumaLOG) 11 units 1X SQ ; Start 05/24/20 at 21:30; Status Cancel Insulin Human Lispro (HumaLOG) 11 units 1X ONCE SQ Last administered on 05/24/20at 22:25; Start 05/24/20 at 22:00; Stop 05/24/20 at 22:01; Status DC Furosemide (Lasix) 20 mg 1X ONCE IVP Last administered on 05/25/20at 11:12; Start 05/25/20 at 10:00; Stop 05/25/20 at 10:01; Status DC Insulin Glargine (Lantus Syringe) 18 unit BID SQ Last administered on 05/27/20at 08:33; Start 05/25/20 at 21:00; Stop 05/27/20 at 12:00; Status DC Midazolam HCl (Versed) 2 mg 1X ONCE IV ; Start 05/25/20 at 10:30; Stop 05/25/20 at 10:31; Status Cancel Fentanyl Citrate (Fentanyl 2ml Vial) 50 mcg 1X ONCE IM ; Start 05/25/20 at 10:30; Stop 05/25/20 at 10:31; Status Cancel Hydralazine HCl (Apresoline Inj) 10 mg PRN Q4HRS PRN IVP ELEVATED BP, SEE COMMENTS Last administered on 05/29/20at 11:06; Start 05/25/20 at 16:15 Potassium Chloride (Klor-Con) 40 meq 1X ONCE PO Last administered on 05/26/20at 18:43; Start 05/26/20 at 18:30; Stop 05/26/20 at 18:31; Status DC Insulin Glargine (Lantus Syringe) 22 unit BID SQ Last administered on 05/29/20at 08:24; Start 05/27/20 at 21:00; Stop 05/29/20 at 12:14; Status DC Methylprednisolone Sodium Succinate (SOLU-Medrol 125MG VIAL) 40 mg Q12HR IV Last administered on 05/28/20 08:52; Start 05/27/20 at 19:00; Stop 05/28/20 at 13:37; Status DC Nystatin (Nystatin Oral Susp) 5 ml [id number] Last administered on 06/02/20at 20:43; Start 05/27/20 at 17:00 Insulin Human Lispro (HumaLOG) 20 units 1X ONCE SQ Last administered on 05/27/20 17:32; Start 05/27/20 at 17:30; Stop 05/27/20 at 17:31; Status DC Methylprednisolone Sodium Succinate (SOLU-Medrol 40MG VIAL) 40 mg Q12HR IV Last administered on 05/30/20 08:34; Start 05/28/20 at 21:00; Stop 05/30/20 at 14:10; Status DC Amoxicillin/ Clavulanate Potassium (Augmentin 875/ 125mg) 1 tab BID PO Last administered on 05/31/20 19:53; Start 05/28/20 at 21:00; Stop 05/31/20 at 21:01; Status DC Amlodipine Besylate (Norvasc) 2.5 mg DAILY PO Last administered on 06/02/20 08:03; Start 05/29/20 at 11:45 Furosemide (Lasix) 20 mg 1X ONCE PO Last administered on 05/29/20 12:40; Start 05/29/20 at 12:30; Stop 05/29/20 at 12:31; Status DC Potassium Chloride (Klor-Con) 20 meq 1X ONCE PO Last administered on 05/29/20at 12:40; Start 05/29/20 at 12:30; Stop 05/29/20 at 12:31; Status DC Insulin Glargine (Lantus Syringe) 25 unit BID SQ Last administered on 06/02/20 21:04; Start 05/29/20 at 21:00 Furosemide (Lasix) 40 mg 1X ONCE IVP Last administered on 05/30/20at 11:47; Start 05/30/20 at 11:15; Stop 05/30/20 at 11:16; Status DC Iohexol (Omnipaque 350 Mg/ml) 100 ml 1X ONCE IV Last administered on 05/30/20at 12:00; Start 05/30/20 at 12:00; Stop 05/30/20 at 12:01; Status DC Info (CONTRAST GIVEN -- Rx MONITORING) 1 each PRN DAILY PRN MC SEE COMMENTS; Start 05/30/20 at 12:15; Stop 06/01/20 at 12:14; Status DC Sterile Water (WATER for RESP) 1,000 ml CONT PRN INH VIA VAPOTHERM DEVICE Last administered on 05/30/20at 22:34; Start 05/30/20 at 13:00 Methylprednisolone Sodium Succinate (SOLU-Medrol 125MG VIAL) 125 mg Q12HR IV Last administered on 06/02/20at 20:43; Start 05/30/20 at 14:15 Enoxaparin Sodium (Lovenox 40mg Syringe) 40 mg BID SQ Last administered on 06/02/20at 20:41; Start 06/01/20 at 21:00 Non-Formulary Medication 1 ea/ Sodium Chloride 210 ml @ 210 mls/hr 1X ONCE IV Last administered on 06/01/20at 17:11; Start 06/01/20 at 16:30; Stop 06/01/20 at 17:29; Status DC Non-Formulary Medication 1 ea/ Sodium Chloride 230 ml @ 460 mls/hr DAILY IV Last administered on 06/02/20at 08:11; Start 06/02/20 at 09:00; Stop 06/05/20 at 09:29 Active Scripts Active Reported Actos (Pioglitazone Hcl) 45 Mg Tablet 1 Tab PO DAILY 30 Days Diclofenac Sodium 75 Mg Tablet. 1 Tab PO BID Klor-Con 10 (Potassium Chloride) 10 Meq Tablet.er 1 Tab PO DAILY 30 Days Metformin Hcl 1,000 Mg Tablet 1,000 Mg PO BIDWMEALS Omeprazole 20 Mg Capsule. 1 Cap PO DAILY Lisinopril-Hctz 20-25 Mg Tab (Lisinopril/Hydrochlorothiazide) 1 Each Tablet 1 Tab PO DAILY Aspirin Ec (Aspirin) 81 Mg Tablet. 1 Tab PO DAILY Hydralazine Hcl 100 Mg Tablet 1 Tab PO BID Metoprolol Tartrate 50 Mg Tablet 1 Tab PO BID Rosuvastatin Calcium 10 Mg Tablet 10 Mg PO DAILY Vitals/I & O Vital Sign - Last 24 Hours 06/02/20 06/02/20 06/02/20 06/02/20 08:03 08:03 08:06 08:06 Pulse 58 58 58 58 B/P (MAP) 152/52 152/52 152/52 152/52 06/02/20 06/02/20 06/02/20 06/02/20 09:00 10:00 11:00 11:19 Pulse 88 62 65 Resp 38 31 30 B/P (MAP) 149/50 (83) 133/49 (77) 139/47 (77) Pulse Ox 88 91 94 93 O2 Delivery High Flow Nasal Cannula Vapotherm Vapor therm VAPOTHERM O2 Flow Rate 40.0 06/02/20 06/02/20 06/02/20 06/02/20 12:00 12:00 13:00 14:00 Temp 98.1 98.1 Pulse 91 95 62 Resp 26 24 35 B/P (MAP) 133/45 (74) 125/49 (74) 145/47 (79) Pulse Ox 91 86 88 O2 Delivery Nasal Cannula vapor therm vapor therm vapor therm 06/02/20 06/02/20 06/02/20 06/02/20 15:00 15:25 16:00 16:00 Temp 98.8 98.8 Pulse 70 71 Resp 23 30 B/P (MAP) 124/59 (80) 139/48 (78) Pulse Ox 86 94 92 O2 Delivery vapor therm VAPOTHERM Nasal Cannula BiPAP/CPAP O2 Flow Rate 40.0 06/02/20 06/02/20 06/02/20 06/02/20 17:00 18:00 19:00 20:00 Pulse 59 51 58 Resp 33 31 27 B/P (MAP) 139/48 (78) 153/59 (90) 141/78 (99) Pulse Ox 93 91 93 O2 Delivery BiPAP/CPAP vapor therm BiPAP/CPAP Bi-pap 06/02/20 06/02/20 06/02/20 06/02/20 20:00 20:15 20:42 20:44 Temp 98.2 98.2 Pulse 62 51 51 Resp 32 B/P (MAP) 148/58 (88) 148/50 148/50 Pulse Ox 93 99 O2 Delivery BiPAP/CPAP BiPAP/CPAP 06/02/20 06/02/20 06/02/20 06/02/20 21:00 22:00 22:15 23:00 Pulse 71 68 63 Resp 30 34 31 B/P (MAP) 154/49 (84) 135/49 (77) 156/54 (88) Pulse Ox 91 86 96 97 O2 Delivery BiPAP/CPAP BiPAP/CPAP BiPAP/CPAP BiPAP/CPAP 06/03/20 06/03/20 06/03/20 06/03/20 00:00 00:00 00:15 01:00 Temp 98.2 98.2 Pulse 58 56 Resp 30 24 B/P (MAP) 155/49 (84) 150/49 (82) Pulse Ox 95 100 95 O2 Delivery BiPAP/CPAP Bi-pap BiPAP/CPAP BiPAP/CPAP 06/03/20 06/03/20 06/03/20 06/03/20 02:00 03:00 04:00 04:00 Temp 97.9 97.9 Pulse 54 51 63 Resp 49 26 30 B/P (MAP) 142/49 (80) 149/46 (80) 152/49 (83) Pulse Ox 96 95 95 O2 Delivery BiPAP/CPAP BiPAP/CPAP Bi-pap BiPAP/CPAP 06/03/20 06/03/20 06/03/20 06/03/20 04:28 05:00 06:05 07:21 Pulse 61 57 67 Resp 24 22 30 B/P (MAP) 143/51 (81) 153/50 (84) 140/51 (80) Pulse Ox 98 94 91 94 O2 Delivery BiPAP/CPAP BiPAP/CPAP BiPAP/CPAP BiPAP/CPAP 06/03/20 07:31 Pulse Ox 91 O2 Delivery BiPAP/CPAP Intake and Output 06/02/20 06/02/20 06/03/20 15:00 23:00 07:00 Intake Total 350 ml Output Total 450 ml 250 ml 400 ml Balance -450 ml 100 ml -400 ml Justicifation of Admission Dx: Justifications for Admission: Justification of Admission Dx: Yes Altered Mental Status: Altered Mental Status REZA RUST MD Jun 03, 2020 08:01
[2020-06-03 08:19] LABS: BASO % 0 % (0-3); EOS % 0 % (0-3); HEMATOCRIT 28.8 % (36.0-47.0); HEMOGLOBIN 9.4 g/dL (12.0-15.5); LYMPH # 0.3 x10^3/uL (1.0-4.8); LYMPH % 2 % (24-48); MEAN CORPUSCULAR HEMOGLOBIN 27 pg (25-35); MEAN CORPUSCULAR HGB CONC 33 g/dL (31-37); MEAN CORPUSCULAR VOLUME 83 fL (79-100); MONO # 0.6 x10^3/uL (0.0-1.1); MONO % 5 % (0-9); NEUT # 11.3 x10^3/uL (1.8-7.7); NEUT % 93 % (31-73); PLATELET COUNT 284 x10^3/uL (140-400); RED BLOOD COUNT 3.46 x10^6/uL (3.50-5.40); RED CELL DISTRIBUTION WIDTH 17.5 % (11.5-14.5); WHITE BLOOD COUNT 12.2 x10^3/uL (4.0-11.0)
[2020-06-03 08:33] LABS: ALBUMIN/GLOBULIN RATIO 0.5 (1.0-1.7); CALCIUM 7.8 mg/dL (8.5-10.1); CREATININE 0.7 mg/dL (0.6-1.0); GFR 83.2; POTASSIUM 3.4 mmol/L (3.5-5.1); TOTAL BILIRUBIN 0.3 mg/dL (0.2-1.0); TOTAL PROTEIN 5.8 g/dL (6.4-8.2)
[2020-06-03 08:38] LABS: MAGNESIUM 2.1 mg/dL (1.8-2.4); PHOSPHORUS 3.3 mg/dL (2.6-4.7)
--- NOTE | 2020-06-03 08:40 | PDOC ---
PULMONARY PROGRESS NOTES Subjective Currently on BiPAP, asking to be fed Vitals Vital Signs Date Time Temp Pulse Resp B/P (MAP) Pulse Ox O2 Delivery O2 Flow Rate FiO2 06/03/20 07:31 91 BiPAP/CPAP 06/03/20 07:21 67 30 140/51 (80) 06/03/20 04:00 97.9 97.9 06/02/20 15:25 40.0 ROS: No Nausea, No Chest Pain, No Abdominal Pain General: Alert, Oriented X4 Lungs: Clear Cardiovascular: S1, S2 Abdomen: Soft Neuro Exam: Alert Extremities: Other (+2 BLE ) Skin: Warm Labs Laboratory Tests Test 06/01/20 12:19 06/01/20 16:39 06/02/20 06:00 06/02/20 07:40 Glucose (Fingerstick) 180 mg/dL (70-99) 104 mg/dL (70-99) Sodium Level 145 mmol/L (136-145) Potassium Level 3.4 mmol/L (3.5-5.1) Chloride Level 106 mmol/L (98-107) Carbon Dioxide Level 34 mmol/L (21-32) Anion Gap 5 (6-14) Blood Urea Nitrogen 32 mg/dL (7-20) Creatinine 1.0 mg/dL (0.6-1.0) Estimated GFR (Cockcroft-Gault) 55.1 BUN/Creatinine Ratio 32 (6-20) Glucose Level 186 mg/dL (70-99) Calcium Level 7.8 mg/dL (8.5-10.1) Total Bilirubin 0.3 mg/dL (0.2-1.0) Aspartate Amino Transf (AST/SGOT) 39 U/L (15-37) Alanine Aminotransferase (ALT/SGPT) 38 U/L (14-59) Alkaline Phosphatase 215 U/L (46-116) Lactate Dehydrogenase 531 U/L (81-234) C-Reactive Protein, Quantitative 22.8 mg/L (0-3.3) Total Protein 5.7 g/dL (6.4-8.2) Albumin 1.9 g/dL (3.4-5.0) Albumin/Globulin Ratio 0.5 (1.0-1.7) O2 Saturation 90 % (92-99) Arterial Blood pH 7.47 (7.35-7.45) Arterial Blood pCO2 at Patient Temp 50 mmHg (35-46) Arterial Blood pO2 at Patient Temp 63 mmHg (65-108) Arterial Blood HCO3 36 mmol/L (21-28) Arterial Blood Base Excess 11 mmol/L (-3-3) FiO2 80 Test 06/02/20 16:30 06/02/20 17:39 06/02/20 21:18 06/03/20 08:10 D-Dimer (Shu) 2.08 ug/mlFEU (0.00-0.50) Glucose (Fingerstick) 153 mg/dL (70-99) 144 mg/dL (70-99) White Blood Count 12.2 x10^3/uL (4.0-11.0) Red Blood Count 3.46 x10^6/uL (3.50-5.40) Hemoglobin 9.4 g/dL (12.0-15.5) Hematocrit 28.8 % (36.0-47.0) Mean Corpuscular Volume 83 fL (79-100) Mean Corpuscular Hemoglobin 27 pg (25-35) Mean Corpuscular Hemoglobin Concent 33 g/dL (31-37) Red Cell Distribution Width 17.5 % (11.5-14.5) Platelet Count 284 x10^3/uL (140-400) Neutrophils (%) (Auto) 93 % (31-73) Lymphocytes (%) (Auto) 2 % (24-48) Monocytes (%) (Auto) 5 % (0-9) Eosinophils (%) (Auto) 0 % (0-3) Basophils (%) (Auto) 0 % (0-3) Neutrophils # (Auto) 11.3 x10^3/uL (1.8-7.7) Lymphocytes # (Auto) 0.3 x10^3/uL (1.0-4.8) Monocytes # (Auto) 0.6 x10^3/uL (0.0-1.1) Eosinophils # (Auto) 0.0 x10^3/uL (0.0-0.7) Basophils # (Auto) 0.0 x10^3/uL (0.0-0.2) Sodium Level 150 mmol/L (136-145) Potassium Level 3.4 mmol/L (3.5-5.1) Chloride Level 107 mmol/L (98-107) Carbon Dioxide Level 35 mmol/L (21-32) Anion Gap 8 (6-14) Blood Urea Nitrogen 32 mg/dL (7-20) Creatinine 0.7 mg/dL (0.6-1.0) Estimated GFR (Cockcroft-Gault) 83.2 BUN/Creatinine Ratio 46 (6-20) Glucose Level 76 mg/dL (70-99) Calcium Level 7.8 mg/dL (8.5-10.1) Phosphorus Level 3.3 mg/dL (2.6-4.7) Magnesium Level 2.1 mg/dL (1.8-2.4) Total Bilirubin 0.3 mg/dL (0.2-1.0) Aspartate Amino Transf (AST/SGOT) 39 U/L (15-37) Alanine Aminotransferase (ALT/SGPT) 36 U/L (14-59) Alkaline Phosphatase 199 U/L (46-116) Total Protein 5.8 g/dL (6.4-8.2) Albumin 2.0 g/dL (3.4-5.0) Albumin/Globulin Ratio 0.5 (1.0-1.7) Laboratory Tests Test 06/02/20 16:30 06/02/20 17:39 06/02/20 21:18 06/03/20 08:10 D-Dimer (Shu) 2.08 ug/mlFEU (0.00-0.50) Glucose (Fingerstick) 153 mg/dL (70-99) 144 mg/dL (70-99) White Blood Count 12.2 x10^3/uL (4.0-11.0) Red Blood Count 3.46 x10^6/uL (3.50-5.40) Hemoglobin 9.4 g/dL (12.0-15.5) Hematocrit 28.8 % (36.0-47.0) Mean Corpuscular Volume 83 fL (79-100) Mean Corpuscular Hemoglobin 27 pg (25-35) Mean Corpuscular Hemoglobin Concent 33 g/dL (31-37) Red Cell Distribution Width 17.5 % (11.5-14.5) Platelet Count 284 x10^3/uL (140-400) Neutrophils (%) (Auto) 93 % (31-73) Lymphocytes (%) (Auto) 2 % (24-48) Monocytes (%) (Auto) 5 % (0-9) Eosinophils (%) (Auto) 0 % (0-3) Basophils (%) (Auto) 0 % (0-3) Neutrophils # (Auto) 11.3 x10^3/uL (1.8-7.7) Lymphocytes # (Auto) 0.3 x10^3/uL (1.0-4.8) Monocytes # (Auto) 0.6 x10^3/uL (0.0-1.1) Eosinophils # (Auto) 0.0 x10^3/uL (0.0-0.7) Basophils # (Auto) 0.0 x10^3/uL (0.0-0.2) Sodium Level 150 mmol/L (136-145) Potassium Level 3.4 mmol/L (3.5-5.1) Chloride Level 107 mmol/L (98-107) Carbon Dioxide Level 35 mmol/L (21-32) Anion Gap 8 (6-14) Blood Urea Nitrogen 32 mg/dL (7-20) Creatinine 0.7 mg/dL (0.6-1.0) Estimated GFR (Cockcroft-Gault) 83.2 BUN/Creatinine Ratio 46 (6-20) Glucose Level 76 mg/dL (70-99) Calcium Level 7.8 mg/dL (8.5-10.1) Phosphorus Level 3.3 mg/dL (2.6-4.7) Magnesium Level 2.1 mg/dL (1.8-2.4) Total Bilirubin 0.3 mg/dL (0.2-1.0) Aspartate Amino Transf (AST/SGOT) 39 U/L (15-37) Alanine Aminotransferase (ALT/SGPT) 36 U/L (14-59) Alkaline Phosphatase 199 U/L (46-116) Total Protein 5.8 g/dL (6.4-8.2) Albumin 2.0 g/dL (3.4-5.0) Albumin/Globulin Ratio 0.5 (1.0-1.7) Medications Active Scripts Medications Dose Route/Sig Max Daily Dose Days Date Category Actos (Pioglitazone Hcl) 45 Mg Tablet 1 Tab PO DAILY 30 05/18/20 Reported Diclofenac Sodium 75 Mg Tablet.dr 1 Tab PO BID 05/18/20 Reported Klor-Con 10 (Potassium Chloride) 10 Meq Tablet.er 1 Tab PO DAILY 30 05/18/20 Reported Metformin Hcl 1,000 Mg Tablet 1,000 Mg PO BIDWMEALS 05/18/20 Reported Omeprazole 20 Mg Capsule.dr 1 Cap PO DAILY 05/18/20 Reported Lisinopril-Hctz 20-25 Mg Tab (Lisinopril/Hydrochlorothiazide) 1 Each Tablet 1 Tab PO DAILY 05/18/20 Reported Aspirin Ec (Aspirin) 81 Mg Tablet.dr 1 Tab PO DAILY 05/18/20 Reported Hydralazine Hcl 100 Mg Tablet 1 Tab PO BID 05/18/20 Reported Metoprolol Tartrate 50 Mg Tablet 1 Tab PO BID 05/18/20 Reported Rosuvastatin Calcium 10 Mg Tablet 10 Mg PO DAILY 05/18/20 Reported Comments CXR : Impression: Moderate bilateral infiltrates could be secondary to atypical pneumonia or CHF. This appears similar to the prior study although there is improved aeration of the left lung base. Impression . IMPRESSION: 1. Acute hypoxic respiratory failure--worsening now on BIPAP 2. Abnormal chest x-ray/ARDS 3. Fever, resolved 4. Hypoglycemic encephalopathy, resolved. 5. Severe protein-calorie malnutrition. 6. Mild azotemia. 7. SARS-CoV-2 negative x2, May 18, May 19 8. Negative blood cultures 9. Possible Boop 10. Negative CT angiogram for PE 11. Acute lung injury 11. SARS-CoV-2 positive on 05/31/COVID-19 Impression: 1. No evidence of pulmonary embolism. 2. Mild left effusion and moderate bilateral infiltrates right worse than left. This could be ARDS or pulmonary edema or atypical pneumonia. Plan . D-dimer noted, continue Lovenox twice daily Continue antiviral, continue antiviral Start oral feeding SARS COVID 2, reported positive from 05/31, considering current patients status, will initiate Remdesivir Discussed with daughter on the phone, 05/31 answer the whole of her questions, informed her that she had acute lung injury which will improve with time and support with steroids and oxygen Increase steroid, I do not think she needs additional antibiotics ABG noted Diuresis ABX per ID DM per IM HTN per IM PT/OT D/W RN and RT KING WHITTINGTON MD Jun 03, 2020 08:40
[2020-06-03 09:02] LABS: BASE EXCESS ABG 12 mmol/L (-3-3); HCO3 ABG 36 mmol/L (21-28); PCO2 ABG 47 mmHg (35-46); PO2 ABG 54 mmHg (65-108); SAT O2 ABG 87 % (92-99)
[2020-06-03 09:03] LABS: FIO2 ABG 70%
--- NOTE | 2020-06-03 09:37 | NUR ---
SS following up with discharge planning. SS reviewed pt chart and discussed with RN, Teagan. Pt is COVID19 positive and on BIPAP and Vapotherm. SS received phone call from Gopi in the [facility] stating that they could accept pt but could not admit pt until nine days from the positive test (06/08/2020). SS received phone call from [facility], ; fax [phone], stating that administration gave approval and they could accept pt pending insurance authorization. SS phoned and faxed clinical to [facility]. [facility] submitting for insurance authorization today. SS will continue to follow for discharge planning.
[2020-06-03] MEDS: NON FORMULARY ITEM 1 EA in IV NORMAL SALINE 250ML 230 ML IV SCH (09:49)
[2020-06-03] MEDS: DICLOFENAC SODIUM 25 MG TABLET.DR PO SCH ×2 (09:50→20:29)
[2020-06-03] MEDS: NYSTATIN 100,000 UNITS/ML 5 ML ORAL.SUSP. SWSW SCH ×4 (09:50→20:43)
[2020-06-03] MEDS: ENOXAPARIN 40 MG/0.4 ML SYRINGE. SQ SCH ×2 (09:50→20:39)
[2020-06-03] MEDS: methylPREDNISolone SOD SUCC PF 125 MG/2 ML VIAL. IV SCH ×2 (09:51→20:30)
[2020-06-03] MEDS: LACTOBACILLUS RHAMNOSUS GG 1 CAPSULE. PO SCH ×2 (09:53→20:38)
[2020-06-03] MEDS: ASPIRIN ENTERIC COATED 81 MG TABLET.DR. PO SCH (09:53)
[2020-06-03] MEDS: amLODIPine BESYLATE 5 MG TABLET PO SCH (09:55)
[2020-06-03] MEDS: LISINOPRIL 20 MG TABLET PO SCH (09:55)
[2020-06-03] MEDS: hydroCHLOROthiazide 12.5 MG CAPSULE PO SCH (09:56)
[2020-06-03] MEDS: methIMAzole 10 MG TABLET PO SCH ×2 (09:56→20:39)
[2020-06-03] MEDS: PANTOPRAZOLE 40 MG TABLET.DR. PO SCH (09:56)
[2020-06-03] MEDS: INSULIN GLARGINE SYRINGE. SQ SCH ×2 (09:57→20:45)
[2020-06-03] MEDS: METOPROLOL TART IMMED RELEASE 50 MG TABLET. PO SCH ×2 (10:01→20:29)
[2020-06-03] MEDS: ATORVASTATIN CALCIUM 40 MG TABLET. PO SCH (20:38)
[2020-06-04] VITALS (25 sets, daily range): BP systolic 123–168; BP diastolic 48–92
[2020-06-04 05:16] LABS: BASO % 0 % (0-3); EOS % 0 % (0-3); HEMATOCRIT 29.8 % (36.0-47.0); HEMOGLOBIN 9.7 g/dL (12.0-15.5); LYMPH # 0.4 x10^3/uL (1.0-4.8); LYMPH % 3 % (24-48); MEAN CORPUSCULAR HEMOGLOBIN 27 pg (25-35); MEAN CORPUSCULAR HGB CONC 33 g/dL (31-37); MEAN CORPUSCULAR VOLUME 83 fL (79-100); MONO # 0.8 x10^3/uL (0.0-1.1); MONO % 5 % (0-9); NEUT # 15.2 x10^3/uL (1.8-7.7); NEUT % 92 % (31-73); PLATELET COUNT 325 x10^3/uL (140-400); RED BLOOD COUNT 3.57 x10^6/uL (3.50-5.40); RED CELL DISTRIBUTION WIDTH 17.9 % (11.5-14.5); WHITE BLOOD COUNT 16.4 x10^3/uL (4.0-11.0)
[2020-06-04 06:26] LABS: CALCIUM 7.9 mg/dL (8.5-10.1); CREATININE 0.7 mg/dL (0.6-1.0); GFR 83.2; POTASSIUM 3.9 mmol/L (3.5-5.1)
--- NOTE | 2020-06-04 07:05 | NUR ---
Morning lab glucose of 40 called to this RN. Glucose fingerstick completed and was 38. Patient still AOX4, showcasing no symptoms of hypoglycemia. Whole amp of dextrose given per emar instructions. Glucose rechecked in 5 mins was 199.
[2020-06-04] MEDS: NON FORMULARY ITEM 1 EA in IV NORMAL SALINE 250ML 230 ML IV SCH (07:57)
[2020-06-04] MEDS: LACTOBACILLUS RHAMNOSUS GG 1 CAPSULE. PO SCH ×2 (07:58→21:11)
[2020-06-04] MEDS: ASPIRIN ENTERIC COATED 81 MG TABLET.DR. PO SCH (07:58)
[2020-06-04] MEDS: INSULIN GLARGINE SYRINGE. SQ SCH (07:58)
[2020-06-04] MEDS: NYSTATIN 100,000 UNITS/ML 5 ML ORAL.SUSP. SWSW SCH ×4 (08:00→21:11)
[2020-06-04] MEDS: INSULIN LISPRO 300 UNITS/3 ML VIAL. SQ SCH ×3 (08:00→17:00)
[2020-06-04] MEDS: methIMAzole 10 MG TABLET PO SCH ×2 (08:00→21:11)
[2020-06-04] MEDS: methylPREDNISolone SOD SUCC PF 125 MG/2 ML VIAL. IV SCH ×2 (08:01→21:16)
[2020-06-04] MEDS: LISINOPRIL 20 MG TABLET PO SCH ×2 (08:02→12:29)
[2020-06-04] MEDS: PANTOPRAZOLE 40 MG TABLET.DR. PO SCH (08:03)
[2020-06-04] MEDS ORDERED: DICLOFENAC SODIUM 25 MG TABLET.DR PO SCH (08:03)
[2020-06-04] MEDS: amLODIPine BESYLATE 5 MG TABLET PO SCH ×2 (08:05→12:30)
[2020-06-04] MEDS: ENOXAPARIN 40 MG/0.4 ML SYRINGE. SQ SCH ×2 (08:07→21:12)
[2020-06-04] MEDS: DICLOFENAC SODIUM 25 MG TABLET.DR PO SCH ×2 (08:10→21:00)
--- NOTE | 2020-06-04 08:37 | PDOC ---
PULMONARY PROGRESS NOTES Subjective Patient off of BiPAP no respiratory complain Vitals Vital Signs Date Time Temp Pulse Resp B/P (MAP) Pulse Ox O2 Delivery O2 Flow Rate FiO2 06/04/20 07:51 99 BiPAP/CPAP 06/04/20 07:24 45 23 135/58 (83) 06/04/20 04:00 40.0 06/04/20 04:00 97.1 97.1 ROS: No Nausea, No Chest Pain, No Abdominal Pain General: Alert, Oriented X4 Lungs: Clear Cardiovascular: S1, S2 Abdomen: Soft Neuro Exam: Alert Extremities: Other (+2 BLE ) Skin: Warm Labs Laboratory Tests Test 06/02/20 16:30 06/02/20 17:39 06/02/20 21:18 06/03/20 07:35 D-Dimer (Shu) 2.08 ug/mlFEU (0.00-0.50) Glucose (Fingerstick) 153 mg/dL (70-99) 144 mg/dL (70-99) O2 Saturation 87 % (92-99) Arterial Blood pH 7.51 (7.35-7.45) Arterial Blood pCO2 at Patient Temp 47 mmHg (35-46) Arterial Blood pO2 at Patient Temp 54 mmHg (65-108) Arterial Blood HCO3 36 mmol/L (21-28) Arterial Blood Base Excess 12 mmol/L (-3-3) FiO2 70% Test 06/03/20 08:10 06/03/20 17:43 06/03/20 20:25 06/04/20 05:00 White Blood Count 12.2 x10^3/uL (4.0-11.0) 16.4 x10^3/uL (4.0-11.0) Red Blood Count 3.46 x10^6/uL (3.50-5.40) 3.57 x10^6/uL (3.50-5.40) Hemoglobin 9.4 g/dL (12.0-15.5) 9.7 g/dL (12.0-15.5) Hematocrit 28.8 % (36.0-47.0) 29.8 % (36.0-47.0) Mean Corpuscular Volume 83 fL (79-100) 83 fL (79-100) Mean Corpuscular Hemoglobin 27 pg (25-35) 27 pg (25-35) Mean Corpuscular Hemoglobin Concent 33 g/dL (31-37) 33 g/dL (31-37) Red Cell Distribution Width 17.5 % (11.5-14.5) 17.9 % (11.5-14.5) Platelet Count 284 x10^3/uL (140-400) 325 x10^3/uL (140-400) Neutrophils (%) (Auto) 93 % (31-73) 92 % (31-73) Lymphocytes (%) (Auto) 2 % (24-48) 3 % (24-48) Monocytes (%) (Auto) 5 % (0-9) 5 % (0-9) Eosinophils (%) (Auto) 0 % (0-3) 0 % (0-3) Basophils (%) (Auto) 0 % (0-3) 0 % (0-3) Neutrophils # (Auto) 11.3 x10^3/uL (1.8-7.7) 15.2 x10^3/uL (1.8-7.7) Lymphocytes # (Auto) 0.3 x10^3/uL (1.0-4.8) 0.4 x10^3/uL (1.0-4.8) Monocytes # (Auto) 0.6 x10^3/uL (0.0-1.1) 0.8 x10^3/uL (0.0-1.1) Eosinophils # (Auto) 0.0 x10^3/uL (0.0-0.7) 0.0 x10^3/uL (0.0-0.7) Basophils # (Auto) 0.0 x10^3/uL (0.0-0.2) 0.0 x10^3/uL (0.0-0.2) Sodium Level 150 mmol/L (136-145) 147 mmol/L (136-145) Potassium Level 3.4 mmol/L (3.5-5.1) 3.9 mmol/L (3.5-5.1) Chloride Level 107 mmol/L (98-107) 108 mmol/L (98-107) Carbon Dioxide Level 35 mmol/L (21-32) 29 mmol/L (21-32) Anion Gap 8 (6-14) 10 (6-14) Blood Urea Nitrogen 32 mg/dL (7-20) 31 mg/dL (7-20) Creatinine 0.7 mg/dL (0.6-1.0) 0.7 mg/dL (0.6-1.0) Estimated GFR (Cockcroft-Gault) 83.2 83.2 BUN/Creatinine Ratio 46 (6-20) Glucose Level 76 mg/dL (70-99) 40 mg/dL (70-99) Calcium Level 7.8 mg/dL (8.5-10.1) 7.9 mg/dL (8.5-10.1) Phosphorus Level 3.3 mg/dL (2.6-4.7) Magnesium Level 2.1 mg/dL (1.8-2.4) Total Bilirubin 0.3 mg/dL (0.2-1.0) Aspartate Amino Transf (AST/SGOT) 39 U/L (15-37) Alanine Aminotransferase (ALT/SGPT) 36 U/L (14-59) Alkaline Phosphatase 199 U/L (46-116) Total Protein 5.8 g/dL (6.4-8.2) Albumin 2.0 g/dL (3.4-5.0) Albumin/Globulin Ratio 0.5 (1.0-1.7) Glucose (Fingerstick) 118 mg/dL (70-99) 159 mg/dL (70-99) Test 06/04/20 06:46 06/04/20 06:59 Glucose (Fingerstick) 38 mg/dL (70-99) 199 mg/dL (70-99) Laboratory Tests Test 06/03/20 17:43 06/03/20 20:25 06/04/20 05:00 06/04/20 06:46 Glucose (Fingerstick) 118 mg/dL (70-99) 159 mg/dL (70-99) 38 mg/dL (70-99) White Blood Count 16.4 x10^3/uL (4.0-11.0) Red Blood Count 3.57 x10^6/uL (3.50-5.40) Hemoglobin 9.7 g/dL (12.0-15.5) Hematocrit 29.8 % (36.0-47.0) Mean Corpuscular Volume 83 fL (79-100) Mean Corpuscular Hemoglobin 27 pg (25-35) Mean Corpuscular Hemoglobin Concent 33 g/dL (31-37) Red Cell Distribution Width 17.9 % (11.5-14.5) Platelet Count 325 x10^3/uL (140-400) Neutrophils (%) (Auto) 92 % (31-73) Lymphocytes (%) (Auto) 3 % (24-48) Monocytes (%) (Auto) 5 % (0-9) Eosinophils (%) (Auto) 0 % (0-3) Basophils (%) (Auto) 0 % (0-3) Neutrophils # (Auto) 15.2 x10^3/uL (1.8-7.7) Lymphocytes # (Auto) 0.4 x10^3/uL (1.0-4.8) Monocytes # (Auto) 0.8 x10^3/uL (0.0-1.1) Eosinophils # (Auto) 0.0 x10^3/uL (0.0-0.7) Basophils # (Auto) 0.0 x10^3/uL (0.0-0.2) Sodium Level 147 mmol/L (136-145) Potassium Level 3.9 mmol/L (3.5-5.1) Chloride Level 108 mmol/L (98-107) Carbon Dioxide Level 29 mmol/L (21-32) Anion Gap 10 (6-14) Blood Urea Nitrogen 31 mg/dL (7-20) Creatinine 0.7 mg/dL (0.6-1.0) Estimated GFR (Cockcroft-Gault) 83.2 Glucose Level 40 mg/dL (70-99) Calcium Level 7.9 mg/dL (8.5-10.1) Test 06/04/20 06:59 Glucose (Fingerstick) 199 mg/dL (70-99) Medications Active Scripts Medications Dose Route/Sig Max Daily Dose Days Date Category Actos (Pioglitazone Hcl) 45 Mg Tablet 1 Tab PO DAILY 30 05/18/20 Reported Diclofenac Sodium 75 Mg Tablet.dr 1 Tab PO BID 05/18/20 Reported Klor-Con 10 (Potassium Chloride) 10 Meq Tablet.er 1 Tab PO DAILY 30 05/18/20 Reported Metformin Hcl 1,000 Mg Tablet 1,000 Mg PO BIDWMEALS 05/18/20 Reported Omeprazole 20 Mg Capsule.dr 1 Cap PO DAILY 05/18/20 Reported Lisinopril-Hctz 20-25 Mg Tab (Lisinopril/Hydrochlorothiazide) 1 Each Tablet 1 Tab PO DAILY 05/18/20 Reported Aspirin Ec (Aspirin) 81 Mg Tablet.dr 1 Tab PO DAILY 05/18/20 Reported Hydralazine Hcl 100 Mg Tablet 1 Tab PO BID 05/18/20 Reported Metoprolol Tartrate 50 Mg Tablet 1 Tab PO BID 05/18/20 Reported Rosuvastatin Calcium 10 Mg Tablet 10 Mg PO DAILY 05/18/20 Reported Comments CXR : Impression: Moderate bilateral infiltrates could be secondary to atypical pneumonia or CHF. This appears similar to the prior study although there is improved aeration of the left lung base. Impression . IMPRESSION: 1. Acute hypoxic respiratory failure--worsening now on BIPAP 2. Abnormal chest x-ray/ARDS 3. Fever, resolved 4. Hypoglycemic encephalopathy, resolved. 5. Severe protein-calorie malnutrition. 6. Mild azotemia. 7. SARS-CoV-2 negative x2, May 18, May 19 8. Negative blood cultures 9. Possible Boop 10. Negative CT angiogram for PE 11. Acute lung injury 11. SARS-CoV-2 positive on May 31/COVID-19 Impression: 1. No evidence of pulmonary embolism. 2. Mild left effusion and moderate bilateral infiltrates right worse than left. This could be ARDS or pulmonary edema or atypical pneumonia. Plan . Slowly improving we will continue current support D-dimer noted, continue Lovenox twice daily Continue antiviral, continue antiviral Start oral feeding SARS COVID 2, reported positive from 05/31, considering current patients status, will initiate Remdesivir Discussed with daughter on the phone, 05/31 answer the whole of her questions, informed her that she had acute lung injury which will improve with time and support with steroids and oxygen Increase steroid, I do not think she needs additional antibiotics Diuresis, as needed ABX per ID DM per IM HTN per IM PT/OT D/W RN and RT KING WHITTINGTON MD Jun 04, 2020 08:37
[2020-06-04] MEDS: METOPROLOL TART IMMED RELEASE 50 MG TABLET. PO SCH ×2 (09:00→21:00)
--- NOTE | 2020-06-04 09:22 | PDOC ---
PROGRESS NOTES Chief Complaint Chief Complaint Acute hypoxic respiratory failure secondary to multifocal infiltrate/pleural effusions Sepsis Hyperthyroidism likely Graves Dz Hypoglycemic encephalopathy, IMPROVING Severe protein-calorie malnutrition. DM2, HTN urinary retention, pain COVID + 05/30 - COVID-19 negative on 05/18/2020 and 05/19/2020. Remdesivir started 06/01 Pneumonia. sputum cx: Resp gerri. Off vanc/Zosyn/doxy. Off Augmentin CHF Severe protein-calorie malnutrition Gram-positive cocci bacteremia, 05/18/2020, 1 out of 2 bottles, ID MICROCOCCUS SPECIES, likely a contaminant. History of Present Illness History of Present Illness 05/30 transfer to ICU for hypoxia, urinary retention, maldonado placed, had been striaight cath, 06/01, still hypoxia, some dyspena, on bipap COVID was pos. Started on remdisivir 06/02: Increased shortness of breath. On BIPAP overnight, transitioned to vapotherm. No cough/F/C/aches/nausea. Feels better. Family contacting nursing staff frequently. 06/03:Afebrile. Still with increased inflammatory markers. Overall feels better. Required Vapotherm during the day was on BiPAP overnight. Sodium up to 150 today, ABG 7.51/40 , placed back on BiPAP, no complaints except she is very tired. Afebrile. WBC 16.4. Glucose 40 this morning. Asking to eat. On BIPAP. Remdesivir to initiate per pulm recommendations based on her clinical course. Change glargine from BID to QHS, cut dosing by 40%. cc time 38 minutes Vitals Vitals Vital Signs Date Time Temp Pulse Resp B/P (MAP) Pulse Ox O2 Delivery O2 Flow Rate FiO2 06/04/20 07:51 99 BiPAP/CPAP 06/04/20 07:24 45 23 135/58 (83) 06/04/20 04:00 40.0 06/04/20 04:00 97.1 97.1 Physical Exam Physical Exam GENERAL: Propped up in bed, alert, calm - appears comfortable HEENT: On BiPAP NECK: Supple. LUNGS: CTA HEART: S1, S2. regular ABDOMEN: Obese, soft, nontender : Maldonado in place EXTREMITIES: trace edema lower extremities bilaterally. No cyanosis DERMATOLOGIC: Warm, dry. No generalized rash. NEUROLOGIC: Alert, responds appropriately General: Alert, Cooperative, No acute distress Heart: Regular rate, Normal S1, Normal S2, No murmurs Lungs: Clear Abdomen: Normal bowel sounds, Soft, No tenderness, No hepatosplenomegaly Labs LABS Laboratory Tests Test 06/03/20 17:43 06/03/20 20:25 06/04/20 05:00 06/04/20 06:46 Glucose (Fingerstick) 118 mg/dL (70-99) 159 mg/dL (70-99) 38 mg/dL (70-99) White Blood Count 16.4 x10^3/uL (4.0-11.0) Red Blood Count 3.57 x10^6/uL (3.50-5.40) Hemoglobin 9.7 g/dL (12.0-15.5) Hematocrit 29.8 % (36.0-47.0) Mean Corpuscular Volume 83 fL (79-100) Mean Corpuscular Hemoglobin 27 pg (25-35) Mean Corpuscular Hemoglobin Concent 33 g/dL (31-37) Red Cell Distribution Width 17.9 % (11.5-14.5) Platelet Count 325 x10^3/uL (140-400) Neutrophils (%) (Auto) 92 % (31-73) Lymphocytes (%) (Auto) 3 % (24-48) Monocytes (%) (Auto) 5 % (0-9) Eosinophils (%) (Auto) 0 % (0-3) Basophils (%) (Auto) 0 % (0-3) Neutrophils # (Auto) 15.2 x10^3/uL (1.8-7.7) Lymphocytes # (Auto) 0.4 x10^3/uL (1.0-4.8) Monocytes # (Auto) 0.8 x10^3/uL (0.0-1.1) Eosinophils # (Auto) 0.0 x10^3/uL (0.0-0.7) Basophils # (Auto) 0.0 x10^3/uL (0.0-0.2) Sodium Level 147 mmol/L (136-145) Potassium Level 3.9 mmol/L (3.5-5.1) Chloride Level 108 mmol/L (98-107) Carbon Dioxide Level 29 mmol/L (21-32) Anion Gap 10 (6-14) Blood Urea Nitrogen 31 mg/dL (7-20) Creatinine 0.7 mg/dL (0.6-1.0) Estimated GFR (Cockcroft-Gault) 83.2 Glucose Level 40 mg/dL (70-99) Calcium Level 7.9 mg/dL (8.5-10.1) Test 06/04/20 06:59 Glucose (Fingerstick) 199 mg/dL (70-99) Assessment and Plan Assessmemt and Plan Problems Medical Problems: (1) Altered mental status Status: Acute (2) Hypoglycemia Status: Acute (3) Hypothermia Status: Acute Comment Review of Relevant I have reviewed the following items kavya (where applicable) has been applied. Labs Laboratory Tests Test 06/02/20 16:30 06/02/20 17:39 06/02/20 21:18 06/03/20 07:35 D-Dimer (Shu) 2.08 ug/mlFEU (0.00-0.50) Glucose (Fingerstick) 153 mg/dL (70-99) 144 mg/dL (70-99) O2 Saturation 87 % (92-99) Arterial Blood pH 7.51 (7.35-7.45) Arterial Blood pCO2 at Patient Temp 47 mmHg (35-46) Arterial Blood pO2 at Patient Temp 54 mmHg (65-108) Arterial Blood HCO3 36 mmol/L (21-28) Arterial Blood Base Excess 12 mmol/L (-3-3) FiO2 70% Test 06/03/20 08:10 06/03/20 17:43 06/03/20 20:25 06/04/20 05:00 White Blood Count 12.2 x10^3/uL (4.0-11.0) 16.4 x10^3/uL (4.0-11.0) Red Blood Count 3.46 x10^6/uL (3.50-5.40) 3.57 x10^6/uL (3.50-5.40) Hemoglobin 9.4 g/dL (12.0-15.5) 9.7 g/dL (12.0-15.5) Hematocrit 28.8 % (36.0-47.0) 29.8 % (36.0-47.0) Mean Corpuscular Volume 83 fL (79-100) 83 fL (79-100) Mean Corpuscular Hemoglobin 27 pg (25-35) 27 pg (25-35) Mean Corpuscular Hemoglobin Concent 33 g/dL (31-37) 33 g/dL (31-37) Red Cell Distribution Width 17.5 % (11.5-14.5) 17.9 % (11.5-14.5) Platelet Count 284 x10^3/uL (140-400) 325 x10^3/uL (140-400) Neutrophils (%) (Auto) 93 % (31-73) 92 % (31-73) Lymphocytes (%) (Auto) 2 % (24-48) 3 % (24-48) Monocytes (%) (Auto) 5 % (0-9) 5 % (0-9) Eosinophils (%) (Auto) 0 % (0-3) 0 % (0-3) Basophils (%) (Auto) 0 % (0-3) 0 % (0-3) Neutrophils # (Auto) 11.3 x10^3/uL (1.8-7.7) 15.2 x10^3/uL (1.8-7.7) Lymphocytes # (Auto) 0.3 x10^3/uL (1.0-4.8) 0.4 x10^3/uL (1.0-4.8) Monocytes # (Auto) 0.6 x10^3/uL (0.0-1.1) 0.8 x10^3/uL (0.0-1.1) Eosinophils # (Auto) 0.0 x10^3/uL (0.0-0.7) 0.0 x10^3/uL (0.0-0.7) Basophils # (Auto) 0.0 x10^3/uL (0.0-0.2) 0.0 x10^3/uL (0.0-0.2) Sodium Level 150 mmol/L (136-145) 147 mmol/L (136-145) Potassium Level 3.4 mmol/L (3.5-5.1) 3.9 mmol/L (3.5-5.1) Chloride Level 107 mmol/L (98-107) 108 mmol/L (98-107) Carbon Dioxide Level 35 mmol/L (21-32) 29 mmol/L (21-32) Anion Gap 8 (6-14) 10 (6-14) Blood Urea Nitrogen 32 mg/dL (7-20) 31 mg/dL (7-20) Creatinine 0.7 mg/dL (0.6-1.0) 0.7 mg/dL (0.6-1.0) Estimated GFR (Cockcroft-Gault) 83.2 83.2 BUN/Creatinine Ratio 46 (6-20) Glucose Level 76 mg/dL (70-99) 40 mg/dL (70-99) Calcium Level 7.8 mg/dL (8.5-10.1) 7.9 mg/dL (8.5-10.1) Phosphorus Level 3.3 mg/dL (2.6-4.7) Magnesium Level 2.1 mg/dL (1.8-2.4) Total Bilirubin 0.3 mg/dL (0.2-1.0) Aspartate Amino Transf (AST/SGOT) 39 U/L (15-37) Alanine Aminotransferase (ALT/SGPT) 36 U/L (14-59) Alkaline Phosphatase 199 U/L (46-116) Total Protein 5.8 g/dL (6.4-8.2) Albumin 2.0 g/dL (3.4-5.0) Albumin/Globulin Ratio 0.5 (1.0-1.7) Glucose (Fingerstick) 118 mg/dL (70-99) 159 mg/dL (70-99) Test 06/04/20 06:46 06/04/20 06:59 Glucose (Fingerstick) 38 mg/dL (70-99) 199 mg/dL (70-99) Laboratory Tests Test 06/03/20 17:43 06/03/20 20:25 06/04/20 05:00 06/04/20 06:46 Glucose (Fingerstick) 118 mg/dL (70-99) 159 mg/dL (70-99) 38 mg/dL (70-99) White Blood Count 16.4 x10^3/uL (4.0-11.0) Red Blood Count 3.57 x10^6/uL (3.50-5.40) Hemoglobin 9.7 g/dL (12.0-15.5) Hematocrit 29.8 % (36.0-47.0) Mean Corpuscular Volume 83 fL (79-100) Mean Corpuscular Hemoglobin 27 pg (25-35) Mean Corpuscular Hemoglobin Concent 33 g/dL (31-37) Red Cell Distribution Width 17.9 % (11.5-14.5) Platelet Count 325 x10^3/uL (140-400) Neutrophils (%) (Auto) 92 % (31-73) Lymphocytes (%) (Auto) 3 % (24-48) Monocytes (%) (Auto) 5 % (0-9) Eosinophils (%) (Auto) 0 % (0-3) Basophils (%) (Auto) 0 % (0-3) Neutrophils # (Auto) 15.2 x10^3/uL (1.8-7.7) Lymphocytes # (Auto) 0.4 x10^3/uL (1.0-4.8) Monocytes # (Auto) 0.8 x10^3/uL (0.0-1.1) Eosinophils # (Auto) 0.0 x10^3/uL (0.0-0.7) Basophils # (Auto) 0.0 x10^3/uL (0.0-0.2) Sodium Level 147 mmol/L (136-145) Potassium Level 3.9 mmol/L (3.5-5.1) Chloride Level 108 mmol/L (98-107) Carbon Dioxide Level 29 mmol/L (21-32) Anion Gap 10 (6-14) Blood Urea Nitrogen 31 mg/dL (7-20) Creatinine 0.7 mg/dL (0.6-1.0) Estimated GFR (Cockcroft-Gault) 83.2 Glucose Level 40 mg/dL (70-99) Calcium Level 7.9 mg/dL (8.5-10.1) Test 06/04/20 06:59 Glucose (Fingerstick) 199 mg/dL (70-99) Microbiology 05/26/20 Gram Stain Evaluation - Final, Complete 05/26/20 Respiratory Culture - Final, Complete 05/24/20 Blood Culture - Final, Complete NO GROWTH AFTER 5 DAYS 05/18/20 Urine Culture - Final, Complete Medications Current Medications Sodium Chloride 1,000 ml @ 1,000 mls/hr 1X ONCE IV Last administered on 05/18/20at 09:29; Start 05/18/20 at 09:15; Stop 05/18/20 at 10:14; Status DC Ceftriaxone Sodium (Rocephin) 1 gm 1X ONCE IVP Last administered on 05/18/20at 09:28; Start 05/18/20 at 09:15; Stop 05/18/20 at 09:16; Status DC Ondansetron HCl (Zofran) 4 mg PRN Q8HRS PRN IV NAUSEA/VOMITING; Start 05/18/20 at 10:15; Stop 05/18/20 at 16:24; Status DC Acetaminophen (Tylenol) 650 mg PRN Q4HRS PRN PO FEVER > 100.3'F; Start 05/18/20 at 10:15; Stop 05/18/20 at 16:24; Status DC Ceftriaxone Sodium (Rocephin) 1 gm Q24H IVP Last administered on 05/24/20at 09:09; Start 05/19/20 at 09:00; Stop 05/24/20 at 18:10; Status DC Sodium Chloride (Normal Saline Flush) 3 ml QSHIFT PRN IV AFTER MEDS AND BLOOD DRAWS; Start 05/18/20 at 16:30 Sodium Chloride 1,000 ml @ 85 mls/hr [id number] IV Last administered on 05/24/20at 18:31; Start 05/18/20 at 16:20; Stop 05/25/20 at 09:44; Status DC Ondansetron HCl (Zofran) 4 mg PRN Q4HRS PRN IV NAUSEA/VOMITING; Start 05/18/20 at 16:30 Acetaminophen (Tylenol) 650 mg PRN Q4HRS PRN PO TEMP OVER 100.4F OR MILD PAIN Last administered on 05/30/20at 20:09; Start 05/18/20 at 16:30 Acetaminophen (Tylenol Supp) 650 mg PRN Q4HRS PRN SD TEMP OVER 100.4F OR MILD PAIN; Start 05/18/20 at 16:30 Sodium Monofluorophosphate (Fleet Adult) 133 ml PRN DAILY PRN SD CONSTIPATION; Start 05/18/20 at 16:30 Docusate Sodium (Colace) 100 mg PRN BID PRN PO HARD STOOLS; Start 05/18/20 at 16:30 Albuterol Sulfate (Ventolin Neb Soln) 2.5 mg PRN Q4HRS PRN NEB SHORTNESS OF BREATH Last administered on 05/21/20 18:14; Start 05/18/20 at 16:30; Stop 05/31/20 at 16:19; Status DC Guaifenesin (Robitussin) 200 mg PRN Q4HRS PRN PO COUGH Last administered on 05/23/20at 20:00; Start 05/18/20 at 16:30 Enoxaparin Sodium (Lovenox 40mg Syringe) 40 mg Q24H SQ Last administered on 05/31/20 17:03; Start 05/18/20 at 17:00; Stop 06/01/20 at 10:27; Status DC Aspirin (Ecotrin) 81 mg DAILY PO Last administered on 06/04/20 07:58; Start 05/19/20 at 09:00 Metoprolol Tartrate (Lopressor) 50 mg BID PO Last administered on 05/21/20at 09:16; Start 05/19/20 at 09:00; Stop 05/21/20 at 15:45; Status DC Diclofenac Sodium (Voltaren) 75 mg BID PO Last administered on 06/03/20 20:29; Start 05/19/20 at 10:00; Stop 06/04/20 at 08:03; Status DC Hydralazine HCl (Apresoline) 100 mg BID PO Last administered on 05/21/20 09:15; Start 05/19/20 at 09:00; Stop 05/21/20 at 15:45; Status DC Lisinopril (Prinivil) 20 mg DAILY PO Last administered on 05/21/20at 09:16; Start 05/19/20 at 10:00; Stop 05/21/20 at 15:45; Status DC Pantoprazole Sodium (Protonix) 40 mg DAILYAC PO Last administered on 06/04/20 08:03; Start 05/19/20 at 10:00 Atorvastatin Calcium (Lipitor) 40 mg QHS PO Last administered on 06/03/20 20:38; Start 05/19/20 at 21:00 Hydrochlorothiazide (Hydrodiuril) 25 mg DAILY PO Last administered on 05/23/20at 08:59; Start 05/19/20 at 10:00; Stop 05/23/20 at 10:22; Status DC Lactobacillus Rhamnosus (Culturelle) 1 cap BID PO Last administered on 06/04/20at 07:58; Start 05/19/20 at 21:00 Insulin Human Lispro (HumaLOG) 0-7 UNITS TIDWMEALS SQ Last administered on 06/02/20at 17:50; Start 05/19/20 at 17:00 Dextrose (Dextrose 50%-Water Syringe) 12.5 gm PRN Q15MIN PRN IV SEE COMMENTS Last administered on 06/04/20at 06:52; Start 05/19/20 at 14:15 Methimazole (Tapazole) 5 mg BID PO Last administered on 06/04/20at 08:00; Start 05/20/20 at 10:00 Insulin Glargine (Lantus Syringe) 5 unit DAILY SQ Last administered on 05/22/20at 09:15; Start 05/21/20 at 09:00; Stop 05/22/20 at 21:05; Status DC Doxycycline Hyclate (Vibra-Tab) 100 mg BID PO Last administered on 05/28/20at 08:53; Start 05/21/20 at 15:00; Stop 05/28/20 at 15:02; Status DC Furosemide (Lasix) 20 mg 1X ONCE IVP Last administered on 05/21/20 17:05; Start 05/21/20 at 17:00; Stop 05/21/20 at 17:01; Status DC Sterile Water (WATER for RESP) 1,000 ml CONT PRN INH VIA VAPOTHERM DEVICE Last administered on 05/23/20at 16:26; Start 05/21/20 at 17:15; Stop 05/30/20 at 12:58; Status DC Albuterol Sulfate (Ventolin Neb Soln) 2.5 mg Q4HRS NEB Last administered on 05/30/20at 15:45; Start 05/21/20 at 20:00; Stop 05/31/20 at 16:19; Status DC Vancomycin HCl (Vanco Per Pharmacy) 1 each PRN DAILY PRN MC SEE COMMENTS Last administered on 05/25/20at 23:52; Start 05/22/20 at 09:00; Stop 05/27/20 at 16:29; Status DC Vancomycin HCl 2 gm/Sodium Chloride 500 ml @ 250 mls/hr 1X ONCE IV Last administered on 05/22/20 09:05; Start 05/22/20 at 09:00; Stop 05/22/20 at 10:59; Status DC Vancomycin HCl 1.25 gm/Sodium Chloride 250 ml @ 167 mls/hr Q24H IV Last administered on 05/23/20at 09:00; Start 05/23/20 at 09:00; Stop 05/24/20 at 10:05; Status DC Vancomycin HCl (Vancomycin Trough Level) 1 each 1X ONCE MC Last administered on 05/24/20at 08:30; Start 05/24/20 at 08:30; Stop 05/24/20 at 08:31; Status DC Methylprednisolone Sodium Succinate (SOLU-Medrol 125MG VIAL) 80 mg Q8HRS IV Last administered on 05/27/20at 06:04; Start 05/22/20 at 14:00; Stop 05/27/20 at 12:02; Status DC Insulin Glargine (Lantus Syringe) 10 unit BID SQ Last administered on 05/23/20at 09:11; Start 05/22/20 at 21:00; Stop 05/23/20 at 20:17; Status DC Metoprolol Tartrate (Lopressor) 50 mg BID PO Last administered on 06/03/20 20:29; Start 05/23/20 at 10:30 Hydrochlorothiazide (Microzide) 12.5 mg DAILY PO Last administered on 06/03/20 09:56; Start 05/24/20 at 09:00 Potassium Chloride (Klor-Con) 40 meq Q2H PO Last administered on 05/23/20at 14:58; Start 05/23/20 at 10:30; Stop 05/23/20 at 14:31; Status DC Lisinopril (Prinivil) 40 mg DAILY PO Last administered on 06/03/20 09:55; Start 05/23/20 at 10:30 Hydralazine HCl (Apresoline) 100 mg BID PO Last administered on 06/03/20at 20:38; Start 05/23/20 at 10:30 Insulin Glargine (Lantus Syringe) 10 unit BID SQ Last administered on 05/24/20at 09:14; Start 05/23/20 at 21:00; Stop 05/24/20 at 11:28; Status DC Vancomycin HCl 1.25 gm/Sodium Chloride 250 ml @ 167 mls/hr Q12H IV Last administered on 05/27/20at 08:21; Start 05/24/20 at 10:30; Stop 05/27/20 at 16:26; Status DC Vancomycin HCl (Vancomycin Trough Level) 1 each 1X ONCE MC Last administered on 05/25/20at 22:00; Start 05/25/20 at 22:00; Stop 05/25/20 at 22:01; Status DC Insulin Glargine (Lantus Syringe) 12 unit BID SQ ; Start 05/24/20 at 21:00; Stop 05/24/20 at 17:27; Status DC Insulin Glargine (Lantus Syringe) 15 unit BID SQ Last administered on 05/25/20at 08:19; Start 05/24/20 at 21:00; Stop 05/25/20 at 09:47; Status DC Insulin Human Lispro (HumaLOG) 7 units 1X ONCE SQ Last administered on 05/24/20at 18:01; Start 05/24/20 at 17:30; Stop 05/24/20 at 17:31; Status DC Piperacillin Sod/ Tazobactam Sod 3.375 gm/Sodium Chloride 50 ml @ 100 mls/hr Q6HRS IV Last administered on 05/28/20at 12:09; Start 05/24/20 at 18:30; Stop 05/28/20 at 15:01; Status DC Insulin Human Lispro (HumaLOG) 11 units 1X SQ ; Start 05/24/20 at 21:30; Status Cancel Insulin Human Lispro (HumaLOG) 11 units 1X ONCE SQ Last administered on 05/24/20at 22:25; Start 05/24/20 at 22:00; Stop 05/24/20 at 22:01; Status DC Furosemide (Lasix) 20 mg 1X ONCE IVP Last administered on 05/25/20at 11:12; Start 05/25/20 at 10:00; Stop 05/25/20 at 10:01; Status DC Insulin Glargine (Lantus Syringe) 18 unit BID SQ Last administered on 05/27/20at 08:33; Start 05/25/20 at 21:00; Stop 7/2/20 at 12:00; Status DC Midazolam HCl (Versed) 2 mg 1X ONCE IV ; Start 05/25/20 at 10:30; Stop 05/25/20 at 10:31; Status Cancel Fentanyl Citrate (Fentanyl 2ml Vial) 50 mcg 1X ONCE IM ; Start 05/25/20 at 10:30; Stop 05/25/20 at 10:31; Status Cancel Hydralazine HCl (Apresoline Inj) 10 mg PRN Q4HRS PRN IVP ELEVATED BP, SEE COMMENTS Last administered on 05/29/20at 11:06; Start 05/25/20 at 16:15 Potassium Chloride (Klor-Con) 40 meq 1X ONCE PO Last administered on 05/26/20at 18:43; Start 05/26/20 at 18:30; Stop 05/26/20 at 18:31; Status DC Insulin Glargine (Lantus Syringe) 22 unit BID SQ Last administered on 05/29/20at 08:24; Start 05/27/20 at 21:00; Stop 05/29/20 at 12:14; Status DC Methylprednisolone Sodium Succinate (SOLU-Medrol 125MG VIAL) 40 mg Q12HR IV Last administered on 05/28/20at 08:52; Start 05/27/20 at 19:00; Stop 05/28/20 at 13:37; Status DC Nystatin (Nystatin Oral Susp) 5 ml [id number] Last administered on 06/04/20at 08:00; Start 05/27/20 at 17:00 Insulin Human Lispro (HumaLOG) 20 units 1X ONCE SQ Last administered on 05/27/20at 17:32; Start 05/27/20 at 17:30; Stop 05/27/20 at 17:31; Status DC Methylprednisolone Sodium Succinate (SOLU-Medrol 40MG VIAL) 40 mg Q12HR IV Last administered on 05/30/20at 08:34; Start 05/28/20 at 21:00; Stop 05/30/20 at 14:10; Status DC Amoxicillin/ Clavulanate Potassium (Augmentin 875/ 125mg) 1 tab BID PO Last administered on 05/31/20at 19:53; Start 05/28/20 at 21:00; Stop 05/31/20 at 21:01; Status DC Amlodipine Besylate (Norvasc) 2.5 mg DAILY PO Last administered on 06/03/20at 09:55; Start 05/29/20 at 11:45 Furosemide (Lasix) 20 mg 1X ONCE PO Last administered on 05/29/20at 12:40; Start 05/29/20 at 12:30; Stop 05/29/20 at 12:31; Status DC Potassium Chloride (Klor-Con) 20 meq 1X ONCE PO Last administered on 05/29/20 12:40; Start 05/29/20 at 12:30; Stop 05/29/20 at 12:31; Status DC Insulin Glargine (Lantus Syringe) 25 unit BID SQ Last administered on 06/04/20at 07:58; Start 05/29/20 at 21:00 Furosemide (Lasix) 40 mg 1X ONCE IVP Last administered on 05/30/20at 11:47; Start 05/30/20 at 11:15; Stop 05/30/20 at 11:16; Status DC Iohexol (Omnipaque 350 Mg/ml) 100 ml 1X ONCE IV Last administered on 05/30/20at 12:00; Start 05/30/20 at 12:00; Stop 05/30/20 at 12:01; Status DC Info (CONTRAST GIVEN -- Rx MONITORING) 1 each PRN DAILY PRN MC SEE COMMENTS; Start 05/30/20 at 12:15; Stop 06/01/20 at 12:14; Status DC Sterile Water (WATER for RESP) 1,000 ml CONT PRN INH VIA VAPOTHERM DEVICE Last administered on 05/30/20at 22:34; Start 05/30/20 at 13:00 Methylprednisolone Sodium Succinate (SOLU-Medrol 125MG VIAL) 125 mg Q12HR IV Last administered on 06/04/20at 08:01; Start 05/30/20 at 14:15 Enoxaparin Sodium (Lovenox 40mg Syringe) 40 mg BID SQ Last administered on 06/04/20at 08:07; Start 06/01/20 at 21:00 Non-Formulary Medication 1 ea/ Sodium Chloride 210 ml @ 210 mls/hr 1X ONCE IV Last administered on 06/01/20at 17:11; Start 06/01/20 at 16:30; Stop 06/01/20 at 17:29; Status DC Non-Formulary Medication 1 ea/ Sodium Chloride 230 ml @ 460 mls/hr DAILY IV Last administered on 06/04/20at 07:57; Start 06/02/20 at 09:00; Stop 06/05/20 at 09:29 Potassium Chloride (Klor-Con) 40 meq 1X ONCE PO Last administered on 06/03/20at 09:51; Start 06/03/20 at 08:00; Stop 06/03/20 at 08:01; Status DC Diclofenac Sodium (Voltaren) 75 mg BID PO ; Start 06/04/20 at 08:03; Stop 06/04/20 at 08:04; Status DC Diclofenac Sodium (Voltaren) 75 mg BID PO Last administered on 06/04/20at 08:10; Start 06/04/20 at 09:00 Active Scripts Active Reported Actos (Pioglitazone Hcl) 45 Mg Tablet 1 Tab PO DAILY 30 Days Diclofenac Sodium 75 Mg Tablet.dr 1 Tab PO BID Klor-Con 10 (Potassium Chloride) 10 Meq Tablet.er 1 Tab PO DAILY 30 Days Metformin Hcl 1,000 Mg Tablet 1,000 Mg PO BIDWMEALS Omeprazole 20 Mg Capsule.dr 1 Cap PO DAILY Lisinopril-Hctz 20-25 Mg Tab (Lisinopril/Hydrochlorothiazide) 1 Each Tablet 1 Tab PO DAILY Aspirin Ec (Aspirin) 81 Mg Tablet.dr 1 Tab PO DAILY Hydralazine Hcl 100 Mg Tablet 1 Tab PO BID Metoprolol Tartrate 50 Mg Tablet 1 Tab PO BID Rosuvastatin Calcium 10 Mg Tablet 10 Mg PO DAILY Vitals/I & O Vital Sign - Last 24 Hours 06/03/20 06/03/20 06/03/20 06/03/20 09:53 09:55 09:55 10:00 Pulse 65 65 65 60 Resp 27 B/P (MAP) 169/59 169/59 169/59 161/55 (90) Pulse Ox 94 O2 Delivery BiPAP/CPAP 06/03/20 06/03/20 06/03/20 06/03/20 10:01 11:00 11:19 12:00 Temp 98.0 98.0 Pulse 65 56 49 Resp 26 21 B/P (MAP) 169/59 145/50 (81) 127/51 (76) Pulse Ox 98 95 94 O2 Delivery BiPAP/CPAP BiPAP/CPAP BiPAP/CPAP 06/03/20 06/03/20 06/03/20/9/20 12:33 13:07 14:00 14:40 Pulse 49 56 Resp 23 23 B/P (MAP) 135/47 (76) 136/51 (79) Pulse Ox 99 100 99 O2 Delivery Bi-pap BiPAP/CPAP BiPAP/CPAP BiPAP/CPAP 06/03/20 06/03/20 06/03/20 06/03/20 14:41 15:32 16:20 17:07 Temp 98.0 98.0 Pulse 84 56 63 Resp 30 28 B/P (MAP) 139/106 (117) 121/41 (67) 129/48 (75) Pulse Ox 92 99 94 98 O2 Delivery VAPOTHERM Vapotherm Vapotherm Vapotherm O2 Flow Rate 40.0 06/03/20 06/03/20 06/03/20 06/03/20 18:21 19:00 19:30 20:00 Temp 97.8 97.8 Pulse 60 61 58 Resp B/P (MAP) 139/58 (85) 140/53 (82) 129/48 (75) Pulse Ox 94 94 92 85 O2 Delivery Vapotherm Vapotherm VAPOTHERM Vapotherm O2 Flow Rate 40.0 06/03/20 06/03/20 06/03/20 06/03/20 20:00 20:29 20:38 21:00 Pulse 67 67 B/P (MAP) 133/45 133/45 O2 Delivery Nasal Cannula O2 Flow Rate 40.0 40.0 06/03/20 06/03/20 06/03/20 06/03/20 21:00 22:00 23:00 23:21 Pulse 72 52 49 Resp 26 B/P (MAP) 147/65 (92) 152/54 (86) 149/50 (83) Pulse Ox 98 94 96 97 O2 Delivery BiPAP/CPAP BiPAP/CPAP BiPAP/CPAP BiPAP/CPAP 06/04/20 06/04/20 06/04/20 06/04/20 00:00 00:00 00:01 01:00 Temp 97.2 97.2 Pulse 52 51 Resp 26 B/P (MAP) 153/62 (92) 145/53 (83) Pulse Ox 98 97 O2 Delivery Bi-pap BiPAP/CPAP BiPAP/CPAP O2 Flow Rate 40.0 06/04/20 06/04/20 06/04/20 06/04/20 02:00 03:00 03:05 03:50 Pulse 43 50 Resp 28 28 B/P (MAP) 140/52 (81) 150/56 (87) Pulse Ox 97 97 97 O2 Delivery BiPAP/CPAP BiPAP/CPAP BiPAP/CPAP Bi-pap 06/04/20 06/04/20 06/04/20 06/04/20 04:00 04:00 05:00 06:00 Temp 97.1 97.1 Pulse 48 43 44 Resp 24 20 20 B/P (MAP) 149/48 (81) 156/65 (95) 148/71 (96) Pulse Ox 99 100 100 O2 Delivery BiPAP/CPAP BiPAP/CPAP BiPAP/CPAP O2 Flow Rate 40.0 06/04/20 06/04/20 07:24 07:51 Pulse 45 Resp 23 B/P (MAP) 135/58 (83) Pulse Ox 97 99 O2 Delivery BiPAP/CPAP BiPAP/CPAP Intake and Output 06/03/20 06/03/20 06/04/20 15:00 23:00 07:00 Output Total 375 ml 625 ml 300 ml Balance -375 ml -625 ml -300 ml Justicifation of Admission Dx: Justifications for Admission: Justification of Admission Dx: Yes Altered Mental Status: Altered Mental Status REZA RUST MD Jun 04, 2020 09:22
[2020-06-04] MEDS: STERILE WATER for RESP 1,000 ML BAG. INH PRN ×2 (11:34→21:11)
--- NOTE | 2020-06-04 12:06 | NUR ---
SS following up with discharge planning. SS reviewed pt chart and discussed with pt RN. Pt remains on BIPAP and Vapotherm. Pt COVID19 positive. Pt accepted at [facility], ; fax [phone], pending insurance authorization. SS will await insurance determination and will proceed accordingly.
[2020-06-04] MEDS: hydroCHLOROthiazide 12.5 MG CAPSULE PO SCH (12:30)
--- NOTE | 2020-06-04 15:14 | NUR ---
SS following up with discharge planning. [facility] has sent pt case to medical facilities section director for review. SS currently awaiting insurance authorization for [employer]. SS will continue to follow for discharge planning.
--- NOTE | 2020-06-04 18:36 | NUR ---
Patient has had no changes today. Appetite is excellent. Pleasant manner.
[2020-06-04] MEDS ORDERED: INSULIN GLARGINE SYRINGE. SQ SCH (21:00)
[2020-06-04] MEDS: ATORVASTATIN CALCIUM 40 MG TABLET. PO SCH (21:00)
[2020-06-05] VITALS (23 sets, daily range): BP systolic 128–168; BP diastolic 54–79
[2020-06-05] MEDS: INSULIN LISPRO 300 UNITS/3 ML VIAL. SQ SCH ×3 (08:00→18:18)
[2020-06-05] MEDS: methIMAzole 10 MG TABLET PO SCH ×2 (09:00→21:14)
[2020-06-05] MEDS: hydroCHLOROthiazide 12.5 MG CAPSULE PO SCH (09:00)
[2020-06-05] MEDS: amLODIPine BESYLATE 5 MG TABLET PO SCH (09:00)
[2020-06-05 09:11] LABS: BASE EXCESS ABG 3 mmol/L (-3-3); HCO3 ABG 27 mmol/L (21-28); PCO2 ABG 39 mmHg (35-46); PO2 ABG 56 mmHg (65-108); SAT O2 ABG 88 % (92-99)
[2020-06-05 09:17] LABS: FIO2 ABG 100
--- NOTE | 2020-06-05 10:25 | PDOC ---
PROGRESS NOTES Chief Complaint Chief Complaint Acute hypoxic respiratory failure secondary to multifocal infiltrate/pleural effusions Sepsis Hyperthyroidism likely Graves Dz Hypoglycemic encephalopathy, IMPROVING Severe protein-calorie malnutrition. DM2, HTN urinary retention, pain COVID + 05/30 - COVID-19 negative on 05/18/2020 and 05/19/2020. Remdesivir started 06/01 Pneumonia. sputum cx: Resp gerri. Off vanc/Zosyn/doxy. Off Augmentin CHF Severe protein-calorie malnutrition Gram-positive cocci bacteremia, 05/18/2020, 1 out of 2 bottles, ID MICROCOCCUS SPECIES, likely a contaminant. History of Present Illness History of Present Illness 05/30 transfer to ICU for hypoxia, urinary retention, maldonado placed, had been striaight cath, 06/01, still hypoxia, some dyspena, on bipap COVID was pos. Started on remdisivir 06/02: Increased shortness of breath. On BIPAP overnight, transitioned to vapotherm. No cough/F/C/aches/nausea. Feels better. Family contacting nursing staff frequently. 06/03:Afebrile. Still with increased inflammatory markers. Overall feels better. Required Vapotherm during the day was on BiPAP overnight. Sodium up to 150 today, ABG 7.51/40 , placed back on BiPAP, no complaints except she is very tired. 06/04: Afebrile. WBC 16.4. Glucose 40 this morning. Asking to eat. On BIPAP. Remdesivir to initiate per pulm recommendations based on her clinical course. Change glargine from BID to QHS, cut dosing by 40%. Afebrile, on Vapotherm. On room to severe. Hypoglycemic to 48 this morning despite insulin reduction. She is asking for milk. States she feels much better. Is somewhat confused disoriented today and location. cc time 38 minutes Vitals Vitals Vital Signs Date Time Temp Pulse Resp B/P (MAP) Pulse Ox O2 Delivery O2 Flow Rate FiO2 06/05/20 07:52 99 VAPOTHERM 40.0 06/05/20 06:00 55 28 156/69 (98) 06/05/20 04:00 98.1 98.1 Physical Exam Physical Exam GENERAL: Propped up in bed, alert, calm - appears comfortable HEENT: On BiPAP NECK: Supple. LUNGS: CTA HEART: S1, S2. regular ABDOMEN: Obese, soft, nontender : Maldonado in place EXTREMITIES: trace edema lower extremities bilaterally. No cyanosis DERMATOLOGIC: Warm, dry. No generalized rash. NEUROLOGIC: Alert, responds appropriately General: Alert, Cooperative, No acute distress Heart: Regular rate, Normal S1, Normal S2, No murmurs Lungs: Clear Abdomen: Normal bowel sounds, Soft, No tenderness, No hepatosplenomegaly Labs LABS Laboratory Tests Test 06/04/20 12:37 06/04/20 17:37 06/04/20 21:23 06/05/20 09:00 Glucose (Fingerstick) 183 mg/dL (70-99) 135 mg/dL (70-99) 152 mg/dL (70-99) O2 Saturation 88 % (92-99) Arterial Blood pH 7.47 (7.35-7.45) Arterial Blood pCO2 at Patient Temp 39 mmHg (35-46) Arterial Blood pO2 at Patient Temp 56 mmHg (65-108) Arterial Blood HCO3 27 mmol/L (21-28) Arterial Blood Base Excess 3 mmol/L (-3-3) FiO2 100 Test 06/05/20 09:32 Glucose (Fingerstick) 48 mg/dL (70-99) Assessment and Plan Assessmemt and Plan Problems Medical Problems: (1) Altered mental status Status: Acute (2) Hypoglycemia Status: Acute (3) Hypothermia Status: Acute Comment Review of Relevant I have reviewed the following items kavya (where applicable) has been applied. Labs Laboratory Tests Test 06/03/20 17:43 06/03/20 20:25 06/04/20 05:00 06/04/20 06:46 Glucose (Fingerstick) 118 mg/dL (70-99) 159 mg/dL (70-99) 38 mg/dL (70-99) White Blood Count 16.4 x10^3/uL (4.0-11.0) Red Blood Count 3.57 x10^6/uL (3.50-5.40) Hemoglobin 9.7 g/dL (12.0-15.5) Hematocrit 29.8 % (36.0-47.0) Mean Corpuscular Volume 83 fL (79-100) Mean Corpuscular Hemoglobin 27 pg (25-35) Mean Corpuscular Hemoglobin Concent 33 g/dL (31-37) Red Cell Distribution Width 17.9 % (11.5-14.5) Platelet Count 325 x10^3/uL (140-400) Neutrophils (%) (Auto) 92 % (31-73) Lymphocytes (%) (Auto) 3 % (24-48) Monocytes (%) (Auto) 5 % (0-9) Eosinophils (%) (Auto) 0 % (0-3) Basophils (%) (Auto) 0 % (0-3) Neutrophils # (Auto) 15.2 x10^3/uL (1.8-7.7) Lymphocytes # (Auto) 0.4 x10^3/uL (1.0-4.8) Monocytes # (Auto) 0.8 x10^3/uL (0.0-1.1) Eosinophils # (Auto) 0.0 x10^3/uL (0.0-0.7) Basophils # (Auto) 0.0 x10^3/uL (0.0-0.2) Sodium Level 147 mmol/L (136-145) Potassium Level 3.9 mmol/L (3.5-5.1) Chloride Level 108 mmol/L (98-107) Carbon Dioxide Level 29 mmol/L (21-32) Anion Gap 10 (6-14) Blood Urea Nitrogen 31 mg/dL (7-20) Creatinine 0.7 mg/dL (0.6-1.0) Estimated GFR (Cockcroft-Gault) 83.2 Glucose Level 40 mg/dL (70-99) Calcium Level 7.9 mg/dL (8.5-10.1) Test 06/04/20 06:59 06/04/20 12:37 06/04/20 17:37 06/04/20 21:23 Glucose (Fingerstick) 199 mg/dL (70-99) 183 mg/dL (70-99) 135 mg/dL (70-99) 152 mg/dL (70-99) Test 06/05/20 09:00 06/05/20 09:32 O2 Saturation 88 % (92-99) Arterial Blood pH 7.47 (7.35-7.45) Arterial Blood pCO2 at Patient Temp 39 mmHg (35-46) Arterial Blood pO2 at Patient Temp 56 mmHg (65-108) Arterial Blood HCO3 27 mmol/L (21-28) Arterial Blood Base Excess 3 mmol/L (-3-3) FiO2 100 Glucose (Fingerstick) 48 mg/dL (70-99) Laboratory Tests Test 06/04/20 12:37 06/04/20 17:37 06/04/20 21:23 06/05/20 09:00 Glucose (Fingerstick) 183 mg/dL (70-99) 135 mg/dL (70-99) 152 mg/dL (70-99) O2 Saturation 88 % (92-99) Arterial Blood pH 7.47 (7.35-7.45) Arterial Blood pCO2 at Patient Temp 39 mmHg (35-46) Arterial Blood pO2 at Patient Temp 56 mmHg (65-108) Arterial Blood HCO3 27 mmol/L (21-28) Arterial Blood Base Excess 3 mmol/L (-3-3) FiO2 100 Test 06/05/20 09:32 Glucose (Fingerstick) 48 mg/dL (70-99) Microbiology 05/26/20 Gram Stain Evaluation - Final, Complete 05/26/20 Respiratory Culture - Final, Complete 05/24/20 Blood Culture - Final, Complete NO GROWTH AFTER 5 DAYS 05/18/20 Urine Culture - Final, Complete Medications Current Medications Sodium Chloride 1,000 ml @ 1,000 mls/hr 1X ONCE IV Last administered on 05/18at 09:29; Start 05/18/20 at 09:15; Stop 05/18/20 at 10:14; Status DC Ceftriaxone Sodium (Rocephin) 1 gm 1X ONCE IVP Last administered on 05/18/20at 09:28; Start 05/18/20 at 09:15; Stop 05/18/20 at 09:16; Status DC Ondansetron HCl (Zofran) 4 mg PRN Q8HRS PRN IV NAUSEA/VOMITING; Start 05/18/20 at 10:15; Stop 05/18/20 at 16:24; Status DC Acetaminophen (Tylenol) 650 mg PRN Q4HRS PRN PO FEVER > 100.3'F; Start 05/18/20 at 10:15; Stop 05/18/20 at 16:24; Status DC Ceftriaxone Sodium (Rocephin) 1 gm Q24H IVP Last administered on 05/24/20at 09:09; Start 05/19/20 at 09:00; Stop 05/24/20 at 18:10; Status DC Sodium Chloride (Normal Saline Flush) 3 ml QSHIFT PRN IV AFTER MEDS AND BLOOD DRAWS; Start 05/18/20 at 16:30 Sodium Chloride 1,000 ml @ 85 mls/hr [id number] IV Last administered on 05/24/20at 18:31; Start 05/18/20 at 16:20; Stop 05/25/20 at 09:44; Status DC Ondansetron HCl (Zofran) 4 mg PRN Q4HRS PRN IV NAUSEA/VOMITING; Start 05/18/20 at 16:30 Acetaminophen (Tylenol) 650 mg PRN Q4HRS PRN PO TEMP OVER 100.4F OR MILD PAIN Last administered on 05/30/20at 20:09; Start 05/18/20 at 16:30 Acetaminophen (Tylenol Supp) 650 mg PRN Q4HRS PRN AK TEMP OVER 100.4F OR MILD PAIN; Start 05/18/20 at 16:30 Sodium Monofluorophosphate (Fleet Adult) 133 ml PRN DAILY PRN AK CONSTIPATION; Start 05/18/20 at 16:30 Docusate Sodium (Colace) 100 mg PRN BID PRN PO HARD STOOLS; Start 05/18/20 at 16:30 Albuterol Sulfate (Ventolin Neb Soln) 2.5 mg PRN Q4HRS PRN NEB SHORTNESS OF BREATH Last administered on 05/21/20at 18:14; Start 05/18/20 at 16:30; Stop 05/31/20 at 16:19; Status DC Guaifenesin (Robitussin) 200 mg PRN Q4HRS PRN PO COUGH Last administered on 05/23/20at 20:00; Start 05/18/20 at 16:30 Enoxaparin Sodium (Lovenox 40mg Syringe) 40 mg Q24H SQ Last administered on 05/31/20at 17:03; Start 05/18/20 at 17:00; Stop 06/01/20 at 10:27; Status DC Aspirin (Ecotrin) 81 mg DAILY PO Last administered on 06/04/20at 07:58; Start 05/19/20 at 09:00 Metoprolol Tartrate (Lopressor) 50 mg BID PO Last administered on 05/21/20 09:16; Start 05/19/20 at 09:00; Stop 05/21/20 at 15:45; Status DC Diclofenac Sodium (Voltaren) 75 mg BID PO Last administered on 06/03/20 20:29; Start 05/19/20 at 10:00; Stop 06/04/20 at 08:03; Status DC Hydralazine HCl (Apresoline) 100 mg BID PO Last administered on 05/21/20at 09:15; Start 05/19/20 at 09:00; Stop 05/21/20 at 15:45; Status DC Lisinopril (Prinivil) 20 mg DAILY PO Last administered on 05/21/20 09:16; Start 05/19/20 at 10:00; Stop 05/21/20 at 15:45; Status DC Pantoprazole Sodium (Protonix) 40 mg DAILYAC PO Last administered on 06/04/20 08:03; Start 05/19/20 at 10:00 Atorvastatin Calcium (Lipitor) 40 mg QHS PO Last administered on 06/04/20 21:00; Start 05/19/20 at 21:00 Hydrochlorothiazide (Hydrodiuril) 25 mg DAILY PO Last administered on 05/23/20at 08:59; Start 05/19/20 at 10:00; Stop 05/23/20 at 10:22; Status DC Lactobacillus Rhamnosus (Culturelle) 1 cap BID PO Last administered on 06/04/20 21:11; Start 05/19/20 at 21:00 Insulin Human Lispro (HumaLOG) 0-7 UNITS TIDWMEALS SQ Last administered on 06/04/20at 13:04; Start 05/19/20 at 17:00 Dextrose (Dextrose 50%-Water Syringe) 12.5 gm PRN Q15MIN PRN IV SEE COMMENTS Last administered on 06/04/20 06:52; Start 05/19/20 at 14:15 Methimazole (Tapazole) 5 mg BID PO Last administered on 06/04/20 21:11; Start 05/20/20 at 10:00 Insulin Glargine (Lantus Syringe) 5 unit DAILY SQ Last administered on 05/22/20at 09:15; Start 05/21/20 at 09:00; Stop 05/22/20 at 21:05; Status DC Doxycycline Hyclate (Vibra-Tab) 100 mg BID PO Last administered on 05/28/20at 08:53; Start 05/21/20 at 15:00; Stop 05/28/20 at 15:02; Status DC Furosemide (Lasix) 20 mg 1X ONCE IVP Last administered on 05/21/20at 17:05; Start 05/21/20 at 17:00; Stop 05/21/20 at 17:01; Status DC Sterile Water (WATER for RESP) 1,000 ml CONT PRN INH VIA VAPOTHERM DEVICE Last administered on 05/23/20at 16:26; Start 05/21/20 at 17:15; Stop 05/30/20 at 12:58; Status DC Albuterol Sulfate (Ventolin Neb Soln) 2.5 mg Q4HRS NEB Last administered on 05/30/20at 15:45; Start 05/21/20 at 20:00; Stop 05/31/20 at 16:19; Status DC Vancomycin HCl (Vanco Per Pharmacy) 1 each PRN DAILY PRN MC SEE COMMENTS Last administered on 05/25/20at 23:52; Start 05/22/20 at 09:00; Stop 05/27/20 at 16:29; Status DC Vancomycin HCl 2 gm/Sodium Chloride 500 ml @ 250 mls/hr 1X ONCE IV Last administered on 05/22/20at 09:05; Start 05/22/20 at 09:00; Stop 05/22/20 at 10:59; Status DC Vancomycin HCl 1.25 gm/Sodium Chloride 250 ml @ 167 mls/hr Q24H IV Last administered on 05/23/20at 09:00; Start 05/23/20 at 09:00; Stop 05/24/20 at 10:05; Status DC Vancomycin HCl (Vancomycin Trough Level) 1 each 1X ONCE MC Last administered on 05/24/20at 08:30; Start 05/24/20 at 08:30; Stop 05/24/20 at 08:31; Status DC Methylprednisolone Sodium Succinate (SOLU-Medrol 125MG VIAL) 80 mg Q8HRS IV Last administered on 05/27/20at 06:04; Start 05/22/20 at 14:00; Stop 05/27/20 at 12:02; Status DC Insulin Glargine (Lantus Syringe) 10 unit BID SQ Last administered on 05/23/20at 09:11; Start 05/22/20 at 21:00; Stop 05/23/20 at 20:17; Status DC Metoprolol Tartrate (Lopressor) 50 mg BID PO Last administered on 06/04/20at 21:00; Start 05/23/20 at 10:30 Hydrochlorothiazide (Microzide) 12.5 mg DAILY PO Last administered on 06/04/20at 12:30; Start 05/24/20 at 09:00 Potassium Chloride (Klor-Con) 40 meq Q2H PO Last administered on 05/23/20at 14:58; Start 05/23/20 at 10:30; Stop 05/23/20 at 14:31; Status DC Lisinopril (Prinivil) 40 mg DAILY PO Last administered on 06/04/20at 12:29; Start 05/23/20 at 10:30 Hydralazine HCl (Apresoline) 100 mg BID PO Last administered on 06/04/20at 21:00; Start 05/23/20 at 10:30 Insulin Glargine (Lantus Syringe) 10 unit BID SQ Last administered on 05/24/20at 09:14; Start 05/23/20 at 21:00; Stop 05/24/20 at 11:28; Status DC Vancomycin HCl 1.25 gm/Sodium Chloride 250 ml @ 167 mls/hr Q12H IV Last administered on 05/27/20at 08:21; Start 05/24/20 at 10:30; Stop 05/27/20 at 16:26; Status DC Vancomycin HCl (Vancomycin Trough Level) 1 each 1X ONCE MC Last administered on 05/25/20at 22:00; Start 05/25/20 at 22:00; Stop 05/25/20 at 22:01; Status DC Insulin Glargine (Lantus Syringe) 12 unit BID SQ ; Start 05/24/20 at 21:00; Stop 05/24/20 at 17:27; Status DC Insulin Glargine (Lantus Syringe) 15 unit BID SQ Last administered on 05/25/20at 08:19; Start 05/24/20 at 21:00; Stop 05/25/20 at 09:47; Status DC Insulin Human Lispro (HumaLOG) 7 units 1X ONCE SQ Last administered on 05/24/20at 18:01; Start 05/24/20 at 17:30; Stop 05/24/20 at 17:31; Status DC Piperacillin Sod/ Tazobactam Sod 3.375 gm/Sodium Chloride 50 ml @ 100 mls/hr Q6HRS IV Last administered on 05/28/20at 12:09; Start 05/24/20 at 18:30; Stop 05/28/20 at 15:01; Status DC Insulin Human Lispro (HumaLOG) 11 units 1X SQ ; Start 05/24/20 at 21:30; Status Cancel Insulin Human Lispro (HumaLOG) 11 units 1X ONCE SQ Last administered on 05/24/20at 22:25; Start 05/24/20 at 22:00; Stop 05/24/20 at 22:01; Status DC Furosemide (Lasix) 20 mg 1X ONCE IVP Last administered on 05/25/20at 11:12; Start 05/25/20 at 10:00; Stop 05/25/20 at 10:01; Status DC Insulin Glargine (Lantus Syringe) 18 unit BID SQ Last administered on 05/27/20at 08:33; Start 05/25/20 at 21:00; Stop 05/27/20 at 12:00; Status DC Midazolam HCl (Versed) 2 mg 1X ONCE IV ; Start 05/25/20 at 10:30; Stop 05/25/20 at 10:31; Status Cancel Fentanyl Citrate (Fentanyl 2ml Vial) 50 mcg 1X ONCE IM ; Start 05/25/20 at 10:30; Stop 05/25/20 at 10:31; Status Cancel Hydralazine HCl (Apresoline Inj) 10 mg PRN Q4HRS PRN IVP ELEVATED BP, SEE COMMENTS Last administered on 05/29/20at 11:06; Start 05/25/20 at 16:15 Potassium Chloride (Klor-Con) 40 meq 1X ONCE PO Last administered on 05/26/20at 18:43; Start 05/26/20 at 18:30; Stop 05/26/20 at 18:31; Status DC Insulin Glargine (Lantus Syringe) 22 unit BID SQ Last administered on 05/29/20at 08:24; Start 05/27/20 at 21:00; Stop 05/29/20 at 12:14; Status DC Methylprednisolone Sodium Succinate (SOLU-Medrol 125MG VIAL) 40 mg Q12HR IV Last administered on 05/28/20at 08:52; Start 05/27/20 at 19:00; Stop 05/28/20 at 13:37; Status DC Nystatin (Nystatin Oral Susp) 5 ml [id number] Last administered on 06/04/20at 21:11; Start 05/27/20 at 17:00 Insulin Human Lispro (HumaLOG) 20 units 1X ONCE SQ Last administered on 05/27/20at 17:32; Start 05/27/20 at 17:30; Stop 05/27/20 at 17:31; Status DC Methylprednisolone Sodium Succinate (SOLU-Medrol 40MG VIAL) 40 mg Q12HR IV Last administered on 05/30/20at 08:34; Start 05/28/20 at 21:00; Stop 05/30/20 at 14:10; Status DC Amoxicillin/ Clavulanate Potassium (Augmentin 875/ 125mg) 1 tab BID PO Last administered on 05/31/20at 19:53; Start 05/28/20 at 21:00; Stop 05/31/20 at 21:01; Status DC Amlodipine Besylate (Norvasc) 2.5 mg DAILY PO Last administered on 06/04/20at 12:30; Start 05/29/20 at 11:45 Furosemide (Lasix) 20 mg 1X ONCE PO Last administered on 05/29/20at 12:40; Start 05/29/20 at 12:30; Stop 05/29/20 at 12:31; Status DC Potassium Chloride (Klor-Con) 20 meq 1X ONCE PO Last administered on 05/29/20at 12:40; Start 05/29/20 at 12:30; Stop 05/29/20 at 12:31; Status DC Insulin Glargine (Lantus Syringe) 25 unit BID SQ Last administered on 06/04/20at 07:58; Start 05/29/20 at 21:00; Stop 06/04/20 at 09:20; Status DC Furosemide (Lasix) 40 mg 1X ONCE IVP Last administered on 05/30/20at 11:47; Start 05/30/20 at 11:15; Stop 05/30/20 at 11:16; Status DC Iohexol (Omnipaque 350 Mg/ml) 100 ml 1X ONCE IV Last administered on 05/30/20at 12:00; Start 05/30/20 at 12:00; Stop 05/30/20 at 12:01; Status DC Info (CONTRAST GIVEN -- Rx MONITORING) 1 each PRN DAILY PRN MC SEE COMMENTS; Start 05/30/20 at 12:15; Stop 06/01/20 at 12:14; Status DC Sterile Water (WATER for RESP) 1,000 ml CONT PRN INH VIA VAPOTHERM DEVICE Last administered on 06/04/20at 21:11; Start 05/30/20 at 13:00 Methylprednisolone Sodium Succinate (SOLU-Medrol 125MG VIAL) 125 mg Q12HR IV Last administered on 06/04/20at 21:16; Start 05/30/20 at 14:15 Enoxaparin Sodium (Lovenox 40mg Syringe) 40 mg BID SQ Last administered on 06/04/20at 21:12; Start 06/01/20 at 21:00 Non-Formulary Medication 1 ea/ Sodium Chloride 210 ml @ 210 mls/hr 1X ONCE IV Last administered on 06/01/20at 17:11; Start 06/01/20 at 16:30; Stop 06/01/20 at 17:29; Status DC Non-Formulary Medication 1 ea/ Sodium Chloride 230 ml @ 460 mls/hr DAILY IV Last administered on 06/04/20at 07:57; Start 06/02/20 at 09:00; Stop 06/05/20 at 09:29; Status DC Potassium Chloride (Klor-Con) 40 meq 1X ONCE PO Last administered on 06/03/20at 09:51; Start 06/03/20 at 08:00; Stop 06/03/20 at 08:01; Status DC Diclofenac Sodium (Voltaren) 75 mg BID PO ; Start 06/04/20 at 08:03; Stop 06/04/20 at 08:04; Status DC Diclofenac Sodium (Voltaren) 75 mg BID PO Last administered on 06/04/20at 21:00; Start 06/04/20 at 09:00 Insulin Glargine (Lantus Syringe) 30 unit QHS SQ Last administered on 06/04/20at 21:14; Start 06/04/20 at 21:00 Active Scripts Active Reported Actos (Pioglitazone Hcl) 45 Mg Tablet 1 Tab PO DAILY 30 Days Diclofenac Sodium 75 Mg Tablet.dr 1 Tab PO BID Klor-Con 10 (Potassium Chloride) 10 Meq Tablet.er 1 Tab PO DAILY 30 Days Metformin Hcl 1,000 Mg Tablet 1,000 Mg PO BIDWMEALS Omeprazole 20 Mg Capsule.dr 1 Cap PO DAILY Lisinopril-Hctz 20-25 Mg Tab (Lisinopril/Hydrochlorothiazide) 1 Each Tablet 1 Tab PO DAILY Aspirin Ec (Aspirin) 81 Mg Tablet.dr 1 Tab PO DAILY Hydralazine Hcl 100 Mg Tablet 1 Tab PO BID Metoprolol Tartrate 50 Mg Tablet 1 Tab PO BID Rosuvastatin Calcium 10 Mg Tablet 10 Mg PO DAILY Vitals/I & O Vital Sign - Last 24 Hours 06/04/20 06/04/20 06/04/20 06/04/20 11:09 11:34 12:00 12:00 Temp 98.0 98.0 Pulse 57 58 Resp 27 29 B/P (MAP) 150/66 (94) 145/63 (90) Pulse Ox 97 100 91 O2 Delivery VAPOTHERM O2 Flow Rate 40.0 40.0 06/04/20 06/04/20 06/04/20 06/04/20 12:00 12:29 12:30 12:30 Pulse 57 57 57 B/P (MAP) 150/66 150/66 150/66 O2 Flow Rate 40.0 06/04/20 06/04/20 06/04/20 06/04/20 13:00 14:21 15:03 15:55 Pulse 58 58 59 Resp 32 32 30 B/P (MAP) 154/71 (98) 159/73 (101) 128/56 (80) Pulse Ox 92 92 87 83 O2 Delivery VAPOTHERM O2 Flow Rate 40.0 06/04/20 06/04/20 06/04/20 06/04/20 16:00 16:22 16:22 17:15 Pulse 61 66 Resp 28 36 B/P (MAP) 148/69 (95) 160/80 (106) Pulse Ox 95 94 O2 Flow Rate 40.0 40.0 06/04/20 06/04/20 06/04/20 06/04/20 18:31 19:00 20:00 20:00 Temp 97.8 97.8 Pulse 76 73 61 Resp 31 28 28 B/P (MAP) 154/92 (112) 162/77 (105) 168/76 (106) Pulse Ox 87 85 90 O2 Flow Rate 40.0 06/04/20 06/04/20 06/04/20 06/04/20 20:00 21:00 21:00 21:00 Pulse 61 61 62 Resp 32 B/P (MAP) 168/76 168/76 156/66 (96) Pulse Ox 85 O2 Flow Rate 40.0 06/04/20 06/04/20 06/04/20 06/04/20 22:00 23:00 23:59 23:59 Pulse 64 57 Resp 30 28 B/P (MAP) 132/58 (82) 155/60 (91) Pulse Ox 93 99 O2 Flow Rate 40.0 40.0 06/04/20 06/05/20 06/05/20 06/05/20 23:59 00:00 01:00 02:00 Temp 98.2 98.2 Pulse 50 50 46 Resp 28 28 24 B/P (MAP) 163/69 (100) 164/69 (100) 141/54 (83) Pulse Ox 99 96 99 99 O2 Delivery BiPAP/CPAP 06/05/20 06/05/20 06/05/20 06/05/20 03:00 03:00 04:00 04:00 Temp 98.1 98.1 Pulse 44 51 Resp 23 26 B/P (MAP) 162/67 (98) 148/57 (87) Pulse Ox 99 96 99 O2 Delivery BiPAP/CPAP O2 Flow Rate 40.0 06/05/20 06/05/20 06/05/20 06/05/20 04:00 05:00 06:00 07:52 Pulse 52 55 Resp 24 28 B/P (MAP) 168/71 (103) 156/69 (98) Pulse Ox 99 99 99 O2 Delivery VAPOTHERM O2 Flow Rate 40.0 40.0 Intake and Output 06/04/20 06/04/20 06/05/20 15:00 23:00 07:00 Intake Total 1370 ml 100 ml Output Total 250 ml 500 ml 525 ml Balance 1120 ml -400 ml -525 ml Justicifation of Admission Dx: Justifications for Admission: Justification of Admission Dx: Yes Altered Mental Status: Altered Mental Status REZA RUST MD Jun 05, 2020 10:25
[2020-06-05] MEDS: DOCUSATE SODIUM 100 MG CAPSULE. PO PRN (11:54)
[2020-06-05] MEDS: LISINOPRIL 20 MG TABLET PO SCH (11:54)
[2020-06-05] MEDS: PANTOPRAZOLE 40 MG TABLET.DR. PO SCH (11:55)
[2020-06-05] MEDS: LACTOBACILLUS RHAMNOSUS GG 1 CAPSULE. PO SCH ×2 (11:55→21:14)
[2020-06-05] MEDS: ASPIRIN ENTERIC COATED 81 MG TABLET.DR. PO SCH (11:55)
[2020-06-05] MEDS: METOPROLOL TART IMMED RELEASE 50 MG TABLET. PO SCH ×2 (11:56→21:16)
[2020-06-05] MEDS: DICLOFENAC SODIUM 25 MG TABLET.DR PO SCH ×2 (11:57→21:14)
[2020-06-05] MEDS: ENOXAPARIN 40 MG/0.4 ML SYRINGE. SQ SCH ×2 (11:58→21:13)
[2020-06-05] MEDS: NYSTATIN 100,000 UNITS/ML 5 ML ORAL.SUSP. SWSW SCH ×4 (11:58→21:13)
[2020-06-05] MEDS: methylPREDNISolone SOD SUCC PF 125 MG/2 ML VIAL. IV SCH ×2 (12:00→21:14)
--- NOTE | 2020-06-05 12:44 | PDOC ---
PULMONARY PROGRESS NOTES Subjective on vapotherm, 40 lpm, 100% fi02, sob better, has occ cough, uses bipap prn Vitals Vital Signs Date Time Temp Pulse Resp B/P (MAP) Pulse Ox O2 Delivery O2 Flow Rate FiO2 06/05/20 11:56 78 156/88 06/05/20 07:52 99 VAPOTHERM 40.0 06/05/20 06:00 28 06/05/20 04:00 98.1 98.1 Comments ros as mentioned as above other sys otherwise neg on 02 alert appears comfortable no paradoxical abd motion no edema no rash ROS: No Nausea, No Chest Pain, No Abdominal Pain General: Alert, Oriented X4 Lungs: Clear Cardiovascular: S1, S2 Abdomen: Soft Neuro Exam: Alert Extremities: Other (+2 BLE ) Skin: Warm Labs Laboratory Tests Test 06/03/20 17:43 06/03/20 20:25 06/04/20 05:00 06/04/20 06:46 Glucose (Fingerstick) 118 mg/dL (70-99) 159 mg/dL (70-99) 38 mg/dL (70-99) White Blood Count 16.4 x10^3/uL (4.0-11.0) Red Blood Count 3.57 x10^6/uL (3.50-5.40) Hemoglobin 9.7 g/dL (12.0-15.5) Hematocrit 29.8 % (36.0-47.0) Mean Corpuscular Volume 83 fL (79-100) Mean Corpuscular Hemoglobin 27 pg (25-35) Mean Corpuscular Hemoglobin Concent 33 g/dL (31-37) Red Cell Distribution Width 17.9 % (11.5-14.5) Platelet Count 325 x10^3/uL (140-400) Neutrophils (%) (Auto) 92 % (31-73) Lymphocytes (%) (Auto) 3 % (24-48) Monocytes (%) (Auto) 5 % (0-9) Eosinophils (%) (Auto) 0 % (0-3) Basophils (%) (Auto) 0 % (0-3) Neutrophils # (Auto) 15.2 x10^3/uL (1.8-7.7) Lymphocytes # (Auto) 0.4 x10^3/uL (1.0-4.8) Monocytes # (Auto) 0.8 x10^3/uL (0.0-1.1) Eosinophils # (Auto) 0.0 x10^3/uL (0.0-0.7) Basophils # (Auto) 0.0 x10^3/uL (0.0-0.2) Sodium Level 147 mmol/L (136-145) Potassium Level 3.9 mmol/L (3.5-5.1) Chloride Level 108 mmol/L (98-107) Carbon Dioxide Level 29 mmol/L (21-32) Anion Gap 10 (6-14) Blood Urea Nitrogen 31 mg/dL (7-20) Creatinine 0.7 mg/dL (0.6-1.0) Estimated GFR (Cockcroft-Gault) 83.2 Glucose Level 40 mg/dL (70-99) Calcium Level 7.9 mg/dL (8.5-10.1) Test 06/04/20 06:59 06/04/20 12:37 06/04/20 17:37 06/04/20 21:23 Glucose (Fingerstick) 199 mg/dL (70-99) 183 mg/dL (70-99) 135 mg/dL (70-99) 152 mg/dL (70-99) Test 06/05/20 09:00 06/05/20 09:32 06/05/20 12:17 O2 Saturation 88 % (92-99) Arterial Blood pH 7.47 (7.35-7.45) Arterial Blood pCO2 at Patient Temp 39 mmHg (35-46) Arterial Blood pO2 at Patient Temp 56 mmHg (65-108) Arterial Blood HCO3 27 mmol/L (21-28) Arterial Blood Base Excess 3 mmol/L (-3-3) FiO2 100 Glucose (Fingerstick) 48 mg/dL (70-99) 162 mg/dL (70-99) Laboratory Tests Test 06/04/20 17:37 06/04/20 21:23 06/05/20 09:00 06/05/20 09:32 Glucose (Fingerstick) 135 mg/dL (70-99) 152 mg/dL (70-99) 48 mg/dL (70-99) O2 Saturation 88 % (92-99) Arterial Blood pH 7.47 (7.35-7.45) Arterial Blood pCO2 at Patient Temp 39 mmHg (35-46) Arterial Blood pO2 at Patient Temp 56 mmHg (65-108) Arterial Blood HCO3 27 mmol/L (21-28) Arterial Blood Base Excess 3 mmol/L (-3-3) FiO2 100 Test 06/05/20 12:17 Glucose (Fingerstick) 162 mg/dL (70-99) Medications Active Scripts Medications Dose Route/Sig Max Daily Dose Days Date Category Actos (Pioglitazone Hcl) 45 Mg Tablet 1 Tab PO DAILY 30 05/18/20 Reported Diclofenac Sodium 75 Mg Tablet.dr 1 Tab PO BID 05/18/20 Reported Klor-Con 10 (Potassium Chloride) 10 Meq Tablet.er 1 Tab PO DAILY 30 05/18/20 Reported Metformin Hcl 1,000 Mg Tablet 1,000 Mg PO BIDWMEALS 05/18/20 Reported Omeprazole 20 Mg Capsule.dr 1 Cap PO DAILY 05/18/20 Reported Lisinopril-Hctz 20-25 Mg Tab (Lisinopril/Hydrochlorothiazide) 1 Each Tablet 1 Tab PO DAILY 05/18/20 Reported Aspirin Ec (Aspirin) 81 Mg Tablet.dr 1 Tab PO DAILY 05/18/20 Reported Hydralazine Hcl 100 Mg Tablet 1 Tab PO BID 05/18/20 Reported Metoprolol Tartrate 50 Mg Tablet 1 Tab PO BID 05/18/20 Reported Rosuvastatin Calcium 10 Mg Tablet 10 Mg PO DAILY 05/18/20 Reported Comments CXR : Impression: Moderate bilateral infiltrates could be secondary to atypical pneumonia or CHF. This appears similar to the prior study although there is improved aeration of the left lung base. Impression . IMPRESSION: 1. Acute hypoxic respiratory failure--worsening now vapotherm and prn BIPAP 2. Abnormal chest x-ray/ARDS 3. Fever, resolved 4. Hypoglycemic encephalopathy, resolved. 5. Severe protein-calorie malnutrition. 6. Mild azotemia. 7. SARS-CoV-2 negative x2, May 18, May 19 8. Negative blood cultures 9. Possible Boop 10. Negative CT angiogram for PE 11. Acute lung injury 11. SARS-CoV-2 positive on May 31/COVID-19 Impression: 1. No evidence of pulmonary embolism. 2. Mild left effusion and moderate bilateral infiltrates right worse than left. This could be ARDS or pulmonary edema or atypical pneumonia. Plan . Slowly improving we will continue current support D-dimer noted, continue Lovenox twice daily Continue antiviral, continue antiviral SARS COVID 2, reported positive from 05/31, cont Remdesivir cont steroid Diuresis, as needed ABX per ID DM per IM HTN per IM PT/OT D/W RN and RT ANNE DARDEN MD Jun 05, 2020 12:44
[2020-06-05] MEDS: STERILE WATER for RESP 1,000 ML BAG. INH PRN (16:35)
[2020-06-05] MEDS: NON FORMULARY ITEM 1 EA in IV NORMAL SALINE 250ML 230 ML IV SCH (17:38)
[2020-06-05] MEDS: ATORVASTATIN CALCIUM 40 MG TABLET. PO SCH (21:13)
[2020-06-05] MEDS: INSULIN GLARGINE SYRINGE. SQ SCH (21:21)
[2020-06-06] VITALS (24 sets, daily range): BP systolic 119–170; BP diastolic 52–82
[2020-06-06 08:23] LABS: BASO % 0 % (0-3); EOS % 0 % (0-3); HEMATOCRIT 29.8 % (36.0-47.0); HEMOGLOBIN 9.7 g/dL (12.0-15.5); LYMPH # 0.5 x10^3/uL (1.0-4.8); LYMPH % 3 % (24-48); MEAN CORPUSCULAR HEMOGLOBIN 28 pg (25-35); MEAN CORPUSCULAR HGB CONC 33 g/dL (31-37); MEAN CORPUSCULAR VOLUME 84 fL (79-100); MONO # 0.3 x10^3/uL (0.0-1.1); MONO % 2 % (0-9); NEUT # 13.9 x10^3/uL (1.8-7.7); NEUT % 94 % (31-73); PLATELET COUNT 254 x10^3/uL (140-400); RED BLOOD COUNT 3.54 x10^6/uL (3.50-5.40); RED CELL DISTRIBUTION WIDTH 17.9 % (11.5-14.5); WHITE BLOOD COUNT 14.8 x10^3/uL (4.0-11.0)
[2020-06-06] MEDS: NYSTATIN 100,000 UNITS/ML 5 ML ORAL.SUSP. SWSW SCH ×4 (08:36→22:20)
[2020-06-06] MEDS: DICLOFENAC SODIUM 25 MG TABLET.DR PO SCH ×2 (08:36→11:10)
[2020-06-06] MEDS: ENOXAPARIN 40 MG/0.4 ML SYRINGE. SQ SCH ×2 (08:37→22:22)
[2020-06-06] MEDS: methylPREDNISolone SOD SUCC PF 125 MG/2 ML VIAL. IV SCH ×2 (08:37→22:18)
[2020-06-06] MEDS: hydroCHLOROthiazide 12.5 MG CAPSULE PO SCH (08:38)
[2020-06-06] MEDS: PANTOPRAZOLE 40 MG TABLET.DR. PO SCH (08:38)
[2020-06-06 08:39] LABS: ALBUMIN 1.9 g/dL (3.4-5.0); ALBUMIN/GLOBULIN RATIO 0.5 (1.0-1.7); CALCIUM 7.6 mg/dL (8.5-10.1); CREATININE 0.8 mg/dL (0.6-1.0); GFR 71.3; TOTAL BILIRUBIN 0.4 mg/dL (0.2-1.0); TOTAL PROTEIN 5.8 g/dL (6.4-8.2)
[2020-06-06] MEDS: methIMAzole 10 MG TABLET PO SCH ×2 (08:39→22:20)
[2020-06-06] MEDS: LISINOPRIL 20 MG TABLET PO SCH (08:40)
[2020-06-06] MEDS: DOCUSATE SODIUM 100 MG CAPSULE. PO PRN (08:40)
[2020-06-06] MEDS: LACTOBACILLUS RHAMNOSUS GG 1 CAPSULE. PO SCH ×2 (08:40→22:18)
[2020-06-06] MEDS: ASPIRIN ENTERIC COATED 81 MG TABLET.DR. PO SCH (08:40)
[2020-06-06 08:45] LABS: BASE EXCESS ABG 7 mmol/L (-3-3); HCO3 ABG 32 mmol/L (21-28); PCO2 ABG 45 mmHg (35-46); PO2 ABG 52 mmHg (65-108); SAT O2 ABG 85 % (92-99)
[2020-06-06 08:51] LABS: FIO2 ABG 75
[2020-06-06] MEDS: amLODIPine BESYLATE 5 MG TABLET PO SCH (09:00)
[2020-06-06] MEDS: METOPROLOL TART IMMED RELEASE 50 MG TABLET. PO SCH ×2 (09:00→21:00)
[2020-06-06] MEDS: INSULIN LISPRO 300 UNITS/3 ML VIAL. SQ SCH ×3 (09:00→17:00)
--- NOTE | 2020-06-06 11:53 | PDOC ---
PULMONARY PROGRESS NOTES Subjective on vapotherm, 40 lpm, 100% fi02, sob better, has occ cough, uses bipap prn Vitals Vital Signs Date Time Temp Pulse Resp B/P (MAP) Pulse Ox O2 Delivery O2 Flow Rate FiO2 06/06/20 09:00 55 156/65 06/06/20 08:30 93 BiPAP/CPAP 06/06/20 06:00 21 06/06/20 04:00 40.0 06/06/20 04:00 98.2 98.2 Comments ros as mentioned as above other sys otherwise neg on 02 alert appears comfortable no paradoxical abd motion no edema no rash ROS: No Nausea, No Chest Pain, No Abdominal Pain General: Alert HEENT: Other (nc at ) Lungs: Clear Cardiovascular: S1, S2 Abdomen: Soft Neuro Exam: Alert Extremities: Other (+2 BLE ) Skin: Warm Labs Laboratory Tests Test 06/04/20 12:37 06/04/20 17:37 06/04/20 21:23 06/05/20 09:00 Glucose (Fingerstick) 183 mg/dL (70-99) 135 mg/dL (70-99) 152 mg/dL (70-99) O2 Saturation 88 % (92-99) Arterial Blood pH 7.47 (7.35-7.45) Arterial Blood pCO2 at Patient Temp 39 mmHg (35-46) Arterial Blood pO2 at Patient Temp 56 mmHg (65-108) Arterial Blood HCO3 27 mmol/L (21-28) Arterial Blood Base Excess 3 mmol/L (-3-3) FiO2 100 Test 06/05/20 09:32 06/05/20 12:17 06/05/20 18:09 06/05/20 21:23 Glucose (Fingerstick) 48 mg/dL (70-99) 162 mg/dL (70-99) 343 mg/dL (70-99) 294 mg/dL (70-99) Test 06/06/20 07:35 06/06/20 08:30 06/06/20 09:03 White Blood Count 14.8 x10^3/uL (4.0-11.0) Red Blood Count 3.54 x10^6/uL (3.50-5.40) Hemoglobin 9.7 g/dL (12.0-15.5) Hematocrit 29.8 % (36.0-47.0) Mean Corpuscular Volume 84 fL (79-100) Mean Corpuscular Hemoglobin 28 pg (25-35) Mean Corpuscular Hemoglobin Concent 33 g/dL (31-37) Red Cell Distribution Width 17.9 % (11.5-14.5) Platelet Count 254 x10^3/uL (140-400) Neutrophils (%) (Auto) 94 % (31-73) Lymphocytes (%) (Auto) 3 % (24-48) Monocytes (%) (Auto) 2 % (0-9) Eosinophils (%) (Auto) 0 % (0-3) Basophils (%) (Auto) 0 % (0-3) Neutrophils # (Auto) 13.9 x10^3/uL (1.8-7.7) Lymphocytes # (Auto) 0.5 x10^3/uL (1.0-4.8) Monocytes # (Auto) 0.3 x10^3/uL (0.0-1.1) Eosinophils # (Auto) 0.0 x10^3/uL (0.0-0.7) Basophils # (Auto) 0.0 x10^3/uL (0.0-0.2) Sodium Level 146 mmol/L (136-145) Potassium Level 4.0 mmol/L (3.5-5.1) Chloride Level 109 mmol/L (98-107) Carbon Dioxide Level 32 mmol/L (21-32) Anion Gap 5 (6-14) Blood Urea Nitrogen 34 mg/dL (7-20) Creatinine 0.8 mg/dL (0.6-1.0) Estimated GFR (Cockcroft-Gault) 71.3 BUN/Creatinine Ratio 43 (6-20) Glucose Level 145 mg/dL (70-99) Calcium Level 7.6 mg/dL (8.5-10.1) Total Bilirubin 0.4 mg/dL (0.2-1.0) Aspartate Amino Transf (AST/SGOT) 35 U/L (15-37) Alanine Aminotransferase (ALT/SGPT) 50 U/L (14-59) Alkaline Phosphatase 240 U/L (46-116) Total Protein 5.8 g/dL (6.4-8.2) Albumin 1.9 g/dL (3.4-5.0) Albumin/Globulin Ratio 0.5 (1.0-1.7) O2 Saturation 85 % (92-99) Arterial Blood pH 7.47 (7.35-7.45) Arterial Blood pCO2 at Patient Temp 45 mmHg (35-46) Arterial Blood pO2 at Patient Temp 52 mmHg (65-108) Arterial Blood HCO3 32 mmol/L (21-28) Arterial Blood Base Excess 7 mmol/L (-3-3) FiO2 75 Glucose (Fingerstick) 123 mg/dL (70-99) Laboratory Tests Test 06/05/20 12:17 06/05/20 18:09 06/05/20 21:23 06/06/20 07:35 Glucose (Fingerstick) 162 mg/dL (70-99) 343 mg/dL (70-99) 294 mg/dL (70-99) White Blood Count 14.8 x10^3/uL (4.0-11.0) Red Blood Count 3.54 x10^6/uL (3.50-5.40) Hemoglobin 9.7 g/dL (12.0-15.5) Hematocrit 29.8 % (36.0-47.0) Mean Corpuscular Volume 84 fL (79-100) Mean Corpuscular Hemoglobin 28 pg (25-35) Mean Corpuscular Hemoglobin Concent 33 g/dL (31-37) Red Cell Distribution Width 17.9 % (11.5-14.5) Platelet Count 254 x10^3/uL (140-400) Neutrophils (%) (Auto) 94 % (31-73) Lymphocytes (%) (Auto) 3 % (24-48) Monocytes (%) (Auto) 2 % (0-9) Eosinophils (%) (Auto) 0 % (0-3) Basophils (%) (Auto) 0 % (0-3) Neutrophils # (Auto) 13.9 x10^3/uL (1.8-7.7) Lymphocytes # (Auto) 0.5 x10^3/uL (1.0-4.8) Monocytes # (Auto) 0.3 x10^3/uL (0.0-1.1) Eosinophils # (Auto) 0.0 x10^3/uL (0.0-0.7) Basophils # (Auto) 0.0 x10^3/uL (0.0-0.2) Sodium Level 146 mmol/L (136-145) Potassium Level 4.0 mmol/L (3.5-5.1) Chloride Level 109 mmol/L (98-107) Carbon Dioxide Level 32 mmol/L (21-32) Anion Gap 5 (6-14) Blood Urea Nitrogen 34 mg/dL (7-20) Creatinine 0.8 mg/dL (0.6-1.0) Estimated GFR (Cockcroft-Gault) 71.3 BUN/Creatinine Ratio 43 (6-20) Glucose Level 145 mg/dL (70-99) Calcium Level 7.6 mg/dL (8.5-10.1) Total Bilirubin 0.4 mg/dL (0.2-1.0) Aspartate Amino Transf (AST/SGOT) 35 U/L (15-37) Alanine Aminotransferase (ALT/SGPT) 50 U/L (14-59) Alkaline Phosphatase 240 U/L (46-116) Total Protein 5.8 g/dL (6.4-8.2) Albumin 1.9 g/dL (3.4-5.0) Albumin/Globulin Ratio 0.5 (1.0-1.7) Test 06/06/20 08:30 06/06/20 09:03 O2 Saturation 85 % (92-99) Arterial Blood pH 7.47 (7.35-7.45) Arterial Blood pCO2 at Patient Temp 45 mmHg (35-46) Arterial Blood pO2 at Patient Temp 52 mmHg (65-108) Arterial Blood HCO3 32 mmol/L (21-28) Arterial Blood Base Excess 7 mmol/L (-3-3) FiO2 75 Glucose (Fingerstick) 123 mg/dL (70-99) Medications Active Scripts Medications Dose Route/Sig Max Daily Dose Days Date Category Actos (Pioglitazone Hcl) 45 Mg Tablet 1 Tab PO DAILY 05/18/20 Reported Diclofenac Sodium 75 Mg Tablet.dr 1 Tab PO BID 05/18/20 Reported Klor-Con 10 (Potassium Chloride) 10 Meq Tablet.er 1 Tab PO DAILY 30 05/18/20 Reported Metformin Hcl 1,000 Mg Tablet 1,000 Mg PO BIDWMEALS 05/18/20 Reported Omeprazole 20 Mg Capsule.dr 1 Cap PO DAILY 05/18/20 Reported Lisinopril-Hctz 20-25 Mg Tab (Lisinopril/Hydrochlorothiazide) 1 Each Tablet 1 Tab PO DAILY 05/18/20 Reported Aspirin Ec (Aspirin) 81 Mg Tablet.dr 1 Tab PO DAILY 05/18/20 Reported Hydralazine Hcl 100 Mg Tablet 1 Tab PO BID 05/18/20 Reported Metoprolol Tartrate 50 Mg Tablet 1 Tab PO BID 05/18/20 Reported Rosuvastatin Calcium 10 Mg Tablet 10 Mg PO DAILY 05/18/20 Reported Comments CXR : reviewed Moderate bilateral infiltrates could be secondary to atypical pneumonia or CHF. This appears similar to the prior study although there is improved aeration of the left lung base. Impression . IMPRESSION: 1. Acute hypoxic respiratory failure--worsening now vapotherm and prn BIPAP 2. Abnormal chest x-ray/ARDS 3. Fever, resolved 4. Hypoglycemic encephalopathy, resolved. 5. Severe protein-calorie malnutrition. 6. Mild azotemia. 7. SARS-CoV-2 negative x2, May 18, May 19 8. Negative blood cultures 9. Possible Boop 10. Negative CT angiogram for PE 11. Acute lung injury 11. SARS-CoV-2 positive on May 31/COVID-19 Impression: 1. No evidence of pulmonary embolism. 2. Mild left effusion and moderate bilateral infiltrates right worse than left. This could be ARDS or pulmonary edema or atypical pneumonia. Plan . Slowly improving we will continue current support, 02 titration bipap prn, setting reviewed D-dimer noted, continue Lovenox twice daily Continue antiviral, l SARS COVID 2, reported positive from 05/31, s/p Remdesivir cont steroid Diuresis, as needed ABX per ID DM per IM HTN per IM PT/OT am pcxr D/W RN and RT ANNE DARDEN MD Jun 06, 2020 11:53
--- NOTE | 2020-06-06 15:42 | PDOC ---
PROGRESS NOTES Chief Complaint Chief Complaint Acute hypoxic respiratory failure secondary to multifocal infiltrate/pleural effusions Sepsis Hyperthyroidism likely Graves Dz Hypoglycemic encephalopathy, IMPROVING Severe protein-calorie malnutrition. DM2, HTN urinary retention, pain COVID + 05/30 - COVID-19 negative on 05/18/2020 and 05/19/2020. Remdesivir started 06/01 Pneumonia. sputum cx: Resp gerri. Off vanc/Zosyn/doxy. Off Augmentin CHF Severe protein-calorie malnutrition Gram-positive cocci bacteremia, 05/18/2020, 1 out of 2 bottles, ID MICROCOCCUS SPECIES, likely a contaminant. History of Present Illness History of Present Illness 05/30 transfer to ICU for hypoxia, urinary retention, maldonado placed, had been striaight cath, 06/01, still hypoxia, some dyspena, on bipap COVID was pos. Started on remdisivir 06/02: Increased shortness of breath. On BIPAP overnight, transitioned to vapotherm. No cough/F/C/aches/nausea. Feels better. Family contacting nursing staff frequently. 06/03:Afebrile. Still with increased inflammatory markers. Overall feels better. Required Vapotherm during the day was on BiPAP overnight. Sodium up to 150 today, ABG 7.51/40 , placed back on BiPAP, no complaints except she is very tired. 06/04: Afebrile. WBC 16.4. Glucose 40 this morning. Asking to eat. On BIPAP. Remdesivir to initiate per pulm recommendations based on her clinical course. Change glargine from BID to QHS, cut dosing by 40%. 06/05: Afebrile, on Vapotherm. Hypoglycemic to 48 this morning despite insulin reduction. She is asking for milk. States she feels much better. Is somewhat confused disoriented today and location. Afebrile. WBC 14. On vapotherm. glucose normalized. No complaints. Is a bit confused. cc time 38 minutes Vitals Vitals Vital Signs Date Time Temp Pulse Resp B/P (MAP) Pulse Ox O2 Delivery O2 Flow Rate FiO2 06/06/20 12:16 92 06/06/20 12:00 VAPOTHERM 40.0 06/06/20 10:00 60 31 148/61 (90) 06/06/20 07:00 97.7 97.7 Physical Exam Physical Exam GENERAL: Propped up in bed, alert, calm - appears comfortable HEENT: On BiPAP NECK: Supple. LUNGS: CTA HEART: S1, S2. regular ABDOMEN: Obese, soft, nontender : Maldonado in place EXTREMITIES: trace edema lower extremities bilaterally. No cyanosis DERMATOLOGIC: Warm, dry. No generalized rash. NEUROLOGIC: Alert, responds appropriately General: Alert, Cooperative, No acute distress Heart: Regular rate, Normal S1, Normal S2, No murmurs Lungs: Clear Abdomen: Normal bowel sounds, Soft, No tenderness, No hepatosplenomegaly Labs LABS Laboratory Tests Test 06/05/20 18:09 06/05/20 21:23 06/06/20 07:35 06/06/20 08:30 Glucose (Fingerstick) 343 mg/dL (70-99) 294 mg/dL (70-99) White Blood Count 14.8 x10^3/uL (4.0-11.0) Red Blood Count 3.54 x10^6/uL (3.50-5.40) Hemoglobin 9.7 g/dL (12.0-15.5) Hematocrit 29.8 % (36.0-47.0) Mean Corpuscular Volume 84 fL (79-100) Mean Corpuscular Hemoglobin 28 pg (25-35) Mean Corpuscular Hemoglobin Concent 33 g/dL (31-37) Red Cell Distribution Width 17.9 % (11.5-14.5) Platelet Count 254 x10^3/uL (140-400) Neutrophils (%) (Auto) 94 % (31-73) Lymphocytes (%) (Auto) 3 % (24-48) Monocytes (%) (Auto) 2 % (0-9) Eosinophils (%) (Auto) 0 % (0-3) Basophils (%) (Auto) 0 % (0-3) Neutrophils # (Auto) 13.9 x10^3/uL (1.8-7.7) Lymphocytes # (Auto) 0.5 x10^3/uL (1.0-4.8) Monocytes # (Auto) 0.3 x10^3/uL (0.0-1.1) Eosinophils # (Auto) 0.0 x10^3/uL (0.0-0.7) Basophils # (Auto) 0.0 x10^3/uL (0.0-0.2) Sodium Level 146 mmol/L (136-145) Potassium Level 4.0 mmol/L (3.5-5.1) Chloride Level 109 mmol/L (98-107) Carbon Dioxide Level 32 mmol/L (21-32) Anion Gap 5 (6-14) Blood Urea Nitrogen 34 mg/dL (7-20) Creatinine 0.8 mg/dL (0.6-1.0) Estimated GFR (Cockcroft-Gault) 71.3 BUN/Creatinine Ratio 43 (6-20) Glucose Level 145 mg/dL (70-99) Calcium Level 7.6 mg/dL (8.5-10.1) Total Bilirubin 0.4 mg/dL (0.2-1.0) Aspartate Amino Transf (AST/SGOT) 35 U/L (15-37) Alanine Aminotransferase (ALT/SGPT) 50 U/L (14-59) Alkaline Phosphatase 240 U/L (46-116) Total Protein 5.8 g/dL (6.4-8.2) Albumin 1.9 g/dL (3.4-5.0) Albumin/Globulin Ratio 0.5 (1.0-1.7) O2 Saturation 85 % (92-99) Arterial Blood pH 7.47 (7.35-7.45) Arterial Blood pCO2 at Patient Temp 45 mmHg (35-46) Arterial Blood pO2 at Patient Temp 52 mmHg (65-108) Arterial Blood HCO3 32 mmol/L (21-28) Arterial Blood Base Excess 7 mmol/L (-3-3) FiO2 75 Test 06/06/20 09:03 06/06/20 13:03 Glucose (Fingerstick) 123 mg/dL (70-99) 142 mg/dL (70-99) Assessment and Plan Assessmemt and Plan Problems Medical Problems: (1) Altered mental status Status: Acute (2) Hypoglycemia Status: Acute (3) Hypothermia Status: Acute Comment Review of Relevant I have reviewed the following items kavya (where applicable) has been applied. Labs Laboratory Tests Test 06/04/20 17:37 06/04/20 21:23 06/05/20 09:00 06/05/20 09:32 Glucose (Fingerstick) 135 mg/dL (70-99) 152 mg/dL (70-99) 48 mg/dL (70-99) O2 Saturation 88 % (92-99) Arterial Blood pH 7.47 (7.35-7.45) Arterial Blood pCO2 at Patient Temp 39 mmHg (35-46) Arterial Blood pO2 at Patient Temp 56 mmHg (65-108) Arterial Blood HCO3 27 mmol/L (21-28) Arterial Blood Base Excess 3 mmol/L (-3-3) FiO2 100 Test 06/05/20 12:17 06/05/20 18:09 06/05/20 21:23 06/06/20 07:35 Glucose (Fingerstick) 162 mg/dL (70-99) 343 mg/dL (70-99) 294 mg/dL (70-99) White Blood Count 14.8 x10^3/uL (4.0-11.0) Red Blood Count 3.54 x10^6/uL (3.50-5.40) Hemoglobin 9.7 g/dL (12.0-15.5) Hematocrit 29.8 % (36.0-47.0) Mean Corpuscular Volume 84 fL (79-100) Mean Corpuscular Hemoglobin 28 pg (25-35) Mean Corpuscular Hemoglobin Concent 33 g/dL (31-37) Red Cell Distribution Width 17.9 % (11.5-14.5) Platelet Count 254 x10^3/uL (140-400) Neutrophils (%) (Auto) 94 % (31-73) Lymphocytes (%) (Auto) 3 % (24-48) Monocytes (%) (Auto) 2 % (0-9) Eosinophils (%) (Auto) 0 % (0-3) Basophils (%) (Auto) 0 % (0-3) Neutrophils # (Auto) 13.9 x10^3/uL (1.8-7.7) Lymphocytes # (Auto) 0.5 x10^3/uL (1.0-4.8) Monocytes # (Auto) 0.3 x10^3/uL (0.0-1.1) Eosinophils # (Auto) 0.0 x10^3/uL (0.0-0.7) Basophils # (Auto) 0.0 x10^3/uL (0.0-0.2) Sodium Level 146 mmol/L (136-145) Potassium Level 4.0 mmol/L (3.5-5.1) Chloride Level 109 mmol/L (98-107) Carbon Dioxide Level 32 mmol/L (21-32) Anion Gap 5 (6-14) Blood Urea Nitrogen 34 mg/dL (7-20) Creatinine 0.8 mg/dL (0.6-1.0) Estimated GFR (Cockcroft-Gault) 71.3 BUN/Creatinine Ratio 43 (6-20) Glucose Level 145 mg/dL (70-99) Calcium Level 7.6 mg/dL (8.5-10.1) Total Bilirubin 0.4 mg/dL (0.2-1.0) Aspartate Amino Transf (AST/SGOT) 35 U/L (15-37) Alanine Aminotransferase (ALT/SGPT) 50 U/L (14-59) Alkaline Phosphatase 240 U/L (46-116) Total Protein 5.8 g/dL (6.4-8.2) Albumin 1.9 g/dL (3.4-5.0) Albumin/Globulin Ratio 0.5 (1.0-1.7) Test 06/06/20 08:30 06/06/20 09:03 06/06/20 13:03 O2 Saturation 85 % (92-99) Arterial Blood pH 7.47 (7.35-7.45) Arterial Blood pCO2 at Patient Temp 45 mmHg (35-46) Arterial Blood pO2 at Patient Temp 52 mmHg (65-108) Arterial Blood HCO3 32 mmol/L (21-28) Arterial Blood Base Excess 7 mmol/L (-3-3) FiO2 75 Glucose (Fingerstick) 123 mg/dL (70-99) 142 mg/dL (70-99) Laboratory Tests Test 06/05/20 18:09 06/05/20 21:23 06/06/20 07:35 06/06/20 08:30 Glucose (Fingerstick) 343 mg/dL (70-99) 294 mg/dL (70-99) White Blood Count 14.8 x10^3/uL (4.0-11.0) Red Blood Count 3.54 x10^6/uL (3.50-5.40) Hemoglobin 9.7 g/dL (12.0-15.5) Hematocrit 29.8 % (36.0-47.0) Mean Corpuscular Volume 84 fL (79-100) Mean Corpuscular Hemoglobin 28 pg (25-35) Mean Corpuscular Hemoglobin Concent 33 g/dL (31-37) Red Cell Distribution Width 17.9 % (11.5-14.5) Platelet Count 254 x10^3/uL (140-400) Neutrophils (%) (Auto) 94 % (31-73) Lymphocytes (%) (Auto) 3 % (24-48) Monocytes (%) (Auto) 2 % (0-9) Eosinophils (%) (Auto) 0 % (0-3) Basophils (%) (Auto) 0 % (0-3) Neutrophils # (Auto) 13.9 x10^3/uL (1.8-7.7) Lymphocytes # (Auto) 0.5 x10^3/uL (1.0-4.8) Monocytes # (Auto) 0.3 x10^3/uL (0.0-1.1) Eosinophils # (Auto) 0.0 x10^3/uL (0.0-0.7) Basophils # (Auto) 0.0 x10^3/uL (0.0-0.2) Sodium Level 146 mmol/L (136-145) Potassium Level 4.0 mmol/L (3.5-5.1) Chloride Level 109 mmol/L (98-107) Carbon Dioxide Level 32 mmol/L (21-32) Anion Gap 5 (6-14) Blood Urea Nitrogen 34 mg/dL (7-20) Creatinine 0.8 mg/dL (0.6-1.0) Estimated GFR (Cockcroft-Gault) 71.3 BUN/Creatinine Ratio 43 (6-20) Glucose Level 145 mg/dL (70-99) Calcium Level 7.6 mg/dL (8.5-10.1) Total Bilirubin 0.4 mg/dL (0.2-1.0) Aspartate Amino Transf (AST/SGOT) 35 U/L (15-37) Alanine Aminotransferase (ALT/SGPT) 50 U/L (14-59) Alkaline Phosphatase 240 U/L (46-116) Total Protein 5.8 g/dL (6.4-8.2) Albumin 1.9 g/dL (3.4-5.0) Albumin/Globulin Ratio 0.5 (1.0-1.7) O2 Saturation 85 % (92-99) Arterial Blood pH 7.47 (7.35-7.45) Arterial Blood pCO2 at Patient Temp 45 mmHg (35-46) Arterial Blood pO2 at Patient Temp 52 mmHg (65-108) Arterial Blood HCO3 32 mmol/L (21-28) Arterial Blood Base Excess 7 mmol/L (-3-3) FiO2 75 Test 06/06/20 09:03 06/06/20 13:03 Glucose (Fingerstick) 123 mg/dL (70-99) 142 mg/dL (70-99) Microbiology 05/26/20 Gram Stain Evaluation - Final, Complete 05/26/20 Respiratory Culture - Final, Complete 05/24/20 Blood Culture - Final, Complete NO GROWTH AFTER 5 DAYS 05/18/20 Urine Culture - Final, Complete Medications Current Medications Sodium Chloride 1,000 ml @ 1,000 mls/hr 1X ONCE IV Last administered on 05/18/20at 09:29; Start 05/18/20 at 09:15; Stop 05/18/20 at 10:14; Status DC Ceftriaxone Sodium (Rocephin) 1 gm 1X ONCE IVP Last administered on 05/18/20at 09:28; Start 05/18/20 at 09:15; Stop 05/18/20 at 09:16; Status DC Ondansetron HCl (Zofran) 4 mg PRN Q8HRS PRN IV NAUSEA/VOMITING; Start 05/18/20 at 10:15; Stop 05/18/20 at 16:24; Status DC Acetaminophen (Tylenol) 650 mg PRN Q4HRS PRN PO FEVER > 100.3'F; Start 05/18/20 at 10:15; Stop 05/18/20 at 16:24; Status DC Ceftriaxone Sodium (Rocephin) 1 gm Q24H IVP Last administered on 05/24/20at 09:09; Start 05/19/20 at 09:00; Stop 05/24/20 at 18:10; Status DC Sodium Chloride (Normal Saline Flush) 3 ml QSHIFT PRN IV AFTER MEDS AND BLOOD DRAWS; Start 05/18/20 at 16:30 Sodium Chloride 1,000 ml @ 85 mls/hr [id number] IV Last administered on 05/24/20at 18:31; Start 05/18/20 at 16:20; Stop 05/25/20 at 09:44; Status DC Ondansetron HCl (Zofran) 4 mg PRN Q4HRS PRN IV NAUSEA/VOMITING; Start 05/18/20 at 16:30 Acetaminophen (Tylenol) 650 mg PRN Q4HRS PRN PO TEMP OVER 100.4F OR MILD PAIN Last administered on 05/30/20 20:09; Start 05/18/20 at 16:30 Acetaminophen (Tylenol Supp) 650 mg PRN Q4HRS PRN IA TEMP OVER 100.4F OR MILD PAIN; Start 05/18/20 at 16:30 Sodium Monofluorophosphate (Fleet Adult) 133 ml PRN DAILY PRN IA CONSTIPATION; Start 05/18/20 at 16:30 Docusate Sodium (Colace) 100 mg PRN BID PRN PO HARD STOOLS Last administered on 06/06/20at 08:40; Start 05/18/20 at 16:30 Albuterol Sulfate (Ventolin Neb Soln) 2.5 mg PRN Q4HRS PRN NEB SHORTNESS OF BREATH Last administered on 05/21/20at 18:14; Start 05/18/20 at 16:30; Stop 05/31/20 at 16:19; Status DC Guaifenesin (Robitussin) 200 mg PRN Q4HRS PRN PO COUGH Last administered on 05/23/20at 20:00; Start 05/18/20 at 16:30 Enoxaparin Sodium (Lovenox 40mg Syringe) 40 mg Q24H SQ Last administered on 05/31/20at 17:03; Start 05/18/20 at 17:00; Stop 06/01/20 at 10:27; Status DC Aspirin (Ecotrin) 81 mg DAILY PO Last administered on 06/06/20 08:40; Start 05/19/20 at 09:00 Metoprolol Tartrate (Lopressor) 50 mg BID PO Last administered on 05/21/20 09:16; Start 05/19/20 at 09:00; Stop 05/21/20 at 15:45; Status DC Diclofenac Sodium (Voltaren) 75 mg BID PO Last administered on 06/03/20at 20:29; Start 05/19/20 at 10:00; Stop 06/04/20 at 08:03; Status DC Hydralazine HCl (Apresoline) 100 mg BID PO Last administered on 05/21/20 09:15; Start 05/19/20 at 09:00; Stop 05/21/20 at 15:45; Status DC Lisinopril (Prinivil) 20 mg DAILY PO Last administered on 05/21/20at 09:16; Start 05/19/20 at 10:00; Stop 05/21/20 at 15:45; Status DC Pantoprazole Sodium (Protonix) 40 mg DAILYAC PO Last administered on 06/06/20 08:38; Start 05/19/20 at 10:00 Atorvastatin Calcium (Lipitor) 40 mg QHS PO Last administered on 06/05/20at 21:13; Start 05/19/20 at 21:00 Hydrochlorothiazide (Hydrodiuril) 25 mg DAILY PO Last administered on 05/23/20at 08:59; Start 05/19/20 at 10:00; Stop 05/23/20 at 10:22; Status DC Lactobacillus Rhamnosus (Culturelle) 1 cap BID PO Last administered on 06/06/20 08:40; Start 05/19/20 at 21:00 Insulin Human Lispro (HumaLOG) 0-7 UNITS TIDWMEALS SQ Last administered on 15:21; Start 05/19/20 at 17:00 Dextrose (Dextrose 50%-Water Syringe) 12.5 gm PRN Q15MIN PRN IV SEE COMMENTS Last administered on 06/04/20at 06:52; Start 05/19/20 at 14:15 Methimazole (Tapazole) 5 mg BID PO Last administered on 06/06/20 08:39; Start 05/20/20 at 10:00 Insulin Glargine (Lantus Syringe) 5 unit DAILY SQ Last administered on 05/22/20at 09:15; Start 05/21/20 at 09:00; Stop 05/22/20 at 21:05; Status DC Doxycycline Hyclate (Vibra-Tab) 100 mg BID PO Last administered on 05/28/20at 08:53; Start 05/21/20 at 15:00; Stop 05/28/20 at 15:02; Status DC Furosemide (Lasix) 20 mg 1X ONCE IVP Last administered on 05/21/20at 17:05; Start 05/21/20 at 17:00; Stop 05/21/20 at 17:01; Status DC Sterile Water (WATER for RESP) 1,000 ml CONT PRN INH VIA VAPOTHERM DEVICE Last administered on 05/23/20at 16:26; Start 05/21/20 at 17:15; Stop 05/30/20 at 12:58; Status DC Albuterol Sulfate (Ventolin Neb Soln) 2.5 mg Q4HRS NEB Last administered on 05/30/20at 15:45; Start 05/21/20 at 20:00; Stop 05/31/20 at 16:19; Status DC Vancomycin HCl (Vanco Per Pharmacy) 1 each PRN DAILY PRN MC SEE COMMENTS Last administered on 05/25/20at 23:52; Start 05/22/20 at 09:00; Stop 05/27/20 at 16:29; Status DC Vancomycin HCl 2 gm/Sodium Chloride 500 ml @ 250 mls/hr 1X ONCE IV Last admi nistered on 05/22/20at 09:05; Start 05/22/20 at 09:00; Stop 05/22/20 at 10:59; Status DC Vancomycin HCl 1.25 gm/Sodium Chloride 250 ml @ 167 mls/hr Q24H IV Last administered on 05/23/20at 09:00; Start 05/23/20 at 09:00; Stop 05/24/20 at 10:05; Status DC Vancomycin HCl (Vancomycin Trough Level) 1 each 1X ONCE MC Last administered on 05/24/20at 08:30; Start 05/24/20 at 08:30; Stop 05/24/20 at 08:31; Status DC Methylprednisolone Sodium Succinate (SOLU-Medrol 125MG VIAL) 80 mg Q8HRS IV Last administered on 05/27/20at 06:04; Start 05/22/20 at 14:00; Stop 05/27/20 at 12:02; Status DC Insulin Glargine (Lantus Syringe) 10 unit BID SQ Last administered on 05/23/20at 09:11; Start 05/22/20 at 21:00; Stop 05/23/20 at 20:17; Status DC Metoprolol Tartrate (Lopressor) 50 mg BID PO Last administered on 06/05/20at 21:16; Start 05/23/20 at 10:30 Hydrochlorothiazide (Microzide) 12.5 mg DAILY PO Last administered on 06/06/20at 08:38; Start 05/24/20 at 09:00 Potassium Chloride (Klor-Con) 40 meq Q2H PO Last administered on 05/23/20at 14:58; Start 05/23/20 at 10:30; Stop 05/23/20 at 14:31; Status DC Lisinopril (Prinivil) 40 mg DAILY PO Last administered on 06/06/20at 08:40; Start 05/23/20 at 10:30 Hydralazine HCl (Apresoline) 100 mg BID PO Last administered on 06/06/20at 08:38; Start 05/23/20 at 10:30 Insulin Glargine (Lantus Syringe) 10 unit BID SQ Last administered on 05/24/20at 09:14; Start 05/23/20 at 21:00; Stop 05/24/20 at 11:28; Status DC Vancomycin HCl 1.25 gm/Sodium Chloride 250 ml @ 167 mls/hr Q12H IV Last administered on 05/27/20at 08:21; Start 05/24/20 at 10:30; Stop 05/27/20 at 16:26; Status DC Vancomycin HCl (Vancomycin Trough Level) 1 each 1X ONCE MC Last administered on 05/25/20at 22:00; Start 05/25/20 at 22:00; Stop 05/25/20 at 22:01; Status DC Insulin Glargine (Lantus Syringe) 12 unit BID SQ ; Start 05/24/20 at 21:00; Stop 05/24/20 at 17:27; Status DC Insulin Glargine (Lantus Syringe) 15 unit BID SQ Last administered on 05/25/20at 08:19; Start 05/24/20 at 21:00; Stop 05/25/20 at 09:47; Status DC Insulin Human Lispro (HumaLOG) 7 units 1X ONCE SQ Last administered on 05/24/20at 18:01; Start 05/24/20 at 17:30; Stop 05/24/20 at 17:31; Status DC Piperacillin Sod/ Tazobactam Sod 3.375 gm/Sodium Chloride 50 ml @ 100 mls/hr Q6HRS IV Last administered on 05/28/20at 12:09; Start 05/24/20 at 18:30; Stop 05/28/20 at 15:01; Status DC Insulin Human Lispro (HumaLOG) 11 units 1X SQ ; Start 05/24/20 at 21:30; Status Cancel Insulin Human Lispro (HumaLOG) 11 units 1X ONCE SQ Last administered on 05/24/20at 22:25; Start 05/24/20 at 22:00; Stop 05/24/20 at 22:01; Status DC Furosemide (Lasix) 20 mg 1X ONCE IVP Last administered on 05/25/20at 11:12; S tart 05/25/20 at 10:00; Stop 05/25/20 at 10:01; Status DC Insulin Glargine (Lantus Syringe) 18 unit BID SQ Last administered on 05/27/20at 08:33; Start 05/25/20 at 21:00; Stop 05/27/20 at 12:00; Status DC Midazolam HCl (Versed) 2 mg 1X ONCE IV ; Start 05/25/20 at 10:30; Stop 05/25/20 at 10:31; Status Cancel Fentanyl Citrate (Fentanyl 2ml Vial) 50 mcg 1X ONCE IM ; Start 05/25/20 at 10:30; Stop 05/25/20 at 10:31; Status Cancel Hydralazine HCl (Apresoline Inj) 10 mg PRN Q4HRS PRN IVP ELEVATED BP, SEE COMME NTS Last administered on 05/29/20at 11:06; Start 05/25/20 at 16:15 Potassium Chloride (Klor-Con) 40 meq 1X ONCE PO Last administered on 05/26/20at 18:43; Start 05/26/20 at 18:30; Stop 05/26/20 at 18:31; Status DC Insulin Glargine (Lantus Syringe) 22 unit BID SQ Last administered on 05/29/20at 08:24; Start 05/27/20 at 21:00; Stop 05/29/20 at 12:14; Status DC Methylprednisolone Sodium Succinate (SOLU-Medrol 125MG VIAL) 40 mg Q12HR IV Last administered on 05/28/20at 08:52; Start 05/27/20 at 19:00; Stop 05/28/20 at 13: 37; Status DC Nystatin (Nystatin Oral Susp) 5 ml [id number] Last administered on 06/06/20at 15:18; Start 05/27/20 at 17:00 Insulin Human Lispro (HumaLOG) 20 units 1X ONCE SQ Last administered on 05/27/20at 17:32; Start 05/27/20 at 17:30; Stop 05/27/20 at 17:31; Status DC Methylprednisolone Sodium Succinate (SOLU-Medrol 40MG VIAL) 40 mg Q12HR IV Last administered on 05/30/20at 08:34; Start 05/28/20 at 21:00; Stop 05/30/20 at 14:10; Status DC Amoxicillin/ Clavulanate Potassium (Augmentin 875/ 125mg) 1 tab BID PO Last administered on 05/31/20at 19:53; Start 05/28/20 at 21:00; Stop 05/31/20 at 21:01; Status DC Amlodipine Besylate (Norvasc) 2.5 mg DAILY PO Last administered on 06/06/20at 09:00; Start 05/29/20 at 11:45 Furosemide (Lasix) 20 mg 1X ONCE PO Last administered on 05/29/20at 12:40; Start 05/29/20 at 12:30; Stop 05/29/20 at 12:31; Status DC Potassium Chloride (Klor-Con) 20 meq 1X ONCE PO Last administered on 05/29/20at 12:40; Start 05/29/20 at 12:30; Stop 05/29/20 at 12:31; Status DC Insulin Glargine (Lantus Syringe) 25 unit BID SQ Last administered on 06/04/20at 07:58; Start 05/29/20 at 21:00; Stop 06/04/20 at 09:20; Status DC Furosemide (Lasix) 40 mg 1X ONCE IVP Last administered on 05/30/20at 11:47; Start 05/30/20 at 11:15; Stop 05/30/20 at 11:16; Status DC Iohexol (Omnipaque 350 Mg/ml) 100 ml 1X ONCE IV Last administered on 05/30/20at 12:00; Start 05/30/20 at 12:00; Stop 05/30/20 at 12:01; Status DC Info (CONTRAST GIVEN -- Rx MONITORING) 1 each PRN DAILY PRN MC SEE COMMENTS; Start 05/30/20 at 12:15; Stop 06/01/20 at 12:14; Status DC Sterile Water (WATER for RESP) 1,000 ml CONT PRN INH VIA VAPOTHERM DEVICE Last administered on 06/05/20at 16:35; Start 05/30/20 at 13:00 Methylprednisolone Sodium Succinate (SOLU-Medrol 125MG VIAL) 125 mg Q12HR IV Last administered on 06/06/20at 08:37; Start 05/30/20 at 14:15 Enoxaparin Sodium (Lovenox 40mg Syringe) 40 mg BID SQ Last administered on 06/06/20at 08:37; Start 06/01/20 at 21:00 Non-Formulary Medication 1 ea/ Sodium Chloride 210 ml @ 210 mls/hr 1X ONCE IV Last administered on 06/01/20at 17:11; Start 06/01/20 at 16:30; Stop 06/01/20 at 17:29; Status DC Non-Formulary Medication 1 ea/ Sodium Chloride 230 ml @ 460 mls/hr DAILY IV Last administered on 06/05/20at 17:38; Start 06/02/20 at 09:00; Stop 06/05/20 at 09:29; Status DC Potassium Chloride (Klor-Con) 40 meq 1X ONCE PO Last administered on 06/03/20at 09:51; Start 06/03/20 at 08:00; Stop 06/03/20 at 08:01; Status DC Diclofenac Sodium (Voltaren) 75 mg BID PO ; Start 06/04/20 at 08:03; Stop 06/04/20 at 08:04; Status DC Diclofenac Sodium (Voltaren) 75 mg BID PO Last administered on 06/06/20at 11:10; Start 06/04/20 at 09:00 Insulin Glargine (Lantus Syringe) 30 unit QHS SQ Last administered on 06/04/20at 21:14; Start 06/04/20 at 21:00; Stop 06/05/20 at 10:25; Status DC Insulin Glargine (Lantus Syringe) 15 unit QHS SQ Last administered on 06/05/20at 21:21; Start 06/05/20 at 21:00 Active Scripts Active Reported Actos (Pioglitazone Hcl) 45 Mg Tablet 1 Tab PO DAILY 30 Days Diclofenac Sodium 75 Mg Tablet.dr 1 Tab PO BID Klor-Con 10 (Potassium Chloride) 10 Meq Tablet.er 1 Tab PO DAILY 30 Days Metformin Hcl 1,000 Mg Tablet 1,000 Mg PO BIDWMEALS Omeprazole 20 Mg Capsule.dr 1 Cap PO DAILY Lisinopril-Hctz 20-25 Mg Tab (Lisinopril/Hydrochlorothiazide) 1 Each Tablet 1 Tab PO DAILY Aspirin Ec (Aspirin) 81 Mg Tablet.dr 1 Tab PO DAILY Hydralazine Hcl 100 Mg Tablet 1 Tab PO BID Metoprolol Tartrate 50 Mg Tablet 1 Tab PO BID Rosuvastatin Calcium 10 Mg Tablet 10 Mg PO DAILY Vitals/I & O Vital Sign - Last 24 Hours 06/05/20 06/05/20 06/05/20 06/05/20 16:00 16:00 16:33 17:00 Temp 97.9 97.9 Pulse 80 80 Resp 32 23 B/P (MAP) 140/69 (92) 153/61 (91) Pulse Ox 99 94 92 O2 Delivery Nasal Cannula VAPOTHERM O2 Flow Rate 40.0 40.0 06/05/20 06/05/20 06/05/20 06/05/20 18:00 19:00 20:00 20:00 Temp 98.1 98.1 Pulse 86 70 66 Resp 24 38 33 B/P (MAP) 155/66 (95) 156/64 (94) 156/67 (96) Pulse Ox 92 91 92 O2 Delivery Vapotherm Vapotherm Nasal Cannula O2 Flow Rate 40.0 40.0 40.0 06/05/20 06/05/20 06/05/20 06/05/20 20:00 20:03 21:00 21:14 Pulse 64 70 Resp 34 B/P (MAP) 153/63 (93) 156/64 Pulse Ox 90 93 O2 Delivery VAPOTHERM BiPAP/CPAP O2 Flow Rate 40.0 40.0 06/05/20 06/05/20 06/05/20 06/06/20 21:16 22:00 23:00 00:01 Temp 98.8 98.8 Pulse 70 56 50 56 Resp 29 32 49 B/P (MAP) 156/64 155/63 (93) 156/63 (94) 167/72 (103) Pulse Ox 98 99 99 O2 Delivery BiPAP/CPAP BiPAP/CPAP BiPAP/CPAP 06/06/20 06/06/20 06/06/20 06/06/20 00:01 00:01 00:30 01:00 Pulse 46 Resp 24 B/P (MAP) 149/54 (85) Pulse Ox 100 O2 Delivery Bi-pap BiPAP/CPAP BiPAP/CPAP O2 Flow Rate 40.0 06/06/20 06/06/20 06/06/20 06/06/20 02:00 03:00 04:00 04:00 Temp 98.2 98.2 Pulse 46 41 45 Resp 22 21 44 B/P (MAP) 152/61 (91) 158/63 (94) 146/63 (90) Pulse Ox 99 100 95 O2 Delivery BiPAP/CPAP BiPAP/CPAP Bi-pap BiPAP/CPAP 06/06/20 06/06/20 06/06/20 06/06/20 04:00 04:16 05:00 06:00 Pulse 43 44 Resp 22 21 B/P (MAP) 146/60 (88) 167/65 (99) Pulse Ox 95 98 96 O2 Delivery BiPAP/CPAP BiPAP/CPAP BiPAP/CPAP O2 Flow Rate 40.0 06/06/20 06/06/20 06/06/20 06/06/20 07:00 08:00 08:00 08:00 Temp 97.7 97.7 Pulse 48 46 Resp 22 21 B/P (MAP) 156/64 (94) 156/66 (96) Pulse Ox 94 91 O2 Delivery BiPAP/CPAP Bi-pap BiPAP/CPAP O2 Flow Rate 40.0 06/06/20 06/06/20 06/06/20 06/06/20 08:30 08:38 08:40 09:00 Pulse 55 55 52 Resp 30 B/P (MAP) 156/66 156/65 163/69 (100) Pulse Ox 93 91 O2 Delivery BiPAP/CPAP vapotherm O2 Flow Rate 40.0 06/06/20 06/06/20 06/06/20 06/06/20 09:00 09:00 10:00 12:00 Pulse 50 55 60 Resp 31 B/P (MAP) 156/65 156/65 148/61 (90) Pulse Ox 92 O2 Delivery vapotherm Bi-pap O2 Flow Rate 40.0 06/06/20 06/06/20 12:00 12:16 Pulse Ox 94 92 O2 Delivery VAPOTHERM O2 Flow Rate 40.0 Intake and Output 06/05/20 06/05/20 06/06/20 15:00 23:00 07:00 Intake Total 270 ml 50 ml 0 ml Output Total 325 ml 1100 ml 200 ml Balance -55 ml -1050 ml -200 ml Justicifation of Admission Dx: Justifications for Admission: Justification of Admission Dx: Yes Altered Mental Status: Altered Mental Status REZA RUST MD Jun 06, 2020 15:42
--- NOTE | 2020-06-06 18:16 | NUR ---
7A slow/steady movement from bed to chair- arthritic pain? Appear to rest better at longer intervals when in chair today. BG lower past 12 H . Attempted Spo2 change ffrom 100% to 80 % w poor tolerance. Desat after 2-3 H to lowest % 70. R T increased Fio2 back to 100%. Denied c/o dyspnea ,SOA on lower concentration. Continue wPOC at this time . Phone communication w family ie patient status
[2020-06-06] MEDS: ATORVASTATIN CALCIUM 40 MG TABLET. PO SCH (22:18)
[2020-06-06] MEDS: INSULIN GLARGINE SYRINGE. SQ SCH (23:17)
[2020-06-07] VITALS (25 sets, daily range): BP systolic 135–198; BP diastolic 56–86
--- NOTE | 2020-06-07 06:16 | RAD ---
AP portable chest radiograph 06/07/2020 Clinical History: Respiratory failure. An AP erect portable digital radiograph of the chest was obtained. Comparison study is dated 05/30/2020. The cardiac silhouette is mildly enlarged. The thoracic aorta is mildly tortuous. Bilateral perihilar infiltrates are seen which have improved slightly since the previous examination. No pneumothorax or large pleural effusion is seen. The osseous structures are unchanged. Impression: Slight improvement in the bilateral perihilar infiltrates. Electronically signed by: Karel Rosa MD (06/07/2020 6:13 AM) [id number]
--- NOTE | 2020-06-07 08:27 | PDOC ---
PULMONARY PROGRESS NOTES Subjective Patient feels less short of air, on Vapotherm Vitals Vital Signs Date Time Temp Pulse Resp B/P (MAP) Pulse Ox O2 Delivery O2 Flow Rate FiO2 06/07/20 06:00 52 23 170/86 (114) 97 BiPAP/CPAP 06/07/20 04:00 97.8 97.8 06/07/20 04:00 40.0 ROS: No Nausea, No Chest Pain, No Abdominal Pain General: Alert Lungs: Clear Cardiovascular: S1, S2 Abdomen: Soft Neuro Exam: Alert Extremities: Other (+2 BLE ) Skin: Warm Labs Laboratory Tests Test 06/05/20 09:00 06/05/20 09:32 06/05/20 12:17 06/05/20 18:09 O2 Saturation 88 % (92-99) Arterial Blood pH 7.47 (7.35-7.45) Arterial Blood pCO2 at Patient Temp 39 mmHg (35-46) Arterial Blood pO2 at Patient Temp 56 mmHg (65-108) Arterial Blood HCO3 27 mmol/L (21-28) Arterial Blood Base Excess 3 mmol/L (-3-3) FiO2 100 Glucose (Fingerstick) 48 mg/dL (70-99) 162 mg/dL (70-99) 343 mg/dL (70-99) Test 06/05/20 21:23 06/06/20 07:35 06/06/20 08:30 06/06/20 09:03 Glucose (Fingerstick) 294 mg/dL (70-99) 123 mg/dL (70-99) White Blood Count 14.8 x10^3/uL (4.0-11.0) Red Blood Count 3.54 x10^6/uL (3.50-5.40) Hemoglobin 9.7 g/dL (12.0-15.5) Hematocrit 29.8 % (36.0-47.0) Mean Corpuscular Volume 84 fL (79-100) Mean Corpuscular Hemoglobin 28 pg (25-35) Mean Corpuscular Hemoglobin Concent 33 g/dL (31-37) Red Cell Distribution Width 17.9 % (11.5-14.5) Platelet Count 254 x10^3/uL (140-400) Neutrophils (%) (Auto) 94 % (31-73) Lymphocytes (%) (Auto) 3 % (24-48) Monocytes (%) (Auto) 2 % (0-9) Eosinophils (%) (Auto) 0 % (0-3) Basophils (%) (Auto) 0 % (0-3) Neutrophils # (Auto) 13.9 x10^3/uL (1.8-7.7) Lymphocytes # (Auto) 0.5 x10^3/uL (1.0-4.8) Monocytes # (Auto) 0.3 x10^3/uL (0.0-1.1) Eosinophils # (Auto) 0.0 x10^3/uL (0.0-0.7) Basophils # (Auto) 0.0 x10^3/uL (0.0-0.2) Sodium Level 146 mmol/L (136-145) Potassium Level 4.0 mmol/L (3.5-5.1) Chloride Level 109 mmol/L (98-107) Carbon Dioxide Level 32 mmol/L (21-32) Anion Gap 5 (6-14) Blood Urea Nitrogen 34 mg/dL (7-20) Creatinine 0.8 mg/dL (0.6-1.0) Estimated GFR (Cockcroft-Gault) 71.3 BUN/Creatinine Ratio 43 (6-20) Glucose Level 145 mg/dL (70-99) Calcium Level 7.6 mg/dL (8.5-10.1) Total Bilirubin 0.4 mg/dL (0.2-1.0) Aspartate Amino Transf (AST/SGOT) 35 U/L (15-37) Alanine Aminotransferase (ALT/SGPT) 50 U/L (14-59) Alkaline Phosphatase 240 U/L (46-116) Total Protein 5.8 g/dL (6.4-8.2) Albumin 1.9 g/dL (3.4-5.0) Albumin/Globulin Ratio 0.5 (1.0-1.7) O2 Saturation 85 % (92-99) Arterial Blood pH 7.47 (7.35-7.45) Arterial Blood pCO2 at Patient Temp 45 mmHg (35-46) Arterial Blood pO2 at Patient Temp 52 mmHg (65-108) Arterial Blood HCO3 32 mmol/L (21-28) Arterial Blood Base Excess 7 mmol/L (-3-3) FiO2 75 Test 7/12/20 13:03 06/06/20 17:44 06/06/20 22:36 Glucose (Fingerstick) 142 mg/dL (70-99) 129 mg/dL (70-99) 339 mg/dL (70-99) Laboratory Tests Test 06/06/20 08:30 06/06/20 09:03 06/06/20 13:03 06/06/20 17:44 O2 Saturation 85 % (92-99) Arterial Blood pH 7.47 (7.35-7.45) Arterial Blood pCO2 at Patient Temp 45 mmHg (35-46) Arterial Blood pO2 at Patient Temp 52 mmHg (65-108) Arterial Blood HCO3 32 mmol/L (21-28) Arterial Blood Base Excess 7 mmol/L (-3-3) FiO2 75 Glucose (Fingerstick) 123 mg/dL (70-99) 142 mg/dL (70-99) 129 mg/dL (70-99) Test 06/06/20 22:36 Glucose (Fingerstick) 339 mg/dL (70-99) Medications Active Scripts Medications Dose Route/Sig Max Daily Dose Days Date Category Actos (Pioglitazone Hcl) 45 Mg Tablet 1 Tab PO DAILY 30 05/18/20 Reported Diclofenac Sodium 75 Mg Tablet.dr 1 Tab PO BID 05/18/20 Reported Klor-Con 10 (Potassium Chloride) 10 Meq Tablet.er 1 Tab PO DAILY 30 05/18/20 Reported Metformin Hcl 1,000 Mg Tablet 1,000 Mg PO BIDWMEALS 05/18/20 Reported Omeprazole 20 Mg Capsule.dr 1 Cap PO DAILY 05/18/20 Reported Lisinopril-Hctz 20-25 Mg Tab (Lisinopril/Hydrochlorothiazide) 1 Each Tablet 1 Tab PO DAILY 05/18/20 Reported Aspirin Ec (Aspirin) 81 Mg Tablet.dr 1 Tab PO DAILY 05/18/20 Reported Hydralazine Hcl 100 Mg Tablet 1 Tab PO BID 05/18/20 Reported Metoprolol Tartrate 50 Mg Tablet 1 Tab PO BID 05/18/20 Reported Rosuvastatin Calcium 10 Mg Tablet 10 Mg PO DAILY 05/18/20 Reported Comments CXR : reviewed Moderate bilateral infiltrates could be secondary to atypical pneumonia or CHF. This appears similar to the prior study although there is improved aeration of the left lung base. Impression . IMPRESSION: 1. Acute hypoxic respiratory failure secondary to COVID-19 2. Abnormal chest x-ray/ARDS 3. Fever, resolved 4. Hypoglycemic encephalopathy, resolved. 5. Severe protein-calorie malnutrition. 6. Mild azotemia. 7. SARS-CoV-2 negative x2, May 18, May 19 8. Negative blood cultures 9. Possible Boop 10. Negative CT angiogram for PE 11. Acute lung injury 11. SARS-CoV-2 positive on May 31/COVID-19 Impression: 1. No evidence of pulmonary embolism. 2. Mild left effusion and moderate bilateral infiltrates right worse than left. This could be ARDS or pulmonary edema or atypical pneumonia. Plan . Will continue current support PRN BiPAP D-dimer noted, continue Lovenox twice daily Continue antiviral, l SARS COVID 2, reported positive from 05/31, s/p Remdesivir cont steroid Diuresis, as needed ABX per ID DM per IM HTN per IM PT/OT am pcxr D/W RN and RT KING WHITTINGTON MD Jun 07, 2020 08:27
[2020-06-07 08:28] LABS: BASE EXCESS ABG 5 mmol/L (-3-3); HCO3 ABG 29 mmol/L (21-28); PCO2 ABG 42 mmHg (35-46); PO2 ABG 78 mmHg (65-108); SAT O2 ABG 95 % (92-99)
--- NOTE | 2020-06-07 08:29 | PDOC ---
Infectious Disease Note Subjective Subjective pt is awake, says breathing ok ROS ROS no n/v/d/sob Vital Sign Vital Signs Vital Signs Date Time Temp Pulse Resp B/P (MAP) Pulse Ox O2 Delivery O2 Flow Rate FiO2 06/07/20 06:00 52 23 170/86 (114) 97 BiPAP/CPAP 06/07/20 04:00 97.8 97.8 06/07/20 04:00 40.0 Physical Exam PHYSICAL EXAM GENERAL: Propped up in bed, alert, calm - appears comfortable HEENT: On BiPAP NECK: Supple. LUNGS: CTA HEART: S1, S2. regular ABDOMEN: Obese, soft, nontender : Galan in place EXTREMITIES: trace edema lower extremities bilaterally. No cyanosis DERMATOLOGIC: Warm, dry. No generalized rash. NEUROLOGIC: Alert, responds appropriately Labs Lab Laboratory Tests Test 06/06/20 08:30 06/06/20 09:03 06/06/20 13:03 06/06/20 17:44 O2 Saturation 85 % (92-99) Arterial Blood pH 7.47 (7.35-7.45) Arterial Blood pCO2 at Patient Temp 45 mmHg (35-46) Arterial Blood pO2 at Patient Temp 52 mmHg (65-108) Arterial Blood HCO3 32 mmol/L (21-28) Arterial Blood Base Excess 7 mmol/L (-3-3) FiO2 75 Glucose (Fingerstick) 123 mg/dL (70-99) 142 mg/dL (70-99) 129 mg/dL (70-99) Test 06/06/20 22:36 Glucose (Fingerstick) 339 mg/dL (70-99) Micro Microbiology 05/26/20 Gram Stain Evaluation - Final, Complete 05/26/20 Respiratory Culture - Final, Complete 05/24/20 Blood Culture - Final, Complete NO GROWTH AFTER 5 DAYS 05/18/20 Urine Culture - Final, Complete Objective Assessment COVID + 05/30 - COVID-19 negative on 05/18/2020 and 05/19/2020. Remdesivir started 06/01 Acute hypoxic respiratory failure - on Bipap Pneumonia. sputum cx: Resp gerri. Off vanc/Zosyn/doxy. Off Augmentin Fever - now resolved Leukocytosis, on steroids. CHF Hypoglycemic encephalopathy, resolved. Diabetes. Hypertension. Severe protein-calorie malnutrition. Gram-positive cocci bacteremia, 05/18/2020, 1 out of 2 bottles, ID MICROCOCCUS SPECIES, likely a contaminant. Plan Plan of Care Steroids/Remdesivir per pulm off abx Nystatin SWSW, 05/27 Maintain aspiration precautions Supportive care D/w nursing BYRON REDMOND MD Jun 07, 2020 08:29
[2020-06-07] MEDS: DICLOFENAC SODIUM 25 MG TABLET.DR PO SCH ×2 (09:00→20:49)
[2020-06-07] MEDS: NYSTATIN 100,000 UNITS/ML 5 ML ORAL.SUSP. SWSW SCH ×4 (09:07→20:58)
[2020-06-07] MEDS: ASPIRIN ENTERIC COATED 81 MG TABLET.DR. PO SCH (09:08)
[2020-06-07] MEDS: ENOXAPARIN 40 MG/0.4 ML SYRINGE. SQ SCH ×2 (09:08→20:48)
[2020-06-07] MEDS: methIMAzole 10 MG TABLET PO SCH ×2 (09:08→20:48)
[2020-06-07] MEDS: LACTOBACILLUS RHAMNOSUS GG 1 CAPSULE. PO SCH ×2 (09:08→20:49)
[2020-06-07] MEDS: LISINOPRIL 20 MG TABLET PO SCH (09:09)
[2020-06-07] MEDS: hydroCHLOROthiazide 12.5 MG CAPSULE PO SCH (09:09)
[2020-06-07] MEDS: PANTOPRAZOLE 40 MG TABLET.DR. PO SCH (09:09)
[2020-06-07] MEDS: amLODIPine BESYLATE 5 MG TABLET PO SCH (09:09)
[2020-06-07] MEDS: METOPROLOL TART IMMED RELEASE 50 MG TABLET. PO SCH ×2 (09:10→20:48)
[2020-06-07] MEDS: methylPREDNISolone SOD SUCC PF 125 MG/2 ML VIAL. IV SCH ×2 (09:10→20:48)
[2020-06-07] MEDS: INSULIN LISPRO 300 UNITS/3 ML VIAL. SQ SCH ×3 (09:37→17:31)
--- NOTE | 2020-06-07 10:06 | PDOC ---
PROGRESS NOTES Assessment Problems Medical Problems: (1) Altered mental status Status: Acute (2) Hypoglycemia Status: Acute (3) Hypothermia Status: Acute Encephalopathy due to hypoglycemia and hypothermia, no evidence of any acute stroke, the CT finding is not clinically relevant and does not merit any additional attention especially with her lack of symptoms and normal examination. Moreover, this would be expected in someone who has had hypertension and diabetes for several years. Ruled out for COVID, has pulmonary infiltrate, under treatment for pneumonia Plan No additional neurological studies needed. I had signed off, but given critical illness, I will keep an eye on her with you and follow at intervals Subjective no complaints Objective Vital Signs Date Time Temp Pulse Resp B/P (MAP) Pulse Ox O2 Delivery O2 Flow Rate FiO2 06/07/20 09:10 54 165/68 06/07/20 09:00 23 95 Vapotherm 40.0 06/07/20 08:00 97.8 97.8 Intake and Output 06/07/20 07:00 Intake Total 1250 ml Output Total 1210 ml Balance 40 ml Intake Oral 1250 ml Output Urine Total 1210 ml PHYSICAL EXAM Alert. Oriented to time, place and person. Speaks only Turkish. PERRL. EOMI. CN: no focal findings. Muscle tone: normal. Muscle strength: 5/5 DTR: 2+ Plantar reflex: flexor Gait: not examined in bed. Sensory exam: no abnormal findings. No cerebellar signs elicited. Review of Relevant I have reviewed the following items kavya (where applicable) has been applied. Labs Laboratory Tests Test 06/05/20 12:17 06/05/20 18:09 06/05/20 21:23 06/06/20 07:35 Glucose (Fingerstick) 162 mg/dL (70-99) 343 mg/dL (70-99) 294 mg/dL (70-99) White Blood Count 14.8 x10^3/uL (4.0-11.0) Red Blood Count 3.54 x10^6/uL (3.50-5.40) Hemoglobin 9.7 g/dL (12.0-15.5) Hematocrit 29.8 % (36.0-47.0) Mean Corpuscular Volume 84 fL (79-100) Mean Corpuscular Hemoglobin 28 pg (25-35) Mean Corpuscular Hemoglobin Concent 33 g/dL (31-37) Red Cell Distribution Width 17.9 % (11.5-14.5) Platelet Count 254 x10^3/uL (140-400) Neutrophils (%) (Auto) 94 % (31-73) Lymphocytes (%) (Auto) 3 % (24-48) Monocytes (%) (Auto) 2 % (0-9) Eosinophils (%) (Auto) 0 % (0-3) Basophils (%) (Auto) 0 % (0-3) Neutrophils # (Auto) 13.9 x10^3/uL (1.8-7.7) Lymphocytes # (Auto) 0.5 x10^3/uL (1.0-4.8) Monocytes # (Auto) 0.3 x10^3/uL (0.0-1.1) Eosinophils # (Auto) 0.0 x10^3/uL (0.0-0.7) Basophils # (Auto) 0.0 x10^3/uL (0.0-0.2) Sodium Level 146 mmol/L (136-145) Potassium Level 4.0 mmol/L (3.5-5.1) Chloride Level 109 mmol/L (98-107) Carbon Dioxide Level 32 mmol/L (21-32) Anion Gap 5 (6-14) Blood Urea Nitrogen 34 mg/dL (7-20) Creatinine 0.8 mg/dL (0.6-1.0) Estimated GFR (Cockcroft-Gault) 71.3 BUN/Creatinine Ratio 43 (6-20) Glucose Level 145 mg/dL (70-99) Calcium Level 7.6 mg/dL (8.5-10.1) Total Bilirubin 0.4 mg/dL (0.2-1.0) Aspartate Amino Transf (AST/SGOT) 35 U/L (15-37) Alanine Aminotransferase (ALT/SGPT) 50 U/L (14-59) Alkaline Phosphatase 240 U/L (46-116) Total Protein 5.8 g/dL (6.4-8.2) Albumin 1.9 g/dL (3.4-5.0) Albumin/Globulin Ratio 0.5 (1.0-1.7) Test 06/06/20 08:30 06/06/20 09:03 06/06/20 13:03 06/06/20 17:44 O2 Saturation 85 % (92-99) Arterial Blood pH 7.47 (7.35-7.45) Arterial Blood pCO2 at Patient Temp 45 mmHg (35-46) Arterial Blood pO2 at Patient Temp 52 mmHg (65-108) Arterial Blood HCO3 32 mmol/L (21-28) Arterial Blood Base Excess 7 mmol/L (-3-3) FiO2 75 Glucose (Fingerstick) 123 mg/dL (70-99) 142 mg/dL (70-99) 129 mg/dL (70-99) Test 06/06/20 22:36 06/07/20 09:17 Glucose (Fingerstick) 339 mg/dL (70-99) 245 mg/dL (70-99) Laboratory Tests Test 06/06/20 13:03 06/06/20 17:44 06/06/20 22:36 06/07/20 09:17 Glucose (Fingerstick) 142 mg/dL (70-99) 129 mg/dL (70-99) 339 mg/dL (70-99) 245 mg/dL (70-99) Microbiology 05/26/20 Gram Stain Evaluation - Final, Complete 05/26/20 Respiratory Culture - Final, Complete 05/24/20 Blood Culture - Final, Complete NO GROWTH AFTER 5 DAYS 05/18/20 Urine Culture - Final, Complete Medications Current Medications Sodium Chloride 1,000 ml @ 1,000 mls/hr 1X ONCE IV Last administered on 05/18/20at 09:29; Start 05/18/20 at 09:15; Stop 05/18/20 at 10:14; Status DC Ceftriaxone Sodium (Rocephin) 1 gm 1X ONCE IVP Last administered on 05/18/20at 09:28; Start 05/18/20 at 09:15; Stop 05/18/20 at 09:16; Status DC Ondansetron HCl (Zofran) 4 mg PRN Q8HRS PRN IV NAUSEA/VOMITING; Start 05/18/20 at 10:15; Stop 05/18/20 at 16:24; Status DC Acetaminophen (Tylenol) 650 mg PRN Q4HRS PRN PO FEVER > 100.3'F; Start 05/18/20 at 10:15; Stop 05/18/20 at 16:24; Status DC Ceftriaxone Sodium (Rocephin) 1 gm Q24H IVP Last administered on 05/24/20 09:09; Start 05/19/20 at 09:00; Stop 05/24/20 at 18:10; Status DC Sodium Chloride (Normal Saline Flush) 3 ml QSHIFT PRN IV AFTER MEDS AND BLOOD DRAWS; Start 05/18/20 at 16:30 Sodium Chloride 1,000 ml @ 85 mls/hr [id number] IV Last administered on 05/24/20at 18:31; Start 05/18/20 at 16:20; Stop 05/25/20 at 09:44; Status DC Ondansetron HCl (Zofran) 4 mg PRN Q4HRS PRN IV NAUSEA/VOMITING; Start 05/18/20 at 16:30 Acetaminophen (Tylenol) 650 mg PRN Q4HRS PRN PO TEMP OVER 100.4F OR MILD PAIN Last administered on 05/30/20at 20:09; Start 05/18/20 at 16:30 Acetaminophen (Tylenol Supp) 650 mg PRN Q4HRS PRN NV TEMP OVER 100.4F OR MILD PAIN; Start 05/18/20 at 16:30 Sodium Monofluorophosphate (Fleet Adult) 133 ml PRN DAILY PRN NV CONSTIPATION; Start 05/18/20 at 16:30 Docusate Sodium (Colace) 100 mg PRN BID PRN PO HARD STOOLS Last administered on 06/06/20at 08:40; Start 05/18/20 at 16:30 Albuterol Sulfate (Ventolin Neb Soln) 2.5 mg PRN Q4HRS PRN NEB SHORTNESS OF BREATH Last administered on 05/21/20at 18:14; Start 05/18/20 at 16:30; Stop 05/31/20 at 16:19; Status DC Guaifenesin (Robitussin) 200 mg PRN Q4HRS PRN PO COUGH Last administered on 05/23/20at 20:00; Start 05/18/20 at 16:30 Enoxaparin Sodium (Lovenox 40mg Syringe) 40 mg Q24H SQ Last administered on 05/31/20 17:03; Start 05/18/20 at 17:00; Stop 06/01/20 at 10:27; Status DC Aspirin (Ecotrin) 81 mg DAILY PO Last administered on 06/07/20at 09:08; Start 05/19/20 at 09:00 Metoprolol Tartrate (Lopressor) 50 mg BID PO Last administered on 05/21/20 09:16; Start 05/19/20 at 09:00; Stop 05/21/20 at 15:45; Status DC Diclofenac Sodium (Voltaren) 75 mg BID PO Last administered on 06/03/20 20:29; Start 05/19/20 at 10:00; Stop 06/04/20 at 08:03; Status DC Hydralazine HCl (Apresoline) 100 mg BID PO Last administered on 05/21/20 09:15; Start 05/19/20 at 09:00; Stop 05/21/20 at 15:45; Status DC Lisinopril (Prinivil) 20 mg DAILY PO Last administered on 05/21/20 09:16; Start 05/19/20 at 10:00; Stop 05/21/20 at 15:45; Status DC Pantoprazole Sodium (Protonix) 40 mg DAILYAC PO Last administered on 06/07/20 09:09; Start 05/19/20 at 10:00 Atorvastatin Calcium (Lipitor) 40 mg QHS PO Last administered on 06/06/20 22:18; Start 05/19/20 at 21:00 Hydrochlorothiazide (Hydrodiuril) 25 mg DAILY PO Last administered on 05/23/20 08:59; Start 05/19/20 at 10:00; Stop 05/23/20 at 10:22; Status DC Lactobacillus Rhamnosus (Culturelle) 1 cap BID PO Last administered on 06/07/20 09:08; Start 05/19/20 at 21:00 Insulin Human Lispro (HumaLOG) 0-7 UNITS TIDWMEALS SQ Last administered on 06/07/20 09:37; Start 05/19/20 at 17:00 Dextrose (Dextrose 50%-Water Syringe) 12.5 gm PRN Q15MIN PRN IV SEE COMMENTS Last administered on 06/04/20 06:52; Start 05/19/20 at 14:15 Methimazole (Tapazole) 5 mg BID PO Last administered on 06/07/20 09:08; Start 05/20/20 at 10:00 Insulin Glargine (Lantus Syringe) 5 unit DAILY SQ Last administered on 05/22/20at 09:15; Start 05/21/20 at 09:00; Stop 05/22/20 at 21:05; Status DC Doxycycline Hyclate (Vibra-Tab) 100 mg BID PO Last administered on 05/28/20at 08:53; Start 05/21/20 at 15:00; Stop 05/28/20 at 15:02; Status DC Furosemide (Lasix) 20 mg 1X ONCE IVP Last administered on 05/21/20at 17:05; Start 05/21/20 at 17:00; Stop 05/21/20 at 17:01; Status DC Sterile Water (WATER for RESP) 1,000 ml CONT PRN INH VIA VAPOTHERM DEVICE Last administered on 05/23/20at 16:26; Start 05/21/20 at 17:15; Stop 05/30/20 at 12:58; Status DC Albuterol Sulfate (Ventolin Neb Soln) 2.5 mg Q4HRS NEB Last administered on 05/30/20at 15:45; Start 05/21/20 at 20:00; Stop 05/31/20 at 16:19; Status DC Vancomycin HCl (Vanco Per Pharmacy) 1 each PRN DAILY PRN MC SEE COMMENTS Last administered on 05/25/20at 23:52; Start 05/22/20 at 09:00; Stop 05/27/20 at 16:29; Status DC Vancomycin HCl 2 gm/Sodium Chloride 500 ml @ 250 mls/hr 1X ONCE IV Last administered on 05/22/20at 09:05; Start 05/22/20 at 09:00; Stop 05/22/20 at 10:59; Status DC Vancomycin HCl 1.25 gm/Sodium Chloride 250 ml @ 167 mls/hr Q24H IV Last administered on 05/23/20at 09:00; Start 05/23/20 at 09:00; Stop 05/24/20 at 10:05; Status DC Vancomycin HCl (Vancomycin Trough Level) 1 each 1X ONCE MC Last administered on 05/24/20at 08:30; Start 05/24/20 at 08:30; Stop 05/24/20 at 08:31; Status DC Methylprednisolone Sodium Succinate (SOLU-Medrol 125MG VIAL) 80 mg Q8HRS IV Last administered on 05/27/20at 06:04; Start 05/22/20 at 14:00; Stop 05/27/20 at 12:02; Status DC Insulin Glargine (Lantus Syringe) 10 unit BID SQ Last administered on 05/23/20 09:11; Start 05/22/20 at 21:00; Stop 05/23/20 at 20:17; Status DC Metoprolol Tartrate (Lopressor) 50 mg BID PO Last administered on 06/07/20 09:10; Start 05/23/20 at 10:30 Hydrochlorothiazide (Microzide) 12.5 mg DAILY PO Last administered on 06/07/20 09:09; Start 05/24/20 at 09:00 Potassium Chloride (Klor-Con) 40 meq Q2H PO Last administered on 05/23/20at 14:58; Start 05/23/20 at 10:30; Stop 05/23/20 at 14:31; Status DC Lisinopril (Prinivil) 40 mg DAILY PO Last administered on 06/07/20 09:09; Start 05/23/20 at 10:30 Hydralazine HCl (Apresoline) 100 mg BID PO Last administered on 06/07/20 09 :08; Start 05/23/20 at 10:30 Insulin Glargine (Lantus Syringe) 10 unit BID SQ Last administered on 05/24/20at 09:14; Start 05/23/20 at 21:00; Stop 05/24/20 at 11:28; Status DC Vancomycin HCl 1.25 gm/Sodium Chloride 250 ml @ 167 mls/hr Q12H IV Last admin istered on 05/27/20 08:21; Start 05/24/20 at 10:30; Stop 05/27/20 at 16:26; Status DC Vancomycin HCl (Vancomycin Trough Level) 1 each 1X ONCE MC Last administered on 05/25/20at 22:00; Start 05/25/20 at 22:00; Stop 05/25/20 at 22:01; Status DC Insulin Glargine (Lantus Syringe) 12 unit BID SQ ; Start 05/24/20 at 21:00; Stop 05/24/20 at 17:27; Status DC Insulin Glargine (Lantus Syringe) 15 unit BID SQ Last administered on 6/30/20at 08:19; Start 05/24/20 at 21:00; Stop 05/25/20 at 09:47; Status DC Insulin Human Lispro (HumaLOG) 7 units 1X ONCE SQ Last administered on 05/24/20at 18:01; Start 05/24/20 at 17:30; Stop 05/24/20 at 17:31; Status DC Piperacillin Sod/ Tazobactam Sod 3.375 gm/Sodium Chloride 50 ml @ 100 mls/hr Q6HRS IV Last administered on 05/28/20at 12:09; Start 05/24/20 at 18:30; Stop 05/28/20 at 15:01; Status DC Insulin Human Lispro (HumaLOG) 11 units 1X SQ ; Start 05/24/20 at 21:30; Status Cancel Insulin Human Lispro (HumaLOG) 11 units 1X ONCE SQ Last administered on 05/24/20at 22:25; Start 05/24/20 at 22:00; Stop 05/24/20 at 22:01; Status DC Furosemide (Lasix) 20 mg 1X ONCE IVP Last administered on 05/25/20at 11:12; Start 05/25/20 at 10:00; Stop 05/25/20 at 10:01; Status DC Insulin Glargine (Lantus Syringe) 18 unit BID SQ Last administered on 05/27/20at 08:33; Start 05/25/20 at 21:00; Stop 05/27/20 at 12:00; Status DC Midazolam HCl (Versed) 2 mg 1X ONCE IV ; Start 05/25/20 at 10:30; Stop 05/25/20 at 10:31; Status Cancel Fentanyl Citrate (Fentanyl 2ml Vial) 50 mcg 1X ONCE IM ; Start 05/25/20 at 10:30; Stop 05/25/20 at 10:31; Status Cancel Hydralazine HCl (Apresoline Inj) 10 mg PRN Q4HRS PRN IVP ELEVATED BP, SEE C OMMENTS Last administered on 05/29/20at 11:06; Start 05/25/20 at 16:15 Potassium Chloride (Klor-Con) 40 meq 1X ONCE PO Last administered on 05/26/20at 18:43; Start 05/26/20 at 18:30; Stop 05/26/20 at 18:31; Status DC Insulin Glargine (Lantus Syringe) 22 unit BID SQ Last administered on 05/29/20at 08:24; Start 05/27/20 at 21:00; Stop 05/29/20 at 12:14; Status DC Methylprednisolone Sodium Succinate (SOLU-Medrol 125MG VIAL) 40 mg Q12HR IV Last administered on 05/28/20at 08:52; Start 05/27/20 at 19:00; Stop 05/28/20 at 13:37; Status DC Nystatin (Nystatin Oral Susp) 5 ml [id number] Last administered on 06/07/20at 09:07; Start 05/27/20 at 17:00 Insulin Human Lispro (HumaLOG) 20 units 1X ONCE SQ Last administered on 05/27/20at 17:32; Start 05/27/20 at 17:30; Stop 05/27/20 at 17:31; Status DC Methylprednisolone Sodium Succinate (SOLU-Medrol 40MG VIAL) 40 mg Q12HR IV Last administered on 05/30/20at 08:34; Start 05/28/20 at 21:00; Stop 05/30/20 at 14:10; Status DC Amoxicillin/ Clavulanate Potassium (Augmentin 875/ 125mg) 1 tab BID PO Last administered on 05/31/20at 19:53; Start 05/28/20 at 21:00; Stop 05/31/20 at 21:01; Status DC Amlodipine Besylate (Norvasc) 2.5 mg DAILY PO Last administered on 06/07/20at 09:09; Start 05/29/20 at 11:45 Furosemide (Lasix) 20 mg 1X ONCE PO Last administered on 05/29/20at 12:40; Start 05/29/20 at 12:30; Stop 05/29/20 at 12:31; Status DC Potassium Chloride (Klor-Con) 20 meq 1X ONCE PO Last administered on 05/29/20at 12:40; Start 05/29/20 at 12:30; Stop 05/29/20 at 12:31; Status DC Insulin Glargine (Lantus Syringe) 25 unit BID SQ Last administered on 06/04/20at 07:58; Start 05/29/20 at 21:00; Stop 06/04/20 at 09:20; Status DC Furosemide (Lasix) 40 mg 1X ONCE IVP Last administered on 05/30/20at 11:47; Start 05/30/20 at 11:15; Stop 05/30/20 at 11:16; Status DC Iohexol (Omnipaque 350 Mg/ml) 100 ml 1X ONCE IV Last administered on 05/30/20at 12:00; Start 05/30/20 at 12:00; Stop 05/30/20 at 12:01; Status DC Info (CONTRAST GIVEN -- Rx MONITORING) 1 each PRN DAILY PRN MC SEE COMMENTS; Start 05/30/20 at 12:15; Stop 06/01/20 at 12:14; Status DC Sterile Water (WATER for RESP) 1,000 ml CONT PRN INH VIA VAPOTHERM DEVICE Last administered on 06/05/20at 16:35; Start 05/30/20 at 13:00 Methylprednisolone Sodium Succinate (SOLU-Medrol 125MG VIAL) 125 mg Q12HR IV Last administered on 06/07/20at 09:10; Start 05/30/20 at 14:15 Enoxaparin Sodium (Lovenox 40mg Syringe) 40 mg BID SQ Last administered on 06/07/20at 09:08; Start 06/01/20 at 21:00 Non-Formulary Medication 1 ea/ Sodium Chloride 210 ml @ 210 mls/hr 1X ONCE IV Last administered on 06/01/20at 17:11; Start 06/01/20 at 16:30; Stop 06/01/20 at 17:29; Status DC Non-Formulary Medication 1 ea/ Sodium Chloride 230 ml @ 460 mls/hr DAILY IV Last administered on 06/05/20at 17:38; Start 06/02/20 at 09:00; Stop 06/05/20 at 09:29; Status DC Potassium Chloride (Klor-Con) 40 meq 1X ONCE PO Last administered on 06/03/20at 09:51; Start 06/03/20 at 08:00; Stop 06/03/20 at 08:01; Status DC Diclofenac Sodium (Voltaren) 75 mg BID PO ; Start 06/04/20 at 08:03; Stop 06/04/20 at 08:04; Status DC Diclofenac Sodium (Voltaren) 75 mg BID PO Last administered on 06/07/20at 09:00; Start 06/04/20 at 09:00 Insulin Glargine (Lantus Syringe) 30 unit QHS SQ Last administered on 06/04/20at 21:14; Start 06/04/20 at 21:00; Stop 06/05/20 at 10:25; Status DC Insulin Glargine (Lantus Syringe) 15 unit QHS SQ Last administered on 06/06/20at 23:17; Start 06/05/20 at 21:00 Active Scripts Active Reported Actos (Pioglitazone Hcl) 45 Mg Tablet 1 Tab PO DAILY 30 Days Diclofenac Sodium 75 Mg Tablet.dr 1 Tab PO BID Klor-Con 10 (Potassium Chloride) 10 Meq Tablet.er 1 Tab PO DAILY 30 Days Metformin Hcl 1,000 Mg Tablet 1,000 Mg PO BIDWMEALS Omeprazole 20 Mg Capsule.dr 1 Cap PO DAILY Lisinopril-Hctz 20-25 Mg Tab (Lisinopril/Hydrochlorothiazide) 1 Each Tablet 1 Tab PO DAILY Aspirin Ec (Aspirin) 81 Mg Tablet.dr 1 Tab PO DAILY Hydralazine Hcl 100 Mg Tablet 1 Tab PO BID Metoprolol Tartrate 50 Mg Tablet 1 Tab PO BID Rosuvastatin Calcium 10 Mg Tablet 10 Mg PO DAILY Vitals/I & O Vital Sign - Last 24 Hours 06/06/20 06/06/20 06/06/20 06/06/20 11:00 12:00 12:00 12:00 Temp 98.3 98.3 Resp 19 14 B/P (MAP) 163/69 (100) 166/61 (96) Pulse Ox 93 92 94 O2 Delivery vapotherm vapotherm Bi-pap VAPOTHERM O2 Flow Rate 40.0 40.0 40.0 06/06/20 06/06/20 06/06/20 06/06/20 12:16 13:00 14:00 15:00 Resp 33 30 28 B/P (MAP) 138/65 (89) 119/64 (82) 149/65 (93) Pulse Ox 92 84 83 93 O2 Delivery vapotherm vapotherm vapotherm O2 Flow Rate 40.0 40.0 40.0 06/06/20 06/06/20 06/06/20 06/06/20 15:45 16:00 16:00 17:00 Temp 98.6 98.6 Resp 21 30 B/P (MAP) 154/69 (97) 160/66 (97) Pulse Ox 93 89 70 O2 Delivery Vapotherm vapotherm Bi-pap vapotherm O2 Flow Rate 40.0 40.0 40.0 06/06/20 06/06/20 06/06/20 06/06/20 18:00 19:00 20:00 20:00 Temp 98.0 98.0 Pulse 70 70 60 Resp 27 30 20 B/P (MAP) 170/82 (111) 135/63 (87) 157/79 (105) Pulse Ox 93 91 95 O2 Delivery vapotherm vapotherm Nasal Cannula vapotherm O2 Flow Rate 40.0 40.0 40.0 40.0 06/06/20 06/06/20 06/06/20 06/06/20 20:19 21:00 21:00 22:00 Pulse 50 54 50 Resp 26 25 B/P (MAP) 136/52 164/74 (104) 134/52 (79) Pulse Ox 96 95 97 O2 Delivery VAPOTHERM vapotherm vapotherm O2 Flow Rate 40.0 40.0 06/06/20 06/06/20 06/06/20 06/07/20 22:20 23:00 23:09 00:01 Pulse 52 56 Resp 38 B/P (MAP) 134/52 146/57 (86) Pulse Ox 88 93 O2 Delivery BiPAP/CPAP BiPAP/CPAP O2 Flow Rate 40.0 06/07/20 06/07/20 06/07/20 06/07/20 00:01 00:01 00:01 01:00 Temp 98.0 97.8 98.0 97.8 Pulse 60 58 40 Resp 20 29 24 B/P (MAP) 157/79 (105) 178/72 (107) 178/74 (108) Pulse Ox 95 93 94 O2 Delivery vapotherm Nasal Cannula BiPAP/CPAP BiPAP/CPAP O2 Flow Rate 40.0 40.0 06/07/20 06/07/20 06/07/20 06/07/20 02:00 02:26 03:00 04:00 Pulse 38 40 Resp 32 36 B/P (MAP) 177/64 (101) 156/58 (90) Pulse Ox 93 93 95 O2 Delivery BiPAP/CPAP BiPAP/CPAP BiPAP/CPAP O2 Flow Rate 40.0 06/07/20 06/07/20 06/07/2006/07/20 04:00 04:30 05:00 06:00 Temp 97.8 97.8 Pulse 42 58 52 Resp 24 20 23 B/P (MAP) 152/60 (90) 152/61 (91) 170/86 (114) Pulse Ox 92 95 97 O2 Delivery BiPAP/CPAP Bi-pap BiPAP/CPAP BiPAP/CPAP 06/07/20 06/07/20 06/07/20 06/07/20 07:00 07:40 08:00 08:00 Temp 97.8 97.8 Pulse 56 58 Resp 22 25 B/P (MAP) 155/69 (97) 149/59 (89) Pulse Ox 97 95 96 O2 Delivery BiPAP/CPAP BiPAP/CPAP BiPAP/CPAP Bi-pap 06/07/20 06/07/20 06/07/20 06/07/20 09:00 09:08 09:09 09:09 Pulse 56 54 54 54 Resp 23 B/P (MAP) 165/68 (100) 165/68 165/64 165/68 Pulse Ox 95 O2 Delivery Vapotherm O2 Flow Rate 40.0 06/07/20 09:10 Pulse 54 B/P (MAP) 165/68 Intake and Output 06/06/20 06/06/20 06/07/20 15:00 23:00 07:00 Intake Total 800 ml 300 ml 150 ml Output Total 520 ml 170 ml 520 ml Balance 280 ml 130 ml -370 ml Justicifation of Admission Dx: Justifications for Admission: Justification of Admission Dx: Yes Altered Mental Status: Altered Mental Status DARREL CASTRO MD Jun 07, 2020 10:06
--- NOTE | 2020-06-07 11:38 | PDOC ---
PROGRESS NOTES Chief Complaint Chief Complaint Acute hypoxic respiratory failure secondary to multifocal infiltrate/pleural effusions Sepsis Hyperthyroidism likely Graves Dz Hypoglycemic encephalopathy, IMPROVING Severe protein-calorie malnutrition. DM2, HTN urinary retention, pain COVID + 05/30 - COVID-19 negative on 05/18/2020 and 05/19/2020. Remdesivir started 06/01 Pneumonia. sputum cx: Resp gerri. Off vanc/Zosyn/doxy. Off Augmentin CHF Severe protein-calorie malnutrition Gram-positive cocci bacteremia, 05/18/2020, 1 out of 2 bottles, ID MICROCOCCUS SPECIES, likely a contaminant. History of Present Illness History of Present Illness 05/30 transfer to ICU for hypoxia, urinary retention, maldonado placed, had been striaight cath, 06/01, still hypoxia, some dyspena, on bipap COVID was pos. Started on remdisivir 06/02: Increased shortness of breath. On BIPAP overnight, transitioned to vapotherm. No cough/F/C/aches/nausea. Feels better. Family contacting nursing staff frequently. 06/03:Afebrile. Still with increased inflammatory markers. Overall feels better. Required Vapotherm during the day was on BiPAP overnight. Sodium up to 150 today, ABG 7.51/40 , placed back on BiPAP, no complaints except she is very tired. 06/04: Afebrile. WBC 16.4. Glucose 40 this morning. Asking to eat. On BIPAP. Remdesivir to initiate per pulm recommendations based on her clinical course. Change glargine from BID to QHS, cut dosing by 40%. 06/05: Afebrile, on Vapotherm. Hypoglycemic to 48 this morning despite insulin reduction. She is asking for milk. States she feels much better. Is somewhat confused disoriented today and location. 06/06: Afebrile. WBC 14. On vapotherm. glucose normalized. No complaints. Is a bit confused. Afebrile. She feels better. CXR improved slightly in the interval. Still on Vapotherm. Still confused. Appetite improved cc time 38 minutes Vitals Vitals Vital Signs Date Time Temp Pulse Resp B/P (MAP) Pulse Ox O2 Delivery O2 Flow Rate FiO2 06/07/20 11:00 62 29 189/78 (115) 95 Vapotherm 40.0 06/07/20 08:00 97.8 97.8 Physical Exam Physical Exam GENERAL: Propped up in bed, alert, calm - appears comfortable HEENT: On BiPAP NECK: Supple. LUNGS: CTA HEART: S1, S2. regular ABDOMEN: Obese, soft, nontender : Maldonado in place EXTREMITIES: trace edema lower extremities bilaterally. No cyanosis DERMATOLOGIC: Warm, dry. No generalized rash. NEUROLOGIC: Alert, responds appropriately General: Alert, Cooperative, No acute distress Heart: Regular rate, Normal S1, Normal S2, No murmurs Lungs: Clear Abdomen: Normal bowel sounds, Soft, No tenderness, No hepatosplenomegaly Labs LABS Laboratory Tests Test 06/06/20 13:03 06/06/20 17:44 06/06/20 22:36 06/07/20 09:17 Glucose (Fingerstick) 142 mg/dL (70-99) 129 mg/dL (70-99) 339 mg/dL (70-99) 245 mg/dL (70-99) Assessment and Plan Assessmemt and Plan Problems Medical Problems: (1) Altered mental status Status: Acute (2) Hypoglycemia Status: Acute (3) Hypothermia Status: Acute Comment Review of Relevant I have reviewed the following items kavya (where applicable) has been applied. Labs Laboratory Tests Test 06/05/20 12:17 06/05/20 18:09 06/05/20 21:23 06/06/20 07:35 Glucose (Fingerstick) 162 mg/dL (70-99) 343 mg/dL (70-99) 294 mg/dL (70-99) White Blood Count 14.8 x10^3/uL (4.0-11.0) Red Blood Count 3.54 x10^6/uL (3.50-5.40) Hemoglobin 9.7 g/dL (12.0-15.5) Hematocrit 29.8 % (36.0-47.0) Mean Corpuscular Volume 84 fL (79-100) Mean Corpuscular Hemoglobin 28 pg (25-35) Mean Corpuscular Hemoglobin Concent 33 g/dL (31-37) Red Cell Distribution Width 17.9 % (11.5-14.5) Platelet Count 254 x10^3/uL (140-400) Neutrophils (%) (Auto) 94 % (31-73) Lymphocytes (%) (Auto) 3 % (24-48) Monocytes (%) (Auto) 2 % (0-9) Eosinophils (%) (Auto) 0 % (0-3) Basophils (%) (Auto) 0 % (0-3) Neutrophils # (Auto) 13.9 x10^3/uL (1.8-7.7) Lymphocytes # (Auto) 0.5 x10^3/uL (1.0-4.8) Monocytes # (Auto) 0.3 x10^3/uL (0.0-1.1) Eosinophils # (Auto) 0.0 x10^3/uL (0.0-0.7) Basophils # (Auto) 0.0 x10^3/uL (0.0-0.2) Sodium Level 146 mmol/L (136-145) Potassium Level 4.0 mmol/L (3.5-5.1) Chloride Level 109 mmol/L (98-107) Carbon Dioxide Level 32 mmol/L (21-32) Anion Gap 5 (6-14) Blood Urea Nitrogen 34 mg/dL (7-20) Creatinine 0.8 mg/dL (0.6-1.0) Estimated GFR (Cockcroft-Gault) 71.3 BUN/Creatinine Ratio 43 (6-20) Glucose Level 145 mg/dL (70-99) Calcium Level 7.6 mg/dL (8.5-10.1) Total Bilirubin 0.4 mg/dL (0.2-1.0) Aspartate Amino Transf (AST/SGOT) 35 U/L (15-37) Alanine Aminotransferase (ALT/SGPT) 50 U/L (14-59) Alkaline Phosphatase 240 U/L (46-116) Total Protein 5.8 g/dL (6.4-8.2) Albumin 1.9 g/dL (3.4-5.0) Albumin/Globulin Ratio 0.5 (1.0-1.7) Test 06/06/20 08:30 06/06/20 09:03 06/06/20 13:03 06/06/20 17:44 O2 Saturation 85 % (92-99) Arterial Blood pH 7.47 (7.35-7.45) Arterial Blood pCO2 at Patient Temp 45 mmHg (35-46) Arterial Blood pO2 at Patient Temp 52 mmHg (65-108) Arterial Blood HCO3 32 mmol/L (21-28) Arterial Blood Base Excess 7 mmol/L (-3-3) FiO2 75 Glucose (Fingerstick) 123 mg/dL (70-99) 142 mg/dL (70-99) 129 mg/dL (70-99) Test 06/06/20 22:36 06/07/20 09:17 Glucose (Fingerstick) 339 mg/dL (70-99) 245 mg/dL (70-99) Laboratory Tests Test 06/06/20 13:03 06/06/20 17:44 06/06/20 22:36 06/07/20 09:17 Glucose (Fingerstick) 142 mg/dL (70-99) 129 mg/dL (70-99) 339 mg/dL (70-99) 245 mg/dL (70-99) Microbiology 05/26/20 Gram Stain Evaluation - Final, Complete 05/26/20 Respiratory Culture - Final, Complete 05/24/20 Blood Culture - Final, Complete NO GROWTH AFTER 5 DAYS 05/18/20 Urine Culture - Final, Complete Medications Current Medications Sodium Chloride 1,000 ml @ 1,000 mls/hr 1X ONCE IV Last administered on 05/18/20at 09:29; Start 05/18/20 at 09:15; Stop 05/18/20 at 10:14; Status DC Ceftriaxone Sodium (Rocephin) 1 gm 1X ONCE IVP Last administered on 05/18/20at 09:28; Start 05/18/20 at 09:15; Stop 05/18/20 at 09:16; Status DC Ondansetron HCl (Zofran) 4 mg PRN Q8HRS PRN IV NAUSEA/VOMITING; Start 05/18/20 at 10:15; Stop 05/18/20 at 16:24; Status DC Acetaminophen (Tylenol) 650 mg PRN Q4HRS PRN PO FEVER > 100.3'F; Start 05/18/20 at 10:15; Stop 05/18/20 at 16:24; Status DC Ceftriaxone Sodium (Rocephin) 1 gm Q24H IVP Last administered on 05/24/20at 09:09; Start 05/19/20 at 09:00; Stop 05/24/20 at 18:10; Status DC Sodium Chloride (Normal Saline Flush) 3 ml QSHIFT PRN IV AFTER MEDS AND BLOOD DRAWS; Start 05/18/20 at 16:30 Sodium Chloride 1,000 ml @ 85 mls/hr [id number] IV Last administered on 05/24/20at 18:31; Start 05/18/20 at 16:20; Stop 05/25/20 at 09:44; Status DC Ondansetron HCl (Zofran) 4 mg PRN Q4HRS PRN IV NAUSEA/VOMITING; Start 05/18/20 at 16:30 Acetaminophen (Tylenol) 650 mg PRN Q4HRS PRN PO TEMP OVER 100.4F OR MILD PAIN Last administered on 05/30/20 20:09; Start 05/18/20 at 16:30 Acetaminophen (Tylenol Supp) 650 mg PRN Q4HRS PRN FL TEMP OVER 100.4F OR MILD PAIN; Start 05/18/20 at 16:30 Sodium Monofluorophosphate (Fleet Adult) 133 ml PRN DAILY PRN FL CONSTIPATION; Start 05/18/20 at 16:30 Docusate Sodium (Colace) 100 mg PRN BID PRN PO HARD STOOLS Last administered on 06/06/20at 08:40; Start 05/18/20 at 16:30 Albuterol Sulfate (Ventolin Neb Soln) 2.5 mg PRN Q4HRS PRN NEB SHORTNESS OF BREATH Last administered on 05/21/20at 18:14; Start 05/18/20 at 16:30; Stop 05/31/20 at 16:19; Status DC Guaifenesin (Robitussin) 200 mg PRN Q4HRS PRN PO COUGH Last administered on 05/23/20at 20:00; Start 05/18/20 at 16:30 Enoxaparin Sodium (Lovenox 40mg Syringe) 40 mg Q24H SQ Last administered on 05/31/20 17:03; Start 05/18/20 at 17:00; Stop 06/01/20 at 10:27; Status DC Aspirin (Ecotrin) 81 mg DAILY PO Last administered on 06/07/20 09:08; Start 05/19/20 at 09:00 Metoprolol Tartrate (Lopressor) 50 mg BID PO Last administered on 05/21/20at 09:16; Start 05/19/20 at 09:00; Stop 05/21/20 at 15:45; Status DC Diclofenac Sodium (Voltaren) 75 mg BID PO Last administered on 06/03/20 20:29; Start 05/19/20 at 10:00; Stop 06/04/20 at 08:03; Status DC Hydralazine HCl (Apresoline) 100 mg BID PO Last administered on 05/21/20at 09:15; Start 05/19/20 at 09:00; Stop 05/21/20 at 15:45; Status DC Lisinopril (Prinivil) 20 mg DAILY PO Last administered on 05/21/20 09:16; Start 05/19/20 at 10:00; Stop 05/21/20 at 15:45; Status DC Pantoprazole Sodium (Protonix) 40 mg DAILYAC PO Last administered on 06/07/20 09:09; Start 05/19/20 at 10:00 Atorvastatin Calcium (Lipitor) 40 mg QHS PO Last administered on 06/06/20at 22:18; Start 05/19/20 at 21:00 Hydrochlorothiazide (Hydrodiuril) 25 mg DAILY PO Last administered on 05/23/20at 08:59; Start 05/19/20 at 10:00; Stop 05/23/20 at 10:22; Status DC Lactobacillus Rhamnosus (Culturelle) 1 cap BID PO Last administered on 06/07/20 09:08; Start 05/19/20 at 21:00 Insulin Human Lispro (HumaLOG) 0-7 UNITS TIDWMEALS SQ Last administered on 06/07/20at 09:37; Start 05/19/20 at 17:00 Dextrose (Dextrose 50%-Water Syringe) 12.5 gm PRN Q15MIN PRN IV SEE COMMENTS Last administered on 06/04/20 06:52; Start 05/19/20 at 14:15 Methimazole (Tapazole) 5 mg BID PO Last administered on 06/07/20 09:08; Start 05/20/20 at 10:00 Insulin Glargine (Lantus Syringe) 5 unit DAILY SQ Last administered on 05/22/20at 09:15; Start 05/21/20 at 09:00; Stop 05/22/20 at 21:05; Status DC Doxycycline Hyclate (Vibra-Tab) 100 mg BID PO Last administered on 05/28/20at 08:53; Start 05/21/20 at 15:00; Stop 05/28/20 at 15:02; Status DC Furosemide (Lasix) 20 mg 1X ONCE IVP Last administered on 05/21/20at 17:05; Start 05/21/20 at 17:00; Stop 05/21/20 at 17:01; Status DC Sterile Water (WATER for RESP) 1,000 ml CONT PRN INH VIA VAPOTHERM DEVICE Last administered on 05/23/20at 16:26; Start 05/21/20 at 17:15; Stop 05/30/20 at 12:58; Status DC Albuterol Sulfate (Ventolin Neb Soln) 2.5 mg Q4HRS NEB Last administered on 05/30/20at 15:45; Start 05/21/20 at 20:00; Stop 05/31/20 at 16:19; Status DC Vancomycin HCl (Vanco Per Pharmacy) 1 each PRN DAILY PRN MC SEE COMMENTS Last administered on 05/25/20at 23:52; Start 05/22/20 at 09:00; Stop 05/27/20 at 16:29; Status DC Vancomycin HCl 2 gm/Sodium Chloride 500 ml @ 250 mls/hr 1X ONCE IV Last administered on 05/22/20at 09:05; Start 05/22/20 at 09:00; Stop 05/22/20 at 10:59; Status DC Vancomycin HCl 1.25 gm/Sodium Chloride 250 ml @ 167 mls/hr Q24H IV Last administered on 05/23/20at 09:00; Start 05/23/20 at 09:00; Stop 05/24/20 at 10:05; Status DC Vancomycin HCl (Vancomycin Trough Level) 1 each 1X ONCE MC Last administered on 05/24/20at 08:30; Start 05/24/20 at 08:30; Stop 05/24/20 at 08:31; Status DC Methylprednisolone Sodium Succinate (SOLU-Medrol 125MG VIAL) 80 mg Q8HRS IV Last administered on 05/27/20at 06:04; Start 05/22/20 at 14:00; Stop 05/27/20 at 12:02; Status DC Insulin Glargine (Lantus Syringe) 10 unit BID SQ Last administered on 05/23/20 09:11; Start 05/22/20 at 21:00; Stop 05/23/20 at 20:17; Status DC Metoprolol Tartrate (Lopressor) 50 mg BID PO Last administered on 06/07/20 09:10; Start 05/23/20 at 10:30 Hydrochlorothiazide (Microzide) 12.5 mg DAILY PO Last administered on 06/07/20 09:09; Start 05/24/20 at 09:00 Potassium Chloride (Klor-Con) 40 meq Q2H PO Last administered on 05/23/20at 14:58; Start 05/23/20 at 10:30; Stop 05/23/20 at 14:31; Status DC Lisinopril (Prinivil) 40 mg DAILY PO Last administered on 06/07/20 09:09; Start 05/23/20 at 10:30 Hydralazine HCl (Apresoline) 100 mg BID PO Last administered on 06/07/20 09:08; Start 05/23/20 at 10:30 Insulin Glargine (Lantus Syringe) 10 unit BID SQ Last administered on 05/24/20at 09:14; Start 05/23/20 at 21:00; Stop 05/24/20 at 11:28; Status DC Vancomycin HCl 1.25 gm/Sodium Chloride 250 ml @ 167 mls/hr Q12H IV Last administered on 05/27/20at 08:21; Start 05/24/20 at 10:30; Stop 05/27/20 at 16:26; Status DC Vancomycin HCl (Vancomycin Trough Level) 1 each 1X ONCE MC Last administered on 05/25/20at 22:00; Start 05/25/20 at 22:00; Stop 05/25/20 at 22:01; Status DC Insulin Glargine (Lantus Syringe) 12 unit BID SQ ; Start 05/24/20 at 21:00; Stop 05/24/20 at 17:27; Status DC Insulin Glargine (Lantus Syringe) 15 unit BID SQ Last administered on 05/25/20at 08:19; Start 05/24/20 at 21:00; Stop 05/25/20 at 09:47; Status DC Insulin Human Lispro (HumaLOG) 7 units 1X ONCE SQ Last administered on 05/24/20at 18:01; Start 05/24/20 at 17:30; Stop 05/24/20 at 17:31; Status DC Piperacillin Sod/ Tazobactam Sod 3.375 gm/Sodium Chloride 50 ml @ 100 mls/hr Q6HRS IV Last administered on 05/28/20at 12:09; Start 05/24/20 at 18:30; Stop 05/28/20 at 15:01; Status DC Insulin Human Lispro (HumaLOG) 11 units 1X SQ ; Start 05/24/20 at 21:30; Status Cancel Insulin Human Lispro (HumaLOG) 11 units 1X ONCE SQ Last administered on 05/24/20at 22:25; Start 05/24/20 at 22:00; Stop 05/24/20 at 22:01; Status DC Furosemide (Lasix) 20 mg 1X ONCE IVP Last administered on 05/25/20at 11:12; Start 05/25/20 at 10:00; Stop 05/25/20 at 10:01; Status DC Insulin Glargine (Lantus Syringe) 18 unit BID SQ Last administered on 05/27/20at 08:33; Start 05/25/20 at 21:00; Stop 05/27/20 at 12:00; Status DC Midazolam HCl (Versed) 2 mg 1X ONCE IV ; Start 05/25/20 at 10:30; Stop 05/25/20 at 10:31; Status Cancel Fentanyl Citrate (Fentanyl 2ml Vial) 50 mcg 1X ONCE IM ; Start 05/25/20 at 10:30; Stop 05/25/20 at 10:31; Status Cancel Hydralazine HCl (Apresoline Inj) 10 mg PRN Q4HRS PRN IVP ELEVATED BP, SEE COMMENTS Last administered on 05/29/20at 11:06; Start 05/25/20 at 16:15 Potassium Chloride (Klor-Con) 40 meq 1X ONCE PO Last administered on 05/26/20at 18:43; Start 05/26/20 at 18:30; Stop 05/26/20 at 18:31; Status DC Insulin Glargine (Lantus Syringe) 22 unit BID SQ Last administered on 05/29/20at 08:24; Start 05/27/20 at 21:00; Stop 05/29/20 at 12:14; Status DC Methylprednisolone Sodium Succinate (SOLU-Medrol 125MG VIAL) 40 mg Q12HR IV Last administered on 05/28/20at 08:52; Start 05/27/20 at 19:00; Stop 05/28/20 at 13:37; Status DC Nystatin (Nystatin Oral Susp) 5 ml [id number] Last administered on 06/07/20at 09:07; Start 05/27/20 at 17:00 Insulin Human Lispro (HumaLOG) 20 units 1X ONCE SQ Last administered on 05/27/20at 17:32; Start 05/27/20 at 17:30; Stop 05/27/20 at 17:31; Status DC Methylprednisolone Sodium Succinate (SOLU-Medrol 40MG VIAL) 40 mg Q12HR IV Last administered on 05/30/20at 08:34; Start 05/28/20 at 21:00; Stop 05/30/20 at 14:10; Status DC Amoxicillin/ Clavulanate Potassium (Augmentin 875/ 125mg) 1 tab BID PO Last administered on 05/31/20at 19:53; Start 05/28/20 at 21:00; Stop 05/31/20 at 21:01; Status DC Amlodipine Besylate (Norvasc) 2.5 mg DAILY PO Last administered on 06/07/20at 09:09; Start 05/29/20 at 11:45 Furosemide (Lasix) 20 mg 1X ONCE PO Last administered on 05/29/20at 12:40; Star t 05/29/20 at 12:30; Stop 05/29/20 at 12:31; Status DC Potassium Chloride (Klor-Con) 20 meq 1X ONCE PO Last administered on 05/29/20at 12:40; Start 05/29/20 at 12:30; Stop 05/29/20 at 12:31; Status DC Insulin Glargine (Lantus Syringe) 25 unit BID SQ Last administered on 06/04/20at 07:58; Start 05/29/20 at 21:00; Stop 06/04/20 at 09:20; Status DC Furosemide (Lasix) 40 mg 1X ONCE IVP Last administered on 05/30/20at 11:47; Start 05/30/20 at 11:15; Stop 05/30/20 at 11:16; Status DC Iohexol (Omnipaque 350 Mg/ml) 100 ml 1X ONCE IV Last administered on 05/30/20at 12:00; Start 05/30/20 at 12:00; Stop 05/30/20 at 12:01; Status DC Info (CONTRAST GIVEN -- Rx MONITORING) 1 each PRN DAILY PRN MC SEE COMMENTS; Start 05/30/20 at 12:15; Stop 06/01/20 at 12:14; Status DC Sterile Water (WATER for RESP) 1,000 ml CONT PRN INH VIA VAPOTHERM DEVICE Last administered on 06/05/20at 16:35; Start 05/30/20 at 13:00 Methylprednisolone Sodium Succinate (SOLU-Medrol 125MG VIAL) 125 mg Q12HR IV Last administered on 06/07/20at 09:10; Start 05/30/20 at 14:15 Enoxaparin Sodium (Lovenox 40mg Syringe) 40 mg BID SQ Last administered on 06/07/20at 09:08; Start 06/01/20 at 21:00 Non-Formulary Medication 1 ea/ Sodium Chloride 210 ml @ 210 mls/hr 1X ONCE IV Last administered on 06/01/20at 17:11; Start 06/01/20 at 16:30; Stop 06/01/20 at 17:29; Status DC Non-Formulary Medication 1 ea/ Sodium Chloride 230 ml @ 460 mls/hr DAILY IV Last administered on 06/05/20at 17:38; Start 06/02/20 at 09:00; Stop 06/05/20 at 09:29; Status DC Potassium Chloride (Klor-Con) 40 meq 1X ONCE PO Last administered on 06/03/20at 09:51; Start 06/03/20 at 08:00; Stop 06/03/20 at 08:01; Status DC Diclofenac Sodium (Voltaren) 75 mg BID PO ; Start 06/04/20 at 08:03; Stop 06/04/20 at 08:04; Status DC Diclofenac Sodium (Voltaren) 75 mg BID PO Last administered on 06/07/20at 09:00; Start 06/04/20 at 09:00 Insulin Glargine (Lantus Syringe) 30 unit QHS SQ Last administered on 06/04/20at 21:14; Start 06/04/20 at 21:00; Stop 06/05/20 at 10:25; Status DC Insulin Glargine (Lantus Syringe) 15 unit QHS SQ Last administered on 06/06/20at 23:17; Start 06/05/20 at 21:00 Active Scripts Active Reported Actos (Pioglitazone Hcl) 45 Mg Tablet 1 Tab PO DAILY 30 Days Diclofenac Sodium 75 Mg Tablet.dr 1 Tab PO BID Klor-Con 10 (Potassium Chloride) 10 Meq Tablet.er 1 Tab PO DAILY 30 Days Metformin Hcl 1,000 Mg Tablet 1,000 Mg PO BIDWMEALS Omeprazole 20 Mg Capsule.dr 1 Cap PO DAILY Lisinopril-Hctz 20-25 Mg Tab (Lisinopril/Hydrochlorothiazide) 1 Each Tablet 1 Tab PO DAILY Aspirin Ec (Aspirin) 81 Mg Tablet.dr 1 Tab PO DAILY Hydralazine Hcl 100 Mg Tablet 1 Tab PO BID Metoprolol Tartrate 50 Mg Tablet 1 Tab PO BID Rosuvastatin Calcium 10 Mg Tablet 10 Mg PO DAILY Vitals/I & O Vital Sign - Last 24 Hours 06/06/20 06/06/20 06/06/20 06/06/20 12:00 12:00 12:00 12:16 Temp 98.3 98.3 Resp 14 B/P (MAP) 166/61 (96) Pulse Ox 92 94 92 O2 Delivery vapotherm Bi-pap VAPOTHERM O2 Flow Rate 40.0 40.0 06/06/20 06/06/20 06/06/20 06/06/20 13:00 14:00 15:00 15:45 Resp 33 30 28 B/P (MAP) 138/65 (89) 119/64 (82) 149/65 (93) Pulse Ox 84 83 93 93 O2 Delivery vapotherm vapotherm vapotherm Vapotherm O2 Flow Rate 40.0 40.0 40.0 40.0 06/06/20 06/06/20 06/06/20 06/06/20 16:00 16:00 17:00 18:00 Temp 98.6 98.6 Pulse 70 Resp 21 30 27 B/P (MAP) 154/69 (97) 160/66 (97) 170/82 (111) Pulse Ox 89 70 93 O2 Delivery vapotherm Bi-pap vapotherm vapotherm O2 Flow Rate 40.0 40.0 40.0 706/06/20 06/06/20 06/06/20 19:00 20:00 20:00 20:19 Temp 98.0 98.0 Pulse 70 60 Resp 30 20 B/P (MAP) 135/63 (87) 157/79 (105) Pulse Ox 91 95 96 O2 Delivery vapotherm Nasal Cannula vapotherm VAPOTHERM O2 Flow Rate 40.0 40.0 40.0 40.0 06/06/20 06/06/20 06/06/20 06/06/20 21:00 21:00 22:00 22:20 Pulse 50 54 50 52 Resp 26 25 B/P (MAP) 136/52 164/74 (104) 134/52 (79) 134/52 Pulse Ox 95 97 O2 Delivery vapotherm vapotherm O2 Flow Rate 40.0 06/06/20 06/06/20 06/07/20 06/07/20 23:00 23:09 00:01 00:01 Temp 98.0 98.0 Pulse 56 60 Resp 38 20 B/P (MAP) 146/57 (86) 157/79 (105) Pulse Ox 88 93 95 O2 Delivery BiPAP/CPAP BiPAP/CPAP vapotherm O2 Flow Rate 40.0 40.0 06/07/20 06/07/20 06/07/20 06/07/20 00:01 00:01 01:00 02:00 Temp 97.8 97.8 Pulse 58 40 38 Resp 29 24 32 B/P (MAP) 178/72 (107) 178/74 (108) 177/64 (101) Pulse Ox 93 94 93 O2 Delivery Nasal Cannula BiPAP/CPAP BiPAP/CPAP BiPAP/CPAP O2 Flow Rate 40.0 06/07/20 06/07/20 06/07/20 06/07/20 02:26 03:00 04:00 04:00 Temp 97.8 97.8 Pulse 40 42 Resp 36 24 B/P (MAP) 156/58 (90) 152/60 (90) Pulse Ox 93 95 92 O2 Delivery BiPAP/CPAP BiPAP/CPAP BiPAP/CPAP O2 Flow Rate 40.0 06/07/20 06/07/20 06/07/20 06/07/20 04:30 05:00 06:00 07:00 Pulse 58 52 56 Resp 20 23 22 B/P (MAP) 152/61 (91) 170/86 (114) 155/69 (97) Pulse Ox 95 97 97 O2 Delivery Bi-pap BiPAP/CPAP BiPAP/CPAP BiPAP/CPAP 06/07/20 06/07/20 06/07/20 06/07/20 07:40 08:00 08:00 09:00 Temp 97.8 97.8 Pulse 58 56 Resp 25 23 B/P (MAP) 149/59 (89) 165/68 (100) Pulse Ox 95 96 95 O2 Delivery BiPAP/CPAP BiPAP/CPAP Bi-pap Vapotherm O2 Flow Rate 40.0 06/07/20 06/07/20 06/07/20 06/07/20 09:08 09:09 09:09 09:10 Pulse 54 54 54 54 B/P (MAP) 165/68 165/64 165/68 165/68 06/07/20 06/07/20 10:00 11:00 Pulse 55 62 Resp 29 29 B/P (MAP) 137/59 (85) 189/78 (115) Pulse Ox 96 95 O2 Delivery Vapotherm Vapotherm O2 Flow Rate 40.0 40.0 Intake and Output 06/06/20 06/06/20 06/07/20 15:00 23:00 07:00 Intake Total 800 ml 300 ml 150 ml Output Total 520 ml 170 ml 520 ml Balance 280 ml 130 ml -370 ml Justicifation of Admission Dx: Justifications for Admission: Justification of Admission Dx: Yes Altered Mental Status: Altered Mental Status REZA RUST MD Jun 07, 2020 11:37
[2020-06-07 12:18] LABS: FIO2 ABG 75
--- NOTE | 2020-06-07 14:04 | NUR ---
SS following up with discharge planning. SS reviewed pt chart and discussed with pt RN. Pt COVID19 positive. Pt on Vapotherm and BIPAP. Pt was accepted at [facility], ; fax [phone]. [facility] insurance declined authorization. Appeal being initiated at this time. SS phoned and faxed clinical updates to [facility]. SS will continue to follow for discharge planning.
[2020-06-07] MEDS: INSULIN GLARGINE SYRINGE. SQ SCH (20:47)
[2020-06-07] MEDS: ATORVASTATIN CALCIUM 40 MG TABLET. PO SCH (20:48)
[2020-06-08] VITALS (23 sets, daily range): BP systolic 102–162; BP diastolic 51–82
--- NOTE | 2020-06-08 08:07 | PDOC ---
Infectious Disease Note Subjective Subjective pt is awake, says breathing ok ROS ROS No nausea vomiting diarrhea Vital Sign Vital Signs Vital Signs Date Time Temp Pulse Resp B/P (MAP) Pulse Ox O2 Delivery O2 Flow Rate FiO2 06/08/20 03:00 62 24 138/62 (87) 92 BiPAP/CPAP 06/07/20 23:59 98.2 98.2 06/07/20 17:00 40.0 Physical Exam PHYSICAL EXAM GENERAL: Propped up in bed, alert, calm - appears comfortable HEENT: On BiPAP NECK: Supple. LUNGS: CTA HEART: S1, S2. regular ABDOMEN: Obese, soft, nontender : Galan in place EXTREMITIES: trace edema lower extremities bilaterally. No cyanosis DERMATOLOGIC: Warm, dry. No generalized rash. NEUROLOGIC: Alert, responds appropriately Labs Lab Laboratory Tests Test 06/07/20 09:17 06/07/20 13:17 06/07/20 17:24 06/07/20 20:54 Glucose (Fingerstick) 245 mg/dL (70-99) 281 mg/dL (70-99) 295 mg/dL (70-99) 355 mg/dL (70-99) Micro Microbiology 05/26/20 Gram Stain Evaluation - Final, Complete 05/26/20 Respiratory Culture - Final, Complete 05/24/20 Blood Culture - Final, Complete NO GROWTH AFTER 5 DAYS 05/18/20 Urine Culture - Final, Complete Objective Assessment COVID + 05/30 - COVID-19 negative on 05/18/2020 and 05/19/2020. Remdesivir started 06/01 Acute hypoxic respiratory failure - on Bipap Pneumonia. sputum cx: Resp gerri. Off vanc/Zosyn/doxy. Off Augmentin Fever - now resolved Leukocytosis, on steroids. CHF Hypoglycemic encephalopathy, resolved. Diabetes. Hypertension. Severe protein-calorie malnutrition. Gram-positive cocci bacteremia, 05/18/2020, 1 out of 2 bottles, ID MICROCOCCUS SPECIES, likely a contaminant. Plan Plan of Care Steroids/Remdesivir per pulm off abx Nystatin SWSW, 05/27 Maintain aspiration precautions Supportive care D/w nursing BYRON REDMOND MD Jun 08, 2020 08:07
[2020-06-08] MEDS: PANTOPRAZOLE 40 MG TABLET.DR. PO SCH (08:21)
[2020-06-08] MEDS: LACTOBACILLUS RHAMNOSUS GG 1 CAPSULE. PO SCH ×2 (08:22→21:21)
[2020-06-08] MEDS: hydroCHLOROthiazide 12.5 MG CAPSULE PO SCH (08:22)
[2020-06-08] MEDS: methIMAzole 10 MG TABLET PO SCH ×2 (08:22→21:21)
[2020-06-08] MEDS: NYSTATIN 100,000 UNITS/ML 5 ML ORAL.SUSP. SWSW SCH ×4 (08:22→21:19)
[2020-06-08] MEDS: LISINOPRIL 20 MG TABLET PO SCH (08:22)
[2020-06-08] MEDS: METOPROLOL TART IMMED RELEASE 50 MG TABLET. PO SCH (08:23)
[2020-06-08] MEDS: amLODIPine BESYLATE 5 MG TABLET PO SCH (08:23)
[2020-06-08] MEDS: DICLOFENAC SODIUM 25 MG TABLET.DR PO SCH ×2 (08:24→21:20)
[2020-06-08] MEDS: methylPREDNISolone SOD SUCC PF 125 MG/2 ML VIAL. IV SCH ×2 (08:24→21:21)
[2020-06-08] MEDS: ENOXAPARIN 40 MG/0.4 ML SYRINGE. SQ SCH ×2 (08:24→21:21)
[2020-06-08] MEDS: ASPIRIN ENTERIC COATED 81 MG TABLET.DR. PO SCH (08:24)
--- NOTE | 2020-06-08 09:10 | PDOC ---
PULMONARY PROGRESS NOTES Subjective Patient more short of air this morning now on BiPAP Vitals Vital Signs Date Time Temp Pulse Resp B/P (MAP) Pulse Ox O2 Delivery O2 Flow Rate FiO2 06/08/20 08:23 70 152/67 06/08/20 03:00 24 92 BiPAP/CPAP 06/07/20 23:59 98.2 98.2 06/07/20 17:00 40.0 General: Alert Lungs: Clear Cardiovascular: S1, S2 Abdomen: Soft Neuro Exam: Alert Extremities: Other (+2 BLE ) Skin: Warm Labs Laboratory Tests Test 06/06/20 13:03 06/06/20 17:44 06/06/20 22:36 06/07/20 07:40 Glucose (Fingerstick) 142 mg/dL (70-99) 129 mg/dL (70-99) 339 mg/dL (70-99) O2 Saturation 95 % (92-99) Arterial Blood pH 7.45 (7.35-7.45) Arterial Blood pCO2 at Patient Temp 42 mmHg (35-46) Arterial Blood pO2 at Patient Temp 78 mmHg (65-108) Arterial Blood HCO3 29 mmol/L (21-28) Arterial Blood Base Excess 5 mmol/L (-3-3) FiO2 75 Test 06/07/20 09:17 06/07/20 13:17 06/07/20 17:24 06/07/20 20:54 Glucose (Fingerstick) 245 mg/dL (70-99) 281 mg/dL (70-99) 295 mg/dL (70-99) 355 mg/dL (70-99) Test 06/08/20 08:47 Glucose (Fingerstick) 176 mg/dL (70-99) Laboratory Tests Test 06/07/20 09:17 06/07/20 13:17 06/07/20 17:24 06/07/20 20:54 Glucose (Fingerstick) 245 mg/dL (70-99) 281 mg/dL (70-99) 295 mg/dL (70-99) 355 mg/dL (70-99) Test 06/08/20 08:47 Glucose (Fingerstick) 176 mg/dL (70-99) Medications Active Scripts Medications Dose Route/Sig Max Daily Dose Days Date Category Actos (Pioglitazone Hcl) 45 Mg Tablet 1 Tab PO DAILY 30 05/18/20 Reported Diclofenac Sodium 75 Mg Tablet.dr 1 Tab PO BID 05/18/20 Reported Klor-Con 10 (Potassium Chloride) 10 Meq Tablet.er 1 Tab PO DAILY 30 05/18/20 Reported Metformin Hcl 1,000 Mg Tablet 1,000 Mg PO BIDWMEALS 05/18/20 Reported Omeprazole 20 Mg Capsule.dr 1 Cap PO DAILY 05/18/20 Reported Lisinopril-Hctz 20-25 Mg Tab (Lisinopril/Hydrochlorothiazide) 1 Each Tablet 1 Tab PO DAILY 05/18/20 Reported Aspirin Ec (Aspirin) 81 Mg Tablet.dr 1 Tab PO DAILY 05/18/20 Reported Hydralazine Hcl 100 Mg Tablet 1 Tab PO BID 05/18/20 Reported Metoprolol Tartrate 50 Mg Tablet 1 Tab PO BID 05/18/20 Reported Rosuvastatin Calcium 10 Mg Tablet 10 Mg PO DAILY 05/18/20 Reported Comments CXR : reviewed Moderate bilateral infiltrates could be secondary to atypical pneumonia or CHF. This appears similar to the prior study although there is improved aeration of the left lung base. Impression . IMPRESSION: 1. Acute hypoxic respiratory failure secondary to COVID-19 2. Abnormal chest x-ray/ARDS 3. Fever, resolved 4. Hypoglycemic encephalopathy, resolved. 5. Severe protein-calorie malnutrition. 6. Mild azotemia. 7. SARS-CoV-2 negative x2, May 18, May 19 8. Negative blood cultures 9. Possible Boop 10. Negative CT angiogram for PE 11. Acute lung injury 11. SARS-CoV-2 positive on May 31/COVID- cxr 06/08 IMPRESSION: Moderate prominent bilateral interstitial lung markings likely congestive changes or interstitial infiltrates. Follow-up to resolution. Impression: CT Chest 1. No evidence of pulmonary embolism. 2. Mild left effusion and moderate bilateral infiltrates right worse than left. This could be ARDS or pulmonary edema or atypical pneumonia. Plan . I/V Lasix Will continue current support PRN BiPAP D-dimer noted, continue Lovenox twice daily Continue antiviral, SARS COVID 2, reported positive from 05/31, s/p Remdesivir cont steroid Diuresis, as needed ABX per ID DM per IM HTN per IM PT/OT D/W RN and RT KING WHITTINGTON MD Jun 08, 2020 09:10
[2020-06-08] MEDS: INSULIN LISPRO 300 UNITS/3 ML VIAL. SQ SCH ×3 (09:21→18:27)
--- NOTE | 2020-06-08 09:27 | NUR ---
Pt was placed on Vapotherm 40L/100% this AM at 0730, oxygen saturation 90%. Pt began eating and started to desat to the 70s-- pt not recovering. Bipap placed back on pt due to oxygen dropping down to the 60s.
--- NOTE | 2020-06-08 10:53 | RAD ---
EXAM: CHEST 1 VIEW History: Increased work of breathing COMPARISON: 06/07/2020 TECHNIQUE: Single portable radiograph of the chest FINDINGS: Low lung volumes and technique accentuates heart and pulmonary vascularity. Moderate prominent bilateral interstitial lung markings likely congestive changes or interstitial infiltrates.. IMPRESSION: Moderate prominent bilateral interstitial lung markings likely congestive changes or interstitial infiltrates. Follow-up to resolution. Electronically signed by: Ton Hinds MD (06/08/2020 10:50 AM) [email or web address]
[2020-06-08] MEDS ORDERED: FUROSEMIDE 40 MG/4 ML VIAL. IVP ONE (11:00)
[2020-06-08 11:56] LABS: BASO % 0 % (0-3); EOS % 0 % (0-3); HEMATOCRIT 29.4 % (36.0-47.0); HEMOGLOBIN 9.5 g/dL (12.0-15.5); LYMPH # 0.3 x10^3/uL (1.0-4.8); LYMPH % 2 % (24-48); MEAN CORPUSCULAR HEMOGLOBIN 27 pg (25-35); MEAN CORPUSCULAR HGB CONC 32 g/dL (31-37); MEAN CORPUSCULAR VOLUME 84 fL (79-100); MONO # 0.4 x10^3/uL (0.0-1.1); MONO % 2 % (0-9); NEUT # 22.4 x10^3/uL (1.8-7.7); NEUT % 97 % (31-73); PLATELET COUNT 253 x10^3/uL (140-400); RED BLOOD COUNT 3.51 x10^6/uL (3.50-5.40); RED CELL DISTRIBUTION WIDTH 18.5 % (11.5-14.5); WHITE BLOOD COUNT 23.2 x10^3/uL (4.0-11.0)
[2020-06-08 11:57] LABS: CALCIUM 7.4 mg/dL (8.5-10.1); CREATININE 0.8 mg/dL (0.6-1.0); GFR 71.3; POTASSIUM 3.8 mmol/L (3.5-5.1)
[2020-06-08 12:03] LABS: ALBUMIN 1.9 g/dL (3.4-5.0); ALBUMIN/GLOBULIN RATIO 0.5 (1.0-1.7); TOTAL BILIRUBIN 0.5 mg/dL (0.2-1.0); TOTAL PROTEIN 5.5 g/dL (6.4-8.2)
--- NOTE | 2020-06-08 12:14 | NUR ---
SS following up with discharge planning. SS reviewed pt chart and discussed with pt RN. Pt COVID19 positive and on vapotherm and BIPAP. SS currently awaiting on appeal decision from [facility] for [facility], ; fax [phone]. SS will continue to follow for discharge planning.
[2020-06-08 12:21] LABS: % BANDS 5 % (0-9); % LYMPHS 1 % (24-48); % MONOS 2 % (0-10); % SEGS 92 % (35-66); PLT ESTIMATE ADEQUATE (ADEQUATE); POLYCHROMASIA PRESENT
[2020-06-08 12:22] LABS: ANISOCYTOSIS SLIGHT
[2020-06-08] MEDS: STERILE WATER for RESP 1,000 ML BAG. INH PRN (13:30)
--- NOTE | 2020-06-08 13:57 | PDOC ---
PROGRESS NOTES Chief Complaint Chief Complaint Acute hypoxic respiratory failure secondary to multifocal infiltrate/pleural effusions Sepsis Hyperthyroidism likely Graves Dz Hypoglycemic encephalopathy, IMPROVING Severe protein-calorie malnutrition. DM2, HTN urinary retention, pain COVID + 05/30 - COVID-19 negative on 05/18/2020 and 05/19/2020. Remdesivir started 06/01 Pneumonia. sputum cx: Resp gerri. Off vanc/Zosyn/doxy. Off Augmentin CHF Severe protein-calorie malnutrition Gram-positive cocci bacteremia, 05/18/2020, 1 out of 2 bottles, ID MICROCOCCUS SPECIES, likely a contaminant. plan: chest xray looks wet. dose of lasix today. steroids IV, remdesevir per pulm follow labs. white count rising but on IV steroids. hold BB History of Present Illness History of Present Illness 05/30 transfer to ICU for hypoxia, urinary retention, maldonado placed, had been striaight cath, 06/01, still hypoxia, some dyspena, on bipap COVID was pos. Started on remdisivir 06/02: Increased shortness of breath. On BIPAP overnight, transitioned to vapotherm. No cough/F/C/aches/nausea. Feels better. Family contacting nursing staff frequently. 06/03:Afebrile. Still with increased inflammatory markers. Overall feels better. Required Vapotherm during the day was on BiPAP overnight. Sodium up to 150 today, ABG 7.51/40 , placed back on BiPAP, no complaints except she is very tired. 06/04: Afebrile. WBC 16.4. Glucose 40 this morning. Asking to eat. On BIPAP. Remdesivir to initiate per pulm recommendations based on her clinical course. Change glargine from BID to QHS, cut dosing by 40%. 06/05: Afebrile, on Vapotherm. Hypoglycemic to 48 this morning despite insulin reduction. She is asking for milk. States she feels much better. Is somewhat confused disoriented today and location. 06/06: Afebrile. WBC 14. On vapotherm. glucose normalized. No complaints. Is a bit confused. Vitals Vitals Vital Signs Date Time Temp Pulse Resp B/P (MAP) Pulse Ox O2 Delivery O2 Flow Rate FiO2 06/08/20 13:00 74 40 102/82 (89) 90 Vapotherm 40.0 06/08/20 12:00 99.6 99.6 Physical Exam Physical Exam GENERAL: Propped up in bed, alert, calm - appears comfortable HEENT: On BiPAP NECK: Supple. LUNGS: CTA HEART: S1, S2. regular ABDOMEN: Obese, soft, nontender : Maldonado in place EXTREMITIES: trace edema lower extremities bilaterally. No cyanosis DERMATOLOGIC: Warm, dry. No generalized rash. NEUROLOGIC: Alert, responds appropriately General: Alert, Cooperative, No acute distress Heart: Regular rate, Normal S1, Normal S2, No murmurs Lungs: Clear Abdomen: Normal bowel sounds, Soft, No tenderness, No hepatosplenomegaly Labs LABS Laboratory Tests Test 06/07/20 17:24 06/07/20 20:54 06/08/20 08:47 06/08/20 11:35 Glucose (Fingerstick) 295 mg/dL (70-99) 355 mg/dL (70-99) 176 mg/dL (70-99) White Blood Count 23.2 x10^3/uL (4.0-11.0) Red Blood Count 3.51 x10^6/uL (3.50-5.40) Hemoglobin 9.5 g/dL (12.0-15.5) Hematocrit 29.4 % (36.0-47.0) Mean Corpuscular Volume 84 fL (79-100) Mean Corpuscular Hemoglobin 27 pg (25-35) Mean Corpuscular Hemoglobin Concent 32 g/dL (31-37) Red Cell Distribution Width 18.5 % (11.5-14.5) Platelet Count 253 x10^3/uL (140-400) Neutrophils (%) (Auto) 97 % (31-73) Lymphocytes (%) (Auto) 2 % (24-48) Monocytes (%) (Auto) 2 % (0-9) Eosinophils (%) (Auto) 0 % (0-3) Basophils (%) (Auto) 0 % (0-3) Neutrophils # (Auto) 22.4 x10^3/uL (1.8-7.7) Lymphocytes # (Auto) 0.3 x10^3/uL (1.0-4.8) Monocytes # (Auto) 0.4 x10^3/uL (0.0-1.1) Eosinophils # (Auto) 0.0 x10^3/uL (0.0-0.7) Basophils # (Auto) 0.0 x10^3/uL (0.0-0.2) Segmented Neutrophils % 92 % (35-66) Band Neutrophils % 5 % (0-9) Lymphocytes % 1 % (24-48) Monocytes % 2 % (0-10) Platelet Estimate Adequate (ADEQUATE) Polychromasia Present Basophilic Stippling Present Anisocytosis Slight Sodium Level 146 mmol/L (136-145) Potassium Level 3.8 mmol/L (3.5-5.1) Chloride Level 108 mmol/L (98-107) Carbon Dioxide Level 31 mmol/L (21-32) Anion Gap 7 (6-14) Blood Urea Nitrogen 33 mg/dL (7-20) Creatinine 0.8 mg/dL (0.6-1.0) Estimated GFR (Cockcroft-Gault) 71.3 BUN/Creatinine Ratio 41 (6-20) Glucose Level 158 mg/dL (70-99) Calcium Level 7.4 mg/dL (8.5-10.1) Magnesium Level 1.9 mg/dL (1.8-2.4) Total Bilirubin 0.5 mg/dL (0.2-1.0) Aspartate Amino Transf (AST/SGOT) 26 U/L (15-37) Alanine Aminotransferase (ALT/SGPT) 41 U/L (14-59) Alkaline Phosphatase 222 U/L (46-116) Total Protein 5.5 g/dL (6.4-8.2) Albumin 1.9 g/dL (3.4-5.0) Albumin/Globulin Ratio 0.5 (1.0-1.7) Test 06/08/20 12:35 Glucose (Fingerstick) 161 mg/dL (70-99) Assessment and Plan Assessmemt and Plan Problems Medical Problems: (1) Altered mental status Status: Acute (2) Hypoglycemia Status: Acute (3) Hypothermia Status: Acute Comment Review of Relevant I have reviewed the following items kavya (where applicable) has been applied. Labs Laboratory Tests Test 06/06/20 17:44 06/06/20 22:36 06/07/20 07:40 06/07/20 09:17 Glucose (Fingerstick) 129 mg/dL (70-99) 339 mg/dL (70-99) 245 mg/dL (70-99) O2 Saturation 95 % (92-99) Arterial Blood pH 7.45 (7.35-7.45) Arterial Blood pCO2 at Patient Temp 42 mmHg (35-46) Arterial Blood pO2 at Patient Temp 78 mmHg (65-108) Arterial Blood HCO3 29 mmol/L (21-28) Arterial Blood Base Excess 5 mmol/L (-3-3) FiO2 75 Test 06/07/20 13:17 06/07/20 17:24 06/07/20 20:54 06/08/20 08:47 Glucose (Fingerstick) 281 mg/dL (70-99) 295 mg/dL (70-99) 355 mg/dL (70-99) 176 mg/dL (70-99) Test 06/08/20 11:35 06/08/20 12:35 White Blood Count 23.2 x10^3/uL (4.0-11.0) Red Blood Count 3.51 x10^6/uL (3.50-5.40) Hemoglobin 9.5 g/dL (12.0-15.5) Hematocrit 29.4 % (36.0-47.0) Mean Corpuscular Volume 84 fL (79-100) Mean Corpuscular Hemoglobin 27 pg (25-35) Mean Corpuscular Hemoglobin Concent 32 g/dL (31-37) Red Cell Distribution Width 18.5 % (11.5-14.5) Platelet Count 253 x10^3/uL (140-400) Neutrophils (%) (Auto) 97 % (31-73) Lymphocytes (%) (Auto) 2 % (24-48) Monocytes (%) (Auto) 2 % (0-9) Eosinophils (%) (Auto) 0 % (0-3) Basophils (%) (Auto) 0 % (0-3) Neutrophils # (Auto) 22.4 x10^3/uL (1.8-7.7) Lymphocytes # (Auto) 0.3 x10^3/uL (1.0-4.8) Monocytes # (Auto) 0.4 x10^3/uL (0.0-1.1) Eosinophils # (Auto) 0.0 x10^3/uL (0.0-0.7) Basophils # (Auto) 0.0 x10^3/uL (0.0-0.2) Segmented Neutrophils % 92 % (35-66) Band Neutrophils % 5 % (0-9) Lymphocytes % 1 % (24-48) Monocytes % 2 % (0-10) Platelet Estimate Adequate (ADEQUATE) Polychromasia Present Basophilic Stippling Present Anisocytosis Slight Sodium Level 146 mmol/L (136-145) Potassium Level 3.8 mmol/L (3.5-5.1) Chloride Level 108 mmol/L (98-107) Carbon Dioxide Level 31 mmol/L (21-32) Anion Gap 7 (6-14) Blood Urea Nitrogen 33 mg/dL (7-20) Creatinine 0.8 mg/dL (0.6-1.0) Estimated GFR (Cockcroft-Gault) 71.3 BUN/Creatinine Ratio 41 (6-20) Glucose Level 158 mg/dL (70-99) Calcium Level 7.4 mg/dL (8.5-10.1) Magnesium Level 1.9 mg/dL (1.8-2.4) Total Bilirubin 0.5 mg/dL (0.2-1.0) Aspartate Amino Transf (AST/SGOT) 26 U/L (15-37) Alanine Aminotransferase (ALT/SGPT) 41 U/L (14-59) Alkaline Phosphatase 222 U/L (46-116) Total Protein 5.5 g/dL (6.4-8.2) Albumin 1.9 g/dL (3.4-5.0) Albumin/Globulin Ratio 0.5 (1.0-1.7) Glucose (Fingerstick) 161 mg/dL (70-99) Laboratory Tests Test 06/07/20 17:24 06/07/20 20:54 06/08/20 08:47 06/08/20 11:35 Glucose (Fingerstick) 295 mg/dL (70-99) 355 mg/dL (70-99) 176 mg/dL (70-99) White Blood Count 23.2 x10^3/uL (4.0-11.0) Red Blood Count 3.51 x10^6/uL (3.50-5.40) Hemoglobin 9.5 g/dL (12.0-15.5) Hematocrit 29.4 % (36.0-47.0) Mean Corpuscular Volume 84 fL (79-100) Mean Corpuscular Hemoglobin 27 pg (25-35) Mean Corpuscular Hemoglobin Concent 32 g/dL (31-37) Red Cell Distribution Width 18.5 % (11.5-14.5) Platelet Count 253 x10^3/uL (140-400) Neutrophils (%) (Auto) 97 % (31-73) Lymphocytes (%) (Auto) 2 % (24-48) Monocytes (%) (Auto) 2 % (0-9) Eosinophils (%) (Auto) 0 % (0-3) Basophils (%) (Auto) 0 % (0-3) Neutrophils # (Auto) 22.4 x10^3/uL (1.8-7.7) Lymphocytes # (Auto) 0.3 x10^3/uL (1.0-4.8) Monocytes # (Auto) 0.4 x10^3/uL (0.0-1.1) Eosinophils # (Auto) 0.0 x10^3/uL (0.0-0.7) Basophils # (Auto) 0.0 x10^3/uL (0.0-0.2) Segmented Neutrophils % 92 % (35-66) Band Neutrophils % 5 % (0-9) Lymphocytes % 1 % (24-48) Monocytes % 2 % (0-10) Platelet Estimate Adequate (ADEQUATE) Polychromasia Present Basophilic Stippling Present Anisocytosis Slight Sodium Level 146 mmol/L (136-145) Potassium Level 3.8 mmol/L (3.5-5.1) Chloride Level 108 mmol/L (98-107) Carbon Dioxide Level 31 mmol/L (21-32) Anion Gap 7 (6-14) Blood Urea Nitrogen 33 mg/dL (7-20) Creatinine 0.8 mg/dL (0.6-1.0) Estimated GFR (Cockcroft-Gault) 71.3 BUN/Creatinine Ratio 41 (6-20) Glucose Level 158 mg/dL (70-99) Calcium Level 7.4 mg/dL (8.5-10.1) Magnesium Level 1.9 mg/dL (1.8-2.4) Total Bilirubin 0.5 mg/dL (0.2-1.0) Aspartate Amino Transf (AST/SGOT) 26 U/L (15-37) Alanine Aminotransferase (ALT/SGPT) 41 U/L (14-59) Alkaline Phosphatase 222 U/L (46-116) Total Protein 5.5 g/dL (6.4-8.2) Albumin 1.9 g/dL (3.4-5.0) Albumin/Globulin Ratio 0.5 (1.0-1.7) Test 06/08/20 12:35 Glucose (Fingerstick) 161 mg/dL (70-99) Microbiology 05/26/20 Gram Stain Evaluation - Final, Complete 05/26/20 Respiratory Culture - Final, Complete 05/24/20 Blood Culture - Final, Complete NO GROWTH AFTER 5 DAYS 05/18/20 Urine Culture - Final, Complete Medications Current Medications Sodium Chloride 1,000 ml @ 1,000 mls/hr 1X ONCE IV Last administered on 05/18/20at 09:29; Start 05/18/20 at 09:15; Stop 05/18/20 at 10:14; Status DC Ceftriaxone Sodium (Rocephin) 1 gm 1X ONCE IVP Last administered on 05/18/20at 09:28; Start 05/18/20 at 09:15; Stop 05/18/20 at 09:16; Status DC Ondansetron HCl (Zofran) 4 mg PRN Q8HRS PRN IV NAUSEA/VOMITING; Start 05/18/20 at 10:15; Stop 05/18/20 at 16:24; Status DC Acetaminophen (Tylenol) 650 mg PRN Q4HRS PRN PO FEVER > 100.3'F; Start 05/18/20 at 10:15; Stop 05/18/20 at 16:24; Status DC Ceftriaxone Sodium (Rocephin) 1 gm Q24H IVP Last administered on 05/24/20at 09:09; Start 05/19/20 at 09:00; Stop 05/24/20 at 18:10; Status DC Sodium Chloride (Normal Saline Flush) 3 ml QSHIFT PRN IV AFTER MEDS AND BLOOD DRAWS; Start 05/18/20 at 16:30 Sodium Chloride 1,000 ml @ 85 mls/hr [id number] IV Last administered on 05/24/20at 18:31; Start 05/18/20 at 16:20; Stop 05/25/20 at 09:44; Status DC Ondansetron HCl (Zofran) 4 mg PRN Q4HRS PRN IV NAUSEA/VOMITING; Start 05/18/20 at 16:30 Acetaminophen (Tylenol) 650 mg PRN Q4HRS PRN PO TEMP OVER 100.4F OR MILD PAIN Last administered on 05/30/20at 20:09; Start 05/18/20 at 16:30 Acetaminophen (Tylenol Supp) 650 mg PRN Q4HRS PRN CO TEMP OVER 100.4F OR MILD PAIN; Start 05/18/20 at 16:30 Sodium Monofluorophosphate (Fleet Adult) 133 ml PRN DAILY PRN CO CONSTIPATION; Start 05/18/20 at 16:30 Docusate Sodium (Colace) 100 mg PRN BID PRN PO HARD STOOLS Last administered on 06/06/20at 08:40; Start 05/18/20 at 16:30 Albuterol Sulfate (Ventolin Neb Soln) 2.5 mg PRN Q4HRS PRN NEB SHORTNESS OF BREATH Last administered on 05/21/20at 18:14; Start 05/18/20 at 16:30; Stop 05/31/20 at 16:19; Status DC Guaifenesin (Robitussin) 200 mg PRN Q4HRS PRN PO COUGH Last administered on 05/23/20at 20:00; Start 05/18/20 at 16:30 Enoxaparin Sodium (Lovenox 40mg Syringe) 40 mg Q24H SQ Last administered on 05/31/20at 17:03; Start 05/18/20 at 17:00; Stop 06/01/20 at 10:27; Status DC Aspirin (Ecotrin) 81 mg DAILY PO Last administered on 06/08/20at 08:24; Start 05/19/20 at 09:00 Metoprolol Tartrate (Lopressor) 50 mg BID PO Last administered on 05/21/20at 09:16; Start 05/19/20 at 09:00; Stop 05/21/20 at 15:45; Status DC Diclofenac Sodium (Voltaren) 75 mg BID PO Last administered on 06/03/20at 20:29; Start 05/19/20 at 10:00; Stop 06/04/20 at 08:03; Status DC Hydralazine HCl (Apresoline) 100 mg BID PO Last administered on 05/21/20 09:15; Start 05/19/20 at 09:00; Stop 05/21/20 at 15:45; Status DC Lisinopril (Prinivil) 20 mg DAILY PO Last administered on 05/21/20 09:16; Start 05/19/20 at 10:00; Stop 05/21/20 at 15:45; Status DC Pantoprazole Sodium (Protonix) 40 mg DAILYAC PO Last administered on 06/08/20 08:21; Start 05/19/20 at 10:00 Atorvastatin Calcium (Lipitor) 40 mg QHS PO Last administered on 06/07/20 20:48; Start 05/19/20 at 21:00 Hydrochlorothiazide (Hydrodiuril) 25 mg DAILY PO Last administered on 05/23/20 08:59; Start 05/19/20 at 10:00; Stop 05/23/20 at 10:22; Status DC Lactobacillus Rhamnosus (Culturelle) 1 cap BID PO Last administered on 06/08/20 08:22; Start 05/19/20 at 21:00 Insulin Human Lispro (HumaLOG) 0-7 UNITS TIDWMEALS SQ Last administered on 06/08/20 13:10; Start 05/19/20 at 17:00 Dextrose (Dextrose 50%-Water Syringe) 12.5 gm PRN Q15MIN PRN IV SEE COMMENTS Last administered on 06/04/20 06:52; Start 05/19/20 at 14:15 Methimazole (Tapazole) 5 mg BID PO Last administered on 06/08/20 08:22; Start 05/20/20 at 10:00 Insulin Glargine (Lantus Syringe) 5 unit DAILY SQ Last administered on 05/22/20 09:15; Start 05/21/20 at 09:00; Stop 05/22/20 at 21:05; Status DC Doxycycline Hyclate (Vibra-Tab) 100 mg BID PO Last administered on 05/28/20 08:53; Start 05/21/20 at 15:00; Stop 05/28/20 at 15:02; Status DC Furosemide (Lasix) 20 mg 1X ONCE IVP Last administered on 05/21/20at 17:05; Start 05/21/20 at 17:00; Stop 05/21/20 at 17:01; Status DC Sterile Water (WATER for RESP) 1,000 ml CONT PRN INH VIA VAPOTHERM DEVICE Last administered on 05/23/20at 16:26; Start 05/21/20 at 17:15; Stop 05/30/20 at 12:58; Status DC Albuterol Sulfate (Ventolin Neb Soln) 2.5 mg Q4HRS NEB Last administered on 05/30/20at 15:45; Start 05/21/20 at 20:00; Stop 05/31/20 at 16:19; Status DC Vancomycin HCl (Vanco Per Pharmacy) 1 each PRN DAILY PRN MC SEE COMMENTS Last administered on 05/25/20at 23:52; Start 05/22/20 at 09:00; Stop 05/27/20 at 16:29; Status DC Vancomycin HCl 2 gm/Sodium Chloride 500 ml @ 250 mls/hr 1X ONCE IV Last administered on 05/22/20at 09:05; Start 05/22/20 at 09:00; Stop 05/22/20 at 10:59; Status DC Vancomycin HCl 1.25 gm/Sodium Chloride 250 ml @ 167 mls/hr Q24H IV Last administered on 05/23/20at 09:00; Start 05/23/20 at 09:00; Stop 05/24/20 at 10:05; Status DC Vancomycin HCl (Vancomycin Trough Level) 1 each 1X ONCE MC Last administered on 05/24/20at 08:30; Start 05/24/20 at 08:30; Stop 05/24/20 at 08:31; Status DC Methylprednisolone Sodium Succinate (SOLU-Medrol 125MG VIAL) 80 mg Q8HRS IV Last administered on 05/27/20at 06:04; Start 05/22/20 at 14:00; Stop 05/27/20 at 12:02; Status DC Insulin Glargine (Lantus Syringe) 10 unit BID SQ Last administered on 05/23/20at 09:11; Start 05/22/20 at 21:00; Stop 05/23/20 at 20:17; Status DC Metoprolol Tartrate (Lopressor) 50 mg BID PO Last administered on 06/08/20at 08:23; Start 05/23/20 at 10:30; Stop 06/08/20 at 10:43; Status DC Hydrochlorothiazide (Microzide) 12.5 mg DAILY PO Last administered on 06/08/20 08:22; Start 05/24/20 at 09:00 Potassium Chloride (Klor-Con) 40 meq Q2H PO Last administered on 05/23/20at 14:58; Start 05/23/20 at 10:30; Stop 05/23/20 at 14:31; Status DC Lisinopril (Prinivil) 40 mg DAILY PO Last administered on 06/08/20at 08:22; Start 05/23/20 at 10:30 Hydralazine HCl (Apresoline) 100 mg BID PO Last administered on 06/08/20at 08:23; Start 05/23/20 at 10:30 Insulin Glargine (Lantus Syringe) 10 unit BID SQ Last administered on 05/24/20at 09:14; Start 05/23/20 at 21:00; Stop 05/24/20 at 11:28; Status DC Vancomycin HCl 1.25 gm/Sodium Chloride 250 ml @ 167 mls/hr Q12H IV Last administered on 05/27/20at 08:21; Start 05/24/20 at 10:30; Stop 05/27/20 at 16:26; Status DC Vancomycin HCl (Vancomycin Trough Level) 1 each 1X ONCE MC Last administered on 05/25/20at 22:00; Start 05/25/20 at 22:00; Stop 05/25/20 at 22:01; Status DC Insulin Glargine (Lantus Syringe) 12 unit BID SQ ; Start 05/24/20 at 21:00; Stop 05/24/20 at 17:27; Status DC Insulin Glargine (Lantus Syringe) 15 unit BID SQ Last administered on 05/25/20at 08:19; Start 05/24/20 at 21:00; Stop 05/25/20 at 09:47; Status DC Insulin Human Lispro (HumaLOG) 7 units 1X ONCE SQ Last administered on 05/24/20at 18:01; Start 05/24/20 at 17:30; Stop 05/24/20 at 17:31; Status DC Piperacillin Sod/ Tazobactam Sod 3.375 gm/Sodium Chloride 50 ml @ 100 mls/hr Q6HRS IV Last administered on 7/3/20at 12:09; Start 05/24/20 at 18:30; Stop 05/28/20 at 15:01; Status DC Insulin Human Lispro (HumaLOG) 11 units 1X SQ ; Start 05/24/20 at 21:30; Status Cancel Insulin Human Lispro (HumaLOG) 11 units 1X ONCE SQ Last administered on 05/24/20at 22:25; Start 05/24/20 at 22:00; Stop 05/24/20 at 22:01; Status DC Furosemide (Lasix) 20 mg 1X ONCE IVP Last administered on 05/25/20at 11:12; Start 05/25/20 at 10:00; Stop 05/25/20 at 10:01; Status DC Insulin Glargine (Lantus Syringe) 18 unit BID SQ Last administered on 05/27/20at 08:33; Start 05/25/20 at 21:00; Stop 05/27/20 at 12:00; Status DC Midazolam HCl (Versed) 2 mg 1X ONCE IV ; Start 05/25/20 at 10:30; Stop 05/25/20 at 10:31; Status Cancel Fentanyl Citrate (Fentanyl 2ml Vial) 50 mcg 1X ONCE IM ; Start 05/25/20 at 10:30; Stop 05/25/20 at 10:31; Status Cancel Hydralazine HCl (Apresoline Inj) 10 mg PRN Q4HRS PRN IVP ELEVATED BP, SEE COMMENTS Last administered on 05/29/20at 11:06; Start 05/25/20 at 16:15 Potassium Chloride (Klor-Con) 40 meq 1X ONCE PO Last administered on 05/26/20at 18:43; Start 05/26/20 at 18:30; Stop 05/26/20 at 18:31; Status DC Insulin Glargine (Lantus Syringe) 22 unit BID SQ Last administered on 05/29/20at 08:24; Start 05/27/20 at 21:00; Stop 05/29/20 at 12:14; Status DC Methylprednisolone Sodium Succinate (SOLU-Medrol 125MG VIAL) 40 mg Q12HR IV Last administered on 05/28/20at 08:52; Start 05/27/20 at 19:00; Stop 05/28/20 at 13:37; Status DC Nystatin (Nystatin Oral Susp) 5 ml [id number] Last administered on 06/08/20at 13:00; Start 05/27/20 at 17:00 Insulin Human Lispro (HumaLOG) 20 units 1X ONCE SQ Last administered on 05/27/20at 17:32; Start 05/27/20 at 17:30; Stop 05/27/20 at 17:31; Status DC Methylprednisolone Sodium Succinate (SOLU-Medrol 40MG VIAL) 40 mg Q12HR IV Last administered on 05/30/20at 08:34; Start 05/28/20 at 21:00; Stop 05/30/20 at 14:10; Status DC Amoxicillin/ Clavulanate Potassium (Augmentin 875/ 125mg) 1 tab BID PO Last administered on 05/31/20at 19:53; Start 05/28/20 at 21:00; Stop 05/31/20 at 21:01; Status DC Amlodipine Besylate (Norvasc) 2.5 mg DAILY PO Last administered on 06/08/20at 08:23; Start 05/29/20 at 11:45 Furosemide (Lasix) 20 mg 1X ONCE PO Last administered on 05/29/20at 12:40; St art 05/29/20 at 12:30; Stop 05/29/20 at 12:31; Status DC Potassium Chloride (Klor-Con) 20 meq 1X ONCE PO Last administered on 05/29/20at 12:40; Start 05/29/20 at 12:30; Stop 05/29/20 at 12:31; Status DC Insulin Glargine (Lantus Syringe) 25 unit BID SQ Last administered on 06/04/20at 07:58; Start 05/29/20 at 21:00; Stop 06/04/20 at 09:20; Status DC Furosemide (Lasix) 40 mg 1X ONCE IVP Last administered on 05/30/20at 11:47; Start 05/30/20 at 11:15; Stop 05/30/20 at 11:16; Status DC Iohexol (Omnipaque 350 Mg/ml) 100 ml 1X ONCE IV Last administered on 05/30/20at 12:00; Start 05/30/20 at 12:00; Stop 05/30/20 at 12:01; Status DC Info (CONTRAST GIVEN -- Rx MONITORING) 1 each PRN DAILY PRN MC SEE COMMENTS; Start 05/30/20 at 12:15; Stop 06/01/20 at 12:14; Status DC Sterile Water (WATER for RESP) 1,000 ml CONT PRN INH VIA VAPOTHERM DEVICE Last administered on 06/08/20at 13:30; Start 05/30/20 at 13:00 Methylprednisolone Sodium Succinate (SOLU-Medrol 125MG VIAL) 125 mg Q12HR IV Last administered on 06/08/20at 08:24; Start 05/30/20 at 14:15 Enoxaparin Sodium (Lovenox 40mg Syringe) 40 mg BID SQ Last administered on 06/08/20at 08:24; Start 06/01/20 at 21:00 Non-Formulary Medication 1 ea/ Sodium Chloride 210 ml @ 210 mls/hr 1X ONCE IV Last administered on 06/01/20at 17:11; Start 06/01/20 at 16:30; Stop 06/01/20 at 17:29; Status DC Non-Formulary Medication 1 ea/ Sodium Chloride 230 ml @ 460 mls/hr DAILY IV L ast administered on 06/05/20at 17:38; Start 06/02/20 at 09:00; Stop 06/05/20 at 09:29; Status DC Potassium Chloride (Klor-Con) 40 meq 1X ONCE PO Last administered on 06/03/20at 09:51; Start 06/03/20 at 08:00; Stop 06/03/20 at 08:01; Status DC Diclofenac Sodium (Voltaren) 75 mg BID PO ; Start 06/04/20 at 08:03; Stop 06/04/20 at 08:04; Status DC Diclofenac Sodium (Voltaren) 75 mg BID PO Last administered on 06/08/20at 08:24; Start 06/04/20 at 09:00 Insulin Glargine (Lantus Syringe) 30 unit QHS SQ Last administered on 06/04/20at 21:14; Start 06/04/20 at 21:00; Stop 06/05/20 at 10:25; Status DC Insulin Glargine (Lantus Syringe) 15 unit QHS SQ Last administered on 06/07/20at 20:47; Start 06/05/20 at 21:00 Furosemide (Lasix) 40 mg 1X ONCE IVP Last administered on 06/08/20at 11:14; Start 06/08/20 at 11:00; Stop 06/08/20 at 11:02; Status DC Active Scripts Active Reported Actos (Pioglitazone Hcl) 45 Mg Tablet 1 Tab PO DAILY 30 Days Diclofenac Sodium 75 Mg Tablet.dr 1 Tab PO BID Klor-Con 10 (Potassium Chloride) 10 Meq Tablet.er 1 Tab PO DAILY 30 Days Metformin Hcl 1,000 Mg Tablet 1,000 Mg PO BIDWMEALS Omeprazole 20 Mg Capsule.dr 1 Cap PO DAILY Lisinopril-Hctz 20-25 Mg Tab (Lisinopril/Hydrochlorothiazide) 1 Each Tablet 1 Tab PO DAILY Aspirin Ec (Aspirin) 81 Mg Tablet.dr 1 Tab PO DAILY Hydralazine Hcl 100 Mg Tablet 1 Tab PO BID Metoprolol Tartrate 50 Mg Tablet 1 Tab PO BID Rosuvastatin Calcium 10 Mg Tablet 10 Mg PO DAILY Vitals/I & O Vital Sign - Last 24 Hours 06/07/20 06/07/20 06/07/20 06/07/20 14:00 15:00 15:34 16:00 Pulse 62 64 Resp 28 32 B/P (MAP) 158/68 (98) 173/63 (99) Pulse Ox 91 90 94 O2 Delivery Vapotherm Vapotherm VAPOTHERM O2 Flow Rate 40.0 40.0 40.0 40.0 06/07/20 06/07/20 06/07/20 06/07/20 16:00 17:00 17:58 18:00 Temp 98.4 98.4 Pulse 62 64 68 Resp 32 30 30 B/P (MAP) 142/76 (98) 198/85 (122) 135/56 (82) Pulse Ox 93 90 95 86 O2 Delivery Vapotherm Vapotherm BiPAP/CPAP BiPAP/CPAP O2 Flow Rate 40.0 40.0 06/07/20 06/07/20 06/07/20 06/07/20 19:00 20:00 20:00 20:05 Temp 98.1 98.1 Pulse 68 68 Resp 30 30 B/P (MAP) 140/63 (88) 139/72 (94) Pulse Ox 93 93 95 O2 Delivery BiPAP/CPAP Bi-pap BiPAP/CPAP BiPAP/CPAP 06/07/20 06/07/20 06/07/20 06/07/20 20:48 20:49 21:00 22:00 Pulse 68 68 66 Resp 33 B/P (MAP) 140/63 140/63 144/61 (88) Pulse Ox 92 O2 Delivery BiPAP/CPAP Bi-pap 06/07/20 06/07/20 06/07/20 06/07/20 22:00 22:54 23:00 23:59 Temp 98.2 98.2 Pulse 67 63 63 Resp 33 27 27 B/P (MAP) 150/60 (90) 151/65 (93) 146/70 (95) Pulse Ox 94 91 92 90 O2 Delivery BiPAP/CPAP BiPAP/CPAP BiPAP/CPAP BiPAP/CPAP 06/07/20 06/08/20 06/08/20 06/08/20 23:59 01:00 02:00 03:00 Pulse 62 58 62 Resp 27 24 24 B/P (MAP) 150/58 (88) 146/57 (86) 138/62 (87) Pulse Ox 92 91 92 O2 Delivery Bi-pap BiPAP/CPAP BiPAP/CPAP BiPAP/CPAP 06/08/20 06/08/20 06/08/20 06/08/20 07:00 08:00 08:00 08:22 Temp 98.4 98.4 Pulse 56 64 70 Resp 28 45 B/P (MAP) 144/64 (90) 152/67 (95) 152/67 Pulse Ox 90 91 O2 Delivery BiPAP/CPAP Vapotherm O2 Flow Rate 40.0 40.0 06/08/20 06/08/20 06/08/20 06/08/20 08:23 08:23 08:23 09:00 Pulse 70 70 70 77 Resp 43 B/P (MAP) 152/67 152/67 152/67 137/61 (86) Pulse Ox 81 O2 Delivery Vapotherm O2 Flow Rate 40.0 06/08/20 06/08/20 06/08/20 06/08/20 10:00 10:00 11:00 11:35 Pulse 68 64 Resp 34 34 B/P (MAP) 116/60 (78) 122/62 (82) Pulse Ox 97 97 91 96 O2 Delivery [id number] BiPAP/CPAP BiPAP/CPAP [id number] 06/08/20 06/08/20 06/08/20 12:00 12:00 13:00 Temp 99.6 99.6 Pulse 66 74 Resp 40 40 B/P (MAP) 114/55 (74) 102/82 (89) Pulse Ox 94 90 O2 Delivery Vapotherm Vapotherm O2 Flow Rate 40.0 40.0 40.0 Intake and Output 06/07/20 06/07/20 06/08/20 15:00 23:00 07:00 Intake Total 480 ml 600 ml Output Total 425 ml 380 ml 300 ml Balance 55 ml 220 ml -300 ml Justicifation of Admission Dx: Justifications for Admission: Justification of Admission Dx: Yes Altered Mental Status: Altered Mental Status SUYAPA MCCORMICK MD Jun 08, 2020 13:57
[2020-06-08] MEDS: ATORVASTATIN CALCIUM 40 MG TABLET. PO SCH (21:20)
[2020-06-08] MEDS: INSULIN GLARGINE SYRINGE. SQ SCH (21:39)
[2020-06-09] VITALS (23 sets, daily range): BP systolic 118–178; BP diastolic 54–79
--- NOTE | 2020-06-09 06:24 | NUR ---
This verse writer notes that patient has had a few mornings that her blood glucose ranges between 30' to 40's, so blood glucose checked this [id number], to inform nurse in report.
--- NOTE | 2020-06-09 07:48 | PDOC ---
Infectious Disease Note Subjective Subjective pt is awake, says breathing ok ROS ROS no n/v/d/fever Vital Sign Vital Signs Vital Signs Date Time Temp Pulse Resp B/P (MAP) Pulse Ox O2 Delivery O2 Flow Rate FiO2 06/09/20 07:13 96 [id number] 06/09/20 06:00 97.8 55 25 127/59 (81) 97.8 06/09/20 04:11 40.0 Physical Exam PHYSICAL EXAM GENERAL: Propped up in bed, alert, calm - appears comfortable HEENT: On BiPAP NECK: Supple. LUNGS: CTA HEART: S1, S2. regular ABDOMEN: Obese, soft, nontender : Galan in place EXTREMITIES: trace edema lower extremities bilaterally. No cyanosis DERMATOLOGIC: Warm, dry. No generalized rash. NEUROLOGIC: Alert, responds appropriately Labs Lab Laboratory Tests Test 06/08/20 08:47 06/08/20 11:35 06/08/20 12:35 06/08/20 17:49 Glucose (Fingerstick) 176 mg/dL (70-99) 161 mg/dL (70-99) 387 mg/dL (70-99) White Blood Count 23.2 x10^3/uL (4.0-11.0) Red Blood Count 3.51 x10^6/uL (3.50-5.40) Hemoglobin 9.5 g/dL (12.0-15.5) Hematocrit 29.4 % (36.0-47.0) Mean Corpuscular Volume 84 fL (79-100) Mean Corpuscular Hemoglobin 27 pg (25-35) Mean Corpuscular Hemoglobin Concent 32 g/dL (31-37) Red Cell Distribution Width 18.5 % (11.5-14.5) Platelet Count 253 x10^3/uL (140-400) Neutrophils (%) (Auto) 97 % (31-73) Lymphocytes (%) (Auto) 2 % (24-48) Monocytes (%) (Auto) 2 % (0-9) Eosinophils (%) (Auto) 0 % (0-3) Basophils (%) (Auto) 0 % (0-3) Neutrophils # (Auto) 22.4 x10^3/uL (1.8-7.7) Lymphocytes # (Auto) 0.3 x10^3/uL (1.0-4.8) Monocytes # (Auto) 0.4 x10^3/uL (0.0-1.1) Eosinophils # (Auto) 0.0 x10^3/uL (0.0-0.7) Basophils # (Auto) 0.0 x10^3/uL (0.0-0.2) Segmented Neutrophils % 92 % (35-66) Band Neutrophils % 5 % (0-9) Lymphocytes % 1 % (24-48) Monocytes % 2 % (0-10) Platelet Estimate Adequate (ADEQUATE) Polychromasia Present Basophilic Stippling Present Anisocytosis Slight Sodium Level 146 mmol/L (136-145) Potassium Level 3.8 mmol/L (3.5-5.1) Chloride Level 108 mmol/L (98-107) Carbon Dioxide Level 31 mmol/L (21-32) Anion Gap 7 (6-14) Blood Urea Nitrogen 33 mg/dL (-) Creatinine 0.8 mg/dL (0.6-1.0) Estimated GFR (Cockcroft-Gault) 71.3 BUN/Creatinine Ratio 41 (-20) Glucose Level 158 mg/dL (70-99) Calcium Level 7.4 mg/dL (8.5-10.1) Magnesium Level 1.9 mg/dL (1.8-2.4) Total Bilirubin 0.5 mg/dL (0.2-1.0) Aspartate Amino Transf (AST/SGOT) 26 U/L (15-37) Alanine Aminotransferase (ALT/SGPT) 41 U/L (14-59) Alkaline Phosphatase 222 U/L (46-116) Total Protein 5.5 g/dL (6.4-8.2) Albumin 1.9 g/dL (3.4-5.0) Albumin/Globulin Ratio 0.5 (1.0-1.7) Test 06/08/20 21:26 06/09/20 06:03 Glucose (Fingerstick) 266 mg/dL (70-99) 339 mg/dL (70-99) Micro Microbiology 05/26/20 Gram Stain Evaluation - Final, Complete 05/26/20 Respiratory Culture - Final, Complete 05/24/20 Blood Culture - Final, Complete NO GROWTH AFTER 5 DAYS 05/18/20 Urine Culture - Final, Complete Objective Assessment COVID + 7/5 - COVID-19 negative on 05/18/2020 and 05/19/2020. Remdesivir given Acute hypoxic respiratory failure - on Bipap Pneumonia. sputum cx: Resp gerri. Off vanc/Zosyn/doxy. Off Augmentin Fever - now resolved Leukocytosis, on steroids. CHF Hypoglycemic encephalopathy, resolved. Diabetes. Hypertension. Severe protein-calorie malnutrition. Gram-positive cocci bacteremia, 05/18/2020, 1 out of 2 bottles, ID MICROCOCCUS SPECIES, likely a contaminant. Plan Plan of Care Steroids off abx Nystatin SWSW, 05/27 Maintain aspiration precautions Supportive care D/w nursing BYRON REDMOND MD Jun 09, 2020 07:48
[2020-06-09] MEDS: PANTOPRAZOLE 40 MG TABLET.DR. PO SCH (08:39)
[2020-06-09] MEDS: hydroCHLOROthiazide 12.5 MG CAPSULE PO SCH (08:39)
[2020-06-09] MEDS: ASPIRIN ENTERIC COATED 81 MG TABLET.DR. PO SCH (08:39)
[2020-06-09] MEDS: ENOXAPARIN 40 MG/0.4 ML SYRINGE. SQ SCH ×2 (08:39→21:13)
[2020-06-09] MEDS: LACTOBACILLUS RHAMNOSUS GG 1 CAPSULE. PO SCH ×2 (08:40→21:12)
[2020-06-09] MEDS: NYSTATIN 100,000 UNITS/ML 5 ML ORAL.SUSP. SWSW SCH ×4 (08:40→21:13)
[2020-06-09] MEDS: methIMAzole 10 MG TABLET PO SCH ×2 (08:40→21:12)
[2020-06-09] MEDS: amLODIPine BESYLATE 5 MG TABLET PO SCH (08:40)
[2020-06-09] MEDS: LISINOPRIL 20 MG TABLET PO SCH (08:41)
[2020-06-09] MEDS: methylPREDNISolone SOD SUCC PF 125 MG/2 ML VIAL. IV SCH ×2 (08:41→21:13)
[2020-06-09] MEDS: DICLOFENAC SODIUM 25 MG TABLET.DR PO SCH ×2 (08:42→21:12)
[2020-06-09] MEDS: INSULIN LISPRO 300 UNITS/3 ML VIAL. SQ SCH ×3 (09:02→17:43)
--- NOTE | 2020-06-09 09:24 | PDOC ---
PULMONARY PROGRESS NOTES Subjective Better today, yesterday was more short of air, given IV Lasix, started on BiPAP, currently off of BiPAP No chest pain no pressure no increasing shortness of breath Vitals Vital Signs Date Time Temp Pulse Resp B/P (MAP) Pulse Ox O2 Delivery O2 Flow Rate FiO2 06/09/20 09:00 72 30 136/67 (90) 86 Vapotherm 40.0 06/09/20 08:00 97.7 97.7 General: Alert Lungs: Clear Cardiovascular: S1, S2 Abdomen: Soft Neuro Exam: Alert Extremities: Other (+2 BLE ) Skin: Warm Labs Laboratory Tests Test 06/07/20 13:17 06/07/20 17:24 06/07/20 20:54 06/08/20 08:47 Glucose (Fingerstick) 281 mg/dL (70-99) 295 mg/dL (70-99) 355 mg/dL (70-99) 176 mg/dL (70-99) Test 06/08/20 11:35 06/08/20 12:35 06/08/20 17:49 06/08/20 21:26 White Blood Count 23.2 x10^3/uL (4.0-11.0) Red Blood Count 3.51 x10^6/uL (3.50-5.40) Hemoglobin 9.5 g/dL (12.0-15.5) Hematocrit 29.4 % (36.0-47.0) Mean Corpuscular Volume 84 fL (79-100) Mean Corpuscular Hemoglobin 27 pg (25-35) Mean Corpuscular Hemoglobin Concent 32 g/dL (31-37) Red Cell Distribution Width 18.5 % (11.5-14.5) Platelet Count 253 x10^3/uL (140-400) Neutrophils (%) (Auto) 97 % (31-73) Lymphocytes (%) (Auto) 2 % (24-48) Monocytes (%) (Auto) 2 % (0-9) Eosinophils (%) (Auto) 0 % (0-3) Basophils (%) (Auto) 0 % (0-3) Neutrophils # (Auto) 22.4 x10^3/uL (1.8-7.7) Lymphocytes # (Auto) 0.3 x10^3/uL (1.0-4.8) Monocytes # (Auto) 0.4 x10^3/uL (0.0-1.1) Eosinophils # (Auto) 0.0 x10^3/uL (0.0-0.7) Basophils # (Auto) 0.0 x10^3/uL (0.0-0.2) Segmented Neutrophils % 92 % (35-66) Band Neutrophils % 5 % (0-9) Lymphocytes % 1 % (24-48) Monocytes % 2 % (0-10) Platelet Estimate Adequate (ADEQUATE) Polychromasia Present Basophilic Stippling Present Anisocytosis Slight Sodium Level 146 mmol/L (136-145) Potassium Level 3.8 mmol/L (3.5-5.1) Chloride Level 108 mmol/L (98-107) Carbon Dioxide Level 31 mmol/L (21-32) Anion Gap 7 (6-14) Blood Urea Nitrogen 33 mg/dL (7-20) Creatinine 0.8 mg/dL (0.6-1.0) Estimated GFR (Cockcroft-Gault) 71.3 BUN/Creatinine Ratio 41 (-20) Glucose Level 158 mg/dL (70-99) Calcium Level 7.4 mg/dL (8.5-10.1) Magnesium Level 1.9 mg/dL (1.8-2.4) Total Bilirubin 0.5 mg/dL (0.2-1.0) Aspartate Amino Transf (AST/SGOT) 26 U/L (15-37) Alanine Aminotransferase (ALT/SGPT) 41 U/L (14-59) Alkaline Phosphatase 222 U/L (46-116) Total Protein 5.5 g/dL (6.4-8.2) Albumin 1.9 g/dL (3.4-5.0) Albumin/Globulin Ratio 0.5 (1.0-1.7) Glucose (Fingerstick) 161 mg/dL (70-99) 387 mg/dL (70-99) 266 mg/dL (70-99) Test 06/09/20 06:03 06/09/20 08:46 Glucose (Fingerstick) 339 mg/dL (70-99) 335 mg/dL (70-99) Laboratory Tests Test 06/08/20 11:35 06/08/20 12:35 06/08/20 17:49 06/08/20 21:26 White Blood Count 23.2 x10^3/uL (4.0-11.0) Red Blood Count 3.51 x10^6/uL (3.50-5.40) Hemoglobin 9.5 g/dL (12.0-15.5) Hematocrit 29.4 % (36.0-47.0) Mean Corpuscular Volume 84 fL (79-100) Mean Corpuscular Hemoglobin 27 pg (25-35) Mean Corpuscular Hemoglobin Concent 32 g/dL (31-37) Red Cell Distribution Width 18.5 % (11.5-14.5) Platelet Count 253 x10^3/uL (140-400) Neutrophils (%) (Auto) 97 % (31-73) Lymphocytes (%) (Auto) 2 % (24-48) Monocytes (%) (Auto) 2 % (0-9) Eosinophils (%) (Auto) 0 % (0-3) Basophils (%) (Auto) 0 % (0-3) Neutrophils # (Auto) 22.4 x10^3/uL (1.8-7.7) Lymphocytes # (Auto) 0.3 x10^3/uL (1.0-4.8) Monocytes # (Auto) 0.4 x10^3/uL (0.0-1.1) Eosinophils # (Auto) 0.0 x10^3/uL (0.0-0.7) Basophils # (Auto) 0.0 x10^3/uL (0.0-0.2) Segmented Neutrophils % 92 % (35-66) Band Neutrophils % 5 % (0-9) Lymphocytes % 1 % (24-48) Monocytes % 2 % (0-10) Platelet Estimate Adequate (ADEQUATE) Polychromasia Present Basophilic Stippling Present Anisocytosis Slight Sodium Level 146 mmol/L (136-145) Potassium Level 3.8 mmol/L (3.5-5.1) Chloride Level 108 mmol/L (98-107) Carbon Dioxide Level 31 mmol/L (21-32) Anion Gap 7 (6-14) Blood Urea Nitrogen 33 mg/dL (7-20) Creatinine 0.8 mg/dL (0.6-1.0) Estimated GFR (Cockcroft-Gault) 71.3 BUN/Creatinine Ratio 41 (6-20) Glucose Level 158 mg/dL (70-99) Calcium Level 7.4 mg/dL (8.5-10.1) Magnesium Level 1.9 mg/dL (1.8-2.4) Total Bilirubin 0.5 mg/dL (0.2-1.0) Aspartate Amino Transf (AST/SGOT) 26 U/L (15-37) Alanine Aminotransferase (ALT/SGPT) 41 U/L (14-59) Alkaline Phosphatase 222 U/L (46-116) Total Protein 5.5 g/dL (6.4-8.2) Albumin 1.9 g/dL (3.4-5.0) Albumin/Globulin Ratio 0.5 (1.0-1.7) Glucose (Fingerstick) 161 mg/dL (70-99) 387 mg/dL (70-99) 266 mg/dL (70-99) Test 06/09/20 06:03 06/09/20 08:46 Glucose (Fingerstick) 339 mg/dL (70-99) 335 mg/dL (70-99) Medications Active Scripts Medications Dose Route/Sig Max Daily Dose Days Date Category Actos (Pioglitazone Hcl) 45 Mg Tablet 1 Tab PO DAILY 30 05/18/20 Reported Diclofenac Sodium 75 Mg Tablet.dr 1 Tab PO BID 05/18/20 Reported Klor-Con 10 (Potassium Chloride) 10 Meq Tablet.er 1 Tab PO DAILY 30 05/18/20 Reported Metformin Hcl 1,000 Mg Tablet 1,000 Mg PO BIDWMEALS 05/18/20 Reported Omeprazole 20 Mg Capsule.dr 1 Cap PO DAILY 05/18/20 Reported Lisinopril-Hctz 20-25 Mg Tab (Lisinopril/Hydrochlorothiazide) 1 Each Tablet 1 Tab PO DAILY 05/18/20 Reported Aspirin Ec (Aspirin) 81 Mg Tablet.dr 1 Tab PO DAILY 05/18/20 Reported Hydralazine Hcl 100 Mg Tablet 1 Tab PO BID 05/18/20 Reported Metoprolol Tartrate 50 Mg Tablet 1 Tab PO BID 05/18/20 Reported Rosuvastatin Calcium 10 Mg Tablet 10 Mg PO DAILY 05/18/20 Reported Comments CXR : reviewed Moderate bilateral infiltrates could be secondary to atypical pneumonia or CHF. This appears similar to the prior study although there is improved aeration of the left lung base. Impression . IMPRESSION: 1. Acute hypoxic respiratory failure secondary to COVID-19 2. Abnormal chest x-ray/ARDS 3. Fever, resolved 4. Hypoglycemic encephalopathy, resolved. 5. Severe protein-calorie malnutrition. 6. Mild azotemia. 7. SARS-CoV-2 negative x2, May 18, May 19 8. Negative blood cultures 9. Possible Boop 10. Negative CT angiogram for PE 11. Acute lung injury 11. SARS-CoV-2 positive on May 31/COVID-19 cxr 06/08 IMPRESSION: Moderate prominent bilateral interstitial lung markings likely congestive changes or interstitial infiltrates. Follow-up to resolution. Impression: CT Chest 1. No evidence of pulmonary embolism. 2. Mild left effusion and moderate bilateral infiltrates right worse than left. This could be ARDS or pulmonary edema or atypical pneumonia. Plan . PRN IV Lasix Up to chair Advance diet Will continue current support PRN BiPAP D-dimer noted, continue Lovenox twice daily Continue antiviral, SARS COVID 2, reported positive from 05/31, s/p Remdesivir cont steroid ABX per ID DM per IM HTN per IM PT/OT D/W RN and RT KING WHITTINGTON MD Jun 09, 2020 09:24
[2020-06-09 13:44] LABS: BASO % 0 % (0-3); EOS % 0 % (0-3); HEMATOCRIT 28.7 % (36.0-47.0); HEMOGLOBIN 9.2 g/dL (12.0-15.5); LYMPH # 0.3 x10^3/uL (1.0-4.8); LYMPH % 2 % (24-48); MEAN CORPUSCULAR HEMOGLOBIN 27 pg (25-35); MEAN CORPUSCULAR HGB CONC 32 g/dL (31-37); MEAN CORPUSCULAR VOLUME 85 fL (79-100); MONO # 0.3 x10^3/uL (0.0-1.1); MONO % 2 % (0-9); NEUT % 96 % (31-73); PLATELET COUNT 227 x10^3/uL (140-400); RED BLOOD COUNT 3.38 x10^6/uL (3.50-5.40); RED CELL DISTRIBUTION WIDTH 18.7 % (11.5-14.5); WHITE BLOOD COUNT 16.7 x10^3/uL (4.0-11.0)
[2020-06-09 13:52] LABS: CALCIUM 7.5 mg/dL (8.5-10.1); CREATININE 0.9 mg/dL (0.6-1.0); GFR 62.3; POTASSIUM 3.8 mmol/L (3.5-5.1)
--- NOTE | 2020-06-09 14:55 | NUR ---
SS following up with discharge planning. SS reviewed pt chart and discussed with pt RN. Pt requiring vapotherm and BIPAP. Pt COVID19 positive. Pt accepted at [facility], ; fax [phone], pending insurance approval. [facility] denied first request. Appeal in process. SS currently awaiting results of appeal and will proceed accordingly with discharge planning. Addendum: 06/09/20 at 1458 by GUNNER BOND SS SS phoned and faxed clinical updates to [facility].
[2020-06-09] MEDS: STERILE WATER for RESP 1,000 ML BAG. INH PRN (16:15)
--- NOTE | 2020-06-09 17:10 | PDOC ---
PROGRESS NOTES Chief Complaint Chief Complaint Acute hypoxic respiratory failure secondary to multifocal infiltrate/pleural effusions Sepsis Hyperthyroidism likely Graves Dz Hypoglycemic encephalopathy, IMPROVING Severe protein-calorie malnutrition. DM2, HTN urinary retention, pain COVID + / - COVID-19 negative on 05/18/2020 and 05/19/2020. Remdesivir started 06/01 Pneumonia. sputum cx: Resp gerri. Off vanc/Zosyn/doxy. Off Augmentin CHF Severe protein-calorie malnutrition Gram-positive cocci bacteremia, 05/18/2020, 1 out of 2 bottles, ID MICROCOCCUS SPECIES, likely a contaminant. Bradycardia--holding BB for now plan: improved after lasix yesterday. comfortable on vapotherm. prn bipap. wean steroids as now hyperglycemic. off abx now. d dimer elevated, but CTA negative for PE. on BID lovenox. discuss with pulm. advance diet as tolerated History of Present Illness History of Present Illness better today. on vapotherm. has no complaints or concerns. Vitals Vitals Vital Signs Date Time Temp Pulse Resp B/P (MAP) Pulse Ox O2 Delivery O2 Flow Rate FiO2 06/09/20 16:16 91 Vapotherm 40.0 06/09/20 16:00 98.1 67 30 137/57 (83) 98.1 Physical Exam Physical Exam GENERAL: Propped up in bed, alert, calm - appears comfortable HEENT: On BiPAP NECK: Supple. LUNGS: CTA HEART: S1, S2. regular ABDOMEN: Obese, soft, nontender : Galan in place EXTREMITIES: trace edema lower extremities bilaterally. No cyanosis DERMATOLOGIC: Warm, dry. No generalized rash. NEUROLOGIC: Alert, responds appropriately General: Alert, Cooperative, No acute distress Heart: Regular rate, Normal S1, Normal S2, No murmurs Lungs: Clear Abdomen: Normal bowel sounds, Soft, No tenderness, No hepatosplenomegaly Labs LABS Laboratory Tests Test 06/08/20 17:49 06/08/20 21:26 06/09/20 06:03 06/09/20 08:46 Glucose (Fingerstick) 387 mg/dL (70-99) 266 mg/dL (70-99) 339 mg/dL (70-99) 335 mg/dL (70-99) Test 06/09/20 12:54 06/09/20 13:20 Glucose (Fingerstick) 409 mg/dL (70-99) White Blood Count 16.7 x10^3/uL (4.0-11.0) Red Blood Count 3.38 x10^6/uL (3.50-5.40) Hemoglobin 9.2 g/dL (12.0-15.5) Hematocrit 28.7 % (36.0-47.0) Mean Corpuscular Volume 85 fL (79-100) Mean Corpuscular Hemoglobin 27 pg (25-35) Mean Corpuscular Hemoglobin Concent 32 g/dL (31-37) Red Cell Distribution Width 18.7 % (11.5-14.5) Platelet Count 227 x10^3/uL (140-400) Neutrophils (%) (Auto) 96 % (31-73) Lymphocytes (%) (Auto) 2 % (24-48) Monocytes (%) (Auto) 2 % (0-9) Eosinophils (%) (Auto) 0 % (0-3) Basophils (%) (Auto) 0 % (0-3) Neutrophils # (Auto) 16.0 x10^3/uL (1.8-7.7) Lymphocytes # (Auto) 0.3 x10^3/uL (1.0-4.8) Monocytes # (Auto) 0.3 x10^3/uL (0.0-1.1) Eosinophils # (Auto) 0.0 x10^3/uL (0.0-0.7) Basophils # (Auto) 0.0 x10^3/uL (0.0-0.2) Sodium Level 140 mmol/L (136-145) Potassium Level 3.8 mmol/L (3.5-5.1) Chloride Level 104 mmol/L (98-107) Carbon Dioxide Level 31 mmol/L (21-32) Anion Gap 5 (6-14) Blood Urea Nitrogen 36 mg/dL (7-20) Creatinine 0.9 mg/dL (0.6-1.0) Estimated GFR (Cockcroft-Gault) 62.3 Glucose Level 434 mg/dL (70-99) Calcium Level 7.5 mg/dL (8.5-10.1) Assessment and Plan Assessmemt and Plan Problems Medical Problems: (1) Altered mental status Status: Acute (2) Hypoglycemia Status: Acute (3) Hypothermia Status: Acute Comment Review of Relevant I have reviewed the following items kavya (where applicable) has been applied. Labs Laboratory Tests Test 06/07/20 17:24 06/07/20 20:54 06/08/20 08:47 06/08/20 11:35 Glucose (Fingerstick) 295 mg/dL (70-99) 355 mg/dL (70-99) 176 mg/dL (70-99) White Blood Count 23.2 x10^3/uL (4.0-11.0) Red Blood Count 3.51 x10^6/uL (3.50-5.40) Hemoglobin 9.5 g/dL (12.0-15.5) Hematocrit 29.4 % (36.0-47.0) Mean Corpuscular Volume 84 fL (79-100) Mean Corpuscular Hemoglobin 27 pg (25-35) Mean Corpuscular Hemoglobin Concent 32 g/dL (31-37) Red Cell Distribution Width 18.5 % (11.5-14.5) Platelet Count 253 x10^3/uL (140-400) Neutrophils (%) (Auto) 97 % (31-73) Lymphocytes (%) (Auto) 2 % (24-48) Monocytes (%) (Auto) 2 % (0-9) Eosinophils (%) (Auto) 0 % (0-3) Basophils (%) (Auto) 0 % (0-3) Neutrophils # (Auto) 22.4 x10^3/uL (1.8-7.7) Lymphocytes # (Auto) 0.3 x10^3/uL (1.0-4.8) Monocytes # (Auto) 0.4 x10^3/uL (0.0-1.1) Eosinophils # (Auto) 0.0 x10^3/uL (0.0-0.7) Basophils # (Auto) 0.0 x10^3/uL (0.0-0.2) Segmented Neutrophils % 92 % (35-66) Band Neutrophils % 5 % (0-9) Lymphocytes % 1 % (24-48) Monocytes % 2 % (0-10) Platelet Estimate Adequate (ADEQUATE) Polychromasia Present Basophilic Stippling Present Anisocytosis Slight Sodium Level 146 mmol/L (136-145) Potassium Level 3.8 mmol/L (3.5-5.1) Chloride Level 108 mmol/L (98-107) Carbon Dioxide Level 31 mmol/L (21-32) Anion Gap 7 (6-14) Blood Urea Nitrogen 33 mg/dL (7-20) Creatinine 0.8 mg/dL (0.6-1.0) Estimated GFR (Cockcroft-Gault) 71.3 BUN/Creatinine Ratio 41 (6-20) Glucose Level 158 mg/dL (70-99) Calcium Level 7.4 mg/dL (8.5-10.1) Magnesium Level 1.9 mg/dL (1.8-2.4) Total Bilirubin 0.5 mg/dL (0.2-1.0) Aspartate Amino Transf (AST/SGOT) 26 U/L (15-37) Alanine Aminotransferase (ALT/SGPT) 41 U/L (14-59) Alkaline Phosphatase 222 U/L (46-116) Total Protein 5.5 g/dL (6.4-8.2) Albumin 1.9 g/dL (3.4-5.0) Albumin/Globulin Ratio 0.5 (1.0-1.7) Test 06/08/20 12:35 06/08/20 17:49 06/08/20 21:26 06/09/20 06:03 Glucose (Fingerstick) 161 mg/dL (70-99) 387 mg/dL (70-99) 266 mg/dL (70-99) 339 mg/dL (70-99) Test 06/09/20 08:46 06/09/20 12:54 06/09/20 13:20 Glucose (Fingerstick) 335 mg/dL (70-99) 409 mg/dL (70-99) White Blood Count 16.7 x10^3/uL (4.0-11.0) Red Blood Count 3.38 x10^6/uL (3.50-5.40) Hemoglobin 9.2 g/dL (12.0-15.5) Hematocrit 28.7 % (36.0-47.0) Mean Corpuscular Volume 85 fL (79-100) Mean Corpuscular Hemoglobin 27 pg (25-35) Mean Corpuscular Hemoglobin Concent 32 g/dL (31-37) Red Cell Distribution Width 18.7 % (11.5-14.5) Platelet Count 227 x10^3/uL (140-400) Neutrophils (%) (Auto) 96 % (31-73) Lymphocytes (%) (Auto) 2 % (24-48) Monocytes (%) (Auto) 2 % (0-9) Eosinophils (%) (Auto) 0 % (0-3) Basophils (%) (Auto) 0 % (0-3) Neutrophils # (Auto) 16.0 x10^3/uL (1.8-7.7) Lymphocytes # (Auto) 0.3 x10^3/uL (1.0-4.8) Monocytes # (Auto) 0.3 x10^3/uL (0.0-1.1) Eosinophils # (Auto) 0.0 x10^3/uL (0.0-0.7) Basophils # (Auto) 0.0 x10^3/uL (0.0-0.2) Sodium Level 140 mmol/L (136-145) Potassium Level 3.8 mmol/L (3.5-5.1) Chloride Level 104 mmol/L (98-107) Carbon Dioxide Level 31 mmol/L (21-32) Anion Gap 5 (6-14) Blood Urea Nitrogen 36 mg/dL (7-20) Creatinine 0.9 mg/dL (0.6-1.0) Estimated GFR (Cockcroft-Gault) 62.3 Glucose Level 434 mg/dL (70-99) Calcium Level 7.5 mg/dL (8.5-10.1) Laboratory Tests Test 06/08/20 17:49 06/08/20 21:26 06/09/20 06:03 06/09/20 08:46 Glucose (Fingerstick) 387 mg/dL (70-99) 266 mg/dL (70-99) 339 mg/dL (70-99) 335 mg/dL (70-99) Test 06/09/20 12:54 06/09/20 13:20 Glucose (Fingerstick) 409 mg/dL (70-99) White Blood Count 16.7 x10^3/uL (4.0-11.0) Red Blood Count 3.38 x10^6/uL (3.50-5.40) Hemoglobin 9.2 g/dL (12.0-15.5) Hematocrit 28.7 % (36.0-47.0) Mean Corpuscular Volume 85 fL (79-100) Mean Corpuscular Hemoglobin 27 pg (25-35) Mean Corpuscular Hemoglobin Concent 32 g/dL (31-37) Red Cell Distribution Width 18.7 % (11.5-14.5) Platelet Count 227 x10^3/uL (140-400) Neutrophils (%) (Auto) 96 % (31-73) Lymphocytes (%) (Auto) 2 % (24-48) Monocytes (%) (Auto) 2 % (0-9) Eosinophils (%) (Auto) 0 % (0-3) Basophils (%) (Auto) 0 % (0-3) Neutrophils # (Auto) 16.0 x10^3/uL (1.8-7.7) Lymphocytes # (Auto) 0.3 x10^3/uL (1.0-4.8) Monocytes # (Auto) 0.3 x10^3/uL (0.0-1.1) Eosinophils # (Auto) 0.0 x10^3/uL (0.0-0.7) Basophils # (Auto) 0.0 x10^3/uL (0.0-0.2) Sodium Level 140 mmol/L (136-145) Potassium Level 3.8 mmol/L (3.5-5.1) Chloride Level 104 mmol/L (98-107) Carbon Dioxide Level 31 mmol/L (21-32) Anion Gap 5 (6-14) Blood Urea Nitrogen 36 mg/dL (7-20) Creatinine 0.9 mg/dL (0.6-1.0) Estimated GFR (Cockcroft-Gault) 62.3 Glucose Level 434 mg/dL (70-99) Calcium Level 7.5 mg/dL (8.5-10.1) Microbiology 05/26/20 Gram Stain Evaluation - Final, Complete 05/26/20 Respiratory Culture - Final, Complete 05/24/20 Blood Culture - Final, Complete NO GROWTH AFTER 5 DAYS 05/18/20 Urine Culture - Final, Complete Medications Current Medications Sodium Chloride 1,000 ml @ 1,000 mls/hr 1X ONCE IV Last administered on 05/18/20at 09:29; Start 05/18/20 at 09:15; Stop 05/18/20 at 10:14; Status DC Ceftriaxone Sodium (Rocephin) 1 gm 1X ONCE IVP Last administered on 05/18/20at 09:28; Start 05/18/20 at 09:15; Stop 05/18/20 at 09:16; Status DC Ondansetron HCl (Zofran) 4 mg PRN Q8HRS PRN IV NAUSEA/VOMITING; Start 05/18/20 at 10:15; Stop 05/18/20 at 16:24; Status DC Acetaminophen (Tylenol) 650 mg PRN Q4HRS PRN PO FEVER > 100.3'F; Start 05/18/20 at 10:15; Stop 05/18/20 at 16:24; Status DC Ceftriaxone Sodium (Rocephin) 1 gm Q24H IVP Last administered on 05/24/20at 09:09; Start 05/19/20 at 09:00; Stop 05/24/20 at 18:10; Status DC Sodium Chloride (Normal Saline Flush) 3 ml QSHIFT PRN IV AFTER MEDS AND BLOOD DRAWS; Start 05/18/20 at 16:30 Sodium Chloride 1,000 ml @ 85 mls/hr [id number] IV Last administered on 05/24/20at 18:31; Start 05/18/20 at 16:20; Stop 05/25/20 at 09:44; Status DC Ondansetron HCl (Zofran) 4 mg PRN Q4HRS PRN IV NAUSEA/VOMITING; Start 05/18/20 at 16:30 Acetaminophen (Tylenol) 650 mg PRN Q4HRS PRN PO TEMP OVER 100.4F OR MILD PAIN Last administered on 05/30/20at 20:09; Start 05/18/20 at 16:30 Acetaminophen (Tylenol Supp) 650 mg PRN Q4HRS PRN [place] TEMP OVER 100.4F OR MILD PAIN; Start 05/18/20 at 16:30 Sodium Monofluorophosphate (Fleet Adult) 133 ml PRN DAILY PRN [place] CONSTIPATION; Start 05/18/20 at 16:30 Docusate Sodium (Colace) 100 mg PRN BID PRN PO HARD STOOLS Last administered on 06/06/20at 08:40; Start 05/18/20 at 16:30 Albuterol Sulfate (Ventolin Neb Soln) 2.5 mg PRN Q4HRS PRN NEB SHORTNESS OF BREATH Last administered on 05/21/20 18:14; Start 05/18/20 at 16:30; Stop 05/31/20 at 16:19; Status DC Guaifenesin (Robitussin) 200 mg PRN Q4HRS PRN PO COUGH Last administered on 05/23/20at 20:00; Start 05/18/20 at 16:30 Enoxaparin Sodium (Lovenox 40mg Syringe) 40 mg Q24H SQ Last administered on 05/31/20at 17:03; Start 05/18/20 at 17:00; Stop 06/01/20 at 10:27; Status DC Aspirin (Ecotrin) 81 mg DAILY PO Last administered on 06/09/20 08:39; Start 05/19/20 at 09:00 Metoprolol Tartrate (Lopressor) 50 mg BID PO Last administered on 05/21/20at 09:16; Start 05/19/20 at 09:00; Stop 05/21/20 at 15:45; Status DC Diclofenac Sodium (Voltaren) 75 mg BID PO Last administered on 06/03/20at 20:29; Start 05/19/20 at 10:00; Stop 06/04/20 at 08:03; Status DC Hydralazine HCl (Apresoline) 100 mg BID PO Last administered on 05/21/20at 09:15; Start 05/19/20 at 09:00; Stop 05/21/20 at 15:45; Status DC Lisinopril (Prinivil) 20 mg DAILY PO Last administered on 05/21/20at 09:16; Start 05/19/20 at 10:00; Stop 05/21/20 at 15:45; Status DC Pantoprazole Sodium (Protonix) 40 mg DAILYAC PO Last administered on 06/09/20 08:39; Start 05/19/20 at 10:00 Atorvastatin Calcium (Lipitor) 40 mg QHS PO Last administered on 06/08/20at 21:20; Start 05/19/20 at 21:00 Hydrochlorothiazide (Hydrodiuril) 25 mg DAILY PO Last administered on 05/23/20at 08:59; Start 05/19/20 at 10:00; Stop 05/23/20 at 10:22; Status DC Lactobacillus Rhamnosus (Culturelle) 1 cap BID PO Last administered on 06/09/20at 08:40; Start 05/19/20 at 21:00 Insulin Human Lispro (HumaLOG) 0-7 UNITS TIDWMEALS SQ Last administered on 06/09/20at 13:04; Start 05/19/20 at 17:00 Dextrose (Dextrose 50%-Water Syringe) 12.5 gm PRN Q15MIN PRN IV SEE COMMENTS Last administered on 06/04/20at 06:52; Start 05/19/20 at 14:15 Methimazole (Tapazole) 5 mg BID PO Last administered on 06/09/20at 08:40; Start 05/20/20 at 10:00 Insulin Glargine (Lantus Syringe) 5 unit DAILY SQ Last administered on 05/22/20at 09:15; Start 05/21/20 at 09:00; Stop 05/22/20 at 21:05; Status DC Doxycycline Hyclate (Vibra-Tab) 100 mg BID PO Last administered on 05/28/20at 08:53; Start 05/21/20 at 15:00; Stop 05/28/20 at 15:02; Status DC Furosemide (Lasix) 20 mg 1X ONCE IVP Last administered on 05/21/20 17:05; Start 05/21/20 at 17:00; Stop 05/21/20 at 17:01; Status DC Sterile Water (WATER for RESP) 1,000 ml CONT PRN INH VIA VAPOTHERM DEVICE Last administered on 05/23/20at 16:26; Start 05/21/20 at 17:15; Stop 05/30/20 at 12:58; Status DC Albuterol Sulfate (Ventolin Neb Soln) 2.5 mg Q4HRS NEB Last administered on 05/30/20at 15:45; Start 05/21/20 at 20:00; Stop 05/31/20 at 16:19; Status DC Vancomycin HCl (Vanco Per Pharmacy) 1 each PRN DAILY PRN MC SEE COMMENTS Last administered on 05/25/20at 23:52; Start 05/22/20 at 09:00; Stop 05/27/20 at 16:29; Status DC Vancomycin HCl 2 gm/Sodium Chloride 500 ml @ 250 mls/hr 1X ONCE IV Last administered on 6/27/20at 09:05; Start 05/22/20 at 09:00; Stop 05/22/20 at 10:59; Status DC Vancomycin HCl 1.25 gm/Sodium Chloride 250 ml @ 167 mls/hr Q24H IV Last administered on 05/23/20at 09:00; Start 05/23/20 at 09:00; Stop 05/24/20 at 10:05; Status DC Vancomycin HCl (Vancomycin Trough Level) 1 each 1X ONCE MC Last administered on 05/24/20at 08:30; Start 05/24/20 at 08:30; Stop 05/24/20 at 08:31; Status DC Methylprednisolone Sodium Succinate (SOLU-Medrol 125MG VIAL) 80 mg Q8HRS IV Last administered on 05/27/20at 06:04; Start 05/22/20 at 14:00; Stop 05/27/20 at 12:02; Status DC Insulin Glargine (Lantus Syringe) 10 unit BID SQ Last administered on 05/23/20at 09:11; Start 05/22/20 at 21:00; Stop 05/23/20 at 20:17; Status DC Metoprolol Tartrate (Lopressor) 50 mg BID PO Last administered on 06/08/20 08:23; Start 05/23/20 at 10:30; Stop 06/08/20 at 10:43; Status DC Hydrochlorothiazide (Microzide) 12.5 mg DAILY PO Last administered on 06/09/20 08:39; Start 05/24/20 at 09:00 Potassium Chloride (Klor-Con) 40 meq Q2H PO Last administered on 05/23/20at 14:58; Start 05/23/20 at 10:30; Stop 05/23/20 at 14:31; Status DC Lisinopril (Prinivil) 40 mg DAILY PO Last administered on 06/09/20 08:41; Start 05/23/20 at 10:30 Hydralazine HCl (Apresoline) 100 mg BID PO Last administered on 06/09/20at 08:40; Start 05/23/20 at 10:30 Insulin Glargine (Lantus Syringe) 10 unit BID SQ Last administered on 05/24/20at 09:14; Start 05/23/20 at 21:00; Stop 05/24/20 at 11:28; Status DC Vancomycin HCl 1.25 gm/Sodium Chloride 250 ml @ 167 mls/hr Q12H IV Last administered on 05/27/20at 08:21; Start 05/24/20 at 10:30; Stop 05/27/20 at 16:26; Status DC Vancomycin HCl (Vancomycin Trough Level) 1 each 1X ONCE MC Last administered on 05/25/20at 22:00; Start 05/25/20 at 22:00; Stop 05/25/20 at 22:01; Status DC Insulin Glargine (Lantus Syringe) 12 unit BID SQ ; Start 05/24/20 at 21:00; Stop 05/24/20 at 17:27; Status DC Insulin Glargine (Lantus Syringe) 15 unit BID SQ Last administered on 05/25/20at 08:19; Start 05/24/20 at 21:00; Stop 05/25/20 at 09:47; Status DC Insulin Human Lispro (HumaLOG) 7 units 1X ONCE SQ Last administered on 05/24/20at 18:01; Start 05/24/20 at 17:30; Stop 05/24/20 at 17:31; Status DC Piperacillin Sod/ Tazobactam Sod 3.375 gm/Sodium Chloride 50 ml @ 100 mls/hr Q6HRS IV Last administered on 05/28/20at 12:09; Start 05/24/20 at 18:30; Stop 05/28/20 at 15:01; Status DC Insulin Human Lispro (HumaLOG) 11 units 1X SQ ; Start 05/24/20 at 21:30; Status Cancel Insulin Human Lispro (HumaLOG) 11 units 1X ONCE SQ Last administered on 05/24/20at 22:25; Start 05/24/20 at 22:00; Stop 05/24/20 at 22:01; Status DC Furosemide (Lasix) 20 mg 1X ONCE IVP Last administered on 05/25/20at 11:12; Start 05/25/20 at 10:00; Stop 05/25/20 at 10:01; Status DC Insulin Glargine (Lantus Syringe) 18 unit BID SQ Last administered on 05/27/20at 08:33; Start 05/25/20 at 21:00; Stop 7/2/20 at 12:00; Status DC Midazolam HCl (Versed) 2 mg 1X ONCE IV ; Start 05/25/20 at 10:30; Stop 05/25/20 at 10:31; Status Cancel Fentanyl Citrate (Fentanyl 2ml Vial) 50 mcg 1X ONCE IM ; Start 05/25/20 at 10:30; Stop 05/25/20 at 10:31; Status Cancel Hydralazine HCl (Apresoline Inj) 10 mg PRN Q4HRS PRN IVP ELEVATED BP, SEE COMMENTS Last administered on 05/29/20at 11:06; Start 05/25/20 at 16:15 Potassium Chloride (Klor-Con) 40 meq 1X ONCE PO Last administered on 05/26/20at 18:43; Start 05/26/20 at 18:30; Stop 05/26/20 at 18:31; Status DC Insulin Glargine (Lantus Syringe) 22 unit BID SQ Last administered on 05/29/20at 08:24; Start 05/27/20 at 21:00; Stop 05/29/20 at 12:14; Status DC Methylprednisolone Sodium Succinate (SOLU-Medrol 125MG VIAL) 40 mg Q12HR IV Last administered on 05/28/20at 08:52; Start 05/27/20 at 19:00; Stop 05/28/20 at 13:37; Status DC Nystatin (Nystatin Oral Susp) 5 ml [id number] Last administered on 06/09/20at 13:05; Start 05/27/20 at 17:00 Insulin Human Lispro (HumaLOG) 20 units 1X ONCE SQ Last administered on 05/27/20at 17:32; Start 05/27/20 at 17:30; Stop 05/27/20 at 17:31; Status DC Methylprednisolone Sodium Succinate (SOLU-Medrol 40MG VIAL) 40 mg Q12HR IV Last administered on 05/30/20at 08:34; Start 05/28/20 at 21:00; Stop 05/30/20 at 14:10; Status DC Amoxicillin/ Clavulanate Potassium (Augmentin 875/ 125mg) 1 tab BID PO Last administered on 05/31/20at 19:53; Start 05/28/20 at 21:00; Stop 05/31/20 at 21:01; Status DC Amlodipine Besylate (Norvasc) 2.5 mg DAILY PO Last administered on 06/09/20at 08:40; Start 05/29/20 at 11:45 Furosemide (Lasix) 20 mg 1X ONCE PO Last administered on 05/29/20at 12:40; Start 05/29/20 at 12:30; Stop 05/29/20 at 12:31; Status DC Potassium Chloride (Klor-Con) 20 meq 1X ONCE PO Last administered on 05/29/20at 12:40; Start 05/29/20 at 12:30; Stop 05/29/20 at 12:31; Status DC Insulin Glargine (Lantus Syringe) 25 unit BID SQ Last administered on 06/04/20at 07:58; Start 05/29/20 at 21:00; Stop 06/04/20 at 09:20; Status DC Furosemide (Lasix) 40 mg 1X ONCE IVP Last administered on 05/30/20at 11:47; Start 05/30/20 at 11:15; Stop 05/30/20 at 11:16; Status DC Iohexol (Omnipaque 350 Mg/ml) 100 ml 1X ONCE IV Last administered on 05/30/20at 12:00; Start 05/30/20 at 12:00; Stop 05/30/20 at 12:01; Status DC Info (CONTRAST GIVEN -- Rx MONITORING) 1 each PRN DAILY PRN MC SEE COMMENTS; Start 05/30/20 at 12:15; Stop 06/01/20 at 12:14; Status DC Sterile Water (WATER for RESP) 1,000 ml CONT PRN INH VIA VAPOTHERM DEVICE Last administered on 06/09/20at 16:15; Start 05/30/20 at 13:00 Methylprednisolone Sodium Succinate (SOLU-Medrol 125MG VIAL) 125 mg Q12HR IV Last administered on 06/09/20at 08:41; Start 05/30/20 at 14:15; Stop 06/09/20 at 13:11; Status DC Enoxaparin Sodium (Lovenox 40mg Syringe) 40 mg BID SQ Last administered on 06/09/20at 08:39; Start 06/01/20 at 21:00 Non-Formulary Medication 1 ea/ Sodium Chloride 210 ml @ 210 mls/hr 1X ONCE IV Last administered on 06/01/20at 17:11; Start 06/01/20 at 16:30; Stop 06/01/20 at 17:29; Status DC Non-Formulary Medication 1 ea/ Sodium Chloride 230 ml @ 460 mls/hr DAILY IV Last administered on 06/05/20at 17:38; Start 06/02/20 at 09:00; Stop 06/05/20 at 09:29; Status DC Potassium Chloride (Klor-Con) 40 meq 1X ONCE PO Last administered on 06/03/20at 09:51; Start 06/03/20 at 08:00; Stop 06/03/20 at 08:01; Status DC Diclofenac Sodium (Voltaren) 75 mg BID PO ; Start 06/04/20 at 08:03; Stop 06/04/20 at 08:04; Status DC Diclofenac Sodium (Voltaren) 75 mg BID PO Last administered on 06/09/20at 08:42; Start 06/04/20 at 09:00 Insulin Glargine (Lantus Syringe) 30 unit QHS SQ Last administered on 06/04/20at 21:14; Start 06/04/20 at 21:00; Stop 06/05/20 at 10:25; Status DC Insulin Glargine (Lantus Syringe) 15 unit QHS SQ Last administered on 06/08/20at 21:39; Start 06/05/20 at 21:00 Furosemide (Lasix) 40 mg 1X ONCE IVP Last administered on 06/08/20at 11:14; Start 06/08/20 at 11:00; Stop 06/08/20 at 11:02; Status DC Methylprednisolone Sodium Succinate (SOLU-Medrol 125MG VIAL) 60 mg BID IV ; Start 06/09/20 at 21:00 Active Scripts Active Reported Actos (Pioglitazone Hcl) 45 Mg Tablet 1 Tab PO DAILY 30 Days Diclofenac Sodium 75 Mg Tablet.dr 1 Tab PO BID Klor-Con 10 (Potassium Chloride) 10 Meq Tablet.er 1 Tab PO DAILY 30 Days Metformin Hcl 1,000 Mg Tablet 1,000 Mg PO BIDWMEALS Omeprazole 20 Mg Capsule.dr 1 Cap PO DAILY Lisinopril-Hctz 20-25 Mg Tab (Lisinopril/Hydrochlorothiazide) 1 Each Tablet 1 Tab PO DAILY Aspirin Ec (Aspirin) 81 Mg Tablet.dr 1 Tab PO DAILY Hydralazine Hcl 100 Mg Tablet 1 Tab PO BID Metoprolol Tartrate 50 Mg Tablet 1 Tab PO BID Rosuvastatin Calcium 10 Mg Tablet 10 Mg PO DAILY Vitals/I & O Vital Sign - Last 24 Hours 06/08/20 06/08/20 06/08/20 06/08/20 18:00 19:20 19:50 20:08 Temp 98.6 98.6 Pulse 59 62 Resp 23 34 B/P (MAP) 133/61 (85) 142/64 (90) Pulse Ox 93 95 95 O2 Delivery Vapotherm vapotherm Vapotherm Bi-pap O2 Flow Rate 40.0 40.0 40.0 40.0 06/08/20 06/08/20 06/08/20 06/08/20 20:13 21:00 21:20 22:00 Pulse 62 62 62 56 Resp 25 28 28 B/P (MAP) 130/56 (80) 122/53 (76) 130/56 139/58 (85) Pulse Ox 95 92 94 O2 Delivery vapotherm vapotherm BiPAP/CPAP 06/08/20 06/08/20 06/08/20 06/09/20 23:01 23:20 23:45 00:11 Temp 98.2 98.2 Pulse 58 Resp 29 B/P (MAP) 145/59 (87) Pulse Ox 94 97 O2 Delivery [id number] BiPAP/CPAP Bi-pap O2 Flow Rate 40.0 40.0 06/09/20 06/09/20 06/09/20 06/09/20 01:07 02:14 03:13 03:55 Pulse 53 57 54 Resp 26 25 25 B/P (MAP) 133/64 (87) 132/59 (83) 140/54 (82) Pulse Ox 96 95 97 97 O2 Delivery BiPAP/CPAP BiPAP/CPAP BiPAP/CPAP [id number] 06/09/20 06/09/20 06/09/20 06/09/20 04:11 04:11 04:28 05:20 Pulse 50 49 Resp 25 26 B/P (MAP) 121/54 (76) 140/59 (86) Pulse Ox 95 96 O2 Delivery BiPAP/CPAP Bi-pap BiPAP/CPAP O2 Flow Rate 40.0 06/09/20 06/09/20 06/09/20 06/09/20 06:00 07:00 07:13 08:00 Temp 97.8 97.8 Pulse 55 52 Resp 25 16 B/P (MAP) 127/59 (81) 144/60 (88) Pulse Ox 97 95 96 O2 Delivery BiPAP/CPAP BiPAP/CPAP [id number] Bi-pap 06/09/20 06/09/20 06/09/20 06/09/20 08:00 08:40 08:40 08:41 Temp 97.7 97.7 Pulse 68 67 72 72 Resp 24 B/P (MAP) 158/71 (100) 158/71 158/60 158/71 Pulse Ox 96 O2 Delivery BiPAP/CPAP 06/09/20 06/09/20 06/09/20 06/09/20 09:00 10:00 11:00 11:27 Pulse 72 75 65 Resp 30 26 27 B/P (MAP) 136/67 (90) 135/55 (81) 131/60 (83) Pulse Ox 86 93 93 91 O2 Delivery Vapotherm Vapotherm Vapotherm Vapotherm O2 Flow Rate 40.0 40.0 40.0 40.0 06/09/20 06/09/20 06/09/20 06/09/20 12:00 12:00 13:00 14:00 Temp 98.5 98.5 Pulse 76 68 66 Resp 30 27 27 B/P (MAP) 151/63 (92) 118/65 (82) 127/66 (86) Pulse Ox 94 89 94 O2 Delivery Vapotherm Vapotherm Vapotherm O2 Flow Rate 40.0 40.0 40.0 40.0 06/09/20 06/09/20 06/09/20 06/09/20 15:00 16:00 16:00 16:16 Temp 98.1 98.1 Pulse 73 67 Resp 30 B/P (MAP) 131/60 (83) 137/57 (83) Pulse Ox 89 91 91 O2 Delivery Vapotherm Vapotherm Vapotherm O2 Flow Rate 40.0 40.0 40.0 40.0 Intake and Output 06/08/20 06/08/20 06/09/20 15:00 23:00 07:00 Intake Total 240 ml 650 ml 0 ml Output Total 615 ml 980 ml 240 ml Balance -375 ml -330 ml -240 ml Justicifation of Admission Dx: Justifications for Admission: Justification of Admission Dx: Yes Altered Mental Status: Altered Mental Status SUYAPA MCCORMICK MD Jun 09, 2020 17:10
[2020-06-09] MEDS: DOCUSATE SODIUM 100 MG CAPSULE. PO PRN (17:30)
[2020-06-09] MEDS: ATORVASTATIN CALCIUM 40 MG TABLET. PO SCH (21:13)
[2020-06-09] MEDS: INSULIN GLARGINE SYRINGE. SQ SCH (21:29)
[2020-06-10] VITALS (22 sets, daily range): BP systolic 85–190; BP diastolic 33–77
[2020-06-10] MEDS: hydrALAZINE 20 MG/ML VIAL. IVP PRN (01:08)
[2020-06-10] MEDS ORDERED: hydrALAZINE 20 MG/ML VIAL. IVP ONE (03:00)
[2020-06-10] MEDS ORDERED: amLODIPine BESYLATE 10 MG TABLET PO ONE (03:00)
[2020-06-10 05:06] LABS: BASO % 0 % (0-3); EOS % 0 % (0-3); HEMOGLOBIN 9.1 g/dL (12.0-15.5); LYMPH # 0.4 x10^3/uL (1.0-4.8); LYMPH % 2 % (24-48); MEAN CORPUSCULAR HEMOGLOBIN 28 pg (25-35); MEAN CORPUSCULAR HGB CONC 33 g/dL (31-37); MEAN CORPUSCULAR VOLUME 85 fL (79-100); MONO # 0.5 x10^3/uL (0.0-1.1); MONO % 3 % (0-9); NEUT # 18.4 x10^3/uL (1.8-7.7); NEUT % 95 % (31-73); PLATELET COUNT 224 x10^3/uL (140-400); RED BLOOD COUNT 3.32 x10^6/uL (3.50-5.40); RED CELL DISTRIBUTION WIDTH 18.8 % (11.5-14.5); WHITE BLOOD COUNT 19.2 x10^3/uL (4.0-11.0)
[2020-06-10 05:38] LABS: CALCIUM 7.6 mg/dL (8.5-10.1); CREATININE 0.8 mg/dL (0.6-1.0); GFR 71.3; POTASSIUM 3.6 mmol/L (3.5-5.1)
--- NOTE | 2020-06-10 08:12 | PDOC ---
Infectious Disease Note Subjective Subjective pt is awake, says breathing ok ROS ROS No nausea vomiting diarrhea Vital Sign Vital Signs Vital Signs Date Time Temp Pulse Resp B/P (MAP) Pulse Ox O2 Delivery O2 Flow Rate FiO2 06/10/20 07:22 96 [id number] 06/10/20 07:20 72 24 110/58 (75) 06/10/20 04:09 40.0 06/10/20 00:00 98.6 98.6 Physical Exam PHYSICAL EXAM GENERAL: Propped up in bed, alert, calm - appears comfortable HEENT: On BiPAP NECK: Supple. LUNGS: CTA HEART: S1, S2. regular ABDOMEN: Obese, soft, nontender : Galan in place EXTREMITIES: trace edema lower extremities bilaterally. No cyanosis DERMATOLOGIC: Warm, dry. No generalized rash. NEUROLOGIC: Alert, responds appropriately Labs Lab Laboratory Tests Test 06/09/20 08:46 06/09/20 12:54 06/09/20 13:20 06/09/20 17:36 Glucose (Fingerstick) 335 mg/dL (70-99) 409 mg/dL (70-99) 435 mg/dL (70-99) White Blood Count 16.7 x10^3/uL (4.0-11.0) Red Blood Count 3.38 x10^6/uL (3.50-5.40) Hemoglobin 9.2 g/dL (12.0-15.5) Hematocrit 28.7 % (36.0-47.0) Mean Corpuscular Volume 85 fL (79-100) Mean Corpuscular Hemoglobin 27 pg (25-35) Mean Corpuscular Hemoglobin Concent 32 g/dL (31-37) Red Cell Distribution Width 18.7 % (11.5-14.5) Platelet Count 227 x10^3/uL (140-400) Neutrophils (%) (Auto) 96 % (31-73) Lymphocytes (%) (Auto) 2 % (24-48) Monocytes (%) (Auto) 2 % (0-9) Eosinophils (%) (Auto) 0 % (0-3) Basophils (%) (Auto) 0 % (0-3) Neutrophils # (Auto) 16.0 x10^3/uL (1.8-7.7) Lymphocytes # (Auto) 0.3 x10^3/uL (1.0-4.8) Monocytes # (Auto) 0.3 x10^3/uL (0.0-1.1) Eosinophils # (Auto) 0.0 x10^3/uL (0.0-0.7) Basophils # (Auto) 0.0 x10^3/uL (0.0-0.2) Sodium Level 140 mmol/L (136-145) Potassium Level 3.8 mmol/L (3.5-5.1) Chloride Level 104 mmol/L (98-107) Carbon Dioxide Level 31 mmol/L (21-32) Anion Gap 5 (6-14) Blood Urea Nitrogen 36 mg/dL (7-20) Creatinine 0.9 mg/dL (0.6-1.0) Estimated GFR (Cockcroft-Gault) 62.3 Glucose Level 434 mg/dL (70-99) Calcium Level 7.5 mg/dL (8.5-10.1) Test 06/09/20 21:17 06/10/20 04:35 Glucose (Fingerstick) 327 mg/dL (70-99) White Blood Count 19.2 x10^3/uL (4.0-11.0) Red Blood Count 3.32 x10^6/uL (3.50-5.40) Hemoglobin 9.1 g/dL (12.0-15.5) Hematocrit 28.0 % (36.0-47.0) Mean Corpuscular Volume 85 fL (79-100) Mean Corpuscular Hemoglobin 28 pg (25-35) Mean Corpuscular Hemoglobin Concent 33 g/dL (31-37) Red Cell Distribution Width 18.8 % (11.5-14.5) Platelet Count 224 x10^3/uL (140-400) Neutrophils (%) (Auto) 95 % (31-73) Lymphocytes (%) (Auto) 2 % (24-48) Monocytes (%) (Auto) 3 % (0-9) Eosinophils (%) (Auto) 0 % (0-3) Basophils (%) (Auto) 0 % (0-3) Neutrophils # (Auto) 18.4 x10^3/uL (1.8-7.7) Lymphocytes # (Auto) 0.4 x10^3/uL (1.0-4.8) Monocytes # (Auto) 0.5 x10^3/uL (0.0-1.1) Eosinophils # (Auto) 0.0 x10^3/uL (0.0-0.7) Basophils # (Auto) 0.0 x10^3/uL (0.0-0.2) Sodium Level 142 mmol/L (136-145) Potassium Level 3.6 mmol/L (3.5-5.1) Chloride Level 105 mmol/L (98-107) Carbon Dioxide Level 31 mmol/L (21-32) Anion Gap 6 (6-14) Blood Urea Nitrogen 30 mg/dL (7-20) Creatinine 0.8 mg/dL (0.6-1.0) Estimated GFR (Cockcroft-Gault) 71.3 Glucose Level 387 mg/dL (70-99) Calcium Level 7.6 mg/dL (8.5-10.1) Micro Microbiology 05/26/20 Gram Stain Evaluation - Final, Complete 05/26/20 Respiratory Culture - Final, Complete 05/24/20 Blood Culture - Final, Complete NO GROWTH AFTER 5 DAYS 05/18/20 Urine Culture - Final, Complete Objective Assessment COVID + 05/30 - COVID-19 negative on 05/18/2020 and 05/19/2020. Remdesivir given Acute hypoxic respiratory failure - on Bipap Pneumonia. sputum cx: Resp gerri. Off vanc/Zosyn/doxy. Off Augmentin Fever - now resolved Leukocytosis, on steroids. CHF Hypoglycemic encephalopathy, resolved. Diabetes. Hypertension. Severe protein-calorie malnutrition. Gram-positive cocci bacteremia, 05/18/2020, 1 out of 2 bottles, ID MICROCOCCUS SPECIES, likely a contaminant. Plan Plan of Care Steroids off abx Nystatin SWSW, 05/27 Maintain aspiration precautions Supportive care D/w nursing BYRON REDMOND MD Jun 10, 2020 08:12
[2020-06-10] MEDS: ENOXAPARIN 40 MG/0.4 ML SYRINGE. SQ SCH (08:15)
[2020-06-10] MEDS: methylPREDNISolone SOD SUCC PF 125 MG/2 ML VIAL. IV SCH ×2 (08:15→21:11)
[2020-06-10] MEDS: ASPIRIN ENTERIC COATED 81 MG TABLET.DR. PO SCH (08:16)
[2020-06-10] MEDS: LACTOBACILLUS RHAMNOSUS GG 1 CAPSULE. PO SCH ×2 (08:16→21:11)
[2020-06-10] MEDS: DICLOFENAC SODIUM 25 MG TABLET.DR PO SCH ×2 (08:16→21:15)
[2020-06-10] MEDS: NYSTATIN 100,000 UNITS/ML 5 ML ORAL.SUSP. SWSW SCH ×4 (08:16→21:15)
[2020-06-10] MEDS: LISINOPRIL 20 MG TABLET PO SCH (08:16)
[2020-06-10] MEDS: amLODIPine BESYLATE 10 MG TABLET PO SCH (08:17)
[2020-06-10] MEDS: PANTOPRAZOLE 40 MG TABLET.DR. PO SCH (08:17)
[2020-06-10] MEDS: hydroCHLOROthiazide 12.5 MG CAPSULE PO SCH (08:17)
[2020-06-10] MEDS: methIMAzole 10 MG TABLET PO SCH ×2 (08:17→21:11)
--- NOTE | 2020-06-10 08:26 | RAD ---
EXAM: AP View of the chest DATE: 06/10/2020 7:24 AM INDICATION: Shortness of breath COMPARISON: 06/07/2020, 06/08/2020 FINDINGS/ IMPRESSION: The heart is not enlarged. Aorta is tortuous. Bilateral perihilar and lung bas patchy e airspace opacities are seen with interstitial prominence may represent changes of pulmonary edema or infectious or inflammatory process. Small bilateral pleural effusions. No pneumothorax. Imaging follow-up to resolution is recommended. Electronically signed by: Arvin Osborn MD (06/10/2020 8:23 AM) [id number]
[2020-06-10] MEDS: INSULIN LISPRO 300 UNITS/3 ML VIAL. SQ SCH ×3 (08:54→17:42)
[2020-06-10] MEDS: STERILE WATER for RESP 1,000 ML BAG. INH PRN ×2 (10:04→18:28)
--- NOTE | 2020-06-10 10:27 | PDOC ---
PULMONARY PROGRESS NOTES Subjective Patient off of BiPAP no increasing shortness of breath No chest pain no pressure no increasing shortness of breath Vitals Vital Signs Date Time Temp Pulse Resp B/P (MAP) Pulse Ox O2 Delivery O2 Flow Rate FiO2 06/10/20 10:17 88 27 139/60 (86) 95 vapotherm 40.0 06/10/20 00:00 98.6 98.6 General: Alert Lungs: Clear Cardiovascular: S1, S2 Abdomen: Soft Neuro Exam: Alert Extremities: Other (+2 BLE ) Skin: Warm Labs Laboratory Tests Test 06/08/20 11:35 06/08/20 12:35 06/08/20 17:49 06/08/20 21:26 White Blood Count 23.2 x10^3/uL (4.0-11.0) Red Blood Count 3.51 x10^6/uL (3.50-5.40) Hemoglobin 9.5 g/dL (12.0-15.5) Hematocrit 29.4 % (36.0-47.0) Mean Corpuscular Volume 84 fL (79-100) Mean Corpuscular Hemoglobin 27 pg (25-35) Mean Corpuscular Hemoglobin Concent 32 g/dL (31-37) Red Cell Distribution Width 18.5 % (11.5-14.5) Platelet Count 253 x10^3/uL (140-400) Neutrophils (%) (Auto) 97 % (31-73) Lymphocytes (%) (Auto) 2 % (24-48) Monocytes (%) (Auto) 2 % (0-9) Eosinophils (%) (Auto) 0 % (0-3) Basophils (%) (Auto) 0 % (0-3) Neutrophils # (Auto) 22.4 x10^3/uL (1.8-7.7) Lymphocytes # (Auto) 0.3 x10^3/uL (1.0-4.8) Monocytes # (Auto) 0.4 x10^3/uL (0.0-1.1) Eosinophils # (Auto) 0.0 x10^3/uL (0.0-0.7) Basophils # (Auto) 0.0 x10^3/uL (0.0-0.2) Segmented Neutrophils % 92 % (35-66) Band Neutrophils % 5 % (0-9) Lymphocytes % 1 % (24-48) Monocytes % 2 % (0-10) Platelet Estimate Adequate (ADEQUATE) Polychromasia Present Basophilic Stippling Present Anisocytosis Slight Sodium Level 146 mmol/L (136-145) Potassium Level 3.8 mmol/L (3.5-5.1) Chloride Level 108 mmol/L (98-107) Carbon Dioxide Level 31 mmol/L (21-32) Anion Gap 7 (6-14) Blood Urea Nitrogen 33 mg/dL (7-20) Creatinine 0.8 mg/dL (0.6-1.0) Estimated GFR (Cockcroft-Gault) 71.3 BUN/Creatinine Ratio 41 (6-20) Glucose Level 158 mg/dL (70-99) Calcium Level 7.4 mg/dL (8.5-10.1) Magnesium Level 1.9 mg/dL (1.8-2.4) Total Bilirubin 0.5 mg/dL (0.2-1.0) Aspartate Amino Transf (AST/SGOT) 26 U/L (15-37) Alanine Aminotransferase (ALT/SGPT) 41 U/L (14-59) Alkaline Phosphatase 222 U/L (46-116) Total Protein 5.5 g/dL (6.4-8.2) Albumin 1.9 g/dL (3.4-5.0) Albumin/Globulin Ratio 0.5 (1.0-1.7) Glucose (Fingerstick) 161 mg/dL (70-99) 387 mg/dL (70-99) 266 mg/dL (70-99) Test 06/09/20 06:03 06/09/20 08:46 06/09/20 12:54 06/09/20 13:20 Glucose (Fingerstick) 339 mg/dL (70-99) 335 mg/dL (70-99) 409 mg/dL (70-99) White Blood Count 16.7 x10^3/uL (4.0-11.0) Red Blood Count 3.38 x10^6/uL (3.50-5.40) Hemoglobin 9.2 g/dL (12.0-15.5) Hematocrit 28.7 % (36.0-47.0) Mean Corpuscular Volume 85 fL (79-100) Mean Corpuscular Hemoglobin 27 pg (25-35) Mean Corpuscular Hemoglobin Concent 32 g/dL (31-37) Red Cell Distribution Width 18.7 % (11.5-14.5) Platelet Count 227 x10^3/uL (140-400) Neutrophils (%) (Auto) 96 % (31-73) Lymphocytes (%) (Auto) 2 % (24-48) Monocytes (%) (Auto) 2 % (0-9) Eosinophils (%) (Auto) 0 % (0-3) Basophils (%) (Auto) 0 % (0-3) Neutrophils # (Auto) 16.0 x10^3/uL (1.8-7.7) Lymphocytes # (Auto) 0.3 x10^3/uL (1.0-4.8) Monocytes # (Auto) 0.3 x10^3/uL (0.0-1.1) Eosinophils # (Auto) 0.0 x10^3/uL (0.0-0.7) Basophils # (Auto) 0.0 x10^3/uL (0.0-0.2) Sodium Level 140 mmol/L (136-145) Potassium Level 3.8 mmol/L (3.5-5.1) Chloride Level 104 mmol/L (98-107) Carbon Dioxide Level 31 mmol/L (21-32) Anion Gap 5 (6-14) Blood Urea Nitrogen 36 mg/dL (7-20) Creatinine 0.9 mg/dL (0.6-1.0) Estimated GFR (Cockcroft-Gault) 62.3 Glucose Level 434 mg/dL (70-99) Calcium Level 7.5 mg/dL (8.5-10.1) Test 06/09/20 17:36 06/09/20 21:17 06/10/20 04:35 06/10/20 08:22 Glucose (Fingerstick) 435 mg/dL (70-99) 327 mg/dL (70-99) 337 mg/dL (70-99) White Blood Count 19.2 x10^3/uL (4.0-11.0) Red Blood Count 3.32 x10^6/uL (3.50-5.40) Hemoglobin 9.1 g/dL (12.0-15.5) Hematocrit 28.0 % (36.0-47.0) Mean Corpuscular Volume 85 fL (79-100) Mean Corpuscular Hemoglobin 28 pg (25-35) Mean Corpuscular Hemoglobin Concent 33 g/dL (31-37) Red Cell Distribution Width 18.8 % (11.5-14.5) Platelet Count 224 x10^3/uL (140-400) Neutrophils (%) (Auto) 95 % (31-73) Lymphocytes (%) (Auto) 2 % (24-48) Monocytes (%) (Auto) 3 % (0-9) Eosinophils (%) (Auto) 0 % (0-3) Basophils (%) (Auto) 0 % (0-3) Neutrophils # (Auto) 18.4 x10^3/uL (1.8-7.7) Lymphocytes # (Auto) 0.4 x10^3/uL (1.0-4.8) Monocytes # (Auto) 0.5 x10^3/uL (0.0-1.1) Eosinophils # (Auto) 0.0 x10^3/uL (0.0-0.7) Basophils # (Auto) 0.0 x10^3/uL (0.0-0.2) Sodium Level 142 mmol/L (136-145) Potassium Level 3.6 mmol/L (3.5-5.1) Chloride Level 105 mmol/L (98-107) Carbon Dioxide Level 31 mmol/L (21-32) Anion Gap 6 (6-14) Blood Urea Nitrogen 30 mg/dL (7-20) Creatinine 0.8 mg/dL (0.6-1.0) Estimated GFR (Cockcroft-Gault) 71.3 Glucose Level 387 mg/dL (70-99) Calcium Level 7.6 mg/dL (8.5-10.1) Laboratory Tests Test 06/09/20 12:54 06/09/20 13:20 06/09/20 17:36 06/09/20 21:17 Glucose (Fingerstick) 409 mg/dL (70-99) 435 mg/dL (70-99) 327 mg/dL (70-99) White Blood Count 16.7 x10^3/uL (4.0-11.0) Red Blood Count 3.38 x10^6/uL (3.50-5.40) Hemoglobin 9.2 g/dL (12.0-15.5) Hematocrit 28.7 % (36.0-47.0) Mean Corpuscular Volume 85 fL (79-100) Mean Corpuscular Hemoglobin 27 pg (25-35) Mean Corpuscular Hemoglobin Concent 32 g/dL (31-37) Red Cell Distribution Width 18.7 % (11.5-14.5) Platelet Count 227 x10^3/uL (140-400) Neutrophils (%) (Auto) 96 % (31-73) Lymphocytes (%) (Auto) 2 % (24-48) Monocytes (%) (Auto) 2 % (0-9) Eosinophils (%) (Auto) 0 % (0-3) Basophils (%) (Auto) 0 % (0-3) Neutrophils # (Auto) 16.0 x10^3/uL (1.8-7.7) Lymphocytes # (Auto) 0.3 x10^3/uL (1.0-4.8) Monocytes # (Auto) 0.3 x10^3/uL (0.0-1.1) Eosinophils # (Auto) 0.0 x10^3/uL (0.0-0.7) Basophils # (Auto) 0.0 x10^3/uL (0.0-0.2) Sodium Level 140 mmol/L (136-145) Potassium Level 3.8 mmol/L (3.5-5.1) Chloride Level 104 mmol/L (98-107) Carbon Dioxide Level 31 mmol/L (21-32) Anion Gap 5 (6-14) Blood Urea Nitrogen 36 mg/dL (7-20) Creatinine 0.9 mg/dL (0.6-1.0) Estimated GFR (Cockcroft-Gault) 62.3 Glucose Level 434 mg/dL (70-99) Calcium Level 7.5 mg/dL (8.5-10.1) Test 06/10/20 04:35 06/10/20 08:22 White Blood Count 19.2 x10^3/uL (4.0-11.0) Red Blood Count 3.32 x10^6/uL (3.50-5.40) Hemoglobin 9.1 g/dL (12.0-15.5) Hematocrit 28.0 % (36.0-47.0) Mean Corpuscular Volume 85 fL (79-100) Mean Corpuscular Hemoglobin 28 pg (25-35) Mean Corpuscular Hemoglobin Concent 33 g/dL (31-37) Red Cell Distribution Width 18.8 % (11.5-14.5) Platelet Count 224 x10^3/uL (140-400) Neutrophils (%) (Auto) 95 % (31-73) Lymphocytes (%) (Auto) 2 % (24-48) Monocytes (%) (Auto) 3 % (0-9) Eosinophils (%) (Auto) 0 % (0-3) Basophils (%) (Auto) 0 % (0-3) Neutrophils # (Auto) 18.4 x10^3/uL (1.8-7.7) Lymphocytes # (Auto) 0.4 x10^3/uL (1.0-4.8) Monocytes # (Auto) 0.5 x10^3/uL (0.0-1.1) Eosinophils # (Auto) 0.0 x10^3/uL (0.0-0.7) Basophils # (Auto) 0.0 x10^3/uL (0.0-0.2) Sodium Level 142 mmol/L (136-145) Potassium Level 3.6 mmol/L (3.5-5.1) Chloride Level 105 mmol/L (98-107) Carbon Dioxide Level 31 mmol/L (21-32) Anion Gap 6 (6-14) Blood Urea Nitrogen 30 mg/dL (7-20) Creatinine 0.8 mg/dL (0.6-1.0) Estimated GFR (Cockcroft-Gault) 71.3 Glucose Level 387 mg/dL (70-99) Calcium Level 7.6 mg/dL (8.5-10.1) Glucose (Fingerstick) 337 mg/dL (70-99) Medications Active Scripts Medications Dose Route/Sig Max Daily Dose Days Date Category Actos (Pioglitazone Hcl) 45 Mg Tablet 1 Tab PO DAILY 30 05/18/20 Reported Diclofenac Sodium 75 Mg Tablet.dr 1 Tab PO BID 05/18/20 Reported Klor-Con 10 (Potassium Chloride) 10 Meq Tablet.er 1 Tab PO DAILY 30 05/18/20 Reported Metformin Hcl 1,000 Mg Tablet 1,000 Mg PO BIDWMEALS 05/18/20 Reported Omeprazole 20 Mg Capsule.dr 1 Cap PO DAILY 05/18/20 Reported Lisinopril-Hctz 20-25 Mg Tab (Lisinopril/Hydrochlorothiazide) 1 Each Tablet 1 Tab PO DAILY 05/18/20 Reported Aspirin Ec (Aspirin) 81 Mg Tablet.dr 1 Tab PO DAILY 05/18/20 Reported Hydralazine Hcl 100 Mg Tablet 1 Tab PO BID 05/18/20 Reported Metoprolol Tartrate 50 Mg Tablet 1 Tab PO BID 05/18/20 Reported Rosuvastatin Calcium 10 Mg Tablet 10 Mg PO DAILY 05/18/20 Reported Comments CXR : reviewed Moderate bilateral infiltrates could be secondary to atypical pneumonia or CHF. This appears similar to the prior study although there is improved aeration of the left lung base. Impression . IMPRESSION: 1. Acute hypoxic respiratory failure secondary to COVID-19 2. Abnormal chest x-ray/ARDS 3. Fever, resolved 4. Hypoglycemic encephalopathy, resolved. 5. Severe protein-calorie malnutrition. 6. Mild azotemia. 7. SARS-CoV-2 negative x2, May 18, May 19 8. Negative blood cultures 9. Possible Boop 10. Negative CT angiogram for PE 11. Acute lung injury 11. SARS-CoV-2 positive on May 31/COV cxr 06/08 IMPRESSION: Moderate prominent bilateral interstitial lung markings likely congestive changes or interstitial infiltrates. Follow-up to resolution. Impression: CT Chest 1. No evidence of pulmonary embolism. 2. Mild left effusion and moderate bilateral infiltrates right worse than left. This could be ARDS or pulmonary edema or atypical pneumonia. Plan . Continue current support, chest x-ray improved Up to chair Advance diet Will continue current support PRN BiPAP D-dimer noted, continue Lovenox twice daily Continue antiviral, SARS COVID 2, reported positive from 05/31, s/p Remdesivir cont steroid ABX per ID DM per IM HTN per IM PT/OT D/W RN and RT KING WHITTINGTON MD Jun 10, 2020 10:27
[2020-06-10] MEDS: ACETAMINOPHEN 325 MG TABLET. PO PRN (12:33)
[2020-06-10] MEDS: DOCUSATE SODIUM 100 MG CAPSULE. PO PRN ×3 (12:33→22:32)
--- NOTE | 2020-06-10 13:44 | PDOC ---
PROGRESS NOTES Chief Complaint Chief Complaint Acute hypoxic respiratory failure secondary to multifocal infiltrate/pleural effusions Sepsis, POA Hyperthyroidism likely Graves Dz Hypoglycemia encephalopathy,resolved Severe protein-calorie malnutrition. DM2, HTN urinary retention, maldonado in place COVID + 05/30 - COVID-19 negative on 05/18/2020 and 05/19/2020. Remdesivir started 06/01 Pneumonia. sputum cx: Resp gerri. Off vanc/Zosyn/doxy. Off Augmentin CHF Severe protein-calorie malnutrition Gram-positive cocci bacteremia, 05/18/2020, 1 out of 2 bottles, ID MICROCOCCUS SPECIES, likely a contaminant. Bradycardia--holding BB for now plan: currently on bipap. weaned steroids, off abx now. d dimer elevated, but CTA negative for PE. on BID lovenox. advance diet as tolerated History of Present Illness History of Present Illness better today. on bipap, no complaints Vitals Vitals Vital Signs Date Time Temp Pulse Resp B/P (MAP) Pulse Ox O2 Delivery O2 Flow Rate FiO2 06/10/20 13:04 97 30 130/60 (83) 93 06/10/20 12:10 98.8 vapothern 98.8 06/10/20 11:46 40.0 Physical Exam Physical Exam GENERAL: Propped up in bed, alert, calm - appears comfortable HEENT: On BiPAP NECK: Supple. LUNGS: CTA HEART: S1, S2. regular ABDOMEN: Obese, soft, nontender : Maldonado in place EXTREMITIES: trace edema lower extremities bilaterally. No cyanosis DERMATOLOGIC: Warm, dry. No generalized rash. NEUROLOGIC: Alert, responds appropriately General: Alert, Cooperative, No acute distress Heart: Regular rate, Normal S1, Normal S2, No murmurs Lungs: Clear Abdomen: Normal bowel sounds, Soft, No tenderness, No hepatosplenomegaly Labs LABS Laboratory Tests Test 06/09/20 17:36 06/09/20 21:17 06/10/20 04:35 06/10/20 08:22 Glucose (Fingerstick) 435 mg/dL (70-99) 327 mg/dL (70-99) 337 mg/dL (70-99) White Blood Count 19.2 x10^3/uL (4.0-11.0) Red Blood Count 3.32 x10^6/uL (3.50-5.40) Hemoglobin 9.1 g/dL (12.0-15.5) Hematocrit 28.0 % (36.0-47.0) Mean Corpuscular Volume 85 fL (79-100) Mean Corpuscular Hemoglobin 28 pg (25-35) Mean Corpuscular Hemoglobin Concent 33 g/dL (31-37) Red Cell Distribution Width 18.8 % (11.5-14.5) Platelet Count 224 x10^3/uL (140-400) Neutrophils (%) (Auto) 95 % (31-73) Lymphocytes (%) (Auto) 2 % (24-48) Monocytes (%) (Auto) 3 % (0-9) Eosinophils (%) (Auto) 0 % (0-3) Basophils (%) (Auto) 0 % (0-3) Neutrophils # (Auto) 18.4 x10^3/uL (1.8-7.7) Lymphocytes # (Auto) 0.4 x10^3/uL (1.0-4.8) Monocytes # (Auto) 0.5 x10^3/uL (0.0-1.1) Eosinophils # (Auto) 0.0 x10^3/uL (0.0-0.7) Basophils # (Auto) 0.0 x10^3/uL (0.0-0.2) Sodium Level 142 mmol/L (136-145) Potassium Level 3.6 mmol/L (3.5-5.1) Chloride Level 105 mmol/L (98-107) Carbon Dioxide Level 31 mmol/L (21-32) Anion Gap 6 (6-14) Blood Urea Nitrogen 30 mg/dL (7-20) Creatinine 0.8 mg/dL (0.6-1.0) Estimated GFR (Cockcroft-Gault) 71.3 Glucose Level 387 mg/dL (70-99) Calcium Level 7.6 mg/dL (8.5-10.1) Test 06/10/20 11:33 Glucose (Fingerstick) 312 mg/dL (70-99) Assessment and Plan Assessmemt and Plan Problems Medical Problems: (1) Altered mental status Status: Acute (2) Hypoglycemia Status: Acute (3) Hypothermia Status: Acute Comment Review of Relevant I have reviewed the following items kavya (where applicable) has been applied. Labs Laboratory Tests Test 06/08/20 17:49 06/08/20 21:26 06/09/20 06:03 06/09/20 08:46 Glucose (Fingerstick) 387 mg/dL (70-99) 266 mg/dL (70-99) 339 mg/dL (70-99) 335 mg/dL (70-99) Test 06/09/20 12:54 06/09/20 13:20 06/09/20 17:36 06/09/20 21:17 Glucose (Fingerstick) 409 mg/dL (70-99) 435 mg/dL (70-99) 327 mg/dL (70-99) White Blood Count 16.7 x10^3/uL (4.0-11.0) Red Blood Count 3.38 x10^6/uL (3.50-5.40) Hemoglobin 9.2 g/dL (12.0-15.5) Hematocrit 28.7 % (36.0-47.0) Mean Corpuscular Volume 85 fL (79-100) Mean Corpuscular Hemoglobin 27 pg (25-35) Mean Corpuscular Hemoglobin Concent 32 g/dL (31-37) Red Cell Distribution Width 18.7 % (11.5-14.5) Platelet Count 227 x10^3/uL (140-400) Neutrophils (%) (Auto) 96 % (31-73) Lymphocytes (%) (Auto) 2 % (24-48) Monocytes (%) (Auto) 2 % (0-9) Eosinophils (%) (Auto) 0 % (0-3) Basophils (%) (Auto) 0 % (0-3) Neutrophils # (Auto) 16.0 x10^3/uL (1.8-7.7) Lymphocytes # (Auto) 0.3 x10^3/uL (1.0-4.8) Monocytes # (Auto) 0.3 x10^3/uL (0.0-1.1) Eosinophils # (Auto) 0.0 x10^3/uL (0.0-0.7) Basophils # (Auto) 0.0 x10^3/uL (0.0-0.2) Sodium Level 140 mmol/L (136-145) Potassium Level 3.8 mmol/L (3.5-5.1) Chloride Level 104 mmol/L (98-107) Carbon Dioxide Level 31 mmol/L (21-32) Anion Gap 5 (6-14) Blood Urea Nitrogen 36 mg/dL (7-20) Creatinine 0.9 mg/dL (0.6-1.0) Estimated GFR (Cockcroft-Gault) 62.3 Glucose Level 434 mg/dL (70-99) Calcium Level 7.5 mg/dL (8.5-10.1) Test 06/10/20 04:35 06/10/20 08:22 06/10/20 11:33 White Blood Count 19.2 x10^3/uL (4.0-11.0) Red Blood Count 3.32 x10^6/uL (3.50-5.40) Hemoglobin 9.1 g/dL (12.0-15.5) Hematocrit 28.0 % (36.0-47.0) Mean Corpuscular Volume 85 fL (79-100) Mean Corpuscular Hemoglobin 28 pg (25-35) Mean Corpuscular Hemoglobin Concent 33 g/dL (31-37) Red Cell Distribution Width 18.8 % (11.5-14.5) Platelet Count 224 x10^3/uL (140-400) Neutrophils (%) (Auto) 95 % (31-73) Lymphocytes (%) (Auto) 2 % (24-48) Monocytes (%) (Auto) 3 % (0-9) Eosinophils (%) (Auto) 0 % (0-3) Basophils (%) (Auto) 0 % (0-3) Neutrophils # (Auto) 18.4 x10^3/uL (1.8-7.7) Lymphocytes # (Auto) 0.4 x10^3/uL (1.0-4.8) Monocytes # (Auto) 0.5 x10^3/uL (0.0-1.1) Eosinophils # (Auto) 0.0 x10^3/uL (0.0-0.7) Basophils # (Auto) 0.0 x10^3/uL (0.0-0.2) Sodium Level 142 mmol/L (136-145) Potassium Level 3.6 mmol/L (3.5-5.1) Chloride Level 105 mmol/L (98-107) Carbon Dioxide Level 31 mmol/L (21-32) Anion Gap 6 (6-14) Blood Urea Nitrogen 30 mg/dL (7-20) Creatinine 0.8 mg/dL (0.6-1.0) Estimated GFR (Cockcroft-Gault) 71.3 Glucose Level 387 mg/dL (70-99) Calcium Level 7.6 mg/dL (8.5-10.1) Glucose (Fingerstick) 337 mg/dL (70-99) 312 mg/dL (70-99) Laboratory Tests Test 06/09/20 17:36 06/09/20 21:17 06/10/20 04:35 06/10/20 08:22 Glucose (Fingerstick) 435 mg/dL (70-99) 327 mg/dL (70-99) 337 mg/dL (70-99) White Blood Count 19.2 x10^3/uL (4.0-11.0) Red Blood Count 3.32 x10^6/uL (3.50-5.40) Hemoglobin 9.1 g/dL (12.0-15.5) Hematocrit 28.0 % (36.0-47.0) Mean Corpuscular Volume 85 fL (79-100) Mean Corpuscular Hemoglobin 28 pg (25-35) Mean Corpuscular Hemoglobin Concent 33 g/dL (31-37) Red Cell Distribution Width 18.8 % (11.5-14.5) Platelet Count 224 x10^3/uL (140-400) Neutrophils (%) (Auto) 95 % (31-73) Lymphocytes (%) (Auto) 2 % (24-48) Monocytes (%) (Auto) 3 % (0-9) Eosinophils (%) (Auto) 0 % (0-3) Basophils (%) (Auto) 0 % (0-3) Neutrophils # (Auto) 18.4 x10^3/uL (1.8-7.7) Lymphocytes # (Auto) 0.4 x10^3/uL (1.0-4.8) Monocytes # (Auto) 0.5 x10^3/uL (0.0-1.1) Eosinophils # (Auto) 0.0 x10^3/uL (0.0-0.7) Basophils # (Auto) 0.0 x10^3/uL (0.0-0.2) Sodium Level 142 mmol/L (136-145) Potassium Level 3.6 mmol/L (3.5-5.1) Chloride Level 105 mmol/L (98-107) Carbon Dioxide Level 31 mmol/L (21-32) Anion Gap 6 (6-14) Blood Urea Nitrogen 30 mg/dL (7-20) Creatinine 0.8 mg/dL (0.6-1.0) Estimated GFR (Cockcroft-Gault) 71.3 Glucose Level 387 mg/dL (70-99) Calcium Level 7.6 mg/dL (8.5-10.1) Test 06/10/20 11:33 Glucose (Fingerstick) 312 mg/dL (70-99) Microbiology 05/26/20 Gram Stain Evaluation - Final, Complete 05/26/20 Respiratory Culture - Final, Complete 05/24/20 Blood Culture - Final, Complete NO GROWTH AFTER 5 DAYS 05/18/20 Urine Culture - Final, Complete Medications Current Medications Sodium Chloride 1,000 ml @ 1,000 mls/hr 1X ONCE IV Last administered on 05/18/20at 09:29; Start 05/18/20 at 09:15; Stop 05/18/20 at 10:14; Status DC Ceftriaxone Sodium (Rocephin) 1 gm 1X ONCE IVP Last administered on 05/18/20at 09:28; Start 05/18/20 at 09:15; Stop 05/18/20 at 09:16; Status DC Ondansetron HCl (Zofran) 4 mg PRN Q8HRS PRN IV NAUSEA/VOMITING; Start 05/18/20 at 10:15; Stop 05/18/20 at 16:24; Status DC Acetaminophen (Tylenol) 650 mg PRN Q4HRS PRN PO FEVER > 100.3'F; Start 05/18/20 at 10:15; Stop 05/18/20 at 16:24; Status DC Ceftriaxone Sodium (Rocephin) 1 gm Q24H IVP Last administered on 05/24/20at 09:09; Start 05/19/20 at 09:00; Stop 05/24/20 at 18:10; Status DC Sodium Chloride (Normal Saline Flush) 3 ml QSHIFT PRN IV AFTER MEDS AND BLOOD DRAWS; Start 05/18/20 at 16:30 Sodium Chloride 1,000 ml @ 85 mls/hr [id number] IV Last administered on 05/24/20at 18:31; Start 05/18/20 at 16:20; Stop 05/25/20 at 09:44; Status DC Ondansetron HCl (Zofran) 4 mg PRN Q4HRS PRN IV NAUSEA/VOMITING; Start 05/18/20 at 16:30 Acetaminophen (Tylenol) 650 mg PRN Q4HRS PRN PO TEMP OVER 100.4F OR MILD PAIN Last administered on 06/10/20at 12:33; Start 05/18/20 at 16:30 Acetaminophen (Tylenol Supp) 650 mg PRN Q4HRS PRN WA TEMP OVER 100.4F OR MILD PAIN; Start 05/18/20 at 16:30 Sodium Monofluorophosphate (Fleet Adult) 133 ml PRN DAILY PRN WA CONSTIPATION; Start 05/18/20 at 16:30 Docusate Sodium (Colace) 100 mg PRN BID PRN PO HARD STOOLS Last administered on 06/10/20at 12:33; Start 05/18/20 at 16:30 Albuterol Sulfate (Ventolin Neb Soln) 2.5 mg PRN Q4HRS PRN NEB SHORTNESS OF BREATH Last administered on 05/21/20at 18:14; Start 05/18/20 at 16:30; Stop 05/31/20 at 16:19; Status DC Guaifenesin (Robitussin) 200 mg PRN Q4HRS PRN PO COUGH Last administered on 05/23/20at 20:00; Start 05/18/20 at 16:30 Enoxaparin Sodium (Lovenox 40mg Syringe) 40 mg Q24H SQ Last administered on 05/31/20at 17:03; Start 05/18/20 at 17:00; Stop 06/01/20 at 10:27; Status DC Aspirin (Ecotrin) 81 mg DAILY PO Last administered on 06/10/20at 08:16; Start 05/19/20 at 09:00 Metoprolol Tartrate (Lopressor) 50 mg BID PO Last administered on 05/21/20at 09:16; Start 05/19/20 at 09:00; Stop 05/21/20 at 15:45; Status DC Diclofenac Sodium (Voltaren) 75 mg BID PO Last administered on 06/03/20 20:29; Start 05/19/20 at 10:00; Stop 06/04/20 at 08:03; Status DC Hydralazine HCl (Apresoline) 100 mg BID PO Last administered on 05/21/20 09:15; Start 05/19/20 at 09:00; Stop 05/21/20 at 15:45; Status DC Lisinopril (Prinivil) 20 mg DAILY PO Last administered on 05/21/20 09:16; Start 05/19/20 at 10:00; Stop 05/21/20 at 15:45; Status DC Pantoprazole Sodium (Protonix) 40 mg DAILYAC PO Last administered on 06/10/20 08:17; Start 05/19/20 at 10:00 Atorvastatin Calcium (Lipitor) 40 mg QHS PO Last administered on 06/09/20 21:13; Start 05/19/20 at 21:00 Hydrochlorothiazide (Hydrodiuril) 25 mg DAILY PO Last administered on 05/23/20 08:59; Start 05/19/20 at 10:00; Stop 05/23/20 at 10:22; Status DC Lactobacillus Rhamnosus (Culturelle) 1 cap BID PO Last administered on 06/10/20 08:16; Start 05/19/20 at 21:00 Insulin Human Lispro (HumaLOG) 0-7 UNITS TIDWMEALS SQ Last administered on 06/10/20 12:35; Start 05/19/20 at 17:00 Dextrose (Dextrose 50%-Water Syringe) 12.5 gm PRN Q15MIN PRN IV SEE COMMENTS Last administered on 06/04/20at 06:52; Start 05/19/20 at 14:15 Methimazole (Tapazole) 5 mg BID PO Last administered on 06/10/20 08:17; Start 05/20/20 at 10:00 Insulin Glargine (Lantus Syringe) 5 unit DAILY SQ Last administered on 05/22/20at 09:15; Start 05/21/20 at 09:00; Stop 05/22/20 at 21:05; Status DC Doxycycline Hyclate (Vibra-Tab) 100 mg BID PO Last administered on 05/28/20at 08:53; Start 05/21/20 at 15:00; Stop 05/28/20 at 15:02; Status DC Furosemide (Lasix) 20 mg 1X ONCE IVP Last administered on 05/21/20at 17:05; Start 05/21/20 at 17:00; Stop 05/21/20 at 17:01; Status DC Sterile Water (WATER for RESP) 1,000 ml CONT PRN INH VIA VAPOTHERM DEVICE Last administered on 05/23/20at 16:26; Start 05/21/20 at 17:15; Stop 05/30/20 at 12:58; Status DC Albuterol Sulfate (Ventolin Neb Soln) 2.5 mg Q4HRS NEB Last administered on 05/30/20at 15:45; Start 05/21/20 at 20:00; Stop 05/31/20 at 16:19; Status DC Vancomycin HCl (Vanco Per Pharmacy) 1 each PRN DAILY PRN MC SEE COMMENTS Last administered on 05/25/20at 23:52; Start 05/22/20 at 09:00; Stop 05/27/20 at 16:29; Status DC Vancomycin HCl 2 gm/Sodium Chloride 500 ml @ 250 mls/hr 1X ONCE IV Last administered on 05/22/20at 09:05; Start 05/22/20 at 09:00; Stop 05/22/20 at 10:59; Status DC Vancomycin HCl 1.25 gm/Sodium Chloride 250 ml @ 167 mls/hr Q24H IV Last adm inistered on 05/23/20at 09:00; Start 05/23/20 at 09:00; Stop 05/24/20 at 10:05; Status DC Vancomycin HCl (Vancomycin Trough Level) 1 each 1X ONCE MC Last administered on 05/24/20at 08:30; Start 05/24/20 at 08:30; Stop 05/24/20 at 08:31; Status DC Methylprednisolone Sodium Succinate (SOLU-Medrol 125MG VIAL) 80 mg Q8HRS IV Last administered on 05/27/20at 06:04; Start 05/22/20 at 14:00; Stop 05/27/20 at 12:02; Status DC Insulin Glargine (Lantus Syringe) 10 unit BID SQ Last administered on 05/23/20at 09:11; Start 05/22/20 at 21:00; Stop 05/23/20 at 20:17; Status DC Metoprolol Tartrate (Lopressor) 50 mg BID PO Last administered on 06/08/20at 08:23; Start 05/23/20 at 10:30; Stop 06/08/20 at 10:43; Status DC Hydrochlorothiazide (Microzide) 12.5 mg DAILY PO Last administered on 06/10/20at 08:17; Start 05/24/20 at 09:00 Potassium Chloride (Klor-Con) 40 meq Q2H PO Last administered on 05/23/20at 14:58; Start 05/23/20 at 10:30; Stop 05/23/20 at 14:31; Status DC Lisinopril (Prinivil) 40 mg DAILY PO Last administered on 06/10/20at 08:16; Start 05/23/20 at 10:30 Hydralazine HCl (Apresoline) 100 mg BID PO Last administered on 06/10/20at 08:17; Start 05/23/20 at 10:30 Insulin Glargine (Lantus Syringe) 10 unit BID SQ Last administered on 05/24/20at 09:14; Start 05/23/20 at 21:00; Stop 05/24/20 at 11:28; Status DC Vancomycin HCl 1.25 gm/Sodium Chloride 250 ml @ 167 mls/hr Q12H IV Last administered on 05/27/20at 08:21; Start 05/24/20 at 10:30; Stop 05/27/20 at 16:26; Status DC Vancomycin HCl (Vancomycin Trough Level) 1 each 1X ONCE MC Last administered on 05/25/20at 22:00; Start 05/25/20 at 22:00; Stop 05/25/20 at 22:01; Status DC Insulin Glargine (Lantus Syringe) 12 unit BID SQ ; Start 05/24/20 at 21:00; Stop 05/24/20 at 17:27; Status DC Insulin Glargine (Lantus Syringe) 15 unit BID SQ Last administered on 05/25/20at 08:19; Start 05/24/20 at 21:00; Stop 05/25/20 at 09:47; Status DC Insulin Human Lispro (HumaLOG) 7 units 1X ONCE SQ Last administered on 05/24/20at 18:01; Start 05/24/20 at 17:30; Stop 05/24/20 at 17:31; Status DC Piperacillin Sod/ Tazobactam Sod 3.375 gm/Sodium Chloride 50 ml @ 100 mls/hr Q6HRS IV Last administered on 05/28/20at 12:09; Start 05/24/20 at 18:30; Stop 05/28/20 at 15:01; Status DC Insulin Human Lispro (HumaLOG) 11 units 1X SQ ; Start 05/24/20 at 21:30; Status Cancel Insulin Human Lispro (HumaLOG) 11 units 1X ONCE SQ Last administered on 05/24/20at 22:25; Start 05/24/20 at 22:00; Stop 05/24/20 at 22:01; Status DC Furosemide (Lasix) 20 mg 1X ONCE IVP Last administered on 05/25/20at 11:12; Start 05/25/20 at 10:00; Stop 05/25/20 at 10:01; Status DC Insulin Glargine (Lantus Syringe) 18 unit BID SQ Last administered on 05/27/20at 08:33; Start 05/25/20 at 21:00; Stop 05/27/20 at 12:00; Status DC Midazolam HCl (Versed) 2 mg 1X ONCE IV ; Start 05/25/20 at 10:30; Stop 05/25/20 at 10:31; Status Cancel Fentanyl Citrate (Fentanyl 2ml Vial) 50 mcg 1X ONCE IM ; Start 05/25/20 at 10:30; Stop 05/25/20 at 10:31; Status Cancel Hydralazine HCl (Apresoline Inj) 10 mg PRN Q4HRS PRN IVP ELEVATED BP, SEE COMMENTS Last administered on 06/10/20at 01:08; Start 05/25/20 at 16:15 Potassium Chloride (Klor-Con) 40 meq 1X ONCE PO Last administered on 05/26/20at 18:43; Start 05/26/20 at 18:30; Stop 05/26/20 at 18:31; Status DC Insulin Glargine (Lantus Syringe) 22 unit BID SQ Last administered on 05/29/20at 08:24; Start 05/27/20 at 21:00; Stop 05/29/20 at 12:14; Status DC Methylprednisolone Sodium Succinate (SOLU-Medrol 125MG VIAL) 40 mg Q12HR IV Last administered on 05/28/20at 08:52; Start 05/27/20 at 19:00; Stop 05/28/20 at 13:37; Status DC Nystatin (Nystatin Oral Susp) 5 ml [id number] Last administered on 06/10/20at 12:33; Start 05/27/20 at 17:00 Insulin Human Lispro (HumaLOG) 20 units 1X ONCE SQ Last administered on 05/27/20at 17:32; Start 05/27/20 at 17:30; Stop 05/27/20 at 17:31; Status DC Methylprednisolone Sodium Succinate (SOLU-Medrol 40MG VIAL) 40 mg Q12HR IV Last administered on 05/30/20at 08:34; Start 05/28/20 at 21:00; Stop 05/30/20 at 14:10; Status DC Amoxicillin/ Clavulanate Potassium (Augmentin 875/ 125mg) 1 tab BID PO Last administered on 05/31/20at 19:53; Start 05/28/20 at 21:00; Stop 05/31/20 at 21:01; Status DC Amlodipine Besylate (Norvasc) 2.5 mg DAILY PO Last administered on 06/09/20at 08:40; Start 05/29/20 at 11:45; Stop 06/10/20 at 02:44; Status DC Furosemide (Lasix) 20 mg 1X ONCE PO Last administered on 05/29/20at 12:40; Start 05/29/20 at 12:30; Stop 05/29/20 at 12:31; Status DC Potassium Chloride (Klor-Con) 20 meq 1X ONCE PO Last administered on 05/29/20at 12:40; Start 05/29/20 at 12:30; Stop 05/29/20 at 12:31; Status DC Insulin Glargine (Lantus Syringe) 25 unit BID SQ Last administered on 06/04/20at 07:58; Start 05/29/20 at 21:00; Stop 06/04/20 at 09:20; Status DC Furosemide (Lasix) 40 mg 1X ONCE IVP Last administered on 05/30/20at 11:47; Start 05/30/20 at 11:15; Stop 05/30/20 at 11:16; Status DC Iohexol (Omnipaque 350 Mg/ml) 100 ml 1X ONCE IV Last administered on 05/30/20at 12:00; Start 05/30/20 at 12:00; Stop 05/30/20 at 12:01; Status DC Info (CONTRAST GIVEN -- Rx MONITORING) 1 each PRN DAILY PRN MC SEE COMMENTS; Start 05/30/20 at 12:15; Stop 06/01/20 at 12:14; Status DC Sterile Water (WATER for RESP) 1,000 ml CONT PRN INH VIA VAPOTHERM DEVICE Last administered on 06/10/20at 10:04; Start 05/30/20 at 13:00 Methylprednisolone Sodium Succinate (SOLU-Medrol 125MG VIAL) 125 mg Q12HR IV Last administered on 06/09/20at 08:41; Start 05/30/20 at 14:15; Stop 06/09/20 at 13:11; Status DC Enoxaparin Sodium (Lovenox 40mg Syringe) 40 mg BID SQ Last administered on 06/10/20at 08:15; Start 06/01/20 at 21:00 Non-Formulary Medication 1 ea/ Sodium Chloride 210 ml @ 210 mls/hr 1X ONCE IV Last administered on 06/01/20at 17:11; Start 06/01/20 at 16:30; Stop 06/01/20 at 17:29; Status DC Non-Formulary Medication 1 ea/ Sodium Chloride 230 ml @ 460 mls/hr DAILY IV Last administered on 06/05/20at 17:38; Start 06/02/20 at 09:00; Stop 06/05/20 at 09:29; Status DC Potassium Chloride (Klor-Con) 40 meq 1X ONCE PO Last administered on 06/03/20at 09:51; Start 06/03/20 at 08:00; Stop 06/03/20 at 08:01; Status DC Diclofenac Sodium (Voltaren) 75 mg BID PO ; Start 06/04/20 at 08:03; Stop 06/04/20 at 08:04; Status DC Diclofenac Sodium (Voltaren) 75 mg BID PO Last administered on 06/10/20at 08:16; Start 06/04/20 at 09:00 Insulin Glargine (Lantus Syringe) 30 unit QHS SQ Last administered on 06/04/20at 21:14; Start 06/04/20 at 21:00; Stop 06/05/20 at 10:25; Status DC Insulin Glargine (Lantus Syringe) 15 unit QHS SQ Last administered on 06/09/20at 21:29; Start 06/05/20 at 21:00 Furosemide (Lasix) 40 mg 1X ONCE IVP Last administered on 06/08/20at 11:14; Start 06/08/20 at 11:00; Stop 06/08/20 at 11:02; Status DC Methylprednisolone Sodium Succinate (SOLU-Medrol 125MG VIAL) 60 mg BID IV Last administered on 06/10/20at 08:15; Start 06/09/20 at 21:00 Amlodipine Besylate (Norvasc) 10 mg 1X ONCE PO Last administered on 06/10/20at 03:16; Start 06/10/20 at 03:00; Stop 06/10/20 at 03:01; Status DC Amlodipine Besylate (Norvasc) 10 mg DAILY PO Last administered on 06/10/20at 08:17; Start 06/10/20 at 09:00 Hydralazine HCl (Apresoline Inj) 10 mg 1X ONCE IVP Last administered on 06/10/20at 03:16; Start 06/10/20 at 03:00; Stop 06/10/20 at 03:01; Status DC Active Scripts Active Reported Actos (Pioglitazone Hcl) 45 Mg Tablet 1 Tab PO DAILY 30 Days Diclofenac Sodium 75 Mg Tablet. 1 Tab PO BID Klor-Con 10 (Potassium Chloride) 10 Meq Tablet.er 1 Tab PO DAILY 30 Days Metformin Hcl 1,000 Mg Tablet 1,000 Mg PO BIDWMEALS Omeprazole 20 Mg Capsule.dr 1 Cap PO DAILY Lisinopril-Hctz 20-25 Mg Tab (Lisinopril/Hydrochlorothiazide) 1 Each Tablet 1 Tab PO DAILY Aspirin Ec (Aspirin) 81 Mg Tablet.dr 1 Tab PO DAILY Hydralazine Hcl 100 Mg Tablet 1 Tab PO BID Metoprolol Tartrate 50 Mg Tablet 1 Tab PO BID Rosuvastatin Calcium 10 Mg Tablet 10 Mg PO DAILY Vitals/I & O Vital Sign - Last 24 Hours 06/09/20 06/09/20 06/09/20 06/09/20 14:00 15:00 16:00 16:00 Temp 98.1 98.1 Pulse 66 73 67 Resp 27 26 30 B/P (MAP) 127/66 (86) 131/60 (83) 137/57 (83) Pulse Ox 94 89 91 O2 Delivery Vapotherm Vapotherm Vapotherm O2 Flow Rate 40.0 40.0 40.0 40.0 06/09/20 06/09/20 06/09/20 06/09/20 16:16 17:00 18:00 19:15 Temp 98.7 98.7 Pulse 73 70 73 Resp 28 28 40 B/P (MAP) 139/62 (87) 139/63 (88) 135/79 (97) Pulse Ox 91 90 89 96 O2 Delivery Vapotherm Vapotherm Vapotherm Nasal Cannula O2 Flow Rate 40.0 40.0 40.0 06/09/20 06/09/20 06/09/20 06/09/20 20:00 20:00 20:00 20:09 Pulse 80 Resp 35 B/P (MAP) 142/64 (90) Pulse Ox 97 97 O2 Delivery Bi-pap BiPAP/CPAP [id number] O2 Flow Rate 40.0 80.0 06/09/20 06/09/20 06/09/20 06/09/20 21:00 21:13 22:10 23:00 Pulse 77 80 77 96 Resp 26 40 B/P (MAP) 163/72 (102) 142/64 148/65 (92) 178/65 (102) Pulse Ox 92 28 95 O2 Delivery BiPAP/CPAP BiPAP/CPAP BiPAP/CPAP 06/09/20 06/10/20 06/10/20 06/10/20 23:21 00:00 00:00 00:00 Temp 98.6 98.6 Pulse 71 Resp 25 B/P (MAP) 183/67 (105) Pulse Ox 96 95 O2 Delivery [id number] BiPAP/CPAP Bi-pap O2 Flow Rate 40.0 40.0 06/10/20 06/10/20 06/10/20 06/10/20 01:00 01:08 03:09 03:16 Pulse 71 71 69 69 Resp 26 41 B/P (MAP) 190/77 (114) 190/77 177/68 (104) 177/68 Pulse Ox 95 95 O2 Delivery BiPAP/CPAP BiPAP/CPAP 06/10/20 06/10/20 06/10/2006/10/20 03:16 03:16 04:08 04:09 Pulse 69 80 Resp 25 B/P (MAP) 177/68 163/69 (100) Pulse Ox 96 96 O2 Delivery [id number] BiPAP/CPAP O2 Flow Rate 40.0 06/10/20 06/10/20 06/10/20 06/10/20 04:09 05:13 06:05 07:20 Pulse 74 75 72 Resp 20 25 24 B/P (MAP) 150/68 (95) 158/68 (98) 110/58 (75) Pulse Ox 96 96 98 O2 Delivery Bi-pap BiPAP/CPAP BiPAP/CPAP BiPAP/CPAP O2 Flow Rate 40.0 06/10/20 06/10/20 06/10/20 06/10/20 07:22 08:00 08:00 08:16 Pulse 72 B/P (MAP) 110/58 Pulse Ox 96 O2 Delivery [id number] Bi-pap O2 Flow Rate 40.0 40.0 06/10/20 06/10/20 06/10/20 06/10/20 08:17 08:17 09:00 10:05 Pulse 72 72 105 Resp 42 B/P (MAP) 110/58 110/58 85/33 (50) Pulse Ox 94 96 O2 Delivery vapotherm VAPOTHERM O2 Flow Rate 40.0 06/10/20 06/10/20 06/10/20 06/10/20 10:17 11:03 11:07 11:45 Pulse 88 91 Resp 27 28 B/P (MAP) 139/60 (86) 127/61 (83) Pulse Ox 95 96 96 O2 Delivery vapotherm vapotherm VAPOTHERM O2 Flow Rate 40.0 40.0 40.0 06/10/20 06/10/20 06/10/20 11:46 12:10 13:04 Temp 98.8 98.8 Pulse 75 97 Resp 26 30 B/P (MAP) 148/63 (91) 130/60 (83) Pulse Ox 93 93 O2 Delivery vapothern O2 Flow Rate 40.0 Intake and Output 06/09/20 06/09/20 06/10/20 15:00 23:00 07:00 Intake Total 860 ml 220 ml 100 ml Output Total 390 ml 561 ml 425 ml Balance 470 ml -341 ml -325 ml Justicifation of Admission Dx: Justifications for Admission: Justification of Admission Dx: Yes Altered Mental Status: Altered Mental Status SUYAPA MCCORMICK MD Jun 10, 2020 13:43
[2020-06-10] MEDS: INSULIN GLARGINE SYRINGE. SQ SCH ×2 (13:45→21:35)
--- NOTE | 2020-06-10 15:02 | NUR ---
SS following up with discharge planning. SS reviewed pt chart and discussed with pt RN. Pt COVID19 positive. Pt remains on vaptherm and BIPAP. Pt accepted at [facility]. [facility] insurance declined authorization. Appeal was completed and SS is currently awaiting decision from [facility] medical investigator. SS will continue to follow for discharge planning.
[2020-06-10] MEDS: ATORVASTATIN CALCIUM 40 MG TABLET. PO SCH (21:10)
[2020-06-11] VITALS (24 sets, daily range): BP systolic 110–154; BP diastolic 51–73
--- NOTE | 2020-06-11 07:54 | PDOC ---
Infectious Disease Note Subjective Subjective pt is awake, says breathing ok ROS ROS No nausea vomiting diarrhea chest pain Vital Sign Vital Signs Vital Signs Date Time Temp Pulse Resp B/P (MAP) Pulse Ox O2 Delivery O2 Flow Rate FiO2 06/11/20 06:00 68 32 146/68 (94) 96 BiPAP/CPAP 06/11/20 04:00 98.0 98.0 06/10/20 19:44 40.0 Physical Exam PHYSICAL EXAM GENERAL: Propped up in bed, alert, calm - appears comfortable HEENT: On BiPAP NECK: Supple. LUNGS: CTA HEART: S1, S2. regular ABDOMEN: Obese, soft, nontender : Galan in place EXTREMITIES: trace edema lower extremities bilaterally. No cyanosis DERMATOLOGIC: Warm, dry. No generalized rash. NEUROLOGIC: Alert, responds appropriately Labs Lab Laboratory Tests Test 06/10/20 08:22 06/10/20 11:33 06/10/20 17:15 06/10/20 21:22 Glucose (Fingerstick) 337 mg/dL (70-99) 312 mg/dL (70-99) 376 mg/dL (70-99) 290 mg/dL (70-99) Micro Microbiology 05/26/20 Gram Stain Evaluation - Final, Complete 05/26/20 Respiratory Culture - Final, Complete 05/24/20 Blood Culture - Final, Complete NO GROWTH AFTER 5 DAYS 05/18/20 Urine Culture - Final, Complete Objective Assessment COVID + 05/30 - COVID-19 negative on 05/18/2020 and 05/19/2020. Remdesivir given Acute hypoxic respiratory failure - on Bipap Pneumonia. sputum cx: Resp gerri. Off vanc/Zosyn/doxy. Off Augmentin Fever - now resolved Leukocytosis, on steroids. CHF Hypoglycemic encephalopathy, resolved. Diabetes. Hypertension. Severe protein-calorie malnutrition. Gram-positive cocci bacteremia, 05/18/2020, 1 out of 2 bottles, ID MICROCOCCUS SPECIES, likely a contaminant. Plan Plan of Care Steroids off abx Nystatin SWSW, 05/27 Maintain aspiration precautions Supportive care D/w nursing BYRON REDMOND MD Jun 11, 2020 07:54
[2020-06-11] MEDS: LACTOBACILLUS RHAMNOSUS GG 1 CAPSULE. PO SCH ×2 (08:27→20:34)
[2020-06-11] MEDS: LISINOPRIL 20 MG TABLET PO SCH (08:28)
[2020-06-11] MEDS: hydroCHLOROthiazide 12.5 MG CAPSULE PO SCH (08:29)
[2020-06-11] MEDS: methylPREDNISolone SOD SUCC PF 125 MG/2 ML VIAL. IV SCH (08:29)
[2020-06-11] MEDS: methIMAzole 10 MG TABLET PO SCH ×2 (08:29→20:31)
[2020-06-11] MEDS: amLODIPine BESYLATE 10 MG TABLET PO SCH (08:29)
[2020-06-11] MEDS: ASPIRIN ENTERIC COATED 81 MG TABLET.DR. PO SCH (08:29)
[2020-06-11] MEDS: PANTOPRAZOLE 40 MG TABLET.DR. PO SCH (08:29)
[2020-06-11] MEDS: NYSTATIN 100,000 UNITS/ML 5 ML ORAL.SUSP. SWSW SCH ×4 (08:35→20:34)
[2020-06-11] MEDS: DICLOFENAC SODIUM 25 MG TABLET.DR PO SCH (08:35)
[2020-06-11] MEDS ORDERED: ENOXAPARIN 40 MG/0.4 ML SYRINGE. SQ SCH (09:00)
[2020-06-11] MEDS: INSULIN LISPRO 300 UNITS/3 ML VIAL. SQ SCH ×3 (09:04→17:00)
[2020-06-11 09:34] LABS: HEMATOCRIT 27.8 % (36.0-47.0); HEMOGLOBIN 9.2 g/dL (12.0-15.5)
--- NOTE | 2020-06-11 11:05 | PDOC ---
PROGRESS NOTES Chief Complaint Chief Complaint Acute hypoxic respiratory failure secondary to multifocal infiltrate/pleural effusions Sepsis, POA Hyperthyroidism likely Graves Dz Hypoglycemia encephalopathy,resolved Severe protein-calorie malnutrition. DM2, HTN urinary retention, maldonado in place COVID + 05/30 - COVID-19 negative on 05/18/2020 and 05/19/2020. Remdesivir started 06/01 Pneumonia. sputum cx: Resp gerri. Off vanc/Zosyn/doxy. Off Augmentin CHF Severe protein-calorie malnutrition Gram-positive cocci bacteremia, 05/18/2020, 1 out of 2 bottles, ID MICROCOCCUS SPECIES, likely a contaminant. Bradycardia--holding BB for now Lower GI bleed, plan: currently on bipap again. weaning steroids, off abx now. d dimer elevated, but CTA negative for PE.changed lovenox to daily but now GI bleed. continue PPI. hold lovenox . History of Present Illness History of Present Illness lower GI bleed per nurse. hold lovenox. continue PPI. wean steroids if able to but difficult given resp failure. GI consult. HD stable. check h and h Vitals Vitals Vital Signs Date Time Temp Pulse Resp B/P (MAP) Pulse Ox O2 Delivery O2 Flow Rate FiO2 06/11/20 10:00 106 20 110/51 (70) 93 Vapotherm 06/11/20 09:37 40.0 06/11/20 04:00 98.0 98.0 Physical Exam Physical Exam GENERAL: Propped up in bed, alert, calm - appears comfortable HEENT: On BiPAP NECK: Supple. LUNGS: CTA HEART: S1, S2. regular ABDOMEN: Obese, soft, nontender : Maldonado in place EXTREMITIES: trace edema lower extremities bilaterally. No cyanosis DERMATOLOGIC: Warm, dry. No generalized rash. NEUROLOGIC: Alert, responds appropriately General: Alert, Cooperative, No acute distress Heart: Regular rate, Normal S1, Normal S2, No murmurs Lungs: Clear Abdomen: Normal bowel sounds, Soft, No tenderness, No hepatosplenomegaly Labs LABS Laboratory Tests Test 06/10/20 11:33 06/10/20 17:15 06/10/20 21:22 06/11/20 08:39 Glucose (Fingerstick) 312 mg/dL (70-99) 376 mg/dL (70-99) 290 mg/dL (70-99) 308 mg/dL (70-99) Test 06/11/20 09:15 Hemoglobin 9.2 g/dL (12.0-15.5) Hematocrit 27.8 % (36.0-47.0) Mean Corpuscular Hemoglobin Concent 33 g/dL (31-37) Assessment and Plan Assessmemt and Plan Problems Medical Problems: (1) Altered mental status Status: Acute (2) Hypoglycemia Status: Acute (3) Hypothermia Status: Acute Comment Review of Relevant I have reviewed the following items kavya (where applicable) has been applied. Labs Laboratory Tests Test 06/09/20 12:54 06/09/20 13:20 06/09/20 17:36 06/09/20 21:17 Glucose (Fingerstick) 409 mg/dL (70-99) 435 mg/dL (70-99) 327 mg/dL (70-99) White Blood Count 16.7 x10^3/uL (4.0-11.0) Red Blood Count 3.38 x10^6/uL (3.50-5.40) Hemoglobin 9.2 g/dL (12.0-15.5) Hematocrit 28.7 % (36.0-47.0) Mean Corpuscular Volume 85 fL (79-100) Mean Corpuscular Hemoglobin 27 pg (25-35) Mean Corpuscular Hemoglobin Concent 32 g/dL (31-37) Red Cell Distribution Width 18.7 % (11.5-14.5) Platelet Count 227 x10^3/uL (140-400) Neutrophils (%) (Auto) 96 % (31-73) Lymphocytes (%) (Auto) 2 % (24-48) Monocytes (%) (Auto) 2 % (0-9) Eosinophils (%) (Auto) 0 % (0-3) Basophils (%) (Auto) 0 % (0-3) Neutrophils # (Auto) 16.0 x10^3/uL (1.8-7.7) Lymphocytes # (Auto) 0.3 x10^3/uL (1.0-4.8) Monocytes # (Auto) 0.3 x10^3/uL (0.0-1.1) Eosinophils # (Auto) 0.0 x10^3/uL (0.0-0.7) Basophils # (Auto) 0.0 x10^3/uL (0.0-0.2) Sodium Level 140 mmol/L (136-145) Potassium Level 3.8 mmol/L (3.5-5.1) Chloride Level 104 mmol/L (98-107) Carbon Dioxide Level 31 mmol/L (21-32) Anion Gap 5 (6-14) Blood Urea Nitrogen 36 mg/dL (7-20) Creatinine 0.9 mg/dL (0.6-1.0) Estimated GFR (Cockcroft-Gault) 62.3 Glucose Level 434 mg/dL (70-99) Calcium Level 7.5 mg/dL (8.5-10.1) Test 06/10/20 04:35 06/10/20 08:22 06/10/20 11:33 06/10/20 17:15 White Blood Count 19.2 x10^3/uL (4.0-11.0) Red Blood Count 3.32 x10^6/uL (3.50-5.40) Hemoglobin 9.1 g/dL (12.0-15.5) Hematocrit 28.0 % (36.0-47.0) Mean Corpuscular Volume 85 fL (79-100) Mean Corpuscular Hemoglobin 28 pg (25-35) Mean Corpuscular Hemoglobin Concent 33 g/dL (31-37) Red Cell Distribution Width 18.8 % (11.5-14.5) Platelet Count 224 x10^3/uL (140-400) Neutrophils (%) (Auto) 95 % (31-73) Lymphocytes (%) (Auto) 2 % (24-48) Monocytes (%) (Auto) 3 % (0-9) Eosinophils (%) (Auto) 0 % (0-3) Basophils (%) (Auto) 0 % (0-3) Neutrophils # (Auto) 18.4 x10^3/uL (1.8-7.7) Lymphocytes # (Auto) 0.4 x10^3/uL (1.0-4.8) Monocytes # (Auto) 0.5 x10^3/uL (0.0-1.1) Eosinophils # (Auto) 0.0 x10^3/uL (0.0-0.7) Basophils # (Auto) 0.0 x10^3/uL (0.0-0.2) Sodium Level 142 mmol/L (136-145) Potassium Level 3.6 mmol/L (3.5-5.1) Chloride Level 105 mmol/L (98-107) Carbon Dioxide Level 31 mmol/L (21-32) Anion Gap 6 (6-14) Blood Urea Nitrogen 30 mg/dL (7-20) Creatinine 0.8 mg/dL (0.6-1.0) Estimated GFR (Cockcroft-Gault) 71.3 Glucose Level 387 mg/dL (70-99) Calcium Level 7.6 mg/dL (8.5-10.1) Glucose (Fingerstick) 337 mg/dL (70-99) 312 mg/dL (70-99) 376 mg/dL (70-99) Test 06/10/20 21:22 06/11/20 08:39 06/11/20 09:15 Glucose (Fingerstick) 290 mg/dL (70-99) 308 mg/dL (70-99) Hemoglobin 9.2 g/dL (12.0-15.5) Hematocrit 27.8 % (36.0-47.0) Mean Corpuscular Hemoglobin Concent 33 g/dL (31-37) Laboratory Tests Test 06/10/20 11:33 06/10/20 17:15 06/10/20 21:22 06/11/20 08:39 Glucose (Fingerstick) 312 mg/dL (70-99) 376 mg/dL (70-99) 290 mg/dL (70-99) 308 mg/dL (70-99) Test 06/11/20 09:15 Hemoglobin 9.2 g/dL (12.0-15.5) Hematocrit 27.8 % (36.0-47.0) Mean Corpuscular Hemoglobin Concent 33 g/dL (31-37) Microbiology 05/26/20 Gram Stain Evaluation - Final, Complete 05/26/20 Respiratory Culture - Final, Complete 05/24/20 Blood Culture - Final, Complete NO GROWTH AFTER 5 DAYS 05/18/20 Urine Culture - Final, Complete Medications Current Medications Sodium Chloride 1,000 ml @ 1,000 mls/hr 1X ONCE IV Last administered on 05/18/20at 09:29; Start 05/18/20 at 09:15; Stop 05/18/20 at 10:14; Status DC Ceftriaxone Sodium (Rocephin) 1 gm 1X ONCE IVP Last administered on 05/18/20at 09:28; Start 05/18/20 at 09:15; Stop 05/18/20 at 09:16; Status DC Ondansetron HCl (Zofran) 4 mg PRN Q8HRS PRN IV NAUSEA/VOMITING; Start 05/18/20 at 10:15; Stop 05/18/20 at 16:24; Status DC Acetaminophen (Tylenol) 650 mg PRN Q4HRS PRN PO FEVER > 100.3'F; Start 05/18/20 at 10:15; Stop 05/18/20 at 16:24; Status DC Ceftriaxone Sodium (Rocephin) 1 gm Q24H IVP Last administered on 05/24/20at 09:09; Start 05/19/20 at 09:00; Stop 05/24/20 at 18:10; Status DC Sodium Chloride (Normal Saline Flush) 3 ml QSHIFT PRN IV AFTER MEDS AND BLOOD DRAWS; Start 05/18/20 at 16:30 Sodium Chloride 1,000 ml @ 85 mls/hr [id number] IV Last administered on 05/24/20at 18:31; Start 05/18/20 at 16:20; Stop 05/25/20 at 09:44; Status DC Ondansetron HCl (Zofran) 4 mg PRN Q4HRS PRN IV NAUSEA/VOMITING; Start 05/18/20 at 16:30 Acetaminophen (Tylenol) 650 mg PRN Q4HRS PRN PO TEMP OVER 100.4F OR MILD PAIN Last administered on 06/10/20at 12:33; Start 05/18/20 at 16:30 Acetaminophen (Tylenol Supp) 650 mg PRN Q4HRS PRN HI TEMP OVER 100.4F OR MILD PAIN; Start 05/18/20 at 16:30 Sodium Monofluorophosphate (Fleet Adult) 133 ml PRN DAILY PRN HI CONSTIPATION; Start 05/18/20 at 16:30 Docusate Sodium (Colace) 100 mg PRN BID PRN PO HARD STOOLS Last administered on 06/10/20at 22:32; Start 05/18/20 at 16:30 Albuterol Sulfate (Ventolin Neb Soln) 2.5 mg PRN Q4HRS PRN NEB SHORTNESS OF BREATH Last administered on 05/21/20at 18:14; Start 05/18/20 at 16:30; Stop 05/31/20 at 16:19; Status DC Guaifenesin (Robitussin) 200 mg PRN Q4HRS PRN PO COUGH Last administered on 05/23/20at 20:00; Start 05/18/20 at 16:30 Enoxaparin Sodium (Lovenox 40mg Syringe) 40 mg Q24H SQ Last administered on 05/31/20 17:03; Start 05/18/20 at 17:00; Stop 06/01/20 at 10:27; Status DC Aspirin (Ecotrin) 81 mg DAILY PO Last administered on 06/11/20 08:29; Start 05/19/20 at 09:00 Metoprolol Tartrate (Lopressor) 50 mg BID PO Last administered on 05/21/20at 09:16; Start 05/19/20 at 09:00; Stop 05/21/20 at 15:45; Status DC Diclofenac Sodium (Voltaren) 75 mg BID PO Last administered on 06/03/20 20:29; Start 05/19/20 at 10:00; Stop 06/04/20 at 08:03; Status DC Hydralazine HCl (Apresoline) 100 mg BID PO Last administered on 05/21/20at 09:15; Start 05/19/20 at 09:00; Stop 05/21/20 at 15:45; Status DC Lisinopril (Prinivil) 20 mg DAILY PO Last administered on 05/21/20at 09:16; Start 05/19/20 at 10:00; Stop 05/21/20 at 15:45; Status DC Pantoprazole Sodium (Protonix) 40 mg DAILYAC PO Last administered on 06/11/20 08:29; Start 05/19/20 at 10:00 Atorvastatin Calcium (Lipitor) 40 mg QHS PO Last administered on 06/10/20at 21:10; Start 05/19/20 at 21:00 Hydrochlorothiazide (Hydrodiuril) 25 mg DAILY PO Last administered on 05/23/20at 08:59; Start 05/19/20 at 10:00; Stop 05/23/20 at 10:22; Status DC Lactobacillus Rhamnosus (Culturelle) 1 cap BID PO Last administered on 06/11/20at 08:27; Start 05/19/20 at 21:00 Insulin Human Lispro (HumaLOG) 0-7 UNITS TIDWMEALS SQ Last administered on 06/10/20at 12:35; Start 05/19/20 at 17:00; Stop 06/10/20 at 17:33; Status DC Dextrose (Dextrose 50%-Water Syringe) 12.5 gm PRN Q15MIN PRN IV SEE COMMENTS Last administered on 06/04/20at 06:52; Start 05/19/20 at 14:15 Methimazole (Tapazole) 5 mg BID PO Last administered on 06/11/20at 08:29; Start 05/20/20 at 10:00 Insulin Glargine (Lantus Syringe) 5 unit DAILY SQ Last administered on 05/22/20at 09:15; Start 05/21/20 at 09:00; Stop 05/22/20 at 21:05; Status DC Doxycycline Hyclate (Vibra-Tab) 100 mg BID PO Last administered on 05/28/20at 08:53; Start 05/21/20 at 15:00; Stop 05/28/20 at 15:02; Status DC Furosemide (Lasix) 20 mg 1X ONCE IVP Last administered on 05/21/20at 17:05; Start 05/21/20 at 17:00; Stop 05/21/20 at 17:01; Status DC Sterile Water (WATER for RESP) 1,000 ml CONT PRN INH VIA VAPOTHERM DEVICE Last administered on 05/23/20at 16:26; Start 05/21/20 at 17:15; Stop 05/30/20 at 12:58; Status DC Albuterol Sulfate (Ventolin Neb Soln) 2.5 mg Q4HRS NEB Last administered on 05/30/20at 15:45; Start 05/21/20 at 20:00; Stop 05/31/20 at 16:19; Status DC Vancomycin HCl (Vanco Per Pharmacy) 1 each PRN DAILY PRN MC SEE COMMENTS Last administered on 05/25/20at 23:52; Start 05/22/20 at 09:00; Stop 05/27/20 at 16:29; Status DC Vancomycin HCl 2 gm/Sodium Chloride 500 ml @ 250 mls/hr 1X ONCE IV Last administered on 05/22/20at 09:05; Start 05/22/20 at 09:00; Stop 05/22/20 at 10:59; Status DC Vancomycin HCl 1.25 gm/Sodium Chloride 250 ml @ 167 mls/hr Q24H IV Last administered on 05/23/20at 09:00; Start 05/23/20 at 09:00; Stop 05/24/20 at 10:05; Status DC Vancomycin HCl (Vancomycin Trough Level) 1 each 1X ONCE MC Last administered on 05/24/20at 08:30; Start 05/24/20 at 08:30; Stop 05/24/20 at 08:31; Status DC Methylprednisolone Sodium Succinate (SOLU-Medrol 125MG VIAL) 80 mg Q8HRS IV Last administered on 05/27/20at 06:04; Start 05/22/20 at 14:00; Stop 05/27/20 at 12:02; Status DC Insulin Glargine (Lantus Syringe) 10 unit BID SQ Last administered on 05/23/20at 09:11; Start 05/22/20 at 21:00; Stop 05/23/20 at 20:17; Status DC Metoprolol Tartrate (Lopressor) 50 mg BID PO Last administered on 06/08/20at 08:23; Start 05/23/20 at 10:30; Stop 06/08/20 at 10:43; Status DC Hydrochlorothiazide (Microzide) 12.5 mg DAILY PO Last administered on 06/11/20 08:29; Start 05/24/20 at 09:00 Potassium Chloride (Klor-Con) 40 meq Q2H PO Last administered on 05/23/20at 14:58; Start 05/23/20 at 10:30; Stop 05/23/20 at 14:31; Status DC Lisinopril (Prinivil) 40 mg DAILY PO Last administered on 06/11/20at 08:28; Start 05/23/20 at 10:30 Hydralazine HCl (Apresoline) 100 mg BID PO Last administered on 06/11/20at 08:29; Start 05/23/20 at 10:30 Insulin Glargine (Lantus Syringe) 10 unit BID SQ Last administered on 05/24/20at 09:14; Start 05/23/20 at 21:00; Stop 05/24/20 at 11:28; Status DC Vancomycin HCl 1.25 gm/Sodium Chloride 250 ml @ 167 mls/hr Q12H IV Last administered on 05/27/20at 08:21; Start 05/24/20 at 10:30; Stop 05/27/20 at 16:26; Status DC Vancomycin HCl (Vancomycin Trough Level) 1 each 1X ONCE MC Last administered on 05/25/20at 22:00; Start 05/25/20 at 22:00; Stop 05/25/20 at 22:01; Status DC Insulin Glargine (Lantus Syringe) 12 unit BID SQ ; Start 05/24/20 at 21:00; Stop 05/24/20 at 17:27; Status DC Insulin Glargine (Lantus Syringe) 15 unit BID SQ Last administered on 05/25/20at 08:19; Start 05/24/20 at 21:00; Stop 05/25/20 at 09:47; Status DC Insulin Human Lispro (HumaLOG) 7 units 1X ONCE SQ Last administered on 05/24/20at 18:01; Start 05/24/20 at 17:30; Stop 05/24/20 at 17:31; Status DC Piperacillin Sod/ Tazobactam Sod 3.375 gm/Sodium Chloride 50 ml @ 100 mls/hr Q6HRS IV Last administered on 05/28/20at 12:09; Start 05/24/20 at 18:30; Stop 05/28/20 at 15:01; Status DC Insulin Human Lispro (HumaLOG) 11 units 1X SQ ; Start 05/24/20 at 21:30; Status Cancel Insulin Human Lispro (HumaLOG) 11 units 1X ONCE SQ Last administered on 05/24/20at 22:25; Start 05/24/20 at 22:00; Stop 05/24/20 at 22:01; Status DC Furosemide (Lasix) 20 mg 1X ONCE IVP Last administered on 05/25/20at 11:12; Start 05/25/20 at 10:00; Stop 05/25/20 at 10:01; Status DC Insulin Glargine (Lantus Syringe) 18 unit BID SQ Last administered on 05/27/20at 08:33; Start 05/25/20 at 21:00; Stop 05/27/20 at 12:00; Status DC Midazolam HCl (Versed) 2 mg 1X ONCE IV ; Start 05/25/20 at 10:30; Stop 05/25/20 at 10:31; Status Cancel Fentanyl Citrate (Fentanyl 2ml Vial) 50 mcg 1X ONCE IM ; Start 05/25/20 at 10:30; Stop 05/25/20 at 10:31; Status Cancel Hydralazine HCl (Apresoline Inj) 10 mg PRN Q4HRS PRN IVP ELEVATED BP, SEE COMMENTS Last administered on 06/10/20at 01:08; Start 05/25/20 at 16:15 Potassium Chloride (Klor-Con) 40 meq 1X ONCE PO Last administered on 05/26/20at 18:43; Start 05/26/20 at 18:30; Stop 05/26/20 at 18:31; Status DC Insulin Glargine (Lantus Syringe) 22 unit BID SQ Last administered on 05/29/20at 08:24; Start 05/27/20 at 21:00; Stop 05/29/20 at 12:14; Status DC Methylprednisolone Sodium Succinate (SOLU-Medrol 125MG VIAL) 40 mg Q12HR IV Last administered on 05/28/20at 08:52; Start 05/27/20 at 19:00; Stop 05/28/20 at 13:37; Status DC Nystatin (Nystatin Oral Susp) 5 ml [id number] Last administered on 06/11/20at 08:35; Start 05/27/20 at 17:00 Insulin Human Lispro (HumaLOG) 20 units 1X ONCE SQ Last administered on 05/27/20at 17:32; Start 05/27/20 at 17:30; Stop 05/27/20 at 17:31; Status DC Methylprednisolone Sodium Succinate (SOLU-Medrol 40MG VIAL) 40 mg Q12HR IV Last administered on 05/30/20at 08:34; Start 05/28/20 at 21:00; Stop 05/30/20 at 14:10; Status DC Amoxicillin/ Clavulanate Potassium (Augmentin 875/ 125mg) 1 tab BID PO Last administered on 05/31/20at 19:53; Start 05/28/20 at 21:00; Stop 05/31/20 at 21:01; Status DC Amlodipine Besylate (Norvasc) 2.5 mg DAILY PO Last administered on 06/09/20 08:40; Start 05/29/20 at 11:45; Stop 06/10/20 at 02:44; Status DC Furosemide (Lasix) 20 mg 1X ONCE PO Last administered on 05/29/20at 12:40; Start 05/29/20 at 12:30; Stop 05/29/20 at 12:31; Status DC Potassium Chloride (Klor-Con) 20 meq 1X ONCE PO Last administered on 05/29/20at 12:40; Start 05/29/20 at 12:30; Stop 05/29/20 at 12:31; Status DC Insulin Glargine (Lantus Syringe) 25 unit BID SQ Last administered on 06/04/20at 07:58; Start 05/29/20 at 21:00; Stop 06/04/20 at 09:20; Status DC Furosemide (Lasix) 40 mg 1X ONCE IVP Last administered on 05/30/20at 11:47; Start 05/30/20 at 11:15; Stop 05/30/20 at 11:16; Status DC Iohexol (Omnipaque 350 Mg/ml) 100 ml 1X ONCE IV Last administered on 05/30/20at 12:00; Start 05/30/20 at 12:00; Stop 05/30/20 at 12:01; Status DC Info (CONTRAST GIVEN -- Rx MONITORING) 1 each PRN DAILY PRN MC SEE COMMENTS; Start 05/30/20 at 12:15; Stop 06/01/20 at 12:14; Status DC Sterile Water (WATER for RESP) 1,000 ml CONT PRN INH VIA VAPOTHERM DEVICE Last administered on 06/10/20at 18:28; Start 05/30/20 at 13:00 Methylprednisolone Sodium Succinate (SOLU-Medrol 125MG VIAL) 125 mg Q12HR IV Last administered on 06/09/20at 08:41; Start 05/30/20 at 14:15; Stop 06/09/20 at 13:11; Status DC Enoxaparin Sodium (Lovenox 40mg Syringe) 40 mg BID SQ Last administered on 06/10/20at 08:15; Start 06/01/20 at 21:00; Stop 06/10/20 at 13:46; Status DC Non-Formulary Medication 1 ea/ Sodium Chloride 210 ml @ 210 mls/hr 1X ONCE IV Last administered on 06/01/20at 17:11; Start 06/01/20 at 16:30; Stop 06/01/20 at 17:29; Status DC Non-Formulary Medication 1 ea/ Sodium Chloride 230 ml @ 460 mls/hr DAILY IV Last administered on 06/05/20at 17:38; Start 06/02/20 at 09:00; Stop 06/05/20 at 09:29; Status DC Potassium Chloride (Klor-Con) 40 meq 1X ONCE PO Last administered on 06/03/20at 09:51; Start 06/03/20 at 08:00; Stop 06/03/20 at 08:01; Status DC Diclofenac Sodium (Voltaren) 75 mg BID PO ; Start 06/04/20 at 08:03; Stop 06/04/20 at 08:04; Status DC Diclofenac Sodium (Voltaren) 75 mg BID PO Last administered on 06/10/20at 21:15; Start 06/04/20 at 09:00 Insulin Glargine (Lantus Syringe) 30 unit QHS SQ Last administered on 06/04/20at 21:14; Start 06/04/20 at 21:00; Stop 06/05/20 at 10:25; Status DC Insulin Glargine (Lantus Syringe) 15 unit QHS SQ Last administered on 06/09/20at 21:29; Start 06/05/20 at 21:00; Stop 06/10/20 at 13:46; Status DC Furosemide (Lasix) 40 mg 1X ONCE IVP Last administered on 06/08/20at 11:14; Start 06/08/20 at 11:00; Stop 06/08/20 at 11:02; Status DC Methylprednisolone Sodium Succinate (SOLU-Medrol 125MG VIAL) 60 mg BID IV Last administered on 06/11/20at 08:29; Start 06/09/20 at 21:00 Amlodipine Besylate (Norvasc) 10 mg 1X ONCE PO Last administered on 06/10/20at 03:16; Start 06/10/20 at 03:00; Stop 06/10/20 at 03:01; Status DC Amlodipine Besylate (Norvasc) 10 mg DAILY PO Last administered on 06/11/20at 08:29; Start 06/10/20 at 09:00 Hydralazine HCl (Apresoline Inj) 10 mg 1X ONCE IVP Last administered on 06/10/20at 03:16; Start 06/10/20 at 03:00; Stop 06/10/20 at 03:01; Status DC Enoxaparin Sodium (Lovenox 40mg Syringe) 40 mg DAILY SQ Last administered on 06/11/20at 08:28; Start 06/11/20 at 09:00; Stop 06/11/20 at 09:09; Status DC Insulin Glargine (Lantus Syringe) 20 unit QHS SQ Last administered on 06/10/20at 21:35; Start 06/10/20 at 13:45 Insulin Human Lispro (HumaLOG) 0-9 UNITS TIDWMEALS SQ Last administered on 06/11/20at 09:04; Start 06/10/20 at 17:40; Stop 06/11/20 at 08:00; Status DC Active Scripts Active Reported Actos (Pioglitazone Hcl) 45 Mg Tablet 1 Tab PO DAILY 30 Days Diclofenac Sodium 75 Mg Tablet.dr 1 Tab PO BID Klor-Con 10 (Potassium Chloride) 10 Meq Tablet.er 1 Tab PO DAILY 30 Days Metformin Hcl 1,000 Mg Tablet 1,000 Mg PO BIDWMEALS Omeprazole 20 Mg Capsule.dr 1 Cap PO DAILY Lisinopril-Hctz 20-25 Mg Tab (Lisinopril/Hydrochlorothiazide) 1 Each Tablet 1 Tab PO DAILY Aspirin Ec (Aspirin) 81 Mg Tablet. 1 Tab PO DAILY Hydralazine Hcl 100 Mg Tablet 1 Tab PO BID Metoprolol Tartrate 50 Mg Tablet 1 Tab PO BID Rosuvastatin Calcium 10 Mg Tablet 10 Mg PO DAILY Vitals/I & O Vital Sign - Last 24 Hours 06/10/20 06/10/20 06/10/20 06/10/20 11:07 11:45 11:46 12:10 Temp 98.8 98.8 Pulse 75 Resp 26 B/P (MAP) 148/63 (91) Pulse Ox 96 93 O2 Delivery VAPOTHERM vapothern O2 Flow Rate 40.0 40.0 40.0 06/10/20 06/10/20 06/10/20 06/10/20 13:04 14:08 15:14 15:50 Pulse 97 94 75 Resp 30 23 29 B/P (MAP) 130/60 (83) 145/65 (91) 156/68 (97) Pulse Ox 93 95 97 95 O2 Delivery vapothern vapotherm VAPOTHERM O2 Flow Rate 40.0 06/10/20 06/10/20 06/10/20 06/10/20 16:09 17:00 18:00 19:00 Temp 97.8 97.9 97.8 97.9 Pulse 71 70 76 74 Resp 26 35 35 26 B/P (MAP) 160/57 (91) 154/71 (98) 145/76 (99) 144/66 (92) Pulse Ox 96 96 93 93 O2 Delivery vapotherm vapotherm vapotherm O2 Flow Rate 06/10/20 06/10/20 06/10/20 06/10/20 19:44 20:00 21:00 21:11 Pulse 76 94 70 Resp 30 51 B/P (MAP) 140/69 (92) 134/68 (90) 134/68 Pulse Ox 92 95 91 O2 Delivery VAPOTHERM vapotherm vapotherm O2 Flow Rate 40.0 06/10/20 06/10/20 06/11/20 06/11/20 22:00 23:00 00:00 00:00 Temp 98.0 98.0 Pulse 74 66 68 Resp 45 28 29 B/P (MAP) 135/59 (84) 134/58 (83) 145/64 (91) Pulse Ox 94 90 91 O2 Delivery vapotherm vapotherm vapotherm Bi-pap 06/11/20 06/11/20 06/11/20 06/11/20 00:29 01:00 02:00 03:00 Pulse 68 68 64 Resp 28 24 23 B/P (MAP) 139/60 (86) 135/60 (85) 132/57 (82) Pulse Ox 90 93 96 96 O2 Delivery [id number] BiPAP/CPAP BiPAP/CPAP BiPAP/CPAP 06/11/20 06/11/20 06/11/20 06/11/20 04:00 04:00 04:49 05:00 Temp 98.0 98.0 Pulse 62 62 Resp 24 22 B/P (MAP) 144/64 (90) 147/63 (91) Pulse Ox 94 95 96 O2 Delivery Bi-pap BiPAP/CPAP [id number] BiPAP/CPAP 06/11/20 06/11/20 06/11/20 06/11/20 06:00 07:00 08:00 08:00 Pulse 68 66 66 Resp 32 20 20 B/P (MAP) 146/68 (94) 151/71 (97) 154/61 (92) Pulse Ox 96 96 96 O2 Delivery BiPAP/CPAP BiPAP/CPAP Vapotherm O2 Flow Rate 40.0 06/11/20 06/11/20 06/11/20 06/11/20 08:00 08:28 08:29 08:29 Pulse 80 80 80 B/P (MAP) 148/65 148/65 148/65 O2 Flow Rate 40.0 06/11/20 06/11/20 06/11/20 09:00 09:37 10:00 Pulse 90 106 Resp 20 20 B/P (MAP) 141/68 (92) 110/51 (70) Pulse Ox 94 92 93 O2 Delivery Vapotherm VAPOTHERM Vapotherm O2 Flow Rate 40.0 Intake and Output 06/10/20 06/10/20 06/11/20 15:00 23:00 07:00 Intake Total 360 ml 480 ml Output Total 1425 ml 725 ml Balance 360 ml -945 ml -725 ml Justicifation of Admission Dx: Justifications for Admission: Justification of Admission Dx: Yes Altered Mental Status: Altered Mental Status SUYAPA MCCORMICK MD Jun 11, 2020 11:05
--- NOTE | 2020-06-11 11:11 | PDOC2 ---
GI CONSULT Reason For Consult: GI bleed HPI: HPI: 70 y/o Pakistani-speaking female here since last month. Resp failure, +COVID-19. Today nurse reports clots of bright red blood in stool, also has abdominal pain. Eating a little. On PO PPI. Hgb stable, BUN has been elevated. Summary list includes omeprazole, diclofenac, ASA. PMH: PMH: HTN, DM FH: Family History: DM Social History: Smoke: No ALCOHOL: none Drugs: None ROS: Weak, SOA, abd pain. Vitals: Vitals: Vital Signs Date Time Temp Pulse Resp B/P (MAP) Pulse Ox O2 Delivery O2 Flow Rate FiO2 06/11/20 10:00 106 20 110/51 (70) 93 Vapotherm 06/11/20 09:37 40.0 06/11/20 04:00 98.0 98.0 Labs: Labs: Laboratory Tests Test 06/10/20 11:33 06/10/20 17:15 06/10/20 21:22 06/11/20 08:39 Glucose (Fingerstick) 312 mg/dL (70-99) 376 mg/dL (70-99) 290 mg/dL (70-99) 308 mg/dL (70-99) Test 06/11/20 09:15 Hemoglobin 9.2 g/dL (12.0-15.5) Hematocrit 27.8 % (36.0-47.0) Mean Corpuscular Hemoglobin Concent 33 g/dL (31-37) Allergies: Coded Allergies: No Known Drug Allergies (Unverified , 04/09/18) Medications: Current Medications Medications (Trade) Dose Ordered Sig/Nini Route PRN Reason Start Time Stop Time Status Last Admin Dose Admin Enoxaparin Sodium (Lovenox 40mg Syringe) 40 mg DAILY SQ 06/11/20 09:00 06/11/20 09:09 DC 06/11/20 08:28 Insulin Glargine (Lantus Syringe) 20 unit QHS SQ 06/10/20 13:45 06/10/20 21:35 Insulin Human Lispro (HumaLOG) 0-9 UNITS TIDWMEALS SQ 06/10/20 17:40 06/11/20 08:00 DC 06/11/20 09:04 Imaging: Imaging: CXR 06/10 FINDINGS/IMPRESSION: The heart is not enlarged. Aorta is tortuous. Bilateral perihilar and lung bas patchy e airspace opacities are seen with interstitial prominence may represent changes of pulmonary edema or infectious or inflammatory process. Small bilateral pleural effusions. No pneumothorax. Imaging follow-up to resolution is recommended. Many other CXRs, chest CT, thyroid US reviewed. PE: GEN: ill in COVID isolation HEENT: Atraumatic, PERRL LUNGS: diminished, vapotherm HEART: tachycardic ABD: quiet, tender EXTREMITY: No edema SKIN: No rashes, no jaundice NEURO/PSYCH: A & O, speaks Pakistani A/P: A/P: COVID-19 resp failure Hematochezia Anemia - stable -- Seen w/ Dr. Swann. Check lactic acid - d/w nurse. If elevated, consider additional imaging/surgery opinion. Continue PPI. JANE SINGLETARY Jun 11, 2020 11:11
--- NOTE | 2020-06-11 12:11 | NUR ---
Patient was observed have rectal bleed this shift. MD Janet notified new orders received. MD Shree consulted ordered lactic acid, results 4.7. New orders received for CTA and NPO. MD Janet notified of NPO status. No new orders received for fluids at this time. Will continue to monitor.
[2020-06-11] MEDS ORDERED: CONTRAST GIVEN. MC PRN (13:15)
[2020-06-11] MEDS ORDERED: IOHEXOL 300 MG/ML 100ML VIAL. IV ONE (13:15)
--- NOTE | 2020-06-11 13:28 | PDOC2 ---
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 Covid + with respiratory failure, has been in hospital for over a month Acute onset today of abdominal pain and rectal bleeding no n/v lactic acid was 4.7 Past Medical History Cardiovascular: HTN Endocrine: Diabetes Past Surgical History Past Surgical History: Family History Family History: Hypertension Social History No ALCOHOL: none Drugs: None Current Problem List Problem List Problems Medical Problems: (1) Altered mental status Status: Acute (2) Hypoglycemia Status: Acute (3) Hypothermia Status: Acute Current Medications Current Medications Current Medications Sodium Chloride 1,000 ml @ 1,000 mls/hr 1X ONCE IV Last administered on 05/18/20at 09:29; Start 05/18/20 at 09:15; Stop 05/18/20 at 10:14; Status DC Ceftriaxone Sodium (Rocephin) 1 gm 1X ONCE IVP Last administered on 05/18/20at 09:28; Start 05/18/20 at 09:15; Stop 05/18/20 at 09:16; Status DC Ondansetron HCl (Zofran) 4 mg PRN Q8HRS PRN IV NAUSEA/VOMITING; Start 05/18/20 at 10:15; Stop 05/18/20 at 16:24; Status DC Acetaminophen (Tylenol) 650 mg PRN Q4HRS PRN PO FEVER > 100.3'F; Start 05/18/20 at 10:15; Stop 05/18/20 at 16:24; Status DC Ceftriaxone Sodium (Rocephin) 1 gm Q24H IVP Last administered on 05/24/20at 09:09; Start 05/19/20 at 09:00; Stop 05/24/20 at 18:10; Status DC Sodium Chloride (Normal Saline Flush) 3 ml QSHIFT PRN IV AFTER MEDS AND BLOOD DRAWS; Start 05/18/20 at 16:30 Sodium Chloride 1,000 ml @ 85 mls/hr [id number] IV Last administered on 05/24/20at 18:31; Start 05/18/20 at 16:20; Stop 05/25/20 at 09:44; Status DC Ondansetron HCl (Zofran) 4 mg PRN Q4HRS PRN IV NAUSEA/VOMITING; Start 05/18/20 at 16:30 Acetaminophen (Tylenol) 650 mg PRN Q4HRS PRN PO TEMP OVER 100.4F OR MILD PAIN Last administered on 06/10/20at 12:33; Start 05/18/20 at 16:30 Acetaminophen (Tylenol Supp) 650 mg PRN Q4HRS PRN NC TEMP OVER 100.4F OR MILD PAIN; Start 05/18/20 at 16:30 Sodium Monofluorophosphate (Fleet Adult) 133 ml PRN DAILY PRN NC CONSTIPATION; Start 05/18/20 at 16:30 Docusate Sodium (Colace) 100 mg PRN BID PRN PO HARD STOOLS Last administered on 06/10/20at 22:32; Start 05/18/20 at 16:30 Albuterol Sulfate (Ventolin Neb Soln) 2.5 mg PRN Q4HRS PRN NEB SHORTNESS OF BREATH Last administered on 05/21/20at 18:14; Start 05/18/20 at 16:30; Stop 05/31/20 at 16:19; Status DC Guaifenesin (Robitussin) 200 mg PRN Q4HRS PRN PO COUGH Last administered on 05/23/20at 20:00; Start 05/18/20 at 16:30 Enoxaparin Sodium (Lovenox 40mg Syringe) 40 mg Q24H SQ Last administered on 05/31/20at 17:03; Start 05/18/20 at 17:00; Stop 06/01/20 at 10:27; Status DC Aspirin (Ecotrin) 81 mg DAILY PO Last administered on 06/11/20at 08:29; Start at 09:00; Stop 06/11/20 at 13:19; Status DC Metoprolol Tartrate (Lopressor) 50 mg BID PO Last administered on 05/21/20at 09:16; Start 05/19/20 at 09:00; Stop 05/21/20 at 15:45; Status DC Diclofenac Sodium (Voltaren) 75 mg BID PO Last administered on 06/03/20 20:29; Start 05/19/20 at 10:00; Stop 06/04/20 at 08:03; Status DC Hydralazine HCl (Apresoline) 100 mg BID PO Last administered on 05/21/20at 09:15; Start 05/19/20 at 09:00; Stop 05/21/20 at 15:45; Status DC Lisinopril (Prinivil) 20 mg DAILY PO Last administered on 05/21/20at 09:16; Start 05/19/20 at 10:00; Stop 05/21/20 at 15:45; Status DC Pantoprazole Sodium (Protonix) 40 mg DAILYAC PO Last administered on 06/11/20 08:29; Start 05/19/20 at 10:00; Stop 06/11/20 at 11:58; Status DC Atorvastatin Calcium (Lipitor) 40 mg QHS PO Last administered on 06/10/20at 21:10; Start 05/19/20 at 21:00 Hydrochlorothiazide (Hydrodiuril) 25 mg DAILY PO Last administered on 05/23/20at 08:59; Start 05/19/20 at 10:00; Stop 05/23/20 at 10:22; Status DC Lactobacillus Rhamnosus (Culturelle) 1 cap BID PO Last administered on 06/11/20 08:27; Start 05/19/20 at 21:00 Insulin Human Lispro (HumaLOG) 0-7 UNITS TIDWMEALS SQ Last administered on 06/10/20at 12:35; Start 05/19/20 at 17:00; Stop 06/10/20 at 17:33; Status DC Dextrose (Dextrose 50%-Water Syringe) 12.5 gm PRN Q15MIN PRN IV SEE COMMENTS Last administered on 06/04/20at 06:52; Start 05/19/20 at 14:15 Methimazole (Tapazole) 5 mg BID PO Last administered on 06/11/20 08:29; Start 05/20/20 at 10:00 Insulin Glargine (Lantus Syringe) 5 unit DAILY SQ Last administered on 05/22/20at 09:15; Start 05/21/20 at 09:00; Stop 05/22/20 at 21:05; Status DC Doxycycline Hyclate (Vibra-Tab) 100 mg BID PO Last administered on 05/28/20 08:53; Start 05/21/20 at 15:00; Stop 05/28/20 at 15:02; Status DC Furosemide (Lasix) 20 mg 1X ONCE IVP Last administered on 05/21/20at 17:05; Start 05/21/20 at 17:00; Stop 05/21/20 at 17:01; Status DC Sterile Water (WATER for RESP) 1,000 ml CONT PRN INH VIA VAPOTHERM DEVICE Last administered on 05/23/20at 16:26; Start 05/21/20 at 17:15; Stop 05/30/20 at 12:58; Status DC Albuterol Sulfate (Ventolin Neb Soln) 2.5 mg Q4HRS NEB Last administered on 05/30/20at 15:45; Start 05/21/20 at 20:00; Stop 05/31/20 at 16:19; Status DC Vancomycin HCl (Vanco Per Pharmacy) 1 each PRN DAILY PRN MC SEE COMMENTS Last administered on 05/25/20at 23:52; Start 05/22/20 at 09:00; Stop 05/27/20 at 16:29; Status DC Vancomycin HCl 2 gm/Sodium Chloride 500 ml @ 250 mls/hr 1X ONCE IV Last administered on 05/22/20at 09:05; Start 05/22/20 at 09:00; Stop 05/22/20 at 10:59; Status DC Vancomycin HCl 1.25 gm/Sodium Chloride 250 ml @ 167 mls/hr Q24H IV Last ad ministered on 05/23/20at 09:00; Start 05/23/20 at 09:00; Stop 05/24/20 at 10:05; Status DC Vancomycin HCl (Vancomycin Trough Level) 1 each 1X ONCE MC Last administered on 05/24/20at 08:30; Start 05/24/20 at 08:30; Stop 05/24/20 at 08:31; Status DC Methylprednisolone Sodium Succinate (SOLU-Medrol 125MG VIAL) 80 mg Q8HRS IV Last administered on 05/27/20at 06:04; Start 05/22/20 at 14:00; Stop 05/27/20 at 12:02; Status DC Insulin Glargine (Lantus Syringe) 10 unit BID SQ Last administered on 05/23/20at 09:11; Start 05/22/20 at 21:00; Stop 05/23/20 at 20:17; Status DC Metoprolol Tartrate (Lopressor) 50 mg BID PO Last administered on 06/08/20at 08:23; Start 05/23/20 at 10:30; Stop 06/08/20 at 10:43; Status DC Hydrochlorothiazide (Microzide) 12.5 mg DAILY PO Last administered on 06/11/20at 08:29; Start 05/24/20 at 09:00 Potassium Chloride (Klor-Con) 40 meq Q2H PO Last administered on 05/23/20at 14:58; Start 05/23/20 at 10:30; Stop 05/23/20 at 14:31; Status DC Lisinopril (Prinivil) 40 mg DAILY PO Last administered on 06/11/20at 08:28; Start 05/23/20 at 10:30 Hydralazine HCl (Apresoline) 100 mg BID PO Last administered on 06/11/20at 08:29; Start 05/23/20 at 10:30 Insulin Glargine (Lantus Syringe) 10 unit BID SQ Last administered on 05/24/20at 09:14; Start 05/23/20 at 21:00; Stop 05/24/20 at 11:28; Status DC Vancomycin HCl 1.25 gm/Sodium Chloride 250 ml @ 167 mls/hr Q12H IV Last administered on 05/27/20at 08:21; Start 05/24/20 at 10:30; Stop 05/27/20 at 16:26; Status DC Vancomycin HCl (Vancomycin Trough Level) 1 each 1X ONCE MC Last administered on 05/25/20at 22:00; Start 05/25/20 at 22:00; Stop 05/25/20 at 22:01; Status DC Insulin Glargine (Lantus Syringe) 12 unit BID SQ ; Start 05/24/20 at 21:00; Stop 05/24/20 at 17:27; Status DC Insulin Glargine (Lantus Syringe) 15 unit BID SQ Last administered on 05/25/20at 08:19; Start 05/24/20 at 21:00; Stop 05/25/20 at 09:47; Status DC Insulin Human Lispro (HumaLOG) 7 units 1X ONCE SQ Last administered on 05/24/20at 18:01; Start 05/24/20 at 17:30; Stop 05/24/20 at 17:31; Status DC Piperacillin Sod/ Tazobactam Sod 3.375 gm/Sodium Chloride 50 ml @ 100 mls/hr Q6HRS IV Last administered on 05/28/20at 12:09; Start 05/24/20 at 18:30; Stop 05/28/20 at 15:01; Status DC Insulin Human Lispro (HumaLOG) 11 units 1X SQ ; Start 05/24/20 at 21:30; Status Cancel Insulin Human Lispro (HumaLOG) 11 units 1X ONCE SQ Last administered on 05/24/20at 22:25; Start 05/24/20 at 22:00; Stop 05/24/20 at 22:01; Status DC Furosemide (Lasix) 20 mg 1X ONCE IVP Last administered on 05/25/20at 11:12; St art 05/25/20 at 10:00; Stop 05/25/20 at 10:01; Status DC Insulin Glargine (Lantus Syringe) 18 unit BID SQ Last administered on 05/27/20at 08:33; Start 05/25/20 at 21:00; Stop 05/27/20 at 12:00; Status DC Midazolam HCl (Versed) 2 mg 1X ONCE IV ; Start 05/25/20 at 10:30; Stop 05/25/20 at 10:31; Status Cancel Fentanyl Citrate (Fentanyl 2ml Vial) 50 mcg 1X ONCE IM ; Start 05/25/20 at 10:30; Stop 05/25/20 at 10:31; Status Cancel Hydralazine HCl (Apresoline Inj) 10 mg PRN Q4HRS PRN IVP ELEVATED BP, SEE COMMENTS Last administered on 06/10/20at 01:08; Start 05/25/20 at 16:15 Potassium Chloride (Klor-Con) 40 meq 1X ONCE PO Last administered on 05/26/20at 18:43; Start 05/26/20 at 18:30; Stop 05/26/20 at 18:31; Status DC Insulin Glargine (Lantus Syringe) 22 unit BID SQ Last administered on 05/29/20at 08:24; Start 05/27/20 at 21:00; Stop 05/29/20 at 12:14; Status DC Methylprednisolone Sodium Succinate (SOLU-Medrol 125MG VIAL) 40 mg Q12HR IV Last administered on 05/28/20at 08:52; Start 05/27/20 at 19:00; Stop 05/28/20 at 13: 37; Status DC Nystatin (Nystatin Oral Susp) 5 ml [id number] Last administered on 06/11/20at 08:35; Start 05/27/20 at 17:00 Insulin Human Lispro (HumaLOG) 20 units 1X ONCE SQ Last administered on 05/27/20at 17:32; Start 05/27/20 at 17:30; Stop 05/27/20 at 17:31; Status DC Methylprednisolone Sodium Succinate (SOLU-Medrol 40MG VIAL) 40 mg Q12HR IV Last administered on 05/30/20at 08:34; Start 05/28/20 at 21:00; Stop 05/30/20 at 14:10; Status DC Amoxicillin/ Clavulanate Potassium (Augmentin 875/ 125mg) 1 tab BID PO Last administered on 05/31/20at 19:53; Start 05/28/20 at 21:00; Stop 05/31/20 at 21:01; Status DC Amlodipine Besylate (Norvasc) 2.5 mg DAILY PO Last administered on 06/09/20at 08:40; Start 05/29/20 at 11:45; Stop 06/10/20 at 02:44; Status DC Furosemide (Lasix) 20 mg 1X ONCE PO Last administered on 05/29/20at 12:40; Start 05/29/20 at 12:30; Stop 05/29/20 at 12:31; Status DC Potassium Chloride (Klor-Con) 20 meq 1X ONCE PO Last administered on 05/29/20at 12:40; Start 05/29/20 at 12:30; Stop 05/29/20 at 12:31; Status DC Insulin Glargine (Lantus Syringe) 25 unit BID SQ Last administered on 06/04/20at 07:58; Start 05/29/20 at 21:00; Stop 06/04/20 at 09:20; Status DC Furosemide (Lasix) 40 mg 1X ONCE IVP Last administered on 05/30/20at 11:47; Start 05/30/20 at 11:15; Stop 05/30/20 at 11:16; Status DC Iohexol (Omnipaque 350 Mg/ml) 100 ml 1X ONCE IV Last administered on 05/30/20at 12:00; Start 05/30/20 at 12:00; Stop 05/30/20 at 12:01; Status DC Info (CONTRAST GIVEN -- Rx MONITORING) 1 each PRN DAILY PRN MC SEE COMMENTS; Start 05/30/20 at 12:15; Stop 06/01/20 at 12:14; Status DC Sterile Water (WATER for RESP) 1,000 ml CONT PRN INH VIA VAPOTHERM DEVICE Last administered on 06/10/20at 18:28; Start 05/30/20 at 13:00 Methylprednisolone Sodium Succinate (SOLU-Medrol 125MG VIAL) 125 mg Q12HR IV Last administered on 06/09/20at 08:41; Start 05/30/20 at 14:15; Stop 06/09/20 at 13:11; Status DC Enoxaparin Sodium (Lovenox 40mg Syringe) 40 mg BID SQ Last administered on 06/10/20at 08:15; Start 06/01/20 at 21:00; Stop 06/10/20 at 13:46; Status DC Non-Formulary Medication 1 ea/ Sodium Chloride 210 ml @ 210 mls/hr 1X ONCE IV Last administered on 06/01/20at 17:11; Start 06/01/20 at 16:30; Stop 06/01/20 at 17:29; Status DC Non-Formulary Medication 1 ea/ Sodium Chloride 230 ml @ 460 mls/hr DAILY IV Last administered on 06/05/20at 17:38; Start 06/02/20 at 09:00; Stop 06/05/20 at 09:29; Status DC Potassium Chloride (Klor-Con) 40 meq 1X ONCE PO Last administered on 06/03/20at 09:51; Start 06/03/20 at 08:00; Stop 06/03/20 at 08:01; Status DC Diclofenac Sodium (Voltaren) 75 mg BID PO ; Start 06/04/20 at 08:03; Stop 06/04/20 at 08:04; Status DC Diclofenac Sodium (Voltaren) 75 mg BID PO Last administered on 06/10/20at 21:15; Start 06/04/20 at 09:00; Stop 06/11/20 at 13:19; Status DC Insulin Glargine (Lantus Syringe) 30 unit QHS SQ Last administered on 06/04/20at 21:14; Start 06/04/20 at 21:00; Stop 06/05/20 at 10:25; Status DC Insulin Glargine (Lantus Syringe) 15 unit QHS SQ Last administered on 06/09/20at 21:29; Start 06/05/20 at 21:00; Stop 06/10/20 at 13:46; Status DC Furosemide (Lasix) 40 mg 1X ONCE IVP Last administered on 06/08/20at 11:14; Start 06/08/20 at 11:00; Stop 06/08/20 at 11:02; Status DC Methylprednisolone Sodium Succinate (SOLU-Medrol 125MG VIAL) 60 mg BID IV Last administered on 06/11/20at 08:29; Start 06/09/20 at 21:00 Amlodipine Besylate (Norvasc) 10 mg 1X ONCE PO Last administered on 06/10/20at 03:16; Start 06/10/20 at 03:00; Stop 06/10/20 at 03:01; Status DC Amlodipine Besylate (Norvasc) 10 mg DAILY PO Last administered on 06/11/20at 08:29; Start 06/10/20 at 09:00 Hydralazine HCl (Apresoline Inj) 10 mg 1X ONCE IVP Last administered on 06/10/20at 03:16; Start 06/10/20 at 03:00; Stop 06/10/20 at 03:01; Status DC Enoxaparin Sodium (Lovenox 40mg Syringe) 40 mg DAILY SQ Last administered on 06/11/20at 08:28; Start 06/11/20 at 09:00; Stop 06/11/20 at 09:09; Status DC Insulin Glargine (Lantus Syringe) 20 unit QHS SQ Last administered on 06/10/20at 21:35; Start 06/10/20 at 13:45 Insulin Human Lispro (HumaLOG) 0-9 UNITS TIDWMEALS SQ Last administered on 06/11/20at 09:04; Start 06/10/20 at 17:40; Stop 06/11/20 at 08:00; Status DC Pantoprazole Sodium (PROTONIX VIAL for IV PUSH) 40 mg DAILYAC IVP ; Start 06/12/20 at 07:30 Insulin Human Lispro (HumaLOG) 0-9 UNITS TIDWMEALS SQ ; Start 06/11/20 at 13:00 Iohexol (Omnipaque 300 Mg/ml) 75 ml 1X ONCE IV ; Start 06/11/20 at 13:15; Stop 06/11/20 at 13:16; Status DC Info (CONTRAST GIVEN -- Rx MONITORING) 1 each PRN DAILY PRN MC SEE COMMENTS; Start 06/11/20 at 13:15; Stop 06/13/20 at 13:14 Active Scripts Active Reported Actos (Pioglitazone Hcl) 45 Mg Tablet 1 Tab PO DAILY 30 Days Diclofenac Sodium 75 Mg Tablet.dr 1 Tab PO BID Klor-Con 10 (Potassium Chloride) 10 Meq Tablet.er 1 Tab PO DAILY 30 Days Metformin Hcl 1,000 Mg Tablet 1,000 Mg PO BIDWMEALS Omeprazole 20 Mg Capsule.dr 1 Cap PO DAILY Lisinopril-Hctz 20-25 Mg Tab (Lisinopril/Hydrochlorothiazide) 1 Each Tablet 1 Tab PO DAILY Aspirin Ec (Aspirin) 81 Mg Tablet.dr 1 Tab PO DAILY Hydralazine Hcl 100 Mg Tablet 1 Tab PO BID Metoprolol Tartrate 50 Mg Tablet 1 Tab PO BID Rosuvastatin Calcium 10 Mg Tablet 10 Mg PO DAILY Allergies Allergies: Coded Allergies: No Known Drug Allergies (Unverified , 04/09/18) ROS General: No: Chills, Other (fevers) PSYCHOLOGICAL ROS: No: Anxiety, Depression Eyes: No Blurry vision, No Double vision HEENT: No: Heacaches, Sore Throat Hematological and Lymphatic: YES: Bleeding Problems; No: Blood Clots Respiratory: YES: Cough, Shortness of breath Cardiovascular: No Chest Pain, No Palpitations Gastrointestinal: Yes Other (see hpi) Genitourinary: No Dysuria, No Hematuria Musculoskeletal: Yes Joint Stiffness, Yes Muscular Weakness Neurological: No Impaired Coord/balance, No Numbness/Tingling Skin: No Pruritus, No Rash Physical Exam General: Alert, Oriented X3, Cooperative, Other (appears acutely ill ) HEENT: Atraumatic, PERRLA Lungs: Other (diminished, requiring 02, bipap at times ) Heart: Other (tachy) Abdomen: Soft, Other (ND, moderate TTP with guarding on exam, midline scar from c section, ecchymosis from lovenox ) Extremities: No clubbing, No cyanosis Neuro: Normal speech, Sensation intact MUSCULOSKELETAL: No deformity, No swelling Vitals VITALS Vital Signs Date Time Temp Pulse Resp B/P (MAP) Pulse Ox O2 Delivery O2 Flow Rate FiO2 06/11/20 12:00 40.0 06/11/20 11:59 95 VAPOTHERM 06/11/20 10:00 106 20 110/51 (70) 06/11/20 04:00 98.0 98.0 Labs Labs Laboratory Tests Test 06/09/20 17:36 06/09/20 21:17 06/10/20 04:35 06/10/20 08:22 Glucose (Fingerstick) 435 mg/dL (70-99) 327 mg/dL (70-99) 337 mg/dL (70-99) White Blood Count 19.2 x10^3/uL (4.0-11.0) Red Blood Count 3.32 x10^6/uL (3.50-5.40) Hemoglobin 9.1 g/dL (12.0-15.5) Hematocrit 28.0 % (36.0-47.0) Mean Corpuscular Volume 85 fL (79-100) Mean Corpuscular Hemoglobin 28 pg (25-35) Mean Corpuscular Hemoglobin Concent 33 g/dL (31-37) Red Cell Distribution Width 18.8 % (11.5-14.5) Platelet Count 224 x10^3/uL (140-400) Neutrophils (%) (Auto) 95 % (31-73) Lymphocytes (%) (Auto) 2 % (24-48) Monocytes (%) (Auto) 3 % (0-9) Eosinophils (%) (Auto) 0 % (0-3) Basophils (%) (Auto) 0 % (0-3) Neutrophils # (Auto) 18.4 x10^3/uL (1.8-7.7) Lymphocytes # (Auto) 0.4 x10^3/uL (1.0-4.8) Monocytes # (Auto) 0.5 x10^3/uL (0.0-1.1) Eosinophils # (Auto) 0.0 x10^3/uL (0.0-0.7) Basophils # (Auto) 0.0 x10^3/uL (0.0-0.2) Sodium Level 142 mmol/L (136-145) Potassium Level 3.6 mmol/L (3.5-5.1) Chloride Level 105 mmol/L (98-107) Carbon Dioxide Level 31 mmol/L (21-32) Anion Gap 6 (6-14) Blood Urea Nitrogen 30 mg/dL (7-20) Creatinine 0.8 mg/dL (0.6-1.0) Estimated GFR (Cockcroft-Gault) 71.3 Glucose Level 387 mg/dL (70-99) Calcium Level 7.6 mg/dL (8.5-10.1) Test 06/10/20 11:33 06/10/20 17:15 06/10/20 21:22 06/11/20 08:39 Glucose (Fingerstick) 312 mg/dL (70-99) 376 mg/dL (70-99) 290 mg/dL (70-99) 308 mg/dL (70-99) Test 06/11/20 09:15 06/11/20 11:00 06/11/20 13:00 Hemoglobin 9.2 g/dL (12.0-15.5) Hematocrit 27.8 % (36.0-47.0) Mean Corpuscular Hemoglobin Concent 33 g/dL (31-37) Lactic Acid Level 4.7 mmol/L (0.4-2.0) Glucose (Fingerstick) 85 mg/dL (70-99) Laboratory Tests Test 06/10/20 17:15 06/10/20 21:22 06/11/20 08:39 06/11/20 09:15 Glucose (Fingerstick) 376 mg/dL (70-99) 290 mg/dL (70-99) 308 mg/dL (70-99) Hemoglobin 9.2 g/dL (12.0-15.5) Hematocrit 27.8 % (36.0-47.0) Mean Corpuscular Hemoglobin Concent 33 g/dL (31-37) Test 06/11/20 11:00 06/11/20 13:00 Lactic Acid Level 4.7 mmol/L (0.4-2.0) Glucose (Fingerstick) 85 mg/dL (70-99) Assessment/Plan Assessment/Plan + covid, resp failure abd pain, lactic acidosis, gi bleed will check CT abd/pelvis KENNEDI CARLSON MD 06/11/20 1721: CONSULT Assessment/Plan Assessment/Plan Reviewed with Ms Hutton; CT completed, rectal impaction, no pneumatosis/free air, no definitive bowel wall thickening; recommend IV abx, enema, serial labs/exam, supportive care MARIEL HUTTON APRN Jun 11, 2020 13:28 KENNEDI CARLSON MD Jun 11, 2020 17:21
--- NOTE | 2020-06-11 14:08 | NUR ---
Patient was taken over to CT for CT of ABD/Pelvis. Patient was placed on non rebreather at 15L and non rebreather at 15L. Patient stats upon arriving to CT were in the 40's patient was taken back to ICU and placed back on Bipap. O2 maintain in 90's once returning to Bipap. Upon looking at the tanks both O2 tanks were empty. [employer] did not check the levels before pulling the tanks from the full tank area, once hooking patient up O2 was flowing the tanks and O2 stats where in the low 90's. Will continue to monitor.
--- NOTE | 2020-06-11 14:17 | NUR ---
SS following up with discharge planning. SS reviewed pt chart and discussed with pt RN. Pt COVID19 positive. Pt on vapotherm and BIPAP. Pt accepted at [facility], ; fax [phone]. SS currently awaiting on insurance authorization from [facility]. Insurance denied authorization and appeal is in process. SS will continue to follow for discharge planning.
--- NOTE | 2020-06-11 15:22 | PDOC ---
PULMONARY PROGRESS NOTES Subjective Patient having some abdominal discomfort seen by GI scheduled to undergo CT abdomen No chest pain no pressure no increasing shortness of breath Vitals Vital Signs Date Time Temp Pulse Resp B/P (MAP) Pulse Ox O2 Delivery O2 Flow Rate FiO2 06/11/20 12:00 40.0 06/11/20 11:59 95 VAPOTHERM 06/11/20 10:00 106 20 110/51 (70) 06/11/20 04:00 98.0 98.0 ROS: No Chest Pain, No Increase Cough General: Alert Lungs: Clear Cardiovascular: S1, S2 Abdomen: Soft Neuro Exam: Alert Extremities: Other (+2 BLE ) Skin: Warm Labs Laboratory Tests Test 06/09/20 17:36 06/09/20 21:17 06/10/20 04:35 06/10/20 08:22 Glucose (Fingerstick) 435 mg/dL (70-99) 327 mg/dL (70-99) 337 mg/dL (70-99) White Blood Count 19.2 x10^3/uL (4.0-11.0) Red Blood Count 3.32 x10^6/uL (3.50-5.40) Hemoglobin 9.1 g/dL (12.0-15.5) Hematocrit 28.0 % (36.0-47.0) Mean Corpuscular Volume 85 fL (79-100) Mean Corpuscular Hemoglobin 28 pg (25-35) Mean Corpuscular Hemoglobin Concent 33 g/dL (31-37) Red Cell Distribution Width 18.8 % (11.5-14.5) Platelet Count 224 x10^3/uL (140-400) Neutrophils (%) (Auto) 95 % (31-73) Lymphocytes (%) (Auto) 2 % (24-48) Monocytes (%) (Auto) 3 % (0-9) Eosinophils (%) (Auto) 0 % (0-3) Basophils (%) (Auto) 0 % (0-3) Neutrophils # (Auto) 18.4 x10^3/uL (1.8-7.7) Lymphocytes # (Auto) 0.4 x10^3/uL (1.0-4.8) Monocytes # (Auto) 0.5 x10^3/uL (0.0-1.1) Eosinophils # (Auto) 0.0 x10^3/uL (0.0-0.7) Basophils # (Auto) 0.0 x10^3/uL (0.0-0.2) Sodium Level 142 mmol/L (136-145) Potassium Level 3.6 mmol/L (3.5-5.1) Chloride Level 105 mmol/L (98-107) Carbon Dioxide Level 31 mmol/L (21-32) Anion Gap 6 (6-14) Blood Urea Nitrogen 30 mg/dL (7-20) Creatinine 0.8 mg/dL (0.6-1.0) Estimated GFR (Cockcroft-Gault) 71.3 Glucose Level 387 mg/dL (70-99) Calcium Level 7.6 mg/dL (8.5-10.1) Test 06/10/20 11:33 06/10/20 17:15 06/10/20 21:22 06/11/20 08:39 Glucose (Fingerstick) 312 mg/dL (70-99) 376 mg/dL (70-99) 290 mg/dL (70-99) 308 mg/dL (70-99) Test 06/11/20 09:15 06/11/20 11:00 06/11/20 13:00 Hemoglobin 9.2 g/dL (12.0-15.5) Hematocrit 27.8 % (36.0-47.0) Mean Corpuscular Hemoglobin Concent 33 g/dL (31-37) Lactic Acid Level 4.7 mmol/L (0.4-2.0) Glucose (Fingerstick) 85 mg/dL (70-99) Laboratory Tests Test 06/10/20 17:15 06/10/20 21:22 06/11/20 08:39 06/11/20 09:15 Glucose (Fingerstick) 376 mg/dL (70-99) 290 mg/dL (70-99) 308 mg/dL (70-99) Hemoglobin 9.2 g/dL (12.0-15.5) Hematocrit 27.8 % (36.0-47.0) Mean Corpuscular Hemoglobin Concent 33 g/dL (31-37) Test 06/11/20 11:00 06/11/20 13:00 Lactic Acid Level 4.7 mmol/L (0.4-2.0) Glucose (Fingerstick) 85 mg/dL (70-99) Medications Active Scripts Medications Dose Route/Sig Max Daily Dose Days Date Category Actos (Pioglitazone Hcl) 45 Mg Tablet 1 Tab PO DAILY 30 05/18/20 Reported Diclofenac Sodium 75 Mg Tablet.dr 1 Tab PO BID 05/18/20 Reported Klor-Con 10 (Potassium Chloride) 10 Meq Tablet.er 1 Tab PO DAILY 30 05/18/20 Reported Metformin Hcl 1,000 Mg Tablet 1,000 Mg PO BIDWMEALS 05/18/20 Reported Omeprazole 20 Mg Capsule.dr 1 Cap PO DAILY 05/18/20 Reported Lisinopril-Hctz 20-25 Mg Tab (Lisinopril/Hydrochlorothiazide) 1 Each Tablet 1 Tab PO DAILY 05/18/20 Reported Aspirin Ec (Aspirin) 81 Mg Tablet.dr 1 Tab PO DAILY 05/18/20 Reported Hydralazine Hcl 100 Mg Tablet 1 Tab PO BID 05/18/20 Reported Metoprolol Tartrate 50 Mg Tablet 1 Tab PO BID 05/18/20 Reported Rosuvastatin Calcium 10 Mg Tablet 10 Mg PO DAILY 05/18/20 Reported Comments CXR : reviewed Moderate bilateral infiltrates could be secondary to atypical pneumonia or CHF. This appears similar to the prior study although there is improved aeration of the left lung base. Impression . IMPRESSION: 1. Acute hypoxic respiratory failure secondary to COVID-19 2. Abnormal chest x-ray/ARDS 3. Fever, resolved 4. Hypoglycemic encephalopathy, resolved. 5. Severe protein-calorie malnutrition. 6. Mild azotemia. 7. SARS-CoV-2 negative x2, May 18, May 19 8. Negative blood cultures 9. Possible Boop 10. Negative CT angiogram for PE 11. Acute lung injury 11. SARS-CoV-2 positive on May 31/COVID- 12. Abdominal discomfort work-up in process 13. Elevated lactic acid level possible ischemic bowel cxr 06/08 IMPRESSION: Moderate prominent bilateral interstitial lung markings likely congestive changes or interstitial infiltrates. Follow-up to resolution. Impression: CT Chest 1. No evidence of pulmonary embolism. 2. Mild left effusion and moderate bilateral infiltrates right worse than left. This could be ARDS or pulmonary edema or atypical pneumonia. Plan . Case discussed with RN and RT, proceed with CT abdomen and pelvis, close monitoring while being transported to radiology department. If patient requires surgical intervention she is at high risk for poor outcome Discontinue Lovenox for DVT prophylaxis for now due to GI bleed Decrease steroid to 60 once daily, may come off of steroids in the next 2 to 3 days BiPAP for now D-dimer noted, continue Lovenox twice daily Continue antiviral, SARS COVID 2, reported positive from 05/31, s/p Remdesivir ABX per ID DM per IM HTN per IM D/W RN and RT Total cumulative critical care time of 30 minutes, reviewing data, chest x-ray, and formulating a plan the above was discussed with KING Browne MD Jun 11, 2020 15:22
--- NOTE | 2020-06-11 15:29 | RAD ---
Study: CT abdomen/pelvis with intravenous contrast Indication: Gastrointestinal bleed. Abdominal pain. Elevated lactic acid. Comparison: Correlation is made to the CT angiography of the chest from 05/30/2020. Technique: Helical CT imaging performed of the abdomen and pelvis after the intravenous administration of 75 cc Omnipaque 300 contrast. Sagittal and coronal reformats were obtained. One or more of the following individualized dose reduction techniques were utilized for this examination: 1. Automated exposure control 2. Adjustment of the mA and/or kV according to patient size 3. Use of iterative reconstruction technique. Findings: Chest: The visualized heart is prominent in size. Groundglass and consolidative opacities throughout the visualized lungs were present previously but have worsened at the left lung base. The previously seen left pleural effusion has resolved. Liver: Mild hepatic steatosis. Gallbladder/Biliary Tree: Within normal limits. Pancreas: Low-attenuation of the pancreatic head and uncinate relative to the body and tail favored related to fatty infiltration. No discrete mass or peripancreatic inflammation. Spleen: Within normal limits for size. Adrenal Glands: Unremarkable. Kidneys/Ureters/Bladder: No complex cyst or mass seen to involve the right kidney. Rounded low-attenuation focus within the mid left kidney measures 1 cm with an internal density of 35 Hounsfield units. No collecting system dilatation. Collapsed urinary bladder around a Gaaln catheter. Reproductive Organs: Senescent uterus no adnexal mass is identified. Colon: Distended rectal vault with well-formed stool. Luminal dimension of up to 10 cm. Surrounding wall thickening and there is presacral edema. Less extensive volume of stool throughout the rest of the colon. Luminal contents are somewhat hyperdense. Diverticulosis. Limited assessment for a mass without oral contrast but no suspicious wall thickening is seen. Appendix: Unremarkable. Small Bowel: Normal caliber. Stomach: Not well evaluated due to underdistention. Vasculature: Moderate extent of calcific atherosclerosis which involves the aortic branch vessel origins, particularly the left more so than right renal arteries. No aneurysm dilatation. Lymph Nodes: Within normal limits. Peritoneum and Body Wall: Scattered body wall edema and injection related changes. Multifocal muscular atrophy/fatty infiltration. No free air. Bones: No acute or aggressive osseous process. Scattered degenerative changes. Miscellaneous: None. Impression: 1. Dilated rectal vault with impacted stool with the lumen measuring up to 10 cm in transverse dimension. Surrounding wall thickening without pneumatosis or perforation. Presacral edema noted as well collectively raising the question of stercoral colitis. An enema could be attempted to help relieve versus manual decompaction as necessary. Proximal to this impacted stool the colonic luminal contents are somewhat hyperdense which could be related to blood products given history. No mass is appreciated and should this represent hemorrhage it could be originating from diverticuli or theoretically from pressure ulceration given the extent of impacted stool. 2. Redemonstration of groundglass and consolidative opacities throughout both lower lungs appearing slightly worsened at the left lung base. The previously seen left pleural effusion has resolved. 3. Mild hepatic steatosis. 4. Enlargement of the partially imaged heart. Electronically signed by: DALY LOCKE MD (06/11/2020 3:26 PM) [id number]
[2020-06-11] MEDS: MORPHINE SULFATE 2 MG/ML VIAL. IV PRN (15:32)
--- NOTE | 2020-06-11 16:13 | NUR ---
SS following up with discharge planning. [facility] insurance overturned denial for [facility], ; fax [phone]. Pt now approved for LTACH. [facility] reported that they will contact staff forester over the weekend when bed is available. SS will continue to follow for discharge planning.
[2020-06-11] MEDS: PIPERACILLIN/TAZOBACTAM 2.25 GM in IV NORMAL SALINE 50ML 50 ML IV SCH ×2 (17:54→22:47)
--- NOTE | 2020-06-11 19:30 | NUR ---
Patient had order for tap water enema, music writer attempt enema without any success due to patient being impacted with stool. Patient had blood stools. MD Janet notified new orders received.
[2020-06-11] MEDS ORDERED: LACTULOSE 20 GM/30 ML SOLUTION. PO ONE (20:00)
[2020-06-11] MEDS: POLYETHYLENE GLYCOL 3350 17 GM PACKET. PO SCH (20:30)
[2020-06-11] MEDS: ATORVASTATIN CALCIUM 40 MG TABLET. PO SCH (20:34)
[2020-06-11] MEDS: INSULIN GLARGINE SYRINGE. SQ SCH (21:25)
[2020-06-12] VITALS (24 sets, daily range): BP systolic 83–154; BP diastolic 48–82
[2020-06-12] MEDS: MORPHINE SULFATE 2 MG/ML VIAL. IV PRN ×4 (02:15→21:07)
[2020-06-12] MEDS: PIPERACILLIN/TAZOBACTAM 2.25 GM in IV NORMAL SALINE 50ML 50 ML IV SCH ×3 (05:49→21:03)
[2020-06-12] MEDS: POLYETHYLENE GLYCOL 3350 17 GM PACKET. PO SCH ×2 (06:00→17:14)
--- NOTE | 2020-06-12 06:06 | NUR ---
0600 Miralax held for significant abdominal pain after previous administration.
--- NOTE | 2020-06-12 07:15 | PDOC ---
PULMONARY PROGRESS NOTES Subjective Patient having some abdominal discomfort on bipap No chest pain no pressure no increasing shortness of breath Vitals Vital Signs Date Time Temp Pulse Resp B/P (MAP) Pulse Ox O2 Delivery O2 Flow Rate FiO2 06/12/20 06:00 77 30 148/76 (100) 99 BiPAP/CPAP 06/12/20 04:00 40.0 06/11/20 20:00 98.7 98.7 Comments cassidy as mentioned as above other sys otherwise neg ROS: No Chest Pain, No Increase Cough General: Alert Lungs: Crackles Cardiovascular: S1, S2 Abdomen: Soft, Non-tender Neuro Exam: Alert Extremities: Other (+2 BLE ) Skin: Warm Labs Laboratory Tests Test 06/10/20 08:22 06/10/20 11:33 06/10/20 17:15 06/10/20 21:22 Glucose (Fingerstick) 337 mg/dL (70-99) 312 mg/dL (70-99) 376 mg/dL (70-99) 290 mg/dL (70-99) Test 06/11/20 08:39 06/11/20 09:15 06/11/20 11:00 06/11/20 13:00 Glucose (Fingerstick) 308 mg/dL (70-99) 85 mg/dL (70-99) Hemoglobin 9.2 g/dL (12.0-15.5) Hematocrit 27.8 % (36.0-47.0) Mean Corpuscular Hemoglobin Concent 33 g/dL (31-37) Lactic Acid Level 4.7 mmol/L (0.4-2.0) Test 06/11/20 16:30 06/11/20 18:07 06/11/20 20:52 Lactic Acid Level 1.2 mmol/L (0.4-2.0) Glucose (Fingerstick) 375 mg/dL (70-99) 195 mg/dL (70-99) Laboratory Tests Test 06/11/20 08:39 06/11/20 09:15 06/11/20 11:00 06/11/20 13:00 Glucose (Fingerstick) 308 mg/dL (70-99) 85 mg/dL (70-99) Hemoglobin 9.2 g/dL (12.0-15.5) Hematocrit 27.8 % (36.0-47.0) Mean Corpuscular Hemoglobin Concent 33 g/dL (31-37) Lactic Acid Level 4.7 mmol/L (0.4-2.0) Test 06/11/20 16:30 06/11/20 18:07 06/11/20 20:52 Lactic Acid Level 1.2 mmol/L (0.4-2.0) Glucose (Fingerstick) 375 mg/dL (70-99) 195 mg/dL (70-99) Medications Active Scripts Medications Dose Route/Sig Max Daily Dose Days Date Category Actos (Pioglitazone Hcl) 45 Mg Tablet 1 Tab PO DAILY 30 05/18/20 Reported Diclofenac Sodium 75 Mg Tablet.dr 1 Tab PO BID 05/18/20 Reported Klor-Con 10 (Potassium Chloride) 10 Meq Tablet.er 1 Tab PO DAILY 30 05/18/20 Reported Metformin Hcl 1,000 Mg Tablet 1,000 Mg PO BIDWMEALS 05/18/20 Reported Omeprazole 20 Mg Capsule.dr 1 Cap PO DAILY 05/18/20 Reported Lisinopril-Hctz 20-25 Mg Tab (Lisinopril/Hydrochlorothiazide) 1 Each Tablet 1 Tab PO DAILY 05/18/20 Reported Aspirin Ec (Aspirin) 81 Mg Tablet.dr 1 Tab PO DAILY 05/18/20 Reported Hydralazine Hcl 100 Mg Tablet 1 Tab PO BID 05/18/20 Reported Metoprolol Tartrate 50 Mg Tablet 1 Tab PO BID 05/18/20 Reported Rosuvastatin Calcium 10 Mg Tablet 10 Mg PO DAILY 05/18/[address] of abd 1. Dilated rectal vault with impacted stool with the lumen measuring up to 10 cm in transverse dimension. Surrounding wall thickening without pneumatosis or perforation. Presacral edema noted as well collectively raising the question of stercoral colitis. An enema could be attempted to help relieve versus manual decompaction as necessary. Proximal to this impacted stool the colonic luminal contents are somewhat hyperdense which could be related to blood products given history. No mass is appreciated and should this represent hemorrhage it could be originating from diverticuli or theoretically from pressure ulceration given the extent of impacted stool. 2. Redemonstration of groundglass and consolidative opacities throughout both lower lungs appearing slightly worsened at the left lung base. The previously seen left pleural effusion has resolved. 3. Mild hepatic steatosis. 4. Enlargement of the partially imaged heart. CXR : reviewed Moderate bilateral infiltrates could be secondary to atypical pneumonia or CHF. This appears similar to the prior study although there is improved aeration of the left lung base. Impression . IMPRESSION: 1. Acute hypoxic respiratory failure secondary to COVID-19 2. Abnormal chest x-ray/ARDS 3. Fever, resolved 4. Hypoglycemic encephalopathy, resolved. 5. Severe protein-calorie malnutrition. 6. Mild azotemia. 7. SARS-CoV-2 negative x2, May 18, May 19 8. Negative blood cultures 9. Possible Boop 10. Negative CT angiogram for PE 11. Acute lung injury 11. SARS-CoV-2 positive on May 31/COVID-[address] reviewed, per gi 13. Elevated lactic acid level 14. fecal impaction cxr 06/08 IMPRESSION: Moderate prominent bilateral interstitial lung markings likely congestive changes or interstitial infiltrates. Follow-up to resolution. Impression: CT Chest 1. No evidence of pulmonary embolism. 2. Mild left effusion and moderate bilateral infiltrates right worse than left. This could be ARDS or pulmonary edema or atypical pneumonia. Plan . Case discussed with RN and RT, on bipap and vapotherm still needing fio2 100% ct of abd reviewed, per gi If patient requires surgical intervention she is at high risk for poor outcome, no surgery per surgery Discontinue Lovenox for DVT prophylaxis for now due to GI bleed cont steroid to 60 once daily, may come off of steroids in the next 2 to 3 days BiPAP for now D-dimer noted, continue Lovenox twice daily Continue antiviral, SARS COVID 2, reported positive from 05/31, s/p Remdesivir ABX per ID DM per IM HTN per IM D/W RN and RT critically ill Total cumulative critical care time of 30 minutes, reviewing data, chest x-ray, and formulating a plan no overlap ANNE DARDEN MD Jun 12, 2020 07:15
[2020-06-12] MEDS: INSULIN LISPRO 300 UNITS/3 ML VIAL. SQ SCH ×3 (08:00→17:28)
[2020-06-12] MEDS: methIMAzole 10 MG TABLET PO SCH ×2 (08:03→20:24)
[2020-06-12] MEDS: LISINOPRIL 20 MG TABLET PO SCH (08:03)
[2020-06-12] MEDS: PANTOPRAZOLE IV PUSH 40 MG VIAL. IVP SCH (08:04)
[2020-06-12] MEDS: LACTOBACILLUS RHAMNOSUS GG 1 CAPSULE. PO SCH ×2 (08:04→20:25)
[2020-06-12] MEDS: NYSTATIN 100,000 UNITS/ML 5 ML ORAL.SUSP. SWSW SCH ×4 (08:04→20:25)
[2020-06-12] MEDS: amLODIPine BESYLATE 10 MG TABLET PO SCH (08:04)
[2020-06-12] MEDS: methylPREDNISolone SOD SUCC PF 125 MG/2 ML VIAL. IV SCH (08:05)
[2020-06-12] MEDS: hydroCHLOROthiazide 12.5 MG CAPSULE PO SCH (08:06)
--- NOTE | 2020-06-12 08:44 | PDOC ---
Infectious Disease Note Subjective Subjective c/o abdominal pain, constipated s/p Tiny-Lax + blood in stool CT A/P reviewed No fevers last 48 hrs On BiPAP FiO2 90% ROS ROS as mentioned above Vital Sign Vital Signs Vital Signs Date Time Temp Pulse Resp B/P (MAP) Pulse Ox O2 Delivery O2 Flow Rate FiO2 06/12/20 08:04 88 133/64 06/12/20 07:00 22 99 BiPAP/CPAP 06/12/20 04:00 40.0 06/11/20 20:00 98.7 98.7 Physical Exam PHYSICAL EXAM GENERAL: Lying down, resting quietly, on BiPAP HEENT: On BiPAP NECK: Supple. LUNGS: No increase work of breathing HEART: S1, S2. regular ABDOMEN: Obese, soft : Galan in place EXTREMITIES: Trace edema lower extremities bilaterally. No cyanosis DERMATOLOGIC: Warm, dry. No generalized rash. PIV Labs Lab Laboratory Tests Test 06/11/20 08:39 06/11/20 09:15 06/11/20 11:00 06/11/20 13:00 Glucose (Fingerstick) 308 mg/dL (70-99) 85 mg/dL (70-99) Hemoglobin 9.2 g/dL (12.0-15.5) Hematocrit 27.8 % (36.0-47.0) Mean Corpuscular Hemoglobin Concent 33 g/dL (31-37) Lactic Acid Level 4.7 mmol/L (0.4-2.0) Test 06/11/20 16:30 06/11/20 18:07 06/11/20 20:52 Lactic Acid Level 1.2 mmol/L (0.4-2.0) Glucose (Fingerstick) 375 mg/dL (70-99) 195 mg/dL (70-99) CT A/P, 06/11 Impression: 1. Dilated rectal vault with impacted stool with the lumen measuring up to 10 cm in transverse dimension. Surrounding wall thickening without pneumatosis or perforation. Presacral edema noted as well collectively raising the question of stercoral colitis. An enema could be attempted to help relieve versus manual decompaction as necessary. Proximal to this impacted stool the colonic luminal contents are somewhat hyperdense which could be related to blood products given history. No mass is appreciated and should this represent hemorrhage it could be originating from diverticuli or theoretically from pressure ulceration given the extent of impacted stool. 2. Redemonstration of groundglass and consolidative opacities throughout both lower lungs appearing slightly worsened at the left lung base. The previously seen left pleural effusion has resolved. 3. Mild hepatic steatosis. 4. Enlargement of the partially imaged heart. Micro 05/18 BLOOD CULTURE LC Final Final GRAM POSITIVE COCCI FINAL ID= [MICROCOCCUS SPECIES] UNABLE TO GROW FOR SUSCEPTIBILITY TESTING MICRO CHARGES MICROCOCCUS SPECIES 05/24. BLOOD CULTURE Preliminary NO GROWTH AFTER 5 DAYS 05/26. RESPIRATORY CULTURE Preliminary Preliminary MODERATE Mixed upper respiratory gerri on 05/27/20 at 1115 Objective Assessment COVID-19 viral infection, 05/30. (negative on 05/18/2020 and ) s/p Remdesivir Acute hypoxic respiratory failure Pneumonia. sputum cx: Resp gerri. Off vanc/Zosyn/doxy. Off augmentin Fever - now resolved Leukocytosis, on steroids. CHF Hypoglycemic encephalopathy, resolved. Diabetes. Hypertension. Severe protein-calorie malnutrition. Gram-positive cocci bacteremia, 05/18/2020, 1 out of 2 bottles, ID MICROCOCCUS SPECIES, likely a contaminant. Thrush Contipation/impaction Plan Plan of Care Zosyn restarted 06/11 Steroids per pulmonary Maintain aspiration precautions Supportive care Airborne isolation for + COVID D/w nursing Attending Co-Sign The patient was seen and interviewed as well as examined at the bedside. The chart was reviewed. The case was discussed. Agree with the plan of care. CESAR DENIS APRN Jun 12, 2020 08:44 BYRON REDMOND MD Jun 12, 2020 13:04
--- NOTE | 2020-06-12 10:27 | PDOC ---
PROGRESS NOTES Subjective Subjective pt seen, states she has pain in lower abdomen; nurse was able to disimpact large hard stool in rectum Objective Objective Vital Signs Date Time Temp Pulse Resp B/P (MAP) Pulse Ox O2 Delivery O2 Flow Rate FiO2 06/12/20 10:15 20 97 BiPAP/CPAP 06/12/20 08:04 88 133/64 06/12/20 04:00 40.0 06/11/20 20:00 98.7 98.7 Intake and Output 06/12/20 07:00 Intake Total 600 ml Output Total 1650 ml Balance -1050 ml Intake Oral 600 ml Output Urine Total 1650 ml # Bowel Movements 3 Physical Exam Abdomen: Soft (reports tenderness in lower abdomen, no guarding or peritoneal signs, no distension) Extremities: No clubbing, No cyanosis General: Alert, Oriented X3 HEENT: PERRLA MUSCULOSKELETAL: No deformity Neuro: Normal speech Psych/Mental Status: Mental status NL Assessment Assessment Problems Medical Problems: (1) Altered mental status Status: Acute (2) Hypoglycemia Status: Acute (3) Hypothermia Status: Acute Plan Plan of Care Pt examined, CT reviewed; today abdomen soft without peritoneal signs, CT showed no pneumatosis, free air, SB dilation, wall thickening; CT did note rectal impaction which has been improved and suspected rectal bleeding due to ulceration; No surgical recommendations at this time, continue supportive therapy, check labs today Comment Review of Relevant I have reviewed the following items kavya (where applicable) has been applied. Labs Laboratory Tests Test 06/10/20 11:33 06/10/20 17:15 06/10/20 21:22 06/11/20 08:39 Glucose (Fingerstick) 312 mg/dL (70-99) 376 mg/dL (70-99) 290 mg/dL (70-99) 308 mg/dL (70-99) Test 06/11/20 09:15 06/11/20 11:00 06/11/20 13:00 06/11/20 16:30 Hemoglobin 9.2 g/dL (12.0-15.5) Hematocrit 27.8 % (36.0-47.0) Mean Corpuscular Hemoglobin Concent 33 g/dL (31-37) Lactic Acid Level 4.7 mmol/L (0.4-2.0) 1.2 mmol/L (0.4-2.0) Glucose (Fingerstick) 85 mg/dL (70-99) Test 06/11/20 18:07 06/11/20 20:52 06/12/20 09:08 Glucose (Fingerstick) 375 mg/dL (70-99) 195 mg/dL (70-99) 112 mg/dL (70-99) Laboratory Tests Test 06/11/20 11:00 06/11/20 13:00 06/11/20 16:30 06/11/20 18:07 Lactic Acid Level 4.7 mmol/L (0.4-2.0) 1.2 mmol/L (0.4-2.0) Glucose (Fingerstick) 85 mg/dL (70-99) 375 mg/dL (70-99) Test 06/11/20 20:52 06/12/20 09:08 Glucose (Fingerstick) 195 mg/dL (70-99) 112 mg/dL (70-99) Microbiology 05/26/20 Gram Stain Evaluation - Final, Complete 05/26/20 Respiratory Culture - Final, Complete 05/24/20 Blood Culture - Final, Complete NO GROWTH AFTER 5 DAYS 05/18/20 Urine Culture - Final, Complete Medications Current Medications Sodium Chloride 1,000 ml @ 1,000 mls/hr 1X ONCE IV Last administered on 05/18/20at 09:29; Start 05/18/20 at 09:15; Stop 05/18/20 at 10:14; Status DC Ceftriaxone Sodium (Rocephin) 1 gm 1X ONCE IVP Last administered on 05/18/20at 09:28; Start 05/18/20 at 09:15; Stop 05/18/20 at 09:16; Status DC Ondansetron HCl (Zofran) 4 mg PRN Q8HRS PRN IV NAUSEA/VOMITING; Start 05/18/20 at 10:15; Stop 05/18/20 at 16:24; Status DC Acetaminophen (Tylenol) 650 mg PRN Q4HRS PRN PO FEVER > 100.3'F; Start 05/18/20 at 10:15; Stop 05/18/20 at 16:24; Status DC Ceftriaxone Sodium (Rocephin) 1 gm Q24H IVP Last administered on 05/24/20at 09:09; Start 05/19/20 at 09:00; Stop 05/24/20 at 18:10; Status DC Sodium Chloride (Normal Saline Flush) 3 ml QSHIFT PRN IV AFTER MEDS AND BLOOD DRAWS; Start 05/18/20 at 16:30 Sodium Chloride 1,000 ml @ 85 mls/hr [id number] IV Last administered on 05/24/20at 18:31; Start 05/18/20 at 16:20; Stop 05/25/20 at 09:44; Status DC Ondansetron HCl (Zofran) 4 mg PRN Q4HRS PRN IV NAUSEA/VOMITING; Start 05/18/20 at 16:30 Acetaminophen (Tylenol) 650 mg PRN Q4HRS PRN PO TEMP OVER 100.4F OR MILD PAIN Last administered on 06/10/20at 12:33; Start 05/18/20 at 16:30 Acetaminophen (Tylenol Supp) 650 mg PRN Q4HRS PRN VT TEMP OVER 100.4F OR MILD PAIN; Start 05/18/20 at 16:30 Sodium Monofluorophosphate (Fleet Adult) 133 ml PRN DAILY PRN VT CONSTIPATION; Start 05/18/20 at 16:30 Docusate Sodium (Colace) 100 mg PRN BID PRN PO HARD STOOLS Last administered on 06/10/20at 22:32; Start 05/18/20 at 16:30 Albuterol Sulfate (Ventolin Neb Soln) 2.5 mg PRN Q4HRS PRN NEB SHORTNESS OF BREATH Last administered on 05/21/20at 18:14; Start 05/18/20 at 16:30; Stop 05/31/20 at 16:19; Status DC Guaifenesin (Robitussin) 200 mg PRN Q4HRS PRN PO COUGH Last administered on 05/23/20at 20:00; Start 05/18/20 at 16:30 Enoxaparin Sodium (Lovenox 40mg Syringe) 40 mg Q24H SQ Last administered on 05/31/20at 17:03; Start 05/18/20 at 17:00; Stop 06/01/20 at 10:27; Status DC Aspirin (Ecotrin) 81 mg DAILY PO Last administered on 06/11/20at 08:29; Start 05/19/20 at 09:00; Stop 7/17/20 at 13:19; Status DC Metoprolol Tartrate (Lopressor) 50 mg BID PO Last administered on 05/21/20 09:16; Start 05/19/20 at 09:00; Stop 05/21/20 at 15:45; Status DC Diclofenac Sodium (Voltaren) 75 mg BID PO Last administered on 06/03/20at 20:29; Start 05/19/20 at 10:00; Stop 06/04/20 at 08:03; Status DC Hydralazine HCl (Apresoline) 100 mg BID PO Last administered on 05/21/20at 09:15; Start 05/19/20 at 09:00; Stop 05/21/20 at 15:45; Status DC Lisinopril (Prinivil) 20 mg DAILY PO Last administered on 05/21/20 09:16; Start 05/19/20 at 10:00; Stop 05/21/20 at 15:45; Status DC Pantoprazole Sodium (Protonix) 40 mg DAILYAC PO Last administered on 06/11/20 08:29; Start 05/19/20 at 10:00; Stop 06/11/20 at 11:58; Status DC Atorvastatin Calcium (Lipitor) 40 mg QHS PO Last administered on 06/11/20 20:34; Start 05/19/20 at 21:00 Hydrochlorothiazide (Hydrodiuril) 25 mg DAILY PO Last administered on 05/23/20at 08:59; Start 05/19/20 at 10:00; Stop 05/23/20 at 10:22; Status DC Lactobacillus Rhamnosus (Culturelle) 1 cap BID PO Last administered on 06/12/20at 08:04; Start 05/19/20 at 21:00 Insulin Human Lispro (HumaLOG) 0-7 UNITS TIDWMEALS SQ Last administered on 06/10/20at 12:35; Start 05/19/20 at 17:00; Stop 06/10/20 at 17:33; Status DC Dextrose (Dextrose 50%-Water Syringe) 12.5 gm PRN Q15MIN PRN IV SEE COMMENTS Last administered on 06/04/20at 06:52; Start 05/19/20 at 14:15 Methimazole (Tapazole) 5 mg BID PO Last administered on 06/12/20at 08:03; Start 05/20/20 at 10:00 Insulin Glargine (Lantus Syringe) 5 unit DAILY SQ Last administered on 05/22/20at 09:15; Start 05/21/20 at 09:00; Stop 05/22/20 at 21:05; Status DC Doxycycline Hyclate (Vibra-Tab) 100 mg BID PO Last administered on 05/28/20at 08:53; Start 05/21/20 at 15:00; Stop 05/28/20 at 15:02; Status DC Furosemide (Lasix) 20 mg 1X ONCE IVP Last administered on 05/21/20at 17:05; Start 05/21/20 at 17:00; Stop 05/21/20 at 17:01; Status DC Sterile Water (WATER for RESP) 1,000 ml CONT PRN INH VIA VAPOTHERM DEVICE Last administered on 05/23/20at 16:26; Start 05/21/20 at 17:15; Stop 05/30/20 at 12:58; Status DC Albuterol Sulfate (Ventolin Neb Soln) 2.5 mg Q4HRS NEB Last administered on 05/30/20at 15:45; Start 05/21/20 at 20:00; Stop 05/31/20 at 16:19; Status DC Vancomycin HCl (Vanco Per Pharmacy) 1 each PRN DAILY PRN MC SEE COMMENTS Last administered on 05/25/20at 23:52; Start 05/22/20 at 09:00; Stop 05/27/20 at 16:29; Status DC Vancomycin HCl 2 gm/Sodium Chloride 500 ml @ 250 mls/hr 1X ONCE IV Last administered on 05/22/20at 09:05; Start 05/22/20 at 09:00; Stop 05/22/20 at 10:59; Status DC Vancomycin HCl 1.25 gm/Sodium Chloride 250 ml @ 167 mls/hr Q24H IV Last administered on 05/23/20at 09:00; Start 05/23/20 at 09:00; Stop 05/24/20 at 10:05; Status DC Vancomycin HCl (Vancomycin Trough Level) 1 each 1X ONCE MC Last administered on 05/24/20at 08:30; Start 05/24/20 at 08:30; Stop 05/24/20 at 08:31; Status DC Methylprednisolone Sodium Succinate (SOLU-Medrol 125MG VIAL) 80 mg Q8HRS IV Last administered on 05/27/20 06:04; Start 05/22/20 at 14:00; Stop 05/27/20 at 12:02; Status DC Insulin Glargine (Lantus Syringe) 10 unit BID SQ Last administered on 05/23/20at 09:11; Start 05/22/20 at 21:00; Stop 05/23/20 at 20:17; Status DC Metoprolol Tartrate (Lopressor) 50 mg BID PO Last administered on 06/08/20at 08:23; Start 05/23/20 at 10:30; Stop 06/08/20 at 10:43; Status DC Hydrochlorothiazide (Microzide) 12.5 mg DAILY PO Last administered on 06/12/20at 08:06; Start 05/24/20 at 09:00 Potassium Chloride (Klor-Con) 40 meq Q2H PO Last administered on 05/23/20at 14:58; Start 05/23/20 at 10:30; Stop 05/23/20 at 14:31; Status DC Lisinopril (Prinivil) 40 mg DAILY PO Last administered on 06/12/20at 08:03; Start 05/23/20 at 10:30 Hydralazine HCl (Apresoline) 100 mg BID PO Last administered on 06/12/20at 08:04; Start 05/23/20 at 10:30 Insulin Glargine (Lantus Syringe) 10 unit BID SQ Last administered on 05/24/20at 09:14; Start 05/23/20 at 21:00; Stop 05/24/20 at 11:28; Status DC Vancomycin HCl 1.25 gm/Sodium Chloride 250 ml @ 167 mls/hr Q12H IV Last administered on 05/27/20at 08:21; Start 05/24/20 at 10:30; Stop 05/27/20 at 16:26; Status DC Vancomycin HCl (Vancomycin Trough Level) 1 each 1X ONCE MC Last administered on 05/25/20at 22:00; Start 05/25/20 at 22:00; Stop 05/25/20 at 22:01; Status DC Insulin Glargine (Lantus Syringe) 12 unit BID SQ ; Start 05/24/20 at 21:00; Stop 05/24/20 at 17:27; Status DC Insulin Glargine (Lantus Syringe) 15 unit BID SQ Last administered on 05/25/20at 08:19; Start 05/24/20 at 21:00; Stop 05/25/20 at 09:47; Status DC Insulin Human Lispro (HumaLOG) 7 units 1X ONCE SQ Last administered on 05/24/20at 18:01; Start 05/24/20 at 17:30; Stop 05/24/20 at 17:31; Status DC Piperacillin Sod/ Tazobactam Sod 3.375 gm/Sodium Chloride 50 ml @ 100 mls/hr Q6HRS IV Last administered on 05/28/20at 12:09; Start 05/24/20 at 18:30; Stop 05/28/20 at 15:01; Status DC Insulin Human Lispro (HumaLOG) 11 units 1X SQ ; Start 05/24/20 at 21:30; Status Cancel Insulin Human Lispro (HumaLOG) 11 units 1X ONCE SQ Last administered on 05/24/20at 22:25; Start 05/24/20 at 22:00; Stop 05/24/20 at 22:01; Status DC Furosemide (Lasix) 20 mg 1X ONCE IVP Last administered on 05/25/20at 11:12; Start 05/25/20 at 10:00; Stop 05/25/20 at 10:01; Status DC Insulin Glargine (Lantus Syringe) 18 unit BID SQ Last administered on 05/27/20at 08:33; Start 05/25/20 at 21:00; Stop 05/27/20 at 12:00; Status DC Midazolam HCl (Versed) 2 mg 1X ONCE IV ; Start 05/25/20 at 10:30; Stop 05/25/20 at 10:31; Status Cancel Fentanyl Citrate (Fentanyl 2ml Vial) 50 mcg 1X ONCE IM ; Start 05/25/20 at 10:30; Stop 05/25/20 at 10:31; Status Cancel Hydralazine HCl (Apresoline Inj) 10 mg PRN Q4HRS PRN IVP ELEVATED BP, SEE COMMENTS Last administered on 06/10/20at 01:08; Start 05/25/20 at 16:15 Potassium Chloride (Klor-Con) 40 meq 1X ONCE PO Last administered on 05/26/20at 18:43; Start 05/26/20 at 18:30; Stop 05/26/20 at 18:31; Status DC Insulin Glargine (Lantus Syringe) 22 unit BID SQ Last administered on 05/29/20at 08:24; Start 05/27/20 at 21:00; Stop 05/29/20 at 12:14; Status DC Methylprednisolone Sodium Succinate (SOLU-Medrol 125MG VIAL) 40 mg Q12HR IV Last administered on 05/28/20at 08:52; Start 05/27/20 at 19:00; Stop 05/28/20 at 13:37; Status DC Nystatin (Nystatin Oral Susp) 5 ml [id number] Last administered on 06/12/20at 08:04; Start 05/27/20 at 17:00 Insulin Human Lispro (HumaLOG) 20 units 1X ONCE SQ Last administered on 05/27/20at 17:32; Start 05/27/20 at 17:30; Stop 05/27/20 at 17:31; Status DC Methylprednisolone Sodium Succinate (SOLU-Medrol 40MG VIAL) 40 mg Q12HR IV Last administered on 05/30/20at 08:34; Start 05/28/20 at 21:00; Stop 05/30/20 at 14:10; Status DC Amoxicillin/ Clavulanate Potassium (Augmentin 875/ 125mg) 1 tab BID PO Last administered on 05/31/20at 19:53; Start 05/28/20 at 21:00; Stop 05/31/20 at 21:01; Status DC Amlodipine Besylate (Norvasc) 2.5 mg DAILY PO Last administered on 06/09/20at 08:40; Start 05/29/20 at 11:45; Stop 06/10/20 at 02:44; Status DC Furosemide (Lasix) 20 mg 1X ONCE PO Last administered on 05/29/20at 12:40; Start 05/29/20 at 12:30; Stop 05/29/20 at 12:31; Status DC Potassium Chloride (Klor-Con) 20 meq 1X ONCE PO Last administered on 05/29/20at 12:40; Start 05/29/20 at 12:30; Stop 05/29/20 at 12:31; Status DC Insulin Glargine (Lantus Syringe) 25 unit BID SQ Last administered on 06/04/20at 07:58; Start 05/29/20 at 21:00; Stop 06/04/20 at 09:20; Status DC Furosemide (Lasix) 40 mg 1X ONCE IVP Last administered on 05/30/20at 11:47; Start 05/30/20 at 11:15; Stop 05/30/20 at 11:16; Status DC Iohexol (Omnipaque 350 Mg/ml) 100 ml 1X ONCE IV Last administered on 05/30/20at 12:00; Start 05/30/20 at 12:00; Stop 05/30/20 at 12:01; Status DC Info (CONTRAST GIVEN -- Rx MONITORING) 1 each PRN DAILY PRN MC SEE COMMENTS; Start 05/30/20 at 12:15; Stop 06/01/20 at 12:14; Status DC Sterile Water (WATER for RESP) 1,000 ml CONT PRN INH VIA VAPOTHERM DEVICE Last administered on 06/10/20at 18:28; Start 05/30/20 at 13:00 Methylprednisolone Sodium Succinate (SOLU-Medrol 125MG VIAL) 125 mg Q12HR IV Last administered on 06/09/20at 08:41; Start 05/30/20 at 14:15; Stop 06/09/20 at 13:11; Status DC Enoxaparin Sodium (Lovenox 40mg Syringe) 40 mg BID SQ Last administered on 06/10/20at 08:15; Start 06/01/20 at 21:00; Stop 06/10/20 at 13:46; Status DC Non-Formulary Medication 1 ea/ Sodium Chloride 210 ml @ 210 mls/hr 1X ONCE IV Last administered on 06/01/20at 17:11; Start 06/01/20 at 16:30; Stop 06/01/20 at 17:29; Status DC Non-Formulary Medication 1 ea/ Sodium Chloride 230 ml @ 460 mls/hr DAILY IV Last administered on 06/05/20at 17:38; Start 06/02/20 at 09:00; Stop 06/05/20 at 09:29; Status DC Potassium Chloride (Klor-Con) 40 meq 1X ONCE PO Last administered on 06/03/20at 09:51; Start 06/03/20 at 08:00; Stop 06/03/20 at 08:01; Status DC Diclofenac Sodium (Voltaren) 75 mg BID PO ; Start 06/04/20 at 08:03; Stop 06/04/20 at 08:04; Status DC Diclofenac Sodium (Voltaren) 75 mg BID PO Last administered on 06/10/20at 21:15; Start 06/04/20 at 09:00; Stop 06/11/20 at 13:19; Status DC Insulin Glargine (Lantus Syringe) 30 unit QHS SQ Last administered on 06/04/20at 21:14; Start 06/04/20 at 21:00; Stop 06/05/20 at 10:25; Status DC Insulin Glargine (Lantus Syringe) 15 unit QHS SQ Last administered on 06/09/20at 21:29; Start 06/05/20 at 21:00; Stop 06/10/20 at 13:46; Status DC Furosemide (Lasix) 40 mg 1X ONCE IVP Last administered on 06/08/20at 11:14; Start 06/08/20 at 11:00; Stop 06/08/20 at 11:02; Status DC Methylprednisolone Sodium Succinate (SOLU-Medrol 125MG VIAL) 60 mg BID IV Last administered on 06/11/20at 08:29; Start 06/09/20 at 21:00; Stop 06/11/20 at 15:22; Status DC Amlodipine Besylate (Norvasc) 10 mg 1X ONCE PO Last administered on 06/10/20at 03:16; Start 06/10/20 at 03:00; Stop 06/10/20 at 03:01; Status DC Amlodipine Besylate (Norvasc) 10 mg DAILY PO Last administered on 06/12/20at 08:04; Start 06/10/20 at 09:00 Hydralazine HCl (Apresoline Inj) 10 mg 1X ONCE IVP Last administered on 06/10/20at 03:16; Start 06/10/20 at 03:00; Stop 06/10/20 at 03:01; Status DC Enoxaparin Sodium (Lovenox 40mg Syringe) 40 mg DAILY SQ Last administered on 06/11/20at 08:28; Start 06/11/20 at 09:00; Stop 06/11/20 at 09:09; Status DC Insulin Glargine (Lantus Syringe) 20 unit QHS SQ Last administered on 06/11/20at 21:25; Start 06/10/20 at 13:45 Insulin Human Lispro (HumaLOG) 0-9 UNITS TIDWMEALS SQ Last administered on 06/11/20at 09:04; Start 06/10/20 at 17:40; Stop 06/11/20 at 08:00; Status DC Pantoprazole Sodium (PROTONIX VIAL for IV PUSH) 40 mg DAILYAC IVP Last administered on 06/12/20at 08:04; Start 06/12/20 at 07:30 Insulin Human Lispro (HumaLOG) 0-9 UNITS TIDWMEALS SQ Last administered on 06/11/20at 17:00; Start 06/11/20 at 13:00 Iohexol (Omnipaque 300 Mg/ml) 75 ml 1X ONCE IV Last administered on 06/11/20at 14:50; Start 06/11/20 at 13:15; Stop 06/11/20 at 13:16; Status DC Info (CONTRAST GIVEN -- Rx MONITORING) 1 each PRN DAILY PRN MC SEE COMMENTS; Start 06/11/20 at 13:15; Stop 06/13/20 at 13:14 Morphine Sulfate (Morphine Sulfate) 2 mg PRN Q2HR PRN IV PAIN Last administered on 06/12/20at 10:15; Start 06/11/20 at 15:15 Methylprednisolone Sodium Succinate (SOLU-Medrol 125MG VIAL) 60 mg DAILY IV Last administered on 06/12/20at 08:05; Start 06/12/20 at 09:00 Piperacillin Sod/ Tazobactam Sod 2.25 gm/Sodium Chloride 50 ml @ 100 mls/hr Q8HRS IV Last administered on 06/12/20at 05:49; Start 06/11/20 at 17:00 Lactulose (Lactulose) 30 gm 1X ONCE PO Last administered on 06/11/20at 20:30; Start 06/11/20 at 20:00; Stop 06/11/20 at 20:01; Status DC Polyethylene Glycol (miraLAX PACKET) 17 gm [id number] PO Last administered on 06/11/20at 20:30; Start 06/11/20 at 20:00 Active Scripts Active Reported Actos (Pioglitazone Hcl) 45 Mg Tablet 1 Tab PO DAILY 30 Days Diclofenac Sodium 75 Mg Tablet. 1 Tab PO BID Klor-Con 10 (Potassium Chloride) 10 Meq Tablet.er 1 Tab PO DAILY 30 Days Metformin Hcl 1,000 Mg Tablet 1,000 Mg PO BIDWMEALS Omeprazole 20 Mg Capsule. 1 Cap PO DAILY Lisinopril-Hctz 20-25 Mg Tab (Lisinopril/Hydrochlorothiazide) 1 Each Tablet 1 Tab PO DAILY Aspirin Ec (Aspirin) 81 Mg Tablet.dr Elias Tab PO DAILY Hydralazine Hcl 100 Mg Tablet 1 Tab PO BID Metoprolol Tartrate 50 Mg Tablet 1 Tab PO BID Rosuvastatin Calcium 10 Mg Tablet 10 Mg PO DAILY Vitals/I & O Vital Sign - Last 24 Hours 06/11/20 06/11/20 06/11/20 06/11/20 11:00 11:59 12:00 12:00 Pulse 72 Resp 29 B/P (MAP) 120/64 (82) Pulse Ox 93 95 O2 Delivery Vapotherm VAPOTHERM O2 Flow Rate 40.0 40.0 40.0 06/11/20 06/11/20 06/11/20 06/11/20 12:00 13:00 14:00 15:00 Pulse 76 96 70 70 Resp 38 38 38 38 B/P (MAP) 113/55 (74) 114/55 (74) 141/73 (95) 141/73 (95) Pulse Ox 29 86 96 96 O2 Delivery BiPAP/CPAP BiPAP/CPAP BiPAP/CPAP BiPAP/CPAP 06/11/20 06/11/20 06/11/20 06/11/20 15:41 16:00 16:00 16:00 Pulse 70 Resp 27 B/P (MAP) 145/70 (95) Pulse Ox 98 98 O2 Delivery [id number] Bi-pap BiPAP/CPAP O2 Flow Rate 40.0 40.0 06/11/20 06/11/20 06/11/20 06/11/20 17:00 18:00 19:00 20:00 Pulse 70 112 76 Resp 23 27 28 B/P (MAP) 144/64 (90) 152/72 (98) 152/64 (93) Pulse Ox 98 98 99 O2 Delivery BiPAP/CPAP BiPAP/CPAP BiPAP/CPAP Bi-pap 06/11/20 06/11/20 06/11/20 06/11/20 20:00 20:00 20:15 20:33 Temp 98.7 98.7 Pulse 70 62 Resp 24 B/P (MAP) 149/66 (93) 149/66 Pulse Ox 100 100 O2 Delivery BiPAP/CPAP [id number] O2 Flow Rate 40.0 //20 7//20 7/17/20 7/18/20 21:00 22:00 23:00 00:00 Pulse 78 80 77 Resp 27 36 30 B/P (MAP) 129/64 (85) 127/61 (83) 142/60 (87) Pulse Ox 98 98 99 O2 Delivery BiPAP/CPAP BiPAP/CPAP BiPAP/CPAP Bi-pap 18/20 7/18/20 7/18/20 7//20 00:00 00:00 00:40 01:00 Pulse 82 72 Resp 30 40 B/P (MAP) 148/62 (90) 154/82 (106) Pulse Ox 99 100 96 O2 Delivery BiPAP/CPAP [id number] BiPAP/CPAP O2 Flow Rate 40.0 06/12/20 7/18/20 7/18/20 7//20 02:00 02:15 02:45 03:00 Pulse 76 92 Resp 35 40 40 B/P (MAP) 138/72 (94) 154/67 (96) Pulse Ox 98 98 100 100 O2 Delivery BiPAP/CPAP BiPAP/CPAP BiPAP/CPAP O2 Flow Rate 40.0 /18/20 7/18/20 7/18/20 7/18/20 04:00 04:00 04:00 04:33 Pulse 92 Resp 50 B/P (MAP) 136/64 (88) Pulse Ox 100 99 O2 Delivery Bi-pap BiPAP/CPAP [id number] O2 Flow Rate 40.0 18/20 7/18/20 7/18/20 7/18/20 05:00 05:50 06:00 06:20 Pulse 73 77 Resp 24 35 30 30 B/P (MAP) 152/66 (94) 148/76 (100) Pulse Ox 100 100 99 99 O2 Delivery BiPAP/CPAP BiPAP/CPAP BiPAP/CPAP BiPAP/CPAP 7/18/20 7/18/20 7/18/20 7//20 07:00 08:03 08:04 08:04 Pulse 88 88 88 88 Resp 22 B/P (MAP) 133/64 (87) 133/64 133/64 133/64 Pulse Ox 99 O2 Delivery BiPAP/CPAP 06/12/20 06/12/20 08:52 10:15 Resp 20 Pulse Ox 99 97 O2 Delivery [id number] BiPAP/CPAP Intake and Output 06/11/20 06/11/20 06/12/20 15:00 23:00 07:00 Intake Total 600 ml Output Total 1250 ml 400 ml Balance 600 ml -1250 ml -400 ml Justicifation of Admission Dx: Justifications for Admission: Justification of Admission Dx: Yes Altered Mental Status: Altered Mental Status KENNEDI CARLSON MD Jun 12, 2020 10:27
[2020-06-12 11:04] LABS: BASO % 0 % (0-3); EOS # 0.1 x10^3/uL (0.0-0.7); EOS % 1 % (0-3); LYMPH # 0.3 x10^3/uL (1.0-4.8); LYMPH % 2 % (24-48); MEAN CORPUSCULAR HEMOGLOBIN 28 pg (25-35); MEAN CORPUSCULAR HGB CONC 32 g/dL (31-37); MEAN CORPUSCULAR VOLUME 87 fL (79-100); MONO # 0.4 x10^3/uL (0.0-1.1); MONO % 3 % (0-9); NEUT # 14.9 x10^3/uL (1.8-7.7); NEUT % 94 % (31-73); PLATELET COUNT 157 x10^3/uL (140-400); RED BLOOD COUNT 2.88 x10^6/uL (3.50-5.40); RED CELL DISTRIBUTION WIDTH 20.1 % (11.5-14.5); WHITE BLOOD COUNT 15.8 x10^3/uL (4.0-11.0)
[2020-06-12 11:10] LABS: ALBUMIN 1.7 g/dL (3.4-5.0); ALBUMIN/GLOBULIN RATIO 0.5 (1.0-1.7); CALCIUM 7.3 mg/dL (8.5-10.1); CREATININE 0.6 mg/dL (0.6-1.0); GFR 99.4; TOTAL BILIRUBIN 0.8 mg/dL (0.2-1.0); TOTAL PROTEIN 4.9 g/dL (6.4-8.2)
[2020-06-12 11:12] LABS: POTASSIUM 5.4 mmol/L (3.5-5.1)
--- NOTE | 2020-06-12 11:58 | PDOC ---
PROGRESS NOTES Chief Complaint Chief Complaint Acute hypoxic respiratory failure secondary to multifocal infiltrate/pleural effusions Sepsis, POA Hyperthyroidism likely Graves Dz Hypoglycemia,RESOLVED encephalopathy,resolved Severe protein-calorie malnutrition. DM2, HTN urinary retention, maldonado in place COVID + / - COVID-19 negative on 05/18/2020 and 05/19/2020. Remdesivir started 06/01 Pneumonia. sputum cx: Resp gerri. Off vanc/Zosyn/doxy. Off Augmentin CHF Severe protein-calorie malnutrition Gram-positive cocci bacteremia, 05/18/2020, 1 out of 2 bottles, ID MICROCOCCUS SPECIES, likely a contaminant. Bradycardia--holding BB for now Lower GI bleed Colitis plan: currently on bipap again. weaning steroids, abx restarted per Gen Sx given Colitis d dimer elevated, but CTA negative for PE.changed lovenox to daily but now GI bleed. continue PPI. hold lovenox .and ASA. apprec gen sx and GI involve ment. History of Present Illness History of Present Illness lower GI bleed per nurse. hold lovenox. continue PPI. wean steroids if able to but difficult given resp failure. GI consult. HD stable. check h and h Vitals Vitals Vital Signs Date Time Temp Pulse Resp B/P (MAP) Pulse Ox O2 Delivery O2 Flow Rate FiO2 06/12/20 10:45 22 98 BiPAP/CPAP 06/12/20 10:00 97 137/69 (91) 06/12/20 08:00 98.8 98.8 06/12/20 04:00 40.0 Physical Exam Physical Exam GENERAL: Lying down, resting quietly, on BiPAP HEENT: On BiPAP NECK: Supple. LUNGS: No increase work of breathing HEART: S1, S2. regular ABDOMEN: Obese, soft : Maldonado in place EXTREMITIES: Trace edema lower extremities bilaterally. No cyanosis DERMATOLOGIC: Warm, dry. No generalized rash. PIV General: Alert, Oriented X3 Heart: Other (tachy) Lungs: Clear Abdomen: Soft (reports tenderness in lower abdomen, no guarding or peritoneal signs, no distension) Extremities: No clubbing, No cyanosis Labs LABS Laboratory Tests Test 06/11/20 13:00 06/11/20 16:30 06/11/20 18:07 06/11/20 20:52 Glucose (Fingerstick) 85 mg/dL (70-99) 375 mg/dL (70-99) 195 mg/dL (70-99) Lactic Acid Level 1.2 mmol/L (0.4-2.0) Test 06/12/20 09:08 06/12/20 10:25 Glucose (Fingerstick) 112 mg/dL (70-99) White Blood Count 15.8 x10^3/uL (4.0-11.0) Red Blood Count 2.88 x10^6/uL (3.50-5.40) Hemoglobin 8.0 g/dL (12.0-15.5) Hematocrit 25.0 % (36.0-47.0) Mean Corpuscular Volume 87 fL (79-100) Mean Corpuscular Hemoglobin 28 pg (25-35) Mean Corpuscular Hemoglobin Concent 32 g/dL (31-37) Red Cell Distribution Width 20.1 % (11.5-14.5) Platelet Count 157 x10^3/uL (140-400) Neutrophils (%) (Auto) 94 % (31-73) Lymphocytes (%) (Auto) 2 % (24-48) Monocytes (%) (Auto) 3 % (0-9) Eosinophils (%) (Auto) 1 % (0-3) Basophils (%) (Auto) 0 % (0-3) Neutrophils # (Auto) 14.9 x10^3/uL (1.8-7.7) Lymphocytes # (Auto) 0.3 x10^3/uL (1.0-4.8) Monocytes # (Auto) 0.4 x10^3/uL (0.0-1.1) Eosinophils # (Auto) 0.1 x10^3/uL (0.0-0.7) Basophils # (Auto) 0.0 x10^3/uL (0.0-0.2) Sodium Level 145 mmol/L (136-145) Potassium Level 5.4 mmol/L (3.5-5.1) Chloride Level 107 mmol/L (98-107) Carbon Dioxide Level 31 mmol/L (21-32) Anion Gap 7 (6-14) Blood Urea Nitrogen 26 mg/dL (7-20) Creatinine 0.6 mg/dL (0.6-1.0) Estimated GFR (Cockcroft-Gault) 99.4 BUN/Creatinine Ratio 43 (6-20) Glucose Level 141 mg/dL (70-99) Lactic Acid Level 2.1 mmol/L (0.4-2.0) Calcium Level 7.3 mg/dL (8.5-10.1) Total Bilirubin 0.8 mg/dL (0.2-1.0) Aspartate Amino Transf (AST/SGOT) 45 U/L (15-37) Alanine Aminotransferase (ALT/SGPT) 34 U/L (14-59) Alkaline Phosphatase 146 U/L (46-116) Total Protein 4.9 g/dL (6.4-8.2) Albumin 1.7 g/dL (3.4-5.0) Albumin/Globulin Ratio 0.5 (1.0-1.7) Assessment and Plan Assessmemt and Plan Problems Medical Problems: (1) Altered mental status Status: Acute (2) Hypoglycemia Status: Acute (3) Hypothermia Status: Acute Comment Review of Relevant I have reviewed the following items kavya (where applicable) has been applied. Labs Laboratory Tests Test 06/10/20 17:15 06/10/20 21:22 06/11/20 08:39 06/11/20 09:15 Glucose (Fingerstick) 376 mg/dL (70-99) 290 mg/dL (70-99) 308 mg/dL (70-99) Hemoglobin 9.2 g/dL (12.0-15.5) Hematocrit 27.8 % (36.0-47.0) Mean Corpuscular Hemoglobin Concent 33 g/dL (31-37) Test 06/11/20 11:00 06/11/20 13:00 06/11/20 16:30 06/11/20 18:07 Lactic Acid Level 4.7 mmol/L (0.4-2.0) 1.2 mmol/L (0.4-2.0) Glucose (Fingerstick) 85 mg/dL (70-99) 375 mg/dL (70-99) Test 06/11/20 20:52 06/12/20 09:08 06/12/20 10:25 Glucose (Fingerstick) 195 mg/dL (70-99) 112 mg/dL (70-99) White Blood Count 15.8 x10^3/uL (4.0-11.0) Red Blood Count 2.88 x10^6/uL (3.50-5.40) Hemoglobin 8.0 g/dL (12.0-15.5) Hematocrit 25.0 % (36.0-47.0) Mean Corpuscular Volume 87 fL (79-100) Mean Corpuscular Hemoglobin 28 pg (25-35) Mean Corpuscular Hemoglobin Concent 32 g/dL (31-37) Red Cell Distribution Width 20.1 % (11.5-14.5) Platelet Count 157 x10^3/uL (140-400) Neutrophils (%) (Auto) 94 % (31-73) Lymphocytes (%) (Auto) 2 % (24-48) Monocytes (%) (Auto) 3 % (0-9) Eosinophils (%) (Auto) 1 % (0-3) Basophils (%) (Auto) 0 % (0-3) Neutrophils # (Auto) 14.9 x10^3/uL (1.8-7.7) Lymphocytes # (Auto) 0.3 x10^3/uL (1.0-4.8) Monocytes # (Auto) 0.4 x10^3/uL (0.0-1.1) Eosinophils # (Auto) 0.1 x10^3/uL (0.0-0.7) Basophils # (Auto) 0.0 x10^3/uL (0.0-0.2) Sodium Level 145 mmol/L (136-145) Potassium Level 5.4 mmol/L (3.5-5.1) Chloride Level 107 mmol/L (98-107) Carbon Dioxide Level 31 mmol/L (21-32) Anion Gap 7 (6-14) Blood Urea Nitrogen 26 mg/dL (7-20) Creatinine 0.6 mg/dL (0.6-1.0) Estimated GFR (Cockcroft-Gault) 99.4 BUN/Creatinine Ratio 43 (6-20) Glucose Level 141 mg/dL (70-99) Lactic Acid Level 2.1 mmol/L (0.4-2.0) Calcium Level 7.3 mg/dL (8.5-10.1) Total Bilirubin 0.8 mg/dL (0.2-1.0) Aspartate Amino Transf (AST/SGOT) 45 U/L (15-37) Alanine Aminotransferase (ALT/SGPT) 34 U/L (14-59) Alkaline Phosphatase 146 U/L (46-116) Total Protein 4.9 g/dL (6.4-8.2) Albumin 1.7 g/dL (3.4-5.0) Albumin/Globulin Ratio 0.5 (1.0-1.7) Laboratory Tests Test 06/11/20 13:00 06/11/20 16:30 06/11/20 18:07 06/11/20 20:52 Glucose (Fingerstick) 85 mg/dL (70-99) 375 mg/dL (70-99) 195 mg/dL (70-99) Lactic Acid Level 1.2 mmol/L (0.4-2.0) Test 06/12/20 09:08 06/12/20 10:25 Glucose (Fingerstick) 112 mg/dL (70-99) White Blood Count 15.8 x10^3/uL (4.0-11.0) Red Blood Count 2.88 x10^6/uL (3.50-5.40) Hemoglobin 8.0 g/dL (12.0-15.5) Hematocrit 25.0 % (36.0-47.0) Mean Corpuscular Volume 87 fL (79-100) Mean Corpuscular Hemoglobin 28 pg (25-35) Mean Corpuscular Hemoglobin Concent 32 g/dL (31-37) Red Cell Distribution Width 20.1 % (11.5-14.5) Platelet Count 157 x10^3/uL (140-400) Neutrophils (%) (Auto) 94 % (31-73) Lymphocytes (%) (Auto) 2 % (24-48) Monocytes (%) (Auto) 3 % (0-9) Eosinophils (%) (Auto) 1 % (0-3) Basophils (%) (Auto) 0 % (0-3) Neutrophils # (Auto) 14.9 x10^3/uL (1.8-7.7) Lymphocytes # (Auto) 0.3 x10^3/uL (1.0-4.8) Monocytes # (Auto) 0.4 x10^3/uL (0.0-1.1) Eosinophils # (Auto) 0.1 x10^3/uL (0.0-0.7) Basophils # (Auto) 0.0 x10^3/uL (0.0-0.2) Sodium Level 145 mmol/L (136-145) Potassium Level 5.4 mmol/L (3.5-5.1) Chloride Level 107 mmol/L (98-107) Carbon Dioxide Level 31 mmol/L (21-32) Anion Gap 7 (6-14) Blood Urea Nitrogen 26 mg/dL (7-20) Creatinine 0.6 mg/dL (0.6-1.0) Estimated GFR (Cockcroft-Gault) 99.4 BUN/Creatinine Ratio 43 (6-20) Glucose Level 141 mg/dL (70-99) Lactic Acid Level 2.1 mmol/L (0.4-2.0) Calcium Level 7.3 mg/dL (8.5-10.1) Total Bilirubin 0.8 mg/dL (0.2-1.0) Aspartate Amino Transf (AST/SGOT) 45 U/L (15-37) Alanine Aminotransferase (ALT/SGPT) 34 U/L (14-59) Alkaline Phosphatase 146 U/L (46-116) Total Protein 4.9 g/dL (6.4-8.2) Albumin 1.7 g/dL (3.4-5.0) Albumin/Globulin Ratio 0.5 (1.0-1.7) Microbiology 05/26/20 Gram Stain Evaluation - Final, Complete 05/26/20 Respiratory Culture - Final, Complete 05/24/20 Blood Culture - Final, Complete NO GROWTH AFTER 5 DAYS 05/18/20 Urine Culture - Final, Complete Medications Current Medications Sodium Chloride 1,000 ml @ 1,000 mls/hr 1X ONCE IV Last administered on 05/18/20at 09:29; Start 05/18/20 at 09:15; Stop 05/18/20 at 10:14; Status DC Ceftriaxone Sodium (Rocephin) 1 gm 1X ONCE IVP Last administered on 05/18/20at 09:28; Start 05/18/20 at 09:15; Stop 05/18/20 at 09:16; Status DC Ondansetron HCl (Zofran) 4 mg PRN Q8HRS PRN IV NAUSEA/VOMITING; Start 05/18/20 at 10:15; Stop 05/18/20 at 16:24; Status DC Acetaminophen (Tylenol) 650 mg PRN Q4HRS PRN PO FEVER > 100.3'F; Start 05/18/20 at 10:15; Stop 05/18/20 at 16:24; Status DC Ceftriaxone Sodium (Rocephin) 1 gm Q24H IVP Last administered on 05/24/20at 09:09; Start 05/19/20 at 09:00; Stop 05/24/20 at 18:10; Status DC Sodium Chloride (Normal Saline Flush) 3 ml QSHIFT PRN IV AFTER MEDS AND BLOOD DRAWS; Start 05/18/20 at 16:30 Sodium Chloride 1,000 ml @ 85 mls/hr [id number] IV Last administered on 05/24/20at 18:31; Start 05/18/20 at 16:20; Stop 05/25/20 at 09:44; Status DC Ondansetron HCl (Zofran) 4 mg PRN Q4HRS PRN IV NAUSEA/VOMITING; Start 05/18/20 at 16:30 Acetaminophen (Tylenol) 650 mg PRN Q4HRS PRN PO TEMP OVER 100.4F OR MILD PAIN Last administered on 06/10/20at 12:33; Start 05/18/20 at 16:30 Acetaminophen (Tylenol Supp) 650 mg PRN Q4HRS PRN MO TEMP OVER 100.4F OR MILD PAIN; Start 05/18/20 at 16:30 Sodium Monofluorophosphate (Fleet Adult) 133 ml PRN DAILY PRN MO CONSTIPATION Last administered on 06/12/20at 11:09; Start 05/18/20 at 16:30 Docusate Sodium (Colace) 100 mg PRN BID PRN PO HARD STOOLS Last administered on 06/10/20at 22:32; Start 05/18/20 at 16:30 Albuterol Sulfate (Ventolin Neb Soln) 2.5 mg PRN Q4HRS PRN NEB SHORTNESS OF BREATH Last administered on 05/21/20at 18:14; Start 05/18/20 at 16:30; Stop 05/31/20 at 16:19; Status DC Guaifenesin (Robitussin) 200 mg PRN Q4HRS PRN PO COUGH Last administered on 05/23/20at 20:00; Start 05/18/20 at 16:30 Enoxaparin Sodium (Lovenox 40mg Syringe) 40 mg Q24H SQ Last administered on 05/31/20 17:03; Start 05/18/20 at 17:00; Stop 06/01/20 at 10:27; Status DC Aspirin (Ecotrin) 81 mg DAILY PO Last administered on 06/11/20at 08:29; Start at 09:00; Stop 06/11/20 at 13:19; Status DC Metoprolol Tartrate (Lopressor) 50 mg BID PO Last administered on 05/21/20at 09:16; Start 05/19/20 at 09:00; Stop 05/21/20 at 15:45; Status DC Diclofenac Sodium (Voltaren) 75 mg BID PO Last administered on 06/03/20at 20:29; Start 05/19/20 at 10:00; Stop 06/04/20 at 08:03; Status DC Hydralazine HCl (Apresoline) 100 mg BID PO Last administered on 05/21/20at 09:15; Start 05/19/20 at 09:00; Stop 05/21/20 at 15:45; Status DC Lisinopril (Prinivil) 20 mg DAILY PO Last administered on 05/21/20at 09:16; Start 05/19/20 at 10:00; Stop 05/21/20 at 15:45; Status DC Pantoprazole Sodium (Protonix) 40 mg DAILYAC PO Last administered on 06/11/20at 08:29; Start 05/19/20 at 10:00; Stop 06/11/20 at 11:58; Status DC Atorvastatin Calcium (Lipitor) 40 mg QHS PO Last administered on 06/11/20at 20:34; Start 05/19/20 at 21:00 Hydrochlorothiazide (Hydrodiuril) 25 mg DAILY PO Last administered on 05/23/20at 08:59; Start 05/19/20 at 10:00; Stop 05/23/20 at 10:22; Status DC Lactobacillus Rhamnosus (Culturelle) 1 cap BID PO Last administered on 06/12/20at 08:04; Start 05/19/20 at 21:00 Insulin Human Lispro (HumaLOG) 0-7 UNITS TIDWMEALS SQ Last administered on 7/16/20at 12:35; Start 05/19/20 at 17:00; Stop 06/10/20 at 17:33; Status DC Dextrose (Dextrose 50%-Water Syringe) 12.5 gm PRN Q15MIN PRN IV SEE COMMENTS Last administered on 06/04/20at 06:52; Start 05/19/20 at 14:15 Methimazole (Tapazole) 5 mg BID PO Last administered on 06/12/20at 08:03; Start 05/20/20 at 10:00 Insulin Glargine (Lantus Syringe) 5 unit DAILY SQ Last administered on 05/22/20at 09:15; Start 05/21/20 at 09:00; Stop 05/22/20 at 21:05; Status DC Doxycycline Hyclate (Vibra-Tab) 100 mg BID PO Last administered on 05/28/20at 08:53; Start 05/21/20 at 15:00; Stop 05/28/20 at 15:02; Status DC Furosemide (Lasix) 20 mg 1X ONCE IVP Last administered on 05/21/20at 17:05; Start 05/21/20 at 17:00; Stop 05/21/20 at 17:01; Status DC Sterile Water (WATER for RESP) 1,000 ml CONT PRN INH VIA VAPOTHERM DEVICE Last administered on 05/23/20at 16:26; Start 05/21/20 at 17:15; Stop 05/30/20 at 12:58; Status DC Albuterol Sulfate (Ventolin Neb Soln) 2.5 mg Q4HRS NEB Last administered on 05/30/20at 15:45; Start 05/21/20 at 20:00; Stop 05/31/20 at 16:19; Status DC Vancomycin HCl (Vanco Per Pharmacy) 1 each PRN DAILY PRN MC SEE COMMENTS Last administered on 05/25/20at 23:52; Start 05/22/20 at 09:00; Stop 05/27/20 at 16:29; Status DC Vancomycin HCl 2 gm/Sodium Chloride 500 ml @ 250 mls/hr 1X ONCE IV Last administered on 05/22/20at 09:05; Start 05/22/20 at 09:00; Stop 05/22/20 at 10:59; Status DC Vancomycin HCl 1.25 gm/Sodium Chloride 250 ml @ 167 mls/hr Q24H IV Last ad ministered on 05/23/20at 09:00; Start 05/23/20 at 09:00; Stop 05/24/20 at 10:05; Status DC Vancomycin HCl (Vancomycin Trough Level) 1 each 1X ONCE MC Last administered on 05/24/20at 08:30; Start 05/24/20 at 08:30; Stop 05/24/20 at 08:31; Status DC Methylprednisolone Sodium Succinate (SOLU-Medrol 125MG VIAL) 80 mg Q8HRS IV Last administered on 05/27/20at 06:04; Start 05/22/20 at 14:00; Stop 05/27/20 at 12:02; Status DC Insulin Glargine (Lantus Syringe) 10 unit BID SQ Last administered on 05/23/20at 09:11; Start 05/22/20 at 21:00; Stop 05/23/20 at 20:17; Status DC Metoprolol Tartrate (Lopressor) 50 mg BID PO Last administered on 06/08/20at 08:23; Start 05/23/20 at 10:30; Stop 06/08/20 at 10:43; Status DC Hydrochlorothiazide (Microzide) 12.5 mg DAILY PO Last administered on 06/12/20 08:06; Start 05/24/20 at 09:00 Potassium Chloride (Klor-Con) 40 meq Q2H PO Last administered on 05/23/20at 14:58; Start 05/23/20 at 10:30; Stop 05/23/20 at 14:31; Status DC Lisinopril (Prinivil) 40 mg DAILY PO Last administered on 06/12/20at 08:03; Start 05/23/20 at 10:30 Hydralazine HCl (Apresoline) 100 mg BID PO Last administered on 06/12/20at 08:04; Start 05/23/20 at 10:30 Insulin Glargine (Lantus Syringe) 10 unit BID SQ Last administered on 05/24/20at 09:14; Start 05/23/20 at 21:00; Stop 05/24/20 at 11:28; Status DC Vancomycin HCl 1.25 gm/Sodium Chloride 250 ml @ 167 mls/hr Q12H IV Last administered on 05/27/20at 08:21; Start 05/24/20 at 10:30; Stop 05/27/20 at 16:26; Status DC Vancomycin HCl (Vancomycin Trough Level) 1 each 1X ONCE MC Last administered on 05/25/20at 22:00; Start 05/25/20 at 22:00; Stop 05/25/20 at 22:01; Status DC Insulin Glargine (Lantus Syringe) 12 unit BID SQ ; Start 05/24/20 at 21:00; Stop 05/24/20 at 17:27; Status DC Insulin Glargine (Lantus Syringe) 15 unit BID SQ Last administered on 05/25/20at 08:19; Start 05/24/20 at 21:00; Stop 05/25/20 at 09:47; Status DC Insulin Human Lispro (HumaLOG) 7 units 1X ONCE SQ Last administered on 05/24/20at 18:01; Start 05/24/20 at 17:30; Stop 05/24/20 at 17:31; Status DC Piperacillin Sod/ Tazobactam Sod 3.375 gm/Sodium Chloride 50 ml @ 100 mls/hr Q6HRS IV Last administered on 05/28/20at 12:09; Start 05/24/20 at 18:30; Stop 05/28/20 at 15:01; Status DC Insulin Human Lispro (HumaLOG) 11 units 1X SQ ; Start 05/24/20 at 21:30; Status Cancel Insulin Human Lispro (HumaLOG) 11 units 1X ONCE SQ Last administered on 05/24/20at 22:25; Start 05/24/20 at 22:00; Stop 05/24/20 at 22:01; Status DC Furosemide (Lasix) 20 mg 1X ONCE IVP Last administered on 05/25/20at 11:12; St art 05/25/20 at 10:00; Stop 05/25/20 at 10:01; Status DC Insulin Glargine (Lantus Syringe) 18 unit BID SQ Last administered on 05/27/20at 08:33; Start 05/25/20 at 21:00; Stop 05/27/20 at 12:00; Status DC Midazolam HCl (Versed) 2 mg 1X ONCE IV ; Start 05/25/20 at 10:30; Stop 05/25/20 at 10:31; Status Cancel Fentanyl Citrate (Fentanyl 2ml Vial) 50 mcg 1X ONCE IM ; Start 05/25/20 at 10:30; Stop 05/25/20 at 10:31; Status Cancel Hydralazine HCl (Apresoline Inj) 10 mg PRN Q4HRS PRN IVP ELEVATED BP, SEE COMMENTS Last administered on 06/10/20at 01:08; Start 05/25/20 at 16:15 Potassium Chloride (Klor-Con) 40 meq 1X ONCE PO Last administered on 05/26/20at 18:43; Start 05/26/20 at 18:30; Stop 05/26/20 at 18:31; Status DC Insulin Glargine (Lantus Syringe) 22 unit BID SQ Last administered on 05/29/20at 08:24; Start 05/27/20 at 21:00; Stop 05/29/20 at 12:14; Status DC Methylprednisolone Sodium Succinate (SOLU-Medrol 125MG VIAL) 40 mg Q12HR IV Last administered on 05/28/20at 08:52; Start 05/27/20 at 19:00; Stop 05/28/20 at 13: 37; Status DC Nystatin (Nystatin Oral Susp) 5 ml [id number] Last administered on 06/12/20at 08:04; Start 05/27/20 at 17:00 Insulin Human Lispro (HumaLOG) 20 units 1X ONCE SQ Last administered on 05/27/20at 17:32; Start 05/27/20 at 17:30; Stop 05/27/20 at 17:31; Status DC Methylprednisolone Sodium Succinate (SOLU-Medrol 40MG VIAL) 40 mg Q12HR IV Last administered on 05/30/20at 08:34; Start 05/28/20 at 21:00; Stop 05/30/20 at 14:10; Status DC Amoxicillin/ Clavulanate Potassium (Augmentin 875/ 125mg) 1 tab BID PO Last administered on 05/31/20at 19:53; Start 05/28/20 at 21:00; Stop 05/31/20 at 21:01; Status DC Amlodipine Besylate (Norvasc) 2.5 mg DAILY PO Last administered on 06/09/20at 08:40; Start 05/29/20 at 11:45; Stop 06/10/20 at 02:44; Status DC Furosemide (Lasix) 20 mg 1X ONCE PO Last administered on 05/29/20at 12:40; Start 05/29/20 at 12:30; Stop 05/29/20 at 12:31; Status DC Potassium Chloride (Klor-Con) 20 meq 1X ONCE PO Last administered on 05/29/20at 12:40; Start 05/29/20 at 12:30; Stop 05/29/20 at 12:31; Status DC Insulin Glargine (Lantus Syringe) 25 unit BID SQ Last administered on 06/04/20at 07:58; Start 05/29/20 at 21:00; Stop 06/04/20 at 09:20; Status DC Furosemide (Lasix) 40 mg 1X ONCE IVP Last administered on 05/30/20at 11:47; Start 05/30/20 at 11:15; Stop 05/30/20 at 11:16; Status DC Iohexol (Omnipaque 350 Mg/ml) 100 ml 1X ONCE IV Last administered on 05/30/20at 12:00; Start 05/30/20 at 12:00; Stop 05/30/20 at 12:01; Status DC Info (CONTRAST GIVEN -- Rx MONITORING) 1 each PRN DAILY PRN MC SEE COMMENTS; Start 05/30/20 at 12:15; Stop 06/01/20 at 12:14; Status DC Sterile Water (WATER for RESP) 1,000 ml CONT PRN INH VIA VAPOTHERM DEVICE Last administered on 06/10/20at 18:28; Start 05/30/20 at 13:00 Methylprednisolone Sodium Succinate (SOLU-Medrol 125MG VIAL) 125 mg Q12HR IV Last administered on 06/09/20at 08:41; Start 05/30/20 at 14:15; Stop 06/09/20 at 13:11; Status DC Enoxaparin Sodium (Lovenox 40mg Syringe) 40 mg BID SQ Last administered on 06/10/20at 08:15; Start 06/01/20 at 21:00; Stop 06/10/20 at 13:46; Status DC Non-Formulary Medication 1 ea/ Sodium Chloride 210 ml @ 210 mls/hr 1X ONCE IV Last administered on 06/01/20at 17:11; Start 06/01/20 at 16:30; Stop 06/01/20 at 17:29; Status DC Non-Formulary Medication 1 ea/ Sodium Chloride 230 ml @ 460 mls/hr DAILY IV Last administered on 06/05/20at 17:38; Start 06/02/20 at 09:00; Stop 06/05/20 at 09:29; Status DC Potassium Chloride (Klor-Con) 40 meq 1X ONCE PO Last administered on 06/03/20at 09:51; Start 06/03/20 at 08:00; Stop 06/03/20 at 08:01; Status DC Diclofenac Sodium (Voltaren) 75 mg BID PO ; Start 06/04/20 at 08:03; Stop 06/04/20 at 08:04; Status DC Diclofenac Sodium (Voltaren) 75 mg BID PO Last administered on 06/10/20at 21:15; Start 06/04/20 at 09:00; Stop 06/11/20 at 13:19; Status DC Insulin Glargine (Lantus Syringe) 30 unit QHS SQ Last administered on 06/04/20at 21:14; Start 06/04/20 at 21:00; Stop 06/05/20 at 10:25; Status DC Insulin Glargine (Lantus Syringe) 15 unit QHS SQ Last administered on 06/09/20at 21:29; Start 06/05/20 at 21:00; Stop 06/10/20 at 13:46; Status DC Furosemide (Lasix) 40 mg 1X ONCE IVP Last administered on 06/08/20at 11:14; Start 06/08/20 at 11:00; Stop 06/08/20 at 11:02; Status DC Methylprednisolone Sodium Succinate (SOLU-Medrol 125MG VIAL) 60 mg BID IV Last administered on 06/11/20at 08:29; Start 06/09/20 at 21:00; Stop 06/11/20 at 15:22; Status DC Amlodipine Besylate (Norvasc) 10 mg 1X ONCE PO Last administered on 06/10/20at 03:16; Start 06/10/20 at 03:00; Stop 06/10/20 at 03:01; Status DC Amlodipine Besylate (Norvasc) 10 mg DAILY PO Last administered on 06/12/20at 08:04; Start 06/10/20 at 09:00 Hydralazine HCl (Apresoline Inj) 10 mg 1X ONCE IVP Last administered on 06/10/20at 03:16; Start 06/10/20 at 03:00; Stop 06/10/20 at 03:01; Status DC Enoxaparin Sodium (Lovenox 40mg Syringe) 40 mg DAILY SQ Last administered on 06/11/20at 08:28; Start 06/11/20 at 09:00; Stop 06/11/20 at 09:09; Status DC Insulin Glargine (Lantus Syringe) 20 unit QHS SQ Last administered on 06/11/20at 21:25; Start 06/10/20 at 13:45 Insulin Human Lispro (HumaLOG) 0-9 UNITS TIDWMEALS SQ Last administered on 06/11/20at 09:04; Start 06/10/20 at 17:40; Stop 06/11/20 at 08:00; Status DC Pantoprazole Sodium (PROTONIX VIAL for IV PUSH) 40 mg DAILYAC IVP Last administered on 06/12/20at 08:04; Start 06/12/20 at 07:30 Insulin Human Lispro (HumaLOG) 0-9 UNITS TIDWMEALS SQ Last administered on 06/11/20at 17:00; Start 06/11/20 at 13:00 Iohexol (Omnipaque 300 Mg/ml) 75 ml 1X ONCE IV Last administered on 06/11/20at 14:50; Start 06/11/20 at 13:15; Stop 06/11/20 at 13:16; Status DC Info (CONTRAST GIVEN -- Rx MONITORING) 1 each PRN DAILY PRN MC SEE COMMENTS; Start 06/11/20 at 13:15; Stop 06/13/20 at 13:14 Morphine Sulfate (Morphine Sulfate) 2 mg PRN Q2HR PRN IV PAIN Last administered on 06/12/20at 10:15; Start 06/11/20 at 15:15 Methylprednisolone Sodium Succinate (SOLU-Medrol 125MG VIAL) 60 mg DAILY IV Last administered on 06/12/20at 08:05; Start 06/12/20 at 09:00 Piperacillin Sod/ Tazobactam Sod 2.25 gm/Sodium Chloride 50 ml @ 100 mls/hr Q8HRS IV Last administered on 06/12/20at 05:49; Start 06/11/20 at 17:00 Lactulose (Lactulose) 30 gm 1X ONCE PO Last administered on 06/11/20at 20:30; Start 06/11/20 at 20:00; Stop 06/11/20 at 20:01; Status DC Polyethylene Glycol (miraLAX PACKET) 17 gm [id number] PO Last administered on 06/11/20at 20:30; Start 06/11/20 at 20:00 Active Scripts Active Reported Actos (Pioglitazone Hcl) 45 Mg Tablet 1 Tab PO DAILY 30 Days Diclofenac Sodium 75 Mg Tablet.dr 1 Tab PO BID Klor-Con 10 (Potassium Chloride) 10 Meq Tablet.er 1 Tab PO DAILY 30 Days Metformin Hcl 1,000 Mg Tablet 1,000 Mg PO BIDWMEALS Omeprazole 20 Mg Capsule.dr 1 Cap PO DAILY Lisinopril-Hctz 20-25 Mg Tab (Lisinopril/Hydrochlorothiazide) 1 Each Tablet 1 Tab PO DAILY Aspirin Ec (Aspirin) 81 Mg Tablet.dr 1 Tab PO DAILY Hydralazine Hcl 100 Mg Tablet 1 Tab PO BID Metoprolol Tartrate 50 Mg Tablet 1 Tab PO BID Rosuvastatin Calcium 10 Mg Tablet 10 Mg PO DAILY Vitals/I & O Vital Sign - Last 24 Hours 06/11/20 06/11/20 06/11/20 06/11/20 11:59 12:00 12:00 12:00 Pulse 76 Resp 38 B/P (MAP) 113/55 (74) Pulse Ox 95 29 O2 Delivery VAPOTHERM BiPAP/CPAP O2 Flow Rate 40.0 40.0 40.0 06/11/20 06/11/20 06/11/20 06/11/20 13:00 14:00 15:00 15:41 Pulse 96 70 70 Resp 38 38 38 B/P (MAP) 114/55 (74) 141/73 (95) 141/73 (95) Pulse Ox 86 96 96 98 O2 Delivery BiPAP/CPAP BiPAP/CPAP BiPAP/CPAP [id number] 06/11/20 06/11/20 06/11/20 06/11/20 16:00 16:00 16:00 17:00 Pulse 70 70 Resp 27 23 B/P (MAP) 145/70 (95) 144/64 (90) Pulse Ox 98 98 O2 Delivery Bi-pap BiPAP/CPAP BiPAP/CPAP O2 Flow Rate 40.0 40.0 06/11/20 06/11/20 06/11/20 06/11/20 18:00 19:00 20:00 20:00 Temp 98.7 98.7 Pulse 112 76 70 Resp 27 28 24 B/P (MAP) 152/72 (98) 152/64 (93) 149/66 (93) Pulse Ox 98 99 100 O2 Delivery BiPAP/CPAP BiPAP/CPAP Bi-pap BiPAP/CPAP 06/11/20 06/11/20 06/11/20 06/11/20 20:00 20:15 20:33 21:00 Pulse 62 78 Resp 27 B/P (MAP) 149/66 129/64 (85) Pulse Ox 100 98 O2 Delivery [id number] BiPAP/CPAP O2 Flow Rate 40.0 06/11/20 06/11/20 06/12/20 06/12/20 22:00 23:00 00:00 00:00 Pulse 80 77 Resp 36 30 B/P (MAP) 127/61 (83) 142/60 (87) Pulse Ox 98 99 O2 Delivery BiPAP/CPAP BiPAP/CPAP Bi-pap O2 Flow Rate 40.0 06/12/20 06/12/20 06/12/20 06/12/20 00:00 00:40 01:00 02:00 Pulse 82 72 76 Resp 30 40 35 B/P (MAP) 148/62 (90) 154/82 (106) 138/72 (94) Pulse Ox 99 100 96 98 O2 Delivery BiPAP/CPAP [id number] BiPAP/CPAP BiPAP/CPAP 06/12/20 06/12/20 06/12/20 06/12/20 02:15 02:45 03:00 04:00 Pulse 92 Resp 40 40 B/P (MAP) 154/67 (96) Pulse Ox 98 100 100 O2 Delivery BiPAP/CPAP BiPAP/CPAP Bi-pap O2 Flow Rate 40.0 06/12/20 06/12/20/06/12/20 04:00 04:00 04:33 05:00 Pulse 92 73 Resp 50 24 B/P (MAP) 136/64 (88) 152/66 (94) Pulse Ox 100 99 100 O2 Delivery BiPAP/CPAP [id number] BiPAP/CPAP O2 Flow Rate 40.0 06/12/20 06/12/20 06/12/20 7/18/20 05:50 06:00 06:20 07:00 Pulse 77 88 Resp 35 30 30 22 B/P (MAP) 148/76 (100) 133/64 (87) Pulse Ox 100 99 99 99 O2 Delivery BiPAP/CPAP BiPAP/CPAP BiPAP/CPAP BiPAP/CPAP 06/12/20 06/12/20 06/12/20 06/12/20 08:00 08:00 08:03 08:04 Temp 98.8 98.8 Pulse 91 88 88 Resp 20 B/P (MAP) 112/61 (78) 133/64 133/64 Pulse Ox 99 O2 Delivery Bi-pap BiPAP/CPAP 06/12/20 06/12/20 06/12/20 06/12/20 08:04 08:52 09:00 10:00 Pulse 88 95 97 Resp 24 24 B/P (MAP) 133/64 83/49 (60) 137/69 (91) Pulse Ox 99 96 96 O2 Delivery [id number] BiPAP/CPAP BiPAP/CPAP 06/12/20 06/12/20 10:15 10:45 Resp 20 22 Pulse Ox 97 98 O2 Delivery BiPAP/CPAP BiPAP/CPAP Intake and Output 06/11/20 06/11/20 06/12/20 15:00 23:00 07:00 Intake Total 600 ml Output Total 1250 ml 400 ml Balance 600 ml -1250 ml -400 ml Justicifation of Admission Dx: Justifications for Admission: Justification of Admission Dx: Yes Altered Mental Status: Altered Mental Status SUYAPA MCCORMICK MD Jun 12, 2020 11:58
--- NOTE | 2020-06-12 12:36 | PDOC ---
G I PROGRESS NOTE Reason for Follow-up Recal bleed/constipation Subjective BMS with laxatives and enemas/ bleedings is slowing Physical Exam Lungs coarse BS CV S1 S2 ABD +BS, softer, +BS Review of Relevant I have reviewed the following items kavya (where applicable) has been applied. Labs Laboratory Tests Test 06/10/20 17:15 06/10/20 21:22 06/11/20 08:39 06/11/20 09:15 Glucose (Fingerstick) 376 mg/dL (70-99) 290 mg/dL (70-99) 308 mg/dL (70-99) Hemoglobin 9.2 g/dL (12.0-15.5) Hematocrit 27.8 % (36.0-47.0) Mean Corpuscular Hemoglobin Concent 33 g/dL (31-37) Test 06/11/20 11:00 06/11/20 13:00 06/11/20 16:30 06/11/20 18:07 Lactic Acid Level 4.7 mmol/L (0.4-2.0) 1.2 mmol/L (0.4-2.0) Glucose (Fingerstick) 85 mg/dL (70-99) 375 mg/dL (70-99) Test 06/11/20 20:52 06/12/20 09:08 06/12/20 10:25 Glucose (Fingerstick) 195 mg/dL (70-99) 112 mg/dL (70-99) White Blood Count 15.8 x10^3/uL (4.0-11.0) Red Blood Count 2.88 x10^6/uL (3.50-5.40) Hemoglobin 8.0 g/dL (12.0-15.5) Hematocrit 25.0 % (36.0-47.0) Mean Corpuscular Volume 87 fL (79-100) Mean Corpuscular Hemoglobin 28 pg (25-35) Mean Corpuscular Hemoglobin Concent 32 g/dL (31-37) Red Cell Distribution Width 20.1 % (11.5-14.5) Platelet Count 157 x10^3/uL (140-400) Neutrophils (%) (Auto) 94 % (31-73) Lymphocytes (%) (Auto) 2 % (24-48) Monocytes (%) (Auto) 3 % (0-9) Eosinophils (%) (Auto) 1 % (0-3) Basophils (%) (Auto) 0 % (0-3) Neutrophils # (Auto) 14.9 x10^3/uL (1.8-7.7) Lymphocytes # (Auto) 0.3 x10^3/uL (1.0-4.8) Monocytes # (Auto) 0.4 x10^3/uL (0.0-1.1) Eosinophils # (Auto) 0.1 x10^3/uL (0.0-0.7) Basophils # (Auto) 0.0 x10^3/uL (0.0-0.2) Sodium Level 145 mmol/L (136-145) Potassium Level 5.4 mmol/L (3.5-5.1) Chloride Level 107 mmol/L (98-107) Carbon Dioxide Level 31 mmol/L (21-32) Anion Gap 7 (6-14) Blood Urea Nitrogen 26 mg/dL (7-20) Creatinine 0.6 mg/dL (0.6-1.0) Estimated GFR (Cockcroft-Gault) 99.4 BUN/Creatinine Ratio 43 (6-20) Glucose Level 141 mg/dL (70-99) Lactic Acid Level 2.1 mmol/L (0.4-2.0) Calcium Level 7.3 mg/dL (8.5-10.1) Total Bilirubin 0.8 mg/dL (0.2-1.0) Aspartate Amino Transf (AST/SGOT) 45 U/L (15-37) Alanine Aminotransferase (ALT/SGPT) 34 U/L (14-59) Alkaline Phosphatase 146 U/L (46-116) Total Protein 4.9 g/dL (6.4-8.2) Albumin 1.7 g/dL (3.4-5.0) Albumin/Globulin Ratio 0.5 (1.0-1.7) Laboratory Tests Test 06/11/20 13:00 06/11/20 16:30 06/11/20 18:07 06/11/20 20:52 Glucose (Fingerstick) 85 mg/dL (70-99) 375 mg/dL (70-99) 195 mg/dL (70-99) Lactic Acid Level 1.2 mmol/L (0.4-2.0) Test 06/12/20 09:08 06/12/20 10:25 Glucose (Fingerstick) 112 mg/dL (70-99) White Blood Count 15.8 x10^3/uL (4.0-11.0) Red Blood Count 2.88 x10^6/uL (3.50-5.40) Hemoglobin 8.0 g/dL (12.0-15.5) Hematocrit 25.0 % (36.0-47.0) Mean Corpuscular Volume 87 fL (79-100) Mean Corpuscular Hemoglobin 28 pg (25-35) Mean Corpuscular Hemoglobin Concent 32 g/dL (31-37) Red Cell Distribution Width 20.1 % (11.5-14.5) Platelet Count 157 x10^3/uL (140-400) Neutrophils (%) (Auto) 94 % (31-73) Lymphocytes (%) (Auto) 2 % (24-48) Monocytes (%) (Auto) 3 % (0-9) Eosinophils (%) (Auto) 1 % (0-3) Basophils (%) (Auto) 0 % (0-3) Neutrophils # (Auto) 14.9 x10^3/uL (1.8-7.7) Lymphocytes # (Auto) 0.3 x10^3/uL (1.0-4.8) Monocytes # (Auto) 0.4 x10^3/uL (0.0-1.1) Eosinophils # (Auto) 0.1 x10^3/uL (0.0-0.7) Basophils # (Auto) 0.0 x10^3/uL (0.0-0.2) Sodium Level 145 mmol/L (136-145) Potassium Level 5.4 mmol/L (3.5-5.1) Chloride Level 107 mmol/L (98-107) Carbon Dioxide Level 31 mmol/L (21-32) Anion Gap 7 (6-14) Blood Urea Nitrogen 26 mg/dL (7-20) Creatinine 0.6 mg/dL (0.6-1.0) Estimated GFR (Cockcroft-Gault) 99.4 BUN/Creatinine Ratio 43 (6-20) Glucose Level 141 mg/dL (70-99) Lactic Acid Level 2.1 mmol/L (0.4-2.0) Calcium Level 7.3 mg/dL (8.5-10.1) Total Bilirubin 0.8 mg/dL (0.2-1.0) Aspartate Amino Transf (AST/SGOT) 45 U/L (15-37) Alanine Aminotransferase (ALT/SGPT) 34 U/L (14-59) Alkaline Phosphatase 146 U/L (46-116) Total Protein 4.9 g/dL (6.4-8.2) Albumin 1.7 g/dL (3.4-5.0) Albumin/Globulin Ratio 0.5 (1.0-1.7) Microbiology 05/26/20 Gram Stain Evaluation - Final, Complete 05/26/20 Respiratory Culture - Final, Complete 05/24/20 Blood Culture - Final, Complete NO GROWTH AFTER 5 DAYS 05/18/20 Urine Culture - Final, Complete Medications Current Medications Sodium Chloride 1,000 ml @ 1,000 mls/hr 1X ONCE IV Last administered on 05/18/20at 09:29; Start 05/18/20 at 09:15; Stop 05/18/20 at 10:14; Status DC Ceftriaxone Sodium (Rocephin) 1 gm 1X ONCE IVP Last administered on 05/18/20at 09:28; Start 05/18/20 at 09:15; Stop 05/18/20 at 09:16; Status DC Ondansetron HCl (Zofran) 4 mg PRN Q8HRS PRN IV NAUSEA/VOMITING; Start 05/18/20 at 10:15; Stop 05/18/20 at 16:24; Status DC Acetaminophen (Tylenol) 650 mg PRN Q4HRS PRN PO FEVER > 100.3'F; Start 05/18/20 at 10:15; Stop 05/18/20 at 16:24; Status DC Ceftriaxone Sodium (Rocephin) 1 gm Q24H IVP Last administered on 05/24/20at 09:09; Start 05/19/20 at 09:00; Stop 05/24/20 at 18:10; Status DC Sodium Chloride (Normal Saline Flush) 3 ml QSHIFT PRN IV AFTER MEDS AND BLOOD DRAWS; Start 05/18/20 at 16:30 Sodium Chloride 1,000 ml @ 85 mls/hr [id number] IV Last administered on 05/24/20at 18:31; Start 05/18/20 at 16:20; Stop 05/25/20 at 09:44; Status DC Ondansetron HCl (Zofran) 4 mg PRN Q4HRS PRN IV NAUSEA/VOMITING; Start 05/18/20 at 16:30 Acetaminophen (Tylenol) 650 mg PRN Q4HRS PRN PO TEMP OVER 100.4F OR MILD PAIN Last administered on 06/10/20at 12:33; Start 05/18/20 at 16:30 Acetaminophen (Tylenol Supp) 650 mg PRN Q4HRS PRN MO TEMP OVER 100.4F OR MILD PAIN; Start 05/18/20 at 16:30 Sodium Monofluorophosphate (Fleet Adult) 133 ml PRN DAILY PRN MO CONSTIPATION Last administered on 06/12/20at 11:09; Start 05/18/20 at 16:30 Docusate Sodium (Colace) 100 mg PRN BID PRN PO HARD STOOLS Last administered on 06/10/20at 22:32; Start 05/18/20 at 16:30 Albuterol Sulfate (Ventolin Neb Soln) 2.5 mg PRN Q4HRS PRN NEB SHORTNESS OF BREATH Last administered on 05/21/20at 18:14; Start 05/18/20 at 16:30; Stop 05/31/20 at 16:19; Status DC Guaifenesin (Robitussin) 200 mg PRN Q4HRS PRN PO COUGH Last administered on 05/23/20at 20:00; Start 05/18/20 at 16:30 Enoxaparin Sodium (Lovenox 40mg Syringe) 40 mg Q24H SQ Last administered on 05/31/20at 17:03; Start 05/18/20 at 17:00; Stop 06/01/20 at 10:27; Status DC Aspirin (Ecotrin) 81 mg DAILY PO Last administered on 06/11/20at 08:29; Start 05/19/20 at 09:00; Stop 06/11/20 at 13:19; Status DC Metoprolol Tartrate (Lopressor) 50 mg BID PO Last administered on 05/21/20at 09:16; Start 05/19/20 at 09:00; Stop 05/21/20 at 15:45; Status DC Diclofenac Sodium (Voltaren) 75 mg BID PO Last administered on 06/03/20 20:29; Start 05/19/20 at 10:00; Stop 06/04/20 at 08:03; Status DC Hydralazine HCl (Apresoline) 100 mg BID PO Last administered on 05/21/20at 09:15; Start 05/19/20 at 09:00; Stop 05/21/20 at 15:45; Status DC Lisinopril (Prinivil) 20 mg DAILY PO Last administered on 05/21/20at 09:16; Start 05/19/20 at 10:00; Stop 05/21/20 at 15:45; Status DC Pantoprazole Sodium (Protonix) 40 mg DAILYAC PO Last administered on 06/11/20 08:29; Start 05/19/20 at 10:00; Stop 06/11/20 at 11:58; Status DC Atorvastatin Calcium (Lipitor) 40 mg QHS PO Last administered on 06/11/20at 20:34; Start 05/19/20 at 21:00 Hydrochlorothiazide (Hydrodiuril) 25 mg DAILY PO Last administered on 05/23/20at 08:59; Start 05/19/20 at 10:00; Stop 05/23/20 at 10:22; Status DC Lactobacillus Rhamnosus (Culturelle) 1 cap BID PO Last administered on 06/12/20at 08:04; Start 05/19/20 at 21:00 Insulin Human Lispro (HumaLOG) 0-7 UNITS TIDWMEALS SQ Last administered on 06/10/20at 12:35; Start 05/19/20 at 17:00; Stop 06/10/20 at 17:33; Status DC Dextrose (Dextrose 50%-Water Syringe) 12.5 gm PRN Q15MIN PRN IV SEE COMMENTS Last administered on 06/04/20at 06:52; Start 05/19/20 at 14:15 Methimazole (Tapazole) 5 mg BID PO Last administered on 06/12/20at 08:03; Start 05/20/20 at 10:00 Insulin Glargine (Lantus Syringe) 5 unit DAILY SQ Last administered on 05/22/20at 09:15; Start 05/21/20 at 09:00; Stop 05/22/20 at 21:05; Status DC Doxycycline Hyclate (Vibra-Tab) 100 mg BID PO Last administered on 05/28/20at 08:53; Start 05/21/20 at 15:00; Stop 05/28/20 at 15:02; Status DC Furosemide (Lasix) 20 mg 1X ONCE IVP Last administered on 05/21/20at 17:05; St art 05/21/20 at 17:00; Stop 05/21/20 at 17:01; Status DC Sterile Water (WATER for RESP) 1,000 ml CONT PRN INH VIA VAPOTHERM DEVICE Last administered on 05/23/20at 16:26; Start 05/21/20 at 17:15; Stop 05/30/20 at 12:58; Status DC Albuterol Sulfate (Ventolin Neb Soln) 2.5 mg Q4HRS NEB Last administered on 05/30/20at 15:45; Start 05/21/20 at 20:00; Stop 05/31/20 at 16:19; Status DC Vancomycin HCl (Vanco Per Pharmacy) 1 each PRN DAILY PRN MC SEE COMMENTS Last administered on 05/25/20at 23:52; Start 05/22/20 at 09:00; Stop 05/27/20 at 16:29; Status DC Vancomycin HCl 2 gm/Sodium Chloride 500 ml @ 250 mls/hr 1X ONCE IV Last administered on 05/22/20at 09:05; Start 05/22/20 at 09:00; Stop 05/22/20 at 10:59; Status DC Vancomycin HCl 1.25 gm/Sodium Chloride 250 ml @ 167 mls/hr Q24H IV Last administered on 05/23/20at 09:00; Start 05/23/20 at 09:00; Stop 05/24/20 at 10:05; Status DC Vancomycin HCl (Vancomycin Trough Level) 1 each 1X ONCE MC Last administered on 05/24/20at 08:30; Start 05/24/20 at 08:30; Stop 05/24/20 at 08:31; Status DC Methylprednisolone Sodium Succinate (SOLU-Medrol 125MG VIAL) 80 mg Q8HRS IV Last administered on 05/27/20at 06:04; Start 05/22/20 at 14:00; Stop 05/27/20 at 12:02; Status DC Insulin Glargine (Lantus Syringe) 10 unit BID SQ Last administered on 05/23/20at 09:11; Start 05/22/20 at 21:00; Stop 05/23/20 at 20:17; Status DC Metoprolol Tartrate (Lopressor) 50 mg BID PO Last administered on 06/08/20at 08:23; Start 05/23/20 at 10:30; Stop 06/08/20 at 10:43; Status DC Hydrochlorothiazide (Microzide) 12.5 mg DAILY PO Last administered on 06/12/20at 08:06; Start 05/24/20 at 09:00 Potassium Chloride (Klor-Con) 40 meq Q2H PO Last administered on 05/23/20at 14:58; Start 05/23/20 at 10:30; Stop 05/23/20 at 14:31; Status DC Lisinopril (Prinivil) 40 mg DAILY PO Last administered on 06/12/20at 08:03; Start 05/23/20 at 10:30 Hydralazine HCl (Apresoline) 100 mg BID PO Last administered on 06/12/20at 08:04; Start 05/23/20 at 10:30 Insulin Glargine (Lantus Syringe) 10 unit BID SQ Last administered on 05/24/20at 09:14; Start 05/23/20 at 21:00; Stop 05/24/20 at 11:28; Status DC Vancomycin HCl 1.25 gm/Sodium Chloride 250 ml @ 167 mls/hr Q12H IV Last administered on 05/27/20at 08:21; Start 05/24/20 at 10:30; Stop 05/27/20 at 16:26; Status DC Vancomycin HCl (Vancomycin Trough Level) 1 each 1X ONCE MC Last administered on 05/25/20at 22:00; Start 05/25/20 at 22:00; Stop 05/25/20 at 22:01; Status DC Insulin Glargine (Lantus Syringe) 12 unit BID SQ ; Start 05/24/20 at 21:00; Stop 05/24/20 at 17:27; Status DC Insulin Glargine (Lantus Syringe) 15 unit BID SQ Last administered on 05/25/20at 08:19; Start 05/24/20 at 21:00; Stop 05/25/20 at 09:47; Status DC Insulin Human Lispro (HumaLOG) 7 units 1X ONCE SQ Last administered on 05/24/20at 18:01; Start 05/24/20 at 17:30; Stop 05/24/20 at 17:31; Status DC Piperacillin Sod/ Tazobactam Sod 3.375 gm/Sodium Chloride 50 ml @ 100 mls/hr Q6HRS IV Last administered on 05/28/20at 12:09; Start 05/24/20 at 18:30; Stop 05/28/20 at 15:01; Status DC Insulin Human Lispro (HumaLOG) 11 units 1X SQ ; Start 05/24/20 at 21:30; Status Cancel Insulin Human Lispro (HumaLOG) 11 units 1X ONCE SQ Last administered on at 22:25; Start 05/24/20 at 22:00; Stop 05/24/20 at 22:01; Status DC Furosemide (Lasix) 20 mg 1X ONCE IVP Last administered on 05/25/20at 11:12; Start 05/25/20 at 10:00; Stop 05/25/20 at 10:01; Status DC Insulin Glargine (Lantus Syringe) 18 unit BID SQ Last administered on 05/27/20at 08:33; Start 05/25/20 at 21:00; Stop 05/27/20 at 12:00; Status DC Midazolam HCl (Versed) 2 mg 1X ONCE IV ; Start 05/25/20 at 10:30; Stop 05/25/20 at 10:31; Status Cancel Fentanyl Citrate (Fentanyl 2ml Vial) 50 mcg 1X ONCE IM ; Start 05/25/20 at 10:30; Stop 05/25/20 at 10:31; Status Cancel Hydralazine HCl (Apresoline Inj) 10 mg PRN Q4HRS PRN IVP ELEVATED BP, SEE COMMENTS Last administered on 06/10/20at 01:08; Start 05/25/20 at 16:15 Potassium Chloride (Klor-Con) 40 meq 1X ONCE PO Last administered on 05/26/20at 18:43; Start 05/26/20 at 18:30; Stop 05/26/20 at 18:31; Status DC Insulin Glargine (Lantus Syringe) 22 unit BID SQ Last administered on 05/29/20at 08:24; Start 05/27/20 at 21:00; Stop 05/29/20 at 12:14; Status DC Methylprednisolone Sodium Succinate (SOLU-Medrol 125MG VIAL) 40 mg Q12HR IV Last administered on 05/28/20at 08:52; Start 05/27/20 at 19:00; Stop 05/28/20 at 13:37; Status DC Nystatin (Nystatin Oral Susp) 5 ml [id number] Last administered on 06/12/20at 08:04; Start 05/27/20 at 17:00 Insulin Human Lispro (HumaLOG) 20 units 1X ONCE SQ Last administered on 05/27/20at 17:32; Start 05/27/20 at 17:30; Stop 05/27/20 at 17:31; Status DC Methylprednisolone Sodium Succinate (SOLU-Medrol 40MG VIAL) 40 mg Q12HR IV Last administered on 05/30/20at 08:34; Start 05/28/20 at 21:00; Stop 05/30/20 at 14:10; Status DC Amoxicillin/ Clavulanate Potassium (Augmentin 875/ 125mg) 1 tab BID PO Last administered on 05/31/20at 19:53; Start 05/28/20 at 21:00; Stop 05/31/20 at 21:01; Status DC Amlodipine Besylate (Norvasc) 2.5 mg DAILY PO Last administered on 06/09/20at 08:40; Start 05/29/20 at 11:45; Stop 06/10/20 at 02:44; Status DC Furosemide (Lasix) 20 mg 1X ONCE PO Last administered on 05/29/20at 12:40; Start 05/29/20 at 12:30; Stop 05/29/20 at 12:31; Status DC Potassium Chloride (Klor-Con) 20 meq 1X ONCE PO Last administered on 05/29/20at 12:40; Start 05/29/20 at 12:30; Stop 05/29/20 at 12:31; Status DC Insulin Glargine (Lantus Syringe) 25 unit BID SQ Last administered on 06/04/20at 07:58; Start 05/29/20 at 21:00; Stop 06/04/20 at 09:20; Status DC Furosemide (Lasix) 40 mg 1X ONCE IVP Last administered on 05/30/20at 11:47; Start 05/30/20 at 11:15; Stop 05/30/20 at 11:16; Status DC Iohexol (Omnipaque 350 Mg/ml) 100 ml 1X ONCE IV Last administered on 05/30/20at 12:00; Start 05/30/20 at 12:00; Stop 05/30/20 at 12:01; Status DC Info (CONTRAST GIVEN -- Rx MONITORING) 1 each PRN DAILY PRN MC SEE COMMENTS; Start 05/30/20 at 12:15; Stop 06/01/20 at 12:14; Status DC Sterile Water (WATER for RESP) 1,000 ml CONT PRN INH VIA VAPOTHERM DEVICE Last administered on 06/10/20at 18:28; Start 05/30/20 at 13:00 Methylprednisolone Sodium Succinate (SOLU-Medrol 125MG VIAL) 125 mg Q12HR IV Last administered on 06/09/20at 08:41; Start 05/30/20 at 14:15; Stop 06/09/20 at 13:11; Status DC Enoxaparin Sodium (Lovenox 40mg Syringe) 40 mg BID SQ Last administered on 06/10/20at 08:15; Start 06/01/20 at 21:00; Stop 06/10/20 at 13:46; Status DC Non-Formulary Medication 1 ea/ Sodium Chloride 210 ml @ 210 mls/hr 1X ONCE IV Last administered on 06/01/20at 17:11; Start 06/01/20 at 16:30; Stop 06/01/20 at 17:29; Status DC Non-Formulary Medication 1 ea/ Sodium Chloride 230 ml @ 460 mls/hr DAILY IV Last administered on 06/05/20at 17:38; Start 06/02/20 at 09:00; Stop 06/05/20 at 09:29; Status DC Potassium Chloride (Klor-Con) 40 meq 1X ONCE PO Last administered on 06/03/20at 09:51; Start 06/03/20 at 08:00; Stop 06/03/20 at 08:01; Status DC Diclofenac Sodium (Voltaren) 75 mg BID PO ; Start 06/04/20 at 08:03; Stop 06/04/20 at 08:04; Status DC Diclofenac Sodium (Voltaren) 75 mg BID PO Last administered on 06/10/20at 21:15; Start 06/04/20 at 09:00; Stop 06/11/20 at 13:19; Status DC Insulin Glargine (Lantus Syringe) 30 unit QHS SQ Last administered on 06/04/20at 21:14; Start 06/04/20 at 21:00; Stop 06/05/20 at 10:25; Status DC Insulin Glargine (Lantus Syringe) 15 unit QHS SQ Last administered on 06/09/20at 21:29; Start 06/05/20 at 21:00; Stop 06/10/20 at 13:46; Status DC Furosemide (Lasix) 40 mg 1X ONCE IVP Last administered on 06/08/20at 11:14; Start 06/08/20 at 11:00; Stop 06/08/20 at 11:02; Status DC Methylprednisolone Sodium Succinate (SOLU-Medrol 125MG VIAL) 60 mg BID IV Last administered on 06/11/20at 08:29; Start 06/09/20 at 21:00; Stop 06/11/20 at 15:22; Status DC Amlodipine Besylate (Norvasc) 10 mg 1X ONCE PO Last administered on 06/10/20at 03:16; Start 06/10/20 at 03:00; Stop 06/10/20 at 03:01; Status DC Amlodipine Besylate (Norvasc) 10 mg DAILY PO Last administered on 06/12/20at 08:04; Start 06/10/20 at 09:00 Hydralazine HCl (Apresoline Inj) 10 mg 1X ONCE IVP Last administered on 06/10/20at 03:16; Start 06/10/20 at 03:00; Stop 06/10/20 at 03:01; Status DC Enoxaparin Sodium (Lovenox 40mg Syringe) 40 mg DAILY SQ Last administered on 06/11/20at 08:28; Start 06/11/20 at 09:00; Stop 06/11/20 at 09:09; Status DC Insulin Glargine (Lantus Syringe) 20 unit QHS SQ Last administered on 06/11/20at 21:25; Start 06/10/20 at 13:45 Insulin Human Lispro (HumaLOG) 0-9 UNITS TIDWMEALS SQ Last administered on 06/11/20at 09:04; Start 06/10/20 at 17:40; Stop 06/11/20 at 08:00; Status DC Pantoprazole Sodium (PROTONIX VIAL for IV PUSH) 40 mg DAILYAC IVP Last administered on 06/12/20at 08:04; Start 06/12/20 at 07:30 Insulin Human Lispro (HumaLOG) 0-9 UNITS TIDWMEALS SQ Last administered on 06/11/20at 17:00; Start 06/11/20 at 13:00 Iohexol (Omnipaque 300 Mg/ml) 75 ml 1X ONCE IV Last administered on 06/11/20at 14:50; Start 06/11/20 at 13:15; Stop 06/11/20 at 13:16; Status DC Info (CONTRAST GIVEN -- Rx MONITORING) 1 each PRN DAILY PRN MC SEE COMMENTS; Start 06/11/20 at 13:15; Stop 06/13/20 at 13:14 Morphine Sulfate (Morphine Sulfate) 2 mg PRN Q2HR PRN IV PAIN Last administered on 06/12/20at 10:15; Start 06/11/20 at 15:15 Methylprednisolone Sodium Succinate (SOLU-Medrol 125MG VIAL) 60 mg DAILY IV Last administered on 06/12/20at 08:05; Start 06/12/20 at 09:00 Piperacillin Sod/ Tazobactam Sod 2.25 gm/Sodium Chloride 50 ml @ 100 mls/hr Q 8HRS IV Last administered on 06/12/20at 05:49; Start 06/11/20 at 17:00 Lactulose (Lactulose) 30 gm 1X ONCE PO Last administered on 06/11/20at 20:30; Start 06/11/20 at 20:00; Stop 06/11/20 at 20:01; Status DC Polyethylene Glycol (miraLAX PACKET) 17 gm [id number] PO Last administered on 06/11/20at 20:30; Start 06/11/20 at 20:00 Active Scripts Active Reported Actos (Pioglitazone Hcl) 45 Mg Tablet 1 Tab PO DAILY 30 Days Diclofenac Sodium 75 Mg Tablet. 1 Tab PO BID Klor-Con 10 (Potassium Chloride) 10 Meq Tablet.er 1 Tab PO DAILY 30 Days Metformin Hcl 1,000 Mg Tablet 1,000 Mg PO BIDWMEALS Omeprazole 20 Mg Capsule. 1 Cap PO DAILY Lisinopril-Hctz 20-25 Mg Tab (Lisinopril/Hydrochlorothiazide) 1 Each Tablet 1 Tab PO DAILY Aspirin Ec (Aspirin) 81 Mg Tablet.dr 1 Tab PO DAILY Hydralazine Hcl 100 Mg Tablet 1 Tab PO BID Metoprolol Tartrate 50 Mg Tablet 1 Tab PO BID Rosuvastatin Calcium 10 Mg Tablet 10 Mg PO DAILY Vitals/I & O Vital Sign - Last 24 Hours 06/11/20 06/11/20 06/11/20 06/11/20 13:00 14:00 15:00 15:41 Pulse 96 70 70 Resp 38 38 38 B/P (MAP) 114/55 (74) 141/73 (95) 141/73 (95) Pulse Ox 86 96 96 98 O2 Delivery BiPAP/CPAP BiPAP/CPAP BiPAP/CPAP [id number] 06/11/20 06/11/20 06/11/20 06/11/20 16:00 16:00 16:00 17:00 Pulse 70 70 Resp 27 23 B/P (MAP) 145/70 (95) 144/64 (90) Pulse Ox 98 98 O2 Delivery Bi-pap BiPAP/CPAP BiPAP/CPAP O2 Flow Rate 40.0 40.0 06/11/20 06/11/20 06/11/20 06/11/20 18:00 19:00 20:00 20:00 Temp 98.7 98.7 Pulse 112 76 70 Resp 27 28 24 B/P (MAP) 152/72 (98) 152/64 (93) 149/66 (93) Pulse Ox 98 99 100 O2 Delivery BiPAP/CPAP BiPAP/CPAP Bi-pap BiPAP/CPAP 06/11/20 06/11/20 06/11/20 06/11/20 20:00 20:15 20:33 21:00 Pulse 62 78 Resp 27 B/P (MAP) 149/66 129/64 (85) Pulse Ox 100 98 O2 Delivery [id number] BiPAP/CPAP O2 Flow Rate 40.0 06/11/20 06/11/20 06/12/20 06/12/20 22:00 23:00 00:00 00:00 Pulse 80 77 Resp 36 30 B/P (MAP) 127/61 (83) 142/60 (87) Pulse Ox 98 99 O2 Delivery BiPAP/CPAP BiPAP/CPAP Bi-pap O2 Flow Rate 40.0 7/18/20 7/18/20 7/18/20 7/18/20 00:00 00:40 01:00 02:00 Pulse 82 72 76 Resp 30 40 35 B/P (MAP) 148/62 (90) 154/82 (106) 138/72 (94) Pulse Ox 99 100 96 98 O2 Delivery BiPAP/CPAP [id number] BiPAP/CPAP BiPAP/CPAP /18/20 7/18/20 7/18/20 7/18/20 02:15 02:45 03:00 04:00 Pulse 92 Resp 40 40 B/P (MAP) 154/67 (96) Pulse Ox 98 100 100 O2 Delivery BiPAP/CPAP BiPAP/CPAP Bi-pap O2 Flow Rate 40.0 /18/20 7/18/20 7/18/20 7//20 04:00 04:00 04:33 05:00 Pulse 92 73 Resp 50 24 B/P (MAP) 136/64 (88) 152/66 (94) Pulse Ox 100 99 100 O2 Delivery BiPAP/CPAP [id number] BiPAP/CPAP O2 Flow Rate 40.0 18/20 7/18/20 7/18/20 7//20 05:50 06:00 06:20 07:00 Pulse 77 88 Resp 35 30 30 22 B/P (MAP) 148/76 (100) 133/64 (87) Pulse Ox 100 99 99 99 O2 Delivery BiPAP/CPAP BiPAP/CPAP BiPAP/CPAP BiPAP/CPAP 18/20 7/18/20 7/18/20 06/12/ 08:00 08:00 08:03 08:04 Temp 98.8 98.8 Pulse 91 88 88 Resp 20 B/P (MAP) 112/61 (78) 133/64 133/64 Pulse Ox 99 O2 Delivery Bi-pap BiPAP/CPAP 18/20 7/18/20 7/18/20 //20 08:04 08:52 09:00 10:00 Pulse 88 95 97 Resp 24 24 B/P (MAP) 133/64 83/49 (60) 137/69 (91) Pulse Ox 99 96 96 O2 Delivery [id number] BiPAP/CPAP BiPAP/CPAP 18/20 7/18/20 7/18/20 7/18/20 10:15 10:45 11:00 11:44 Pulse 86 Resp 20 22 26 B/P (MAP) 94/48 (63) Pulse Ox 97 98 95 99 O2 Delivery BiPAP/CPAP BiPAP/CPAP BiPAP/CPAP [id number] 06/12/20 06/12/20 12:00 12:00 Temp 98.9 98.9 Pulse 86 Resp 26 B/P (MAP) 92/56 (68) Pulse Ox 94 O2 Delivery BiPAP/CPAP Bi-pap Intake and Output0 06/11/20 06/11/20 06/12/20 15:08 23:08 07:08 Intake Total 600 ml Output Total 1250 ml 400 ml Balance 600 ml -1250 ml -400 ml Problem List Problems Medical Problems: (1) Altered mental status Status: Acute (2) Hypoglycemia Status: Acute (3) Hypothermia Status: Acute Assessment Rectal bleed- with rsolved lactic acidosis, stercoral ulcer leads differential. Monitor Hg with covid. transfuse as needed. O/P colonoscopy once above resolved/covid cleared. CPM Justicifation of Admission Dx: Justifications for Admission: Justification of Admission Dx: Yes Altered Mental Status: Altered Mental Status KENNEDI KEMP MD Jun 12, 2020 12:36
[2020-06-12] MEDS ORDERED: IV NORMAL SALINE 500ML BAG 500 ML IV ONE (13:00)
[2020-06-12 14:32] LABS: PROTHROMBIN TIME PATIENT 14.2 SEC (11.7-14.0)
[2020-06-12] MEDS: STERILE WATER for RESP 1,000 ML BAG. INH PRN (16:19)
[2020-06-12] MEDS: ATORVASTATIN CALCIUM 40 MG TABLET. PO SCH (20:24)
[2020-06-12] MEDS: INSULIN GLARGINE SYRINGE. SQ SCH (21:02)
[2020-06-13] VITALS (26 sets, daily range): BP systolic 98–141; BP diastolic 44–72
[2020-06-13 05:21] LABS: BASO % 0 % (0-3); EOS # 0.3 x10^3/uL (0.0-0.7); EOS % 2 % (0-3); LYMPH # 0.7 x10^3/uL (1.0-4.8); LYMPH % 6 % (24-48); MEAN CORPUSCULAR HEMOGLOBIN 28 pg (25-35); MEAN CORPUSCULAR HGB CONC 33 g/dL (31-37); MEAN CORPUSCULAR VOLUME 85 fL (79-100); MONO # 0.3 x10^3/uL (0.0-1.1); MONO % 3 % (0-9); NEUT # 10.6 x10^3/uL (1.8-7.7); NEUT % 89 % (31-73); PLATELET COUNT 140 x10^3/uL (140-400); RED BLOOD COUNT 2.17 x10^6/uL (3.50-5.40); RED CELL DISTRIBUTION WIDTH 18.8 % (11.5-14.5); WHITE BLOOD COUNT 11.9 x10^3/uL (4.0-11.0)
[2020-06-13 05:40] LABS: CREATININE 0.7 mg/dL (0.6-1.0); GFR 83.2; POTASSIUM 4.2 mmol/L (3.5-5.1)
[2020-06-13 05:53] LABS: HEMATOCRIT 18.4 % (36.0-47.0); HEMOGLOBIN 6.1 g/dL (12.0-15.5)
[2020-06-13] MEDS: POLYETHYLENE GLYCOL 3350 17 GM PACKET. PO SCH ×2 (06:00→17:25)
[2020-06-13] MEDS: PIPERACILLIN/TAZOBACTAM 2.25 GM in IV NORMAL SALINE 50ML 50 ML IV SCH ×3 (06:30→21:30)
--- NOTE | 2020-06-13 07:28 | PDOC ---
PULMONARY PROGRESS NOTES Subjective on vapotherm 40 lpm and 100% fio2.. had bm overnight not much abd pain sob better. Vitals Vital Signs Date Time Temp Pulse Resp B/P (MAP) Pulse Ox O2 Delivery O2 Flow Rate FiO2 06/13/20 06:00 21 110/54 (72) 94 Vapotherm 40.0 06/13/20 05:00 66 06/13/20 04:00 97.5 97.5 Comments cassidy as mentioned as above other sys otherwise neg ROS: No Chest Pain, No Increase Cough General: Alert Lungs: Crackles Cardiovascular: S1, S2 Abdomen: Soft, Non-tender Neuro Exam: Alert Extremities: Other (+2 BLE ) Skin: Warm Labs Laboratory Tests Test 06/11/20 08:39 06/11/20 09:15 06/11/20 11:00 06/11/20 13:00 Glucose (Fingerstick) 308 mg/dL (70-99) 85 mg/dL (70-99) Hemoglobin 9.2 g/dL (12.0-15.5) Hematocrit 27.8 % (36.0-47.0) Mean Corpuscular Hemoglobin Concent 33 g/dL (31-37) Lactic Acid Level 4.7 mmol/L (0.4-2.0) Test 06/11/20 16:30 06/11/20 18:07 06/11/20 20:52 06/12/20 09:08 Lactic Acid Level 1.2 mmol/L (0.4-2.0) Glucose (Fingerstick) 375 mg/dL (70-99) 195 mg/dL (70-99) 112 mg/dL (70-99) Test 06/12/20 10:25 06/12/20 13:40 06/12/20 17:22 06/12/20 20:43 White Blood Count 15.8 x10^3/uL (4.0-11.0) Red Blood Count 2.88 x10^6/uL (3.50-5.40) Hemoglobin 8.0 g/dL (12.0-15.5) Hematocrit 25.0 % (36.0-47.0) Mean Corpuscular Volume 87 fL (79-100) Mean Corpuscular Hemoglobin 28 pg (25-35) Mean Corpuscular Hemoglobin Concent 32 g/dL (31-37) Red Cell Distribution Width 20.1 % (11.5-14.5) Platelet Count 157 x10^3/uL (140-400) Neutrophils (%) (Auto) 94 % (31-73) Lymphocytes (%) (Auto) 2 % (24-48) Monocytes (%) (Auto) 3 % (0-9) Eosinophils (%) (Auto) 1 % (0-3) Basophils (%) (Auto) 0 % (0-3) Neutrophils # (Auto) 14.9 x10^3/uL (1.8-7.7) Lymphocytes # (Auto) 0.3 x10^3/uL (1.0-4.8) Monocytes # (Auto) 0.4 x10^3/uL (0.0-1.1) Eosinophils # (Auto) 0.1 x10^3/uL (0.0-0.7) Basophils # (Auto) 0.0 x10^3/uL (0.0-0.2) Sodium Level 145 mmol/L (136-145) Potassium Level 5.4 mmol/L (3.5-5.1) Chloride Level 107 mmol/L (98-107) Carbon Dioxide Level 31 mmol/L (21-32) Anion Gap 7 (6-14) Blood Urea Nitrogen 26 mg/dL (7-20) Creatinine 0.6 mg/dL (0.6-1.0) Estimated GFR (Cockcroft-Gault) 99.4 BUN/Creatinine Ratio 43 (6-20) Glucose Level 141 mg/dL (70-99) Lactic Acid Level 2.1 mmol/L (0.4-2.0) 1.4 mmol/L (0.4-2.0) Calcium Level 7.3 mg/dL (8.5-10.1) Total Bilirubin 0.8 mg/dL (0.2-1.0) Aspartate Amino Transf (AST/SGOT) 45 U/L (15-37) Alanine Aminotransferase (ALT/SGPT) 34 U/L (14-59) Alkaline Phosphatase 146 U/L (46-116) Total Protein 4.9 g/dL (6.4-8.2) Albumin 1.7 g/dL (3.4-5.0) Albumin/Globulin Ratio 0.5 (1.0-1.7) Prothrombin Time 14.2 SEC (11.7-14.0) Prothromb Time International Ratio 1.1 (0.8-1.1) Glucose (Fingerstick) 360 mg/dL (70-99) 191 mg/dL (70-99) Test 06/13/20 05:00 White Blood Count 11.9 x10^3/uL (4.0-11.0) Red Blood Count 2.17 x10^6/uL (3.50-5.40) Hemoglobin 6.1 g/dL (12.0-15.5) Hematocrit 18.4 % (36.0-47.0) Mean Corpuscular Volume 85 fL (79-100) Mean Corpuscular Hemoglobin 28 pg (25-35) Mean Corpuscular Hemoglobin Concent 33 g/dL (31-37) Red Cell Distribution Width 18.8 % (11.5-14.5) Platelet Count 140 x10^3/uL (140-400) Neutrophils (%) (Auto) 89 % (31-73) Lymphocytes (%) (Auto) 6 % (24-48) Monocytes (%) (Auto) 3 % (0-9) Eosinophils (%) (Auto) 2 % (0-3) Basophils (%) (Auto) 0 % (0-3) Neutrophils # (Auto) 10.6 x10^3/uL (1.8-7.7) Lymphocytes # (Auto) 0.7 x10^3/uL (1.0-4.8) Monocytes # (Auto) 0.3 x10^3/uL (0.0-1.1) Eosinophils # (Auto) 0.3 x10^3/uL (0.0-0.7) Basophils # (Auto) 0.0 x10^3/uL (0.0-0.2) Sodium Level 139 mmol/L (136-145) Potassium Level 4.2 mmol/L (3.5-5.1) Chloride Level 106 mmol/L (98-107) Carbon Dioxide Level 29 mmol/L (21-32) Anion Gap 4 (6-14) Blood Urea Nitrogen 30 mg/dL (7-20) Creatinine 0.7 mg/dL (0.6-1.0) Estimated GFR (Cockcroft-Gault) 83.2 Glucose Level 72 mg/dL (70-99) Calcium Level 7.0 mg/dL (8.5-10.1) Laboratory Tests Test 06/12/20 09:08 06/12/20 10:25 06/12/20 13:40 06/12/20 17:22 Glucose (Fingerstick) 112 mg/dL (70-99) 360 mg/dL (70-99) White Blood Count 15.8 x10^3/uL (4.0-11.0) Red Blood Count 2.88 x10^6/uL (3.50-5.40) Hemoglobin 8.0 g/dL (12.0-15.5) Hematocrit 25.0 % (36.0-47.0) Mean Corpuscular Volume 87 fL (79-100) Mean Corpuscular Hemoglobin 28 pg (25-35) Mean Corpuscular Hemoglobin Concent 32 g/dL (31-37) Red Cell Distribution Width 20.1 % (11.5-14.5) Platelet Count 157 x10^3/uL (140-400) Neutrophils (%) (Auto) 94 % (31-73) Lymphocytes (%) (Auto) 2 % (24-48) Monocytes (%) (Auto) 3 % (0-9) Eosinophils (%) (Auto) 1 % (0-3) Basophils (%) (Auto) 0 % (0-3) Neutrophils # (Auto) 14.9 x10^3/uL (1.8-7.7) Lymphocytes # (Auto) 0.3 x10^3/uL (1.0-4.8) Monocytes # (Auto) 0.4 x10^3/uL (0.0-1.1) Eosinophils # (Auto) 0.1 x10^3/uL (0.0-0.7) Basophils # (Auto) 0.0 x10^3/uL (0.0-0.2) Sodium Level 145 mmol/L (136-145) Potassium Level 5.4 mmol/L (3.5-5.1) Chloride Level 107 mmol/L (98-107) Carbon Dioxide Level 31 mmol/L (21-32) Anion Gap 7 (6-14) Blood Urea Nitrogen 26 mg/dL (7-20) Creatinine 0.6 mg/dL (0.6-1.0) Estimated GFR (Cockcroft-Gault) 99.4 BUN/Creatinine Ratio 43 (6-20) Glucose Level 141 mg/dL (70-99) Lactic Acid Level 2.1 mmol/L (0.4-2.0) 1.4 mmol/L (0.4-2.0) Calcium Level 7.3 mg/dL (8.5-10.1) Total Bilirubin 0.8 mg/dL (0.2-1.0) Aspartate Amino Transf (AST/SGOT) 45 U/L (15-37) Alanine Aminotransferase (ALT/SGPT) 34 U/L (14-59) Alkaline Phosphatase 146 U/L (46-116) Total Protein 4.9 g/dL (6.4-8.2) Albumin 1.7 g/dL (3.4-5.0) Albumin/Globulin Ratio 0.5 (1.0-1.7) Prothrombin Time 14.2 SEC (11.7-14.0) Prothromb Time International Ratio 1.1 (0.8-1.1) Test 06/12/20 20:43 06/13/20 05:00 Glucose (Fingerstick) 191 mg/dL (70-99) White Blood Count 11.9 x10^3/uL (4.0-11.0) Red Blood Count 2.17 x10^6/uL (3.50-5.40) Hemoglobin 6.1 g/dL (12.0-15.5) Hematocrit 18.4 % (36.0-47.0) Mean Corpuscular Volume 85 fL (79-100) Mean Corpuscular Hemoglobin 28 pg (25-35) Mean Corpuscular Hemoglobin Concent 33 g/dL (31-37) Red Cell Distribution Width 18.8 % (11.5-14.5) Platelet Count 140 x10^3/uL (140-400) Neutrophils (%) (Auto) 89 % (31-73) Lymphocytes (%) (Auto) 6 % (24-48) Monocytes (%) (Auto) 3 % (0-9) Eosinophils (%) (Auto) 2 % (0-3) Basophils (%) (Auto) 0 % (0-3) Neutrophils # (Auto) 10.6 x10^3/uL (1.8-7.7) Lymphocytes # (Auto) 0.7 x10^3/uL (1.0-4.8) Monocytes # (Auto) 0.3 x10^3/uL (0.0-1.1) Eosinophils # (Auto) 0.3 x10^3/uL (0.0-0.7) Basophils # (Auto) 0.0 x10^3/uL (0.0-0.2) Sodium Level 139 mmol/L (136-145) Potassium Level 4.2 mmol/L (3.5-5.1) Chloride Level 106 mmol/L (98-107) Carbon Dioxide Level 29 mmol/L (21-32) Anion Gap 4 (6-14) Blood Urea Nitrogen 30 mg/dL (7-20) Creatinine 0.7 mg/dL (0.6-1.0) Estimated GFR (Cockcroft-Gault) 83.2 Glucose Level 72 mg/dL (70-99) Calcium Level 7.0 mg/dL (8.5-10.1) Medications Active Scripts Medications Dose Route/Sig Max Daily Dose Days Date Category Actos (Pioglitazone Hcl) 45 Mg Tablet 1 Tab PO DAILY 30 05/18/20 Reported Diclofenac Sodium 75 Mg Tablet.dr 1 Tab PO BID 05/18/20 Reported Klor-Con 10 (Potassium Chloride) 10 Meq Tablet.er 1 Tab PO DAILY 30 05/18/20 Reported Metformin Hcl 1,000 Mg Tablet 1,000 Mg PO BIDWMEALS 05/18/20 Reported Omeprazole 20 Mg Capsule.dr 1 Cap PO DAILY 05/18/20 Reported Lisinopril-Hctz 20-25 Mg Tab (Lisinopril/Hydrochlorothiazide) 1 Each Tablet 1 Tab PO DAILY 05/18/20 Reported Aspirin Ec (Aspirin) 81 Mg Tablet.dr 1 Tab PO DAILY 05/18/20 Reported Hydralazine Hcl 100 Mg Tablet 1 Tab PO BID 05/18/20 Reported Metoprolol Tartrate 50 Mg Tablet 1 Tab PO BID 05/18/20 Reported Rosuvastatin Calcium 10 Mg Tablet 10 Mg PO DAILY 05/18/[address] of abd 1. Dilated rectal vault with impacted stool with the lumen measuring up to 10 cm in transverse dimension. Surrounding wall thickening without pneumatosis or perforation. Presacral edema noted as well collectively raising the question of stercoral colitis. An enema could be attempted to help relieve versus manual decompaction as necessary. Proximal to this impacted stool the colonic luminal contents are somewhat hyperdense which could be related to blood products given history. No mass is appreciated and should this represent hemorrhage it could be originating from diverticuli or theoretically from pressure ulceration given the extent of impacted stool. 2. Redemonstration of groundglass and consolidative opacities throughout both lower lungs appearing slightly worsened at the left lung base. The previously seen left pleural effusion has resolved. 3. Mild hepatic steatosis. 4. Enlargement of the partially imaged heart. CXR : reviewed Moderate bilateral infiltrates could be secondary to atypical pneumonia or CHF. This appears similar to the prior study although there is improved aeration of the left lung base. Impression . IMPRESSION: 1. Acute hypoxic respiratory failure secondary to COVID-19 2. Abnormal chest x-ray/ARDS 3. Fever, resolved 4. Hypoglycemic encephalopathy, resolved. 5. Severe protein-calorie malnutrition. 6. Mild azotemia. 7. SARS-CoV-2 negative x2, May 18, May 19 8. + blood cultures, likely contaminant 9. Possible Boop 10. Negative CT angiogram for PE 11. Acute lung injury 11. SARS-CoV-2 positive on May 31/COVID-[address] reviewed, per gi 13. Elevated lactic acid level 14. fecal impaction cxr 06/08 IMPRESSION: Moderate prominent bilateral interstitial lung markings likely congestive changes or interstitial infiltrates. Follow-up to resolution. Impression: CT Chest 1. No evidence of pulmonary embolism. 2. Mild left effusion and moderate bilateral infiltrates right worse than left. This could be ARDS or pulmonary edema or atypical pneumonia. Plan . Case discussed with RN and RT, on prnbipap and vapotherm still needing fio2 100% but appears comfortable fu cxr in am ct of abd reviewed, per gi If patient requires surgical intervention she is at high risk for poor outcome, no surgery per surgery Lovenox for DVT prophylaxis, on hold for now due to GI bleed change solumedrol to 40 daily SARS COVID 2, reported positive from 05/31, s/p Remdesivir ABX per ID DM per IM HTN per IM D/W RN and RT critically ill Total cumulative critical care time of 30 minutes, reviewing data, chest x-ray, and formulating a plan no overlap ANNE DARDEN MD Jun 13, 2020 07:28
[2020-06-13] MEDS: INSULIN LISPRO 300 UNITS/3 ML VIAL. SQ SCH ×3 (08:00→17:55)
[2020-06-13] MEDS: PANTOPRAZOLE IV PUSH 40 MG VIAL. IVP SCH (08:12)
[2020-06-13] MEDS: methylPREDNISolone SOD SUCC PF 125 MG/2 ML VIAL. IV SCH (08:12)
[2020-06-13] MEDS: LACTOBACILLUS RHAMNOSUS GG 1 CAPSULE. PO SCH ×2 (08:13→20:48)
[2020-06-13] MEDS: hydroCHLOROthiazide 12.5 MG CAPSULE PO SCH (08:13)
[2020-06-13] MEDS: methIMAzole 10 MG TABLET PO SCH ×2 (08:13→20:48)
[2020-06-13] MEDS: NYSTATIN 100,000 UNITS/ML 5 ML ORAL.SUSP. SWSW SCH ×4 (08:13→20:50)
[2020-06-13] MEDS: LISINOPRIL 20 MG TABLET PO SCH (08:14)
[2020-06-13] MEDS: amLODIPine BESYLATE 10 MG TABLET PO SCH (08:14)
--- NOTE | 2020-06-13 08:25 | PDOC ---
Infectious Disease Note Subjective Subjective Says feeling ok No fevers last 48 hrs Vapotherm: 40L FiO2 100% + BM ROS ROS as mentioned above/language barrier Vital Sign Vital Signs Vital Signs Date Time Temp Pulse Resp B/P (MAP) Pulse Ox O2 Delivery O2 Flow Rate FiO2 06/13/20 08:14 79 134/73 06/13/20 08:00 98.0 20 92 Vapotherm 40.0 98.0 Physical Exam PHYSICAL EXAM GENERAL: Propped up in bed, alert, appears comfortable HEENT: Oral cavity clear NECK: Supple. LUNGS: Diminished aeration, no accessory muscle use HEART: S1, S2. regular ABDOMEN: Obese, soft : Galan in place EXTREMITIES: Trace edema lower extremities bilaterally. No cyanosis DERMATOLOGIC: Warm, dry. No generalized rash. PIV Labs Lab Laboratory Tests Test 06/12/20 09:08 06/12/20 10:25 06/12/20 13:40 06/12/20 17:22 Glucose (Fingerstick) 112 mg/dL (70-99) 360 mg/dL (70-99) White Blood Count 15.8 x10^3/uL (4.0-11.0) Red Blood Count 2.88 x10^6/uL (3.50-5.40) Hemoglobin 8.0 g/dL (12.0-15.5) Hematocrit 25.0 % (36.0-47.0) Mean Corpuscular Volume 87 fL (79-100) Mean Corpuscular Hemoglobin 28 pg (25-35) Mean Corpuscular Hemoglobin Concent 32 g/dL (31-37) Red Cell Distribution Width 20.1 % (11.5-14.5) Platelet Count 157 x10^3/uL (140-400) Neutrophils (%) (Auto) 94 % (31-73) Lymphocytes (%) (Auto) 2 % (24-48) Monocytes (%) (Auto) 3 % (0-9) Eosinophils (%) (Auto) 1 % (0-3) Basophils (%) (Auto) 0 % (0-3) Neutrophils # (Auto) 14.9 x10^3/uL (1.8-7.7) Lymphocytes # (Auto) 0.3 x10^3/uL (1.0-4.8) Monocytes # (Auto) 0.4 x10^3/uL (0.0-1.1) Eosinophils # (Auto) 0.1 x10^3/uL (0.0-0.7) Basophils # (Auto) 0.0 x10^3/uL (0.0-0.2) Sodium Level 145 mmol/L (136-145) Potassium Level 5.4 mmol/L (3.5-5.1) Chloride Level 107 mmol/L (98-107) Carbon Dioxide Level 31 mmol/L (21-32) Anion Gap 7 (6-14) Blood Urea Nitrogen 26 mg/dL (7-20) Creatinine 0.6 mg/dL (0.6-1.0) Estimated GFR (Cockcroft-Gault) 99.4 BUN/Creatinine Ratio 43 (6-20) Glucose Level 141 mg/dL (70-99) Lactic Acid Level 2.1 mmol/L (0.4-2.0) 1.4 mmol/L (0.4-2.0) Calcium Level 7.3 mg/dL (8.5-10.1) Total Bilirubin 0.8 mg/dL (0.2-1.0) Aspartate Amino Transf (AST/SGOT) 45 U/L (15-37) Alanine Aminotransferase (ALT/SGPT) 34 U/L (14-59) Alkaline Phosphatase 146 U/L (46-116) Total Protein 4.9 g/dL (6.4-8.2) Albumin 1.7 g/dL (3.4-5.0) Albumin/Globulin Ratio 0.5 (1.0-1.7) Prothrombin Time 14.2 SEC (11.7-14.0) Prothromb Time International Ratio 1.1 (0.8-1.1) Test 06/12/20 20:43 06/13/20 05:00 Glucose (Fingerstick) 191 mg/dL (70-99) White Blood Count 11.9 x10^3/uL (4.0-11.0) Red Blood Count 2.17 x10^6/uL (3.50-5.40) Hemoglobin 6.1 g/dL (12.0-15.5) Hematocrit 18.4 % (36.0-47.0) Mean Corpuscular Volume 85 fL (79-100) Mean Corpuscular Hemoglobin 28 pg (25-35) Mean Corpuscular Hemoglobin Concent 33 g/dL (31-37) Red Cell Distribution Width 18.8 % (11.5-14.5) Platelet Count 140 x10^3/uL (140-400) Neutrophils (%) (Auto) 89 % (31-73) Lymphocytes (%) (Auto) 6 % (24-48) Monocytes (%) (Auto) 3 % (0-9) Eosinophils (%) (Auto) 2 % (0-3) Basophils (%) (Auto) 0 % (0-3) Neutrophils # (Auto) 10.6 x10^3/uL (1.8-7.7) Lymphocytes # (Auto) 0.7 x10^3/uL (1.0-4.8) Monocytes # (Auto) 0.3 x10^3/uL (0.0-1.1) Eosinophils # (Auto) 0.3 x10^3/uL (0.0-0.7) Basophils # (Auto) 0.0 x10^3/uL (0.0-0.2) Sodium Level 139 mmol/L (136-145) Potassium Level 4.2 mmol/L (3.5-5.1) Chloride Level 106 mmol/L (98-107) Carbon Dioxide Level 29 mmol/L (21-32) Anion Gap 4 (6-14) Blood Urea Nitrogen 30 mg/dL (7-20) Creatinine 0.7 mg/dL (0.6-1.0) Estimated GFR (Cockcroft-Gault) 83.2 Glucose Level 72 mg/dL (70-99) Calcium Level 7.0 mg/dL (8.5-10.1) Micro 05/18 BLOOD CULTURE LC Final Final GRAM POSITIVE COCCI FINAL ID= [MICROCOCCUS SPECIES] UNABLE TO GROW FOR SUSCEPTIBILITY TESTING MICRO CHARGES MICROCOCCUS SPECIES 05/24. BLOOD CULTURE Preliminary NO GROWTH AFTER 5 DAYS 05/26. RESPIRATORY CULTURE Preliminary Preliminary MODERATE Mixed upper respiratory gerri on 05/27/20 at 1115 Objective Assessment COVID-19 viral infection, 05/30. (negative on 05/18/2020 and ) s/p Remdesivir Acute hypoxic respiratory failure Pneumonia. sputum cx: Resp gerri. Off vanc/Zosyn/doxy. Off augmentin Fever - now resolved Leukocytosis, on steroids. CHF Hypoglycemic encephalopathy, resolved. Diabetes. Hypertension. Severe protein-calorie malnutrition. Gram-positive cocci bacteremia, 05/18/2020, 1 out of 2 bottles, ID MICROCOCCUS SPECIES, likely a contaminant. Thrush - better Constipation/impaction s/p enemas/laxatives Anemia Plan Plan of Care Zosyn restarted 06/11 Steroids per pulmonary Maintain aspiration precautions Anemia per primary Supportive care Airborne isolation for + COVID D/w nursing Attending Co-Sign The patient was seen and interviewed as well as examined at the bedside. The chart was reviewed. The case was discussed. Agree with the plan of care. CESAR DENIS APRN Jun 13, 2020 08:25 BYRON REDMOND MD Jun 13, 2020 10:23
--- NOTE | 2020-06-13 10:27 | PDOC ---
PROGRESS NOTES Subjective Subjective Discussed pt with the nurse to minimize exposure; abdominal pain much improved since disimpaction Objective Objective Vital Signs Date Time Temp Pulse Resp B/P (MAP) Pulse Ox O2 Delivery O2 Flow Rate FiO2 06/13/20 09:00 22 129/70 (89) 94 Vapotherm 40.0 06/13/20 08:14 79 06/13/20 08:00 98.0 98.0 Intake and Output 06/13/20 07:00 Intake Total 790 ml Output Total 1135 ml Balance -345 ml Intake Oral 240 ml IV Total 550 ml Output Urine Total 1135 ml # Bowel Movements 5 Assessment Assessment Problems Medical Problems: (1) Altered mental status Status: Acute (2) Hypoglycemia Status: Acute (3) Hypothermia Status: Acute Plan Plan of Care No surgical recs Comment Review of Relevant I have reviewed the following items kavya (where applicable) has been applied. Labs Laboratory Tests Test 06/11/20 11:00 06/11/20 13:00 06/11/20 16:30 06/11/20 18:07 Lactic Acid Level 4.7 mmol/L (0.4-2.0) 1.2 mmol/L (0.4-2.0) Glucose (Fingerstick) 85 mg/dL (70-99) 375 mg/dL (70-99) Test 06/11/20 20:20 06/11/20 20:52 06/12/20 09:08 06/12/20 10:25 Clostridium difficile Toxin (PCR) Negative (NEGATIVE) Glucose (Fingerstick) 195 mg/dL (70-99) 112 mg/dL (70-99) White Blood Count 15.8 x10^3/uL (4.0-11.0) Red Blood Count 2.88 x10^6/uL (3.50-5.40) Hemoglobin 8.0 g/dL (12.0-15.5) Hematocrit 25.0 % (36.0-47.0) Mean Corpuscular Volume 87 fL (79-100) Mean Corpuscular Hemoglobin 28 pg (25-35) Mean Corpuscular Hemoglobin Concent 32 g/dL (31-37) Red Cell Distribution Width 20.1 % (11.5-14.5) Platelet Count 157 x10^3/uL (140-400) Neutrophils (%) (Auto) 94 % (31-73) Lymphocytes (%) (Auto) 2 % (24-48) Monocytes (%) (Auto) 3 % (0-9) Eosinophils (%) (Auto) 1 % (0-3) Basophils (%) (Auto) 0 % (0-3) Neutrophils # (Auto) 14.9 x10^3/uL (1.8-7.7) Lymphocytes # (Auto) 0.3 x10^3/uL (1.0-4.8) Monocytes # (Auto) 0.4 x10^3/uL (0.0-1.1) Eosinophils # (Auto) 0.1 x10^3/uL (0.0-0.7) Basophils # (Auto) 0.0 x10^3/uL (0.0-0.2) Sodium Level 145 mmol/L (136-145) Potassium Level 5.4 mmol/L (3.5-5.1) Chloride Level 107 mmol/L (98-107) Carbon Dioxide Level 31 mmol/L (21-32) Anion Gap 7 (6-14) Blood Urea Nitrogen 26 mg/dL (7-20) Creatinine 0.6 mg/dL (0.6-1.0) Estimated GFR (Cockcroft-Gault) 99.4 BUN/Creatinine Ratio 43 (6-20) Glucose Level 141 mg/dL (70-99) Lactic Acid Level 2.1 mmol/L (0.4-2.0) Calcium Level 7.3 mg/dL (8.5-10.1) Total Bilirubin 0.8 mg/dL (0.2-1.0) Aspartate Amino Transf (AST/SGOT) 45 U/L (15-37) Alanine Aminotransferase (ALT/SGPT) 34 U/L (14-59) Alkaline Phosphatase 146 U/L (46-116) Total Protein 4.9 g/dL (6.4-8.2) Albumin 1.7 g/dL (3.4-5.0) Albumin/Globulin Ratio 0.5 (1.0-1.7) Test 06/12/20 13:40 06/12/20 17:22 06/12/20 20:43 06/13/20 05:00 Prothrombin Time 14.2 SEC (11.7-14.0) Prothromb Time International Ratio 1.1 (0.8-1.1) Lactic Acid Level 1.4 mmol/L (0.4-2.0) Glucose (Fingerstick) 360 mg/dL (70-99) 191 mg/dL (70-99) White Blood Count 11.9 x10^3/uL (4.0-11.0) Red Blood Count 2.17 x10^6/uL (3.50-5.40) Hemoglobin 6.1 g/dL (12.0-15.5) Hematocrit 18.4 % (36.0-47.0) Mean Corpuscular Volume 85 fL (79-100) Mean Corpuscular Hemoglobin 28 pg (25-35) Mean Corpuscular Hemoglobin Concent 33 g/dL (31-37) Red Cell Distribution Width 18.8 % (11.5-14.5) Platelet Count 140 x10^3/uL (140-400) Neutrophils (%) (Auto) 89 % (31-73) Lymphocytes (%) (Auto) 6 % (24-48) Monocytes (%) (Auto) 3 % (0-9) Eosinophils (%) (Auto) 2 % (0-3) Basophils (%) (Auto) 0 % (0-3) Neutrophils # (Auto) 10.6 x10^3/uL (1.8-7.7) Lymphocytes # (Auto) 0.7 x10^3/uL (1.0-4.8) Monocytes # (Auto) 0.3 x10^3/uL (0.0-1.1) Eosinophils # (Auto) 0.3 x10^3/uL (0.0-0.7) Basophils # (Auto) 0.0 x10^3/uL (0.0-0.2) Sodium Level 139 mmol/L (136-145) Potassium Level 4.2 mmol/L (3.5-5.1) Chloride Level 106 mmol/L (98-107) Carbon Dioxide Level 29 mmol/L (21-32) Anion Gap 4 (6-14) Blood Urea Nitrogen 30 mg/dL (7-20) Creatinine 0.7 mg/dL (0.6-1.0) Estimated GFR (Cockcroft-Gault) 83.2 Glucose Level 72 mg/dL (70-99) Calcium Level 7.0 mg/dL (8.5-10.1) Test 06/13/20 08:21 Glucose (Fingerstick) 71 mg/dL (70-99) Laboratory Tests Test 06/12/20 13:40 06/12/20 17:22 06/12/20 20:43 06/13/20 05:00 Prothrombin Time 14.2 SEC (11.7-14.0) Prothromb Time International Ratio 1.1 (0.8-1.1) Lactic Acid Level 1.4 mmol/L (0.4-2.0) Glucose (Fingerstick) 360 mg/dL (70-99) 191 mg/dL (70-99) White Blood Count 11.9 x10^3/uL (4.0-11.0) Red Blood Count 2.17 x10^6/uL (3.50-5.40) Hemoglobin 6.1 g/dL (12.0-15.5) Hematocrit 18.4 % (36.0-47.0) Mean Corpuscular Volume 85 fL (79-100) Mean Corpuscular Hemoglobin 28 pg (25-35) Mean Corpuscular Hemoglobin Concent 33 g/dL (31-37) Red Cell Distribution Width 18.8 % (11.5-14.5) Platelet Count 140 x10^3/uL (140-400) Neutrophils (%) (Auto) 89 % (31-73) Lymphocytes (%) (Auto) 6 % (24-48) Monocytes (%) (Auto) 3 % (0-9) Eosinophils (%) (Auto) 2 % (0-3) Basophils (%) (Auto) 0 % (0-3) Neutrophils # (Auto) 10.6 x10^3/uL (1.8-7.7) Lymphocytes # (Auto) 0.7 x10^3/uL (1.0-4.8) Monocytes # (Auto) 0.3 x10^3/uL (0.0-1.1) Eosinophils # (Auto) 0.3 x10^3/uL (0.0-0.7) Basophils # (Auto) 0.0 x10^3/uL (0.0-0.2) Sodium Level 139 mmol/L (136-145) Potassium Level 4.2 mmol/L (3.5-5.1) Chloride Level 106 mmol/L (98-107) Carbon Dioxide Level 29 mmol/L (21-32) Anion Gap 4 (6-14) Blood Urea Nitrogen 30 mg/dL (7-20) Creatinine 0.7 mg/dL (0.6-1.0) Estimated GFR (Cockcroft-Gault) 83.2 Glucose Level 72 mg/dL (70-99) Calcium Level 7.0 mg/dL (8.5-10.1) Test 06/13/20 08:21 Glucose (Fingerstick) 71 mg/dL (70-99) Microbiology 05/26/20 Gram Stain Evaluation - Final, Complete 05/26/20 Respiratory Culture - Final, Complete 05/24/20 Blood Culture - Final, Complete NO GROWTH AFTER 5 DAYS 05/18/20 Urine Culture - Final, Complete Medications Current Medications Sodium Chloride 1,000 ml @ 1,000 mls/hr 1X ONCE IV Last administered on 05/18/20at 09:29; Start 05/18/20 at 09:15; Stop 05/18/20 at 10:14; Status DC Ceftriaxone Sodium (Rocephin) 1 gm 1X ONCE IVP Last administered on 05/18/20at 09:28; Start 05/18/20 at 09:15; Stop 05/18/20 at 09:16; Status DC Ondansetron HCl (Zofran) 4 mg PRN Q8HRS PRN IV NAUSEA/VOMITING; Start 05/18/20 at 10:15; Stop 05/18/20 at 16:24; Status DC Acetaminophen (Tylenol) 650 mg PRN Q4HRS PRN PO FEVER > 100.3'F; Start 05/18/20 at 10:15; Stop 05/18/20 at 16:24; Status DC Ceftriaxone Sodium (Rocephin) 1 gm Q24H IVP Last administered on 05/24/20at 09:09; Start 05/19/20 at 09:00; Stop 05/24/20 at 18:10; Status DC Sodium Chloride (Normal Saline Flush) 3 ml QSHIFT PRN IV AFTER MEDS AND BLOOD DRAWS; Start 05/18/20 at 16:30 Sodium Chloride 1,000 ml @ 85 mls/hr [id number] IV Last administered on 05/24/20at 18:31; Start 05/18/20 at 16:20; Stop 05/25/20 at 09:44; Status DC Ondansetron HCl (Zofran) 4 mg PRN Q4HRS PRN IV NAUSEA/VOMITING; Start 05/18/20 at 16:30 Acetaminophen (Tylenol) 650 mg PRN Q4HRS PRN PO TEMP OVER 100.4F OR MILD PAIN Last administered on 06/10/20at 12:33; Start 05/18/20 at 16:30 Acetaminophen (Tylenol Supp) 650 mg PRN Q4HRS PRN WI TEMP OVER 100.4F OR MILD PAIN; Start 05/18/20 at 16:30 Sodium Monofluorophosphate (Fleet Adult) 133 ml PRN DAILY PRN WI CONSTIPATION Last administered on 06/12/20at 11:09; Start 05/18/20 at 16:30 Docusate Sodium (Colace) 100 mg PRN BID PRN PO HARD STOOLS Last administered on 06/10/20at 22:32; Start 05/18/20 at 16:30 Albuterol Sulfate (Ventolin Neb Soln) 2.5 mg PRN Q4HRS PRN NEB SHORTNESS OF BREATH Last administered on 05/21/20at 18:14; Start 05/18/20 at 16:30; Stop 05/31/20 at 16:19; Status DC Guaifenesin (Robitussin) 200 mg PRN Q4HRS PRN PO COUGH Last administered on 05/23/20at 20:00; Start 05/18/20 at 16:30 Enoxaparin Sodium (Lovenox 40mg Syringe) 40 mg Q24H SQ Last administered on 05/31/20at 17:03; Start 05/18/20 at 17:00; Stop 06/01/20 at 10:27; Status DC Aspirin (Ecotrin) 81 mg DAILY PO Last administered on 06/11/20at 08:29; Start 05/19/20 at 09:00; Stop 06/11/20 at 13:19; Status DC Metoprolol Tartrate (Lopressor) 50 mg BID PO Last administered on 05/21/20at 09:16; Start 05/19/20 at 09:00; Stop 05/21/20 at 15:45; Status DC Diclofenac Sodium (Voltaren) 75 mg BID PO Last administered on 06/03/20 20:29; Start 05/19/20 at 10:00; Stop 06/04/20 at 08:03; Status DC Hydralazine HCl (Apresoline) 100 mg BID PO Last administered on 05/21/20at 09:15; Start 05/19/20 at 09:00; Stop 05/21/20 at 15:45; Status DC Lisinopril (Prinivil) 20 mg DAILY PO Last administered on 05/21/20at 09:16; Start 05/19/20 at 10:00; Stop 05/21/20 at 15:45; Status DC Pantoprazole Sodium (Protonix) 40 mg DAILYAC PO Last administered on 06/11/20 08:29; Start 05/19/20 at 10:00; Stop 06/11/20 at 11:58; Status DC Atorvastatin Calcium (Lipitor) 40 mg QHS PO Last administered on 06/12/20at 20:24; Start 05/19/20 at 21:00 Hydrochlorothiazide (Hydrodiuril) 25 mg DAILY PO Last administered on 05/23/20at 08:59; Start 05/19/20 at 10:00; Stop 05/23/20 at 10:22; Status DC Lactobacillus Rhamnosus (Culturelle) 1 cap BID PO Last administered on 06/13/20at 08:13; Start 05/19/20 at 21:00 Insulin Human Lispro (HumaLOG) 0-7 UNITS TIDWMEALS SQ Last administered on 06/10/20at 12:35; Start 05/19/20 at 17:00; Stop 06/10/20 at 17:33; Status DC Dextrose (Dextrose 50%-Water Syringe) 12.5 gm PRN Q15MIN PRN IV SEE COMMENTS Last administered on 06/04/20at 06:52; Start 05/19/20 at 14:15 Methimazole (Tapazole) 5 mg BID PO Last administered on 06/13/20at 08:13; Start 05/20/20 at 10:00 Insulin Glargine (Lantus Syringe) 5 unit DAILY SQ Last administered on 05/22/20at 09:15; Start 05/21/20 at 09:00; Stop 05/22/20 at 21:05; Status DC Doxycycline Hyclate (Vibra-Tab) 100 mg BID PO Last administered on 05/28/20at 08:53; Start 05/21/20 at 15:00; Stop 05/28/20 at 15:02; Status DC Furosemide (Lasix) 20 mg 1X ONCE IVP Last administered on 05/21/20at 17:05; Start 05/21/20 at 17:00; Stop 05/21/20 at 17:01; Status DC Sterile Water (WATER for RESP) 1,000 ml CONT PRN INH VIA VAPOTHERM DEVICE Last administered on 05/23/20at 16:26; Start 05/21/20 at 17:15; Stop 05/30/20 at 12:58; Status DC Albuterol Sulfate (Ventolin Neb Soln) 2.5 mg Q4HRS NEB Last administered on 05/30/20at 15:45; Start 05/21/20 at 20:00; Stop 05/31/20 at 16:19; Status DC Vancomycin HCl (Vanco Per Pharmacy) 1 each PRN DAILY PRN MC SEE COMMENTS Last administered on 05/25/20at 23:52; Start 05/22/20 at 09:00; Stop 05/27/20 at 16:29; Status DC Vancomycin HCl 2 gm/Sodium Chloride 500 ml @ 250 mls/hr 1X ONCE IV Last administered on 05/22/20at 09:05; Start 05/22/20 at 09:00; Stop 05/22/20 at 10:59; Status DC Vancomycin HCl 1.25 gm/Sodium Chloride 250 ml @ 167 mls/hr Q24H IV Last administered on 05/23/20at 09:00; Start 05/23/20 at 09:00; Stop 05/24/20 at 10:05; Status DC Vancomycin HCl (Vancomycin Trough Level) 1 each 1X ONCE MC Last administered on 05/24/20at 08:30; Start 05/24/20 at 08:30; Stop 05/24/20 at 08:31; Status DC Methylprednisolone Sodium Succinate (SOLU-Medrol 125MG VIAL) 80 mg Q8HRS IV Last administered on 05/27/20at 06:04; Start 05/22/20 at 14:00; Stop 05/27/20 at 12:02; Status DC Insulin Glargine (Lantus Syringe) 10 unit BID SQ Last administered on 05/23/20at 09:11; Start 05/22/20 at 21:00; Stop 05/23/20 at 20:17; Status DC Metoprolol Tartrate (Lopressor) 50 mg BID PO Last administered on 06/08/20at 08:23; Start 05/23/20 at 10:30; Stop 06/08/20 at 10:43; Status DC Hydrochlorothiazide (Microzide) 12.5 mg DAILY PO Last administered on 06/13/20at 08:13; Start 05/24/20 at 09:00 Potassium Chloride (Klor-Con) 40 meq Q2H PO Last administered on 05/23/20at 14:58; Start 05/23/20 at 10:30; Stop 05/23/20 at 14:31; Status DC Lisinopril (Prinivil) 40 mg DAILY PO Last administered on 06/13/20at 08:14; Start 05/23/20 at 10:30 Hydralazine HCl (Apresoline) 100 mg BID PO Last administered on 06/12/20at 08:04; Start 05/23/20 at 10:30 Insulin Glargine (Lantus Syringe) 10 unit BID SQ Last administered on 05/24/20at 09:14; Start 05/23/20 at 21:00; Stop 05/24/20 at 11:28; Status DC Vancomycin HCl 1.25 gm/Sodium Chloride 250 ml @ 167 mls/hr Q12H IV Last administered on 05/27/20at 08:21; Start 05/24/20 at 10:30; Stop 05/27/20 at 16:26; Status DC Vancomycin HCl (Vancomycin Trough Level) 1 each 1X ONCE MC Last administered o n 05/25/20at 22:00; Start 05/25/20 at 22:00; Stop 05/25/20 at 22:01; Status DC Insulin Glargine (Lantus Syringe) 12 unit BID SQ ; Start 05/24/20 at 21:00; Stop 05/24/20 at 17:27; Status DC Insulin Glargine (Lantus Syringe) 15 unit BID SQ Last administered on 05/25/20at 08:19; Start 05/24/20 at 21:00; Stop 05/25/20 at 09:47; Status DC Insulin Human Lispro (HumaLOG) 7 units 1X ONCE SQ Last administered on 05/24/20at 18:01; Start 05/24/20 at 17:30; Stop 05/24/20 at 17:31; Status DC Piperacillin Sod/ Tazobactam Sod 3.375 gm/Sodium Chloride 50 ml @ 100 mls/hr Q6HRS IV Last administered on 05/28/20at 12:09; Start 05/24/20 at 18:30; Stop 05/28/20 at 15:01; Status DC Insulin Human Lispro (HumaLOG) 11 units 1X SQ ; Start 05/24/20 at 21:30; Status Cancel Insulin Human Lispro (HumaLOG) 11 units 1X ONCE SQ Last administered on 05/24/20at 22:25; Start 05/24/20 at 22:00; Stop 05/24/20 at 22:01; Status DC Furosemide (Lasix) 20 mg 1X ONCE IVP Last administered on 05/25/20at 11:12; Start 05/25/20 at 10:00; Stop 05/25/20 at 10:01; Status DC Insulin Glargine (Lantus Syringe) 18 unit BID SQ Last administered on 05/27/20at 08:33; Start 05/25/20 at 21:00; Stop 05/27/20 at 12:00; Status DC Midazolam HCl (Versed) 2 mg 1X ONCE IV ; Start 05/25/20 at 10:30; Stop 05/25/20 at 10:31; Status Cancel Fentanyl Citrate (Fentanyl 2ml Vial) 50 mcg 1X ONCE IM ; Start 05/25/20 at 10:30; Stop 05/25/20 at 10:31; Status Cancel Hydralazine HCl (Apresoline Inj) 10 mg PRN Q4HRS PRN IVP ELEVATED BP, SEE COMMENTS Last administered on 06/10/20at 01:08; Start 05/25/20 at 16:15 Potassium Chloride (Klor-Con) 40 meq 1X ONCE PO Last administered on 05/26/20at 18:43; Start 05/26/20 at 18:30; Stop 05/26/20 at 18:31; Status DC Insulin Glargine (Lantus Syringe) 22 unit BID SQ Last administered on 05/29/20at 08:24; Start 05/27/20 at 21:00; Stop 05/29/20 at 12:14; Status DC Methylprednisolone Sodium Succinate (SOLU-Medrol 125MG VIAL) 40 mg Q12HR IV Last administered on 05/28/20at 08:52; Start 05/27/20 at 19:00; Stop 05/28/20 at 13:37; Status DC Nystatin (Nystatin Oral Susp) 5 ml [id number] Last administered on 06/13/20at 08:13; Start 05/27/20 at 17:00 Insulin Human Lispro (HumaLOG) 20 units 1X ONCE SQ Last administered on 05/27/20at 17:32; Start 05/27/20 at 17:30; Stop 05/27/20 at 17:31; Status DC Methylprednisolone Sodium Succinate (SOLU-Medrol 40MG VIAL) 40 mg Q12HR IV Last administered on 05/30/20at 08:34; Start 05/28/20 at 21:00; Stop 05/30/20 at 14:10; Status DC Amoxicillin/ Clavulanate Potassium (Augmentin 875/ 125mg) 1 tab BID PO Last administered on 05/31/20at 19:53; Start 05/28/20 at 21:00; Stop 05/31/20 at 21:01; Status DC Amlodipine Besylate (Norvasc) 2.5 mg DAILY PO Last administered on 06/09/20at 08:40; Start 05/29/20 at 11:45; Stop 06/10/20 at 02:44; Status DC Furosemide (Lasix) 20 mg 1X ONCE PO Last administered on 05/29/20at 12:40; Start 05/29/20 at 12:30; Stop 05/29/20 at 12:31; Status DC Potassium Chloride (Klor-Con) 20 meq 1X ONCE PO Last administered on 05/29/20at 12:40; Start 05/29/20 at 12:30; Stop 05/29/20 at 12:31; Status DC Insulin Glargine (Lantus Syringe) 25 unit BID SQ Last administered on 06/04/20at 07:58; Start 05/29/20 at 21:00; Stop 06/04/20 at 09:20; Status DC Furosemide (Lasix) 40 mg 1X ONCE IVP Last administered on 05/30/20at 11:47; Start 05/30/20 at 11:15; Stop 05/30/20 at 11:16; Status DC Iohexol (Omnipaque 350 Mg/ml) 100 ml 1X ONCE IV Last administered on 05/30/20at 12:00; Start 05/30/20 at 12:00; Stop 05/30/20 at 12:01; Status DC Info (CONTRAST GIVEN -- Rx MONITORING) 1 each PRN DAILY PRN MC SEE COMMENTS; Start 05/30/20 at 12:15; Stop 06/01/20 at 12:14; Status DC Sterile Water (WATER for RESP) 1,000 ml CONT PRN INH VIA VAPOTHERM DEVICE Last administered on 06/12/20at 16:19; Start 05/30/20 at 13:00 Methylprednisolone Sodium Succinate (SOLU-Medrol 125MG VIAL) 125 mg Q12HR IV Last administered on 06/09/20at 08:41; Start 05/30/20 at 14:15; Stop 06/09/20 at 13:11; Status DC Enoxaparin Sodium (Lovenox 40mg Syringe) 40 mg BID SQ Last administered on 06/10/20at 08:15; Start 06/01/20 at 21:00; Stop 06/10/20 at 13:46; Status DC Non-Formulary Medication 1 ea/ Sodium Chloride 210 ml @ 210 mls/hr 1X ONCE IV Last administered on 06/01/20at 17:11; Start 06/01/20 at 16:30; Stop 06/01/20 at 17:29; Status DC Non-Formulary Medication 1 ea/ Sodium Chloride 230 ml @ 460 mls/hr DAILY IV Last administered on 06/05/20at 17:38; Start 06/02/20 at 09:00; Stop 06/05/20 at 09:29; Status DC Potassium Chloride (Klor-Con) 40 meq 1X ONCE PO Last administered on 06/03/20at 09:51; Start 06/03/20 at 08:00; Stop 06/03/20 at 08:01; Status DC Diclofenac Sodium (Voltaren) 75 mg BID PO ; Start 06/04/20 at 08:03; Stop 06/04/20 at 08:04; Status DC Diclofenac Sodium (Voltaren) 75 mg BID PO Last administered on 06/10/20at 21:15; Start 06/04/20 at 09:00; Stop 06/11/20 at 13:19; Status DC Insulin Glargine (Lantus Syringe) 30 unit QHS SQ Last administered on 06/04/20at 21:14; Start 06/04/20 at 21:00; Stop 06/05/20 at 10:25; Status DC Insulin Glargine (Lantus Syringe) 15 unit QHS SQ Last administered on 06/09/20at 21:29; Start 06/05/20 at 21:00; Stop 06/10/20 at 13:46; Status DC Furosemide (Lasix) 40 mg 1X ONCE IVP Last administered on 06/08/20at 11:14; Start 06/08/20 at 11:00; Stop 06/08/20 at 11:02; Status DC Methylprednisolone Sodium Succinate (SOLU-Medrol 125MG VIAL) 60 mg BID IV Last administered on 06/11/20at 08:29; Start 06/09/20 at 21:00; Stop 06/11/20 at 15:22; Status DC Amlodipine Besylate (Norvasc) 10 mg 1X ONCE PO Last administered on 06/10/20at 03:16; Start 06/10/20 at 03:00; Stop 06/10/20 at 03:01; Status DC Amlodipine Besylate (Norvasc) 10 mg DAILY PO Last administered on 06/13/20at 08:14; Start 06/10/20 at 09:00 Hydralazine HCl (Apresoline Inj) 10 mg 1X ONCE IVP Last administered on 06/10/20at 03:16; Start 06/10/20 at 03:00; Stop 06/10/20 at 03:01; Status DC Enoxaparin Sodium (Lovenox 40mg Syringe) 40 mg DAILY SQ Last administered on 06/11/20at 08:28; Start 06/11/20 at 09:00; Stop 06/11/20 at 09:09; Status DC Insulin Glargine (Lantus Syringe) 20 unit QHS SQ Last administered on 06/12/20at 21:02; Start 06/10/20 at 13:45 Insulin Human Lispro (HumaLOG) 0-9 UNITS TIDWMEALS SQ Last administered on 06/11/20at 09:04; Start 06/10/20 at 17:40; Stop 06/11/20 at 08:00; Status DC Pantoprazole Sodium (PROTONIX VIAL for IV PUSH) 40 mg DAILYAC IVP Last administered on 06/13/20at 08:12; Start 06/12/20 at 07:30 Insulin Human Lispro (HumaLOG) 0-9 UNITS TIDWMEALS SQ Last administered on 06/12/20at 17:28; Start 06/11/20 at 13:00 Iohexol (Omnipaque 300 Mg/ml) 75 ml 1X ONCE IV Last administered on 06/11/20at 14:50; Start 06/11/20 at 13:15; Stop 06/11/20 at 13:16; Status DC Info (CONTRAST GIVEN -- Rx MONITORING) 1 each PRN DAILY PRN MC SEE COMMENTS; Start 06/11/20 at 13:15; Stop 06/13/20 at 13:14 Morphine Sulfate (Morphine Sulfate) 2 mg PRN Q2HR PRN IV PAIN Last administered on 06/12/20at 21:07; Start 06/11/20 at 15:15 Methylprednisolone Sodium Succinate (SOLU-Medrol 125MG VIAL) 60 mg DAILY IV Last administered on 06/13/20at 08:12; Start 06/12/20 at 09:00; Stop 06/13/20 at 10:24; Status DC Piperacillin Sod/ Tazobactam Sod 2.25 gm/Sodium Chloride 50 ml @ 100 mls/hr Q8HRS IV Last administered on 06/13/20at 06:30; Start 06/11/20 at 17:00 Lactulose (Lactulose) 30 gm 1X ONCE PO Last administered on 06/11/20at 20:30; Start 06/11/20 at 20:00; Stop 06/11/20 at 20:01; Status DC Polyethylene Glycol (miraLAX PACKET) 17 gm [id number] PO Last administered on 06/12/20at 17:14; Start 06/11/20 at 20:00 Sodium Chloride 500 ml @ 500 mls/hr 1X ONCE IV Last administered on 06/12/20at 13:10; Start 06/12/20 at 13:00; Stop 06/12/20 at 13:59; Status DC Methylprednisolone Sodium Succinate (SOLU-Medrol 125MG VIAL) 40 mg DAILY IV ; Start 06/14/20 at 09:00; Status UNV Active Scripts Active Reported Actos (Pioglitazone Hcl) 45 Mg Tablet 1 Tab PO DAILY 30 Days Diclofenac Sodium 75 Mg Tablet.dr 1 Tab PO BID Klor-Con 10 (Potassium Chloride) 10 Meq Tablet.er 1 Tab PO DAILY 30 Days Metformin Hcl 1,000 Mg Tablet 1,000 Mg PO BIDWMEALS Omeprazole 20 Mg Capsule.dr 1 Cap PO DAILY Lisinopril-Hctz 20-25 Mg Tab (Lisinopril/Hydrochlorothiazide) 1 Each Tablet 1 Tab PO DAILY Aspirin Ec (Aspirin) 81 Mg Tablet.dr 1 Tab PO DAILY Hydralazine Hcl 100 Mg Tablet 1 Tab PO BID Metoprolol Tartrate 50 Mg Tablet 1 Tab PO BID Rosuvastatin Calcium 10 Mg Tablet 10 Mg PO DAILY Vitals/I & O Vital Sign - Last 24 Hours 06/12/20 06/12/20 06/12/20 06/12/20 10:45 11:00 11:44 12:00 Temp 98.9 98.9 Pulse 86 86 Resp B/P (MAP) 94/48 (63) 92/56 (68) Pulse Ox 98 95 99 94 O2 Delivery BiPAP/CPAP BiPAP/CPAP [id number] BiPAP/CPAP 06/12/20 06/12/20 06/12/20 06/12/20 12:00 13:00 14:00 15:00 Pulse 84 81 89 Resp B/P (MAP) 104/61 (75) 95/54 (68) 115/61 (79) Pulse Ox 97 95 95 O2 Delivery Bi-pap BiPAP/CPAP BiPAP/CPAP BiPAP/CPAP 06/12/20 06/12/20 06/12/20 06/12/20 15:33 16:00 16:09 17:00 Temp 98.6 98.6 Pulse 90 82 Resp B/P (MAP) 91/55 (67) 104/74 (84) Pulse Ox 96 93 97 O2 Delivery Bi-pap Vapotherm Vapotherm Vapotherm O2 Flow Rate 40.0 40.0 06/12/20 06/12/20 06/12/20 06/12/20 18:00 19:00 20:00 20:00 Temp 97.3 97.3 Pulse 81 88 82 Resp B/P (MAP) 96/54 (68) 98/51 (67) 111/60 (77) Pulse Ox 100 98 99 94 O2 Delivery Vapotherm Vapotherm Vapotherm VAPOTHERM O2 Flow Rate 40.0 40.0 40.0 40.0 06/12/2018/1806/12/20 20:25 21:00 21:07 21:40 Pulse 82 92 Resp 26 28 B/P (MAP) 111/60 98/48 (65) Pulse Ox 96 100 96 O2 Delivery Vapotherm High Flow Nasal Cannula O2 Flow Rate 40.0 40.0 40.0 06/12/20 06/12/20 06/13/20 06/13/20 22:00 23:15 00:07 00:25 Pulse 62 78 70 Resp 36 25 B/P (MAP) 120/60 (80) 121/59 (79) 113/62 (79) Pulse Ox 96 96 97 94 O2 Delivery Vapotherm Vapotherm Vapotherm VAPOTHERM O2 Flow Rate 40.0 40.0 40.0 40.0 06/13/20 06/13/20 06/13/20 06/13/20 01:00 02:05 03:00 04:00 Temp 97.5 97.5 Pulse 76 70 70 70 Resp 20 19 18 24 B/P (MAP) 112/58 (76) 113/52 (72) 110/55 (73) 106/57 (73) Pulse Ox 96 97 99 98 O2 Delivery Vapotherm Vapotherm Vapotherm Vapotherm O2 Flow Rate 40.0 40.0 40.0 40.0 06/13/20 06/13/20 06/13/20 06/13/20 04:21 05:00 06:00 07:00 Pulse 66 Resp 23 21 23 B/P (MAP) 99/44 (62) 110/54 (72) 115/69 (84) Pulse Ox 96 100 94 92 O2 Delivery VAPOTHERM Vapotherm Vapotherm Vapotherm O2 Flow Rate 40.0 40.0 40.0 40.0 06/13/2006/13/14 06//06/13/20 08:00 08:14 08:14 08:38 Temp 98.0 98.0 Pulse 73 79 Resp 20 B/P (MAP) 134/72 (92) 134/73 134/73 Pulse Ox 92 91 O2 Delivery Vapotherm Vapotherm O2 Flow Rate 40.0 40.0 06/13/20 09:00 Resp 22 B/P (MAP) 129/70 (89) Pulse Ox 94 O2 Delivery Vapotherm O2 Flow Rate 40.0 Intake and Output 06/12/20 06/12/20 06/13/20 15:00 23:00 07:00 Intake Total 550 ml 240 ml Output Total 460 ml 400 ml 275 ml Balance 90 ml -400 ml -35 ml Justicifation of Admission Dx: Justifications for Admission: Justification of Admission Dx: Yes Altered Mental Status: Altered Mental Status KENNEDI CARLSON MD Jun 13, 2020 10:27
--- NOTE | 2020-06-13 11:01 | PDOC ---
PROGRESS NOTES Chief Complaint Chief Complaint ASSESSMENT Acute hypoxic respiratory failure secondary to multifocal infiltrate/pleural effusions Sepsis, POA Hyperthyroidism likely Graves Dz Hypoglycemia,RESOLVED encephalopathy,resolved Severe protein-calorie malnutrition. DM2, HTN urinary retention, maldonado in place COVID + 7/5 - COVID-19 negative on 05/18/2020 and 05/19/2020. Remdesivir given Pneumonia. sputum cx: Resp gerri. Off vanc/Zosyn/doxy. Off Augmentin. back of zosyn given colitis CHF, not in exacerbation Severe protein-calorie malnutrition Gram-positive cocci bacteremia, 05/18/2020, 1 out of 2 bottles, ID MICROCOCCUS SPECIES, likely a contaminant. Bradycardia--holding BB for now Lower GI bleed Colitis Fecal Impaction Stercoral Ulcer Anemia with Hb of 6.1 now plan: now on on vapotherm 40 lpm and 100% fio2.. BM overnight and disimpacted yesterday pain improved. abx restarted per Gen Sx given Colitis. d dimer elevated, but CTA negative for PE.changed lovenox to daily but now GI bleed. continue PPI. hold lovenox .and ASA. apprec gen sx and GI involvement. drop in Hb overnight. transfuse blood today. critically ill, remains in ICU History of Present Illness History of Present Illness lower GI bleed per nurse. hold lovenox. continue PPI. wean steroids if able to but difficult given resp failure. GI consult. HD stable. check h and h Vitals Vitals Vital Signs Date Time Temp Pulse Resp B/P (MAP) Pulse Ox O2 Delivery O2 Flow Rate FiO2 06/13/20 10:00 75 24 112/58 (76) 94 Vapotherm 40.0 06/13/20 08:00 98.0 98.0 Physical Exam Physical Exam GENERAL: Propped up in bed, alert, appears comfortable HEENT: Oral cavity clear NECK: Supple. LUNGS: Diminished aeration, no accessory muscle use HEART: S1, S2. regular ABDOMEN: Obese, soft : Maldonado in place EXTREMITIES: Trace edema lower extremities bilaterally. No cyanosis DERMATOLOGIC: Warm, dry. No generalized rash. PIV General: Alert, Oriented X3 Heart: Other (tachy) Lungs: Crackles Abdomen: Soft (reports tenderness in lower abdomen, no guarding or peritoneal signs, no distension) Extremities: No clubbing, No cyanosis Labs LABS Laboratory Tests Test 7/18/20 13:40 06/12/20 17:22 06/12/20 20:43 06/13/20 05:00 Prothrombin Time 14.2 SEC (11.7-14.0) Prothromb Time International Ratio 1.1 (0.8-1.1) Lactic Acid Level 1.4 mmol/L (0.4-2.0) Glucose (Fingerstick) 360 mg/dL (70-99) 191 mg/dL (70-99) White Blood Count 11.9 x10^3/uL (4.0-11.0) Red Blood Count 2.17 x10^6/uL (3.50-5.40) Hemoglobin 6.1 g/dL (12.0-15.5) Hematocrit 18.4 % (36.0-47.0) Mean Corpuscular Volume 85 fL (79-100) Mean Corpuscular Hemoglobin 28 pg (25-35) Mean Corpuscular Hemoglobin Concent 33 g/dL (31-37) Red Cell Distribution Width 18.8 % (11.5-14.5) Platelet Count 140 x10^3/uL (140-400) Neutrophils (%) (Auto) 89 % (31-73) Lymphocytes (%) (Auto) 6 % (24-48) Monocytes (%) (Auto) 3 % (0-9) Eosinophils (%) (Auto) 2 % (0-3) Basophils (%) (Auto) 0 % (0-3) Neutrophils # (Auto) 10.6 x10^3/uL (1.8-7.7) Lymphocytes # (Auto) 0.7 x10^3/uL (1.0-4.8) Monocytes # (Auto) 0.3 x10^3/uL (0.0-1.1) Eosinophils # (Auto) 0.3 x10^3/uL (0.0-0.7) Basophils # (Auto) 0.0 x10^3/uL (0.0-0.2) Sodium Level 139 mmol/L (136-145) Potassium Level 4.2 mmol/L (3.5-5.1) Chloride Level 106 mmol/L (98-107) Carbon Dioxide Level 29 mmol/L (21-32) Anion Gap 4 (6-14) Blood Urea Nitrogen 30 mg/dL (7-20) Creatinine 0.7 mg/dL (0.6-1.0) Estimated GFR (Cockcroft-Gault) 83.2 Glucose Level 72 mg/dL (70-99) Calcium Level 7.0 mg/dL (8.5-10.1) Test 06/13/20 08:21 Glucose (Fingerstick) 71 mg/dL (70-99) Assessment and Plan Assessmemt and Plan Problems Medical Problems: (1) Altered mental status Status: Acute (2) Hypoglycemia Status: Acute (3) Hypothermia Status: Acute Comment Review of Relevant I have reviewed the following items kavya (where applicable) has been applied. Labs Laboratory Tests Test 06/11/20 11:00 06/11/20 13:00 06/11/20 16:30 06/11/20 18:07 Lactic Acid Level 4.7 mmol/L (0.4-2.0) 1.2 mmol/L (0.4-2.0) Glucose (Fingerstick) 85 mg/dL (70-99) 375 mg/dL (70-99) Test 06/11/20 20:20 06/11/20 20:52 06/12/20 09:08 06/12/20 10:25 Clostridium difficile Toxin (PCR) Negative (NEGATIVE) Glucose (Fingerstick) 195 mg/dL (70-99) 112 mg/dL (70-99) White Blood Count 15.8 x10^3/uL (4.0-11.0) Red Blood Count 2.88 x10^6/uL (3.50-5.40) Hemoglobin 8.0 g/dL (12.0-15.5) Hematocrit 25.0 % (36.0-47.0) Mean Corpuscular Volume 87 fL (79-100) Mean Corpuscular Hemoglobin 28 pg (25-35) Mean Corpuscular Hemoglobin Concent 32 g/dL (31-37) Red Cell Distribution Width 20.1 % (11.5-14.5) Platelet Count 157 x10^3/uL (140-400) Neutrophils (%) (Auto) 94 % (31-73) Lymphocytes (%) (Auto) 2 % (24-48) Monocytes (%) (Auto) 3 % (0-9) Eosinophils (%) (Auto) 1 % (0-3) Basophils (%) (Auto) 0 % (0-3) Neutrophils # (Auto) 14.9 x10^3/uL (1.8-7.7) Lymphocytes # (Auto) 0.3 x10^3/uL (1.0-4.8) Monocytes # (Auto) 0.4 x10^3/uL (0.0-1.1) Eosinophils # (Auto) 0.1 x10^3/uL (0.0-0.7) Basophils # (Auto) 0.0 x10^3/uL (0.0-0.2) Sodium Level 145 mmol/L (136-145) Potassium Level 5.4 mmol/L (3.5-5.1) Chloride Level 107 mmol/L (98-107) Carbon Dioxide Level 31 mmol/L (21-32) Anion Gap 7 (6-14) Blood Urea Nitrogen 26 mg/dL (7-20) Creatinine 0.6 mg/dL (0.6-1.0) Estimated GFR (Cockcroft-Gault) 99.4 BUN/Creatinine Ratio 43 (6-20) Glucose Level 141 mg/dL (70-99) Lactic Acid Level 2.1 mmol/L (0.4-2.0) Calcium Level 7.3 mg/dL (8.5-10.1) Total Bilirubin 0.8 mg/dL (0.2-1.0) Aspartate Amino Transf (AST/SGOT) 45 U/L (15-37) Alanine Aminotransferase (ALT/SGPT) 34 U/L (14-59) Alkaline Phosphatase 146 U/L (46-116) Total Protein 4.9 g/dL (6.4-8.2) Albumin 1.7 g/dL (3.4-5.0) Albumin/Globulin Ratio 0.5 (1.0-1.7) Test 06/12/20 13:40 06/12/20 17:22 06/12/20 20:43 06/13/20 05:00 Prothrombin Time 14.2 SEC (11.7-14.0) Prothromb Time International Ratio 1.1 (0.8-1.1) Lactic Acid Level 1.4 mmol/L (0.4-2.0) Glucose (Fingerstick) 360 mg/dL (70-99) 191 mg/dL (70-99) White Blood Count 11.9 x10^3/uL (4.0-11.0) Red Blood Count 2.17 x10^6/uL (3.50-5.40) Hemoglobin 6.1 g/dL (12.0-15.5) Hematocrit 18.4 % (36.0-47.0) Mean Corpuscular Volume 85 fL (79-100) Mean Corpuscular Hemoglobin 28 pg (25-35) Mean Corpuscular Hemoglobin Concent 33 g/dL (31-37) Red Cell Distribution Width 18.8 % (11.5-14.5) Platelet Count 140 x10^3/uL (140-400) Neutrophils (%) (Auto) 89 % (31-73) Lymphocytes (%) (Auto) 6 % (24-48) Monocytes (%) (Auto) 3 % (0-9) Eosinophils (%) (Auto) 2 % (0-3) Basophils (%) (Auto) 0 % (0-3) Neutrophils # (Auto) 10.6 x10^3/uL (1.8-7.7) Lymphocytes # (Auto) 0.7 x10^3/uL (1.0-4.8) Monocytes # (Auto) 0.3 x10^3/uL (0.0-1.1) Eosinophils # (Auto) 0.3 x10^3/uL (0.0-0.7) Basophils # (Auto) 0.0 x10^3/uL (0.0-0.2) Sodium Level 139 mmol/L (136-145) Potassium Level 4.2 mmol/L (3.5-5.1) Chloride Level 106 mmol/L (98-107) Carbon Dioxide Level 29 mmol/L (21-32) Anion Gap 4 (6-14) Blood Urea Nitrogen 30 mg/dL (7-20) Creatinine 0.7 mg/dL (0.6-1.0) Estimated GFR (Cockcroft-Gault) 83.2 Glucose Level 72 mg/dL (70-99) Calcium Level 7.0 mg/dL (8.5-10.1) Test 06/13/20 08:21 Glucose (Fingerstick) 71 mg/dL (70-99) Laboratory Tests Test 06/12/20 13:40 06/12/20 17:22 06/12/20 20:43 06/13/20 05:00 Prothrombin Time 14.2 SEC (11.7-14.0) Prothromb Time International Ratio 1.1 (0.8-1.1) Lactic Acid Level 1.4 mmol/L (0.4-2.0) Glucose (Fingerstick) 360 mg/dL (70-99) 191 mg/dL (70-99) White Blood Count 11.9 x10^3/uL (4.0-11.0) Red Blood Count 2.17 x10^6/uL (3.50-5.40) Hemoglobin 6.1 g/dL (12.0-15.5) Hematocrit 18.4 % (36.0-47.0) Mean Corpuscular Volume 85 fL (79-100) Mean Corpuscular Hemoglobin 28 pg (25-35) Mean Corpuscular Hemoglobin Concent 33 g/dL (31-37) Red Cell Distribution Width 18.8 % (11.5-14.5) Platelet Count 140 x10^3/uL (140-400) Neutrophils (%) (Auto) 89 % (31-73) Lymphocytes (%) (Auto) 6 % (24-48) Monocytes (%) (Auto) 3 % (0-9) Eosinophils (%) (Auto) 2 % (0-3) Basophils (%) (Auto) 0 % (0-3) Neutrophils # (Auto) 10.6 x10^3/uL (1.8-7.7) Lymphocytes # (Auto) 0.7 x10^3/uL (1.0-4.8) Monocytes # (Auto) 0.3 x10^3/uL (0.0-1.1) Eosinophils # (Auto) 0.3 x10^3/uL (0.0-0.7) Basophils # (Auto) 0.0 x10^3/uL (0.0-0.2) Sodium Level 139 mmol/L (136-145) Potassium Level 4.2 mmol/L (3.5-5.1) Chloride Level 106 mmol/L (98-107) Carbon Dioxide Level 29 mmol/L (21-32) Anion Gap 4 (6-14) Blood Urea Nitrogen 30 mg/dL (7-20) Creatinine 0.7 mg/dL (0.6-1.0) Estimated GFR (Cockcroft-Gault) 83.2 Glucose Level 72 mg/dL (70-99) Calcium Level 7.0 mg/dL (8.5-10.1) Test 06/13/20 08:21 Glucose (Fingerstick) 71 mg/dL (70-99) Microbiology 05/26/20 Gram Stain Evaluation - Final, Complete 05/26/20 Respiratory Culture - Final, Complete 05/24/20 Blood Culture - Final, Complete NO GROWTH AFTER 5 DAYS 05/18/20 Urine Culture - Final, Complete Medications Current Medications Sodium Chloride 1,000 ml @ 1,000 mls/hr 1X ONCE IV Last administered on 05/18/20at 09:29; Start 05/18/20 at 09:15; Stop 05/18/20 at 10:14; Status DC Ceftriaxone Sodium (Rocephin) 1 gm 1X ONCE IVP Last administered on 05/18/20at 09:28; Start 05/18/20 at 09:15; Stop 05/18/20 at 09:16; Status DC Ondansetron HCl (Zofran) 4 mg PRN Q8HRS PRN IV NAUSEA/VOMITING; Start 05/18/20 at 10:15; Stop 05/18/20 at 16:24; Status DC Acetaminophen (Tylenol) 650 mg PRN Q4HRS PRN PO FEVER > 100.3'F; Start 05/18/20 at 10:15; Stop 05/18/20 at 16:24; Status DC Ceftriaxone Sodium (Rocephin) 1 gm Q24H IVP Last administered on 05/24/20at 09:09; Start 05/19/20 at 09:00; Stop 05/24/20 at 18:10; Status DC Sodium Chloride (Normal Saline Flush) 3 ml QSHIFT PRN IV AFTER MEDS AND BLOOD DRAWS; Start 05/18/20 at 16:30 Sodium Chloride 1,000 ml @ 85 mls/hr [id number] IV Last administered on 05/24/20at 18:31; Start 05/18/20 at 16:20; Stop 05/25/20 at 09:44; Status DC Ondansetron HCl (Zofran) 4 mg PRN Q4HRS PRN IV NAUSEA/VOMITING; Start 05/18/20 at 16:30 Acetaminophen (Tylenol) 650 mg PRN Q4HRS PRN PO TEMP OVER 100.4F OR MILD PAIN Last administered on 06/10/20at 12:33; Start 05/18/20 at 16:30 Acetaminophen (Tylenol Supp) 650 mg PRN Q4HRS PRN OH TEMP OVER 100.4F OR MILD PAIN; Start 05/18/20 at 16:30 Sodium Monofluorophosphate (Fleet Adult) 133 ml PRN DAILY PRN OH CONSTIPATION Last administered on 06/12/20at 11:09; Start 05/18/20 at 16:30 Docusate Sodium (Colace) 100 mg PRN BID PRN PO HARD STOOLS Last administered on 06/10/20at 22:32; Start 05/18/20 at 16:30 Albuterol Sulfate (Ventolin Neb Soln) 2.5 mg PRN Q4HRS PRN NEB SHORTNESS OF BREATH Last administered on 05/21/20at 18:14; Start 05/18/20 at 16:30; Stop at 16:19; Status DC Guaifenesin (Robitussin) 200 mg PRN Q4HRS PRN PO COUGH Last administered on 05/23/20at 20:00; Start 05/18/20 at 16:30 Enoxaparin Sodium (Lovenox 40mg Syringe) 40 mg Q24H SQ Last administered on 05/31/20at 17:03; Start 05/18/20 at 17:00; Stop 06/01/20 at 10:27; Status DC Aspirin (Ecotrin) 81 mg DAILY PO Last administered on 06/11/20at 08:29; Start 05/19/20 at 09:00; Stop 06/11/20 at 13:19; Status DC Metoprolol Tartrate (Lopressor) 50 mg BID PO Last administered on 05/21/20at 09:16; Start 05/19/20 at 09:00; Stop 05/21/20 at 15:45; Status DC Diclofenac Sodium (Voltaren) 75 mg BID PO Last administered on 06/03/20at 20:29; Start 05/19/20 at 10:00; Stop 06/04/20 at 08:03; Status DC Hydralazine HCl (Apresoline) 100 mg BID PO Last administered on 05/21/20at 09:15; Start 05/19/20 at 09:00; Stop 05/21/20 at 15:45; Status DC Lisinopril (Prinivil) 20 mg DAILY PO Last administered on 05/21/20at 09:16; Start 05/19/20 at 10:00; Stop 05/21/20 at 15:45; Status DC Pantoprazole Sodium (Protonix) 40 mg DAILYAC PO Last administered on 06/11/20at 08:29; Start 05/19/20 at 10:00; Stop 06/11/20 at 11:58; Status DC Atorvastatin Calcium (Lipitor) 40 mg QHS PO Last administered on 06/12/20at 20:24; Start 05/19/20 at 21:00 Hydrochlorothiazide (Hydrodiuril) 25 mg DAILY PO Last administered on 05/23/20at 08:59; Start 05/19/20 at 10:00; Stop 05/23/20 at 10:22; Status DC Lactobacillus Rhamnosus (Culturelle) 1 cap BID PO Last administered on 06/13/20at 08:13; Start 05/19/20 at 21:00 Insulin Human Lispro (HumaLOG) 0-7 UNITS TIDWMEALS SQ Last administered on 06/10/20at 12:35; Start 05/19/20 at 17:00; Stop 06/10/20 at 17:33; Status DC Dextrose (Dextrose 50%-Water Syringe) 12.5 gm PRN Q15MIN PRN IV SEE COMMENTS Last administered on 06/04/20at 06:52; Start 05/19/20 at 14:15 Methimazole (Tapazole) 5 mg BID PO Last administered on 06/13/20at 08:13; Start 05/20/20 at 10:00 Insulin Glargine (Lantus Syringe) 5 unit DAILY SQ Last administered on 05/22/20at 09:15; Start 05/21/20 at 09:00; Stop 05/22/20 at 21:05; Status DC Doxycycline Hyclate (Vibra-Tab) 100 mg BID PO Last administered on 05/28/20at 08:53; Start 05/21/20 at 15:00; Stop 05/28/20 at 15:02; Status DC Furosemide (Lasix) 20 mg 1X ONCE IVP Last administered on 05/21/20at 17:05; Start 05/21/20 at 17:00; Stop 05/21/20 at 17:01; Status DC Sterile Water (WATER for RESP) 1,000 ml CONT PRN INH VIA VAPOTHERM DEVICE Last administered on 05/23/20at 16:26; Start 05/21/20 at 17:15; Stop 05/30/20 at 12:58; Status DC Albuterol Sulfate (Ventolin Neb Soln) 2.5 mg Q4HRS NEB Last administered on 05/30/20at 15:45; Start 05/21/20 at 20:00; Stop 05/31/20 at 16:19; Status DC Vancomycin HCl (Vanco Per Pharmacy) 1 each PRN DAILY PRN MC SEE COMMENTS Last administered on 05/25/20at 23:52; Start 05/22/20 at 09:00; Stop 05/27/20 at 16:29; Status DC Vancomycin HCl 2 gm/Sodium Chloride 500 ml @ 250 mls/hr 1X ONCE IV Last administered on 05/22/20at 09:05; Start 05/22/20 at 09:00; Stop 05/22/20 at 10:59; Status DC Vancomycin HCl 1.25 gm/Sodium Chloride 250 ml @ 167 mls/hr Q24H IV Last administered on 05/23/20at 09:00; Start 05/23/20 at 09:00; Stop 05/24/20 at 10:05; Status DC Vancomycin HCl (Vancomycin Trough Level) 1 each 1X ONCE MC Last administered on 05/24/20at 08:30; Start 05/24/20 at 08:30; Stop 05/24/20 at 08:31; Status DC Methylprednisolone Sodium Succinate (SOLU-Medrol 125MG VIAL) 80 mg Q8HRS IV Last administered on 05/27/20at 06:04; Start 05/22/20 at 14:00; Stop 05/27/20 at 12:02; Status DC Insulin Glargine (Lantus Syringe) 10 unit BID SQ Last administered on 05/23/20at 09:11; Start 05/22/20 at 21:00; Stop 05/23/20 at 20:17; Status DC Metoprolol Tartrate (Lopressor) 50 mg BID PO Last administered on 06/08/20at 08:23; Start 05/23/20 at 10:30; Stop 06/08/20 at 10:43; Status DC Hydrochlorothiazide (Microzide) 12.5 mg DAILY PO Last administered on 06/13/20at 08:13; Start 05/24/20 at 09:00 Potassium Chloride (Klor-Con) 40 meq Q2H PO Last administered on 05/23/20at 14:58; Start 05/23/20 at 10:30; Stop 05/23/20 at 14:31; Status DC Lisinopril (Prinivil) 40 mg DAILY PO Last administered on 06/13/20at 08:14; Start 05/23/20 at 10:30 Hydralazine HCl (Apresoline) 100 mg BID PO Last administered on 06/12/20at 08:04; Start 05/23/20 at 10:30 Insulin Glargine (Lantus Syringe) 10 unit BID SQ Last administered on 05/24/20at 09:14; Start 05/23/20 at 21:00; Stop 05/24/20 at 11:28; Status DC Vancomycin HCl 1.25 gm/Sodium Chloride 250 ml @ 167 mls/hr Q12H IV Last administered on 05/27/20at 08:21; Start 05/24/20 at 10:30; Stop 05/27/20 at 16:26; Status DC Vancomycin HCl (Vancomycin Trough Level) 1 each 1X ONCE MC Last administered on 05/25/20at 22:00; Start 05/25/20 at 22:00; Stop 05/25/20 at 22:01; Status DC Insulin Glargine (Lantus Syringe) 12 unit BID SQ ; Start 05/24/20 at 21:00; Stop 05/24/20 at 17:27; Status DC Insulin Glargine (Lantus Syringe) 15 unit BID SQ Last administered on 05/25/20at 08:19; Start 05/24/20 at 21:00; Stop 05/25/20 at 09:47; Status DC Insulin Human Lispro (HumaLOG) 7 units 1X ONCE SQ Last administered on 05/24/20at 18:01; Start 05/24/20 at 17:30; Stop 05/24/20 at 17:31; Status DC Piperacillin Sod/ Tazobactam Sod 3.375 gm/Sodium Chloride 50 ml @ 100 mls/hr Q6HRS IV Last administered on 05/28/20at 12:09; Start 05/24/20 at 18:30; Stop 05/28/20 at 15:01; Status DC Insulin Human Lispro (HumaLOG) 11 units 1X SQ ; Start 05/24/20 at 21:30; Status Cancel Insulin Human Lispro (HumaLOG) 11 units 1X ONCE SQ Last administered on 05/24/20at 22:25; Start 05/24/20 at 22:00; Stop 05/24/20 at 22:01; Status DC Furosemide (Lasix) 20 mg 1X ONCE IVP Last administered on 05/25/20at 11:12; Start 05/25/20 at 10:00; Stop 05/25/20 at 10:01; Status DC Insulin Glargine (Lantus Syringe) 18 unit BID SQ Last administered on 05/27/20at 08:33; Start 05/25/20 at 21:00; Stop 05/27/20 at 12:00; Status DC Midazolam HCl (Versed) 2 mg 1X ONCE IV ; Start 05/25/20 at 10:30; Stop 05/25/20 at 10:31; Status Cancel Fentanyl Citrate (Fentanyl 2ml Vial) 50 mcg 1X ONCE IM ; Start 05/25/20 at 10:30; Stop 05/25/20 at 10:31; Status Cancel Hydralazine HCl (Apresoline Inj) 10 mg PRN Q4HRS PRN IVP ELEVATED BP, SEE COMMENTS Last administered on 06/10/20at 01:08; Start 05/25/20 at 16:15 Potassium Chloride (Klor-Con) 40 meq 1X ONCE PO Last administered on 05/26/20at 18:43; Start 05/26/20 at 18:30; Stop 05/26/20 at 18:31; Status DC Insulin Glargine (Lantus Syringe) 22 unit BID SQ Last administered on 05/29/20at 08:24; Start 05/27/20 at 21:00; Stop 05/29/20 at 12:14; Status DC Methylprednisolone Sodium Succinate (SOLU-Medrol 125MG VIAL) 40 mg Q12HR IV Last administered on 05/28/20at 08:52; Start 05/27/20 at 19:00; Stop 05/28/20 at 13:37; Status DC Nystatin (Nystatin Oral Susp) 5 ml [id number] Last administered on 06/13/20at 08:13; Start 05/27/20 at 17:00 Insulin Human Lispro (HumaLOG) 20 units 1X ONCE SQ Last administered on 05/27/20at 17:32; Start 05/27/20 at 17:30; Stop 05/27/20 at 17:31; Status DC Methylprednisolone Sodium Succinate (SOLU-Medrol 40MG VIAL) 40 mg Q12HR IV Last administered on 05/30/20at 08:34; Start 05/28/20 at 21:00; Stop 05/30/20 at 14:10; Status DC Amoxicillin/ Clavulanate Potassium (Augmentin 875/ 125mg) 1 tab BID PO Last administered on 05/31/20at 19:53; Start 05/28/20 at 21:00; Stop 05/31/20 at 21:01; Status DC Amlodipine Besylate (Norvasc) 2.5 mg DAILY PO Last administered on 06/09/20at 08:40; Start 05/29/20 at 11:45; Stop 06/10/20 at 02:44; Status DC Furosemide (Lasix) 20 mg 1X ONCE PO Last administered on 05/29/20at 12:40; Start 05/29/20 at 12:30; Stop 05/29/20 at 12:31; Status DC Potassium Chloride (Klor-Con) 20 meq 1X ONCE PO Last administered on 05/29/20at 12:40; Start 05/29/20 at 12:30; Stop 05/29/20 at 12:31; Status DC Insulin Glargine (Lantus Syringe) 25 unit BID SQ Last administered on 06/04/20at 07:58; Start 05/29/20 at 21:00; Stop 06/04/20 at 09:20; Status DC Furosemide (Lasix) 40 mg 1X ONCE IVP Last administered on 05/30/20at 11:47; Start 05/30/20 at 11:15; Stop 05/30/20 at 11:16; Status DC Iohexol (Omnipaque 350 Mg/ml) 100 ml 1X ONCE IV Last administered on 05/30/20at 12:00; Start 05/30/20 at 12:00; Stop 05/30/20 at 12:01; Status DC Info (CONTRAST GIVEN -- Rx MONITORING) 1 each PRN DAILY PRN MC SEE COMMENTS; Start 05/30/20 at 12:15; Stop 06/01/20 at 12:14; Status DC Sterile Water (WATER for RESP) 1,000 ml CONT PRN INH VIA VAPOTHERM DEVICE Last administered on 06/12/20at 16:19; Start 05/30/20 at 13:00 Methylprednisolone Sodium Succinate (SOLU-Medrol 125MG VIAL) 125 mg Q12HR IV Last administered on 06/09/20at 08:41; Start 05/30/20 at 14:15; Stop 06/09/20 at 13:11; Status DC Enoxaparin Sodium (Lovenox 40mg Syringe) 40 mg BID SQ Last administered on 06/10/20at 08:15; Start 06/01/20 at 21:00; Stop 06/10/20 at 13:46; Status DC Non-Formulary Medication 1 ea/ Sodium Chloride 210 ml @ 210 mls/hr 1X ONCE IV Last administered on 06/01/20at 17:11; Start 06/01/20 at 16:30; Stop 06/01/20 at 17:29; Status DC Non-Formulary Medication 1 ea/ Sodium Chloride 230 ml @ 460 mls/hr DAILY IV Last administered on 06/05/20at 17:38; Start 06/02/20 at 09:00; Stop 06/05/20 at 09:29; Status DC Potassium Chloride (Klor-Con) 40 meq 1X ONCE PO Last administered on 06/03/20at 09:51; Start 06/03/20 at 08:00; Stop 06/03/20 at 08:01; Status DC Diclofenac Sodium (Voltaren) 75 mg BID PO ; Start 06/04/20 at 08:03; Stop 06/04/20 at 08:04; Status DC Diclofenac Sodium (Voltaren) 75 mg BID PO Last administered on 06/10/20at 21:15; Start 06/04/20 at 09:00; Stop 06/11/20 at 13:19; Status DC Insulin Glargine (Lantus Syringe) 30 unit QHS SQ Last administered on 06/04/20at 21:14; Start 06/04/20 at 21:00; Stop 06/05/20 at 10:25; Status DC Insulin Glargine (Lantus Syringe) 15 unit QHS SQ Last administered on 06/09/20at 21:29; Start 06/05/20 at 21:00; Stop 06/10/20 at 13:46; Status DC Furosemide (Lasix) 40 mg 1X ONCE IVP Last administered on 06/08/20at 11:14; Start 06/08/20 at 11:00; Stop 06/08/20 at 11:02; Status DC Methylprednisolone Sodium Succinate (SOLU-Medrol 125MG VIAL) 60 mg BID IV Last administered on 06/11/20at 08:29; Start 06/09/20 at 21:00; Stop 06/11/20 at 15:22; Status DC Amlodipine Besylate (Norvasc) 10 mg 1X ONCE PO Last administered on 06/10/20at 03:16; Start 06/10/20 at 03:00; Stop 06/10/20 at 03:01; Status DC Amlodipine Besylate (Norvasc) 10 mg DAILY PO Last administered on 06/13/20at 08:14; Start 06/10/20 at 09:00 Hydralazine HCl (Apresoline Inj) 10 mg 1X ONCE IVP Last administered on 06/10/20at 03:16; Start 06/10/20 at 03:00; Stop 06/10/20 at 03:01; Status DC Enoxaparin Sodium (Lovenox 40mg Syringe) 40 mg DAILY SQ Last administered on 06/11/20at 08:28; Start 06/11/20 at 09:00; Stop 06/11/20 at 09:09; Status DC Insulin Glargine (Lantus Syringe) 20 unit QHS SQ Last administered on 06/12/20at 21:02; Start 06/10/20 at 13:45 Insulin Human Lispro (HumaLOG) 0-9 UNITS TIDWMEALS SQ Last administered on 06/11/20at 09:04; Start 06/10/20 at 17:40; Stop 06/11/20 at 08:00; Status DC Pantoprazole Sodium (PROTONIX VIAL for IV PUSH) 40 mg DAILYAC IVP Last administered on 06/13/20at 08:12; Start 06/12/20 at 07:30 Insulin Human Lispro (HumaLOG) 0-9 UNITS TIDWMEALS SQ Last administered on 06/12/20at 17:28; Start 06/11/20 at 13:00 Iohexol (Omnipaque 300 Mg/ml) 75 ml 1X ONCE IV Last administered on 06/11/20at 14:50; Start 06/11/20 at 13:15; Stop 06/11/20 at 13:16; Status DC Info (CONTRAST GIVEN -- Rx MONITORING) 1 each PRN DAILY PRN MC SEE COMMENTS; Start 06/11/20 at 13:15; Stop 06/13/20 at 13:14 Morphine Sulfate (Morphine Sulfate) 2 mg PRN Q2HR PRN IV PAIN Last administered on 06/12/20at 21:07; Start 06/11/20 at 15:15 Methylprednisolone Sodium Succinate (SOLU-Medrol 125MG VIAL) 60 mg DAILY IV Last administered on 06/13/20at 08:12; Start 06/12/20 at 09:00; Stop 06/13/20 at 10:24; Status DC Piperacillin Sod/ Tazobactam Sod 2.25 gm/Sodium Chloride 50 ml @ 100 mls/hr Q8HRS IV Last administered on 06/13/20at 06:30; Start 06/11/20 at 17:00 Lactulose (Lactulose) 30 gm 1X ONCE PO Last administered on 06/11/20at 20:30; Start 06/11/20 at 20:00; Stop 06/11/20 at 20:01; Status DC Polyethylene Glycol (miraLAX PACKET) 17 gm [id number] PO Last administered on 06/12/20at 17:14; Start 06/11/20 at 20:00 Sodium Chloride 500 ml @ 500 mls/hr 1X ONCE IV Last administered on 06/12/20at 13:10; Start 06/12/20 at 13:00; Stop 06/12/20 at 13:59; Status DC Methylprednisolone Sodium Succinate (SOLU-Medrol 40MG VIAL) 40 mg DAILY IV ; Start 06/14/20 at 09:00 Active Scripts Active Reported Actos (Pioglitazone Hcl) 45 Mg Tablet 1 Tab PO DAILY 30 Days Diclofenac Sodium 75 Mg Tablet. 1 Tab PO BID Klor-Con 10 (Potassium Chloride) 10 Meq Tablet.er 1 Tab PO DAILY 30 Days Metformin Hcl 1,000 Mg Tablet 1,000 Mg PO BIDWMEALS Omeprazole 20 Mg Capsule. 1 Cap PO DAILY Lisinopril-Hctz 20-25 Mg Tab (Lisinopril/Hydrochlorothiazide) 1 Each Tablet 1 Tab PO DAILY Aspirin Ec (Aspirin) 81 Mg Tablet. 1 Tab PO DAILY Hydralazine Hcl 100 Mg Tablet 1 Tab PO BID Metoprolol Tartrate 50 Mg Tablet 1 Tab PO BID Rosuvastatin Calcium 10 Mg Tablet 10 Mg PO DAILY Vitals/I & O Vital Sign - Last 24 Hours 06/12/20 06/12/20 06/12/20 06/12/20 11:00 11:44 12:00 12:00 Temp 98.9 98.9 Pulse 86 86 Resp B/P (MAP) 94/48 (63) 92/56 (68) Pulse Ox 95 99 94 O2 Delivery BiPAP/CPAP [id number] BiPAP/CPAP Bi-pap 06/12/20 06/12/20 06/12/20 06/12/20 13:00 14:00 15:00 15:33 Pulse 84 81 89 Resp B/P (MAP) 104/61 (75) 95/54 (68) 115/61 (79) Pulse Ox 97 95 95 O2 Delivery BiPAP/CPAP BiPAP/CPAP BiPAP/CPAP Bi-pap 06/12/20 06/12/20 06/12/20 06/12/20 16:00 16:09 17:00 18:00 Temp 98.6 98.6 Pulse 90 82 81 Resp B/P (MAP) 91/55 (67) 104/74 (84) 96/54 (68) Pulse Ox 96 93 97 100 O2 Delivery Vapotherm Vapotherm Vapotherm Vapotherm O2 Flow Rate 40.0 40.0 40.0 06/12/20 06/12/20 06/12/20 06/12/20 19:00 20:00 20:00 20:25 Temp 97.3 97.3 Pulse 88 82 82 B/P (MAP) 98/51 (67) 111/60 (77) 111/60 Pulse Ox 98 99 94 O2 Delivery Vapotherm Vapotherm VAPOTHERM O2 Flow Rate 40.0 40.0 40.0 06/12/20 06/12/20 06/12/20 06/12/20 21:00 21:07 21:40 22:00 Pulse 92 62 Resp 26 28 36 B/P (MAP) 98/48 (65) 120/60 (80) Pulse Ox 96 100 96 96 O2 Delivery Vapotherm High Flow Nasal Cannula Vapotherm O2 Flow Rate 40.0 40.0 40.0 40.0 06/12/20 06/13/20 06/13/20 06/13/20 23:15 00:07 00:25 01:00 Pulse 78 70 76 Resp 25 20 B/P (MAP) 121/59 (79) 113/62 (79) 112/58 (76) Pulse Ox 96 97 94 96 O2 Delivery Vapotherm Vapotherm VAPOTHERM Vapotherm O2 Flow Rate 40.0 40.0 40.0 40.0 06/13/20 06/13/20 06/13/20 06/13/20 02:05 03:00 04:00 04:21 Temp 97.5 97.5 Pulse 70 70 70 Resp 19 18 24 B/P (MAP) 113/52 (72) 110/55 (73) 106/57 (73) Pulse Ox 97 99 98 96 O2 Delivery Vapotherm Vapotherm Vapotherm VAPOTHERM O2 Flow Rate 40.0 40.0 40.0 40.0 06/13/20 06/13/20 06/13/20 06/13/20 05:00 06:00 07:00 08:00 Temp 98.0 98.0 Pulse 66 Resp 23 21 23 20 B/P (MAP) 99/44 (62) 110/54 (72) 115/69 (84) 134/72 (92) Pulse Ox 100 94 92 92 O2 Delivery Vapotherm Vapotherm Vapotherm Vapotherm O2 Flow Rate 40.0 40.0 40.0 40.0 06/13/20 06/13/20 06/13/20 06/13/20 08:14 08:14 08:38 09:00 Pulse 73 79 Resp 22 B/P (MAP) 134/73 134/73 129/70 (89) Pulse Ox 91 94 O2 Delivery Vapotherm Vapotherm O2 Flow Rate 40.0 40.0 06/13/20 10:00 Pulse 75 Resp 24 B/P (MAP) 112/58 (76) Pulse Ox 94 O2 Delivery Vapotherm O2 Flow Rate 40.0 Intake and Output 06/12/20 06/12/20 06/13/20 15:00 23:00 07:00 Intake Total 550 ml 240 ml Output Total 460 ml 400 ml 275 ml Balance 90 ml -400 ml -35 ml Justicifation of Admission Dx: Justifications for Admission: Justification of Admission Dx: Yes Altered Mental Status: Altered Mental Status SUYAPA MCCORMICK MD Jun 13, 2020 11:00
--- NOTE | 2020-06-13 13:53 | PDOC ---
G I PROGRESS NOTE Reason for Follow-up Rectal bleed/constipation Subjective No new complaints Physical Exam Lungs decreased BS CV S S2 ABD +BS, soft, decreased tenderness Review of Relevant I have reviewed the following items kavya (where applicable) has been applied. Labs Laboratory Tests Test 06/11/20 16:30 06/11/20 18:07 06/11/20 20:20 06/11/20 20:52 Lactic Acid Level 1.2 mmol/L (0.4-2.0) Glucose (Fingerstick) 375 mg/dL (70-99) 195 mg/dL (70-99) Clostridium difficile Toxin (PCR) Negative (NEGATIVE) Test 06/12/20 09:08 06/12/20 10:25 06/12/20 13:40 06/12/20 17:22 Glucose (Fingerstick) 112 mg/dL (70-99) 360 mg/dL (70-99) White Blood Count 15.8 x10^3/uL (4.0-11.0) Red Blood Count 2.88 x10^6/uL (3.50-5.40) Hemoglobin 8.0 g/dL (12.0-15.5) Hematocrit 25.0 % (36.0-47.0) Mean Corpuscular Volume 87 fL (79-100) Mean Corpuscular Hemoglobin 28 pg (25-35) Mean Corpuscular Hemoglobin Concent 32 g/dL (31-37) Red Cell Distribution Width 20.1 % (11.5-14.5) Platelet Count 157 x10^3/uL (140-400) Neutrophils (%) (Auto) 94 % (31-73) Lymphocytes (%) (Auto) 2 % (24-48) Monocytes (%) (Auto) 3 % (0-9) Eosinophils (%) (Auto) 1 % (0-3) Basophils (%) (Auto) 0 % (0-3) Neutrophils # (Auto) 14.9 x10^3/uL (1.8-7.7) Lymphocytes # (Auto) 0.3 x10^3/uL (1.0-4.8) Monocytes # (Auto) 0.4 x10^3/uL (0.0-1.1) Eosinophils # (Auto) 0.1 x10^3/uL (0.0-0.7) Basophils # (Auto) 0.0 x10^3/uL (0.0-0.2) Sodium Level 145 mmol/L (136-145) Potassium Level 5.4 mmol/L (3.5-5.1) Chloride Level 107 mmol/L (98-107) Carbon Dioxide Level 31 mmol/L (21-32) Anion Gap 7 (6-14) Blood Urea Nitrogen 26 mg/dL (7-20) Creatinine 0.6 mg/dL (0.6-1.0) Estimated GFR (Cockcroft-Gault) 99.4 BUN/Creatinine Ratio 43 (6-20) Glucose Level 141 mg/dL (70-99) Lactic Acid Level 2.1 mmol/L (0.4-2.0) 1.4 mmol/L (0.4-2.0) Calcium Level 7.3 mg/dL (8.5-10.1) Total Bilirubin 0.8 mg/dL (0.2-1.0) Aspartate Amino Transf (AST/SGOT) 45 U/L (15-37) Alanine Aminotransferase (ALT/SGPT) 34 U/L (14-59) Alkaline Phosphatase 146 U/L (46-116) Total Protein 4.9 g/dL (6.4-8.2) Albumin 1.7 g/dL (3.4-5.0) Albumin/Globulin Ratio 0.5 (1.0-1.7) Prothrombin Time 14.2 SEC (11.7-14.0) Prothromb Time International Ratio 1.1 (0.8-1.1) Test 06/12/20 20:43 06/13/20 05:00 06/13/20 08:21 Glucose (Fingerstick) 191 mg/dL (70-99) 71 mg/dL (70-99) White Blood Count 11.9 x10^3/uL (4.0-11.0) Red Blood Count 2.17 x10^6/uL (3.50-5.40) Hemoglobin 6.1 g/dL (12.0-15.5) Hematocrit 18.4 % (36.0-47.0) Mean Corpuscular Volume 85 fL (79-100) Mean Corpuscular Hemoglobin 28 pg (25-35) Mean Corpuscular Hemoglobin Concent 33 g/dL (31-37) Red Cell Distribution Width 18.8 % (11.5-14.5) Platelet Count 140 x10^3/uL (140-400) Neutrophils (%) (Auto) 89 % (31-73) Lymphocytes (%) (Auto) 6 % (24-48) Monocytes (%) (Auto) 3 % (0-9) Eosinophils (%) (Auto) 2 % (0-3) Basophils (%) (Auto) 0 % (0-3) Neutrophils # (Auto) 10.6 x10^3/uL (1.8-7.7) Lymphocytes # (Auto) 0.7 x10^3/uL (1.0-4.8) Monocytes # (Auto) 0.3 x10^3/uL (0.0-1.1) Eosinophils # (Auto) 0.3 x10^3/uL (0.0-0.7) Basophils # (Auto) 0.0 x10^3/uL (0.0-0.2) Sodium Level 139 mmol/L (136-145) Potassium Level 4.2 mmol/L (3.5-5.1) Chloride Level 106 mmol/L (98-107) Carbon Dioxide Level 29 mmol/L (21-32) Anion Gap 4 (6-14) Blood Urea Nitrogen 30 mg/dL (7-20) Creatinine 0.7 mg/dL (0.6-1.0) Estimated GFR (Cockcroft-Gault) 83.2 Glucose Level 72 mg/dL (70-99) Calcium Level 7.0 mg/dL (8.5-10.1) Laboratory Tests Test 06/12/20 17:22 06/12/20 20:43 06/13/20 05:00 06/13/20 08:21 Glucose (Fingerstick) 360 mg/dL (70-99) 191 mg/dL (70-99) 71 mg/dL (70-99) White Blood Count 11.9 x10^3/uL (4.0-11.0) Red Blood Count 2.17 x10^6/uL (3.50-5.40) Hemoglobin 6.1 g/dL (12.0-15.5) Hematocrit 18.4 % (36.0-47.0) Mean Corpuscular Volume 85 fL (79-100) Mean Corpuscular Hemoglobin 28 pg (25-35) Mean Corpuscular Hemoglobin Concent 33 g/dL (31-37) Red Cell Distribution Width 18.8 % (11.5-14.5) Platelet Count 140 x10^3/uL (140-400) Neutrophils (%) (Auto) 89 % (31-73) Lymphocytes (%) (Auto) 6 % (24-48) Monocytes (%) (Auto) 3 % (0-9) Eosinophils (%) (Auto) 2 % (0-3) Basophils (%) (Auto) 0 % (0-3) Neutrophils # (Auto) 10.6 x10^3/uL (1.8-7.7) Lymphocytes # (Auto) 0.7 x10^3/uL (1.0-4.8) Monocytes # (Auto) 0.3 x10^3/uL (0.0-1.1) Eosinophils # (Auto) 0.3 x10^3/uL (0.0-0.7) Basophils # (Auto) 0.0 x10^3/uL (0.0-0.2) Sodium Level 139 mmol/L (136-145) Potassium Level 4.2 mmol/L (3.5-5.1) Chloride Level 106 mmol/L (98-107) Carbon Dioxide Level 29 mmol/L (21-32) Anion Gap 4 (6-14) Blood Urea Nitrogen 30 mg/dL (7-20) Creatinine 0.7 mg/dL (0.6-1.0) Estimated GFR (Cockcroft-Gault) 83.2 Glucose Level 72 mg/dL (70-99) Calcium Level 7.0 mg/dL (8.5-10.1) Microbiology 05/26/20 Gram Stain Evaluation - Final, Complete 05/26/20 Respiratory Culture - Final, Complete 05/24/20 Blood Culture - Final, Complete NO GROWTH AFTER 5 DAYS 05/18/20 Urine Culture - Final, Complete Medications Current Medications Sodium Chloride 1,000 ml @ 1,000 mls/hr 1X ONCE IV Last administered on 05/18/20at 09:29; Start 05/18/20 at 09:15; Stop 05/18/20 at 10:14; Status DC Ceftriaxone Sodium (Rocephin) 1 gm 1X ONCE IVP Last administered on 05/18/20at 09:28; Start 05/18/20 at 09:15; Stop 05/18/20 at 09:16; Status DC Ondansetron HCl (Zofran) 4 mg PRN Q8HRS PRN IV NAUSEA/VOMITING; Start 05/18/20 at 10:15; Stop 05/18/20 at 16:24; Status DC Acetaminophen (Tylenol) 650 mg PRN Q4HRS PRN PO FEVER > 100.3'F; Start 05/18/20 at 10:15; Stop 05/18/20 at 16:24; Status DC Ceftriaxone Sodium (Rocephin) 1 gm Q24H IVP Last administered on 05/24/20at 09:09; Start 05/19/20 at 09:00; Stop 05/24/20 at 18:10; Status DC Sodium Chloride (Normal Saline Flush) 3 ml QSHIFT PRN IV AFTER MEDS AND BLOOD DRAWS; Start 05/18/20 at 16:30 Sodium Chloride 1,000 ml @ 85 mls/hr [id number] IV Last administered on 05/24/20at 18:31; Start 05/18/20 at 16:20; Stop 05/25/20 at 09:44; Status DC Ondansetron HCl (Zofran) 4 mg PRN Q4HRS PRN IV NAUSEA/VOMITING; Start 05/18/20 at 16:30 Acetaminophen (Tylenol) 650 mg PRN Q4HRS PRN PO TEMP OVER 100.4F OR MILD PAIN Last administered on 06/10/20at 12:33; Start 05/18/20 at 16:30 Acetaminophen (Tylenol Supp) 650 mg PRN Q4HRS PRN MN TEMP OVER 100.4F OR MILD PAIN; Start 05/18/20 at 16:30 Sodium Monofluorophosphate (Fleet Adult) 133 ml PRN DAILY PRN MN CONSTIPATION Last administered on 06/12/20at 11:09; Start 05/18/20 at 16:30 Docusate Sodium (Colace) 100 mg PRN BID PRN PO HARD STOOLS Last administered on 06/10/20at 22:32; Start 05/18/20 at 16:30 Albuterol Sulfate (Ventolin Neb Soln) 2.5 mg PRN Q4HRS PRN NEB SHORTNESS OF BREATH Last administered on 05/21/20 18:14; Start 05/18/20 at 16:30; Stop 05/31/20 at 16:19; Status DC Guaifenesin (Robitussin) 200 mg PRN Q4HRS PRN PO COUGH Last administered on 05/23/20at 20:00; Start 05/18/20 at 16:30 Enoxaparin Sodium (Lovenox 40mg Syringe) 40 mg Q24H SQ Last administered on 05/31/20at 17:03; Start 05/18/20 at 17:00; Stop 06/01/20 at 10:27; Status DC Aspirin (Ecotrin) 81 mg DAILY PO Last administered on 06/11/20 08:29; Start 05/19/20 at 09:00; Stop 06/11/20 at 13:19; Status DC Metoprolol Tartrate (Lopressor) 50 mg BID PO Last administered on 05/21/20at 09:16; Start 05/19/20 at 09:00; Stop 05/21/20 at 15:45; Status DC Diclofenac Sodium (Voltaren) 75 mg BID PO Last administered on 06/03/20at 20:29; Start 05/19/20 at 10:00; Stop 06/04/20 at 08:03; Status DC Hydralazine HCl (Apresoline) 100 mg BID PO Last administered on 05/21/20at 09:15; Start 05/19/20 at 09:00; Stop 05/21/20 at 15:45; Status DC Lisinopril (Prinivil) 20 mg DAILY PO Last administered on 05/21/20at 09:16; Start 05/19/20 at 10:00; Stop 05/21/20 at 15:45; Status DC Pantoprazole Sodium (Protonix) 40 mg DAILYAC PO Last administered on 06/11/20 08:29; Start 05/19/20 at 10:00; Stop 06/11/20 at 11:58; Status DC Atorvastatin Calcium (Lipitor) 40 mg QHS PO Last administered on 06/12/20at 20:24; Start 05/19/20 at 21:00 Hydrochlorothiazide (Hydrodiuril) 25 mg DAILY PO Last administered on 05/23/20at 08:59; Start 05/19/20 at 10:00; Stop 05/23/20 at 10:22; Status DC Lactobacillus Rhamnosus (Culturelle) 1 cap BID PO Last administered on 06/13/20at 08:13; Start 05/19/20 at 21:00 Insulin Human Lispro (HumaLOG) 0-7 UNITS TIDWMEALS SQ Last administered on 06/10/20at 12:35; Start 05/19/20 at 17:00; Stop 06/10/20 at 17:33; Status DC Dextrose (Dextrose 50%-Water Syringe) 12.5 gm PRN Q15MIN PRN IV SEE COMMENTS Last administered on 06/04/20at 06:52; Start 05/19/20 at 14:15 Methimazole (Tapazole) 5 mg BID PO Last administered on 06/13/20at 08:13; Start 05/20/20 at 10:00 Insulin Glargine (Lantus Syringe) 5 unit DAILY SQ Last administered on 05/22/20at 09:15; Start 05/21/20 at 09:00; Stop 05/22/20 at 21:05; Status DC Doxycycline Hyclate (Vibra-Tab) 100 mg BID PO Last administered on 05/28/20at 08:53; Start 05/21/20 at 15:00; Stop 05/28/20 at 15:02; Status DC Furosemide (Lasix) 20 mg 1X ONCE IVP Last administered on 05/21/20at 17:05; Start 05/21/20 at 17:00; Stop 05/21/20 at 17:01; Status DC Sterile Water (WATER for RESP) 1,000 ml CONT PRN INH VIA VAPOTHERM DEVICE Last administered on 05/23/20at 16:26; Start 05/21/20 at 17:15; Stop 05/30/20 at 12:58; Status DC Albuterol Sulfate (Ventolin Neb Soln) 2.5 mg Q4HRS NEB Last administered on 05/30/20at 15:45; Start 05/21/20 at 20:00; Stop 05/31/20 at 16:19; Status DC Vancomycin HCl (Vanco Per Pharmacy) 1 each PRN DAILY PRN MC SEE COMMENTS Last administered on 05/25/20at 23:52; Start 05/22/20 at 09:00; Stop 05/27/20 at 16:29; Status DC Vancomycin HCl 2 gm/Sodium Chloride 500 ml @ 250 mls/hr 1X ONCE IV Last administered on 05/22/20at 09:05; Start 05/22/20 at 09:00; Stop 05/22/20 at 10:59; Status DC Vancomycin HCl 1.25 gm/Sodium Chloride 250 ml @ 167 mls/hr Q24H IV Last administered on 05/23/20at 09:00; Start 05/23/20 at 09:00; Stop 05/24/20 at 10:05; Status DC Vancomycin HCl (Vancomycin Trough Level) 1 each 1X ONCE MC Last administered on 05/24/20at 08:30; Start 05/24/20 at 08:30; Stop 05/24/20 at 08:31; Status DC Methylprednisolone Sodium Succinate (SOLU-Medrol 125MG VIAL) 80 mg Q8HRS IV Last administered on 05/27/20at 06:04; Start 05/22/20 at 14:00; Stop 05/27/20 at 12:02; Status DC Insulin Glargine (Lantus Syringe) 10 unit BID SQ Last administered on 05/23/20at 09:11; Start 05/22/20 at 21:00; Stop 05/23/20 at 20:17; Status DC Metoprolol Tartrate (Lopressor) 50 mg BID PO Last administered on 06/08/20at 08:23; Start 05/23/20 at 10:30; Stop 06/08/20 at 10:43; Status DC Hydrochlorothiazide (Microzide) 12.5 mg DAILY PO Last administered on 06/13/20at 08:13; Start 05/24/20 at 09:00 Potassium Chloride (Klor-Con) 40 meq Q2H PO Last administered on 05/23/20at 14:58; Start 05/23/20 at 10:30; Stop 05/23/20 at 14:31; Status DC Lisinopril (Prinivil) 40 mg DAILY PO Last administered on 06/13/20at 08:14; Start 05/23/20 at 10:30 Hydralazine HCl (Apresoline) 100 mg BID PO Last administered on 06/12/20at 08:04; Start 05/23/20 at 10:30 Insulin Glargine (Lantus Syringe) 10 unit BID SQ Last administered on 05/24/20at 09:14; Start 05/23/20 at 21:00; Stop 05/24/20 at 11:28; Status DC Vancomycin HCl 1.25 gm/Sodium Chloride 250 ml @ 167 mls/hr Q12H IV Last administered on 05/27/20at 08:21; Start 05/24/20 at 10:30; Stop 05/27/20 at 16:26; Status DC Vancomycin HCl (Vancomycin Trough Level) 1 each 1X ONCE MC Last administered on 05/25/20at 22:00; Start 05/25/20 at 22:00; Stop 05/25/20 at 22:01; Status DC Insulin Glargine (Lantus Syringe) 12 unit BID SQ ; Start 05/24/20 at 21:00; Stop 05/24/20 at 17:27; Status DC Insulin Glargine (Lantus Syringe) 15 unit BID SQ Last administered on 05/25/20at 08:19; Start 05/24/20 at 21:00; Stop 05/25/20 at 09:47; Status DC Insulin Human Lispro (HumaLOG) 7 units 1X ONCE SQ Last administered on 05/24/20at 18:01; Start 05/24/20 at 17:30; Stop 05/24/20 at 17:31; Status DC Piperacillin Sod/ Tazobactam Sod 3.375 gm/Sodium Chloride 50 ml @ 100 mls/hr Q6HRS IV Last administered on 05/28/20at 12:09; Start 05/24/20 at 18:30; Stop 05/28/20 at 15:01; Status DC Insulin Human Lispro (HumaLOG) 11 units 1X SQ ; Start 05/24/20 at 21:30; Status Cancel Insulin Human Lispro (HumaLOG) 11 units 1X ONCE SQ Last administered on 05/24/20at 22:25; Start 05/24/20 at 22:00; Stop 05/24/20 at 22:01; Status DC Furosemide (Lasix) 20 mg 1X ONCE IVP Last administered on 05/25/20at 11:12; Start 05/25/20 at 10:00; Stop 05/25/20 at 10:01; Status DC Insulin Glargine (Lantus Syringe) 18 unit BID SQ Last administered on 05/27/20 08:33; Start 05/25/20 at 21:00; Stop 05/27/20 at 12:00; Status DC Midazolam HCl (Versed) 2 mg 1X ONCE IV ; Start 05/25/20 at 10:30; Stop 05/25/20 at 10:31; Status Cancel Fentanyl Citrate (Fentanyl 2ml Vial) 50 mcg 1X ONCE IM ; Start 05/25/20 at 10:30; Stop 05/25/20 at 10:31; Status Cancel Hydralazine HCl (Apresoline Inj) 10 mg PRN Q4HRS PRN IVP ELEVATED BP, SEE COMMENTS Last administered on 06/10/20at 01:08; Start 05/25/20 at 16:15 Potassium Chloride (Klor-Con) 40 meq 1X ONCE PO Last administered on 05/26/20at 18:43; Start 05/26/20 at 18:30; Stop 05/26/20 at 18:31; Status DC Insulin Glargine (Lantus Syringe) 22 unit BID SQ Last administered on 05/29/20at 08:24; Start 05/27/20 at 21:00; Stop 05/29/20 at 12:14; Status DC Methylprednisolone Sodium Succinate (SOLU-Medrol 125MG VIAL) 40 mg Q12HR IV Last administered on 05/28/20at 08:52; Start 05/27/20 at 19:00; Stop 05/28/20 at 13:37; Status DC Nystatin (Nystatin Oral Susp) 5 ml [id number] Last administered on 06/13/20at 08:13; Start 05/27/20 at 17:00 Insulin Human Lispro (HumaLOG) 20 units 1X ONCE SQ Last administered on 05/27/20at 17:32; Start 05/27/20 at 17:30; Stop 05/27/20 at 17:31; Status DC Methylprednisolone Sodium Succinate (SOLU-Medrol 40MG VIAL) 40 mg Q12HR IV Last administered on 05/30/20at 08:34; Start 05/28/20 at 21:00; Stop 05/30/20 at 14:10; Status DC Amoxicillin/ Clavulanate Potassium (Augmentin 875/ 125mg) 1 tab BID PO Last administered on 05/31/20at 19:53; Start 05/28/20 at 21:00; Stop 05/31/20 at 21:01; Status DC Amlodipine Besylate (Norvasc) 2.5 mg DAILY PO Last administered on 06/09/20at 08:40; Start 05/29/20 at 11:45; Stop 06/10/20 at 02:44; Status DC Furosemide (Lasix) 20 mg 1X ONCE PO Last administered on 05/29/20at 12:40; Start 05/29/20 at 12:30; Stop 05/29/20 at 12:31; Status DC Potassium Chloride (Klor-Con) 20 meq 1X ONCE PO Last administered on 05/29/20at 12:40; Start 05/29/20 at 12:30; Stop 05/29/20 at 12:31; Status DC Insulin Glargine (Lantus Syringe) 25 unit BID SQ Last administered on 06/04/20at 07:58; Start 05/29/20 at 21:00; Stop 06/04/20 at 09:20; Status DC Furosemide (Lasix) 40 mg 1X ONCE IVP Last administered on 05/30/20at 11:47; Start 05/30/20 at 11:15; Stop 05/30/20 at 11:16; Status DC Iohexol (Omnipaque 350 Mg/ml) 100 ml 1X ONCE IV Last administered on 05/30/20at 12:00; Start 05/30/20 at 12:00; Stop 05/30/20 at 12:01; Status DC Info (CONTRAST GIVEN -- Rx MONITORING) 1 each PRN DAILY PRN MC SEE COMMENTS; Start 05/30/20 at 12:15; Stop 06/01/20 at 12:14; Status DC Sterile Water (WATER for RESP) 1,000 ml CONT PRN INH VIA VAPOTHERM DEVICE Last administered on 06/12/20at 16:19; Start 05/30/20 at 13:00 Methylprednisolone Sodium Succinate (SOLU-Medrol 125MG VIAL) 125 mg Q12HR IV Last administered on 06/09/20at 08:41; Start 05/30/20 at 14:15; Stop 06/09/20 at 13:11; Status DC Enoxaparin Sodium (Lovenox 40mg Syringe) 40 mg BID SQ Last administered on 06/10/20at 08:15; Start 06/01/20 at 21:00; Stop 06/10/20 at 13:46; Status DC Non-Formulary Medication 1 ea/ Sodium Chloride 210 ml @ 210 mls/hr 1X ONCE IV Last administered on 06/01/20at 17:11; Start 06/01/20 at 16:30; Stop 06/01/20 at 17:29; Status DC Non-Formulary Medication 1 ea/ Sodium Chloride 230 ml @ 460 mls/hr DAILY IV Last administered on 06/05/20at 17:38; Start 06/02/20 at 09:00; Stop 06/05/20 at 09:29; Status DC Potassium Chloride (Klor-Con) 40 meq 1X ONCE PO Last administered on 06/03/20at 09:51; Start 06/03/20 at 08:00; Stop 06/03/20 at 08:01; Status DC Diclofenac Sodium (Voltaren) 75 mg BID PO ; Start 06/04/20 at 08:03; Stop 06/04/20 at 08:04; Status DC Diclofenac Sodium (Voltaren) 75 mg BID PO Last administered on 06/10/20at 21:15; Start 06/04/20 at 09:00; Stop 06/11/20 at 13:19; Status DC Insulin Glargine (Lantus Syringe) 30 unit QHS SQ Last administered on 06/04/20at 21:14; Start 06/04/20 at 21:00; Stop 06/05/20 at 10:25; Status DC Insulin Glargine (Lantus Syringe) 15 unit QHS SQ Last administered on 06/09/20at 21:29; Start 06/05/20 at 21:00; Stop 06/10/20 at 13:46; Status DC Furosemide (Lasix) 40 mg 1X ONCE IVP Last administered on 06/08/20at 11:14; Start 06/08/20 at 11:00; Stop 06/08/20 at 11:02; Status DC Methylprednisolone Sodium Succinate (SOLU-Medrol 125MG VIAL) 60 mg BID IV Last administered on 06/11/20at 08:29; Start 06/09/20 at 21:00; Stop 06/11/20 at 15:22; Status DC Amlodipine Besylate (Norvasc) 10 mg 1X ONCE PO Last administered on 06/10/20at 03:16; Start 06/10/20 at 03:00; Stop 06/10/20 at 03:01; Status DC Amlodipine Besylate (Norvasc) 10 mg DAILY PO Last administered on 06/13/20at 08:14; Start 06/10/20 at 09:00 Hydralazine HCl (Apresoline Inj) 10 mg 1X ONCE IVP Last administered on 06/10/20at 03:16; Start 06/10/20 at 03:00; Stop 06/10/20 at 03:01; Status DC Enoxaparin Sodium (Lovenox 40mg Syringe) 40 mg DAILY SQ Last administered on 06/11/20at 08:28; Start 06/11/20 at 09:00; Stop 06/11/20 at 09:09; Status DC Insulin Glargine (Lantus Syringe) 20 unit QHS SQ Last administered on 06/12/20at 21:02; Start 06/10/20 at 13:45 Insulin Human Lispro (HumaLOG) 0-9 UNITS TIDWMEALS SQ Last administered on 06/11/20at 09:04; Start 06/10/20 at 17:40; Stop 06/11/20 at 08:00; Status DC Pantoprazole Sodium (PROTONIX VIAL for IV PUSH) 40 mg DAILYAC IVP Last administered on 06/13/20at 08:12; Start 06/12/20 at 07:30 Insulin Human Lispro (HumaLOG) 0-9 UNITS TIDWMEALS SQ Last administered on 06/12/20at 17:28; Start 06/11/20 at 13:00 Iohexol (Omnipaque 300 Mg/ml) 75 ml 1X ONCE IV Last administered on 06/11/20at 14:50; Start 06/11/20 at 13:15; Stop 06/11/20 at 13:16; Status DC Info (CONTRAST GIVEN -- Rx MONITORING) 1 each PRN DAILY PRN MC SEE COMMENTS; Start 06/11/20 at 13:15; Stop 06/13/20 at 13:14; Status DC Morphine Sulfate (Morphine Sulfate) 2 mg PRN Q2HR PRN IV PAIN Last administered on 06/12/20at 21:07; Start 06/11/20 at 15:15 Methylprednisolone Sodium Succinate (SOLU-Medrol 125MG VIAL) 60 mg DAILY IV Last administered on 06/13/20at 08:12; Start 06/12/20 at 09:00; Stop 06/13/20 at 10:24; Status DC Piperacillin Sod/ Tazobactam Sod 2.25 gm/Sodium Chloride 50 ml @ 100 mls/hr Q8HRS IV Last administered on 06/13/20at 06:30; Start 06/11/20 at 17:00 Lactulose (Lactulose) 30 gm 1X ONCE PO Last administered on 06/11/20at 20:30; Start 06/11/20 at 20:00; Stop 06/11/20 at 20:01; Status DC Polyethylene Glycol (miraLAX PACKET) 17 gm [id number] PO Last administered on 06/12/20at 17:14; Start 06/11/20 at 20:00 Sodium Chloride 500 ml @ 500 mls/hr 1X ONCE IV Last administered on 06/12/20at 13:10; Start 06/12/20 at 13:00; Stop 06/12/20 at 13:59; Status DC Methylprednisolone Sodium Succinate (SOLU-Medrol 40MG VIAL) 40 mg DAILY IV ; Start 06/14/20 at 09:00 Active Scripts Active Reported Actos (Pioglitazone Hcl) 45 Mg Tablet 1 Tab PO DAILY 30 Days Diclofenac Sodium 75 Mg Tablet.dr 1 Tab PO BID Klor-Con 10 (Potassium Chloride) 10 Meq Tablet.er 1 Tab PO DAILY 30 Days Metformin Hcl 1,000 Mg Tablet 1,000 Mg PO BIDWMEALS Omeprazole 20 Mg Capsule.dr 1 Cap PO DAILY Lisinopril-Hctz 20-25 Mg Tab (Lisinopril/Hydrochlorothiazide) 1 Each Tablet 1 Tab PO DAILY Aspirin Ec (Aspirin) 81 Mg Tablet.dr 1 Tab PO DAILY Hydralazine Hcl 100 Mg Tablet 1 Tab PO BID Metoprolol Tartrate 50 Mg Tablet 1 Tab PO BID Rosuvastatin Calcium 10 Mg Tablet 10 Mg PO DAILY Vitals/I & O Vital Sign - Last 24 Hours 06/12/20 06/12/20 06/12/20 06/12/20 14:00 15:00 15:33 16:00 Temp 98.6 98.6 Pulse 81 89 90 Resp 26 26 28 B/P (MAP) 95/54 (68) 115/61 (79) 91/55 (67) Pulse Ox 95 95 96 O2 Delivery BiPAP/CPAP BiPAP/CPAP Bi-pap Vapotherm O2 Flow Rate 40.0 06/12/20 06/12/20 06/12/20 06/12/20 16:09 17:00 18:00 19:00 Pulse 82 81 88 Resp 26 26 B/P (MAP) 104/74 (84) 96/54 (68) 98/51 (67) Pulse Ox 93 97 100 98 O2 Delivery Vapotherm Vapotherm Vapotherm Vapotherm O2 Flow Rate 40.0 40.0 40.0 06/12/20 06/12/20 06/12/20 06/12/20 20:00 20:00 20:25 21:00 Temp 97.3 97.3 Pulse 82 82 92 Resp 28 26 B/P (MAP) 111/60 (77) 111/60 98/48 (65) Pulse Ox 99 94 96 O2 Delivery Vapotherm VAPOTHERM Vapotherm O2 Flow Rate 40.0 40.0 40.0 06/12/20 06/12/20 06/12/20 06/12/20 21:07 21:40 22:00 23:15 Pulse 62 78 Resp 28 36 25 B/P (MAP) 120/60 (80) 121/59 (79) Pulse Ox 100 96 96 96 O2 Delivery High Flow Nasal Cannula Vapotherm Vapotherm O2 Flow Rate 40.0 40.0 40.0 40.0 06/13/20 06/13/20 06/13/20 06/13/20 00:07 00:25 01:00 02:05 Pulse 70 76 70 Resp 20 19 B/P (MAP) 113/62 (79) 112/58 (76) 113/52 (72) Pulse Ox 97 94 96 97 O2 Delivery Vapotherm VAPOTHERM Vapotherm Vapotherm O2 Flow Rate 40.0 40.0 40.0 40.0 06/13/20 06/13/20 06/13/20 06/13/20 03:00 04:00 04:21 05:00 Temp 97.5 97.5 Pulse 70 70 66 Resp 18 24 23 B/P (MAP) 110/55 (73) 106/57 (73) 99/44 (62) Pulse Ox 99 98 96 100 O2 Delivery Vapotherm Vapotherm VAPOTHERM Vapotherm O2 Flow Rate 40.0 40.0 40.0 40.0 06/13/20 06/13/20 06/13/20 06/13/20 06:00 07:00 08:00 08:14 Temp 98.0 98.0 Pulse 73 Resp 21 23 20 B/P (MAP) 110/54 (72) 115/69 (84) 134/72 (92) 134/73 Pulse Ox 94 92 92 O2 Delivery Vapotherm Vapotherm Vapotherm O2 Flow Rate 40.0 40.0 40.0 06/13/20 06/13/20 06/13/20 06/13/20 08:14 08:38 09:00 10:00 Pulse 79 75 Resp 22 24 B/P (MAP) 134/73 129/70 (89) 112/58 (76) Pulse Ox 91 94 94 O2 Delivery Vapotherm Vapotherm Vapotherm O2 Flow Rate 40.0 40.0 40.0 06/13/20 06/13/20 06/13/20 06/13/20 11:00 11:39 11:54 12:00 Temp 98.0 98.2 98.0 98.0 98.2 98.0 Pulse 72 73 74 82 Resp 20 21 22 22 B/P (MAP) 115/63 (80) 115/52 118/63 118/65 (82) Pulse Ox 92 92 O2 Delivery Vapotherm Vapotherm O2 Flow Rate 40.0 40.0 06/13/20 06/13/20 12:10 13:00 Pulse 82 Resp 23 B/P (MAP) 121/60 (80) Pulse Ox 91 93 O2 Delivery Vapotherm Vapotherm O2 Flow Rate 40.0 40.0 Intake and Output 06/12/20 06/12/20 06/13/20 15:00 23:00 07:00 Intake Total 550 ml 240 ml Output Total 460 ml 400 ml 275 ml Balance 90 ml -400 ml -35 ml Problem List Problems Medical Problems: (1) Altered mental status Status: Acute (2) Hypoglycemia Status: Acute (3) Hypothermia Status: Acute Assessment Rectal bleed- with constipation, stercoral ulcer likely, anemia noted, transfusions recommended. advance diet as tolerated, serial CBCS Justicifation of Admission Dx: Justifications for Admission: Justification of Admission Dx: Yes Altered Mental Status: Altered Mental Status KENNEDI KEMP MD Jun 13, 2020 13:53
--- NOTE | 2020-06-13 14:15 | RAD ---
CHEST AP ONLY 06/13/2020 10:22 AM INDICATION: Abnormal chest x-ray COMPARISON: 06/10/2020 TECHNIQUE: Portable frontal view of the chest is provided. FINDINGS: The cardiomediastinal silhouette is similar in appearance. Moderate patchy interstitial airspace disease identified at the lungs bilaterally. Distribution appears similar to prior examination. There are no significant pleural effusions. There is no pneumothorax. No suspicious osseous abnormality. IMPRESSION: Moderate predominantly patchy interstitial airspace disease identified throughout the lungs bilaterally. Findings appear relatively similar to the prior examination. Consideration may be given for interstitial edema versus interstitial pneumonitis. Electronically signed by: Nimco Bell MD (06/13/2020 2:12 PM) [facility]
[2020-06-13] MEDS: STERILE WATER for RESP 1,000 ML BAG. INH PRN (16:10)
[2020-06-13 17:04] LABS: HEMATOCRIT 23.6 % (36.0-47.0); HEMOGLOBIN 7.8 g/dL (12.0-15.5)
[2020-06-13] MEDS: ATORVASTATIN CALCIUM 40 MG TABLET. PO SCH (20:48)
[2020-06-13] MEDS: INSULIN GLARGINE SYRINGE. SQ SCH (20:49)
[2020-06-13] MEDS ORDERED: INSULIN LISPRO 300 UNITS/3 ML VIAL. SQ ONE (21:00)
[2020-06-13] MEDS: MORPHINE SULFATE 2 MG/ML VIAL. IV PRN (21:19)
[2020-06-14] VITALS (24 sets, daily range): BP systolic 97–140; BP diastolic 49–80
[2020-06-14] MEDS: STERILE WATER for RESP 1,000 ML BAG. INH PRN ×2 (04:43→16:01)
[2020-06-14] MEDS: PIPERACILLIN/TAZOBACTAM 2.25 GM in IV NORMAL SALINE 50ML 50 ML IV SCH ×3 (05:43→21:56)
[2020-06-14] MEDS: POLYETHYLENE GLYCOL 3350 17 GM PACKET. PO SCH ×2 (05:43→18:00)
[2020-06-14] MEDS: amLODIPine BESYLATE 10 MG TABLET PO SCH (08:39)
[2020-06-14] MEDS: methIMAzole 10 MG TABLET PO SCH ×2 (08:39→20:29)
[2020-06-14] MEDS: hydroCHLOROthiazide 12.5 MG CAPSULE PO SCH (08:39)
[2020-06-14] MEDS: PANTOPRAZOLE IV PUSH 40 MG VIAL. IVP SCH (08:39)
[2020-06-14] MEDS: LACTOBACILLUS RHAMNOSUS GG 1 CAPSULE. PO SCH ×2 (08:39→20:28)
[2020-06-14] MEDS: NYSTATIN 100,000 UNITS/ML 5 ML ORAL.SUSP. SWSW SCH ×4 (08:39→20:31)
[2020-06-14] MEDS: LISINOPRIL 20 MG TABLET PO SCH (08:40)
--- NOTE | 2020-06-14 08:50 | PDOC ---
Infectious Disease Note Subjective: Subjective Says feeling ok Eating breakfast on vapotherm 40 L ; FiO2 100% No fevers last 48 hrs + BM Vital Signs: Vital Signs Vital Signs Date Time Temp Pulse Resp B/P (MAP) Pulse Ox O2 Delivery O2 Flow Rate FiO2 06/14/20 08:40 69 119/59 06/14/20 07:52 96 Vapotherm 40.0 06/14/20 07:00 21 06/14/20 04:00 98.0 98.0 Physical Exam: PHYSICAL EXAM GENERAL: Propped up in bed, alert, appears comfortable HEENT: Oral cavity clear NECK: Supple. LUNGS: Diminished aeration, no accessory muscle use HEART: S1, S2. regular ABDOMEN: Obese, soft : Galan in place EXTREMITIES: Trace edema lower extremities bilaterally. No cyanosis DERMATOLOGIC: Warm, dry. No generalized rash. PIV Medications: Inpatient Meds: Current Medications Medications (Trade) Dose Ordered Sig/Nini Start Time Stop Time Status Last Admin Dose Admin Acetaminophen (Tylenol Supp) 650 mg PRN Q4HRS PRN 05/18/20 16:30 Acetaminophen (Tylenol) 650 mg PRN Q4HRS PRN 05/18/20 16:30 06/10/20 12:33 650 MG Albuterol Sulfate (Ventolin Neb Soln) 2.5 mg Q4HRS 05/21/20 20:00 05/31/20 16:19 DC 05/30/20 15:45 2.5 MG Amlodipine Besylate (Norvasc) 10 mg DAILY 06/10/20 09:00 06/14/20 08:39 10 MG Amoxicillin/ Clavulanate Potassium (Augmentin 875/ 125mg) 1 tab BID 05/28/20 21:00 05/31/20 21:01 DC 05/31/20 19:53 1 TAB Aspirin (Ecotrin) 81 mg DAILY 05/19/20 09:00 06/11/20 13:19 DC 06/11/20 08:29 81 MG Atorvastatin Calcium (Lipitor) 40 mg QHS 05/19/20 21:00 06/13/20 20:48 40 MG Ceftriaxone Sodium (Rocephin) 1 gm Q24H 05/19/20 09:00 05/24/20 18:10 DC 05/24/20 09:09 1 GM Dextrose (Dextrose 50%-Water Syringe) 12.5 gm PRN Q15MIN PRN 05/19/20 14:15 06/04/20 06:52 12.5 GM Diclofenac Sodium (Voltaren) 75 mg BID 06/04/20 09:00 06/11/20 13:19 DC 06/10/20 21:15 75 MG Docusate Sodium (Colace) 100 mg PRN BID PRN 05/18/20 16:30 06/10/20 22:32 100 MG Doxycycline Hyclate (Vibra-Tab) 100 mg BID 05/21/20 15:00 05/28/20 15:02 DC 05/28/20 08:53 100 MG Enoxaparin Sodium (Lovenox 40mg Syringe) 40 mg DAILY 06/11/20 09:00 06/11/20 09:09 DC 06/11/20 08:28 40 MG Fentanyl Citrate (Fentanyl 2ml Vial) 50 mcg 1X ONCE 05/25/20 10:30 05/25/20 10:31 Cancel Furosemide (Lasix) 40 mg 1X ONCE 06/08/20 11:00 06/08/20 11:02 DC 06/08/20 11:14 40 MG Guaifenesin (Robitussin) 200 mg PRN Q4HRS PRN 05/18/20 16:30 05/23/20 20:00 200 MG Hydralazine HCl (Apresoline Inj) 10 mg 1X ONCE 06/10/20 03:00 06/10/20 03:01 DC 06/10/20 03:16 10 MG Hydralazine HCl (Apresoline) 100 mg BID 05/23/20 10:30 06/13/20 20:48 100 MG Hydrochlorothiazide (Hydrodiuril) 25 mg DAILY 05/19/20 10:00 05/23/20 10:22 DC 05/23/20 08:59 25 MG Hydrochlorothiazide (Microzide) 12.5 mg DAILY 05/24/20 09:00 06/14/20 08:39 12.5 MG Info (CONTRAST GIVEN -- Rx MONITORING) 1 each PRN DAILY PRN 06/11/20 13:15 06/13/20 13:14 DC Insulin Glargine (Lantus Syringe) 20 unit QHS 06/10/20 13:45 06/13/20 20:49 20 UNIT Insulin Human Lispro (HumaLOG) 10 units 1X ONCE 06/13/20 21:00 06/13/20 21:01 DC 06/13/20 20:50 10 UNITS Iohexol (Omnipaque 300 Mg/ml) 75 ml 1X ONCE 06/11/20 13:15 06/11/20 13:16 DC 06/11/20 14:50 75 ML Iohexol (Omnipaque 350 Mg/ml) 100 ml 1X ONCE 05/30/20 12:00 05/30/20 12:01 DC 05/30/20 12:00 100 ML Lactobacillus Rhamnosus (Culturelle) 1 cap BID 05/19/20 21:00 06/14/20 08:39 1 CAP Lactulose (Lactulose) 30 gm 1X ONCE 06/11/20 20:00 06/11/20 20:01 DC 06/11/20 20:30 30 GM Lisinopril (Prinivil) 40 mg DAILY 05/23/20 10:30 06/14/20 08:40 40 MG Methimazole (Tapazole) 5 mg BID 05/20/20 10:00 06/14/20 08:39 5 MG Methylprednisolone Sodium Succinate (SOLU-Medrol 40MG VIAL) 40 mg DAILY 06/14/20 09:00 06/14/20 08:42 40 MG Methylprednisolone Sodium Succinate (SOLU-Medrol 125MG VIAL) 60 mg DAILY 06/12/20 09:00 06/13/20 10:24 DC 06/13/20 08:12 60 MG Metoprolol Tartrate (Lopressor) 50 mg BID 05/23/20 10:30 06/08/20 10:43 DC 06/08/20 08:23 50 MG Midazolam HCl (Versed) 2 mg 1X ONCE 05/25/20 10:30 05/25/20 10:31 Cancel Morphine Sulfate (Morphine Sulfate) 2 mg PRN Q2HR PRN 06/11/20 15:15 06/13/20 21:19 2 MG Non-Formulary Medication 1 ea/ Sodium Chloride 230 ml @ 460 mls/hr DAILY 06/02/20 09:00 06/05/20 09:29 DC 06/05/20 17:38 460 MLS/HR Nystatin (Nystatin Oral Susp) 5 ml [id number] 05/27/20 17:00 06/14/20 08:39 5 ML Ondansetron HCl (Zofran) 4 mg PRN Q4HRS PRN 05/18/20 16:30 Pantoprazole Sodium (PROTONIX VIAL for IV PUSH) 40 mg DAILYAC 06/12/20 07:30 06/14/20 08:39 40 MG Pantoprazole Sodium (Protonix) 40 mg DAILYAC 05/19/20 10:00 06/11/20 11:58 DC 06/11/20 08:29 40 MG Piperacillin Sod/ Tazobactam Sod 2.25 gm/Sodium Chloride 50 ml @ 100 mls/hr Q8HRS 06/11/20 17:00 06/14/20 05:43 100 MLS/HR Piperacillin Sod/ Tazobactam Sod 3.375 gm/Sodium Chloride 50 ml @ 100 mls/hr Q6HRS 05/24/20 18:30 05/28/20 15:01 DC 05/28/20 12:09 100 MLS/HR Polyethylene Glycol (miraLAX PACKET) 17 gm [id number] 06/11/20 20:00 06/13/20 17:25 17 GM Potassium Chloride (Klor-Con) 40 meq 1X ONCE 06/03/20 08:00 06/03/20 08:01 DC 06/03/20 09:51 40 MEQ Sodium Monofluorophosphate (Fleet Adult) 133 ml PRN DAILY PRN 05/18/20 16:30 06/12/20 11:09 133 ML Sodium Chloride 500 ml @ 500 mls/hr 1X ONCE 06/12/20 13:00 06/12/20 13:59 DC 06/12/20 13:10 500 MLS/HR Sodium Chloride (Normal Saline Flush) 3 ml QSHIFT PRN 05/18/20 16:30 Sterile Water (WATER for RESP) 1,000 ml CONT PRN 05/30/20 13:00 06/14/20 04:43 1,000 ML Vancomycin HCl (Vanco Per Pharmacy) 1 each PRN DAILY PRN 05/22/20 09:00 05/27/20 16:29 DC 05/25/20 23:52 1 EACH Vancomycin HCl (Vancomycin Trough Level) 1 each 1X ONCE 05/25/20 22:00 05/25/20 22:01 DC 05/25/20 22:00 1 EACH Vancomycin HCl 1.25 gm/Sodium Chloride 250 ml @ 167 mls/hr Q12H 05/24/20 10:30 05/27/20 16:26 DC 05/27/20 08:21 167 MLS/HR Vancomycin HCl 2 gm/Sodium Chloride 500 ml @ 250 mls/hr 1X ONCE 05/22/20 09:00 05/22/20 10:59 DC 05/22/20 09:05 250 MLS/HR Labs: Lab Laboratory Tests Test 06/13/20 17:00 06/13/20 17:29 06/13/20 20:32 06/13/20 22:19 Hemoglobin 7.8 g/dL (12.0-15.5) Hematocrit 23.6 % (36.0-47.0) Glucose (Fingerstick) 361 mg/dL (70-99) 581 mg/dL (70-99) 451 mg/dL (70-99) Test 06/13/20 23:44 06/14/20 03:29 Glucose (Fingerstick) 329 mg/dL (70-99) 155 mg/dL (70-99) Objective: Assessment: COVID-19 viral infection, 05/30. (negative on 05/18/2020 and ) s/p Remdesivir Acute hypoxic respiratory failure Pneumonia. sputum cx: Resp gerri. Off vanc/Zosyn/doxy. Off augmentin Fever - now resolved Leukocytosis, on steroids. CHF Hypoglycemic encephalopathy, resolved. Diabetes. Hypertension. Severe protein-calorie malnutrition. Gram-positive cocci bacteremia, 05/18/2020, 1 out of 2 bottles, ID MICROCOCCUS SPECIES, likely a contaminant. Thrush - better Constipation/impaction s/p enemas/laxatives Anemia Plan: Plan of Care Zosyn restarted 06/11 Steroids per pulmonary Maintain aspiration precautions Anemia per primary Supportive care Airborne isolation for + COVID Awaiting transfer to select D/w nursing MARYBETH REDMOND MD Jun 14, 2020 08:50
[2020-06-14] MEDS ORDERED: methylPREDNISolone SOD SUCC PF 40 MG/ML VIAL. IV SCH (09:00)
[2020-06-14] MEDS: INSULIN LISPRO 300 UNITS/3 ML VIAL. SQ SCH ×3 (09:47→17:41)
--- NOTE | 2020-06-14 09:57 | PDOC ---
MARIEL HUTTON LITIGATION MANAGER 06/14/20 0957: SURGICAL PROGRESS NOTE Subjective did not see pt--continues to be in coivd 19 isolation reviewed chart and discussed with nurse tolerating clears, no abdominal pain, no n/v had stool last night no surgical indications, will sign off, please call with questions Vital Signs Vital Signs Date Time Temp Pulse Resp B/P (MAP) Pulse Ox O2 Delivery O2 Flow Rate FiO2 06/14/20 09:00 88 20 110/55 (73) 99 Vapotherm 40.0 06/14/20 08:00 98.1 98.1 I&O Intake and Output 06/14/20 07:00 Intake Total 1100 ml Output Total 1910 ml Balance -810 ml Intake Oral 500 ml IV Total 200 ml Blood Product IV Normal Saline Flush 400 ml Output Urine Total 1910 ml Labs Laboratory Tests Test 06/12/20 10:25 06/12/20 13:40 06/12/20 17:22 06/12/20 20:43 White Blood Count 15.8 x10^3/uL (4.0-11.0) Red Blood Count 2.88 x10^6/uL (3.50-5.40) Hemoglobin 8.0 g/dL (12.0-15.5) Hematocrit 25.0 % (36.0-47.0) Mean Corpuscular Volume 87 fL (79-100) Mean Corpuscular Hemoglobin 28 pg (25-35) Mean Corpuscular Hemoglobin Concent 32 g/dL (31-37) Red Cell Distribution Width 20.1 % (11.5-14.5) Platelet Count 157 x10^3/uL (140-400) Neutrophils (%) (Auto) 94 % (31-73) Lymphocytes (%) (Auto) 2 % (24-48) Monocytes (%) (Auto) 3 % (0-9) Eosinophils (%) (Auto) 1 % (0-3) Basophils (%) (Auto) 0 % (0-3) Neutrophils # (Auto) 14.9 x10^3/uL (1.8-7.7) Lymphocytes # (Auto) 0.3 x10^3/uL (1.0-4.8) Monocytes # (Auto) 0.4 x10^3/uL (0.0-1.1) Eosinophils # (Auto) 0.1 x10^3/uL (0.0-0.7) Basophils # (Auto) 0.0 x10^3/uL (0.0-0.2) Sodium Level 145 mmol/L (136-145) Potassium Level 5.4 mmol/L (3.5-5.1) Chloride Level 107 mmol/L (98-107) Carbon Dioxide Level 31 mmol/L (21-32) Anion Gap 7 (6-14) Blood Urea Nitrogen 26 mg/dL (7-20) Creatinine 0.6 mg/dL (0.6-1.0) Estimated GFR (Cockcroft-Gault) 99.4 BUN/Creatinine Ratio 43 (6-20) Glucose Level 141 mg/dL (70-99) Lactic Acid Level 2.1 mmol/L (0.4-2.0) 1.4 mmol/L (0.4-2.0) Calcium Level 7.3 mg/dL (8.5-10.1) Total Bilirubin 0.8 mg/dL (0.2-1.0) Aspartate Amino Transf (AST/SGOT) 45 U/L (15-37) Alanine Aminotransferase (ALT/SGPT) 34 U/L (14-59) Alkaline Phosphatase 146 U/L (46-116) Total Protein 4.9 g/dL (6.4-8.2) Albumin 1.7 g/dL (3.4-5.0) Albumin/Globulin Ratio 0.5 (1.0-1.7) Prothrombin Time 14.2 SEC (11.7-14.0) Prothromb Time International Ratio 1.1 (0.8-1.1) Glucose (Fingerstick) 360 mg/dL (70-99) 191 mg/dL (70-99) Test 06/13/20 05:00 06/13/20 08:21 06/13/20 17:00 06/13/20 17:29 White Blood Count 11.9 x10^3/uL (4.0-11.0) Red Blood Count 2.17 x10^6/uL (3.50-5.40) Hemoglobin 6.1 g/dL (12.0-15.5) 7.8 g/dL (12.0-15.5) Hematocrit 18.4 % (36.0-47.0) 23.6 % (36.0-47.0) Mean Corpuscular Volume 85 fL (79-100) Mean Corpuscular Hemoglobin 28 pg (25-35) Mean Corpuscular Hemoglobin Concent 33 g/dL (31-37) Red Cell Distribution Width 18.8 % (11.5-14.5) Platelet Count 140 x10^3/uL (140-400) Neutrophils (%) (Auto) 89 % (31-73) Lymphocytes (%) (Auto) 6 % (24-48) Monocytes (%) (Auto) 3 % (0-9) Eosinophils (%) (Auto) 2 % (0-3) Basophils (%) (Auto) 0 % (0-3) Neutrophils # (Auto) 10.6 x10^3/uL (1.8-7.7) Lymphocytes # (Auto) 0.7 x10^3/uL (1.0-4.8) Monocytes # (Auto) 0.3 x10^3/uL (0.0-1.1) Eosinophils # (Auto) 0.3 x10^3/uL (0.0-0.7) Basophils # (Auto) 0.0 x10^3/uL (0.0-0.2) Sodium Level 139 mmol/L (136-145) Potassium Level 4.2 mmol/L (3.5-5.1) Chloride Level 106 mmol/L (98-107) Carbon Dioxide Level 29 mmol/L (21-32) Anion Gap 4 (6-14) Blood Urea Nitrogen 30 mg/dL (7-20) Creatinine 0.7 mg/dL (0.6-1.0) Estimated GFR (Cockcroft-Gault) 83.2 Glucose Level 72 mg/dL (70-99) Calcium Level 7.0 mg/dL (8.5-10.1) Glucose (Fingerstick) 71 mg/dL (70-99) 361 mg/dL (70-99) Test 06/13/20 20:32 06/13/20 22:19 06/13/20 23:44 06/14/20 03:29 Glucose (Fingerstick) 581 mg/dL (70-99) 451 mg/dL (70-99) 329 mg/dL (70-99) 155 mg/dL (70-99) Test 06/14/20 08:50 Glucose (Fingerstick) 175 mg/dL (70-99) Laboratory Tests Test 06/13/20 17:00 06/13/20 17:29 06/13/20 20:32 06/13/20 22:19 Hemoglobin 7.8 g/dL (12.0-15.5) Hematocrit 23.6 % (36.0-47.0) Glucose (Fingerstick) 361 mg/dL (70-99) 581 mg/dL (70-99) 451 mg/dL (70-99) Test 06/13/20 23:44 06/14/20 03:29 06/14/20 08:50 Glucose (Fingerstick) 329 mg/dL (70-99) 155 mg/dL (70-99) 175 mg/dL (70-99) Problem List Problems Medical Problems: (1) Altered mental status Status: Acute (2) Hypoglycemia Status: Acute (3) Hypothermia Status: Acute Assessment/Plan 15 mins to review chart, d/w staff, document Justicifation of Admission Dx: Justifications for Admission: Justification of Admission Dx: Yes Altered Mental Status: Altered Mental Status KENNEDI CARLSON MD 06/14/20 1101: SURGICAL PROGRESS NOTE Assessment/Plan Agree with above; no surgical issues; will sign off MARIEL HUTTON APRN Jun 14, 2020 09:57 KENNEDI CARLSON MD Jun 14, 2020 11:01
--- NOTE | 2020-06-14 10:43 | NUR ---
SS following up with discharge planning. SS reviewed pt chart and discussed with pt RN. Pt is currently on Vapotherm and IV Zosyn. Pt accepted at [facility], ; fax [phone], and has insurance authorization. SS phoned and faxed clinical updates to [facility]. SS currently awaiting on bed availability from [facility] at this time and will proceed accordingly with discharge planning.
[2020-06-14 10:51] LABS: CALCIUM 7.3 mg/dL (8.5-10.1); CREATININE 0.8 mg/dL (0.6-1.0); GFR 71.3; POTASSIUM 3.9 mmol/L (3.5-5.1)
[2020-06-14 10:56] LABS: BASO % 0 % (0-3); EOS # 0.3 x10^3/uL (0.0-0.7); EOS % 3 % (0-3); HEMATOCRIT 22.4 % (36.0-47.0); HEMOGLOBIN 7.4 g/dL (12.0-15.5); LYMPH # 0.6 x10^3/uL (1.0-4.8); LYMPH % 5 % (24-48); MEAN CORPUSCULAR HEMOGLOBIN 27 pg (25-35); MEAN CORPUSCULAR HGB CONC 33 g/dL (31-37); MEAN CORPUSCULAR VOLUME 83 fL (79-100); MONO # 0.3 x10^3/uL (0.0-1.1); MONO % 3 % (0-9); NEUT # 10.3 x10^3/uL (1.8-7.7); NEUT % 90 % (31-73); PLATELET COUNT 135 x10^3/uL (140-400); RED CELL DISTRIBUTION WIDTH 17.7 % (11.5-14.5); WHITE BLOOD COUNT 11.5 x10^3/uL (4.0-11.0)
--- NOTE | 2020-06-14 12:45 | PDOC ---
Objective: Objective: D/w nurse - tolerating clears, no bleeding, stooling, no c/o pain. Asking about advancing diet. Transfused yesterday. Vital Signs: Vital Signs Date Time Temp Pulse Resp B/P (MAP) Pulse Ox O2 Delivery O2 Flow Rate FiO2 06/14/20 12:00 Nasal Cannula 40.0 06/14/20 12:00 98.4 86 20 118/58 (78) 99 98.4 Labs: Laboratory Tests Test 06/13/20 17:29 06/13/20 20:32 06/13/20 22:19 06/13/20 23:44 Glucose (Fingerstick) 361 mg/dL (70-99) 581 mg/dL (70-99) 451 mg/dL (70-99) 329 mg/dL (70-99) Test 06/14/20 03:29 06/14/20 08:50 Glucose (Fingerstick) 155 mg/dL (70-99) 175 mg/dL (70-99) Imaging: CT A/P Impression: 1. Dilated rectal vault with impacted stool with the lumen measuring up to 10 cm in transverse dimension. Surrounding wall thickening without pneumatosis or perforation. Presacral edema noted as well collectively raising the question of stercoral colitis. An enema could be attempted to help relieve versus manual decompaction as necessary. Proximal to this impacted stool the colonic luminal contents are somewhat hyperdense which could be related to blood products given history. No mass is appreciated and should this represent hemorrhage it could be originating from diverticuli or theoretically from pressure ulceration given the extent of impacted stool. 2. Redemonstration of groundglass and consolidative opacities throughout both lower lungs appearing slightly worsened at the left lung base. The previously seen left pleural effusion has resolved. 3. Mild hepatic steatosis. 4. Enlargement of the partially imaged heart. PE: GEN: in COVID isolation in ICU LUNGS: vapotherm HEART: RR on monitor ABD: non-distended NEURO/PSYCH: resting A/P: COVID-19 resp failure Hematochezia - resolved, suspected stercoral ulcer Anemia - improved w/ transfusion -- ADAT, PO PPI, monitor labs. Justicifation of Admission Dx: Justifications for Admission: Justification of Admission Dx: Yes Altered Mental Status: Altered Mental Status JANE SINGLETARY Jun 14, 2020 12:45
--- NOTE | 2020-06-14 13:34 | PDOC ---
[employer] PROGRESS NOTE Chief Complaint Chief Complaint Acute hypoxic respiratory failure secondary to multifocal infiltrate/pleural effusions Sepsis, POA Hyperthyroidism likely Graves Dz Hypoglycemia,RESOLVED encephalopathy,resolved Severe protein-calorie malnutrition. DM2, HTN urinary retention, maldonado in place COVID + 05/30 - COVID-19 negative on 05/18/2020 and 05/19/2020. Remdesivir given Pneumonia. sputum cx: Resp gerri. Off vanc/Zosyn/doxy. Off Augmentin. back of zosyn given colitis CHF, not in exacerbation Severe protein-calorie malnutrition Gram-positive cocci bacteremia, 05/18/2020, 1 out of 2 bottles, ID MICROCOCCUS SPECIES, likely a contaminant. Bradycardia--holding BB for now Lower GI bleed Colitis Fecal Impaction Stercoral Ulcer Anemia with Hb of 6.1 now History of Present Illness History of Present Illness 06/14/2020 Patient seen and examined She is still in the COVID ICU On Vapotherm O2 Discussed with case management Discussed with RN Chart reviewed Appears critically ill Vitals/I&O Vitals/I&O: Vital Signs Date Time Temp Pulse Resp B/P (MAP) Pulse Ox O2 Delivery O2 Flow Rate FiO2 06/14/20 12:00 Nasal Cannula 40.0 06/14/20 12:00 98.4 86 20 118/58 (78) 99 98.4 l I & O 06/13/20 06/13/20 06/14/20 15:00 23:00 07:00 Intake Total 900 ml 100 ml 100 ml Output Total 315 ml 1075 ml 520 ml Balance 585 ml -975 ml -420 ml Physical Exam Physical Exam: GENERAL: Propped up in bed, alert, appears comfortable HEENT: Oral cavity clear NECK: Supple. LUNGS: Diminished aeration, no accessory muscle use HEART: S1, S2. regular ABDOMEN: Obese, soft : Maldonado in place EXTREMITIES: Trace edema lower extremities bilaterally. No cyanosis DERMATOLOGIC: Warm, dry. No generalized rash. PIV General: moderate distress Heart: Other (tachy) Lungs: Crackles Abdomen: Soft (reports tenderness in lower abdomen, no guarding or peritoneal signs, no distension) Extremities: No clubbing, No cyanosis Labs Labs: Laboratory Tests Test 06/13/20 17:00 06/13/20 17:29 06/13/20 20:32 7/19/20 22:19 Hemoglobin 7.8 g/dL (12.0-15.5) Hematocrit 23.6 % (36.0-47.0) Glucose (Fingerstick) 361 mg/dL (70-99) 581 mg/dL (70-99) 451 mg/dL (70-99) Test 06/13/20 23:44 06/14/20 03:29 06/14/20 08:50 06/14/20 09:50 Glucose (Fingerstick) 329 mg/dL (70-99) 155 mg/dL (70-99) 175 mg/dL (70-99) White Blood Count 11.5 x10^3/uL (4.0-11.0) Red Blood Count 2.70 x10^6/uL (3.50-5.40) Hemoglobin 7.4 g/dL (12.0-15.5) Hematocrit 22.4 % (36.0-47.0) Mean Corpuscular Volume 83 fL (79-100) Mean Corpuscular Hemoglobin 27 pg (25-35) Mean Corpuscular Hemoglobin Concent 33 g/dL (31-37) Red Cell Distribution Width 17.7 % (11.5-14.5) Platelet Count 135 x10^3/uL (140-400) Neutrophils (%) (Auto) 90 % (31-73) Lymphocytes (%) (Auto) 5 % (24-48) Monocytes (%) (Auto) 3 % (0-9) Eosinophils (%) (Auto) 3 % (0-3) Basophils (%) (Auto) 0 % (0-3) Neutrophils # (Auto) 10.3 x10^3/uL (1.8-7.7) Lymphocytes # (Auto) 0.6 x10^3/uL (1.0-4.8) Monocytes # (Auto) 0.3 x10^3/uL (0.0-1.1) Eosinophils # (Auto) 0.3 x10^3/uL (0.0-0.7) Basophils # (Auto) 0.0 x10^3/uL (0.0-0.2) Sodium Level 140 mmol/L (136-145) Potassium Level 3.9 mmol/L (3.5-5.1) Chloride Level 103 mmol/L (98-107) Carbon Dioxide Level 31 mmol/L (21-32) Anion Gap 6 (6-14) Blood Urea Nitrogen 16 mg/dL (7-20) Creatinine 0.8 mg/dL (0.6-1.0) Estimated GFR (Cockcroft-Gault) 71.3 Glucose Level 199 mg/dL (70-99) Calcium Level 7.3 mg/dL (8.5-10.1) Assessment and Plan Assessmemt and Plan Problems Medical Problems: (1) Altered mental status Status: Acute (2) Hypoglycemia Status: Acute (3) Hypothermia Status: Acute Acute hypoxic respiratory failure secondary to multifocal infiltrate/pleural effusions Sepsis, POA Hyperthyroidism likely Graves Dz Hypoglycemia,RESOLVED encephalopathy,resolved Severe protein-calorie malnutrition. DM2, HTN urinary retention, maldonado in place COVID + 7/5 - COVID-19 negative on 05/18/2020 and 05/19/2020. Remdesivir given Pneumonia. sputum cx: Resp gerri. Off vanc/Zosyn/doxy. Off Augmentin. back of zosyn given colitis CHF, not in exacerbation Severe protein-calorie malnutrition Gram-positive cocci bacteremia, 05/18/2020, 1 out of 2 bottles, ID MICROCOCCUS SPECIES, likely a contaminant. Bradycardia--holding BB for now Lower GI bleed Colitis Fecal Impaction Stercoral Ulcer Anemia with Hb of 6.1 now Plan Vapotherm COVID-19 protocol Respiratory isolation ICU monitoring Home meds DVT prophylaxis Full code Appreciate subspecialist input Trend labs PRN transfusions She remains critically ill Total time 31 minutes Comment Review of Relevant I have reviewed the following items kavya (where applicable) has been applied. Medications: Current Medications Medications (Trade) Dose Ordered Sig/Nini Route PRN Reason Start Time Stop Time Status Last Admin Dose Admin Methylprednisolone Sodium Succinate (SOLU-Medrol 40MG VIAL) 40 mg DAILY IV 06/14/20 09:00 06/14/20 08:42 Insulin Human Lispro (HumaLOG) 10 units 1X ONCE SQ 06/13/20 21:00 06/13/20 21:01 DC 06/13/20 20:50 Justicifation of Admission Dx: Justifications for Admission: Justification of Admission Dx: Yes Altered Mental Status: Altered Mental Status DOUG TRIMBLE III DO Jun 14, 2020 13:34
--- NOTE | 2020-06-14 14:55 | PDOC ---
PULMONARY PROGRESS NOTES Subjective Patient eating not more short of air abdominal discomfort better Vitals Vital Signs Date Time Temp Pulse Resp B/P (MAP) Pulse Ox O2 Delivery O2 Flow Rate FiO2 06/14/20 14:00 69 20 122/59 (80) 99 Vapotherm 40.0 06/14/20 12:00 98.4 98.4 Comments cassidy as mentioned as above other sys otherwise neg ROS: No Chest Pain, No Increase Cough General: Alert Lungs: Crackles Cardiovascular: S1, S2 Abdomen: Soft, Non-tender Neuro Exam: Alert Extremities: Other (+2 BLE ) Skin: Warm Labs Laboratory Tests Test 06/12/20 17:22 06/12/20 20:43 06/13/20 05:00 06/13/20 08:21 Glucose (Fingerstick) 360 mg/dL (70-99) 191 mg/dL (70-99) 71 mg/dL (70-99) White Blood Count 11.9 x10^3/uL (4.0-11.0) Red Blood Count 2.17 x10^6/uL (3.50-5.40) Hemoglobin 6.1 g/dL (12.0-15.5) Hematocrit 18.4 % (36.0-47.0) Mean Corpuscular Volume 85 fL (79-100) Mean Corpuscular Hemoglobin 28 pg (25-35) Mean Corpuscular Hemoglobin Concent 33 g/dL (31-37) Red Cell Distribution Width 18.8 % (11.5-14.5) Platelet Count 140 x10^3/uL (140-400) Neutrophils (%) (Auto) 89 % (31-73) Lymphocytes (%) (Auto) 6 % (24-48) Monocytes (%) (Auto) 3 % (0-9) Eosinophils (%) (Auto) 2 % (0-3) Basophils (%) (Auto) 0 % (0-3) Neutrophils # (Auto) 10.6 x10^3/uL (1.8-7.7) Lymphocytes # (Auto) 0.7 x10^3/uL (1.0-4.8) Monocytes # (Auto) 0.3 x10^3/uL (0.0-1.1) Eosinophils # (Auto) 0.3 x10^3/uL (0.0-0.7) Basophils # (Auto) 0.0 x10^3/uL (0.0-0.2) Sodium Level 139 mmol/L (136-145) Potassium Level 4.2 mmol/L (3.5-5.1) Chloride Level 106 mmol/L (98-107) Carbon Dioxide Level 29 mmol/L (21-32) Anion Gap 4 (6-14) Blood Urea Nitrogen 30 mg/dL (7-20) Creatinine 0.7 mg/dL (0.6-1.0) Estimated GFR (Cockcroft-Gault) 83.2 Glucose Level 72 mg/dL (70-99) Calcium Level 7.0 mg/dL (8.5-10.1) Test 06/13/20 17:00 06/13/20 17:29 06/13/20 20:32 06/13/20 22:19 Hemoglobin 7.8 g/dL (12.0-15.5) Hematocrit 23.6 % (36.0-47.0) Glucose (Fingerstick) 361 mg/dL (70-99) 581 mg/dL (70-99) 451 mg/dL (70-99) Test 06/13/20 23:44 06/14/20 03:29 06/14/20 08:50 06/14/20 09:50 Glucose (Fingerstick) 329 mg/dL (70-99) 155 mg/dL (70-99) 175 mg/dL (70-99) White Blood Count 11.5 x10^3/uL (4.0-11.0) Red Blood Count 2.70 x10^6/uL (3.50-5.40) Hemoglobin 7.4 g/dL (12.0-15.5) Hematocrit 22.4 % (36.0-47.0) Mean Corpuscular Volume 83 fL (79-100) Mean Corpuscular Hemoglobin 27 pg (25-35) Mean Corpuscular Hemoglobin Concent 33 g/dL (31-37) Red Cell Distribution Width 17.7 % (11.5-14.5) Platelet Count 135 x10^3/uL (140-400) Neutrophils (%) (Auto) 90 % (31-73) Lymphocytes (%) (Auto) 5 % (24-48) Monocytes (%) (Auto) 3 % (0-9) Eosinophils (%) (Auto) 3 % (0-3) Basophils (%) (Auto) 0 % (0-3) Neutrophils # (Auto) 10.3 x10^3/uL (1.8-7.7) Lymphocytes # (Auto) 0.6 x10^3/uL (1.0-4.8) Monocytes # (Auto) 0.3 x10^3/uL (0.0-1.1) Eosinophils # (Auto) 0.3 x10^3/uL (0.0-0.7) Basophils # (Auto) 0.0 x10^3/uL (0.0-0.2) Sodium Level 140 mmol/L (136-145) Potassium Level 3.9 mmol/L (3.5-5.1) Chloride Level 103 mmol/L (98-107) Carbon Dioxide Level 31 mmol/L (21-32) Anion Gap 6 (6-14) Blood Urea Nitrogen 16 mg/dL (7-20) Creatinine 0.8 mg/dL (0.6-1.0) Estimated GFR (Cockcroft-Gault) 71.3 Glucose Level 199 mg/dL (70-99) Calcium Level 7.3 mg/dL (8.5-10.1) Laboratory Tests Test 06/13/20 17:00 06/13/20 17:29 06/13/20 20:32 06/13/20 22:19 Hemoglobin 7.8 g/dL (12.0-15.5) Hematocrit 23.6 % (36.0-47.0) Glucose (Fingerstick) 361 mg/dL (70-99) 581 mg/dL (70-99) 451 mg/dL (70-99) Test 06/13/20 23:44 06/14/20 03:29 06/14/20 08:50 06/14/20 09:50 Glucose (Fingerstick) 329 mg/dL (70-99) 155 mg/dL (70-99) 175 mg/dL (70-99) White Blood Count 11.5 x10^3/uL (4.0-11.0) Red Blood Count 2.70 x10^6/uL (3.50-5.40) Hemoglobin 7.4 g/dL (12.0-15.5) Hematocrit 22.4 % (36.0-47.0) Mean Corpuscular Volume 83 fL (79-100) Mean Corpuscular Hemoglobin 27 pg (25-35) Mean Corpuscular Hemoglobin Concent 33 g/dL (31-37) Red Cell Distribution Width 17.7 % (11.5-14.5) Platelet Count 135 x10^3/uL (140-400) Neutrophils (%) (Auto) 90 % (31-73) Lymphocytes (%) (Auto) 5 % (24-48) Monocytes (%) (Auto) 3 % (0-9) Eosinophils (%) (Auto) 3 % (0-3) Basophils (%) (Auto) 0 % (0-3) Neutrophils # (Auto) 10.3 x10^3/uL (1.8-7.7) Lymphocytes # (Auto) 0.6 x10^3/uL (1.0-4.8) Monocytes # (Auto) 0.3 x10^3/uL (0.0-1.1) Eosinophils # (Auto) 0.3 x10^3/uL (0.0-0.7) Basophils # (Auto) 0.0 x10^3/uL (0.0-0.2) Sodium Level 140 mmol/L (136-145) Potassium Level 3.9 mmol/L (3.5-5.1) Chloride Level 103 mmol/L (98-107) Carbon Dioxide Level 31 mmol/L (21-32) Anion Gap 6 (6-14) Blood Urea Nitrogen 16 mg/dL (7-20) Creatinine 0.8 mg/dL (0.6-1.0) Estimated GFR (Cockcroft-Gault) 71.3 Glucose Level 199 mg/dL (70-99) Calcium Level 7.3 mg/dL (8.5-10.1) Medications Active Scripts Medications Dose Route/Sig Max Daily Dose Days Date Category Actos (Pioglitazone Hcl) 45 Mg Tablet 1 Tab PO DAILY 05/18/20 Reported Diclofenac Sodium 75 Mg Tablet.dr 1 Tab PO BID 05/18/20 Reported Klor-Con 10 (Potassium Chloride) 10 Meq Tablet.er 1 Tab PO DAILY 30 05/18/20 Reported Metformin Hcl 1,000 Mg Tablet 1,000 Mg PO BIDWMEALS 05/18/20 Reported Omeprazole 20 Mg Capsule. 1 Cap PO DAILY 05/18/20 Reported Lisinopril-Hctz 20-25 Mg Tab (Lisinopril/Hydrochlorothiazide) 1 Each Tablet 1 Tab PO DAILY 05/18/20 Reported Aspirin Ec (Aspirin) 81 Mg Tablet.dr 1 Tab PO DAILY 05/18/20 Reported Hydralazine Hcl 100 Mg Tablet 1 Tab PO BID 05/18/20 Reported Metoprolol Tartrate 50 Mg Tablet 1 Tab PO BID 05/18/20 Reported Rosuvastatin Calcium 10 Mg Tablet 10 Mg PO DAILY 05/18/[address] of abd 1. Dilated rectal vault with impacted stool with the lumen measuring up to 10 cm in transverse dimension. Surrounding wall thickening without pneumatosis or perforation. Presacral edema noted as well collectively raising the question of stercoral colitis. An enema could be attempted to help relieve versus manual decompaction as necessary. Proximal to this impacted stool the colonic luminal contents are somewhat hyperdense which could be related to blood products given history. No mass is appreciated and should this represent hemorrhage it could be originating from diverticuli or theoretically from pressure ulceration given the extent of impacted stool. 2. Redemonstration of groundglass and consolidative opacities throughout both lower lungs appearing slightly worsened at the left lung base. The previously seen left pleural effusion has resolved. 3. Mild hepatic steatosis. 4. Enlargement of the partially imaged heart. CXR : reviewed Moderate bilateral infiltrates could be secondary to atypical pneumonia or CHF. This appears similar to the prior study although there is improved aeration of the left lung base. Impression . IMPRESSION: 1. Acute hypoxic respiratory failure secondary to COVID-19 2. Abnormal chest x-ray/ARDS 3. Fever, resolved 4. Hypoglycemic encephalopathy, resolved. 5. Severe protein-calorie malnutrition. 6. Mild azotemia. 7. SARS-CoV-2 negative x2, May 18, May 19 8. + blood cultures, likely contaminant 9. Possible Boop 10. Negative CT angiogram for PE 11. Acute lung injury 11. SARS-CoV-2 positive on May 31/COVID- 12. Abdominal discomfort ct reviewed, per gi 13. Elevated lactic acid level 14. fecal impaction cxr 06/08 IMPRESSION: Moderate prominent bilateral interstitial lung markings likely congestive changes or interstitial infiltrates. Follow-up to resolution. Impression: CT Chest 1. No evidence of pulmonary embolism. 2. Mild left effusion and moderate bilateral infiltrates right worse than left. This could be ARDS or pulmonary edema or atypical pneumonia. Plan . Patient doing better advance diet Titrate FiO2 down Surgery signed off Restart Lovenox DC steroid SARS COVID 2, reported positive from 05/31, s/p Remdesivir ABX per ID DM per IM HTN per IM D/W RN and RT critically ill Total cumulative critical care time of 30 minutes, reviewing data, chest x-ray, and formulating a plan no overlap KING WHITTINGTON MD Jun 14, 2020 14:54
[2020-06-14] MEDS: ENOXAPARIN 40 MG/0.4 ML SYRINGE. SQ SCH (16:00)
[2020-06-14] MEDS: ATORVASTATIN CALCIUM 40 MG TABLET. PO SCH (20:28)
[2020-06-14] MEDS: INSULIN GLARGINE SYRINGE. SQ SCH (20:30)
[2020-06-15] VITALS (19 sets, daily range): BP systolic 116–158; BP diastolic 53–75
[2020-06-15] MEDS: STERILE WATER for RESP 1,000 ML BAG. INH PRN (04:23)
[2020-06-15] MEDS: PIPERACILLIN/TAZOBACTAM 2.25 GM in IV NORMAL SALINE 50ML 50 ML IV SCH ×2 (06:09→14:28)
[2020-06-15] MEDS: POLYETHYLENE GLYCOL 3350 17 GM PACKET. PO SCH ×2 (06:09→18:00)
[2020-06-15] MEDS ORDERED: PANTOPRAZOLE 40 MG TABLET.DR. PO SCH (07:30)
[2020-06-15] MEDS: LACTOBACILLUS RHAMNOSUS GG 1 CAPSULE. PO SCH (07:47)
[2020-06-15] MEDS: NYSTATIN 100,000 UNITS/ML 5 ML ORAL.SUSP. SWSW SCH ×3 (07:47→16:43)
[2020-06-15] MEDS: methIMAzole 10 MG TABLET PO SCH (07:47)
[2020-06-15] MEDS: amLODIPine BESYLATE 10 MG TABLET PO SCH (07:47)
[2020-06-15] MEDS: LISINOPRIL 20 MG TABLET PO SCH (07:48)
[2020-06-15] MEDS: hydroCHLOROthiazide 12.5 MG CAPSULE PO SCH (07:48)
[2020-06-15] MEDS: INSULIN LISPRO 300 UNITS/3 ML VIAL. SQ SCH ×3 (08:00→18:12)
--- NOTE | 2020-06-15 08:03 | PDOC ---
Infectious Disease Note Subjective: Subjective Says feeling ok Eating breakfast on vapotherm 40 L ; FiO2 100% No fevers last 48 hrs + BM Vital Signs: Vital Signs Vital Signs Date Time Temp Pulse Resp B/P (MAP) Pulse Ox O2 Delivery O2 Flow Rate FiO2 06/15/20 07:00 74 30 150/75 (100) 98 Vapotherm 40.0 06/15/20 03:00 98.3 98.3 Physical Exam: PHYSICAL EXAM GENERAL: Propped up in bed, alert, appears comfortable HEENT: Oral cavity clear NECK: Supple. LUNGS: Diminished aeration, no accessory muscle use HEART: S1, S2. regular ABDOMEN: Obese, soft : Galan in place EXTREMITIES: Trace edema lower extremities bilaterally. No cyanosis DERMATOLOGIC: Warm, dry. No generalized rash. PIV Medications: Inpatient Meds: Current Medications Medications (Trade) Dose Ordered Sig/Nini Start Time Stop Time Status Last Admin Dose Admin Acetaminophen (Tylenol Supp) 650 mg PRN Q4HRS PRN 05/18/20 16:30 Acetaminophen (Tylenol) 650 mg PRN Q4HRS PRN 05/18/20 16:30 06/10/20 12:33 650 MG Albuterol Sulfate (Ventolin Neb Soln) 2.5 mg Q4HRS 05/21/20 20:00 05/31/20 16:19 DC 05/30/20 15:45 2.5 MG Amlodipine Besylate (Norvasc) 10 mg DAILY 06/10/20 09:00 06/14/20 08:39 10 MG Amoxicillin/ Clavulanate Potassium (Augmentin 875/ 125mg) 1 tab BID 05/28/20 21:00 05/31/20 21:01 DC 05/31/20 19:53 1 TAB Aspirin (Ecotrin) 81 mg DAILY 05/19/20 09:00 06/11/20 13:19 DC 06/11/20 08:29 81 MG Atorvastatin Calcium (Lipitor) 40 mg QHS 05/19/20 21:00 06/14/20 20:28 40 MG Ceftriaxone Sodium (Rocephin) 1 gm Q24H 05/19/20 09:00 05/24/20 18:10 DC 05/24/20 09:09 1 GM Dextrose (Dextrose 50%-Water Syringe) 12.5 gm PRN Q15MIN PRN 05/19/20 14:15 06/04/20 06:52 12.5 GM Diclofenac Sodium (Voltaren) 75 mg BID 06/04/20 09:00 06/11/20 13:19 DC 06/10/20 21:15 75 MG Docusate Sodium (Colace) 100 mg PRN BID PRN 05/18/20 16:30 06/10/20 22:32 100 MG Doxycycline Hyclate (Vibra-Tab) 100 mg BID 05/21/20 15:00 05/28/20 15:02 DC 05/28/20 08:53 100 MG Enoxaparin Sodium (Lovenox 40mg Syringe) 40 mg Q24H 06/14/20 16:00 Fentanyl Citrate (Fentanyl 2ml Vial) 50 mcg 1X ONCE 05/25/20 10:30 05/25/20 10:31 Cancel Furosemide (Lasix) 40 mg 1X ONCE 06/08/20 11:00 06/08/20 11:02 DC 06/08/20 11:14 40 MG Guaifenesin (Robitussin) 200 mg PRN Q4HRS PRN 05/18/20 16:30 05/23/20 20:00 200 MG Hydralazine HCl (Apresoline Inj) 10 mg 1X ONCE 06/10/20 03:00 06/10/20 03:01 DC 06/10/20 03:16 10 MG Hydralazine HCl (Apresoline) 100 mg BID 05/23/20 10:30 06/14/20 20:29 100 MG Hydrochlorothiazide (Hydrodiuril) 25 mg DAILY 05/19/20 10:00 05/23/20 10:22 DC 05/23/20 08:59 25 MG Hydrochlorothiazide (Microzide) 12.5 mg DAILY 05/24/20 09:00 06/14/20 08:39 12.5 MG Info (CONTRAST GIVEN -- Rx MONITORING) 1 each PRN DAILY PRN 06/11/20 13:15 06/13/20 13:14 DC Insulin Glargine (Lantus Syringe) 20 unit QHS 06/10/20 13:45 06/14/20 20:30 20 UNIT Insulin Human Lispro (HumaLOG) 10 units 1X ONCE 06/13/20 21:00 06/13/20 21:01 DC 06/13/20 20:50 10 UNITS Iohexol (Omnipaque 300 Mg/ml) 75 ml 1X ONCE 06/11/20 13:15 06/11/20 13:16 DC 06/11/20 14:50 75 ML Iohexol (Omnipaque 350 Mg/ml) 100 ml 1X ONCE 05/30/20 12:00 05/30/20 12:01 DC 05/30/20 12:00 100 ML Lactobacillus Rhamnosus (Culturelle) 1 cap BID 05/19/20 21:00 06/14/20 20:28 1 CAP Lactulose (Lactulose) 30 gm 1X ONCE 06/11/20 20:00 06/11/20 20:01 DC 06/11/20 20:30 30 GM Lisinopril (Prinivil) 40 mg DAILY 05/23/20 10:30 06/14/20 08:40 40 MG Methimazole (Tapazole) 5 mg BID 05/20/20 10:00 06/14/20 20:29 5 MG Methylprednisolone Sodium Succinate (SOLU-Medrol 40MG VIAL) 40 mg DAILY 06/14/20 09:00 06/14/20 14:58 DC 06/14/20 08:42 40 MG Methylprednisolone Sodium Succinate (SOLU-Medrol 125MG VIAL) 60 mg DAILY 06/12/20 09:00 06/13/20 10:24 DC 06/13/20 08:12 60 MG Metoprolol Tartrate (Lopressor) 50 mg BID 05/23/20 10:30 06/08/20 10:43 DC 06/08/20 08:23 50 MG Midazolam HCl (Versed) 2 mg 1X ONCE 05/25/20 10:30 05/25/20 10:31 Cancel Morphine Sulfate (Morphine Sulfate) 2 mg PRN Q2HR PRN 06/11/20 15:15 06/13/20 21:19 2 MG Non-Formulary Medication 1 ea/ Sodium Chloride 230 ml @ 460 mls/hr DAILY 06/02/20 09:00 06/05/20 09:29 DC 06/05/20 17:38 460 MLS/HR Nystatin (Nystatin Oral Susp) 5 ml [id number] 05/27/20 17:00 06/14/20 20:31 5 ML Ondansetron HCl (Zofran) 4 mg PRN Q4HRS PRN 05/18/20 16:30 Pantoprazole Sodium (PROTONIX VIAL for IV PUSH) 40 mg DAILYAC 06/12/20 07:30 06/14/20 12:47 DC 06/14/20 08:39 40 MG Pantoprazole Sodium (Protonix) 40 mg DAILYAC 06/15/20 07:30 Piperacillin Sod/ Tazobactam Sod 2.25 gm/Sodium Chloride 50 ml @ 100 mls/hr Q8HRS 06/11/20 17:00 06/15/20 06:09 100 MLS/HR Piperacillin Sod/ Tazobactam Sod 3.375 gm/Sodium Chloride 50 ml @ 100 mls/hr Q6HRS 05/24/20 18:30 05/28/20 15:01 DC 05/28/20 12:09 100 MLS/HR Polyethylene Glycol (miraLAX PACKET) 17 gm [id number] 06/11/20 20:00 06/15/20 06:09 17 GM Potassium Chloride (Klor-Con) 40 meq 1X ONCE 06/03/20 08:00 06/03/20 08:01 DC 06/03/20 09:51 40 MEQ Sodium Monofluorophosphate (Fleet Adult) 133 ml PRN DAILY PRN 05/18/20 16:30 06/12/20 11:09 133 ML Sodium Chloride 500 ml @ 500 mls/hr 1X ONCE 06/12/20 13:00 06/12/20 13:59 DC 06/12/20 13:10 500 MLS/HR Sodium Chloride (Normal Saline Flush) 3 ml QSHIFT PRN 05/18/20 16:30 Sterile Water (WATER for RESP) 1,000 ml CONT PRN 05/30/20 13:00 06/15/20 04:23 1,000 ML Vancomycin HCl (Vanco Per Pharmacy) 1 each PRN DAILY PRN 05/22/20 09:00 05/27/20 16:29 DC 05/25/20 23:52 1 EACH Vancomycin HCl (Vancomycin Trough Level) 1 each 1X ONCE 05/25/20 22:00 05/25/20 22:01 DC 05/25/20 22:00 1 EACH Vancomycin HCl 1.25 gm/Sodium Chloride 250 ml @ 167 mls/hr Q12H 05/24/20 10:30 7/2/20 16:26 DC 05/27/20 08:21 167 MLS/HR Vancomycin HCl 2 gm/Sodium Chloride 500 ml @ 250 mls/hr 1X ONCE 05/22/20 09:00 05/22/20 10:59 DC 05/22/20 09:05 250 MLS/HR Labs: Lab Laboratory Tests Test 06/14/20 08:50 06/14/20 09:50 06/14/20 12:06 06/14/20 17:35 Glucose (Fingerstick) 175 mg/dL (70-99) 182 mg/dL (70-99) 345 mg/dL (70-99) White Blood Count 11.5 x10^3/uL (4.0-11.0) Red Blood Count 2.70 x10^6/uL (3.50-5.40) Hemoglobin 7.4 g/dL (12.0-15.5) Hematocrit 22.4 % (36.0-47.0) Mean Corpuscular Volume 83 fL (79-100) Mean Corpuscular Hemoglobin 27 pg (25-35) Mean Corpuscular Hemoglobin Concent 33 g/dL (31-37) Red Cell Distribution Width 17.7 % (11.5-14.5) Platelet Count 135 x10^3/uL (140-400) Neutrophils (%) (Auto) 90 % (31-73) Lymphocytes (%) (Auto) 5 % (24-48) Monocytes (%) (Auto) 3 % (0-9) Eosinophils (%) (Auto) 3 % (0-3) Basophils (%) (Auto) 0 % (0-3) Neutrophils # (Auto) 10.3 x10^3/uL (1.8-7.7) Lymphocytes # (Auto) 0.6 x10^3/uL (1.0-4.8) Monocytes # (Auto) 0.3 x10^3/uL (0.0-1.1) Eosinophils # (Auto) 0.3 x10^3/uL (0.0-0.7) Basophils # (Auto) 0.0 x10^3/uL (0.0-0.2) Sodium Level 140 mmol/L (136-145) Potassium Level 3.9 mmol/L (3.5-5.1) Chloride Level 103 mmol/L (98-107) Carbon Dioxide Level 31 mmol/L (21-32) Anion Gap 6 (6-14) Blood Urea Nitrogen 16 mg/dL (7-20) Creatinine 0.8 mg/dL (0.6-1.0) Estimated GFR (Cockcroft-Gault) 71.3 Glucose Level 199 mg/dL (70-99) Calcium Level 7.3 mg/dL (8.5-10.1) Test 06/14/20 19:29 06/15/20 07:54 Glucose (Fingerstick) 302 mg/dL (70-99) 137 mg/dL (70-99) Objective: Assessment: COVID-19 viral infection, 05/30. (negative on 05/18/2020 and ) s/p Remdesivir Acute hypoxic respiratory failure Pneumonia. sputum cx: Resp gerri. Off vanc/Zosyn/doxy. Off augmentin Fever - now resolved Leukocytosis, on steroids. CHF Hypoglycemic encephalopathy, resolved. Diabetes. Hypertension. Severe protein-calorie malnutrition. Gram-positive cocci bacteremia, 05/18/2020, 1 out of 2 bottles, ID MICROCOCCUS SPECIES, likely a contaminant. Thrush - better Constipation/impaction s/p enemas/laxatives Anemia Plan: Plan of Care Zosyn restarted 06/11 Steroids per pulmonary Maintain aspiration precautions Anemia per primary Supportive care Airborne isolation for + COVID Awaiting transfer to select D/w nursing MARYBETH REDMOND MD Jun 15, 2020 08:03
[2020-06-15 10:20] LABS: BASO % 0 % (0-3); EOS # 0.3 x10^3/uL (0.0-0.7); EOS % 3 % (0-3); HEMATOCRIT 23.8 % (36.0-47.0); HEMOGLOBIN 7.8 g/dL (12.0-15.5); LYMPH # 0.6 x10^3/uL (1.0-4.8); LYMPH % 6 % (24-48); MEAN CORPUSCULAR HEMOGLOBIN 27 pg (25-35); MEAN CORPUSCULAR HGB CONC 33 g/dL (31-37); MEAN CORPUSCULAR VOLUME 84 fL (79-100); MONO # 0.4 x10^3/uL (0.0-1.1); MONO % 3 % (0-9); NEUT % 88 % (31-73); PLATELET COUNT 142 x10^3/uL (140-400); RED BLOOD COUNT 2.85 x10^6/uL (3.50-5.40); RED CELL DISTRIBUTION WIDTH 17.6 % (11.5-14.5); WHITE BLOOD COUNT 11.3 x10^3/uL (4.0-11.0)
[2020-06-15 10:27] LABS: CALCIUM 7.4 mg/dL (8.5-10.1); CREATININE 0.6 mg/dL (0.6-1.0); GFR 99.4; POTASSIUM 3.9 mmol/L (3.5-5.1)
--- NOTE | 2020-06-15 10:44 | NUR ---
SS following up with discharge planning. SS reviewed pt chart and discussed with pt RN. Pt remains on Vapotherm at this time. COVID19 positive. Pt accepted at [facility], ; fax [phone], and has insurance authorization. Possible bed available at [facility] today. Genevieve at [facility] to contact SS by noon to discuss bed availability. Discharge medication list placed on chart. Physician notified. Packet and [facility] form on chart. SS will continue to follow for discharge planning.
[2020-06-15] MEDS: DOCUSATE SODIUM 100 MG CAPSULE. PO PRN (11:22)
[2020-06-15] MEDS: ACETAMINOPHEN 325 MG TABLET. PO PRN (11:23)
--- NOTE | 2020-06-15 11:24 | PDOC ---
Objective: Objective: Reviewed chart - possible DC to [facility] today. Tolerating regular diet. Vital Signs: Vital Signs Date Time Temp Pulse Resp B/P (MAP) Pulse Ox O2 Delivery O2 Flow Rate FiO2 06/15/20 11:00 79 30 135/65 (88) 97 Vapotherm 40.0 06/15/20 08:00 97.6 97.6 Labs: Laboratory Tests Test 06/14/20 12:06 06/14/20 17:35 06/14/20 19:29 06/15/20 07:54 Glucose (Fingerstick) 182 mg/dL (70-99) 345 mg/dL (70-99) 302 mg/dL (70-99) 137 mg/dL (70-99) PE: GEN: in COVID isolation LUNGS: vaportherm HEART: RRR ABD: non-distended NEURO/PSYCH: resting A/P: COVID-19 resp failure Hematochezia/suspected stercoral ulcer - bleeding resolving, stooling Anemia - stable/improving -- DC per primary. Okay to continue PPI and Miralax. Justicifation of Admission Dx: Justifications for Admission: Justification of Admission Dx: Yes Altered Mental Status: Altered Mental Status JANE SINGLETARY Jun 15, 2020 11:24
--- NOTE | 2020-06-15 13:10 | SNU/HH DC ---
DISCHARGE ORDERS DISCHARGE INFORMATION: FINAL DIAGNOSIS Problems Medical Problems: (1) Altered mental status Status: Acute (2) Hypoglycemia Status: Acute (3) Hypothermia Status: Acute CONDITION ON DISCHARGE: Stable CODE STATUS: Code Status: Full SENIOR LIVING: SNF STAY <30 DAYS: No HOSPICE: HOSPICE: No HOSPICE EVAL & TREAT: No LTAC: ADMIT TO LTAC: Yes POST DISCHARGE ORDERS: ACTIVITY ORDERS: Bedrest today DIET AFTER DISCHARGE: Cardiac TREATMENT/EQUIPMENT ORDERS: Physical Therapy For: Evalulation/Treatment Occupational Therapy For: Evaluation/Treatment DISCHARGE MEDICATIONS: Home Meds Reported Medications Pioglitazone Hcl (ACTOS) 45 Mg Tablet, 1 TAB PO DAILY for DM for 30 Days, #30 TAB 0 Refills 05/18/20 Diclofenac Sodium (DICLOFENAC SODIUM) 75 Mg Tablet.dr, 1 TAB PO BID for anti inflammatory, #60 TAB 1 Refill 05/18/20 Potassium Chloride (Klor-Con 10) 10 Meq Tablet.er, 1 TAB PO DAILY for hypokalemia for 30 Days, #30 TAB 0 Refills 05/18/20 Metformin Hcl (METFORMIN HCL) 1,000 Mg Tablet, 1000 MG PO BIDWMEALS for DM, TAB 05/18/20 Omeprazole (OMEPRAZOLE) 20 Mg Capsule.dr, 1 CAP PO DAILY for GERD, #30 CAP 5 Refills 05/18/20 Lisinopril/Hydrochlorothiazide (LISINOPRIL-HCTZ 20-25 MG TAB) 1 Each Tablet, 1 TAB PO DAILY for CHF, #30 TAB 5 Refills 05/18/20 Aspirin (ASPIRIN EC) 81 Mg Tablet.dr, 1 TAB PO DAILY for HTN, #30 TAB 3 Refills 05/18/20 Hydralazine Hcl (HYDRALAZINE HCL) 100 Mg Tablet, 1 TAB PO BID for HTN, #90 TAB 5 Refills 05/18/20 Metoprolol Tartrate (METOPROLOL TARTRATE) 50 Mg Tablet, 1 TAB PO BID for Tachycardia, #60 TAB 5 Refills 05/18/20 Rosuvastatin Calcium (Rosuvastatin Calcium) 10 Mg Tablet, 10 MG PO DAILY for High cholestorol, TAB 05/18/20 CASTLENIAL K III DO Jun 15, 2020 13:10
--- NOTE | 2020-06-15 13:11 | PDOC ---
[employer] PROGRESS NOTE Chief Complaint Chief Complaint Acute hypoxic respiratory failure secondary to multifocal infiltrate/pleural effusions Sepsis, POA Hyperthyroidism likely Graves Dz Hypoglycemia,RESOLVED encephalopathy,resolved Severe protein-calorie malnutrition. DM2, HTN urinary retention, maldonado in place COVID + / - COVID-19 negative on 05/18/2020 and 05/19/2020. Remdesivir given Pneumonia. sputum cx: Resp gerri. Off vanc/Zosyn/doxy. Off Augmentin. back of zosyn given colitis CHF, not in exacerbation Severe protein-calorie malnutrition Gram-positive cocci bacteremia, 05/18/2020, 1 out of 2 bottles, ID MICROCOCCUS SPECIES, likely a contaminant. Bradycardia--holding BB for now Lower GI bleed Colitis Fecal Impaction Stercoral Ulcer Anemia with Hb of 6.1 now History of Present Illness History of Present Illness 06/15/2020 Patient seen and examined in the ICU Chart reviewed Discussed with RN Discussed with case management We are hoping to get her to select specialty LTAC today? 06/14/2020 Patient seen and examined She is still in the COVID ICU On Vapotherm O2 Discussed with case management Discussed with RN Chart reviewed Appears critically ill Vitals/I&O Vitals/I&O: Vital Signs Date Time Temp Pulse Resp B/P (MAP) Pulse Ox O2 Delivery O2 Flow Rate FiO2 06/15/20 13:00 110 40 127/53 (77) 92 Vapotherm 40.0 06/15/20 12:00 99.0 99.0 I & O 06/14/20 06/14/20 06/15/20 15:00 23:00 07:00 Output Total 630 ml 990 ml 240 ml Balance -630 ml -990 ml -240 ml Physical Exam Physical Exam: GENERAL: Propped up in bed, alert, appears comfortable HEENT: Oral cavity clear NECK: Supple. LUNGS: Diminished aeration, no accessory muscle use HEART: S1, S2. regular ABDOMEN: Obese, soft : Maldonado in place EXTREMITIES: Trace edema lower extremities bilaterally. No cyanosis DERMATOLOGIC: Warm, dry. No generalized rash. PIV General: moderate distress Heart: Other (tachy) Lungs: Crackles Abdomen: Soft (reports tenderness in lower abdomen, no guarding or peritoneal signs, no distension) Extremities: No clubbing, No cyanosis Labs Labs: Laboratory Tests Test 06/14/20 17:35 06/14/20 19:29 06/15/20 07:54 06/15/20 09:38 Glucose (Fingerstick) 345 mg/dL (70-99) 302 mg/dL (70-99) 137 mg/dL (70-99) White Blood Count 11.3 x10^3/uL (4.0-11.0) Red Blood Count 2.85 x10^6/uL (3.50-5.40) Hemoglobin 7.8 g/dL (12.0-15.5) Hematocrit 23.8 % (36.0-47.0) Mean Corpuscular Volume 84 fL (79-100) Mean Corpuscular Hemoglobin 27 pg (25-35) Mean Corpuscular Hemoglobin Concent 33 g/dL (31-37) Red Cell Distribution Width 17.6 % (11.5-14.5) Platelet Count 142 x10^3/uL (140-400) Neutrophils (%) (Auto) 88 % (31-73) Lymphocytes (%) (Auto) 6 % (24-48) Monocytes (%) (Auto) 3 % (0-9) Eosinophils (%) (Auto) 3 % (0-3) Basophils (%) (Auto) 0 % (0-3) Neutrophils # (Auto) 10.0 x10^3/uL (1.8-7.7) Lymphocytes # (Auto) 0.6 x10^3/uL (1.0-4.8) Monocytes # (Auto) 0.4 x10^3/uL (0.0-1.1) Eosinophils # (Auto) 0.3 x10^3/uL (0.0-0.7) Basophils # (Auto) 0.0 x10^3/uL (0.0-0.2) Sodium Level 138 mmol/L (136-145) Potassium Level 3.9 mmol/L (3.5-5.1) Chloride Level 103 mmol/L (98-107) Carbon Dioxide Level 31 mmol/L (21-32) Anion Gap 4 (6-14) Blood Urea Nitrogen 10 mg/dL (7-20) Creatinine 0.6 mg/dL (0.6-1.0) Estimated GFR (Cockcroft-Gault) 99.4 Glucose Level 182 mg/dL (70-99) Calcium Level 7.4 mg/dL (8.5-10.1) Test 06/15/20 12:58 Glucose (Fingerstick) 174 mg/dL (70-99) Assessment and Plan Assessmemt and Plan Problems Medical Problems: (1) Altered mental status Status: Acute (2) Hypoglycemia Status: Acute (3) Hypothermia Status: Acute Acute hypoxic respiratory failure secondary to multifocal infiltrate/pleural effusions Sepsis, POA Hyperthyroidism likely Graves Dz Hypoglycemia,RESOLVED encephalopathy,resolved Severe protein-calorie malnutrition. DM2, HTN urinary retention, maldonado in place COVID + 7/5 - COVID-19 negative on 05/18/2020 and 05/19/2020. Remdesivir given Pneumonia. sputum cx: Resp gerri. Off vanc/Zosyn/doxy. Off Augmentin. back of zosyn given colitis CHF, not in exacerbation Severe protein-calorie malnutrition Gram-positive cocci bacteremia, 05/18/2020, 1 out of 2 bottles, ID MICROCOCCUS SPECIES, likely a contaminant. Bradycardia--holding BB for now Lower GI bleed Colitis Fecal Impaction Stercoral Ulcer Anemia with Hb of 6.1 now Plan LTAC evaluation to select specialty in progress hope to discharge later today For now continue the following; Vapotherm COVID-19 protocol Respiratory isolation ICU monitoring Home meds DVT prophylaxis Full code Appreciate subspecialist input Trend labs Comment Review of Relevant I have reviewed the following items kavya (where applicable) has been applied. Medications: Current Medications Medications (Trade) Dose Ordered Sig/Nini Route PRN Reason Start Time Stop Time Status Last Admin Dose Admin Pantoprazole Sodium (Protonix) 40 mg DAILYAC PO 06/15/20 07:30 06/15/20 07:47 Justicifation of Admission Dx: Justifications for Admission: Justification of Admission Dx: Yes Altered Mental Status: Altered Mental Status DOUG TRIMBLE III DO Jun 15, 2020 13:11
--- NOTE | 2020-06-15 14:07 | PDOC ---
PULMONARY PROGRESS NOTES Subjective Patient not more short of air still hungry Vitals Vital Signs Date Time Temp Pulse Resp B/P (MAP) Pulse Ox O2 Delivery O2 Flow Rate FiO2 06/15/20 13:00 110 40 127/53 (77) 92 Vapotherm 40.0 06/15/20 12:00 99.0 99.0 Comments cassidy as mentioned as above other sys otherwise neg ROS: No Chest Pain, No Increase Cough General: Alert Lungs: Crackles Cardiovascular: S1, S2 Abdomen: Soft, Non-tender Neuro Exam: Alert Extremities: Other (+2 BLE ) Skin: Warm Labs Laboratory Tests Test 06/13/20 17:00 06/13/20 17:29 06/13/20 20:32 06/13/20 22:19 Hemoglobin 7.8 g/dL (12.0-15.5) Hematocrit 23.6 % (36.0-47.0) Glucose (Fingerstick) 361 mg/dL (70-99) 581 mg/dL (70-99) 451 mg/dL (70-99) Test 06/13/20 23:44 06/14/20 03:29 06/14/20 08:50 06/14/20 09:50 Glucose (Fingerstick) 329 mg/dL (70-99) 155 mg/dL (70-99) 175 mg/dL (70-99) White Blood Count 11.5 x10^3/uL (4.0-11.0) Red Blood Count 2.70 x10^6/uL (3.50-5.40) Hemoglobin 7.4 g/dL (12.0-15.5) Hematocrit 22.4 % (36.0-47.0) Mean Corpuscular Volume 83 fL (79-100) Mean Corpuscular Hemoglobin 27 pg (25-35) Mean Corpuscular Hemoglobin Concent 33 g/dL (31-37) Red Cell Distribution Width 17.7 % (11.5-14.5) Platelet Count 135 x10^3/uL (140-400) Neutrophils (%) (Auto) 90 % (31-73) Lymphocytes (%) (Auto) 5 % (24-48) Monocytes (%) (Auto) 3 % (0-9) Eosinophils (%) (Auto) 3 % (0-3) Basophils (%) (Auto) 0 % (0-3) Neutrophils # (Auto) 10.3 x10^3/uL (1.8-7.7) Lymphocytes # (Auto) 0.6 x10^3/uL (1.0-4.8) Monocytes # (Auto) 0.3 x10^3/uL (0.0-1.1) Eosinophils # (Auto) 0.3 x10^3/uL (0.0-0.7) Basophils # (Auto) 0.0 x10^3/uL (0.0-0.2) Sodium Level 140 mmol/L (136-145) Potassium Level 3.9 mmol/L (3.5-5.1) Chloride Level 103 mmol/L (98-107) Carbon Dioxide Level 31 mmol/L (21-32) Anion Gap 6 (6-14) Blood Urea Nitrogen 16 mg/dL (7-20) Creatinine 0.8 mg/dL (0.6-1.0) Estimated GFR (Cockcroft-Gault) 71.3 Glucose Level 199 mg/dL (70-99) Calcium Level 7.3 mg/dL (8.5-10.1) Test 06/14/20 12:06 06/14/20 17:35 06/14/20 19:29 06/15/20 07:54 Glucose (Fingerstick) 182 mg/dL (70-99) 345 mg/dL (70-99) 302 mg/dL (70-99) 137 mg/dL (70-99) Test 06/15/20 09:38 06/15/20 12:58 White Blood Count 11.3 x10^3/uL (4.0-11.0) Red Blood Count 2.85 x10^6/uL (3.50-5.40) Hemoglobin 7.8 g/dL (12.0-15.5) Hematocrit 23.8 % (36.0-47.0) Mean Corpuscular Volume 84 fL (79-100) Mean Corpuscular Hemoglobin 27 pg (25-35) Mean Corpuscular Hemoglobin Concent 33 g/dL (31-37) Red Cell Distribution Width 17.6 % (11.5-14.5) Platelet Count 142 x10^3/uL (140-400) Neutrophils (%) (Auto) 88 % (31-73) Lymphocytes (%) (Auto) 6 % (24-48) Monocytes (%) (Auto) 3 % (0-9) Eosinophils (%) (Auto) 3 % (0-3) Basophils (%) (Auto) 0 % (0-3) Neutrophils # (Auto) 10.0 x10^3/uL (1.8-7.7) Lymphocytes # (Auto) 0.6 x10^3/uL (1.0-4.8) Monocytes # (Auto) 0.4 x10^3/uL (0.0-1.1) Eosinophils # (Auto) 0.3 x10^3/uL (0.0-0.7) Basophils # (Auto) 0.0 x10^3/uL (0.0-0.2) Sodium Level 138 mmol/L (136-145) Potassium Level 3.9 mmol/L (3.5-5.1) Chloride Level 103 mmol/L (98-107) Carbon Dioxide Level 31 mmol/L (21-32) Anion Gap 4 (6-14) Blood Urea Nitrogen 10 mg/dL (7-20) Creatinine 0.6 mg/dL (0.6-1.0) Estimated GFR (Cockcroft-Gault) 99.4 Glucose Level 182 mg/dL (70-99) Calcium Level 7.4 mg/dL (8.5-10.1) Glucose (Fingerstick) 174 mg/dL (70-99) Laboratory Tests Test 06/14/20 17:35 06/14/20 19:29 06/15/20 07:54 06/15/20 09:38 Glucose (Fingerstick) 345 mg/dL (70-99) 302 mg/dL (70-99) 137 mg/dL (70-99) White Blood Count 11.3 x10^3/uL (4.0-11.0) Red Blood Count 2.85 x10^6/uL (3.50-5.40) Hemoglobin 7.8 g/dL (12.0-15.5) Hematocrit 23.8 % (36.0-47.0) Mean Corpuscular Volume 84 fL (79-100) Mean Corpuscular Hemoglobin 27 pg (25-35) Mean Corpuscular Hemoglobin Concent 33 g/dL (31-37) Red Cell Distribution Width 17.6 % (11.5-14.5) Platelet Count 142 x10^3/uL (140-400) Neutrophils (%) (Auto) 88 % (31-73) Lymphocytes (%) (Auto) 6 % (24-48) Monocytes (%) (Auto) 3 % (0-9) Eosinophils (%) (Auto) 3 % (0-3) Basophils (%) (Auto) 0 % (0-3) Neutrophils # (Auto) 10.0 x10^3/uL (1.8-7.7) Lymphocytes # (Auto) 0.6 x10^3/uL (1.0-4.8) Monocytes # (Auto) 0.4 x10^3/uL (0.0-1.1) Eosinophils # (Auto) 0.3 x10^3/uL (0.0-0.7) Basophils # (Auto) 0.0 x10^3/uL (0.0-0.2) Sodium Level 138 mmol/L (136-145) Potassium Level 3.9 mmol/L (3.5-5.1) Chloride Level 103 mmol/L (98-107) Carbon Dioxide Level 31 mmol/L (21-32) Anion Gap 4 (6-14) Blood Urea Nitrogen 10 mg/dL (7-20) Creatinine 0.6 mg/dL (0.6-1.0) Estimated GFR (Cockcroft-Gault) 99.4 Glucose Level 182 mg/dL (70-99) Calcium Level 7.4 mg/dL (8.5-10.1) Test 06/15/20 12:58 Glucose (Fingerstick) 174 mg/dL (70-99) Medications Active Scripts Medications Dose Route/Sig Max Daily Dose Days Date Category Actos (Pioglitazone Hcl) 45 Mg Tablet 1 Tab PO DAILY 30 05/18/20 Reported Diclofenac Sodium 75 Mg Tablet.dr 1 Tab PO BID 05/18/20 Reported Klor-Con 10 (Potassium Chloride) 10 Meq Tablet.er 1 Tab PO DAILY 30 05/18/20 Reported Metformin Hcl 1,000 Mg Tablet 1,000 Mg PO BIDWMEALS 05/18/20 Reported Omeprazole 20 Mg Capsule.dr 1 Cap PO DAILY 05/18/20 Reported Lisinopril-Hctz 20-25 Mg Tab (Lisinopril/Hydrochlorothiazide) 1 Each Tablet 1 Tab PO DAILY 05/18/20 Reported Aspirin Ec (Aspirin) 81 Mg Tablet.dr 1 Tab PO DAILY 05/18/20 Reported Hydralazine Hcl 100 Mg Tablet 1 Tab PO BID 05/18/20 Reported Metoprolol Tartrate 50 Mg Tablet 1 Tab PO BID 05/18/20 Reported Rosuvastatin Calcium 10 Mg Tablet 10 Mg PO DAILY 05/18/[address] of abd 1. Dilated rectal vault with impacted stool with the lumen measuring up to 10 cm in transverse dimension. Surrounding wall thickening without pneumatosis or perforation. Presacral edema noted as well collectively raising the question of stercoral colitis. An enema could be attempted to help relieve versus manual decompaction as necessary. Proximal to this impacted stool the colonic luminal contents are somewhat hyperdense which could be related to blood products given history. No mass is appreciated and should this represent hemorrhage it could be originating from diverticuli or theoretically from pressure ulceration given the extent of impacted stool. 2. Redemonstration of groundglass and consolidative opacities throughout both lower lungs appearing slightly worsened at the left lung base. The previously seen left pleural effusion has resolved. 3. Mild hepatic steatosis. 4. Enlargement of the partially imaged heart. CXR : reviewed Moderate bilateral infiltrates could be secondary to atypical pneumonia or CHF. This appears similar to the prior study although there is improved aeration of the left lung base. Impression . IMPRESSION: 1. Acute hypoxic respiratory failure secondary to COVID-19 2. Abnormal chest x-ray/ARDS 3. Fever, resolved 4. Hypoglycemic encephalopathy, resolved. 5. Severe protein-calorie malnutrition. 6. Mild azotemia. 7. SARS-CoV-2 negative x2, May 18, May 19 8. + blood cultures, likely contaminant 9. Possible Boop 10. Negative CT angiogram for PE 11. Acute lung injury 11. SARS-CoV-2 positive on May 31/COVID-[address] 12[address]dominal [address] reviewed, per gi 13. Elevated lactic acid level 14. fecal impaction cxr 06/08 IMPRESSION: Moderate prominent bilateral interstitial lung markings likely congestive changes or interstitial infiltrates. Follow-up to resolution. Impression: CT Chest 1. No evidence of pulmonary embolism. 2. Mild left effusion and moderate bilateral infiltrates right worse than left. This could be ARDS or pulmonary edema or atypical pneumonia. Plan . Spoke with nurse will advance diet Continue oxygen supplementation Surgery signed off Restart Lovenox DC steroid SARS COVID 2, reported positive from 05/31, s/p Remdesivir ABX per ID DM per IM HTN per IM D/W RN and RT critically ill Total cumulative critical care time of 30 minutes, reviewing data, chest x-ray, and formulating a plan no overlap KING WHITTINGTON MD Jun 15, 2020 14:07
--- NOTE | 2020-06-15 15:38 | NUR ---
SS following up with discharge planning. Bed available at [facility], ; fax [phone]. Discharge orders phoned and faxed to [facility]. Pt will discharge today and go to [facility] at 1830 via [facility] transport, . Pt, pt's RN, and pt's family notified.
[2020-06-15] MEDS: ENOXAPARIN 40 MG/0.4 ML SYRINGE. SQ SCH (15:54)
--- NOTE | 2020-06-15 16:11 | NUR ---
Report given to MEIR Burgess at [facility].
[2020-06-15] MEDS ORDERED: ACET325T9 PO (16:45)
[2020-06-15] MEDS ORDERED: PIPE2.255 IV (16:46)
[2020-06-15] MEDS ORDERED: ENOX40DI SQ (16:47)
[2020-06-15] MEDS ORDERED: AMLO10TA8 PO (16:48)
[2020-06-15] MEDS ORDERED: HYDR12.58 PO (16:49)
[2020-06-15] MEDS ORDERED: LISI40TA2 PO (16:49)
[2020-06-15] MEDS ORDERED: LACT1CAP21 PO (16:51)
[2020-06-15] MEDS ORDERED: INSU100I13 SQ (16:52)
[2020-06-15] MEDS ORDERED: POLY17PO29 PO (16:52)
[2020-06-15] MEDS ORDERED: INSU100V6 SQ (16:53)
[2020-06-15] MEDS ORDERED: METH5TAB85 PO (16:55)
[2020-06-15] MEDS ORDERED: GUAI200T3 PO (16:55)
--- NOTE | 2020-06-15 19:11 | NUR ---
Patient discharged to [facility] via EMS. Day shift RN and this RN present during transfer to EMS [facility]. IV 20 LFA left intact. Patient belonging bag and discharge paperwork given to EMS. Day shift RN already gave report to [facility]. This RN called daughter Linda that patient had successfully left.
--- NOTE | 2020-06-16 09:01 | DS ---
DATE OF DISCHARGE: 06/15/2020 ADMISSION DIAGNOSES: Respiratory failure, sepsis, probable COVID-19 syndrome. DISCHARGE DIAGNOSES: Resolving COVID-19 (she was given remdesivir and broad spectrum antibiotics), resolving sepsis, resolving hypoglycemia, resolving encephalopathy, severe protein malnutrition, diabetes, hypertension, pneumonia; congestive heart failure, Gram-positive bacteremia, resolving; bradycardia, resolving; colitis, resolving; fecal impaction, resolving. CONSULTS: Dr. Lexa Hendrickson, Dr. Carlos Fay, Dr. Gao, Dr. Steve Cabrera. HOSPITAL COURSE: The patient is a pleasant middle-aged female who presented initially with respiratory failure with symptoms of COVID-19. She was admitted to the COVID-19 unit and was given remdesivir, broad-spectrum antibiotics, DuoNeb, oxygen, and we consulted Pulmonary. She did test positive for COVID. Above consults were obtained and over the next month, her sepsis very slowly resolved. Yesterday, I saw her and examined her, she was in the ICU. Heart tones were normal. Lungs were much clear. She was a little more alert, trying to eat. Discussed the case with the case management team. We decided to transfer her to [facility] for continued care. She is still suffering from chronic respiratory failure. DISPOSITION: Long-term acute care at [facility]. ACTIVITY: As tolerated. DIET: Low sodium. MEDICATIONS: Please see the MRAD. TOTAL TIME: 34 minutes. MIGUELL Nohemi TRIMBLE DO DR: STEPHANY/enedina JOB#: [id number] / [id number]
== END 2020-06-15 19:15 | DRG 871 ==
LOC: ER 08:32 → ED HOLD 09:44 → 6 SOUTH 10:57 → 1 WEST ICU 05-21 17:50 → 2 SOUTH 05-25 18:30 → 1 WEST ICU 05-30 12:45
PROVIDERS: ADMIT Family Medicine; ATTEND Family Medicine
PROC: 5A09557 Assistance with Respiratory Ventilation, Greater than 96 Consecutive Hours, Continuous Positive Airway Pressure (ICD-10-PCS; 2020-05-30)
PROC: 30233N1 Transfusion of Nonautologous Red Blood Cells into Peripheral Vein, Percutaneous Approach (ICD-10-PCS; principal; 2020-06-13)
DX: A41.89 Other specified sepsis (principal); G93.41 Metabolic encephalopathy; E43 Unspecified severe protein-calorie malnutrition; J96.01 Acute respiratory failure with hypoxia; J12.89 Other viral pneumonia; J96.21 Acute and chronic respiratory failure with hypoxia; U07.1 COVID-19; N17.9 Acute kidney failure, unspecified; K55.9 Vascular disorder of intestine, unspecified; K56.49 Other impaction of intestine; B37.9 Candidiasis, unspecified; B96.89 Other specified bacterial agents as the cause of diseases classified elsewhere; D64.9 Anemia, unspecified; E05.00 Thyrotoxicosis with diffuse goiter without thyrotoxic crisis or storm; E11.649 Type 2 diabetes mellitus with hypoglycemia without coma; E11.65 Type 2 diabetes mellitus with hyperglycemia; I11.0 Hypertensive heart disease with heart failure; I50.9 Heart failure, unspecified; K56.41 Fecal impaction; K76.0 Fatty (change of) liver, not elsewhere classified; T68.XXXA Hypothermia, initial encounter; Z82.49 Family history of ischemic heart disease and other diseases of the circulatory system; Z83.3 Family history of diabetes mellitus; Z86.73 Personal history of transient ischemic attack (TIA), and cerebral infarction without residual deficits; Z79.899 Other long term (current) drug therapy; Z68.35 Body mass index [BMI] 35.0-35.9, adult
CPT/HCPCS: 36415; 36600; 70450; 71045; 71275; 74177; 76536; 80048; 80053; 80076; 80202; 80307; 81001; 82140; 82550; 82565; 82728; 82805; 82962; 83036; 83605; 83615; 83735; 84100; 84145; 84439; 84443; 84445; 84481; 84484; 85007; 85014; 85018; 85025; 85379; 85610; 85730; 86140; 86850; 86900; 86901; 86920; 87040; 87070; 87086; 87205; 87493; 93005; 94618; 94640; 94660; 94760; 96361; 96374; 99285; C9113; G0480; J0360; J0696; J1650; J1815; J1940; J2270; J2543; J2920; J2930; J3370; J7030; J7040; J7050; P9016; Q9967; 97110-GO; 97110-GP; 97530-GO; 97535-GO; G0378; J7613; U0003-CS